=== PATIENT | female | born 1965 | race Caucasian/White ===

== ENCOUNTER 2016-09-14 23:57 | Inpatient (IN) | payer BC ==
[~2016-09-14] VITALS: Ht 154.9 cm; Wt 58.7 kg
[~2016-09-14 23:57] MED LIST: ASPI81TA3 PO; CLOP75TA27 PO; GEMF600T60 PO; GLIM4TAB PO; GLIP-95 PO; LANT3I SC; LISI10TA2 PO; OLME40TA14 PO; SITA1TAB7 PO
[2016-09-15 02:55] VITALS: BP 158/72; RESP 18
[2016-09-15] MEDS ORDERED: ACETAMINOPHEN 325 MG TAB PO PRN (04:30)
[2016-09-15] MEDS ORDERED: VANCOMYCIN 1 GM in NS 250 ML IVPB SCH ×2 (05:00→18:00)
[2016-09-15 05:27] VITALS: BP 137/82
[2016-09-15] MEDS ORDERED: GLUCOSE GEL 15 GRAM TUBE PO PRN ×2 (05:30)
[2016-09-15] MEDS ORDERED: DEXTROSE 50% 50 ML SYRINGE IV PRN ×2 (05:30)
[2016-09-15] MEDS ORDERED: GLUCAGON 1 MG INJ IM PRN (05:30)
[2016-09-15] MEDS: morphine 4 MG/ML VIAL IV PRN ×2 (05:39→20:42)
[2016-09-15 07:36] VITALS: BP 146/67; RESP 18
[2016-09-15 07:37] LABS: BASOPHILS % 0.2 % (0.0-2.0); EOSINOPHILS # 0.2 10^3/ul (0.0-0.5); EOSINOPHILS % 2.1 % (0.0-7.0); HEMATOCRIT 32.2 % (37.0-47.0); HEMOGLOBIN 10.9 g/dl (12.0-16.0); LYMPHOCYTES # 1.3 10^3/ul (0.8-2.9); LYMPHOCYTES % 15.9 % (15.0-51.0); MEAN CORPUSCULAR HEMOGLOBIN 30.4 pg (29.0-33.0); MEAN CORPUSCULAR VOLUME 89.3 fl (82.0-101.0); MEAN PLATELET VOLUME 8.8 fl (7.4-10.4); MONOCYTE # 0.7 10^3/ul (0.3-0.9); MONOCYTES % 9.2 % (0.0-11.0); NEUTROPHIL # 5.7 10^3/ul (1.6-7.5); NEUTROPHILS % 72.6 % (39.0-77.0); PLATELET COUNT 278 10^3/UL (140-440); RED CELL DISTRIBUTION WIDTH 14.9 % (11.5-14.5); UNCORRECTED WBC 7.9 10^3/ul (4.8-10.8); WHITE BLOOD COUNT 7.9 10^3/ul (4.8-10.8)
[2016-09-15 07:59] LABS: CONDITION 1; LH ANALYZER COMMENTS 1
[2016-09-15] MEDS ORDERED: metFORMIN 500 MG TAB PO SCH (08:00)
[2016-09-15] MEDS ORDERED: GLIMEPIRIDE 4 MG TAB PO SCH (08:00)
[2016-09-15 08:08] LABS: MAGNESIUM 1.8 mg/dl (1.7-2.5); PHOSPHORUS 3.9 mg/dl (2.5-4.9)
[2016-09-15] MEDS: ACCUCHECK XX SCH ×4 (08:15→21:00)
[2016-09-15] MEDS: CEFEPIME 1GM/50 ML (PMX) 50 ML IVPB SCH ×2 (08:15→22:03)
[2016-09-15] MEDS: CLOPIDOGREL 75 MG TAB PO SCH (08:16)
[2016-09-15] MEDS: ASPIRIN 81 MG TAB PO SCH (08:16)
[2016-09-15] MEDS: GEMFIBROZIL 600 MG TAB PO SCH ×2 (08:16→21:31)
[2016-09-15] MEDS: LINAGLIPTIN 5 MG TABLET PO SCH (08:16)
[2016-09-15 08:19] LABS: ALBUMIN 3.6 g/dl (3.3-4.9)
[2016-09-15] MEDS: LISINOPRIL 10 MG TAB PO SCH (08:19)
[2016-09-15 08:20] LABS: POTASSIUM 4.5 mmol/L (3.5-5.1)
[2016-09-15 08:22] LABS: ALBUMIN/GLOBULIN RATIO 1.02; BILIRUBIN,INDIRECT 0.3 mg/dl (0-1.1); BILIRUBIN,TOTAL 0.3 mg/dl (0.2-1.3); CREATININE 0.5 mg/dl (0.44-1.00); TOTAL PROTEIN 7.1 g/dl (6.1-8.1)
[2016-09-15] MEDS ORDERED: NON-FORMULARY/PATIENT OWN MED (Olmesartan Medoxomil (Benicar) 40 MG) PO SCH (09:00)
[2016-09-15] MEDS ORDERED: NON-FORMULARY/PATIENT OWN MED (Sitagliptin Phos-Metformin Hcl (Janumet) 1 TAB) PO SCH (09:00)
[2016-09-15] MEDS ORDERED: LOSARTAN 50 MG TAB PO SCH (09:00)
[2016-09-15] MEDS ORDERED: VANCOMYCIN IV PER PHARMACY XX SCH (09:00)
[2016-09-15] MEDS: INSULIN ASPART [NOVOLOG] 3 ML PEN SC SCH ×4 (09:46→21:59)
--- NOTE | 2016-09-15 10:25 | HP ---
DATE OF ADMISSION: 09/15/2016 CHIEF COMPLAINT: Right fourth toe pain and ulcer. 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 The patient recently had the total leg amputation at the [facility] in July. She stated that she had noticed some redness on the dorsum of her right foot as well as so me ulcer between the 4th and the 5th toe, which is also very tender, especially with movement of he art rate toes. She denied any chest pain, shortness of breath, nausea, vomiting, but reported occas ional subjective fever. Again, the patient has been transferred here to [facility] because of insurance re asons. The is at the bedside. REVIEW OF SYSTEMS: A 12-point review performed and negative except as mentioned in HPI. PAST MEDICAL HISTORY: As per HPI. PAST SURGICAL HISTORY: As per HPI. SOCIAL HISTORY: Denied a history of tobacco, alcohol or illicit drug use. ALLERGIES: NO KNOWN DRUG ALLERGIES. HOME MEDICATIONS: See medications. PHYSICAL EXAMINATION: GENERAL: The patient is lying in bed in no acute distress. She speaks very limited Beninese, but an swering questions appropriately through a comp field case manager. is at the bedside. The marquita ent has at the bedside who also provided some information. HEENT: She is but no obvious head deformity. Pupils are reactive to light. Extraocular muscles in tact. CARDIOVASCULAR: Slightly tachycardic with regular rate and rhythm. LUNGS: Clear anteriorly. ABDOMEN: Soft, nontender. No grimaces noted on palpation. There are positive bowel sounds. EXTREMITIES: Her left leg just completely amputated at the hip, which is covered with a draining tu be in site. There is an ulcer between the right 4th and 5th toe which was also very tender during t he examination. The ulcer did not have any drainage. There is also a small area of erythema on the dorsum of her right foot. LABORATORY: Currently pending here. IMPRESSION: 1. Right foot diabetic ulcer. 2. Recent left total leg amputation. 3. History of diabetes. 4. History of hypertension. 5. History of peripheral vascular disease. PLAN: The patient will be placed on broad spectrum antibiotics including coverage for pseudomonas, especially given that she is diabetic. We will send a blood culture as well as a wound culture. We will place an ID consult. We will also place a wound care consult. The daytime team needs to plac e a podiatry consult as well. We will provide pain medications as needed. For her diabetes, she wi ll be on insulin while in house. She will be continued with her antihypertensives with adjustment a s needed. Further workup and management will be per clinical course. Dictated By: RHETT WEST/TRACE Conf#: [id number] DID#: [id number]
--- NOTE | 2016-09-15 11:51 | PN ---
Date/Time of Note Date/Time of Note DATE: 09/15/16 TIME: 11:46 Assessment/Plan VTE Prophylaxis VTE Prophylaxis Intervention: contraindicated (May need surgery.) Lines/Catheters IV Catheter Type (from Nrs): Saline Lock Urinary Cath still in place: No Assessment/Plan Chief Complaint/Hosp Course Subjective: 09/15-pain improved. No fever toxicity. Objective: vss PE No pallor adenopathy or carotid bruits Reg, no m/r/g CTAB Bs+ nt nd, no M/R/G LLE: AKA status w drain. RLE: Erythema third to fifth toes. Poor pulses. Diabetic neuropathy. No warmth. A/P 1. Rt lwr extremity SSTI vs lymphangitis vs ischemia. Stable consult podiatry / ID. 2. Left AKA status; continue drain care 3. Chronic diabetes over 20 years 4. Diabetic neuropathy 5. Chr PAD; ho lt angioplasty. Rt SFA dz? Cont asa/ Plavix. Dr Finley consult? 6. Anemia 7. Deconditioning 8. Metabolic syndrome 9. Constipation hemorrhoids Problems: Exam/Review of Systems Vital Signs Vitals Vital Signs Date Time Temp Pulse Resp B/P Pulse Ox O2 Delivery O2 Flow Rate FiO2 09/15/16 07:36 98.8 80 18 146/67 96 Intake and Output 09/14/16 09/14/16 09/15/16 15:00 23:00 07:00 Intake Total 100 ml Balance 100 ml Results Result Diagram: 09/15/16 0652 09/15/16 0652 Results 24 hrs Laboratory Tests Test 09/15/16 06:52 09/15/16 07:53 Alanine Aminotransferase (ALT/SGPT) 25 Albumin 3.6 Albumin/Globulin Ratio 1.02 Alkaline Phosphatase 127 H Anion Gap 14 Aspartate Amino Transf (AST/SGOT) 21 Basophils # 0.0 Basophils % 0.2 Blood Morphology Comment Blood Urea Nitrogen 14 Calcium Level 9.0 Carbon Dioxide Level 28 Chloride Level 104 Creatinine 0.50 Direct Bilirubin 0.00 Eosinophils # 0.2 Eosinophils % 2.1 Globulin 3.50 H Glucose Level 181 Hematocrit 32.2 L Hemoglobin 10.9 L Indirect Bilirubin 0.3 Lymphocytes # 1.3 Lymphocytes % 15.9 Magnesium Level 1.8 Mean Corpuscular Hemoglobin 30.4 Mean Corpuscular Hemoglobin Concent 34.0 Mean Corpuscular Volume 89.3 Mean Platelet Volume 8.8 Monocytes # 0.7 Monocytes % 9.2 Neutrophils # 5.7 Neutrophils % 72.6 Nucleated Red Blood Cells # 0.0 Nucleated Red Blood Cells % 0.0 Phosphorus Level 3.9 Platelet Count 278 # Potassium Level 4.5 Red Blood Count 3.60 L Red Cell Distribution Width 14.9 H Sodium Level 141 Total Bilirubin 0.3 Total Protein 7.1 White Blood Count 7.9 # Bedside Glucose 170 Medications Medications Current Medications Acetaminophen (Tylenol Tab) 650 mg Q6H PRN PO PAIN AND OR ELEVATED TEMP; Start 09/15/16 at 04:30 Morphine Sulfate (morphine) 3 mg Q4H PRN IV PAIN LEVEL 7-10 Last administered on 09/15/16 05:39; Admin Dose 3 MG; Start 09/15/16 at 04:30 Ondansetron HCl 4 mg 4 mg Q6H PRN IV NAUSEA AND/OR VOMITING; Start 09/15/16 at 04:30 Cefepime HCl (Maxipime 1gm/50 ml (Pmx)) 50 ml @ 100 mls/hr Q12 IVPB Last administered on 09/15/16 08:15; Admin Dose 100 MLS/HR; Start 09/15/16 at 09:00 Aspirin (Aspirin) 81 mg DAILY PO Last administered on 09/15/16 08:16; Admin Dose 81 MG; Start 09/15/16 at 09:00 Clopidogrel Bisulfate (plaVIX) 75 mg DAILY PO Last administered on 09/15/16 08 :16; Admin Dose 75 MG; Start 09/15/16 at 09:00 Gemfibrozil (Lopid) 600 mg BID PO Last administered on 09/15/16 08:16; Admin Dose 600 MG; Start 09/15/16 at 09:00 Insulin Glargine (Lantus) 20 unit HS SC ; Start 09/15/16 at 21:00 Lisinopril (Zestril) 10 mg DAILY PO Last administered on 09/15/16 08:19; Admin Dose 10 MG; Start 09/15/16 at 09:00 Diagnostic Test (Pha) (Accucheck) 1 ea 02 XX ; Start 09/16/16 at 02:00 Miscellaneous Information 1 ea NOTE XX ; Start 09/15/16 at 05:30 Glucose (Glutose) 15 gm Q15M PRN PO DECREASED GLUCOSE; Start 09/15/16 at 05:30 Glucose (Glutose) 22.5 gm Q15M PRN PO DECREASED GLUCOSE; Start 09/15/16 at 05: 30 Dextrose (D50w Syringe) 25 ml Q15M PRN IV DECREASED GLUCOSE; Start 09/15/16 at 05:30 Dextrose (D50w Syringe) 50 ml Q15M PRN IV DECREASED GLUCOSE; Start 09/15/16 at 05:30 Glucagon (Glucagen) 1 mg Q15M PRN IM DECREASED GLUCOSE; Start 09/15/16 at 05:30 Glucose (Glutose) 15 gm Q15M PRN BUCCAL DECREASED GLUCOSE; Start 09/15/16 at 05 :30 Linagliptin (Tradjenta) 5 mg DAILY PO Last administered on 09/15/16t 08:16; Admin Dose 5 MG; Start 09/15/16 at 09:00 GASTON CELAYA MD Sep 15, 2016 11:51
[2016-09-15] MEDS ORDERED: HYDROCORTISONE 25 MG SUPP PR PRN (12:00)
--- NOTE | 2016-09-15 13:52 | RADRPT ---
PROCEDURE: XR Chest. CLINICAL INDICATION: Diabetic foot ulcer. Screening chest x-ray. TECHNIQUE: Single frontal view of the chest was obtained COMPARISON: Chest x-ray 02/12/2015; chest x-ray 02/12/2015. FINDINGS: The soft tissues are normal. The bony elements are normal. The heart, left side aorta, cardiomedias tinal silhouette, pulmonary vasculature and hilar structures are normal. The lungs are clear. The co stophrenic angles are normal. There is a nodular density projecting at the level of the anterior rig ht first rib which is stable and likely represents costicartilage. A lordotic view can be performed if desired for confirmation. IMPRESSION: 1. Stable chest x-ray with no evidence of active cardiopulmonary disease. RPTAT:AAJJ Physician Fred Date Time Electronically viewed and signed by Roel Cole Physician on 09/15/2016 13:52 OBDULIA/
--- NOTE | 2016-09-15 13:54 | QN ---
Documentation Comment Right diabetic foot infection. ID consult requested. Dr. Elias will see pt shortly. Thank you. APURVA VILLAREAL NP Sep 15, 2016 13:54
--- NOTE | 2016-09-15 14:43 | RADRPT ---
Vent Rate: 79 bpm RR Interval: 0 msec AK Interval: 158 msec QRS Duration: 74 msec QT Interval: 374 msec QTC Interval: 428 msec P-R-T [place]: 63 - -54 - 41 degrees Normal sinus rhythm Left anterior fascicular block Abnormal ECG Electronically Signed By: Flaco Kohler [id number]
[2016-09-15 19:34] VITALS: BP 142/79; RESP 16
[2016-09-15] MEDS ORDERED: INSULIN GLARGINE [LANtus] 3 ML PEN SC SCH (21:00)
[2016-09-15] MEDS: LACTOBACILLUS CHEW TAB PO SCH (21:31)
[2016-09-15] MEDS: DOCUSATE SODIUM 100 MG CAP PO SCH (21:31)
--- NOTE | 2016-09-15 23:04 | CONS ---
Date/Time of Note Date/Time of Note DATE: 09/15/16 TIME: 22:59 Assessment/Plan Assessment/Plan Problems: (1) Open wound of right foot (2) Cellulitis of right foot (3) Diabetes, polyneuropathy (4) History of above knee amputation (5) Peripheral vascular disease Additional Assessment/Plan Patient is at risk for limb loss. She is already status post above-knee amputation of the left lower extremity secondary to an infection. Patient must continue on IV antibiotics at this time. Peripheral vascular disease must be evaluated fully by vascular surgery. She may require incision and drainage with debridement of necrotic tissue of the right foot in the fourth webspace. Nonweightbearing on the right foot is ordered. Patient will be followed in- house. Thank you very much for involving me in the care of this patient. Consultation Date/Type/Reason Admit Date/Time Sep 15, 2016 at 02:30 Date of Consultation: Sep 15, 2016 Type of Consultation: Foot and ankle surgery Reason for Consultation Right foot infection and open wound. Hx of Present Illness Thank you very much for involving me in the care of this patient. As you very well know this is a 50-year-old female patient with multiple medical problems including recent below-knee amputation above the knee amputation 6 months ago secondary to infection and gangrene, peripheral vascular disease, hypertension, diabetes mellitus with peripheral neuropathy who has developed a new infection on her right foot with an open wound. I was consulted for evaluation and treatment. Patient is Colombian-speaking and her son was present and was translating for her in Colombian. As per history of present illness. Past Medical History As per history of present illness. Past Surgical History As per history of present illness. Social History As per history of present illness. Smoking Status: Never smoker Exam/Review of Systems Vital Signs Vitals Vital Signs Date Time Temp Pulse Resp B/P Pulse Ox O2 Delivery O2 Flow Rate FiO2 09/15/16 19:34 98.5 86 16 142/79 98 Intake and Output 09/14/16 09/14/16 09/15/16 15:00 23:00 07:00 Intake Total 100 ml Balance 100 ml Exam Patient is in no acute distress laying supine in bed. She is status post above- the-knee amputation of the left lower extremity well-healed with no complication. Right foot shows open wound in the fourth webspace with streaking noted from the webspace going proximally across the anterior medial ankle joint. There is edema present with erythema and malodor. No actual pus or bleeding noted. Dorsalis pedis pulses not palpable and capillary filling time is significantly delayed. Sensation is decreased to sharp dull vibratory and temperature stimuli. White count 7.9. Results Result Diagram: 09/15/16 0652 09/15/16 0652 Results 24 hrs Laboratory Tests Test 09/15/16 06:52 09/15/16 07:53 09/15/16 11:52 09/15/16 14:35 Alanine Aminotransferase (ALT/SGPT) 25 Albumin 3.6 Albumin/Globulin Ratio 1.02 Alkaline Phosphatase 127 H Anion Gap 14 Aspartate Amino Transf (AST/SGOT) 21 Basophils # 0.0 Basophils % 0.2 Blood Morphology Comment Blood Urea Nitrogen 14 Calcium Level 9.0 Carbon Dioxide Level 28 Chloride Level 104 Creatinine 0.50 Direct Bilirubin 0.00 Eosinophils # 0.2 Eosinophils % 2.1 Globulin 3.50 H Glucose Level 181 Hematocrit 32.2 L Hemoglobin 10.9 L Indirect Bilirubin 0.3 Lymphocytes # 1.3 Lymphocytes % 15.9 Magnesium Level 1.8 Mean Corpuscular Hemoglobin 30.4 Mean Corpuscular Hemoglobin Concent 34.0 Mean Corpuscular Volume 89.3 Mean Platelet Volume 8.8 Monocytes # 0.7 Monocytes % 9.2 Neutrophils # 5.7 Neutrophils % 72.6 Nucleated Red Blood Cells # 0.0 Nucleated Red Blood Cells % 0.0 Phosphorus Level 3.9 Platelet Count 278 # Potassium Level 4.5 Red Blood Count 3.60 L Red Cell Distribution Width 14.9 H Sodium Level 141 Total Bilirubin 0.3 Total Protein 7.1 White Blood Count 7.9 # Bedside Glucose 170 159 Urine Test NEGATIVE Test 09/15/16 17:25 09/15/16 21:39 Bedside Glucose 198 181 Medications Medications Current Medications Acetaminophen (Tylenol Tab) 650 mg Q6H PRN PO PAIN AND OR ELEVATED TEMP Last administered on 09/15/16 19:55; Admin Dose 650 MG; Start 09/15/16 at 04:30 Morphine Sulfate (morphine) 3 mg Q4H PRN IV PAIN LEVEL 7-10 Last administered on 09/15/16 20:42; Admin Dose 3 MG; Start 09/15/16 at 04:30 Ondansetron HCl 4 mg 4 mg Q6H PRN IV NAUSEA AND/OR VOMITING; Start 09/15/16 at 04:30 Cefepime HCl (Maxipime 1gm/50 ml (Pmx)) 50 ml @ 100 mls/hr Q12 IVPB Last administered on 09/15/16 22:03; Admin Dose 100 MLS/HR; Start 09/15/16 at 09:00 Aspirin (Aspirin) 81 mg DAILY PO Last administered on 09/15/16 08:16; Admin Dose 81 MG; Start 09/15/16 at 09:00 Clopidogrel Bisulfate (plaVIX) 75 mg DAILY PO Last administered on 09/15/16 08 :16; Admin Dose 75 MG; Start 09/15/16 at 09:00 Gemfibrozil (Lopid) 600 mg BID PO Last administered on 09/15/16 21:31; Admin Dose 600 MG; Start 09/15/16 at 09:00 Insulin Glargine (Lantus) 20 unit HS SC Last administered on 09/15/16 22:00; Admin Dose 20 UNIT; Start 09/15/16 at 21:00 Lisinopril (Zestril) 10 mg DAILY PO Last administered on 09/15/16 08:19; Admin Dose 10 MG; Start 09/15/16 at 09:00 Diagnostic Test (Pha) (Accucheck) 1 ea 02 XX ; Start 09/16/16 at 02:00 Miscellaneous Information 1 ea NOTE XX ; Start 09/15/16 at 05:30 Glucose (Glutose) 15 gm Q15M PRN PO DECREASED GLUCOSE; Start 09/15/16 at 05:30 Glucose (Glutose) 22.5 gm Q15M PRN PO DECREASED GLUCOSE; Start 09/15/16 at 05: 30 Dextrose (D50w Syringe) 25 ml Q15M PRN IV DECREASED GLUCOSE; Start 09/15/16 at 05:30 Dextrose (D50w Syringe) 50 ml Q15M PRN IV DECREASED GLUCOSE; Start 09/15/16 at 05:30 Glucagon (Glucagen) 1 mg Q15M PRN IM DECREASED GLUCOSE; Start 09/15/16 at 05:30 Glucose (Glutose) 15 gm Q15M PRN BUCCAL DECREASED GLUCOSE; Start 09/15/16 at 05 :30 Linagliptin (Tradjenta) 5 mg DAILY PO Last administered on 09/15/16 08:16; Admin Dose 5 MG; Start 09/15/16 at 09:00 Docusate Sodium (Colace) 200 mg HS PO Last administered on 09/15/16 21:31; Admin Dose 200 MG; Start 09/15/16 at 21:00 Hydrocortisone (Anusol-Hc Supp) 25 mg BID PRN [place] HEMORROID PAIN/ITCHING; Start 09/15/16 at 12:00 Acetaminophen/ Hydrocodone Bitart ([place] (10/325)) 1 tab Q4H PRN PO PAIN; Start 09/15/16 at 12:00 Lactobacillus Acidoph/ Bulgaricus 1 tab 1 tab BID PO Last administered on 21:31; Admin Dose 1 TAB; Start 09/15/16 at 21:00 Vancomycin HCl (Vancocin) 250 ml @ 125 mls/hr Q12H IVPB Last administered on 17:30; Admin Dose 125 MLS/HR; Start 09/15/16 at 18:00 Miscellaneous Information (*Rx Drug Level Order Reminder*) VANCO TROUGH @ 0, 500 ON... ONCE ONCE XX ; Start 09/16/16 at 05:00; Stop 09/16/16 at 05:01 MARIANA LING DPM Sep 15, 2016 23:04
[2016-09-16] MEDS: HYDROCODONE/APAP (10/325) TAB PO PRN (00:10)
[2016-09-16] MEDS: ACCUCHECK XX SCH ×5 (02:00→21:00)
[2016-09-16] MEDS ORDERED: ACCUCHECK XX SCH (02:00)
[2016-09-16] MEDS: GLUCOSE GEL 15 GRAM TUBE BUCCAL PRN ×2 (02:36→02:54)
[2016-09-16 05:32] LABS: BASOPHILS % 0.3 % (0.0-2.0); EOSINOPHILS # 0.2 10^3/ul (0.0-0.5); EOSINOPHILS % 2.9 % (0.0-7.0); HEMATOCRIT 32.7 % (37.0-47.0); HEMOGLOBIN 11.1 g/dl (12.0-16.0); LYMPHOCYTES # 1.1 10^3/ul (0.8-2.9); LYMPHOCYTES % 13.3 % (15.0-51.0); MEAN CORPUSCULAR HEMOGLOBIN 30.6 pg (29.0-33.0); MEAN CORPUSCULAR VOLUME 89.9 fl (82.0-101.0); MEAN PLATELET VOLUME 8.6 fl (7.4-10.4); MONOCYTE # 0.7 10^3/ul (0.3-0.9); MONOCYTES % 8.8 % (0.0-11.0); NEUTROPHIL # 6.4 10^3/ul (1.6-7.5); NEUTROPHILS % 74.7 % (39.0-77.0); PLATELET COUNT 309 10^3/UL (140-440); RED BLOOD COUNT 3.64 10^6/ul (4.20-5.40); RED CELL DISTRIBUTION WIDTH 14.3 % (11.5-14.5); UNCORRECTED WBC 8.5 10^3/ul (4.8-10.8); WHITE BLOOD COUNT 8.5 10^3/ul (4.8-10.8)
[2016-09-16 05:38] LABS: INR 1.11; PROTIME 14.3 Sec (12.2-14.2); PT RATIO 1.1
[2016-09-16 05:40] LABS: CONDITION 1
[2016-09-16 05:48] LABS: ALBUMIN 3.7 g/dl (3.3-4.9)
[2016-09-16 05:50] LABS: BILIRUBIN,INDIRECT 0.3 mg/dl (0-1.1); BILIRUBIN,TOTAL 0.3 mg/dl (0.2-1.3); CREATININE 0.55 mg/dl (0.44-1.00)
[2016-09-16 05:51] LABS: ALBUMIN/GLOBULIN RATIO 0.97; PHOSPHORUS 5.3 mg/dl (2.5-4.9); TOTAL PROTEIN 7.5 g/dl (6.1-8.1)
[2016-09-16 05:52] LABS: CALCIUM 9.5 mg/dl (8.4-10.2); MAGNESIUM 1.7 mg/dl (1.7-2.5)
[2016-09-16 06:21] LABS: THYROID STIMULATING HORMONE 3.29 MIU/L (0.465-4.680)
[2016-09-16 06:59] LABS: CHOL/HDL RATIO 3.1 RATIO
[2016-09-16 07:32] VITALS: BP 104/54; RESP 18
[2016-09-16] MEDS: INSULIN ASPART [NOVOLOG] 3 ML PEN SC SCH ×4 (08:00→21:00)
[2016-09-16] MEDS: ASPIRIN 81 MG TAB PO SCH (09:05)
[2016-09-16] MEDS: GEMFIBROZIL 600 MG TAB PO SCH ×2 (09:05→21:42)
[2016-09-16] MEDS: CLOPIDOGREL 75 MG TAB PO SCH (09:05)
[2016-09-16] MEDS: LINAGLIPTIN 5 MG TABLET PO SCH (09:05)
[2016-09-16] MEDS: LACTOBACILLUS CHEW TAB PO SCH ×2 (09:05→21:42)
[2016-09-16] MEDS: CEFEPIME 1GM/50 ML (PMX) 50 ML IVPB SCH (09:05)
[2016-09-16] MEDS: LISINOPRIL 10 MG TAB PO SCH (09:06)
[2016-09-16] MEDS: VANCOMYCIN 750 MG in SOD CHLORIDE 0.9% 150 ML IVPB SCH ×2 (11:15→21:52)
--- NOTE | 2016-09-16 12:27 | CONS ---
Date/Time of Note Date/Time of Note DATE: 09/16/16 TIME: 12:27 Assessment/Plan Assessment/Plan Additional Assessment/Plan asked to consult. patient seen and examined. full note to follow shortly. Consultation Date/Type/Reason Admit Date/Time Sep 15, 2016 at 02:30 Initial Consult Date 09/15/16 Type of Consultation: Foot and ankle surgery Exam/Review of Systems Vital Signs Vitals Vital Signs Date Time Temp Pulse Resp B/P Pulse Ox O2 Delivery O2 Flow Rate FiO2 09/16/16 07:32 97.8 68 18 104/54 98 Intake and Output 09/15/16 09/15/16 09/16/16 15:00 23:00 07:00 Intake Total 100 ml 1420 ml 100 ml Balance 100 ml 1420 ml 100 ml Results Result Diagram: 09/16/16 0445 09/16/16 0450 Results 24 hrs Laboratory Tests Test 09/15/16 14:35 09/15/16 17:25 09/15/16 21:39 09/16/16 02:30 Urine Test NEGATIVE Bedside Glucose 198 181 55 L Test 09/16/16 02:47 09/16/16 03:18 09/16/16 03:41 09/16/16 04:45 Bedside Glucose 53 L 87 88 Basophils # 0.0 Basophils % 0.3 Eosinophils # 0.2 Eosinophils % 2.9 Hematocrit 32.7 L Hemoglobin 11.1 L INR International Normalized Ratio 1.11 Lymphocytes # 1.1 Lymphocytes % 13.3 L Mean Corpuscular Hemoglobin 30.6 Mean Corpuscular Hemoglobin Concent 34.0 Mean Corpuscular Volume 89.9 Mean Platelet Volume 8.6 Monocytes # 0.7 Monocytes % 8.8 Neutrophils # 6.4 Neutrophils % 74.7 Nucleated Red Blood Cells # 0.0 Nucleated Red Blood Cells % 0.0 Platelet Count 309 Prothrombin Time 14.3 H Prothrombin Time Ratio 1.1 Red Blood Count 3.64 L Red Cell Distribution Width 14.3 Vancomycin Level Trough 19.9 White Blood Count 8.5 Test 09/16/16 04:50 09/16/16 06:00 09/16/16 07:38 09/16/16 11:59 Alanine Aminotransferase (ALT/SGPT) 19 Albumin 3.7 Albumin/Globulin Ratio 0.97 Alkaline Phosphatase 118 Anion Gap 14 Aspartate Amino Transf (AST/SGOT) 25 Blood Urea Nitrogen 19 Calcium Level 9.5 Carbon Dioxide Level 30 Chloride Level 98 Creatinine 0.55 Direct Bilirubin 0.00 Globulin 3.80 H Glucose Level 81 # Hemoglobin A1c 7.0 H Indirect Bilirubin 0.3 Magnesium Level 1.7 Phosphorus Level 5.3 H Potassium Level 4.0 Sodium Level 138 Thyroid Stimulating Hormone (TSH) 3.290 Total Bilirubin 0.3 Total Protein 7.5 Cholesterol Level 187 Cholesterol/HDL Ratio 3.1 HDL Cholesterol 60 LDL Cholesterol, Calculated 114 Triglycerides Level 64 Bedside Glucose 83 84 Medications Medications Current Medications Acetaminophen (Tylenol Tab) 650 mg Q6H PRN PO PAIN AND OR ELEVATED TEMP Last administered on 09/15/16 19:55; Admin Dose 650 MG; Start 09/15/16 at 04:30 Morphine Sulfate (morphine) 3 mg Q4H PRN IV PAIN LEVEL 7-10 Last administered on 09/15/16 20:42; Admin Dose 3 MG; Start 09/15/16 at 04:30 Ondansetron HCl 4 mg 4 mg Q6H PRN IV NAUSEA AND/OR VOMITING; Start 09/15/16 at 04:30 Cefepime HCl (Maxipime 1gm/50 ml (Pmx)) 50 ml @ 100 mls/hr Q12 IVPB Last administered on 09/16/16 09:05; Admin Dose 100 MLS/HR; Start 09/15/16 at 09:00 Aspirin (Aspirin) 81 mg DAILY PO Last administered on 09/16/16 09:05; Admin Dose 81 MG; Start 09/15/16 at 09:00 Clopidogrel Bisulfate (plaVIX) 75 mg DAILY PO Last administered on 09/16/16 09 :05; Admin Dose 75 MG; Start 09/15/16 at 09:00 Gemfibrozil (Lopid) 600 mg BID PO Last administered on 09/16/16 09:05; Admin Dose 600 MG; Start 09/15/16 at 09:00 Insulin Glargine (Lantus) 20 unit HS SC Last administered on 09/15/16 22:00; Admin Dose 20 UNIT; Start 09/15/16 at 21:00 Lisinopril (Zestril) 10 mg DAILY PO Last administered on 09/16/16 09:06; Admin Dose 10 MG; Start 09/15/16 at 09:00 Diagnostic Test (Pha) (Accucheck) 1 ea 02 XX ; Start 09/16/16 at 02:00 Miscellaneous Information 1 ea NOTE XX ; Start 09/15/16 at 05:30 Glucose (Glutose) 15 gm Q15M PRN PO DECREASED GLUCOSE; Start 09/15/16 at 05:30 Glucose (Glutose) 22.5 gm Q15M PRN PO DECREASED GLUCOSE; Start 09/15/16 at 05: 30 Dextrose (D50w Syringe) 25 ml Q15M PRN IV DECREASED GLUCOSE; Start 09/15/16 at 05:30 Dextrose (D50w Syringe) 50 ml Q15M PRN IV DECREASED GLUCOSE; Start 09/15/16 at 05:30 Glucagon (Glucagen) 1 mg Q15M PRN IM DECREASED GLUCOSE; Start 09/15/16 at 05:30 Glucose (Glutose) 15 gm Q15M PRN BUCCAL DECREASED GLUCOSE Last administered on 09/16/16 02:36; Admin Dose 15 GM; Start 09/15/16 at 05:30 Linagliptin (Tradjenta) 5 mg DAILY PO Last administered on 09/16/16 09:05; Admin Dose 5 MG; Start 09/15/16 at 09:00 Docusate Sodium (Colace) 200 mg HS PO Last administered on 09/15/16 21:31; Admin Dose 200 MG; Start 09/15/16 at 21:00 Hydrocortisone (Anusol-Hc Supp) 25 mg BID PRN [place] HEMORROID PAIN/ITCHING; Start 09/15/16 at 12:00 Acetaminophen/ Hydrocodone Bitart ([place] (10/325)) 1 tab Q4H PRN PO PAIN Last administered on 09/16/16 00:10; Admin Dose 1 TAB; Start 09/15/16 at 12:00 Lactobacillus Acidoph/ Bulgaricus 1 tab 1 tab BID PO Last administered on 09:05; Admin Dose 1 TAB; Start 09/15/16 at 21:00 Vancomycin HCl/ Sodium Chloride (Vancocin/NS) 150 ml @ 75 mls/hr Q12H IVPB Last administered on 09/16/16 11:15; Admin Dose 75 MLS/HR; Start 09/16/16 at 10 :00 MARIA DOLORES CHACON MD Sep 16, 2016 12:27
--- NOTE | 2016-09-16 15:16 | PN ---
Date/Time of Note Date/Time of Note DATE: 09/16/16 TIME: 15:13 Assessment/Plan VTE Prophylaxis VTE Prophylaxis Intervention: contraindicated (May need debridement; bleeding risk. Hold Lovenox) Lines/Catheters IV Catheter Type (from Nrs): [facility] Urinary Cath still in place: No Assessment/Plan Chief Complaint/Hosp Course Subjective: 09/15-pain improved. No fever toxicity. 09/16 very anxious. Mild pain. No fever. Objective: vss PE No pallor Reg, no m/r/g ctab Bs+ nt nd, no M/R/G LLE: hip disarticulation status w drain. RLE: Erythema third to fifth toes. Poor pulses. Diabetic neuropathy. No warmth. A/P 1. Rt lwr extremity SSTI vs lymphangitis vs ischemia. Stable, cont atb's; appreciate vascular/podiatry/ ID. 2. Lt hip disarticulation status; cont drain care 3. Chr diabetes over 20 years 4. Diabetic neuropathy 5. Chr PAD; ho lt angioplasty. Rt SFA dz? Cont asa/ Plavix. 6. Anemia 7. Deconditioning 8. Metabolic syndrome 9. Constipation hemorrhoids 10. Anxiety/adjustment disorder Problems: Exam/Review of Systems Vital Signs Vitals Vital Signs Date Time Temp Pulse Resp B/P Pulse Ox O2 Delivery O2 Flow Rate FiO2 09/16/16 07:32 97.8 68 18 104/54 98 Intake and Output 09/15/16 09/15/16 09/16/16 15:00 23:00 07:00 Intake Total 100 ml 1420 ml 100 ml Balance 100 ml 1420 ml 100 ml Results Result Diagram: 09/16/16 0445 09/16/16 0450 Results 24 hrs Laboratory Tests Test 09/15/16 17:25 09/15/16 21:39 09/16/16 02:30 09/16/16 02:47 Bedside Glucose 198 181 55 L 53 L Test 09/16/16 03:18 09/16/16 03:41 09/16/16 04:45 09/16/16 04:50 Bedside Glucose 87 88 Basophils # 0.0 Basophils % 0.3 Eosinophils # 0.2 Eosinophils % 2.9 Hematocrit 32.7 L Hemoglobin 11.1 L INR International Normalized Ratio 1.11 Lymphocytes # 1.1 Lymphocytes % 13.3 L Mean Corpuscular Hemoglobin 30.6 Mean Corpuscular Hemoglobin Concent 34.0 Mean Corpuscular Volume 89.9 Mean Platelet Volume 8.6 Monocytes # 0.7 Monocytes % 8.8 Neutrophils # 6.4 Neutrophils % 74.7 Nucleated Red Blood Cells # 0.0 Nucleated Red Blood Cells % 0.0 Platelet Count 309 Prothrombin Time 14.3 H Prothrombin Time Ratio 1.1 Red Blood Count 3.64 L Red Cell Distribution Width 14.3 Vancomycin Level Trough 19.9 White Blood Count 8.5 Alanine Aminotransferase (ALT/SGPT) 19 Albumin 3.7 Albumin/Globulin Ratio 0.97 Alkaline Phosphatase 118 Anion Gap 14 Aspartate Amino Transf (AST/SGOT) 25 Blood Urea Nitrogen 19 Calcium Level 9.5 Carbon Dioxide Level 30 Chloride Level 98 Creatinine 0.55 Direct Bilirubin 0.00 Globulin 3.80 H Glucose Level 81 # Hemoglobin A1c 7.0 H Indirect Bilirubin 0.3 Magnesium Level 1.7 Phosphorus Level 5.3 H Potassium Level 4.0 Sodium Level 138 Thyroid Stimulating Hormone (TSH) 3.290 Total Bilirubin 0.3 Total Protein 7.5 Test 09/16/16 06:00 09/16/16 07:38 09/16/16 11:59 Cholesterol Level 187 Cholesterol/HDL Ratio 3.1 HDL Cholesterol 60 LDL Cholesterol, Calculated 114 Triglycerides Level 64 Bedside Glucose 83 84 Medications Medications Current Medications Acetaminophen (Tylenol Tab) 650 mg Q6H PRN PO PAIN AND OR ELEVATED TEMP Last administered on 09/15/16 19:55; Admin Dose 650 MG; Start 09/15/16 at 04:30 Morphine Sulfate (morphine) 3 mg Q4H PRN IV PAIN LEVEL 7-10 Last administered on 09/15/16 20:42; Admin Dose 3 MG; Start 09/15/16 at 04:30 Ondansetron HCl 4 mg 4 mg Q6H PRN IV NAUSEA AND/OR VOMITING; Start 09/15/16 at 04:30 Cefepime HCl (Maxipime 1gm/50 ml (Pmx)) 50 ml @ 100 mls/hr Q12 IVPB Last administered on 09/16/16 09:05; Admin Dose 100 MLS/HR; Start 09/15/16 at 09:00 Aspirin (Aspirin) 81 mg DAILY PO Last administered on 09/16/16 09:05; Admin Dose 81 MG; Start 09/15/16 at 09:00 Clopidogrel Bisulfate (plaVIX) 75 mg DAILY PO Last administered on 09/16/16 09 :05; Admin Dose 75 MG; Start 09/15/16 at 09:00 Gemfibrozil (Lopid) 600 mg BID PO Last administered on 09/16/16 09:05; Admin Dose 600 MG; Start 09/15/16 at 09:00 Insulin Glargine (Lantus) 20 unit HS SC Last administered on 09/15/16 22:00; Admin Dose 20 UNIT; Start 09/15/16 at 21:00 Lisinopril (Zestril) 10 mg DAILY PO Last administered on 09/16/16 09:06; Admin Dose 10 MG; Start 09/15/16 at 09:00 Diagnostic Test (Pha) (Accucheck) 1 ea 02 XX ; Start 09/16/16 at 02:00 Miscellaneous Information 1 ea NOTE XX ; Start 09/15/16 at 05:30 Glucose (Glutose) 15 gm Q15M PRN PO DECREASED GLUCOSE; Start 09/15/16 at 05:30 Glucose (Glutose) 22.5 gm Q15M PRN PO DECREASED GLUCOSE; Start 09/15/16 at 05: 30 Dextrose (D50w Syringe) 25 ml Q15M PRN IV DECREASED GLUCOSE; Start 09/15/16 at 05:30 Dextrose (D50w Syringe) 50 ml Q15M PRN IV DECREASED GLUCOSE; Start 09/15/16 at 05:30 Glucagon (Glucagen) 1 mg Q15M PRN IM DECREASED GLUCOSE; Start 09/15/16 at 05:30 Glucose (Glutose) 15 gm Q15M PRN BUCCAL DECREASED GLUCOSE Last administered on 09/16/16 02:36; Admin Dose 15 GM; Start 09/15/16 at 05:30 Linagliptin (Tradjenta) 5 mg DAILY PO Last administered on 09/16/16 09:05; Admin Dose 5 MG; Start 09/15/16 at 09:00 Docusate Sodium (Colace) 200 mg HS PO Last administered on 09/15/16 21:31; Admin Dose 200 MG; Start 09/15/16 at 21:00 Hydrocortisone (Anusol-Hc Supp) 25 mg BID PRN [place] HEMORROID PAIN/ITCHING; Start 09/15/16 at 12:00 Acetaminophen/ Hydrocodone Bitart ([place] (10)) 1 tab Q4H PRN PO PAIN Last administered on 09/16/16 00:10; Admin Dose 1 TAB; Start 09/15/16 at 12:00 Lactobacillus Acidoph/ Bulgaricus 1 tab 1 tab BID PO Last administered on 09:05; Admin Dose 1 TAB; Start 09/15/16 at 21:00 Vancomycin HCl/ Sodium Chloride (Vancocin/NS) 150 ml @ 75 mls/hr Q12H IVPB Last administered on 09/16/16 11:15; Admin Dose 75 MLS/HR; Start 09/16/16 at 10 :00 Enoxaparin Sodium (Lovenox) 40 mg DAILY SC ; Start 09/16/16 at 15:00 Famotidine (Pepcid) 20 mg DAILY PO ; Start 09/16/16 at 15:00 GASTON CELAYA MD Sep 16, 2016 15:15
[2016-09-16] MEDS: FAMOTIDINE 20 MG TAB PO SCH (15:28)
[2016-09-16] MEDS: ENOXAPARIN 40 MG/0.4 ML SYG SC SCH (15:30)
[2016-09-16] MEDS: morphine 4 MG/ML VIAL IV PRN ×2 (15:34→21:43)
--- NOTE | 2016-09-16 16:19 | CONS ---
Date/Time of Note Date/Time of Note DATE: 09/16/16 TIME: 16:02 Assessment/Plan Assessment/Plan Chief Complaint/Hosp Course 1. dm foot ulcer 2. 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 hx of esbl e.coli 4. pvd 5. 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 She has a known hx of esbl e.coli and was treated at [facility] in summer. Constitutional: improved, no complaints Eyes: no complaints ENT: no complaints Respiratory: no complaints Cardiovascular: no complaints Gastrointestinal: no complaints Genitourinary: no complaints Musculoskeletal: no complaints Skin: no complaints Neurologic: no complaints Endocrine: no complaints Lymphatic: no complaints Psychological: nl mood/affect, no complaints Additional Comments right foot pain Past Medical History as per hpi Social History Smoking Status: Never smoker Exam/Review of Systems Vital Signs Vitals Vital Signs Date Time Temp Pulse Resp B/P Pulse Ox O2 Delivery O2 Flow Rate FiO2 09/16/16 07:32 97.8 68 18 104/54 98 Intake and Output 09/15/16 09/15/16 09/16/16 15:00 23:00 07:00 Intake Total 100 ml 1420 ml 100 ml Balance 100 ml 1420 ml 100 ml Exam Constitutional: alert, oriented, well developed Psych: nl mood/affect, no complaints Head: atraumatic, normocephalic Eyes: EOMI, PERRL, nl conjunctiva, nl lids, nl sclera ENMT: nl external ears & nose, nl lips & teeth, nl nasal mucosa & septum Neck: non-tender, supple Respiratory: clear to auscultation, normal air movement Cardiovascular: nl pulses, regular rate and rhythm Gastrointestinal: nl liver, spleen, non-tender, soft Musculoskeletal: nl extremities to inspection, nl gait and stance Extremities: normal pulses Neurological: [employer] II-XII intact, nl mental status, nl speech, nl strength Additional Comments small ulceration on right foot. Results Result Diagram: 09/16/16 0445 09/16/16 0450 Results 24 hrs Laboratory Tests Test 09/15/16 17:25 09/15/16 21:39 09/16/16 02:30 09/16/16 02:47 Bedside Glucose 198 181 55 L 53 L Test 09/16/16 03:18 09/16/16 03:41 09/16/16 04:45 09/16/16 04:50 Bedside Glucose 87 88 Basophils # 0.0 Basophils % 0.3 Eosinophils # 0.2 Eosinophils % 2.9 Hematocrit 32.7 L Hemoglobin 11.1 L INR International Normalized Ratio 1.11 Lymphocytes # 1.1 Lymphocytes % 13.3 L Mean Corpuscular Hemoglobin 30.6 Mean Corpuscular Hemoglobin Concent 34.0 Mean Corpuscular Volume 89.9 Mean Platelet Volume 8.6 Monocytes # 0.7 Monocytes % 8.8 Neutrophils # 6.4 Neutrophils % 74.7 Nucleated Red Blood Cells # 0.0 Nucleated Red Blood Cells % 0.0 Platelet Count 309 Prothrombin Time 14.3 H Prothrombin Time Ratio 1.1 Red Blood Count 3.64 L Red Cell Distribution Width 14.3 Vancomycin Level Trough 19.9 White Blood Count 8.5 Alanine Aminotransferase (ALT/SGPT) 19 Albumin 3.7 Albumin/Globulin Ratio 0.97 Alkaline Phosphatase 118 Anion Gap 14 Aspartate Amino Transf (AST/SGOT) 25 Blood Urea Nitrogen 19 Calcium Level 9.5 Carbon Dioxide Level 30 Chloride Level 98 Creatinine 0.55 Direct Bilirubin 0.00 Globulin 3.80 H Glucose Level 81 # Hemoglobin A1c 7.0 H Indirect Bilirubin 0.3 Magnesium Level 1.7 Phosphorus Level 5.3 H Potassium Level 4.0 Sodium Level 138 Thyroid Stimulating Hormone (TSH) 3.290 Total Bilirubin 0.3 Total Protein 7.5 Test 09/16/16 06:00 09/16/16 07:38 09/16/16 11:59 Cholesterol Level 187 Cholesterol/HDL Ratio 3.1 HDL Cholesterol 60 LDL Cholesterol, Calculated 114 Triglycerides Level 64 Bedside Glucose 83 84 Medications Medications Current Medications Acetaminophen (Tylenol Tab) 650 mg Q6H PRN PO PAIN AND OR ELEVATED TEMP Last administered on 09/15/16 19:55; Admin Dose 650 MG; Start 09/15/16 at 04:30 Morphine Sulfate (morphine) 3 mg Q4H PRN IV PAIN LEVEL 7-10 Last administered on 09/16/16 15:34; Admin Dose 3 MG; Start 09/15/16 at 04:30 Ondansetron HCl 4 mg 4 mg Q6H PRN IV NAUSEA AND/OR VOMITING; Start 09/15/16 at 04:30 Cefepime HCl (Maxipime 1gm/50 ml (Pmx)) 50 ml @ 100 mls/hr Q12 IVPB Last administered on 09/16/16 09:05; Admin Dose 100 MLS/HR; Start 09/15/16 at 09:00 Aspirin (Aspirin) 81 mg DAILY PO Last administered on 09/16/16 09:05; Admin Dose 81 MG; Start 09/15/16 at 09:00 Clopidogrel Bisulfate (plaVIX) 75 mg DAILY PO Last administered on 09/16/16 09 :05; Admin Dose 75 MG; Start 09/15/16 at 09:00 Gemfibrozil (Lopid) 600 mg BID PO Last administered on 09/16/16 09:05; Admin Dose 600 MG; Start 09/15/16 at 09:00 Lisinopril (Zestril) 10 mg DAILY PO Last administered on 09/16/16 09:06; Admin Dose 10 MG; Start 09/15/16 at 09:00 Diagnostic Test (Pha) (Accucheck) 1 ea 02 XX ; Start 09/16/16 at 02:00 Miscellaneous Information 1 ea NOTE XX ; Start 09/15/16 at 05:30 Glucose (Glutose) 15 gm Q15M PRN PO DECREASED GLUCOSE; Start 09/15/16 at 05:30 Glucose (Glutose) 22.5 gm Q15M PRN PO DECREASED GLUCOSE; Start 09/15/16 at 05: 30 Dextrose (D50w Syringe) 25 ml Q15M PRN IV DECREASED GLUCOSE; Start 09/15/16 at 05:30 Dextrose (D50w Syringe) 50 ml Q15M PRN IV DECREASED GLUCOSE; Start 09/15/16 at 05:30 Glucagon (Glucagen) 1 mg Q15M PRN IM DECREASED GLUCOSE; Start 09/15/16 at 05:30 Glucose (Glutose) 15 gm Q15M PRN BUCCAL DECREASED GLUCOSE Last administered on 09/16/16 02:36; Admin Dose 15 GM; Start 09/15/16 at 05:30 Linagliptin (Tradjenta) 5 mg DAILY PO Last administered on 09/16/16 09:05; Admin Dose 5 MG; Start 09/15/16 at 09:00 Docusate Sodium (Colace) 200 mg HS PO Last administered on 09/15/16 21:31; Admin Dose 200 MG; Start 09/15/16 at 21:00 Hydrocortisone (Anusol-Hc Supp) 25 mg BID PRN [place] HEMORROID PAIN/ITCHING; Start 09/15/16 at 12:00 Acetaminophen/ Hydrocodone Bitart ([place] (10/325)) 1 tab Q4H PRN PO PAIN Last administered on 09/16/16 00:10; Admin Dose 1 TAB; Start 09/15/16 at 12:00 Lactobacillus Acidoph/ Bulgaricus 1 tab 1 tab BID PO Last administered on 09:05; Admin Dose 1 TAB; Start 09/15/16 at 21:00 Vancomycin HCl/ Sodium Chloride (Vancocin/NS) 150 ml @ 75 mls/hr Q12H IVPB Last administered on 09/16/16 11:15; Admin Dose 75 MLS/HR; Start 09/16/16 at 10 :00 Enoxaparin Sodium (Lovenox) 40 mg DAILY SC Last administered on 09/16/16 15:30 ; Admin Dose 40 MG; Start 09/16/16 at 15:00 Famotidine (Pepcid) 20 mg DAILY PO Last administered on 09/16/16 15:28; Admin Dose 20 MG; Start 09/16/16 at 15:00 Insulin Glargine (Lantus) 12 unit HS SC ; Start 09/16/16 at 21:00 MARIA DOLORES CHACON MD Sep 16, 2016 16:13
--- NOTE | 2016-09-16 17:16 | CONS ---
DATE OF ADMISSION: 09/15/2016 DATE OF CONSULTATION: 09/16/2016 REFERRING PHYSICIAN: GASTON CELAYA MD. REASON FOR CONSULTATION: Right fourth toe pain. HISTORY OF PRESENT ILLNESS: This is a 50-year-old woman with longstanding diabetes whom I last saw here in 03/2015. 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 Peroneal artery was occluded distally and the anterior t ibial artery was occluded right at the ankle. I did a thrombectomy and then angioplasty of the very distal anterior tibial and had a good result, but the gangrene in the foot just progressed and I kurtz d recommended a below knee amputation. She was having some psychiatric issues and trouble coming to terms with the foot that was just not salvageable but she did not come back to see me, and she was admitted here yesterday. Since then has basically allowed the gangrene to progress. Until about 6 or 7 months ago, she was in septic shock and was sent to [facility]. She is now here with the left hip dis articulation. It looks like they had to take a flap from the abdomen to close it. There are still VACs on the incision. I spoke to her son and he said that she had basically gone into septic shock and this was done again [facility]. She was there for quite some time and is still seeing the doctors jean paul davey. She came in now to basically because she was having pain in the right 4th toe has a little bit o f ecchymosis there. This started a few days ago. Given her history, she was very concerned and cam e to the emergency room. PAST MEDICAL HISTORY: Significant for diabetes, hypertension, peripheral arterial disease, previous gangrene of the left foot. PAST SURGICAL HISTORY: Significant again for this left lower extremity angioplasty and left hip dis articulation with extensive reconstruction. She still has a VAC in place in the abdomen in the left hip area. MEDICATIONS: Consist of: 1. Tylenol. 2. Morphine. 3. Zofran. 4. Maxipime 5. Aspirin. 6. Plavix. 7. Lopid. 8. Lantus. 9. Zestril. 10. Tradjenta. 11. Colace. 12. [place]. 13. Vancomycin. ALLERGIES: HAS NO KNOWN DRUG ALLERGIES. SOCIAL HISTORY: She is a nonsmoker. She does not drink or use any illicit drugs. FAMILY HISTORY: Significant for diabetes. REVIEW OF SYSTEMS: She currently denies any chest pain, shortness of breath, nausea, vomiting, diar laron. She does have constipation. No fevers, no chills, no recent weight gain or weight loss. She is nonambulatory with a left hip disarticulation in the back in place. PHYSICAL EXAMINATION GENERAL: She is a middle-aged woman. She is currently in no distress. NECK: She has 2+ carotid pulses bilaterally. LUNGS: Clear. HEART: Regular rate and rhythm. 2+ radial pulses bilaterally. ABDOMEN: Soft. There is a VAC in place in the midline which looks like a fairly recent incision. EXTREMITIES: She has 2+ right femoral and popliteal pulses, 1+ DP pulse. The right foot is warm a nd pink. There is some sort of a thick ecchymosis and some subcutaneous hemorrhage in the right 4th toe at the base of the toe. There is no open ulceration. There is no drainage. There is no real cyanosis or discoloration of the toe. On the left again, she has the hip disarticulation and there is a VAC there. There are multiple incisions that come together. There is no drainage or any eryth angela. It looks like it is healing well. LABORATORY VALUES. Show a normal creatinine. Hemoglobin A1c is a little elevated at 7. She has no t had any recent arterial studies, not since she was here almost 2 years ago. I am going to schedul e her for a duplex of the right lower extremity but the foot does not appear to be ischemic. I wond er if she did not have some microembolization there. When I did the angiogram on her left leg, it l ooked like she probably had some microembolization there as well. I actually did a suction thrombec jonathan of the very distal anterior tibial artery prior to angioplasty. She probably ought to be antic oagulated long-term. I am going to order some arterial studies. She is on Lovenox currently and so me aspirin and Plavix so for now that should be adequate but it has not broken down and the foot yusuf s not appear to be ischemic. She might even benefit from hyperbaric oxygen therapy if this is a yuliya roembolic event. Dictated By: KAYLEIGH IYER/NTS Conf#: [id number] DID#: [id number] CC: MARIANA LING DPM; MARIA DOLORES CHACON MD; GASTON CELAYA MD;*End*
[2016-09-16] MEDS: IMIPENEM-CILAST 500MG IV (PMX) 100 ML IVPB SCH (18:13)
--- NOTE | 2016-09-16 18:53 | RADRPT ---
PROCEDURE: US Lower extremity arterial. CLINICAL INDICATION: peripheral arterial disease, claudication, leg pain TECHNIQUE: Multiple sonographic images of the right lower extremity arteries were obtained utilizi ng grayscale, color-flow and doppler imaging. The images were reviewed on a PACS workstation. COMPARISON: February 12, 2015 FINDINGS: Diffuse vascular calcific plaque is present throughout the right lower extremity arterial system Velocities and waveforms were obtained as described below. RIGHT LEG: Right common femoral artery: 92 cm/s; biphasic waveforms Right proximal superficial femoral artery: 138 cm/s; monophasic waveforms Right mid superficial femoral artery: 119 cm/s; monophasic waveforms Right distal superficial femoral artery: 130 cm/s; monophasic waveforms Right popliteal artery: 90 cm/s; monophasic waveforms Right posterior tibial artery: 20 cm/s; monophasic waveforms Right dorsalis pedis artery: 59 cm/s; monophasic waveforms IMPRESSION: No hemodynamically significant stenosis or occlusion. Diffusely diminished wave forms involving the right lower extremity suggest diffuse atherosclerotic disease. Physician Anastacia Date Time Electronically viewed and signed by Physician Anastacia on 09/16/2016 18:53 ML/
[2016-09-16 19:58] VITALS: BP 127/60; PULSE 83; RESP 16
[2016-09-16] MEDS: INSULIN GLARGINE [LANtus] 3 ML PEN SC SCH (21:45)
[2016-09-16] MEDS: DOCUSATE SODIUM 100 MG CAP PO SCH (21:52)
[2016-09-17] MEDS: IMIPENEM-CILAST 500MG IV (PMX) 100 ML IVPB SCH ×4 (00:30→17:03)
[2016-09-17] MEDS: ACCUCHECK XX SCH ×5 (02:00→20:50)
[2016-09-17] MEDS: morphine 4 MG/ML VIAL IV PRN ×2 (05:33→18:13)
[2016-09-17 06:51] LABS: BASOPHILS % 0.2 % (0.0-2.0); EOSINOPHILS # 0.1 10^3/ul (0.0-0.5); EOSINOPHILS % 1.5 % (0.0-7.0); HEMOGLOBIN 11.3 g/dl (12.0-16.0); LYMPHOCYTES % 12.9 % (15.0-51.0); MEAN CORPUSCULAR HEMOGLOBIN 30.9 pg (29.0-33.0); MEAN CORPUSCULAR HGB CONC 34.3 g/dl (32.0-37.0); MEAN CORPUSCULAR VOLUME 90.1 fl (82.0-101.0); MEAN PLATELET VOLUME 8.8 fl (7.4-10.4); MONOCYTE # 0.7 10^3/ul (0.3-0.9); MONOCYTES % 9.1 % (0.0-11.0); NEUTROPHILS % 76.3 % (39.0-77.0); PLATELET COUNT 309 10^3/UL (140-440); RED BLOOD COUNT 3.66 10^6/ul (4.20-5.40); RED CELL DISTRIBUTION WIDTH 14.6 % (11.5-14.5); UNCORRECTED WBC 7.9 10^3/ul (4.8-10.8); WHITE BLOOD COUNT 7.9 10^3/ul (4.8-10.8)
[2016-09-17 06:58] LABS: CONDITION 1; LH ANALYZER COMMENTS 1
[2016-09-17 07:11] LABS: CREATININE 0.48 mg/dl (0.44-1.00); PHOSPHORUS 5.2 mg/dl (2.5-4.9)
[2016-09-17 07:12] LABS: MAGNESIUM 1.9 mg/dl (1.7-2.5)
[2016-09-17] MEDS: INSULIN ASPART [NOVOLOG] 3 ML PEN SC SCH ×4 (08:00→20:50)
[2016-09-17 08:06] VITALS: BP 136/64; RESP 18
[2016-09-17] MEDS: LINAGLIPTIN 5 MG TABLET PO SCH (09:28)
[2016-09-17] MEDS: GEMFIBROZIL 600 MG TAB PO SCH ×2 (09:28→20:45)
[2016-09-17] MEDS: CLOPIDOGREL 75 MG TAB PO SCH (09:28)
[2016-09-17] MEDS: FAMOTIDINE 20 MG TAB PO SCH (09:28)
[2016-09-17] MEDS: LISINOPRIL 10 MG TAB PO SCH (09:30)
[2016-09-17] MEDS: LACTOBACILLUS CHEW TAB PO SCH ×2 (09:30→20:45)
[2016-09-17] MEDS: ASPIRIN 81 MG TAB PO SCH (09:31)
[2016-09-17] MEDS: ENOXAPARIN 40 MG/0.4 ML SYG SC SCH (09:33)
[2016-09-17] MEDS: VANCOMYCIN 750 MG in SOD CHLORIDE 0.9% 150 ML IVPB SCH (09:34)
--- NOTE | 2016-09-17 12:55 | RADRPT ---
PROCEDURE: XR right foot. CLINICAL INDICATION: Evaluate for osteomyelitis TECHNIQUE: Three views of the right foot were obtained. COMPARISON: No prior studies are available for comparison. FINDINGS: There is no acute fracture or dislocation. There is mild joint space narrowing within the first met atarsophalangeal joint with osseous spurring. There is slight hammertoe deformity of the lesser met atarsophalangeal joints. The metatarsals are in alignment with the cuneiforms. No bony destructive changes are present. There is a small plantar calcaneal heel spur. There also enthesophytes within the posterior calcaneus at the insertion of the Achilles tendon. Atherosclerotic facet calcificati ons are noted. IMPRESSION: 1. No definite evidence for osteomyelitis although if there is a skin ulcer or high suspicion for o steomyelitis, a follow-up MRI may be obtained for additional evaluation. 2. 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 3. Plantar calcaneal heel spur and Achilles enthesopathy. 4. Atherosclerotic vascular disease. .Camilla Peterson MD, Date Time Electronically viewed and signed by .Camilla Peterson MD, on 09/17/2016 12:59 .T/
--- NOTE | 2016-09-17 14:00 | CONS ---
Date/Time of Note Date/Time of Note DATE: 09/17/16 TIME: 13:50 Assessment/Plan Assessment/Plan Chief Complaint/Hosp Course 1. Right diabetic foot ulcer with right foot SSTI 2. 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 hx of esbl e.coli infection 01/2015 4. PVD s/p catheter placement from R DOOR CUTTER into L DP artery, thrombectomy of L DP artery, revasc of L anterior tibial artery on 02/15/2015 5. IDDM Hgb A1c 7% 6. HTN associated with DM 7. ACD Recommendations: - Continue vanco (09/15/16-) and Imipenem (09/16/16-) - Consider MRI - F/u final right foot wound cx (prelim growing proteus, staph, and enterococcus ) - F/u blood cx 09/16/16 (pending) - F/u procalcitonin 09/16/16 (pending) and ESR (87) - F/u MRSA screen (pending) - Continue probiotic - Tight blood sugar control - Above d/w Dr. Elias Problems: Consultation Date/Type/Reason Admit Date/Time Sep 15, 2016 at 02:30 Initial Consult Date 09/16/16 Type of Consultation: Infectious Disease Referring Provider: GASTON CELAYA MD 24 HR Interval Summary Free Text/Dictation Pt with formed stool earlier, wound VACs intact and no new issues per CHEY Richards. Exam/Review of Systems Vital Signs Vitals Vital Signs Date Time Temp Pulse Resp B/P Pulse Ox O2 Delivery O2 Flow Rate FiO2 09/17/16 08:06 98.2 75 18 136/64 98 09/16/16 19:58 Room Air Intake and Output 09/16/16 09/16/16 09/17/16 15:00 23:00 07:00 Intake Total 250 ml 1140 ml 730 ml Balance 250 ml 1140 ml 730 ml Exam Constitutional: alert, oriented, well developed Head: atraumatic, normocephalic Neck: supple Respiratory: clear to auscultation, normal air movement Cardiovascular: regular rate and rhythm, No edema Gastrointestinal: non-tender, soft Extremities: other (Right 4th toe with bluish discoloration; small open sore in between 4th and 5th digits noted with mild erythema.) Neurological: nl mental status, nl speech Skin: other (Wound Vac to abdomen and Left hip are intact.) Results Right foot wound cx 09/15/16: WOUND CULTURE Preliminary Organism 1 PROTEUS MIRABILIS QUANTITY 1+ Organism 2 STAPHYLOCOCCUS SPECIES QUANTITY 2+ Organism 3 ENTEROCOCCUS SPECIES QUANTITY ISOLATED FROM BROTH ONLY P. MIRAB M.I.C. RX --------- --- AMPICILLIN <=2 S CEFOTAXIME S CIPROFLOXACIN >=4 R GENTAMICIN <=1 S LEVOFLOXACIN >=8 R TOBRAMYCIN <=1 S TRIMETHOPRIM/SULFAMETHOXAZOLE <=20 S Result Diagram: 09/17/1655 09/17/16554 Results 24 hrs Laboratory Tests Test 09/16/16 16:55 09/16/16 18:06 09/16/16 20:04 09/17/16 05:55 Erythrocyte Sedimentation Rate 87 H Bedside Glucose 106 153 Anion Gap 15 Basophils # 0.0 Basophils % 0.2 Blood Morphology Comment Blood Urea Nitrogen 17 Calcium Level 9.0 Carbon Dioxide Level 27 Chloride Level 100 Creatinine 0.48 Eosinophils # 0.1 Eosinophils % 1.5 Glucose Level 71 Hematocrit 33.0 L Hemoglobin 11.3 L Lymphocytes # 1.0 Lymphocytes % 12.9 L Magnesium Level 1.9 Mean Corpuscular Hemoglobin 30.9 Mean Corpuscular Hemoglobin Concent 34.3 Mean Corpuscular Volume 90.1 Mean Platelet Volume 8.8 Monocytes # 0.7 Monocytes % 9.1 Neutrophils # 6.0 Neutrophils % 76.3 Nucleated Red Blood Cells # 0.0 Nucleated Red Blood Cells % 0.0 Phosphorus Level 5.2 H Platelet Count 309 Potassium Level 4.0 Red Blood Count 3.66 L Red Cell Distribution Width 14.6 H Sodium Level 138 White Blood Count 7.9 Test 09/17/16 07:56 09/17/16 11:45 Bedside Glucose 70 99 Medications Medications Current Medications Acetaminophen (Tylenol Tab) 650 mg Q6H PRN PO PAIN AND OR ELEVATED TEMP Last administered on 09/15/16 19:55; Admin Dose 650 MG; Start 09/15/16 at 04:30 Morphine Sulfate (morphine) 3 mg Q4H PRN IV PAIN LEVEL 7-10 Last administered on 09/17/16 05:33; Admin Dose 3 MG; Start 09/15/16 at 04:30 Ondansetron HCl (Zofran Inj) 4 mg Q6H PRN IV NAUSEA AND/OR VOMITING; Start at 04:30 Aspirin (Aspirin) 81 mg DAILY PO Last administered on 09/17/16 09:31; Admin Dose 81 MG; Start 09/15/16 at 09:00 Clopidogrel Bisulfate (plaVIX) 75 mg DAILY PO Last administered on 09/17/16 09 :28; Admin Dose 75 MG; Start 09/15/16 at 09:00 Gemfibrozil (Lopid) 600 mg BID PO Last administered on 09/17/16 09:28; Admin Dose 600 MG; Start 09/15/16 at 09:00 Lisinopril (Zestril) 10 mg DAILY PO Last administered on 09/17/16 09:30; Admin Dose 10 MG; Start 09/15/16 at 09:00 Diagnostic Test (Pha) (Accucheck) 1 ea 02 XX ; Start 09/16/16 at 02:00 Miscellaneous Information 1 ea NOTE XX ; Start 09/15/16 at 05:30 Glucose (Glutose) 15 gm Q15M PRN PO DECREASED GLUCOSE; Start 09/15/16 at 05:30 Glucose (Glutose) 22.5 gm Q15M PRN PO DECREASED GLUCOSE; Start 09/15/16 at 05: 30 Dextrose (D50w Syringe) 25 ml Q15M PRN IV DECREASED GLUCOSE; Start 09/15/16 at 05:30 Dextrose (D50w Syringe) 50 ml Q15M PRN IV DECREASED GLUCOSE; Start 09/15/16 at 05:30 Glucagon (Glucagen) 1 mg Q15M PRN IM DECREASED GLUCOSE; Start 09/15/16 at 05:30 Glucose (Glutose) 15 gm Q15M PRN BUCCAL DECREASED GLUCOSE Last administered on 09/16/16 02:36; Admin Dose 15 GM; Start 09/15/16 at 05:30 Linagliptin (Tradjenta) 5 mg DAILY PO Last administered on 09/17/16 09:28; Admin Dose 5 MG; Start 09/15/16 at 09:00 Docusate Sodium (Colace) 200 mg HS PO Last administered on 09/16/16 21:52; Admin Dose 200 MG; Start 09/15/16 at 21:00 Hydrocortisone (Anusol-Hc Supp) 25 mg BID PRN [place] HEMORROID PAIN/ITCHING; Start 09/15/16 at 12:00 Acetaminophen/ Hydrocodone Bitart ([place] (10)) 1 tab Q4H PRN PO PAIN Last administered on 09/16/16 00:10; Admin Dose 1 TAB; Start 09/15/16 at 12:00 Lactobacillus Acidoph/ Bulgaricus 1 tab 1 tab BID PO Last administered on 09:30; Admin Dose 1 TAB; Start 09/15/16 at 21:00 Vancomycin HCl/ Sodium Chloride (Vancocin/NS) 150 ml @ 75 mls/hr Q12H IVPB Last administered on 09/17/16 09:34; Admin Dose 75 MLS/HR; Start 09/16/16 at 10 :00 Enoxaparin Sodium (Lovenox) 40 mg DAILY SC Last administered on 09/17/16 09:33 ; Admin Dose 40 MG; Start 09/16/16 at 15:00 Famotidine (Pepcid) 20 mg DAILY PO Last administered on 09/17/16 09:28; Admin Dose 20 MG; Start 09/16/16 at 15:00 Insulin Glargine 12 unit 12 unit HS SC Last administered on 09/16/16 21:45; Admin Dose 12 UNIT; Start 09/16/16 at 21:00 Imipenem/ Cilastatin Sodium (Primaxin 500 Mg/ 100 ml (Pmx)) 100 ml @ 100 mls/ hr Q6 IVPB Last administered on 09/17/16 12:34; Admin Dose 100 MLS/HR; Start 09/16/16 at 18:00 Miscellaneous Information (*Rx Drug Level Order Reminder*) 1 ONCE ONCE XX ; Start 09/17/16 at 21:00; Stop 09/17/16 at 21:01 Procedures Procedures Right foot x-ray 09/17/16: 1. No definite evidence for osteomyelitis although if there is a skin ulcer or high suspicion for osteomyelitis, a follow-up MRI may be obtained for additional evaluation. 2. 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 3. Plantar calcaneal heel spur and Achilles enthesopathy. 4. Atherosclerotic vascular disease. RLE arterial study 09/16/16: No hemodynamically significant stenosis or occlusion. Diffusely diminished wave forms involving the right lower extremity suggest diffuse atherosclerotic disease. CXR 09/15/16: Stable chest x-ray with no evidence of active cardiopulmonary disease. APURVA VILLAREAL NP Sep 17, 2016 14:00
[2016-09-17] MEDS: HYDROCODONE/APAP (10/325) TAB PO PRN (17:03)
--- NOTE | 2016-09-17 17:54 | PN ---
Date/Time of Note Date/Time of Note DATE: 09/17/16 TIME: 17:53 Assessment/Plan VTE Prophylaxis VTE Prophylaxis Intervention: LMWH Lines/Catheters IV Catheter Type (from Nrs): Peripheral IV Urinary Cath still in place: No Assessment/Plan Chief Complaint/Hosp Course Subjective: 09/15-pain improved. No fever toxicity. 09/16 very anxious. Mild pain. No fever. 09/17 no events. No fever toxicity. Tolerating antibiotics. Objective: vss PE No pallor Reg, no m/r/g ctab Bs+ nt nd, no M/R/G LLE: hip disarticulation status w drain. RLE: Erythema third to fifth toes. A/P 1. Rt lower ext- SSTI. Stable, cont atb's; appreciate vascular/podiatry/ID eval. 2. Lt hip disarticulation status; cont drain care 3. Chr diabetes over 20 years 4. Diabetic neuropathy 5. Chr PAD; ho lt angioplasty. Rt SFA dz? Cont asa/ Plavix. 6. Anemia 7. Deconditioning 8. Metabolic syndrome 9. Constipation hemorrhoids 10. Anxiety/adjustment disorder Problems: Exam/Review of Systems Vital Signs Vitals Vital Signs Date Time Temp Pulse Resp B/P Pulse Ox O2 Delivery O2 Flow Rate FiO2 09/17/16 08:06 98.2 75 18 136/64 98 09/16/16 19:58 Room Air Intake and Output 09/16/16 09/16/16 09/17/16 15:00 23:00 07:00 Intake Total 250 ml 1140 ml 730 ml Balance 250 ml 1140 ml 730 ml Results Result Diagram: 09/17/16 0555 09/17/16 0555 Results 24 hrs Laboratory Tests Test 09/16/16 18:06 09/16/16 20:04 09/17/16 05:55 09/17/16 07:56 Bedside Glucose 106 153 70 Anion Gap 15 Basophils # 0.0 Basophils % 0.2 Blood Morphology Comment Blood Urea Nitrogen 17 Calcium Level 9.0 Carbon Dioxide Level 27 Chloride Level 100 Creatinine 0.48 Eosinophils # 0.1 Eosinophils % 1.5 Glucose Level 71 Hematocrit 33.0 L Hemoglobin 11.3 L Lymphocytes # 1.0 Lymphocytes % 12.9 L Magnesium Level 1.9 Mean Corpuscular Hemoglobin 30.9 Mean Corpuscular Hemoglobin Concent 34.3 Mean Corpuscular Volume 90.1 Mean Platelet Volume 8.8 Monocytes # 0.7 Monocytes % 9.1 Neutrophils # 6.0 Neutrophils % 76.3 Nucleated Red Blood Cells # 0.0 Nucleated Red Blood Cells % 0.0 Phosphorus Level 5.2 H Platelet Count 309 Potassium Level 4.0 Red Blood Count 3.66 L Red Cell Distribution Width 14.6 H Sodium Level 138 White Blood Count 7.9 Test 09/17/16 11:45 09/17/16 16:46 Bedside Glucose 99 128 Medications Medications Current Medications Acetaminophen (Tylenol Tab) 650 mg Q6H PRN PO PAIN AND OR ELEVATED TEMP Last administered on 09/15/16 19:55; Admin Dose 650 MG; Start 09/15/16 at 04:30 Morphine Sulfate (morphine) 3 mg Q4H PRN IV PAIN LEVEL 7-10 Last administered on 09/17/16 05:33; Admin Dose 3 MG; Start 09/15/16 at 04:30 Ondansetron HCl (Zofran Inj) 4 mg Q6H PRN IV NAUSEA AND/OR VOMITING; Start at 04:30 Aspirin (Aspirin) 81 mg DAILY PO Last administered on 09/17/16 09:31; Admin Dose 81 MG; Start 09/15/16 at 09:00 Clopidogrel Bisulfate (plaVIX) 75 mg DAILY PO Last administered on 09/17/16 09 :28; Admin Dose 75 MG; Start 09/15/16 at 09:00 Gemfibrozil (Lopid) 600 mg BID PO Last administered on 09/17/16 09:28; Admin Dose 600 MG; Start 09/15/16 at 09:00 Lisinopril (Zestril) 10 mg DAILY PO Last administered on 09/17/16 09:30; Admin Dose 10 MG; Start 09/15/16 at 09:00 Diagnostic Test (Pha) (Accucheck) 1 ea 02 XX ; Start 09/16/16 at 02:00 Miscellaneous Information 1 ea NOTE XX ; Start 09/15/16 at 05:30 Glucose (Glutose) 15 gm Q15M PRN PO DECREASED GLUCOSE; Start 09/15/16 at 05:30 Glucose (Glutose) 22.5 gm Q15M PRN PO DECREASED GLUCOSE; Start 09/15/16 at 05: 30 Dextrose (D50w Syringe) 25 ml Q15M PRN IV DECREASED GLUCOSE; Start 09/15/16 at 05:30 Dextrose (D50w Syringe) 50 ml Q15M PRN IV DECREASED GLUCOSE; Start 09/15/16 at 05:30 Glucagon (Glucagen) 1 mg Q15M PRN IM DECREASED GLUCOSE; Start 09/15/16 at 05:30 Glucose (Glutose) 15 gm Q15M PRN BUCCAL DECREASED GLUCOSE Last administered on 09/16/16 02:36; Admin Dose 15 GM; Start 09/15/16 at 05:30 Linagliptin (Tradjenta) 5 mg DAILY PO Last administered on 09/17/16 09:28; Admin Dose 5 MG; Start 09/15/16 at 09:00 Docusate Sodium (Colace) 200 mg HS PO Last administered on 09/16/16 21:52; Admin Dose 200 MG; Start 09/15/16 at 21:00 Hydrocortisone (Anusol-Hc Supp) 25 mg BID PRN [place] HEMORROID PAIN/ITCHING; Start 09/15/16 at 12:00 Acetaminophen/ Hydrocodone Bitart ([place] (10/325)) 1 tab Q4H PRN PO PAIN Last administered on 09/17/16 17:03; Admin Dose 1 TAB; Start 09/15/16 at 12:00 Lactobacillus Acidoph/ Bulgaricus 1 tab 1 tab BID PO Last administered on 09:30; Admin Dose 1 TAB; Start 09/15/16 at 21:00 Vancomycin HCl/ Sodium Chloride (Vancocin/NS) 150 ml @ 75 mls/hr Q12H IVPB Last administered on 09/17/16 09:34; Admin Dose 75 MLS/HR; Start 09/16/16 at 10 :00 Enoxaparin Sodium (Lovenox) 40 mg DAILY SC Last administered on 09/17/16 09:33 ; Admin Dose 40 MG; Start 09/16/16 at 15:00 Famotidine (Pepcid) 20 mg DAILY PO Last administered on 09/17/16 09:28; Admin Dose 20 MG; Start 09/16/16 at 15:00 Insulin Glargine 12 unit 12 unit HS SC Last administered on 09/16/16 21:45; Admin Dose 12 UNIT; Start 09/16/16 at 21:00 Imipenem/ Cilastatin Sodium (Primaxin 500 Mg/ 100 ml (Pmx)) 100 ml @ 100 mls/ hr Q6 IVPB Last administered on 09/17/16t 17:03; Admin Dose 100 MLS/HR; Start 09/16/16 at 18:00 Miscellaneous Information (*Rx Drug Level Order Reminder*) 1 ONCE ONCE XX ; Start 09/17/16 at 21:00; Stop 09/17/16 at 21:01 GASTON CELAYA MD Sep 17, 2016 17:54
[2016-09-17 20:02] VITALS: BP 134/62; RESP 18
[2016-09-17] MEDS: DOCUSATE SODIUM 100 MG CAP PO SCH (20:46)
[2016-09-17] MEDS: INSULIN GLARGINE [LANtus] 3 ML PEN SC SCH (20:47)
[2016-09-17] MEDS: VANCOMYCIN 1 GM in NS 250 ML IVPB SCH (22:56)
--- NOTE | 2016-09-17 23:51 | PN ---
Date/Time of Note Date/Time of Note DATE: 09/17/16 TIME: 23:51 Assessment/Plan Lines/Catheters IV Catheter Type (from Nrs): Peripheral IV Vee in Place (from Nrs): No Assessment/Plan Problems: (1) Open wound of right foot (2) Cellulitis of right foot (3) Peripheral vascular disease (4) Diabetes, polyneuropathy (5) Adjustment disorder with depressed mood Status: Acute Assessment/Plan Continue IV antibiotics. No surgery recommended at this time. Patient is improving with the IV antibiotics. Patient will be followed in-house. Subjective 24 Hr Interval Summary Patient was seen and examined at bedside. She is status post infection of the right foot. Reports less pain today. States that she has been receiving IV antibiotics. Denies fever, chills, nausea or vomiting. Constitutional: no complaints Pain Control: well controlled Exam/Review of Systems Vital Signs Vitals Vital Signs Date Time Temp Pulse Resp B/P Pulse Ox O2 Delivery O2 Flow Rate FiO2 09/21/16 08:00 98.0 78 18 120/56 96 Room Air Intake and Output 09/20/16 09/20/16 09/21/16 15:00 23:00 07:00 Intake Total 730 ml 500 ml Output Total 0 ml Balance 730 ml 500 ml Exam Free Text/Dictation Right foot fourth webspace wound present with discoloration of the right fourth toe. There is decrease in streaking and erythema of the right foot. Nontender to palpation. No malodor present. Pulses noted but weak. No other changes noted on examination today. Labs reviewed. Results Result Diagram: 09/21/16 0435 09/21/16 0435 MARIANA LING DPM Sep 17, 2016 23:51
[2016-09-18] MEDS: morphine 4 MG/ML VIAL IV PRN ×2 (00:55→21:48)
[2016-09-18] MEDS: IMIPENEM-CILAST 500MG IV (PMX) 100 ML IVPB SCH ×4 (01:05→17:31)
[2016-09-18] MEDS: ACCUCHECK XX SCH ×5 (02:04→20:45)
[2016-09-18 07:15] VITALS: BP 104/54; RESP 16
[2016-09-18] MEDS: INSULIN ASPART [NOVOLOG] 3 ML PEN SC SCH ×4 (08:00→20:43)
[2016-09-18] MEDS: CLOPIDOGREL 75 MG TAB PO SCH (08:43)
[2016-09-18] MEDS: LISINOPRIL 10 MG TAB PO SCH (08:43)
[2016-09-18] MEDS: FAMOTIDINE 20 MG TAB PO SCH (08:43)
[2016-09-18] MEDS: ASPIRIN 81 MG TAB PO SCH (08:43)
[2016-09-18] MEDS: LACTOBACILLUS CHEW TAB PO SCH ×2 (08:43→20:45)
[2016-09-18] MEDS: ENOXAPARIN 40 MG/0.4 ML SYG SC SCH (08:44)
[2016-09-18] MEDS: LINAGLIPTIN 5 MG TABLET PO SCH (08:44)
[2016-09-18] MEDS: GEMFIBROZIL 600 MG TAB PO SCH ×2 (08:47→20:45)
[2016-09-18] MEDS: VANCOMYCIN 1 GM in NS 250 ML IVPB SCH ×2 (10:32→21:48)
--- NOTE | 2016-09-18 10:45 | PN ---
Date/Time of Note Date/Time of Note DATE: 09/18/16 TIME: 10:43 Assessment/Plan VTE Prophylaxis VTE Prophylaxis Intervention: LMWH Lines/Catheters IV Catheter Type (from Nrs): Saline Lock Urinary Cath still in place: No Assessment/Plan Chief Complaint/Hosp Course Subjective: 09/15-pain improved. No fever toxicity. 09/16 very anxious. Mild pain. No fever. 09/17 no events. No fever toxicity. Tolerating antibiotics. 217: No events. Updated son, who actually states patient has been more ambulatory and doing stairs at home w PT lately. Stable, less pain erythema. Objective: vss PE No pallor Reg, no m/r/g ctab Bs+ nt nd, no M/R/G LLE: hip disarticulation status w drain. RLE: Less erythema third to fifth toes. A/P 1. Rt lower ext- SSTI. Stable, cont atb's; appreciate vascular/podiatry/ID eval. PICC/IVs vs po's. Disposition snf? 2. Lt hip disarticulation status; cont drain care 3. Chr diabetes over 20 years 4. Diabetic neuropathy 5. Chr PAD; ho lt angioplasty. Rt SFA dz? Cont asa/ Plavix. 6. Anemia 7. Deconditioning 8. Metabolic syndrome 9. Constipation hemorrhoids 10. Anxiety/adjustment disorder Problems: Exam/Review of Systems Vital Signs Vitals Vital Signs Date Time Temp Pulse Resp B/P Pulse Ox O2 Delivery O2 Flow Rate FiO2 09/18/16 07:15 98.6 73 16 104/54 97 09/16/16 19:58 Room Air Intake and Output 09/17/16 09/17/16 09/18/16 15:00 23:00 07:00 Intake Total 250 ml 1340 ml 710 ml Output Total 1250 ml 600 ml Balance 250 ml 90 ml 110 ml Results Result Diagram: 09/17/16 0555 09/17/16 0555 Results 24 hrs Laboratory Tests Test 09/17/16 11:45 09/17/16 16:46 09/17/16 20:45 09/17/16 21:00 Bedside Glucose 99 128 198 Vancomycin Level Trough 11.5 Test 09/18/16 02:05 09/18/16 02:28 09/18/16 02:48 09/18/16 07:55 Bedside Glucose 61 L 95 118 75 Medications Medications Current Medications Acetaminophen (Tylenol Tab) 650 mg Q6H PRN PO PAIN AND OR ELEVATED TEMP Last administered on 09/15/16 19:55; Admin Dose 650 MG; Start 09/15/16 at 04:30 Morphine Sulfate (morphine) 3 mg Q4H PRN IV PAIN LEVEL 7-10 Last administered on 09/18/16 00:55; Admin Dose 3 MG; Start 09/15/16 at 04:30 Ondansetron HCl (Zofran Inj) 4 mg Q6H PRN IV NAUSEA AND/OR VOMITING; Start at 04:30 Aspirin (Aspirin) 81 mg DAILY PO Last administered on 09/18/16 08:43; Admin Dose 81 MG; Start 09/15/16 at 09:00 Clopidogrel Bisulfate (plaVIX) 75 mg DAILY PO Last administered on 09/18/16 08 :43; Admin Dose 75 MG; Start 09/15/16 at 09:00 Gemfibrozil (Lopid) 600 mg BID PO Last administered on 09/18/16 08:47; Admin Dose 600 MG; Start 09/15/16 at 09:00 Lisinopril (Zestril) 10 mg DAILY PO Last administered on 09/18/16 08:43; Admin Dose 10 MG; Start 09/15/16 at 09:00 Diagnostic Test (Pha) (Accucheck) 1 ea 02 XX Last administered on 09/18/16 02: 04; Admin Dose 1 EA; Start 09/16/16 at 02:00 Miscellaneous Information 1 ea NOTE XX ; Start 09/15/16 at 05:30 Glucose (Glutose) 15 gm Q15M PRN PO DECREASED GLUCOSE; Start 09/15/16 at 05:30 Glucose (Glutose) 22.5 gm Q15M PRN PO DECREASED GLUCOSE; Start 09/15/16 at 05: 30 Dextrose (D50w Syringe) 25 ml Q15M PRN IV DECREASED GLUCOSE; Start 09/15/16 at 05:30 Dextrose (D50w Syringe) 50 ml Q15M PRN IV DECREASED GLUCOSE; Start 09/15/16 at 05:30 Glucagon (Glucagen) 1 mg Q15M PRN IM DECREASED GLUCOSE; Start 09/15/16 at 05:30 Glucose (Glutose) 15 gm Q15M PRN BUCCAL DECREASED GLUCOSE Last administered on 09/16/16 02:36; Admin Dose 15 GM; Start 09/15/16 at 05:30 Linagliptin (Tradjenta) 5 mg DAILY PO Last administered on 09/18/16 08:44; Admin Dose 5 MG; Start 09/15/16 at 09:00 Docusate Sodium (Colace) 200 mg HS PO Last administered on 09/17/16 20:46; Admin Dose 200 MG; Start 09/15/16 at 21:00 Hydrocortisone (Anusol-Hc Supp) 25 mg BID PRN [place] HEMORROID PAIN/ITCHING; Start 09/15/16 at 12:00 Acetaminophen/ Hydrocodone Bitart ([place] (10325)) 1 tab Q4H PRN PO PAIN Last administered on 09/17/16 17:03; Admin Dose 1 TAB; Start 09/15/16 at 12:00 Lactobacillus Acidoph/Bulgaricus (Floranex) 1 tab BID PO Last administered on 08:43; Admin Dose 1 TAB; Start 09/15/16 at 21:00 Enoxaparin Sodium (Lovenox) 40 mg DAILY SC Last administered on 09/18/16 08:44 ; Admin Dose 40 MG; Start 09/16/16 at 15:00 Famotidine (Pepcid) 20 mg DAILY PO Last administered on 09/18/16 08:43; Admin Dose 20 MG; Start 09/16/16 at 15:00 Insulin Glargine 12 unit 12 unit HS SC Last administered on 09/17/16 20:47; Admin Dose 12 UNIT; Start 09/16/16 at 21:00 Imipenem/ Cilastatin Sodium 100 ml @ 100 mls/hr Q6 IVPB Last administered on 05:56; Admin Dose 100 MLS/HR; Start 09/16/16 at 18:00 Vancomycin HCl (Vancocin) 250 ml @ 125 mls/hr Q12H IVPB Last administered on 10:32; Admin Dose 125 MLS/HR; Start 09/17/16 at 22:00 GASTON CELAYA MD Sep 18, 2016 10:45
--- NOTE | 2016-09-18 11:18 | PN ---
Date/Time of Note Date/Time of Note DATE: 09/18/16 TIME: 11:16 Assessment/Plan VTE Prophylaxis VTE Prophylaxis Intervention: LMWH Lines/Catheters IV Catheter Type (from Nrs): Saline Lock Urinary Cath still in place: No Assessment/Plan Chief Complaint/Hosp Course Subjective: 09/15-pain improved. No fever toxicity. 09/16 very anxious. Mild pain. No fever. 09/17 no events. No fever toxicity. Tolerating antibiotics. 217: No events. Updated son, who stated that the pt has been more ambulatory lately/ doing stairs at home w PT. Stable, less pain erythema. Objective: vss PE No pallor Reg, no m/r/g ctab Bs+ nt nd, no M/R/G LLE: hip disarticulation status w drain. RLE: Less erythema third to fifth toes. A/P 1. Rt lower ext- SSTI. Stable, cont atb's. PICC/IVs vs po's. Disposition snf? 2. Lt hip disarticulation status; cont drain care 3. Chr diabetes over 20 years 4. Diabetic neuropathy 5. Chr PAD; ho lt angioplasty. Rt SFA dz? Cont asa/ Plavix. 6. Anemia 7. Deconditioning 8. Metabolic syndrome 9. Constipation hemorrhoids 10. Anxiety/adjustment disorder Problems: Exam/Review of Systems Vital Signs Vitals Vital Signs Date Time Temp Pulse Resp B/P Pulse Ox O2 Delivery O2 Flow Rate FiO2 09/18/16 07:15 98.6 73 16 104/54 97 09/16/16 19:58 Room Air Intake and Output 09/17/16 09/17/16 09/18/16 15:00 23:00 07:00 Intake Total 250 ml 1340 ml 710 ml Output Total 1250 ml 600 ml Balance 250 ml 90 ml 110 ml Results Result Diagram: 09/17/16 0555 09/17/16 0555 Results 24 hrs Laboratory Tests Test 09/17/16 11:45 09/17/16 16:46 09/17/16 20:45 09/17/16 21:00 Bedside Glucose 99 128 198 Vancomycin Level Trough 11.5 Test 09/18/16 02:05 09/18/16 02:28 09/18/16 02:48 09/18/16 07:55 Bedside Glucose 61 L 95 118 75 Medications Medications Current Medications Acetaminophen (Tylenol Tab) 650 mg Q6H PRN PO PAIN AND OR ELEVATED TEMP Last administered on 09/15/16 19:55; Admin Dose 650 MG; Start 09/15/16 at 04:30 Morphine Sulfate (morphine) 3 mg Q4H PRN IV PAIN LEVEL 7-10 Last administered on 09/18/16 00:55; Admin Dose 3 MG; Start 09/15/16 at 04:30 Ondansetron HCl (Zofran Inj) 4 mg Q6H PRN IV NAUSEA AND/OR VOMITING; Start at 04:30 Aspirin (Aspirin) 81 mg DAILY PO Last administered on 09/18/16 08:43; Admin Dose 81 MG; Start 09/15/16 at 09:00 Clopidogrel Bisulfate (plaVIX) 75 mg DAILY PO Last administered on 09/18/16 08 :43; Admin Dose 75 MG; Start 09/15/16 at 09:00 Gemfibrozil (Lopid) 600 mg BID PO Last administered on 09/18/16 08:47; Admin Dose 600 MG; Start 09/15/16 at 09:00 Lisinopril (Zestril) 10 mg DAILY PO Last administered on 09/18/16 08:43; Admin Dose 10 MG; Start 09/15/16 at 09:00 Diagnostic Test (Pha) (Accucheck) 1 ea 02 XX Last administered on 09/18/16 02: 04; Admin Dose 1 EA; Start 09/16/16 at 02:00 Miscellaneous Information 1 ea NOTE XX ; Start 09/15/16 at 05:30 Glucose (Glutose) 15 gm Q15M PRN PO DECREASED GLUCOSE; Start 09/15/16 at 05:30 Glucose (Glutose) 22.5 gm Q15M PRN PO DECREASED GLUCOSE; Start 09/15/16 at 05: 30 Dextrose (D50w Syringe) 25 ml Q15M PRN IV DECREASED GLUCOSE; Start 09/15/16 at 05:30 Dextrose (D50w Syringe) 50 ml Q15M PRN IV DECREASED GLUCOSE; Start 09/15/16 at 05:30 Glucagon (Glucagen) 1 mg Q15M PRN IM DECREASED GLUCOSE; Start 09/15/16 at 05:30 Glucose (Glutose) 15 gm Q15M PRN BUCCAL DECREASED GLUCOSE Last administered on 09/16/16 02:36; Admin Dose 15 GM; Start 09/15/16 at 05:30 Linagliptin (Tradjenta) 5 mg DAILY PO Last administered on 09/18/16 08:44; Admin Dose 5 MG; Start 09/15/16 at 09:00 Docusate Sodium (Colace) 200 mg HS PO Last administered on 09/17/16 20:46; Admin Dose 200 MG; Start 09/15/16 at 21:00 Hydrocortisone (Anusol-Hc Supp) 25 mg BID PRN [place] HEMORROID PAIN/ITCHING; Start 09/15/16 at 12:00 Acetaminophen/ Hydrocodone Bitart ([place] (10/325)) 1 tab Q4H PRN PO PAIN Last administered on 09/17/16 17:03; Admin Dose 1 TAB; Start 09/15/16 at 12:00 Lactobacillus Acidoph/Bulgaricus (Floranex) 1 tab BID PO Last administered on 08:43; Admin Dose 1 TAB; Start 09/15/16 at 21:00 Enoxaparin Sodium (Lovenox) 40 mg DAILY SC Last administered on 09/18/16 08:44 ; Admin Dose 40 MG; Start 09/16/16 at 15:00 Famotidine 20 mg 20 mg DAILY PO Last administered on 09/18/16 08:43; Admin Dose 20 MG; Start 09/16/16 at 15:00 Imipenem/ Cilastatin Sodium 100 ml @ 100 mls/hr Q6 IVPB Last administered on 05:56; Admin Dose 100 MLS/HR; Start 09/16/16 at 18:00 Vancomycin HCl (Vancocin) 250 ml @ 125 mls/hr Q12H IVPB Last administered on 10:32; Admin Dose 125 MLS/HR; Start 09/17/16 at 22:00 Insulin Glargine (Lantus) 9 unit HS SC ; Start 09/18/16 at 21:00 GASTON CELAYA MD Sep 18, 2016 11:18
--- NOTE | 2016-09-18 16:59 | CONS ---
Date/Time of Note Date/Time of Note DATE: 09/18/16 TIME: 16:58 Assessment/Plan Assessment/Plan Chief Complaint/Hosp Course 1. Right diabetic foot ulcer with right foot SSTI 2. 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 hx of esbl e.coli infection 01/2015 4. PVD s/p catheter placement from R PROMOTIONAL ADVERTISING ASSISTANT into L DP artery, thrombectomy of L DP artery, revasc of L anterior tibial artery on 02/15/2015 5. IDDM Hgb A1c 7% 6. HTN associated with DM 7. ACD Recommendations: - Continue vanco (09/15/16-) and Imipenem (09/16/16-) - Consider MRI - F/u final right foot wound cx (prelim growing proteus, staph, and enterococcus ) - F/u blood cx 09/16/16 (pending) - F/u procalcitonin 09/16/16 (pending) and ESR (87) - F/u MRSA screen (pending) - Continue probiotic - Consider dc colace - Tight blood sugar control - Above d/w Dr. Elias Problems: Consultation Date/Type/Reason Admit Date/Time Sep 15, 2016 at 02:30 Initial Consult Date 09/16/16 Type of Consultation: Infectious Disease Referring Provider: GASTON CELAYA MD Exam/Review of Systems Vital Signs Vitals Vital Signs Date Time Temp Pulse Resp B/P Pulse Ox O2 Delivery O2 Flow Rate FiO2 09/18/16 07:15 98.6 73 16 104/54 97 09/16/16 19:58 Room Air Intake and Output 09/17/16 09/17/16 09/18/16 15:00 23:00 07:00 Intake Total 250 ml 1340 ml 710 ml Output Total 1250 ml 600 ml Balance 250 ml 90 ml 110 ml Exam Constitutional: alert, oriented, well developed Head: atraumatic, normocephalic Neck: supple Respiratory: clear to auscultation, normal air movement Cardiovascular: regular rate and rhythm, No edema Gastrointestinal: non-tender, soft Extremities: other (Right 4th toe with bluish discoloration; small open sore in between 4th and 5th digits noted with mild erythema.) Neurological: nl mental status, nl speech Skin: other (Wound Vac to abdomen and Left hip are intact.) Results Result Diagram: 09/17/16 0555 09/17/16 0555 Results 24 hrs Laboratory Tests Test 09/17/16 20:45 09/17/16 21:00 09/18/16 02:05 09/18/16 02:28 Bedside Glucose 198 61 L 95 Vancomycin Level Trough 11.5 Test 09/18/16 02:48 09/18/16 07:55 09/18/16 11:42 Bedside Glucose 118 75 160 Medications Medications Current Medications Acetaminophen (Tylenol Tab) 650 mg Q6H PRN PO PAIN AND OR ELEVATED TEMP Last administered on 09/15/16 19:55; Admin Dose 650 MG; Start 09/15/16 at 04:30 Morphine Sulfate (morphine) 3 mg Q4H PRN IV PAIN LEVEL 7-10 Last administered on 09/18/16 00:55; Admin Dose 3 MG; Start 09/15/16 at 04:30 Ondansetron HCl (Zofran Inj) 4 mg Q6H PRN IV NAUSEA AND/OR VOMITING; Start at 04:30 Aspirin (Aspirin) 81 mg DAILY PO Last administered on 09/18/16 08:43; Admin Dose 81 MG; Start 09/15/16 at 09:00 Clopidogrel Bisulfate (plaVIX) 75 mg DAILY PO Last administered on 09/18/16 08 :43; Admin Dose 75 MG; Start 09/15/16 at 09:00 Gemfibrozil (Lopid) 600 mg BID PO Last administered on 09/18/16 08:47; Admin Dose 600 MG; Start 09/15/16 at 09:00 Lisinopril (Zestril) 10 mg DAILY PO Last administered on 09/18/16 08:43; Admin Dose 10 MG; Start 09/15/16 at 09:00 Diagnostic Test (Pha) (Accucheck) 1 ea 02 XX Last administered on 09/18/16 02: 04; Admin Dose 1 EA; Start 09/16/16 at 02:00 Miscellaneous Information 1 ea NOTE XX ; Start 09/15/16 at 05:30 Glucose (Glutose) 15 gm Q15M PRN PO DECREASED GLUCOSE; Start 09/15/16 at 05:30 Glucose (Glutose) 22.5 gm Q15M PRN PO DECREASED GLUCOSE; Start 09/15/16 at 05: 30 Dextrose (D50w Syringe) 25 ml Q15M PRN IV DECREASED GLUCOSE; Start 09/15/16 at 05:30 Dextrose (D50w Syringe) 50 ml Q15M PRN IV DECREASED GLUCOSE; Start 09/15/16 at 05:30 Glucagon (Glucagen) 1 mg Q15M PRN IM DECREASED GLUCOSE; Start 09/15/16 at 05:30 Glucose (Glutose) 15 gm Q15M PRN BUCCAL DECREASED GLUCOSE Last administered on 09/16/16 02:36; Admin Dose 15 GM; Start 09/15/16 at 05:30 Linagliptin (Tradjenta) 5 mg DAILY PO Last administered on 09/18/16 08:44; Admin Dose 5 MG; Start 09/15/16 at 09:00 Docusate Sodium (Colace) 200 mg HS PO Last administered on 09/17/16 20:46; Admin Dose 200 MG; Start 09/15/16 at 21:00 Hydrocortisone (Anusol-Hc Supp) 25 mg BID PRN [place] HEMORROID PAIN/ITCHING; Start 09/15/16 at 12:00 Acetaminophen/ Hydrocodone Bitart ([place] (10/325)) 1 tab Q4H PRN PO PAIN Last administered on 09/17/16 17:03; Admin Dose 1 TAB; Start 09/15/16 at 12:00 Lactobacillus Acidoph/Bulgaricus (Floranex) 1 tab BID PO Last administered on 08:43; Admin Dose 1 TAB; Start 09/15/16 at 21:00 Enoxaparin Sodium (Lovenox) 40 mg DAILY SC Last administered on 09/18/16 08:44 ; Admin Dose 40 MG; Start 09/16/16 at 15:00 Famotidine 20 mg 20 mg DAILY PO Last administered on 09/18/16 08:43; Admin Dose 20 MG; Start 09/16/16 at 15:00 Imipenem/ Cilastatin Sodium 100 ml @ 100 mls/hr Q6 IVPB Last administered on 13:23; Admin Dose 100 MLS/HR; Start 09/16/16 at 18:00 Vancomycin HCl (Vancocin) 250 ml @ 125 mls/hr Q12H IVPB Last administered on t 10:32; Admin Dose 125 MLS/HR; Start 09/17/16 at 22:00 Insulin Glargine (Lantus) 9 unit HS SC ; Start 09/18/16 at 21:00 Miscellaneous Information (*Rx Drug Level Order Reminder*) 1 ONCE ONCE XX ; Start 09/19/16 at 09:00; Stop 09/19/16 at 09:01 APURVA VILLAREAL NP Sep 18, 2016 16:59
--- NOTE | 2016-09-18 17:19 | CONS ---
Date/Time of Note Date/Time of Note DATE: 09/18/16 TIME: 17:12 Assessment/Plan Assessment/Plan Chief Complaint/Hosp Course 1. Right diabetic foot ulcer with right foot SSTI 2. 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 hx of esbl e.coli infection 01/2015 4. PVD s/p catheter placement from R EMERGENCY MEDICINE SPECIALIST into L DP artery, thrombectomy of L DP artery, revasc of L anterior tibial artery on 02/15/2015 5. IDDM Hgb A1c 7% 6. HTN associated with DM 7. ACD Recommendations: - Continue vanco (09/15/16-) and de-escalate Imipenem (09/16/16-) to Ceftriaxone; will likely need 7-14 day treatment for SSTI - Consider MRI to r/o OM - F/u final right foot wound cx (prelim growing proteus, CoNS, and enterococcus) - F/u procalcitonin 09/16/16 (pending) and ESR (87) - F/u MRSA screen (negative) - Continue probiotic - Check stool for C diff - Consider dc colace or hold for loose stool - Tight blood sugar control - Above d/w Dr. Elias Problems: Consultation Date/Type/Reason Admit Date/Time Sep 15, 2016 at 02:30 Initial Consult Date 09/16/16 Type of Consultation: Infectious Disease Referring Provider: GASTON CELAYA MD 24 HR Interval Summary Free Text/Dictation Remains afebrile and clinically unchanged per CHEY Brooke. Pt reports she did not have BM for 4 days prior to admission but has had a BM every day while hospitalized and today had loose stools. Denies SOB, abd pain, n/v, dysuria. Exam/Review of Systems Vital Signs Vitals Vital Signs Date Time Temp Pulse Resp B/P Pulse Ox O2 Delivery O2 Flow Rate FiO2 09/18/16 07:15 98.6 73 16 104/54 97 09/16/16 19:58 Room Air Intake and Output 09/17/16 09/17/16 09/18/16 15:00 23:00 07:00 Intake Total 250 ml 1340 ml 710 ml Output Total 1250 ml 600 ml Balance 250 ml 90 ml 110 ml Exam Constitutional: alert, oriented, well developed Head: atraumatic, normocephalic Neck: supple Respiratory: clear to auscultation, normal air movement Cardiovascular: regular rate and rhythm, No edema Gastrointestinal: non-tender, soft Extremities: other (Right 4th toe with bluish discoloration; small open sore in between 4th and 5th digits noted with mild erythema.) Neurological: nl mental status, nl speech Skin: other (Wound Vac to abdomen and Left hip are intact.) Results MICROBIOLOGY: Right foot wound cx 09/15/16: WOUND CULTURE Preliminary Organism 1 PROTEUS MIRABILIS QUANTITY 1+ Organism 2 COAGULASE NEGATIVE STAPH QUANTITY 2+ Organism 3 ENTEROCOCCUS SPECIES QUANTITY ISOLATED FROM BROTH ONLY P. MIRAB COAG NEG M.I.C. RX M.I.C. RX --------- --- --------- --- AMPICILLIN <=2 S CEFAZOLIN R CEFOTAXIME S CIPROFLOXACIN >=4 R >=8 R CLINDAMYCIN >=8 R DOXYCYCLINE S ERYTHROMYCIN >=8 R GENTAMICIN <=1 S LEVOFLOXACIN >=8 R >=8 R OXACILLIN >=4 R PENICILLIN-G >=0.5 R RIFAMPIN <=0.5 S VANCOMYCIN 1 S TOBRAMYCIN <=1 S TRIMETHOPRIM/SULFAMETHOXAZOLE <=20 S 160 R Result Diagram: 09/17/16 0555 09/17/16 0555 Results 24 hrs Laboratory Tests Test 09/17/16 20:45 09/17/16 21:00 09/18/16 02:05 09/18/16 02:28 Bedside Glucose 198 61 L 95 Vancomycin Level Trough 11.5 Test 09/18/16 02:48 09/18/16 07:55 09/18/16 11:42 Bedside Glucose 118 75 160 Medications Medications Current Medications Acetaminophen (Tylenol Tab) 650 mg Q6H PRN PO PAIN AND OR ELEVATED TEMP Last administered on 09/15/16 19:55; Admin Dose 650 MG; Start 09/15/16 at 04:30 Morphine Sulfate (morphine) 3 mg Q4H PRN IV PAIN LEVEL 7-10 Last administered on 09/18/16 00:55; Admin Dose 3 MG; Start 09/15/16 at 04:30 Ondansetron HCl (Zofran Inj) 4 mg Q6H PRN IV NAUSEA AND/OR VOMITING; Start at 04:30 Aspirin (Aspirin) 81 mg DAILY PO Last administered on 09/18/16 08:43; Admin Dose 81 MG; Start 09/15/16 at 09:00 Clopidogrel Bisulfate (plaVIX) 75 mg DAILY PO Last administered on 09/18/16 08 :43; Admin Dose 75 MG; Start 09/15/16 at 09:00 Gemfibrozil (Lopid) 600 mg BID PO Last administered on 09/18/16 08:47; Admin Dose 600 MG; Start 09/15/16 at 09:00 Lisinopril (Zestril) 10 mg DAILY PO Last administered on 09/18/16 08:43; Admin Dose 10 MG; Start 09/15/16 at 09:00 Diagnostic Test (Pha) (Accucheck) 1 ea 02 XX Last administered on 09/18/16 02: 04; Admin Dose 1 EA; Start 09/16/16 at 02:00 Miscellaneous Information 1 ea NOTE XX ; Start 09/15/16 at 05:30 Glucose (Glutose) 15 gm Q15M PRN PO DECREASED GLUCOSE; Start 09/15/16 at 05:30 Glucose (Glutose) 22.5 gm Q15M PRN PO DECREASED GLUCOSE; Start 09/15/16 at 05: 30 Dextrose (D50w Syringe) 25 ml Q15M PRN IV DECREASED GLUCOSE; Start 09/15/16 at 05:30 Dextrose (D50w Syringe) 50 ml Q15M PRN IV DECREASED GLUCOSE; Start 09/15/16 at 05:30 Glucagon (Glucagen) 1 mg Q15M PRN IM DECREASED GLUCOSE; Start 09/15/16 at 05:30 Glucose (Glutose) 15 gm Q15M PRN BUCCAL DECREASED GLUCOSE Last administered on 09/16/16 02:36; Admin Dose 15 GM; Start 09/15/16 at 05:30 Linagliptin (Tradjenta) 5 mg DAILY PO Last administered on 09/18/16 08:44; Admin Dose 5 MG; Start 09/15/16 at 09:00 Docusate Sodium (Colace) 200 mg HS PO Last administered on 09/17/16 20:46; Admin Dose 200 MG; Start 09/15/16 at 21:00 Hydrocortisone (Anusol-Hc Supp) 25 mg BID PRN [place] HEMORROID PAIN/ITCHING; Start 09/15/16 at 12:00 Acetaminophen/ Hydrocodone Bitart ([place] (10/325)) 1 tab Q4H PRN PO PAIN Last administered on 09/17/16 17:03; Admin Dose 1 TAB; Start 09/15/16 at 12:00 Lactobacillus Acidoph/Bulgaricus (Floranex) 1 tab BID PO Last administered on 08:43; Admin Dose 1 TAB; Start 09/15/16 at 21:00 Enoxaparin Sodium (Lovenox) 40 mg DAILY SC Last administered on 09/18/16 08:44 ; Admin Dose 40 MG; Start 09/16/16 at 15:00 Famotidine 20 mg 20 mg DAILY PO Last administered on 09/18/16 08:43; Admin Dose 20 MG; Start 09/16/16 at 15:00 Imipenem/ Cilastatin Sodium 100 ml @ 100 mls/hr Q6 IVPB Last administered on 13:23; Admin Dose 100 MLS/HR; Start 09/16/16 at 18:00 Vancomycin HCl (Vancocin) 250 ml @ 125 mls/hr Q12H IVPB Last administered on 10:32; Admin Dose 125 MLS/HR; Start 09/17/16 at 22:00 Insulin Glargine (Lantus) 9 unit HS SC ; Start 09/18/16 at 21:00 Miscellaneous Information (*Rx Drug Level Order Reminder*) 1 ONCE ONCE XX ; Start 09/19/16 at 09:00; Stop 09/19/16 at 09:01 Procedures Procedures Right foot x-ray 09/17/16: 1. No definite evidence for osteomyelitis although if there is a skin ulcer or high suspicion for osteomyelitis, a follow-up MRI may be obtained for additional evaluation. 2. 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 3. Plantar calcaneal heel spur and Achilles enthesopathy. 4. Atherosclerotic vascular disease. RLE arterial study 09/16/16: No hemodynamically significant stenosis or occlusion. Diffusely diminished wave forms involving the right lower extremity suggest diffuse atherosclerotic disease. CXR 09/15/16: Stable chest x-ray with no evidence of active cardiopulmonary disease. APURVA VILLAREAL NP Sep 18, 2016 17:19
[2016-09-18 20:00] VITALS: BP 156/72; RESP 19
[2016-09-18] MEDS: CEFTRIAXONE 1 GM/50 ML (PMX) 50 ML IVPB SCH (20:45)
[2016-09-18] MEDS: DOCUSATE SODIUM 100 MG CAP PO SCH (20:45)
[2016-09-18] MEDS ORDERED: INSULIN GLARGINE [LANtus] 3 ML PEN SC SCH (21:00)
[2016-09-18] MEDS: HYDROCODONE/APAP (10/325) TAB PO PRN (23:22)
[2016-09-19] MEDS: ACCUCHECK XX SCH ×5 (02:00→20:50)
[2016-09-19 06:55] LABS: CREATININE 0.46 mg/dl (0.44-1.00)
[2016-09-19 07:15] VITALS: BP 119/65; RESP 16
[2016-09-19] MEDS: INSULIN ASPART [NOVOLOG] 3 ML PEN SC SCH ×4 (08:00→20:49)
[2016-09-19] MEDS: LACTOBACILLUS CHEW TAB PO SCH ×2 (08:15→20:38)
[2016-09-19] MEDS: GLUCOSE GEL 15 GRAM TUBE BUCCAL PRN (08:15)
[2016-09-19] MEDS: CLOPIDOGREL 75 MG TAB PO SCH (08:15)
[2016-09-19] MEDS: LINAGLIPTIN 5 MG TABLET PO SCH (08:15)
[2016-09-19] MEDS: FAMOTIDINE 20 MG TAB PO SCH (08:15)
[2016-09-19] MEDS: LISINOPRIL 10 MG TAB PO SCH (08:16)
[2016-09-19] MEDS: ASPIRIN 81 MG TAB PO SCH (08:22)
[2016-09-19] MEDS: GEMFIBROZIL 600 MG TAB PO SCH ×2 (08:22→20:38)
[2016-09-19] MEDS: ENOXAPARIN 40 MG/0.4 ML SYG SC SCH (08:23)
--- NOTE | 2016-09-19 10:24 | PN ---
Date/Time of Note Date/Time of Note DATE: 09/19/16 TIME: 10:21 Assessment/Plan VTE Prophylaxis VTE Prophylaxis Intervention: LMWH Lines/C[facility]ters [facility] [place] [facility] Urinary Cath still in place: No Assessment/Plan Chief Complaint/Hosp Course Subjective: 09/15-pain improved. No fever toxicity. 09/16 very anxious. Mild pain. No fever. 09/17 no events. No fever toxicity. Tolerating antibiotics. 217: No events. Updated son, who stated that the pt has been more ambulatory lately/ doing stairs at home w PT. Stable, less pain erythema. 09/19: Diarrhea noted. Now positive for C diff. No fever toxicity. Wound looks more deeply discolored. Objective: vss PE No pallor Reg, no m/r/g ctab Bs+ nt nd, no M/R/G LLE: hip disarticulation status w drain. RLE: More deeply noted erythema third to fifth toes. open sore btwn 4th & 5th. A/P 1. Rt lower ext- SSTI. Stable, cont atb's. PICC/IVs vs po's. Disposition snf? 2. Lt hip disarticulation status; cont drain care 3. Chr diabetes over 20 yrs 4. Diabetic neuropathy 5. Chr PAD; ho lt angioplasty. Rt SFA dz? Cont asa/ Plavix. 6. Anemia 7. Deconditioning; snf if nonweightbearing status required for healing of wound. 8. Metabolic syndrome 9. Constipation hemorrhoids 10. Anxiety/adjustment disorder 11. C diff colitis, stable start vanc. Problems: Exam/Review of Systems Vital Signs Vitals Vital Signs Date Time Temp Pulse Resp B/P Pulse Ox O2 Delivery O2 Flow Rate FiO2 09/19/16 07:15 98.2 73 16 119/65 98 09/16/16 19:58 Room Air Intake and Output 09/18/16 09/18/16 09/19/16 15:00 23:00 07:00 Intake Total 350 ml 650 ml 370 ml Balance 350 ml 650 ml 370 ml Results Result Diagram: 09/17/16 0555 09/19/16 0435 Results 24 hrs Laboratory Tests Test 09/18/16 11:42 09/18/16 17:03 09/18/16 20:42 09/19/16 04:35 Bedside Glucose 160 146 156 Blood Urea Nitrogen 17 Creatinine 0.46 Test 09/19/16 08:01 09/19/16 09:15 09/19/16 09:53 Bedside Glucose 66 L 167 Vancomycin Level Trough 16.3 Medications Medications Current Medications Acetaminophen (Tylenol Tab) 650 mg Q6H PRN PO PAIN AND OR ELEVATED TEMP Last administered on 09/15/16 19:55; Admin Dose 650 MG; Start 09/15/16 at 04:30 Morphine Sulfate (morphine) 3 mg Q4H PRN IV PAIN LEVEL 7-10 Last administered on 09/18/16 21:48; Admin Dose 3 MG; Start 09/15/16 at 04:30 Ondansetron HCl (Zofran Inj) 4 mg Q6H PRN IV NAUSEA AND/OR VOMITING; Start at 04:30 Aspirin (Aspirin) 81 mg DAILY PO Last administered on 09/19/16 08:22; Admin Dose 81 MG; Start 09/15/16 at 09:00 Clopidogrel Bisulfate (plaVIX) 75 mg DAILY PO Last administered on 09/19/16 08 :15; Admin Dose 75 MG; Start 09/15/16 at 09:00 Gemfibrozil (Lopid) 600 mg BID PO Last administered on 09/19/16 08:22; Admin Dose 600 MG; Start 09/15/16 at 09:00 Lisinopril (Zestril) 10 mg DAILY PO Last administered on 09/19/16 08:16; Admin Dose 10 MG; Start 09/15/16 at 09:00 Diagnostic Test (Pha) (Accucheck) 1 ea 02 XX Last administered on 09/18/16 02: 04; Admin Dose 1 EA; Start 09/16/16 at 02:00 Miscellaneous Information 1 ea NOTE XX ; Start 09/15/16 at 05:30 Glucose (Glutose) 15 gm Q15M PRN PO DECREASED GLUCOSE; Start 09/15/16 at 05:30 Glucose (Glutose) 22.5 gm Q15M PRN PO DECREASED GLUCOSE; Start 09/15/16 at 05: 30 Dextrose (D50w Syringe) 25 ml Q15M PRN IV DECREASED GLUCOSE; Start 09/15/16 at 05:30 Dextrose (D50w Syringe) 50 ml Q15M PRN IV DECREASED GLUCOSE; Start 09/15/16 at 05:30 Glucagon (Glucagen) 1 mg Q15M PRN IM DECREASED GLUCOSE; Start 09/15/16 at 05:30 Glucose (Glutose) 15 gm Q15M PRN BUCCAL DECREASED GLUCOSE Last administered on 09/19/16 08:15; Admin Dose 15 GM; Start 09/15/16 at 05:30 Linagliptin (Tradjenta) 5 mg DAILY PO Last administered on 09/19/16 08:15; Admin Dose 5 MG; Start 09/15/16 at 09:00 Docusate Sodium (Colace) 200 mg HS PO Last administered on 09/18/16 20:45; Admin Dose 200 MG; Start 09/15/16 at 21:00 Hydrocortisone (Anusol-Hc Supp) 25 mg BID PRN [place] HEMORROID PAIN/ITCHING; Start 09/15/16 at 12:00 Acetaminophen/ Hydrocodone Bitart ([place] (10/325)) 1 tab Q4H PRN PO PAIN Last administered on 09/18/16 23:22; Admin Dose 1 TAB; Start 09/15/16 at 12:00 Lactobacillus Acidoph/Bulgaricus (Floranex) 1 tab BID PO Last administered on 08:15; Admin Dose 1 TAB; Start 09/15/16 at 21:00 Enoxaparin Sodium (Lovenox) 40 mg DAILY SC Last administered on 09/19/16 08:23 ; Admin Dose 40 MG; Start 09/16/16 at 15:00 Famotidine 20 mg 20 mg DAILY PO Last administered on 09/19/16 08:15; Admin Dose 20 MG; Start 09/16/16 at 15:00 Vancomycin HCl (Vancocin) 250 ml @ 125 mls/hr Q12H IVPB Last administered on 21:48; Admin Dose 125 MLS/HR; Start 09/17/16 at 22:00 Insulin Glargine 9 unit 9 unit HS SC Last administered on 09/18/16 20:44; Admin Dose 9 UNIT; Start 09/18/16 at 21:00 Ceftriaxone Sodium (Rocephin) 50 ml @ 100 mls/hr Q24H IVPB Last administered on 09/18/16 20:45; Admin Dose 100 MLS/HR; Start 09/18/16 at 20:00 GASTON CELAYA MD Sep 19, 2016 10:24
[2016-09-19] MEDS: VANCOMYCIN 1 GM in NS 250 ML IVPB SCH ×2 (12:31→21:50)
--- NOTE | 2016-09-19 12:53 | CONS ---
Date/Time of Note Date/Time of Note DATE: 09/19/16 TIME: 12:50 Assessment/Plan Assessment/Plan Chief Complaint/Hosp Course assessment/impression 1. Right diabetic foot ulcer with right foot SSTI 2. 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 hx of ESBL E.coli infection 01/2015 4. PVD s/p catheter placement from R CREEL CLEANER into L DP artery, thrombectomy of L DP artery, revasc of L anterior tibial artery on 02/15/2015 5. IDDM Hgb A1c 7% 6. HTN associated with DM 7. ACD 8. C diff colitis recommendations: - Consider MRI to r/o OM - continue PO metronidazole (09/09/2016-) for C diff colitis (09/19/2016-) - Continue IV vancomycin (09/15/16-), ceftriaxone for diabetic foot infection management d/w Dr. Celaya and Pt Problems: Consultation Date/Type/Reason Admit Date/Time Sep 15, 2016 at 02:30 Initial Consult Date 09/16/16 Type of Consultation: Infectious Disease Referring Provider: GASTON CELAYA MD 24 HR Interval Summary Constitutional: no complaints Detailed Summary Eyes: no complaints ENT: no complaints Respiratory: no complaints Cardiovascular: no complaints Gastrointestinal: constipation, other (upset stomach) Genitourinary: no complaints Musculoskeletal: other (no pain unless pressure is applied) Neurologic: other (has sensation of R foot) Exam/Review of Systems Vital Signs Vitals Vital Signs Date Time Temp Pulse Resp B/P Pulse Ox O2 Delivery O2 Flow Rate FiO2 09/19/16 07:15 98.2 73 16 119/65 98 09/16/16 19:58 Room Air Intake and Output 09/18/16 09/18/16 09/19/16 15:00 23:00 07:00 Intake Total 350 ml 650 ml 370 ml Balance 350 ml 650 ml 370 ml Exam Constitutional: alert, oriented, well developed Psych: nl mood/affect, no complaints Head: normocephalic Eyes: nl conjunctiva, nl lids, nl sclera ENMT: nl external ears & nose, nl nasal mucosa & septum Neck: supple Musculoskeletal: other, No swelling Skin: other (erythema of R 3-4 toes), rash or lesions (between R 4-5 toes) Results Result Diagram: 09/17/16 0555 09/19/16 0435 Results 24 hrs Laboratory Tests Test 09/18/16 17:03 09/18/16 20:42 09/19/16 04:35 09/19/16 08:01 Bedside Glucose 146 156 66 L Blood Urea Nitrogen 17 Creatinine 0.46 Test 09/19/16 09:15 09/19/16 09:53 09/19/16 12:01 Vancomycin Level Trough 16.3 Bedside Glucose 167 135 Medications Medications Current Medications Acetaminophen (Tylenol Tab) 650 mg Q6H PRN PO PAIN AND OR ELEVATED TEMP Last administered on 09/15/16 19:55; Admin Dose 650 MG; Start 09/15/16 at 04:30 Morphine Sulfate (morphine) 3 mg Q4H PRN IV PAIN LEVEL 7-10 Last administered on 09/18/16 21:48; Admin Dose 3 MG; Start 09/15/16 at 04:30 Ondansetron HCl (Zofran Inj) 4 mg Q6H PRN IV NAUSEA AND/OR VOMITING; Start at 04:30 Aspirin (Aspirin) 81 mg DAILY PO Last administered on 09/19/16 08:22; Admin Dose 81 MG; Start 09/15/16 at 09:00 Clopidogrel Bisulfate (plaVIX) 75 mg DAILY PO Last administered on 09/19/16 08 :15; Admin Dose 75 MG; Start 09/15/16 at 09:00 Gemfibrozil (Lopid) 600 mg BID PO Last administered on 09/19/16 08:22; Admin Dose 600 MG; Start 09/15/16 at 09:00 Lisinopril (Zestril) 10 mg DAILY PO Last administered on 09/19/16 08:16; Admin Dose 10 MG; Start 09/15/16 at 09:00 Diagnostic Test (Pha) (Accucheck) 1 ea 02 XX Last administered on 09/18/16 02: 04; Admin Dose 1 EA; Start 09/16/16 at 02:00 Miscellaneous Information 1 ea NOTE XX ; Start 09/15/16 at 05:30 Glucose (Glutose) 15 gm Q15M PRN PO DECREASED GLUCOSE; Start 09/15/16 at 05:30 Glucose (Glutose) 22.5 gm Q15M PRN PO DECREASED GLUCOSE; Start 09/15/16 at 05: 30 Dextrose (D50w Syringe) 25 ml Q15M PRN IV DECREASED GLUCOSE; Start 09/15/16 at 05:30 Dextrose (D50w Syringe) 50 ml Q15M PRN IV DECREASED GLUCOSE; Start 09/15/16 at 05:30 Glucagon (Glucagen) 1 mg Q15M PRN IM DECREASED GLUCOSE; Start 09/15/16 at 05:30 Glucose (Glutose) 15 gm Q15M PRN BUCCAL DECREASED GLUCOSE Last administered on 09/19/16 08:15; Admin Dose 15 GM; Start 09/15/16 at 05:30 Linagliptin (Tradjenta) 5 mg DAILY PO Last administered on 09/19/16 08:15; Admin Dose 5 MG; Start 09/15/16 at 09:00 Hydrocortisone (Anusol-Hc Supp) 25 mg BID PRN [place] HEMORROID PAIN/ITCHING; Start 09/15/16 at 12:00 Acetaminophen/ Hydrocodone Bitart ([place] (10/325)) 1 tab Q4H PRN PO PAIN Last administered on 09/18/16 23:22; Admin Dose 1 TAB; Start 09/15/16 at 12:00 Lactobacillus Acidoph/Bulgaricus (Floranex) 1 tab BID PO Last administered on 08:15; Admin Dose 1 TAB; Start 09/15/16 at 21:00 Enoxaparin Sodium (Lovenox) 40 mg DAILY SC Last administered on 09/19/16 08:23 ; Admin Dose 40 MG; Start 09/16/16 at 15:00 Famotidine 20 mg 20 mg DAILY PO Last administered on 09/19/16 08:15; Admin Dose 20 MG; Start 09/16/16 at 15:00 Vancomycin HCl 250 ml @ 125 mls/hr Q12H IVPB Last administered on 09/19/16 12 :31; Admin Dose 125 MLS/HR; Start 09/17/16 at 22:00 Ceftriaxone Sodium (Rocephin) 50 ml @ 100 mls/hr Q24H IVPB Last administered on 09/18/16 20:45; Admin Dose 100 MLS/HR; Start 09/18/16 at 20:00 Insulin Glargine (Lantus) 5 unit HS SC ; Start 09/19/16 at 21:00 Metronidazole (Flagyl) 500 mg Q8 PO ; Start 09/19/16 at 14:00 LAWRENCE ARIZMENDI M.D. Sep 19, 2016 12:53
[2016-09-19] MEDS: metroNIDAZOLE 500 MG TAB PO SCH ×2 (17:32→21:51)
[2016-09-19] MEDS: CEFTRIAXONE 1 GM/50 ML (PMX) 50 ML IVPB SCH (20:38)
[2016-09-19 20:43] VITALS: BP 167/72; RESP 20
[2016-09-19] MEDS: INSULIN GLARGINE [LANtus] 3 ML PEN SC SCH (20:47)
[2016-09-19] MEDS: HYDROCODONE/APAP (10/325) TAB PO PRN (21:53)
--- NOTE | 2016-09-19 22:00 | CONS ---
Date/Time of Note Date/Time of Note DATE: 09/19/16 TIME: 21:59 Assessment/Plan Assessment/Plan Chief Complaint/Hosp Course assessment/impression 1. Right diabetic foot ulcer with right foot SSTI, wound culture grew VRE, CoNS and proteus 2. 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 hx of ESBL E.coli infection 01/2015 4. PVD s/p catheter placement from R BLIND TEACHER into L DP artery, thrombectomy of L DP artery, revasc of L anterior tibial artery on 02/15/2015 5. IDDM Hgb A1c 7% 6. HTN associated with DM 7. ACD 8. C diff colitis recommendations: - Consider MRI to r/o OM - continue PO metronidazole (09/09/2016-) for C diff colitis (09/19/2016-) - Continue ceftriaxone (09/15/2016-), change IV vancomycin to linezolid (2016-) for diabetic foot infection management d/w Dr. Celaya and Pt Problems: Consultation Date/Type/Reason Admit Date/Time Sep 15, 2016 at 02:30 Initial Consult Date 09/16/16 Type of Consultation: Infectious Disease Referring Provider: GASTON CELAYA MD Exam/Review of Systems Vital Signs Vitals Vital Signs Date Time Temp Pulse Resp B/P Pulse Ox O2 Delivery O2 Flow Rate FiO2 09/19/16 20:43 98.0 84 20 167/72 99 09/16/16 19:58 Room Air Intake and Output 09/18/16 09/18/16 09/19/16 15:00 23:00 07:00 Intake Total 350 ml 650 ml 370 ml Balance 350 ml 650 ml 370 ml Results Result Diagram: 09/17/16 0555 09/19/16 0435 Results 24 hrs Laboratory Tests Test 09/19/16 04:35 09/19/16 08:01 09/19/16 09:15 09/19/16 09:53 Blood Urea Nitrogen 17 Creatinine 0.46 Bedside Glucose 66 L 167 Vancomycin Level Trough 16.3 Test 09/19/16 12:01 09/19/16 17:27 09/19/16 20:40 Bedside Glucose 135 146 198 Medications Medications Current Medications Acetaminophen (Tylenol Tab) 650 mg Q6H PRN PO PAIN AND OR ELEVATED TEMP Last administered on 09/15/16 19:55; Admin Dose 650 MG; Start 09/15/16 at 04:30 Morphine Sulfate (morphine) 3 mg Q4H PRN IV PAIN LEVEL 7-10 Last administered on 09/18/16 21:48; Admin Dose 3 MG; Start 09/15/16 at 04:30 Ondansetron HCl (Zofran Inj) 4 mg Q6H PRN IV NAUSEA AND/OR VOMITING; Start at 04:30 Aspirin (Aspirin) 81 mg DAILY PO Last administered on 09/19/16 08:22; Admin Dose 81 MG; Start 09/15/16 at 09:00 Clopidogrel Bisulfate (plaVIX) 75 mg DAILY PO Last administered on 09/19/16 08 :15; Admin Dose 75 MG; Start 09/15/16 at 09:00 Gemfibrozil (Lopid) 600 mg BID PO Last administered on 09/19/16 20:38; Admin Dose 600 MG; Start 09/15/16 at 09:00 Lisinopril (Zestril) 10 mg DAILY PO Last administered on 09/19/16 08:16; Admin Dose 10 MG; Start 09/15/16 at 09:00 Diagnostic Test (Pha) (Accucheck) 1 ea 02 XX Last administered on 09/18/16 02: 04; Admin Dose 1 EA; Start 09/16/16 at 02:00 Miscellaneous Information 1 ea NOTE XX ; Start 09/15/16 at 05:30 Glucose (Glutose) 15 gm Q15M PRN PO DECREASED GLUCOSE; Start 09/15/16 at 05:30 Glucose (Glutose) 22.5 gm Q15M PRN PO DECREASED GLUCOSE; Start 09/15/16 at 05: 30 Dextrose (D50w Syringe) 25 ml Q15M PRN IV DECREASED GLUCOSE; Start 09/15/16 at 05:30 Dextrose (D50w Syringe) 50 ml Q15M PRN IV DECREASED GLUCOSE; Start 09/15/16 at 05:30 Glucagon (Glucagen) 1 mg Q15M PRN IM DECREASED GLUCOSE; Start 09/15/16 at 05:30 Glucose (Glutose) 15 gm Q15M PRN BUCCAL DECREASED GLUCOSE Last administered on 09/19/16 08:15; Admin Dose 15 GM; Start 09/15/16 at 05:30 Linagliptin (Tradjenta) 5 mg DAILY PO Last administered on 09/19/16 08:15; Admin Dose 5 MG; Start 09/15/16 at 09:00 Hydrocortisone (Anusol-Hc Supp) 25 mg BID PRN [place] HEMORROID PAIN/ITCHING; Start 09/15/16 at 12:00 Acetaminophen/ Hydrocodone Bitart ([place] (10/325)) 1 tab Q4H PRN PO PAIN Last administered on 09/19/16 21:53; Admin Dose 1 TAB; Start 09/15/16 at 12:00 Lactobacillus Acidoph/Bulgaricus (Floranex) 1 tab BID PO Last administered on 20:38; Admin Dose 1 TAB; Start 09/15/16 at 21:00 Enoxaparin Sodium (Lovenox) 40 mg DAILY SC Last administered on 09/19/16 08:23 ; Admin Dose 40 MG; Start 09/16/16 at 15:00 Famotidine 20 mg 20 mg DAILY PO Last administered on 09/19/16 08:15; Admin Dose 20 MG; Start 09/16/16 at 15:00 Vancomycin HCl 250 ml @ 125 mls/hr Q12H IVPB Last administered on 09/19/16 21 :50; Admin Dose 125 MLS/HR; Start 09/17/16 at 22:00 Ceftriaxone Sodium (Rocephin) 50 ml @ 100 mls/hr Q24H IVPB Last administered on 09/19/16 20:38; Admin Dose 100 MLS/HR; Start 09/18/16 at 20:00 Insulin Glargine (Lantus) 5 unit HS SC Last administered on 09/19/16 20:47; Admin Dose 5 UNIT; Start 09/19/16 at 21:00 Metronidazole (Flagyl) 500 mg Q8 PO Last administered on 09/19/16 21:51; Admin Dose 500 MG; Start 09/19/16 at 14:00 LAWRENCE ARIZMENDI M.D. Sep 19, 2016 22:00
[2016-09-19 23:00] VITALS: BP 154/67; PULSE 74
--- NOTE | 2016-09-19 23:51 | PN ---
Date/Time of Note Date/Time of Note DATE: 09/19/16 TIME: 23:51 Assessment/Plan Lines/Catheters IV Catheter Type (from Nrsg): Saline Lock Vee in Place (from Nrsg): No Assessment/Plan Problems: (1) Adjustment disorder with depressed mood Status: Acute (2) Diabetes, polyneuropathy (3) Peripheral vascular disease (4) Cellulitis of right foot (5) Open wound of right foot (6) History of above knee amputation Assessment/Plan Surgical management at this point. Patient has been seen by Dr. Finley, vascular surgery, and is under care for that as well. At risk for worsening infection and limb loss. Subjective 24 Hr Interval Summary Patient was seen at bedside. Reports feeling much better than last visit. Reports she is getting antibiotics and she denies overnight adverse events. Denies fever chills nausea or vomiting. Denies chest pain and shortness of breath. Constitutional: no complaints Pain Control: well controlled Exam/Review of Systems Vital Signs Vitals Vital Signs Date Time Temp Pulse Resp B/P Pulse Ox O2 Delivery O2 Flow Rate FiO2 09/21/16 08:00 98.0 78 18 120/56 96 Room Air Intake and Output 09/20/16 09/20/16 09/21/16 15:00 23:00 07:00 Intake Total 730 ml 500 ml Output Total 0 ml Balance 730 ml 500 ml Exam Free Text/Dictation Palpable pulses noted. No open wound noted on the left foot. No other changes noted on examination. Labs reviewed. There is significant decrease in erythema of the right foot. There is no edema of the right foot noted and nontender to palpation. Results Result Diagram: 09/21/16 0435 09/21/16 0435 MARIANA LING DPM Sep 19, 2016 23:51
[2016-09-20] MEDS: morphine 4 MG/ML VIAL IV PRN ×2 (01:24→20:50)
[2016-09-20] MEDS: ACCUCHECK XX SCH ×5 (02:06→21:00)
[2016-09-20] MEDS: metroNIDAZOLE 500 MG TAB PO SCH ×3 (06:13→22:18)
[2016-09-20 07:37] LABS: BASOPHILS % 0.6 % (0.0-2.0); EOSINOPHILS # 0.4 10^3/ul (0.0-0.5); EOSINOPHILS % 4.9 % (0.0-7.0); HEMOGLOBIN 10.8 g/dl (12.0-16.0); LYMPHOCYTES # 1.7 10^3/ul (0.8-2.9); LYMPHOCYTES % 23.7 % (15.0-51.0); MEAN CORPUSCULAR HEMOGLOBIN 30.4 pg (29.0-33.0); MEAN CORPUSCULAR HGB CONC 33.7 g/dl (32.0-37.0); MEAN CORPUSCULAR VOLUME 90.3 fl (82.0-101.0); MEAN PLATELET VOLUME 8.3 fl (7.4-10.4); MONOCYTE # 0.8 10^3/ul (0.3-0.9); MONOCYTES % 11.3 % (0.0-11.0); NEUTROPHIL # 4.3 10^3/ul (1.6-7.5); NEUTROPHILS % 59.5 % (39.0-77.0); PLATELET COUNT 365 10^3/UL (140-440); RED BLOOD COUNT 3.55 10^6/ul (4.20-5.40); RED CELL DISTRIBUTION WIDTH 14.2 % (11.5-14.5); UNCORRECTED WBC 7.2 10^3/ul (4.8-10.8); WHITE BLOOD COUNT 7.2 10^3/ul (4.8-10.8)
[2016-09-20 07:41] LABS: CONDITION 1
[2016-09-20 07:47] LABS: POTASSIUM 3.6 mmol/L (3.5-5.1)
[2016-09-20 07:49] LABS: CREATININE 0.51 mg/dl (0.44-1.00)
[2016-09-20 07:50] LABS: CALCIUM 8.6 mg/dl (8.4-10.2); MAGNESIUM 1.9 mg/dl (1.7-2.5)
[2016-09-20] MEDS: INSULIN ASPART [NOVOLOG] 3 ML PEN SC SCH ×4 (08:00→21:00)
[2016-09-20] MEDS: ZYVOX 600 MG TAB PO SCH ×2 (08:17→20:58)
[2016-09-20] MEDS: ASPIRIN 81 MG TAB PO SCH (08:18)
[2016-09-20] MEDS: LACTOBACILLUS CHEW TAB PO SCH ×2 (08:18→20:58)
[2016-09-20] MEDS: GEMFIBROZIL 600 MG TAB PO SCH ×2 (08:18→20:58)
[2016-09-20] MEDS: FAMOTIDINE 20 MG TAB PO SCH (08:18)
[2016-09-20] MEDS: ENOXAPARIN 40 MG/0.4 ML SYG SC SCH (08:19)
[2016-09-20] MEDS: CLOPIDOGREL 75 MG TAB PO SCH (08:19)
[2016-09-20] MEDS: LISINOPRIL 10 MG TAB PO SCH (08:20)
[2016-09-20] MEDS: LINAGLIPTIN 5 MG TABLET PO SCH (08:20)
[2016-09-20 08:25] VITALS: BP 128/59; RESP 17
[2016-09-20 11:22] VITALS: BP 128/59
[2016-09-20] MEDS: ONDANSETRON 4 MG INJ IV PRN ×2 (13:01→22:18)
--- NOTE | 2016-09-20 13:58 | PN ---
Date/Time of Note Date/Time of Note DATE: 09/20/16 TIME: 13:56 Assessment/Plan VTE Prophylaxis VTE Prophylaxis Intervention: LMWH Lines/Catheters IV C[facility] Type [facility]from [facility] Saline Lock Urinary Cath still in place: No Assessment/Plan Chief Complaint/Hosp Course Subjective: 09/15-pain improved. No fever toxicity. 09/16 very anxious. Mild pain. No fever. 09/17 no events. No fever toxicity. Tolerating antibiotics. 217: No events. Updated son, who stated that the pt has been more ambulatory lately/ doing stairs at home w PT. Stable, less pain erythema. 09/19: Diarrhea noted. Now positive for C diff. No fever toxicity. Wound looks more deeply discolored. 09/20: Wound appears same, deeply discolored. No fever chills. Less diarrhea. Objective: vss PE No pallor Reg, no m/r/g ctab Bs+ nt nd, no M/R/G LLE: hip disarticulation status w drain. RLE: erythema third to fifth toes. open sore btwn 4th & 5th. A/P 1. Rt lower ext- SSTI. Stable, cont atb's. PICC/IVs vs po's. Disposition home with home health and local wound care. Will check with ID regarding antibiotics. vs snf? -Podiatry recommends local wound care. No need for MRI debridement etc. Ok to start activity with postop boot. 2. Lt hip disarticulation status; cont drain care 3. Chr diabetes over 20 yrs 4. Diabetic neuropathy 5. Chr PAD; ho lt angioplasty. Rt SFA dz? Cont asa/ Plavix. 6. Anemia 7. Deconditioning; snf is an option too. 8. Metabolic syndrome 9. Constipation hemorrhoids 10. Anxiety/adjustment disorder 11. C diff colitis, continue vanc. Problems: Exam/Review of Systems Vital Signs Vitals Vital Signs Date Time Temp Pulse Resp B/P Pulse Ox O2 Delivery O2 Flow Rate FiO2 09/20/16 08:25 97.4 75 17 128/59 100 09/16/16 19:58 Room Air Intake and Output 09/19/16 09/19/16 09/20/16 15:00 23:00 07:00 Intake Total 760 ml 650 ml Output Total 0 ml Balance 760 ml 650 ml Results Result Diagram: 09/20/16 0610 09/20/16 0610 Results 24 hrs Laboratory Tests Test 09/19/16 17:27 09/19/16 20:40 09/20/16 01:58 09/20/16 06:10 Bedside Glucose 146 198 114 Anion Gap 16 Basophils # 0.0 Basophils % 0.6 Blood Urea Nitrogen 15 Calcium Level 8.6 Carbon Dioxide Level 26 Chloride Level 104 Creatinine 0.51 Eosinophils # 0.4 Eosinophils % 4.9 Glucose Level 97 Hematocrit 32.0 L Hemoglobin 10.8 L Lymphocytes # 1.7 Lymphocytes % 23.7 Magnesium Level 1.9 Mean Corpuscular Hemoglobin 30.4 Mean Corpuscular Hemoglobin Concent 33.7 Mean Corpuscular Volume 90.3 Mean Platelet Volume 8.3 Monocytes # 0.8 Monocytes % 11.3 H Neutrophils # 4.3 Neutrophils % 59.5 Nucleated Red Blood Cells # 0.0 Nucleated Red Blood Cells % 0.0 Phosphorus Level 4.0 Platelet Count 365 Potassium Level 3.6 Red Blood Count 3.55 L Red Cell Distribution Width 14.2 Sodium Level 142 White Blood Count 7.2 Test 09/20/16 08:07 09/20/16 11:53 Bedside Glucose 88 122 Medications Medications Current Medications Acetaminophen (Tylenol Tab) 650 mg Q6H PRN PO PAIN AND OR ELEVATED TEMP Last administered on 09/15/16 19:55; Admin Dose 650 MG; Start 09/15/16 at 04:30 Morphine Sulfate (morphine) 3 mg Q4H PRN IV PAIN LEVEL 7-10 Last administered on 09/20/16 01:24; Admin Dose 3 MG; Start 09/15/16 at 04:30 Ondansetron HCl (Zofran Inj) 4 mg Q6H PRN IV NAUSEA AND/OR VOMITING Last administered on 09/20/16 13:01; Admin Dose 4 MG; Start 09/15/16 at 04:30 Aspirin (Aspirin) 81 mg DAILY PO Last administered on 09/20/16 08:18; Admin Dose 81 MG; Start 09/15/16 at 09:00 Clopidogrel Bisulfate (plaVIX) 75 mg DAILY PO Last administered on 09/20/16 08 :19; Admin Dose 75 MG; Start 09/15/16 at 09:00 Gemfibrozil (Lopid) 600 mg BID PO Last administered on 09/20/16 08:18; Admin Dose 600 MG; Start 09/15/16 at 09:00 Lisinopril (Zestril) 10 mg DAILY PO Last administered on 09/20/16 08:20; Admin Dose 10 MG; Start 09/15/16 at 09:00 Diagnostic Test (Pha) (Accucheck) 1 ea 02 XX Last administered on 09/20/16 02: 06; Admin Dose 1 EA; Start 09/16/16 at 02:00 Miscellaneous Information 1 ea NOTE XX ; Start 09/15/16 at 05:30 Glucose (Glutose) 15 gm Q15M PRN PO DECREASED GLUCOSE; Start 09/15/16 at 05:30 Glucose (Glutose) 22.5 gm Q15M PRN PO DECREASED GLUCOSE; Start 09/15/16 at 05: 30 Dextrose (D50w Syringe) 25 ml Q15M PRN IV DECREASED GLUCOSE; Start 09/15/16 at 05:30 Dextrose (D50w Syringe) 50 ml Q15M PRN IV DECREASED GLUCOSE; Start 09/15/16 at 05:30 Glucagon (Glucagen) 1 mg Q15M PRN IM DECREASED GLUCOSE; Start 09/15/16 at 05:30 Glucose (Glutose) 15 gm Q15M PRN BUCCAL DECREASED GLUCOSE Last administered on 09/19/16 08:15; Admin Dose 15 GM; Start 09/15/16 at 05:30 Linagliptin (Tradjenta) 5 mg DAILY PO Last administered on 09/20/16 08:20; Admin Dose 5 MG; Start 09/15/16 at 09:00 Hydrocortisone (Anusol-Hc Supp) 25 mg BID PRN [place] HEMORROID PAIN/ITCHING; Start 09/15/16 at 12:00 Acetaminophen/ Hydrocodone Bitart ([place] (10/325)) 1 tab Q4H PRN PO PAIN Last administered on 09/19/16 21:53; Admin Dose 1 TAB; Start 09/15/16 at 12:00 Lactobacillus Acidoph/Bulgaricus (Floranex) 1 tab BID PO Last administered on 08:18; Admin Dose 1 TAB; Start 09/15/16 at 21:00 Enoxaparin Sodium (Lovenox) 40 mg DAILY SC Last administered on 09/20/16 08:19 ; Admin Dose 40 MG; Start 09/16/16 at 15:00 Famotidine 20 mg 20 mg DAILY PO Last administered on 09/20/16 08:18; Admin Dose 20 MG; Start 09/16/16 at 15:00 Ceftriaxone Sodium (Rocephin) 50 ml @ 100 mls/hr Q24H IVPB Last administered on 09/19/16 20:38; Admin Dose 100 MLS/HR; Start 09/18/16 at 20:00 Insulin Glargine (Lantus) 5 unit HS SC Last administered on 09/19/16 20:47; Admin Dose 5 UNIT; Start 09/19/16 at 21:00 Metronidazole (Flagyl) 500 mg Q8 PO Last administered on 09/20/16 13:01; Admin Dose 500 MG; Start 09/19/16 at 14:00 Linezolid (Zyvox) 600 mg BID PO Last administered on 09/20/16 08:17; Admin Dose 600 MG; Start 09/20/16 at 09:00 GASTON CELAYA MD Sep 20, 2016 13:58
--- NOTE | 2016-09-20 15:59 | CONS ---
GRACEBRENT STRICKLAND 09/20/16 1559: Date/Time of Note Date/Time of Note DATE: 09/20/16 TIME: 15:59 Assessment/Plan Assessment/Plan Additional Assessment/Plan 1. Right diabetic foot ulcer with right foot SSTI, wound culture grew VRE, CoNS and proteus 2. 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 hx of ESBL E.coli infection 01/2015 4. 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 IDDM Hgb A1c 7% 6. HTN associated with DM 7. ACD 8. C diff colitis recommendations: - Consider MRI to r/o OM - continue PO metronidazole (09/09/2016-) for C diff colitis - Continue ceftriaxone (09/15/2016-), change IV vancomycin to linezolid (2016-) for diabetic foot infection d/w Dr Ramirez Consultation Date/Type/Reason Admit Date/Time Sep 15, 2016 at 02:30 Initial Consult Date 09/16/16 Type of Consultation: Infectious Disease Referring Provider: GASTON CELAYA MD 24 HR Interval Summary Free Text/Dictation Alert, NAD. Denies, chills, fever, sweats, n/v/d, abd pain, foot pain .VAC in place Constitutional: improved, no complaints Exam/Review of Systems Vital Signs Vitals Vital Signs Date Time Temp Pulse Resp B/P Pulse Ox O2 Delivery O2 Flow Rate FiO2 09/20/16 08:25 97.4 75 17 128/59 100 09/16/16 19:58 Room Air Intake and Output 09/19/16 09/19/16 09/20/16 15:00 23:00 07:00 Intake Total 760 ml 650 ml Output Total 0 ml Balance 760 ml 650 ml Exam Constitutional: alert, oriented, well developed Psych: no complaints Head: atraumatic, normocephalic Eyes: EOMI, nl conjunctiva ENMT: nl external ears & nose Neck: non-tender, supple Respiratory: clear to auscultation, normal air movement Cardiovascular: nl pulses, regular rate and rhythm Gastrointestinal: bowel sounds, non-tender, soft Extremities: other (LLE AKA) Neurological: nl mental status Results Result Diagram: 09/20/16 0610 09/20/16 0610 Results 24 hrs Laboratory Tests Test 09/19/16 17:27 09/19/16 20:40 09/20/16 01:58 09/20/16 06:10 Bedside Glucose 146 198 114 Anion Gap 16 Basophils # 0.0 Basophils % 0.6 Blood Urea Nitrogen 15 Calcium Level 8.6 Carbon Dioxide Level 26 Chloride Level 104 Creatinine 0.51 Eosinophils # 0.4 Eosinophils % 4.9 Glucose Level 97 Hematocrit 32.0 L Hemoglobin 10.8 L Lymphocytes # 1.7 Lymphocytes % 23.7 Magnesium Level 1.9 Mean Corpuscular Hemoglobin 30.4 Mean Corpuscular Hemoglobin Concent 33.7 Mean Corpuscular Volume 90.3 Mean Platelet Volume 8.3 Monocytes # 0.8 Monocytes % 11.3 H Neutrophils # 4.3 Neutrophils % 59.5 Nucleated Red Blood Cells # 0.0 Nucleated Red Blood Cells % 0.0 Phosphorus Level 4.0 Platelet Count 365 Potassium Level 3.6 Red Blood Count 3.55 L Red Cell Distribution Width 14.2 Sodium Level 142 White Blood Count 7.2 Test 09/20/16 08:07 09/20/16 11:53 Bedside Glucose 88 122 Medications Medications Current Medications Acetaminophen (Tylenol Tab) 650 mg Q6H PRN PO PAIN AND OR ELEVATED TEMP Last administered on 09/15/16 19:55; Admin Dose 650 MG; Start 09/15/16 at 04:30 Morphine Sulfate (morphine) 3 mg Q4H PRN IV PAIN LEVEL 7-10 Last administered on 09/20/16 01:24; Admin Dose 3 MG; Start 09/15/16 at 04:30 Ondansetron HCl (Zofran Inj) 4 mg Q6H PRN IV NAUSEA AND/OR VOMITING Last administered on 09/20/16 13:01; Admin Dose 4 MG; Start 09/15/16 at 04:30 Aspirin (Aspirin) 81 mg DAILY PO Last administered on 09/20/16 08:18; Admin Dose 81 MG; Start 09/15/16 at 09:00 Clopidogrel Bisulfate (plaVIX) 75 mg DAILY PO Last administered on 09/20/16 08 :19; Admin Dose 75 MG; Start 09/15/16 at 09:00 Gemfibrozil (Lopid) 600 mg BID PO Last administered on 09/20/16 08:18; Admin Dose 600 MG; Start 09/15/16 at 09:00 Lisinopril (Zestril) 10 mg DAILY PO Last administered on 09/20/16 08:20; Admin Dose 10 MG; Start 09/15/16 at 09:00 Diagnostic Test (Pha) (Accucheck) 1 ea 02 XX Last administered on 09/20/16 02: 06; Admin Dose 1 EA; Start 09/16/16 at 02:00 Miscellaneous Information 1 ea NOTE XX ; Start 09/15/16 at 05:30 Glucose (Glutose) 15 gm Q15M PRN PO DECREASED GLUCOSE; Start 09/15/16 at 05:30 Glucose (Glutose) 22.5 gm Q15M PRN PO DECREASED GLUCOSE; Start 09/15/16 at 05: 30 Dextrose (D50w Syringe) 25 ml Q15M PRN IV DECREASED GLUCOSE; Start 09/15/16 at 05:30 Dextrose (D50w Syringe) 50 ml Q15M PRN IV DECREASED GLUCOSE; Start 09/15/16 at 05:30 Glucagon (Glucagen) 1 mg Q15M PRN IM DECREASED GLUCOSE; Start 09/15/16 at 05:30 Glucose (Glutose) 15 gm Q15M PRN BUCCAL DECREASED GLUCOSE Last administered on 09/19/16 08:15; Admin Dose 15 GM; Start 09/15/16 at 05:30 Linagliptin (Tradjenta) 5 mg DAILY PO Last administered on 09/20/16 08:20; Admin Dose 5 MG; Start 09/15/16 at 09:00 Hydrocortisone (Anusol-Hc Supp) 25 mg BID PRN [place] HEMORROID PAIN/ITCHING; Start 09/15/16 at 12:00 Acetaminophen/ Hydrocodone Bitart ([place] (10/325)) 1 tab Q4H PRN PO PAIN Last administered on 09/19/16 21:53; Admin Dose 1 TAB; Start 09/15/16 at 12:00 Lactobacillus Acidoph/Bulgaricus (Floranex) 1 tab BID PO Last administered on 08:18; Admin Dose 1 TAB; Start 09/15/16 at 21:00 Enoxaparin Sodium (Lovenox) 40 mg DAILY SC Last administered on 09/20/16 08:19 ; Admin Dose 40 MG; Start 09/16/16 at 15:00 Famotidine 20 mg 20 mg DAILY PO Last administered on 09/20/16 08:18; Admin Dose 20 MG; Start 09/16/16 at 15:00 Ceftriaxone Sodium (Rocephin) 50 ml @ 100 mls/hr Q24H IVPB Last administered on 09/19/16 20:38; Admin Dose 100 MLS/HR; Start 09/18/16 at 20:00 Insulin Glargine (Lantus) 5 unit HS SC Last administered on 09/19/16 20:47; Admin Dose 5 UNIT; Start 09/19/16 at 21:00 Metronidazole (Flagyl) 500 mg Q8 PO Last administered on 09/20/16 13:01; Admin Dose 500 MG; Start 09/19/16 at 14:00 Linezolid (Zyvox) 600 mg BID PO Last administered on 09/20/16 08:17; Admin Dose 600 MG; Start 09/20/16 at 09:00 LAWRENCE RAMIREZ M.D. 09/21/16 0233: Assessment/Plan Assessment/Plan Additional Assessment/Plan James attestation: I discussed the management with STEPHANIE Adams and agree with above. Exam/Review of Systems Results Result Diagram: 09/20/16 0610 09/20/16 0610 BRENT ADAMS Sep 20, 2016 15:59 LAWRENCE RAMIREZ M.D. Sep 21, 2016 02:33
[2016-09-20 16:08] VITALS: BP 125/89; PULSE 75; RESP 17
[2016-09-20 20:13] VITALS: BP 120/75; RESP 16
[2016-09-20] MEDS: CEFTRIAXONE 1 GM/50 ML (PMX) 50 ML IVPB SCH (20:51)
[2016-09-20] MEDS: INSULIN GLARGINE [LANtus] 3 ML PEN SC SCH (21:00)
[2016-09-20] MEDS: HYDROCODONE/APAP (10/325) TAB PO PRN (22:27)
[2016-09-21] MEDS: morphine 4 MG/ML VIAL IV PRN ×2 (00:43→21:58)
[2016-09-21] MEDS: ACCUCHECK XX SCH ×5 (02:00→21:23)
[2016-09-21] MEDS: ONDANSETRON 4 MG INJ IV PRN ×2 (04:43→12:00)
[2016-09-21] MEDS: metroNIDAZOLE 500 MG TAB PO SCH ×3 (05:17→21:58)
[2016-09-21 05:54] LABS: ALBUMIN 3.3 g/dl (3.3-4.9)
[2016-09-21 05:57] LABS: ALBUMIN/GLOBULIN RATIO 1.13; CREATININE 0.56 mg/dl (0.44-1.00); TOTAL PROTEIN 6.2 g/dl (6.1-8.1)
[2016-09-21 05:58] LABS: CALCIUM 8.8 mg/dl (8.4-10.2); MAGNESIUM 1.9 mg/dl (1.7-2.5)
[2016-09-21 06:38] LABS: BASOPHILS % 0.5 % (0.0-2.0); EOSINOPHILS # 0.3 10^3/ul (0.0-0.5); HEMOGLOBIN 10.7 g/dl (12.0-16.0); LYMPHOCYTES # 1.9 10^3/ul (0.8-2.9); LYMPHOCYTES % 26.3 % (15.0-51.0); MEAN CORPUSCULAR HEMOGLOBIN 30.3 pg (29.0-33.0); MEAN CORPUSCULAR HGB CONC 33.6 g/dl (32.0-37.0); MEAN CORPUSCULAR VOLUME 90.3 fl (82.0-101.0); MEAN PLATELET VOLUME 8.3 fl (7.4-10.4); MONOCYTE # 0.8 10^3/ul (0.3-0.9); MONOCYTES % 10.4 % (0.0-11.0); NEUTROPHIL # 4.3 10^3/ul (1.6-7.5); NEUTROPHILS % 58.8 % (39.0-77.0); PLATELET COUNT 405 10^3/UL (140-440); RED BLOOD COUNT 3.54 10^6/ul (4.20-5.40); RED CELL DISTRIBUTION WIDTH 14.2 % (11.5-14.5); UNCORRECTED WBC 7.3 10^3/ul (4.8-10.8); WHITE BLOOD COUNT 7.3 10^3/ul (4.8-10.8)
[2016-09-21 06:43] LABS: CONDITION 1
[2016-09-21 07:18] VITALS: BP 106/58; RESP 16
[2016-09-21] MEDS: INSULIN ASPART [NOVOLOG] 3 ML PEN SC SCH ×4 (07:40→21:18)
[2016-09-21 08:00] VITALS: BP 120/56; PULSE 78; RESP 18
[2016-09-21] MEDS: FAMOTIDINE 20 MG TAB PO SCH (08:46)
[2016-09-21] MEDS: GEMFIBROZIL 600 MG TAB PO SCH ×2 (08:46→20:46)
[2016-09-21] MEDS: ZYVOX 600 MG TAB PO SCH ×2 (08:46→20:46)
[2016-09-21] MEDS: ASPIRIN 81 MG TAB PO SCH (08:46)
[2016-09-21] MEDS: CLOPIDOGREL 75 MG TAB PO SCH (08:46)
[2016-09-21] MEDS: LINAGLIPTIN 5 MG TABLET PO SCH (08:47)
[2016-09-21] MEDS: LISINOPRIL 10 MG TAB PO SCH (08:48)
[2016-09-21] MEDS: LACTOBACILLUS CHEW TAB PO SCH ×2 (08:56→20:46)
[2016-09-21] MEDS: ENOXAPARIN 40 MG/0.4 ML SYG SC SCH (09:00)
--- NOTE | 2016-09-21 11:52 | PN ---
Date/Time of Note Date/Time of Note DATE: 09/21/16 TIME: 11:32 Assessment/Plan VTE Prophylaxis VTE Prophylaxis Intervention: LMWH Lines/Catheters IV C[facility] Type ([facility] Saline Lock Urinary Cath still in place: No Assessment/Plan Assessment/Plan 1. Right diabetic foot ulcer with right foot SSTI, wound culture grew VRE, CoNS and proteus, on zyvox, rocephin 2. DM with neurological and vascular manifestations, on insulins 3. PVD s/p catheter placement from R [employer] into L DP artery, thrombectomy of L DP artery, revasc of L anterior tibial artery on 02/15/2015 4. Peripheral neuropathy 5. Hx amputation of gangrenous L 2nd toe and excisional debridement of partial gangrene of L 3rd toe 02/28/15 6. HTN, controlled 7. C diff colitis, on oral flagyl 8. 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 DVT prophylaxis: lovenox Subjective 24 Hr Interval Summary Free Text/Dictation afebrile, pain is controlled Exam/Review of Systems Vital Signs Vitals Vital Signs Date Time Temp Pulse Resp B/P Pulse Ox O2 Delivery O2 Flow Rate FiO2 09/21/16 07:18 98.4 69 16 106/58 100 09/20/16 16:08 Room Air Intake and Output 09/20/16 09/20/16 09/21/16 15:00 23:00 07:00 Intake Total 730 ml 500 ml Output Total 0 ml Balance 730 ml 500 ml Exam Constitutional: alert, oriented, well developed Psych: nl mood/affect, no complaints Head: atraumatic, normocephalic Eyes: EOMI, PERRL, nl conjunctiva, nl lids ENMT: nl external ears & nose, nl lips & teeth, nl nasal mucosa & septum Neck: non-tender, supple Respiratory: clear to auscultation, normal air movement, No congested cough, No crackles/rales, No diminished breath sounds, No intercostal retraction, No labored breathing, No other, No respirations, No tactile fremitus, No wheezing Cardiovascular: nl pulses, regular rate and rhythm, No S3, No S4, No bruits, No diastolic murmur, No edema, No gallop, No irregular rhythm, No jugular venous distention (JVD), No murmurs/extra sounds, No other, No rub, No systolic murmur Gastrointestinal: nl liver, spleen, non-tender, soft, No ascites, No bowel sounds, No distended, No firm, No hepatomegaly, No mass , No other, No rebound or guarding, No splenomegaly, No surgical scars, No tender Extremities: other (right foot 4th and 5th toe discoloration with swelling. Left lower ectremity amputation with a wound on wound VAC) Neurological: nl mental status, nl speech, nl strength Results Result Diagram: 09/21/165 09/21/165 Results 24 hrs Laboratory Tests Test 09/20/16 11:53 09/20/16 16:59 09/20/16 19:59 09/21/16 04:35 Bedside Glucose 122 157 163 Alanine Aminotransferase (ALT/SGPT) 15 Albumin 3.3 Albumin/Globulin Ratio 1.13 Alkaline Phosphatase 115 Anion Gap 14 Aspartate Amino Transf (AST/SGOT) 14 L Basophils # 0.0 Basophils % 0.5 Blood Urea Nitrogen 15 Calcium Level 8.8 Carbon Dioxide Level 27 Chloride Level 102 Creatinine 0.56 Direct Bilirubin 0.00 Eosinophils # 0.3 Eosinophils % 4.0 Globulin 2.90 Glucose Level 98 Hematocrit 32.0 L Hemoglobin 10.7 L Indirect Bilirubin 0.0 Lymphocytes # 1.9 Lymphocytes % 26.3 Magnesium Level 1.9 Mean Corpuscular Hemoglobin 30.3 Mean Corpuscular Hemoglobin Concent 33.6 Mean Corpuscular Volume 90.3 Mean Platelet Volume 8.3 Monocytes # 0.8 Monocytes % 10.4 Neutrophils # 4.3 Neutrophils % 58.8 Nucleated Red Blood Cells # 0.0 Nucleated Red Blood Cells % 0.0 Phosphorus Level 4.0 Platelet Count 405 Potassium Level 4.0 Red Blood Count 3.54 L Red Cell Distribution Width 14.2 Sodium Level 139 Total Bilirubin 0.0 L Total Protein 6.2 White Blood Count 7.3 Test 09/21/16 07:34 Bedside Glucose 123 Medications Medications Current Medications Acetaminophen (Tylenol Tab) 650 mg Q6H PRN PO PAIN AND OR ELEVATED TEMP Last administered on 09/15/16 19:55; Admin Dose 650 MG; Start 09/15/16 at 04:30 Morphine Sulfate (morphine) 3 mg Q4H PRN IV PAIN LEVEL 7-10 Last administered on 09/21/16 00:43; Admin Dose 3 MG; Start 09/15/16 at 04:30 Ondansetron HCl (Zofran Inj) 4 mg Q6H PRN IV NAUSEA AND/OR VOMITING Last administered on 09/21/16 04:43; Admin Dose 4 MG; Start 09/15/16 at 04:30 Aspirin (Aspirin) 81 mg DAILY PO Last administered on 09/21/16 08:46; Admin Dose 81 MG; Start 09/15/16 at 09:00 Clopidogrel Bisulfate (plaVIX) 75 mg DAILY PO Last administered on 09/21/16 08 :46; Admin Dose 75 MG; Start 09/15/16 at 09:00 Gemfibrozil (Lopid) 600 mg BID PO Last administered on 09/21/16 08:46; Admin Dose 600 MG; Start 09/15/16 at 09:00 Lisinopril (Zestril) 10 mg DAILY PO Last administered on 09/21/16 08:48; Admin Dose 10 MG; Start 09/15/16 at 09:00 Diagnostic Test (Pha) (Accucheck) 1 ea 02 XX Last administered on 09/20/16 02: 06; Admin Dose 1 EA; Start 09/16/16 at 02:00 Miscellaneous Information 1 ea NOTE XX ; Start 09/15/16 at 05:30 Glucose (Glutose) 15 gm Q15M PRN PO DECREASED GLUCOSE; Start 09/15/16 at 05:30 Glucose (Glutose) 22.5 gm Q15M PRN PO DECREASED GLUCOSE; Start 09/15/16 at 05: 30 Dextrose (D50w Syringe) 25 ml Q15M PRN IV DECREASED GLUCOSE; Start 09/15/16 at 05:30 Dextrose (D50w Syringe) 50 ml Q15M PRN IV DECREASED GLUCOSE; Start 09/15/16 at 05:30 Glucagon (Glucagen) 1 mg Q15M PRN IM DECREASED GLUCOSE; Start 09/15/16 at 05:30 Glucose (Glutose) 15 gm Q15M PRN BUCCAL DECREASED GLUCOSE Last administered on 09/19/16 08:15; Admin Dose 15 GM; Start 09/15/16 at 05:30 Linagliptin (Tradjenta) 5 mg DAILY PO Last administered on 09/21/16 08:47; Admin Dose 5 MG; Start 09/15/16 at 09:00 Hydrocortisone (Anusol-Hc Supp) 25 mg BID PRN [place] HEMORROID PAIN/ITCHING; Start 09/15/16 at 12:00 Acetaminophen/ Hydrocodone Bitart ([place] (10/325)) 1 tab Q4H PRN PO PAIN Last administered on 09/20/16 22:27; Admin Dose 1 TAB; Start 09/15/16 at 12:00 Lactobacillus Acidoph/Bulgaricus (Floranex) 1 tab BID PO Last administered on 08:56; Admin Dose 1 TAB; Start 09/15/16 at 21:00 Enoxaparin Sodium (Lovenox) 40 mg DAILY SC Last administered on 09/21/16 09:00 ; Admin Dose 40 MG; Start 09/16/16 at 15:00 Famotidine 20 mg 20 mg DAILY PO Last administered on 09/21/16 08:46; Admin Dose 20 MG; Start 09/16/16 at 15:00 Ceftriaxone Sodium (Rocephin) 50 ml @ 100 mls/hr Q24H IVPB Last administered on 09/20/16 20:51; Admin Dose 100 MLS/HR; Start 09/18/16 at 20:00 Insulin Glargine (Lantus) 5 unit HS SC Last administered on 09/20/16 21:00; Admin Dose 5 UNIT; Start 09/19/16 at 21:00 Metronidazole (Flagyl) 500 mg Q8 PO Last administered on 09/21/16 05:17; Admin Dose 500 MG; Start 09/19/16 at 14:00 Linezolid (Zyvox) 600 mg BID PO Last administered on 09/21/16 08:46; Admin Dose 600 MG; Start 09/20/16 at 09:00 BI VALLEJO MD Sep 21, 2016 11:43
--- NOTE | 2016-09-21 14:33 | CONS ---
APURVA VILLAREAL SIDE LASTER 09/21/16 1433: Date/Time of Note Date/Time of Note DATE: 09/21/16 TIME: 14:21 Assessment/Plan Assessment/Plan Chief Complaint/Hosp Course 1. Right diabetic foot ulcer with right foot SSTI, wound culture grew VRE, CoNS and proteus 2. 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 hx of esbl e.coli infection 01/2015 4. 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 IDDM Hgb A1c 7% 6. HTN associated with DM 7. ACD 8. 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 Ramirez Problems: Consultation Date/Type/Reason Admit Date/Time Sep 15, 2016 at 02:30 Initial Consult Date 09/16/16 Type of Consultation: Infectious Disease Referring Provider: GASTON CELAYA MD 24 HR Interval Summary Free Text/Dictation Pt denies any pain, SOB, dysuria or diarrhea. States has occ nausea depending on food, but no vomiting. States she does not want to go to SNF upon DC as she previously got infection from prior SNF. Exam/Review of Systems Vital Signs Vitals Vital Signs Date Time Temp Pulse Resp B/P Pulse Ox O2 Delivery O2 Flow Rate FiO2 09/21/16 08:00 98.0 78 18 120/56 96 Room Air Intake and Output 09/20/16 09/20/16 09/21/16 15:00 23:00 07:00 Intake Total 730 ml 500 ml Output Total 0 ml Balance 730 ml 500 ml Exam Constitutional: alert, oriented, well developed Head: atraumatic, normocephalic Neck: supple Respiratory: clear to auscultation, normal air movement Cardiovascular: regular rate and rhythm, No edema Gastrointestinal: non-tender, soft Extremities: other (Right 4th toe with bluish discoloration; small open sore in between 4th and 5th digits noted with mild erythema.) Neurological: nl mental status, nl speech Skin: other (Wound Vac to abdomen and Left hip are intact.) Results Result Diagram: 09/21/165 09/21/16 0435 Results 24 hrs Laboratory Tests Test 09/20/16 16:59 09/20/16 19:59 09/21/16 04:35 09/21/16 07:34 Bedside Glucose 157 163 123 Alanine Aminotransferase (ALT/SGPT) 15 Albumin 3.3 Albumin/Globulin Ratio 1.13 Alkaline Phosphatase 115 Anion Gap 14 Aspartate Amino Transf (AST/SGOT) 14 L Basophils # 0.0 Basophils % 0.5 Blood Urea Nitrogen 15 Calcium Level 8.8 Carbon Dioxide Level 27 Chloride Level 102 Creatinine 0.56 Direct Bilirubin 0.00 Eosinophils # 0.3 Eosinophils % 4.0 Globulin 2.90 Glucose Level 98 Hematocrit 32.0 L Hemoglobin 10.7 L Indirect Bilirubin 0.0 Lymphocytes # 1.9 Lymphocytes % 26.3 Magnesium Level 1.9 Mean Corpuscular Hemoglobin 30.3 Mean Corpuscular Hemoglobin Concent 33.6 Mean Corpuscular Volume 90.3 Mean Platelet Volume 8.3 Monocytes # 0.8 Monocytes % 10.4 Neutrophils # 4.3 Neutrophils % 58.8 Nucleated Red Blood Cells # 0.0 Nucleated Red Blood Cells % 0.0 Phosphorus Level 4.0 Platelet Count 405 Potassium Level 4.0 Red Blood Count 3.54 L Red Cell Distribution Width 14.2 Sodium Level 139 Total Bilirubin 0.0 L Total Protein 6.2 White Blood Count 7.3 Test 09/21/16 11:46 Bedside Glucose 134 Medications Medications Current Medications Acetaminophen (Tylenol Tab) 650 mg Q6H PRN PO PAIN AND OR ELEVATED TEMP Last administered on 09/15/16 19:55; Admin Dose 650 MG; Start 09/15/16 at 04:30 Morphine Sulfate (morphine) 3 mg Q4H PRN IV PAIN LEVEL 7-10 Last administered on 09/21/16 00:43; Admin Dose 3 MG; Start 09/15/16 at 04:30 Ondansetron HCl (Zofran Inj) 4 mg Q6H PRN IV NAUSEA AND/OR VOMITING Last administered on 09/21/16 12:00; Admin Dose 4 MG; Start 09/15/16 at 04:30 Aspirin (Aspirin) 81 mg DAILY PO Last administered on 09/21/16 08:46; Admin Dose 81 MG; Start 09/15/16 at 09:00 Clopidogrel Bisulfate (plaVIX) 75 mg DAILY PO Last administered on 09/21/16 08 :46; Admin Dose 75 MG; Start 09/15/16 at 09:00 Gemfibrozil (Lopid) 600 mg BID PO Last administered on 09/21/16 08:46; Admin Dose 600 MG; Start 09/15/16 at 09:00 Lisinopril (Zestril) 10 mg DAILY PO Last administered on 09/21/16 08:48; Admin Dose 10 MG; Start 09/15/16 at 09:00 Diagnostic Test (Pha) (Accucheck) 1 ea 02 XX Last administered on 09/20/16 02: 06; Admin Dose 1 EA; Start 09/16/16 at 02:00 Miscellaneous Information 1 ea NOTE XX ; Start 09/15/16 at 05:30 Glucose (Glutose) 15 gm Q15M PRN PO DECREASED GLUCOSE; Start 09/15/16 at 05:30 Glucose (Glutose) 22.5 gm Q15M PRN PO DECREASED GLUCOSE; Start 09/15/16 at 05: 30 Dextrose (D50w Syringe) 25 ml Q15M PRN IV DECREASED GLUCOSE; Start 09/15/16 at 05:30 Dextrose (D50w Syringe) 50 ml Q15M PRN IV DECREASED GLUCOSE; Start 09/15/16 at 05:30 Glucagon (Glucagen) 1 mg Q15M PRN IM DECREASED GLUCOSE; Start 09/15/16 at 05:30 Glucose (Glutose) 15 gm Q15M PRN BUCCAL DECREASED GLUCOSE Last administered on 09/19/16 08:15; Admin Dose 15 GM; Start 09/15/16 at 05:30 Linagliptin (Tradjenta) 5 mg DAILY PO Last administered on 09/21/16 08:47; Admin Dose 5 MG; Start 09/15/16 at 09:00 Hydrocortisone (Anusol-Hc Supp) 25 mg BID PRN [place] HEMORROID PAIN/ITCHING; Start 09/15/16 at 12:00 Acetaminophen/ Hydrocodone Bitart ([place] (10/325)) 1 tab Q4H PRN PO PAIN Last administered on 09/20/16 22:27; Admin Dose 1 TAB; Start 09/15/16 at 12:00 Lactobacillus Acidoph/Bulgaricus (Floranex) 1 tab BID PO Last administered on 08:56; Admin Dose 1 TAB; Start 09/15/16 at 21:00 Enoxaparin Sodium (Lovenox) 40 mg DAILY SC Last administered on 09/21/16 09:00 ; Admin Dose 40 MG; Start 09/16/16 at 15:00 Famotidine 20 mg 20 mg DAILY PO Last administered on 09/21/16 08:46; Admin Dose 20 MG; Start 09/16/16 at 15:00 Ceftriaxone Sodium (Rocephin) 50 ml @ 100 mls/hr Q24H IVPB Last administered on 09/20/16 20:51; Admin Dose 100 MLS/HR; Start 09/18/16 at 20:00 Insulin Glargine (Lantus) 5 unit HS SC Last administered on 09/20/16 21:00; Admin Dose 5 UNIT; Start 09/19/16 at 21:00 Metronidazole (Flagyl) 500 mg Q8 PO Last administered on 09/21/16 14:10; Admin Dose 500 MG; Start 09/19/16 at 14:00 Linezolid (Zyvox) 600 mg BID PO Last administered on 09/21/16 08:46; Admin Dose 600 MG; Start 09/20/16 at 09:00 LAWRENCE RAMIREZ M.D. 09/28/16 0848: Assessment/Plan Assessment/Plan Additional Assessment/Plan James attestation: I discussed the management with EDNA Villareal and agree with above. Exam/Review of Systems Results Result Diagram: 09/21/1643409/21/16 0435 APURVA VILLAREAL NP Sep 21, 2016 14:33 LAWRENCE RAMIREZ M.D. Sep 28, 2016 08:48
[2016-09-21] MEDS ORDERED: LORAZEPAM 2 MG INJ IV SCH (16:30)
--- NOTE | 2016-09-21 17:29 | PN ---
Date/Time of Note Date/Time of Note DATE: 09/21/16 TIME: 17:25 Assessment/Plan Lines/Catheters IV Catheter Type (from Nrs): Saline Lock Vee in Place (from Nrsg): No Assessment/Plan Problems: (1) Adjustment disorder with depressed mood Status: Acute (2) Diabetes, polyneuropathy (3) Peripheral vascular disease (4) Cellulitis of right foot (5) Open wound of right foot (6) History of above knee amputation Assessment/Plan Patient is apparently ordered to have an MRI of the right foot to rule out osteomyelitis of the right fourth toe. This order was placed in by infectious disease specialist. I will review the MRI as well once available. Patient will be followed in-house. Subjective 24 Hr Interval Summary Patient was seen at bedside. Patient's family is present today. She denies any pain in her right foot. Reports no fever and chills. Denies trauma and reports no overnight adverse events. Constitutional: no complaints Pain Control: well controlled Exam/Review of Systems Vital Signs Vitals Vital Signs Date Time Temp Pulse Resp B/P Pulse Ox O2 Delivery O2 Flow Rate FiO2 09/21/16 08:00 98.0 78 18 120/56 96 Room Air Intake and Output 09/20/16 09/20/16 09/21/16 15:00 23:00 07:00 Intake Total 730 ml 500 ml Output Total 0 ml Balance 730 ml 500 ml Exam Free Text/Dictation Patient is laying supine in bed in no acute distress. There is decrease in erythema of the right foot. Right fourth toe discoloration continues. Right fourth toe is nontender to palpation and examination. Overall there is improvement noted. Labs reviewed. Results Result Diagram: 09/21/16 0435 09/21/16 0435 MARIANA LING DPM Sep 21, 2016 17:29
[2016-09-21 19:19] VITALS: BP 167/80; RESP 18
[2016-09-21 20:00] VITALS: BP 130/58; RESP 18
[2016-09-21] MEDS: CEFTRIAXONE 1 GM/50 ML (PMX) 50 ML IVPB SCH (20:46)
[2016-09-21 21:00] VITALS: BP 176/79
[2016-09-21] MEDS: INSULIN GLARGINE [LANtus] 3 ML PEN SC SCH (21:19)
[2016-09-21] MEDS ORDERED: hydrALAzine 20 MG INJ IV PRN (21:30)
[2016-09-21 22:32] VITALS: BP 109/69
[2016-09-21] MEDS: HYDROCODONE/APAP (10/325) TAB PO PRN (23:47)
[2016-09-22] MEDS: ACCUCHECK XX SCH ×5 (02:24→21:48)
[2016-09-22] MEDS: morphine 4 MG/ML VIAL IV PRN ×2 (02:24→20:22)
[2016-09-22] MEDS: metroNIDAZOLE 500 MG TAB PO SCH ×3 (05:52→21:53)
[2016-09-22 07:33] VITALS: BP 98/55; RESP 18
[2016-09-22] MEDS: INSULIN ASPART [NOVOLOG] 3 ML PEN SC SCH ×4 (08:00→20:23)
[2016-09-22] MEDS: LISINOPRIL 10 MG TAB PO SCH (08:38)
[2016-09-22] MEDS: CLOPIDOGREL 75 MG TAB PO SCH (08:42)
[2016-09-22] MEDS: LACTOBACILLUS CHEW TAB PO SCH ×2 (08:42→20:22)
[2016-09-22] MEDS: ZYVOX 600 MG TAB PO SCH ×2 (08:42→20:22)
[2016-09-22] MEDS: ASPIRIN 81 MG TAB PO SCH (08:42)
[2016-09-22] MEDS: FAMOTIDINE 20 MG TAB PO SCH (08:42)
[2016-09-22] MEDS: GEMFIBROZIL 600 MG TAB PO SCH ×2 (08:42→20:22)
[2016-09-22] MEDS: LINAGLIPTIN 5 MG TABLET PO SCH (08:42)
[2016-09-22] MEDS: ENOXAPARIN 40 MG/0.4 ML SYG SC SCH (08:44)
[2016-09-22 09:30] VITALS: BP 102/56; PULSE 70
[2016-09-22] MEDS: ONDANSETRON 4 MG INJ IV PRN ×2 (11:52→23:49)
--- NOTE | 2016-09-22 13:35 | CONS ---
Date/Time of Note Date/Time of Note DATE: 09/22/16 TIME: 13:35 Assessment/Plan Assessment/Plan Chief Complaint/Hosp Course 1. Right diabetic foot ulcer with right foot SSTI, wound culture grew VRE, CoNS and proteus 2. C diff positive 3. 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 hx of esbl e.coli infection 01/2015 5. 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 IDDM Hgb A1c 7% 7. HTN associated with DM 8. ACD Recommendations: - F/u MRI R foot to r/o OM - Continue IV ceftriaxone (09/18/2016-) and po linezolid (09/20/2016-) for diabetic foot infection to complete a 6 week course for possible OM - continue PO metronidazole (09/19/2016-) for C diff colitis and diabetic foot infection - continue probiotic - tight blood sugar control - management d/w pt (using staff member, [employer], to translate) and pt's RN - Above d/w Dr. Elias Problems: Consultation Date/Type/Reason Admit Date/Time Sep 15, 2016 at 02:30 Initial Consult Date 09/16/16 Type of Consultation: Infectious Disease Referring Provider: GASTON CELAYA MD 24 HR Interval Summary Free Text/Dictation MRI R foot was attempted yesterday with Ativan but unable to complete and will attempt MRI today per CHEY [place]. Has occasional nausea but no vomiting. No pain, SOB, diarrhea, or dysuria. Exam/Review of Systems Vital Signs Vitals Vital Signs Date Time Temp Pulse Resp B/P Pulse Ox O2 Delivery O2 Flow Rate FiO2 09/22/16 09:30 70 102/56 09/22/16 07:33 98.1 18 94 09/21/16 08:00 Room Air Intake and Output 09/21/16 09/21/16 09/22/16 15:00 23:00 07:00 Intake Total 550 ml 350 ml 440 ml Output Total 350 ml 250 ml Balance 200 ml 100 ml 440 ml Exam Constitutional: alert, oriented, well developed Head: atraumatic, normocephalic Neck: supple Respiratory: clear to auscultation, normal air movement Cardiovascular: regular rate and rhythm, No edema Gastrointestinal: non-tender, soft Extremities: other (Right 4th toe with bluish discoloration beyond the base; small open sore in between 4th and 5th digits noted with mild erythema.) Neurological: nl mental status, nl speech Skin: other (Wound Vac to abdomen and Left hip are intact.). No rash Results C diff 09/18/16: C DIFFICILE DNA AMPLIFICATION Final CYTOTOXIGENIC C DIFFICILE POSITIVE (Ref Range Neg) Right foot wound culture 09/15/16: WOUND CULTURE Final Organism 1 PROTEUS MIRABILIS QUANTITY 1+ Organism 2 COAGULASE NEGATIVE STAPH QUANTITY 2+ Organism 3 VANCO RESISTANT ENTEROCOCCUS QUANTITY 1+ . MULTI DRUG RESISTANT ORGANISM P. MIRAB COAG NEG VRE M.I.C. RX M.I.C. RX M.I.C. RX --------- --- --------- --- --------- --- AMPICILLIN <=2 S >=32 R CEFAZOLIN R CEFOTAXIME S CIPROFLOXACIN >=4 R >=8 R CLINDAMYCIN >=8 R DOXYCYCLINE S ERYTHROMYCIN >=8 R GENTAMICIN <=1 S GENTAMICIN 120 R LEVOFLOXACIN >=8 R >=8 R LINEZOLID S OXACILLIN >=4 R PENICILLIN-G >=0.5 R >=64 R QUINUPRISTIN/DALFOPRISTIN 0.5 S RIFAMPIN <=0.5 S STREPTOMYCIN 300 S VANCOMYCIN 1 S >=32 R TOBRAMYCIN <=1 S TRIMETHOPRIM/SULFAMETHOXAZOLE <=20 S 160 R Result Diagram: 09/21/16 0435 09/21/16 0435 Results 24 hrs Laboratory Tests Test 09/21/16 17:05 09/21/16 20:23 09/22/16 02:16 09/22/16 07:44 Bedside Glucose 115 246 H 100 99 Test 09/22/16 11:23 Bedside Glucose 126 Medications Medications Current Medications Acetaminophen (Tylenol Tab) 650 mg Q6H PRN PO PAIN AND OR ELEVATED TEMP Last administered on 09/15/16t 19:55; Admin Dose 650 MG; Start 09/15/16 at 04:30 Morphine Sulfate (morphine) 3 mg Q4H PRN IV PAIN LEVEL 7-10 Last administered on 09/22/16 02:24; Admin Dose 3 MG; Start 09/15/16 at 04:30 Ondansetron HCl (Zofran Inj) 4 mg Q6H PRN IV NAUSEA AND/OR VOMITING Last administered on 09/22/16 11:52; Admin Dose 4 MG; Start 09/15/16 at 04:30 Aspirin (Aspirin) 81 mg DAILY PO Last administered on 09/22/16 08:42; Admin Dose 81 MG; Start 09/15/16 at 09:00 Clopidogrel Bisulfate (plaVIX) 75 mg DAILY PO Last administered on 09/22/16 08 :42; Admin Dose 75 MG; Start 09/15/16 at 09:00 Gemfibrozil (Lopid) 600 mg BID PO Last administered on 09/22/16 08:42; Admin Dose 600 MG; Start 09/15/16 at 09:00 Lisinopril (Zestril) 10 mg DAILY PO Last administered on 09/21/16 08:48; Admin Dose 10 MG; Start 09/15/16 at 09:00 Diagnostic Test (Pha) (Accucheck) 1 ea 02 XX Last administered on 09/22/16 02: 24; Admin Dose 1 EA; Start 09/16/16 at 02:00 Miscellaneous Information 1 ea NOTE XX ; Start 09/15/16 at 05:30 Glucose (Glutose) 15 gm Q15M PRN PO DECREASED GLUCOSE; Start 09/15/16 at 05:30 Glucose (Glutose) 22.5 gm Q15M PRN PO DECREASED GLUCOSE; Start 09/15/16 at 05: 30 Dextrose (D50w Syringe) 25 ml Q15M PRN IV DECREASED GLUCOSE; Start 09/15/16 at 05:30 Dextrose (D50w Syringe) 50 ml Q15M PRN IV DECREASED GLUCOSE; Start 09/15/16 at 05:30 Glucagon (Glucagen) 1 mg Q15M PRN IM DECREASED GLUCOSE; Start 09/15/16 at 05:30 Glucose (Glutose) 15 gm Q15M PRN BUCCAL DECREASED GLUCOSE Last administered on 09/19/16 08:15; Admin Dose 15 GM; Start 09/15/16 at 05:30 Linagliptin (Tradjenta) 5 mg DAILY PO Last administered on 09/22/16 08:42; Admin Dose 5 MG; Start 09/15/16 at 09:00 Hydrocortisone (Anusol-Hc Supp) 25 mg BID PRN [place] HEMORROID PAIN/ITCHING; Start 09/15/16 at 12:00 Acetaminophen/ Hydrocodone Bitart ([place] (10/325)) 1 tab Q4H PRN PO PAIN Last administered on 09/21/16 23:47; Admin Dose 1 TAB; Start 09/15/16 at 12:00 Lactobacillus Acidoph/Bulgaricus (Floranex) 1 tab BID PO Last administered on 08:42; Admin Dose 1 TAB; Start 09/15/16 at 21:00 Enoxaparin Sodium (Lovenox) 40 mg DAILY SC Last administered on 09/22/16 08:44 ; Admin Dose 40 MG; Start 09/16/16 at 15:00 Famotidine 20 mg 20 mg DAILY PO Last administered on 09/22/16 08:42; Admin Dose 20 MG; Start 09/16/16 at 15:00 Ceftriaxone Sodium (Rocephin) 50 ml @ 100 mls/hr Q24H IVPB Last administered on 09/21/16 20:46; Admin Dose 100 MLS/HR; Start 09/18/16 at 20:00 Insulin Glargine (Lantus) 5 unit HS SC Last administered on 09/21/16 21:19; Admin Dose 5 UNIT; Start 09/19/16 at 21:00 Metronidazole (Flagyl) 500 mg Q8 PO Last administered on 09/22/16 05:52; Admin Dose 500 MG; Start 09/19/16 at 14:00 Linezolid (Zyvox) 600 mg BID PO Last administered on 09/22/16 08:42; Admin Dose 600 MG; Start 09/20/16 at 09:00 Lorazepam (Ativan) 2 mg ONCE IV Last administered on 09/21/16 17:42; Admin Dose 2 MG; Start 09/21/16 at 16:30; Stop 09/22/16 at 16:29 Hydralazine HCl (Apresoline) 10 mg Q6H PRN IV SBP > 160 Last administered on 21:12; Admin Dose 10 MG; Start 09/21/16 at 21:30 Procedures Procedures Right foot x-ray 09/17/16: 1. No definite evidence for osteomyelitis although if there is a skin ulcer or high suspicion for osteomyelitis, a follow-up MRI may be obtained for additional evaluation. 2. 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 3. Plantar calcaneal heel spur and Achilles enthesopathy. 4. Atherosclerotic vascular disease. RLE arterial study 09/16/16: No hemodynamically significant stenosis or occlusion. Diffusely diminished wave forms involving the right lower extremity suggest diffuse atherosclerotic disease. CXR 09/15/16: Stable chest x-ray with no evidence of active cardiopulmonary disease. APURVA VILLAREAL NP Sep 22, 2016 13:35
--- NOTE | 2016-09-22 15:51 | PN ---
Date/Time of Note Date/Time of Note DATE: 09/22/16 TIME: 15:43 Assessment/Plan VTE Prophylaxis VTE Prophylaxis Intervention: LMWH Lines/Catheters IV Catheter Type (from [facility]): [facility] Urinary Cath still in place: No Assessment/Plan Assessment/Plan 1. Right diabetic foot ulcer with right foot SSTI, wound culture grew VRE, CoNS and proteus, on zyvox, rocephin. ID request MRI but patient could not finish it yesterday even with ativan due to claustrophobia, will try today 2. DM with neurological and vascular manifestations, on insulins 3. PVD s/p catheter placement from R ONLINE BANKING SPECIALIST into L DP artery, thrombectomy of L DP artery, revasc of L anterior tibial artery on 02/15/2015 4. Peripheral neuropathy 5. Hx amputation of gangrenous L 2nd toe and excisional debridement of partial gangrene of L 3rd toe 02/28/15 6. HTN, controlled 7. C diff colitis, on oral flagyl 8. 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 DVT prophylaxis: lovenox Subjective 24 Hr Interval Summary Free Text/Dictation afebrile Exam/Review of Systems Vital Signs Vitals Vital Signs Date Time Temp Pulse Resp B/P Pulse Ox O2 Delivery O2 Flow Rate FiO2 09/22/16 09:30 70 102/56 09/22/16 07:33 98.1 18 94 09/21/16 08:00 Room Air Intake and Output 09/21/16 09/21/16 09/22/16 15:00 23:00 07:00 Intake Total 550 ml 350 ml 440 ml Output Total 350 ml 250 ml Balance 200 ml 100 ml 440 ml Exam Constitutional: alert, oriented, well developed Psych: nl mood/affect, no complaints Head: atraumatic, normocephalic Eyes: EOMI, PERRL, nl conjunctiva, nl lids ENMT: nl external ears & nose, nl lips & teeth, nl nasal mucosa & septum Neck: non-tender, supple Respiratory: clear to auscultation, normal air movement, No congested cough, No crackles/rales, No diminished breath sounds, No intercostal retraction, No labored breathing, No other, No respirations, No tactile fremitus, No wheezing Cardiovascular: nl pulses, regular rate and rhythm, No S3, No S4, No bruits, No diastolic murmur, No edema, No gallop, No irregular rhythm, No jugular venous distention (JVD), No murmurs/extra sounds, No other, No rub, No systolic murmur Gastrointestinal: nl liver, spleen, non-tender, soft, No ascites, No bowel sounds, No distended, No firm, No hepatomegaly, No mass , No other, No rebound or guarding, No splenomegaly, No surgical scars, No tender Extremities: other (s/p left lower extremity amputation with wound on wound VAC. Right foot infection with discolored 4th toe mainly) Neurological: CANDY DIPPER II-XII intact, nl mental status, nl speech, nl strength Skin: nl turgor, rash or lesions Lymph: nl lymph nodes Results Result Diagram: 09/21/1643409/21/16434 Results 24 hrs Laboratory Tests Test 09/21/16 17:05 09/21/16 20:23 09/22/16 02:16 09/22/16 07:44 Bedside Glucose 115 246 H 100 99 Test 09/22/16 11:23 Bedside Glucose 126 Medications Medications Current Medications Acetaminophen (Tylenol Tab) 650 mg Q6H PRN PO PAIN AND OR ELEVATED TEMP Last administered on 09/15/16 19:55; Admin Dose 650 MG; Start 09/15/16 at 04:30 Morphine Sulfate (morphine) 3 mg Q4H PRN IV PAIN LEVEL 7-10 Last administered on 09/22/16 02:24; Admin Dose 3 MG; Start 09/15/16 at 04:30 Ondansetron HCl (Zofran Inj) 4 mg Q6H PRN IV NAUSEA AND/OR VOMITING Last administered on 09/22/16 11:52; Admin Dose 4 MG; Start 09/15/16 at 04:30 Aspirin (Aspirin) 81 mg DAILY PO Last administered on 09/22/16 08:42; Admin Dose 81 MG; Start 09/15/16 at 09:00 Clopidogrel Bisulfate (plaVIX) 75 mg DAILY PO Last administered on 09/22/16 08 :42; Admin Dose 75 MG; Start 09/15/16 at 09:00 Gemfibrozil (Lopid) 600 mg BID PO Last administered on 09/22/16 08:42; Admin Dose 600 MG; Start 09/15/16 at 09:00 Lisinopril (Zestril) 10 mg DAILY PO Last administered on 09/21/16 08:48; Admin Dose 10 MG; Start 09/15/16 at 09:00 Diagnostic Test (Pha) (Accucheck) 1 ea 02 XX Last administered on 09/22/16 02: 24; Admin Dose 1 EA; Start 09/16/16 at 02:00 Miscellaneous Information 1 ea NOTE XX ; Start 09/15/16 at 05:30 Glucose (Glutose) 15 gm Q15M PRN PO DECREASED GLUCOSE; Start 09/15/16 at 05:30 Glucose (Glutose) 22.5 gm Q15M PRN PO DECREASED GLUCOSE; Start 09/15/16 at 05: 30 Dextrose (D50w Syringe) 25 ml Q15M PRN IV DECREASED GLUCOSE; Start 09/15/16 at 05:30 Dextrose (D50w Syringe) 50 ml Q15M PRN IV DECREASED GLUCOSE; Start 09/15/16 at 05:30 Glucagon (Glucagen) 1 mg Q15M PRN IM DECREASED GLUCOSE; Start 09/15/16 at 05:30 Glucose (Glutose) 15 gm Q15M PRN BUCCAL DECREASED GLUCOSE Last administered on 09/19/16 08:15; Admin Dose 15 GM; Start 09/15/16 at 05:30 Linagliptin (Tradjenta) 5 mg DAILY PO Last administered on 09/22/16 08:42; Admin Dose 5 MG; Start 09/15/16 at 09:00 Hydrocortisone (Anusol-Hc Supp) 25 mg BID PRN [place] HEMORROID PAIN/ITCHING; Start 09/15/16 at 12:00 Acetaminophen/ Hydrocodone Bitart ([place] (10/325)) 1 tab Q4H PRN PO PAIN Last administered on 09/21/16 23:47; Admin Dose 1 TAB; Start 09/15/16 at 12:00 Lactobacillus Acidoph/Bulgaricus (Floranex) 1 tab BID PO Last administered on 08:42; Admin Dose 1 TAB; Start 09/15/16 at 21:00 Enoxaparin Sodium (Lovenox) 40 mg DAILY SC Last administered on 09/22/16 08:44 ; Admin Dose 40 MG; Start 09/16/16 at 15:00 Famotidine 20 mg 20 mg DAILY PO Last administered on 09/22/16 08:42; Admin Dose 20 MG; Start 09/16/16 at 15:00 Ceftriaxone Sodium (Rocephin) 50 ml @ 100 mls/hr Q24H IVPB Last administered on 09/21/16 20:46; Admin Dose 100 MLS/HR; Start 09/18/16 at 20:00 Insulin Glargine (Lantus) 5 unit HS SC Last administered on 09/21/16 21:19; Admin Dose 5 UNIT; Start 09/19/16 at 21:00 Metronidazole (Flagyl) 500 mg Q8 PO Last administered on 09/22/16 13:40; Admin Dose 500 MG; Start 09/19/16 at 14:00 Linezolid (Zyvox) 600 mg BID PO Last administered on 09/22/16 08:42; Admin Dose 600 MG; Start 09/20/16 at 09:00 Lorazepam (Ativan) 2 mg ONCE IV Last administered on 09/21/16 17:42; Admin Dose 2 MG; Start 09/21/16 at 16:30; Stop 09/22/16 at 16:29 Hydralazine HCl (Apresoline) 10 mg Q6H PRN IV SBP > 160 Last administered on 21:12; Admin Dose 10 MG; Start 09/21/16 at 21:30 BI VALLEJO MD Sep 22, 2016 15:51
[2016-09-22 19:44] VITALS: BP 135/72; RESP 18
[2016-09-22] MEDS: CEFTRIAXONE 1 GM/50 ML (PMX) 50 ML IVPB SCH (20:22)
[2016-09-22] MEDS: INSULIN GLARGINE [LANtus] 3 ML PEN SC SCH (20:24)
[2016-09-22] MEDS: HYDROCODONE/APAP (10/325) TAB PO PRN (21:53)
[2016-09-22 23:41] VITALS: BP 158/63; PULSE 66; RESP 18
[2016-09-23] MEDS: morphine 4 MG/ML VIAL IV PRN ×2 (00:48→20:34)
[2016-09-23] MEDS: ACCUCHECK XX SCH ×5 (02:00→21:00)
[2016-09-23] MEDS: metroNIDAZOLE 500 MG TAB PO SCH ×3 (05:57→20:33)
[2016-09-23 07:52] VITALS: BP 111/61; RESP 14
[2016-09-23] MEDS: INSULIN ASPART [NOVOLOG] 3 ML PEN SC SCH ×4 (08:00→20:54)
--- NOTE | 2016-09-23 08:02 | RADRPT ---
PROCEDURE: MR Foot. CLINICAL INDICATION: Right fourth toe gangrene with concern for osteomyelitis. Diabetes and perip heral vascular disease. TECHNIQUE: Noncontrast MRI examination of the right foot from the tarsus to the toes, with axial, s agittal and coronal reformatted images. COMPARISON: Right foot plain film examination dated 09/17/2016. FINDINGS: No abnormal signal seen within the osseous structures of the fourth digit to suggest osteomyelitis. Additionally, the remaining osseous structures of the right forefoot are without MR evidence of ost eomyelitis. There are no fractures or dislocations. There are no stress fractures. The osseous structures are normal. They demonstrate normal bone marrow signal. The sesamoids are normal. They are not diverg ent. No osteoarthritic changes are noted. All articular surfaces are unremarkable. The Lisfranc ligament is normal. The remaining visualized ligamentous structures are unremarkable. All visualized flexor and extensor mechanism tendons are normal. There is no muscular atrophy. There are no abnormal fluid collections. Mild adventitial bursitis is suspected at the plantar aspe ct of the head of the second metatarsal. IMPRESSION: No evident osteomyelitis. RPTAT: [facility] Physician Urmila Date Time Electronically viewed and signed by Physician Urmila on 09/23/2016 00:04 RS/
[2016-09-23] MEDS: ENOXAPARIN 40 MG/0.4 ML SYG SC SCH (08:49)
[2016-09-23] MEDS: LACTOBACILLUS CHEW TAB PO SCH ×2 (08:50→20:33)
[2016-09-23] MEDS: GEMFIBROZIL 600 MG TAB PO SCH ×2 (08:50→20:33)
[2016-09-23] MEDS: ZYVOX 600 MG TAB PO SCH ×2 (08:50→20:33)
[2016-09-23] MEDS: ASPIRIN 81 MG TAB PO SCH (08:50)
[2016-09-23] MEDS: CLOPIDOGREL 75 MG TAB PO SCH (08:50)
[2016-09-23] MEDS: FAMOTIDINE 20 MG TAB PO SCH (08:51)
[2016-09-23] MEDS: LINAGLIPTIN 5 MG TABLET PO SCH (08:51)
[2016-09-23] MEDS: LISINOPRIL 10 MG TAB PO SCH (12:20)
--- NOTE | 2016-09-23 12:27 | CONS ---
Date/Time of Note Date/Time of Note DATE: 09/23/16 TIME: 12:26 Assessment/Plan Assessment/Plan Chief Complaint/Hosp Course 1. Right diabetic foot ulcer with right foot SSTI, wound culture grew VRE, CoNS and proteus 2. C diff positive 3. 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 hx of esbl e.coli infection 01/2015 5. PVD s/p catheter placement from R COAL PASSER into L DP artery, thrombectomy of L DP artery, revasc of L anterior tibial artery on 02/15/2015 6. IDDM Hgb A1c 7% 7. HTN associated with DM 8. ACD Recommendations: - Continue IV ceftriaxone (09/18/2016-) and po linezolid (09/20/2016-) and continue PO metronidazole (09/19/2016-) for C diff colitis and diabetic foot infection-to finish 2 weeks total based on clinical response - continue probiotic - tight blood sugar control - management d/w pt (using staff member, Marla, to translate) and pt's RN Problems: Consultation Date/Type/Reason Admit Date/Time Sep 15, 2016 at 02:30 Initial Consult Date 09/15/16 Type of Consultation: Infectious Disease Referring Provider: GASTON CELAYA MD Exam/Review of Systems Vital Signs Vitals Vital Signs Date Time Temp Pulse Resp B/P Pulse Ox O2 Delivery O2 Flow Rate FiO2 09/23/16 07:52 98.2 76 14 111/61 97 09/22/16 23:41 Room Air Intake and Output 09/22/16 09/22/16 09/23/16 15:00 23:00 07:00 Intake Total 990 ml 440 ml Balance 990 ml 440 ml Exam Constitutional: alert, oriented, well developed Psych: nl mood/affect, no complaints Head: atraumatic, normocephalic Eyes: EOMI, PERRL, nl conjunctiva, nl lids, nl sclera Neck: non-tender, supple Respiratory: clear to auscultation, normal air movement Cardiovascular: nl pulses, regular rate and rhythm Results Result Diagram: 09/21/1643409/21/16434 Results 24 hrs Laboratory Tests Test 09/22/16:02 09/22/16 20:20 09/23/16 08:32 09/23/16 11:40 Bedside Glucose 169 146 133 246 H Medications Medications Current Medications Acetaminophen (Tylenol Tab) 650 mg Q6H PRN PO PAIN AND OR ELEVATED TEMP Last administered on 09/15/16 19:55; Admin Dose 650 MG; Start 09/15/16 at 04:30 Morphine Sulfate (morphine) 3 mg Q4H PRN IV PAIN LEVEL 7-10 Last administered on 09/23/16 00:48; Admin Dose 3 MG; Start 09/15/16 at 04:30 Ondansetron HCl (Zofran Inj) 4 mg Q6H PRN IV NAUSEA AND/OR VOMITING Last administered on 09/22/16 23:49; Admin Dose 4 MG; Start 09/15/16 at 04:30 Aspirin (Aspirin) 81 mg DAILY PO Last administered on 09/23/16 08:50; Admin Dose 81 MG; Start 09/15/16 at 09:00 Clopidogrel Bisulfate (plaVIX) 75 mg DAILY PO Last administered on 09/23/16 08 :50; Admin Dose 75 MG; Start 09/15/16 at 09:00 Gemfibrozil (Lopid) 600 mg BID PO Last administered on 09/23/16 08:50; Admin Dose 600 MG; Start 09/15/16 at 09:00 Lisinopril (Zestril) 10 mg DAILY PO Last administered on 09/23/16 12:20; Admin Dose 10 MG; Start 09/15/16 at 09:00 Diagnostic Test (Pha) (Accucheck) 1 ea 02 XX Last administered on 09/22/16 02: 24; Admin Dose 1 EA; Start 09/16/16 at 02:00 Miscellaneous Information 1 ea NOTE XX ; Start 09/15/16 at 05:30 Glucose (Glutose) 15 gm Q15M PRN PO DECREASED GLUCOSE; Start 09/15/16 at 05:30 Glucose (Glutose) 22.5 gm Q15M PRN PO DECREASED GLUCOSE; Start 09/15/16 at 05: 30 Dextrose (D50w Syringe) 25 ml Q15M PRN IV DECREASED GLUCOSE; Start 09/15/16 at 05:30 Dextrose (D50w Syringe) 50 ml Q15M PRN IV DECREASED GLUCOSE; Start 09/15/16 at 05:30 Glucagon (Glucagen) 1 mg Q15M PRN IM DECREASED GLUCOSE; Start 09/15/16 at 05:30 Glucose (Glutose) 15 gm Q15M PRN BUCCAL DECREASED GLUCOSE Last administered on 09/19/16 08:15; Admin Dose 15 GM; Start 09/15/16 at 05:30 Linagliptin (Tradjenta) 5 mg DAILY PO Last administered on 09/23/16 08:51; Admin Dose 5 MG; Start 09/15/16 at 09:00 Hydrocortisone (Anusol-Hc Supp) 25 mg BID PRN [place] HEMORROID PAIN/ITCHING; Start 09/15/16 at 12:00 Acetaminophen/ Hydrocodone Bitart ([place] (10/325)) 1 tab Q4H PRN PO PAIN Last administered on 09/22/16 21:53; Admin Dose 1 TAB; Start 09/15/16 at 12:00 Lactobacillus Acidoph/Bulgaricus (Floranex) 1 tab BID PO Last administered on 08:50; Admin Dose 1 TAB; Start 09/15/16 at 21:00 Enoxaparin Sodium (Lovenox) 40 mg DAILY SC Last administered on 09/23/16 08:49 ; Admin Dose 40 MG; Start 09/16/16 at 15:00 Famotidine 20 mg 20 mg DAILY PO Last administered on 09/23/16 08:51; Admin Dose 20 MG; Start 09/16/16 at 15:00 Ceftriaxone Sodium (Rocephin) 50 ml @ 100 mls/hr Q24H IVPB Last administered on 09/22/16 20:22; Admin Dose 100 MLS/HR; Start 09/18/16 at 20:00 Insulin Glargine (Lantus) 5 unit HS SC Last administered on 09/22/16 20:24; Admin Dose 5 UNIT; Start 09/19/16 at 21:00 Metronidazole (Flagyl) 500 mg Q8 PO Last administered on 09/23/16 05:57; Admin Dose 500 MG; Start 09/19/16 at 14:00 Linezolid (Zyvox) 600 mg BID PO Last administered on 09/23/16 08:50; Admin Dose 600 MG; Start 09/20/16 at 09:00 Hydralazine HCl (Apresoline) 10 mg Q6H PRN IV SBP > 160 Last administered on t 21:12; Admin Dose 10 MG; Start 09/21/16 at 21:30 MARIA DOLORES CHACON MD Sep 23, 2016 12:27
[2016-09-23] MEDS ORDERED: LINE600T6 PO (14:08)
[2016-09-23] MEDS ORDERED: METR500T14 PO (14:08)
[2016-09-23] MEDS ORDERED: ACID1TAB14 PO (14:08)
[2016-09-23] MEDS ORDERED: CEFT1PIG2 IVPB (14:09)
[2016-09-23] MEDS ORDERED: LANT3I SC (14:09)
--- NOTE | 2016-09-23 14:18 | DS ---
Date/Time of Note Date/Time of Note DATE: 09/23/16 TIME: 14:11 Discharge Summary Admission/Discharge Info Admit Date/Time Sep 15, 2016 at 02:30 Discharge Date/Time Final Diagnosis 1. Right diabetic foot ulcer with right foot SSTI, wound culture grew VRE, CoNS and proteus, no osteomyolitis on MRI, on zyvox, rocephin. 2. DM with neurological and vascular manifestations, on insulins, follow up with PCP 3. PVD s/p catheter placement from R BUSINESS ANALYTICS MANAGER into L DP artery, thrombectomy of L DP artery, revasc of L anterior tibial artery on 02/15/2015 4. Peripheral neuropathy, stable 5. Hx amputation of gangrenous L 2nd toe and excisional debridement of partial gangrene of L 3rd toe 02/28/15 6. HTN, controlled 7. C diff colitis, on oral flagyl 8. 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 The patient recently had the total leg amputation at the [facility] in July of last year. She stated that she had noticed some redness on the dorsum of her right foot as well as some ulcer between the 4th and the 5th toe, which is also very tender , especially with movement of heart rate toes. She denied any chest pain, shortness of breath, nausea, vomiting, but reported occasional subjective fever. Again, the patient has been transferred here to [facility] because of insurance reasons. Physcal exam with discoloration of right 4th and 5th toe with a open wound between the two toes Culture from the wound is positive for VRE, CoNS and proteus. MRI is negative for osteomyelitis. Podiatry consultation recommend antibiotics treatment without debridement. Patient has PICC line and she will be on iv rocephin(started on 09/18/2016), oral zyvox(started on 09/19/2016). Patient has C. Diff colitis, that she is on oral flagyl. Home Meds Active Scripts Ceftriaxone Sod* (Rocephin* 1GM/50ML (PMX)) 1 Gm/50 Ml Iv.soln., 1 GM IVPB Q24H for 9 Days, EA Prov:BI VALLEJO MD 09/23/16 Insulin Glargine* (Lantus*) 100 Unit/Ml Soln, 5 UNIT SC HS for 30 Days Prov:BI VALLEJO MD 09/23/16 Metronidazole (Flagyl) 500 Mg Tab, 500 MG PO Q8 for 10 Days, TAB Prov:BI VALLEJO MD 09/23/16 Linezolid (Linezolid) 600 Mg Tablet, 600 MG PO BID for 10 Days, TAB Prov:BI VALLEJO MD 09/23/16 Lactobacillus Acidoph/Bulgaricus* (Floranex*) 1 Each Tablet, 1 TAB PO BID for 20 Days, TAB Prov:BI VALLEJO MD 09/23/16 Reported Medications Clopidogrel Bisulfate (Clopidogrel) 75 Mg Tablet, 75 MG PO DAILY, TAB 02/13/15 Gemfibrozil* (Gemfibrozil*) 600 Mg Tablet, 600 MG PO BID, TAB 02/13/15 Aspirin* (Aspirin* Chew) 81 Mg Tab.chew, 81 MG PO DAILY, TAB.CHEW 02/13/15 Sitagliptin Phos-Metformin Hcl (Janumet) 50-1,000 Mg Tablet, 1 TAB PO BID, TAB 02/13/15 Lisinopril* (Lisinopril*) 10 Mg Tablet, 10 MG PO DAILY, TAB 02/13/15 Discontinued Reported Medications Olmesartan Medoxomil (Benicar) 40 Mg Tablet, 40 MG PO DAILY, TAB 02/13/15 Glipizide* (Glipizide*) 10 Mg Tablet, 10 MG PO DAILY, TAB 02/13/15 Glimepiride* (Glimepiride*) 4 Mg Tablet, 4 MG PO WITH BREAKFAST, TAB 02/13/15 Discontinued Scripts Insulin Glargine* (Lantus*) 100 Unit/Ml Soln, 20 UNIT SC HS, #10 ML Prov:WALDO JACKSON 03/07/15 Follow-up Plan PCP in one week, administrative support clerk in one week, home health for wound and iv antibiotics Pending Labs Laboratory Tests Test 09/22/16 17:02 09/22/16 20:20 09/23/16 08:32 09/23/16 11:40 Bedside Glucose 169mg/dL (70-220) 146mg/dL (70-220) 133mg/dL (70-220) 246mg/dL (70-220) BI VALLEJO MD Sep 23, 2016 14:18
[2016-09-23 19:39] VITALS: BP 148/70; RESP 18
[2016-09-23] MEDS: CEFTRIAXONE 1 GM/50 ML (PMX) 50 ML IVPB SCH (20:31)
[2016-09-23] MEDS: INSULIN GLARGINE [LANtus] 3 ML PEN SC SCH (20:43)
[2016-09-23] MEDS: HYDROCODONE/APAP (10/325) TAB PO PRN (23:58)
[2016-09-24] MEDS: ACCUCHECK XX SCH ×4 (02:00→17:28)
[2016-09-24] MEDS: metroNIDAZOLE 500 MG TAB PO SCH ×2 (06:07→13:54)
[2016-09-24 07:58] VITALS: BP 102/58; RESP 16
[2016-09-24] MEDS: INSULIN ASPART [NOVOLOG] 3 ML PEN SC SCH ×3 (08:00→17:29)
[2016-09-24] MEDS ORDERED: LIDOCAINE 1% (MDV) 20 ML INJ SC ONE (11:00)
[2016-09-24] MEDS: ASPIRIN 81 MG TAB PO SCH (11:01)
[2016-09-24] MEDS: LINAGLIPTIN 5 MG TABLET PO SCH (11:02)
[2016-09-24] MEDS: LACTOBACILLUS CHEW TAB PO SCH (11:02)
[2016-09-24] MEDS: GEMFIBROZIL 600 MG TAB PO SCH (11:02)
[2016-09-24] MEDS: CLOPIDOGREL 75 MG TAB PO SCH (11:02)
[2016-09-24] MEDS: FAMOTIDINE 20 MG TAB PO SCH (11:02)
[2016-09-24] MEDS: ZYVOX 600 MG TAB PO SCH (11:02)
[2016-09-24] MEDS: LISINOPRIL 10 MG TAB PO SCH (11:03)
[2016-09-24] MEDS: ENOXAPARIN 40 MG/0.4 ML SYG SC SCH (11:04)
--- NOTE | 2016-09-24 12:22 | CONS ---
Date/Time of Note Date/Time of Note DATE: 09/24/16 TIME: 12:15 Assessment/Plan Assessment/Plan Chief Complaint/Hosp Course 1. Right diabetic foot ulcer with right foot SSTI, wound culture grew VRE, CoNS and proteus 2. C diff positive 3. 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 hx of esbl e.coli infection 01/2015 5. PVD s/p catheter placement from R DRAW MACHINE OPERATOR into L DP artery, thrombectomy of L DP artery, revasc of L anterior tibial artery on 02/15/2015 6. IDDM Hgb A1c 7% 7. HTN associated with DM 8. ACD Recommendations: - Continue IV ceftriaxone (09/18/2016-), po linezolid (09/20/2016-), and po metronidazole (09/19/2016-) for C diff colitis and diabetic foot infection to finish 2 weeks total based on clinical response - continue probiotic - tight blood sugar control - management d/w pt and pt's RN who assisted with translating in Irish - DC planning - Above d/w Dr. Elias Problems: Consultation Date/Type/Reason Admit Date/Time Sep 15, 2016 at 02:30 Initial Consult Date 09/16/16 Type of Consultation: Infectious Disease Referring Provider: GASTON CELAYA MD 24 HR Interval Summary Free Text/Dictation Pt tearfully asking if she will need amputation per RN Walter. DC planning in progress and pt awaiting PICC line placement. Denies pain, SOB, n/v/d, dysuria. Exam/Review of Systems Vital Signs Vitals Vital Signs Date Time Temp Pulse Resp B/P Pulse Ox O2 Delivery O2 Flow Rate FiO2 09/24/16 07:58 98.3 73 16 102/58 99 09/22/16 23:41 Room Air Intake and Output 09/23/16 09/23/16 09/24/16 15:00 23:00 07:00 Intake Total 1750 ml 400 ml Balance 1750 ml 400 ml Exam Constitutional: alert, oriented, well developed Head: atraumatic, normocephalic Neck: supple Respiratory: clear to auscultation, normal air movement Cardiovascular: regular rate and rhythm, No edema Gastrointestinal: non-tender, soft Extremities: other (Right 4th toe with purplish blue discoloration beyond the base; small open sore in between 4th and 5th digits with dressing c/d/i.) Neurological: nl mental status, nl speech Skin: other (Wound Vac to abdomen and Left hip are intact.). No rash Results Result Diagram: 09/21/16 0435 09/21/16 0435 Results 24 hrs Laboratory Tests Test 09/23/16 17:22 09/23/16 20:41 09/24/16 08:48 Bedside Glucose 114 171 94 Medications Medications Current Medications Acetaminophen (Tylenol Tab) 650 mg Q6H PRN PO PAIN AND OR ELEVATED TEMP Last administered on 09/15/16 19:55; Admin Dose 650 MG; Start 09/15/16 at 04:30 Morphine Sulfate (morphine) 3 mg Q4H PRN IV PAIN LEVEL 7-10 Last administered on 09/23/16 20:34; Admin Dose 3 MG; Start 09/15/16 at 04:30 Ondansetron HCl (Zofran Inj) 4 mg Q6H PRN IV NAUSEA AND/OR VOMITING Last administered on 09/22/16 23:49; Admin Dose 4 MG; Start 09/15/16 at 04:30 Aspirin (Aspirin) 81 mg DAILY PO Last administered on 09/24/16 11:01; Admin Dose 81 MG; Start 09/15/16 at 09:00 Clopidogrel Bisulfate (plaVIX) 75 mg DAILY PO Last administered on 09/24/16 11 :02; Admin Dose 75 MG; Start 09/15/16 at 09:00 Gemfibrozil (Lopid) 600 mg BID PO Last administered on 09/24/16 11:02; Admin Dose 600 MG; Start 09/15/16 at 09:00 Lisinopril (Zestril) 10 mg DAILY PO Last administered on 09/24/16 11:03; Admin Dose 10 MG; Start 09/15/16 at 09:00 Diagnostic Test (Pha) (Accucheck) 1 ea 02 XX Last administered on 09/22/16 02: 24; Admin Dose 1 EA; Start 09/16/16 at 02:00 Miscellaneous Information 1 ea NOTE XX ; Start 09/15/16 at 05:30 Glucose (Glutose) 15 gm Q15M PRN PO DECREASED GLUCOSE; Start 09/15/16 at 05:30 Glucose (Glutose) 22.5 gm Q15M PRN PO DECREASED GLUCOSE; Start 09/15/16 at 05: 30 Dextrose (D50w Syringe) 25 ml Q15M PRN IV DECREASED GLUCOSE; Start 09/15/16 at 05:30 Dextrose (D50w Syringe) 50 ml Q15M PRN IV DECREASED GLUCOSE; Start 09/15/16 at 05:30 Glucagon (Glucagen) 1 mg Q15M PRN IM DECREASED GLUCOSE; Start 09/15/16 at 05:30 Glucose (Glutose) 15 gm Q15M PRN BUCCAL DECREASED GLUCOSE Last administered on 09/19/16 08:15; Admin Dose 15 GM; Start 09/15/16 at 05:30 Linagliptin (Tradjenta) 5 mg DAILY PO Last administered on 09/24/16 11:02; Admin Dose 5 MG; Start 09/15/16 at 09:00 Hydrocortisone (Anusol-Hc Supp) 25 mg BID PRN [place] HEMORROID PAIN/ITCHING; Start 09/15/16 at 12:00 Acetaminophen/ Hydrocodone Bitart ([place] (10/325)) 1 tab Q4H PRN PO PAIN Last administered on 09/23/16 23:58; Admin Dose 1 TAB; Start 09/15/16 at 12:00 Lactobacillus Acidoph/Bulgaricus (Floranex) 1 tab BID PO Last administered on 11:02; Admin Dose 1 TAB; Start 09/15/16 at 21:00 Enoxaparin Sodium (Lovenox) 40 mg DAILY SC Last administered on 09/24/16 11:04 ; Admin Dose 40 MG; Start 09/16/16 at 15:00 Famotidine 20 mg 20 mg DAILY PO Last administered on 09/24/16 11:02; Admin Dose 20 MG; Start 09/16/16 at 15:00 Ceftriaxone Sodium (Rocephin) 50 ml @ 100 mls/hr Q24H IVPB Last administered on 09/23/16 20:31; Admin Dose 100 MLS/HR; Start 09/18/16 at 20:00 Insulin Glargine (Lantus) 5 unit HS SC Last administered on 09/23/16 20:43; Admin Dose 5 UNIT; Start 09/19/16 at 21:00 Metronidazole (Flagyl) 500 mg Q8 PO Last administered on 09/24/16 06:07; Admin Dose 500 MG; Start 09/19/16 at 14:00 Linezolid (Zyvox) 600 mg BID PO Last administered on 09/24/16 11:02; Admin Dose 600 MG; Start 09/20/16 at 09:00 Hydralazine HCl (Apresoline) 10 mg Q6H PRN IV SBP > 160 Last administered on 21:12; Admin Dose 10 MG; Start 09/21/16 at 21:30 Procedures Procedures Right foot MRI 09/22/16: No evident osteomyelitis. APURVA VILLAREAL NP Sep 24, 2016 12:22
--- NOTE | 2016-09-24 14:09 | PN ---
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 The patient recently had the total leg amputation at the [facility] in July of last year. She stated that she had noticed some redness on the dorsum of her right foot as well as some ulcer between the 4th and the 5th toe, which is also very tender , especially with movement of heart rate toes. She denied any chest pain, shortness of breath, nausea, vomiting, but reported occasional subjective fever. Again, the patient has been transferred here to [facility] because of insurance reasons. Physcal exam with discoloration of right 4th and 5th toe with a open wound between the two toes Culture from the wound is positive for VRE, CoNS and proteus. MRI is negative for osteomyelitis. Podiatry consultation recommend antibiotics treatment without debridement. Patient has PICC line and she will be on iv rocephin(started on 09/18/2016), oral zyvox(started on 09/19/2016). Patient has C. Diff colitis, that she is on oral flagyl. Problems: Assessment/Plan 1. Right diabetic foot ulcer with right foot SSTI, wound culture grew VRE, CoNS and proteus, no osteomyolitis on MRI, on zyvox, rocephin. awaiting for PICC line and arrangement 2. DM with neurological and vascular manifestations, on insulins, follow up with PCP 3. PVD s/p catheter placement from R [employer]NA[employer] into L DP artery, thrombectomy of L DP artery, revasc of L anterior tibial artery on 02/15/2015 4. Peripheral neuropathy, stable 5. Hx amputation of gangrenous L 2nd toe and excisional debridement of partial gangrene of L 3rd toe 02/28/15 6. HTN, controlled 7. C diff colitis, on oral flagyl 8. 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, cont drain care Subjective 24 Hr Interval Summary Free Text/Dictation afebrile Exam/Review of Systems Vital Signs Vitals Vital Signs Date Time Temp Pulse Resp B/P Pulse Ox O2 Delivery O2 Flow Rate FiO2 09/24/16 07:58 98.3 73 16 102/58 99 09/22/16 23:41 Room Air Intake and Output 09/23/16 09/23/16 09/24/16 15:00 23:00 07:00 Intake Total 1750 ml 400 ml Balance 1750 ml 400 ml Exam Constitutional: alert, oriented, well developed Psych: nl mood/affect, no complaints Head: atraumatic, normocephalic Eyes: EOMI, PERRL, nl conjunctiva, nl lids ENMT: nl external ears & nose, nl lips & teeth, nl nasal mucosa & septum Neck: non-tender, supple Respiratory: clear to auscultation, normal air movement, No congested cough, No crackles/rales, No diminished breath sounds, No intercostal retraction, No labored breathing, No other, No respirations, No tactile fremitus, No wheezing Cardiovascular: nl pulses, regular rate and rhythm, No S3, No S4, No bruits, No diastolic murmur, No edema, No gallop, No irregular rhythm, No jugular venous distention (JVD), No murmurs/extra sounds, No other, No rub, No systolic murmur Gastrointestinal: nl liver, spleen, non-tender, soft, No ascites, No bowel sounds, No distended, No firm, No hepatomegaly, No mass , No other, No rebound or guarding, No splenomegaly, No surgical scars, No tender Neurological: SUMATRA OPENER II-XII intact, nl mental status, nl speech, nl strength Results Result Diagram: 09/21/1643409/21/16 043 Results 24 hrs Laboratory Tests Test 09/23/16 17:22 09/23/16 20:41 09/24/16 08:48 09/24/16 12:48 Bedside Glucose 114 171 94 247 H Medications Medications Current Medications Acetaminophen (Tylenol Tab) 650 mg Q6H PRN PO PAIN AND OR ELEVATED TEMP Last administered on 09/15/16t 19:55; Admin Dose 650 MG; Start 09/15/16 at 04:30 Morphine Sulfate (morphine) 3 mg Q4H PRN IV PAIN LEVEL 7-10 Last administered on 09/23/16 20:34; Admin Dose 3 MG; Start 09/15/16 at 04:30 Ondansetron HCl (Zofran Inj) 4 mg Q6H PRN IV NAUSEA AND/OR VOMITING Last administered on 09/22/16 23:49; Admin Dose 4 MG; Start 09/15/16 at 04:30 Aspirin (Aspirin) 81 mg DAILY PO Last administered on 09/24/16 11:01; Admin Dose 81 MG; Start 09/15/16 at 09:00 Clopidogrel Bisulfate (plaVIX) 75 mg DAILY PO Last administered on 09/24/16 11 :02; Admin Dose 75 MG; Start 09/15/16 at 09:00 Gemfibrozil (Lopid) 600 mg BID PO Last administered on 09/24/16 11:02; Admin Dose 600 MG; Start 09/15/16 at 09:00 Lisinopril (Zestril) 10 mg DAILY PO Last administered on 09/24/16 11:03; Admin Dose 10 MG; Start 09/15/16 at 09:00 Diagnostic Test (Pha) (Accucheck) 1 ea 02 XX Last administered on 09/22/16 02: 24; Admin Dose 1 EA; Start 09/16/16 at 02:00 Miscellaneous Information 1 ea NOTE XX ; Start 09/15/16 at 05:30 Glucose (Glutose) 15 gm Q15M PRN PO DECREASED GLUCOSE; Start 09/15/16 at 05:30 Glucose (Glutose) 22.5 gm Q15M PRN PO DECREASED GLUCOSE; Start 09/15/16 at 05: 30 Dextrose (D50w Syringe) 25 ml Q15M PRN IV DECREASED GLUCOSE; Start 09/15/16 at 05:30 Dextrose (D50w Syringe) 50 ml Q15M PRN IV DECREASED GLUCOSE; Start 09/15/16 at 05:30 Glucagon (Glucagen) 1 mg Q15M PRN IM DECREASED GLUCOSE; Start 09/15/16 at 05:30 Glucose (Glutose) 15 gm Q15M PRN BUCCAL DECREASED GLUCOSE Last administered on 09/19/16 08:15; Admin Dose 15 GM; Start 09/15/16 at 05:30 Linagliptin (Tradjenta) 5 mg DAILY PO Last administered on 09/24/16 11:02; Admin Dose 5 MG; Start 09/15/16 at 09:00 Hydrocortisone (Anusol-Hc Supp) 25 mg BID PRN [place] HEMORROID PAIN/ITCHING; Start 09/15/16 at 12:00 Acetaminophen/ Hydrocodone Bitart ([place] (10/325)) 1 tab Q4H PRN PO PAIN Last administered on 09/23/16 23:58; Admin Dose 1 TAB; Start 09/15/16 at 12:00 Lactobacillus Acidoph/Bulgaricus (Floranex) 1 tab BID PO Last administered on 11:02; Admin Dose 1 TAB; Start 09/15/16 at 21:00 Enoxaparin Sodium (Lovenox) 40 mg DAILY SC Last administered on 09/24/16 11:04 ; Admin Dose 40 MG; Start 09/16/16 at 15:00 Famotidine 20 mg 20 mg DAILY PO Last administered on 09/24/16 11:02; Admin Dose 20 MG; Start 09/16/16 at 15:00 Ceftriaxone Sodium (Rocephin) 50 ml @ 100 mls/hr Q24H IVPB Last administered on 09/23/16 20:31; Admin Dose 100 MLS/HR; Start 09/18/16 at 20:00 Insulin Glargine (Lantus) 5 unit HS SC Last administered on 09/23/16 20:43; Admin Dose 5 UNIT; Start 09/19/16 at 21:00 Metronidazole (Flagyl) 500 mg Q8 PO Last administered on 09/24/16 13:54; Admin Dose 500 MG; Start 09/19/16 at 14:00 Linezolid (Zyvox) 600 mg BID PO Last administered on 09/24/16 11:02; Admin Dose 600 MG; Start 09/20/16 at 09:00 Hydralazine HCl (Apresoline) 10 mg Q6H PRN IV SBP > 160 Last administered on 21:12; Admin Dose 10 MG; Start 09/21/16 at 21:30 BI VALLEJO MD Sep 24, 2016 14:09
--- NOTE | 2016-09-24 16:03 | RADRPT ---
PROCEDURE: XR Chest. CLINICAL INDICATION: Check PICC line position. TECHNIQUE: Single frontal view. COMPARISON: 09/15/2016. FINDINGS: There is a left arm PICC line with the tip in the lower superior vena cava. The lungs are clear. The heart size is normal. There is no pleural effusion. There is no pneumothorax. IMPRESSION: 1. Satisfactory position of left arm PICC line. 2. Otherwise normal chest radiograph. RPTAT: QQ .Chidi Mcnulty MD, MD Date Time Electronically viewed and signed by .Chidi Mcnulty MD, MD on 09/24/2016 16:03 .R/
--- NOTE | 2016-09-24 16:17 | RADRPT ---
PROCEDURE: US guidance for PICC line CLINICAL INDICATION: PICC line placement TECHNIQUE: Multiple real-time images were acquired of the patient's arm utilizing a high resolutio n transducer. This was performed by the PICC line nurse for venous access. COMPARISON: None FINDINGS: Ultrasound guidance for PICC line placement. IMPRESSION: Ultrasound guidance for PICC line placement. RPTAT: AA .Ezio Martinez MD, MD Date Time Electronically viewed and signed by .Ezio Martinez MD, on 09/24/2016 16:16 .S/
[2016-09-24] MEDS: CEFTRIAXONE 1 GM/50 ML (PMX) 50 ML IVPB SCH (17:24)
[2016-09-24] MEDS ORDERED: SOD CHLORIDE 0.9% 100 ML ONE (20:45)
== END 2016-09-24 19:29 | disposition home health service (06) | DRG 638 ==
LOC: PP2 09-15 02:30
PROVIDERS: ADMIT Internal Medicine; ATTEND Internal Medicine
PROC: 02HV33Z Insertion of Infusion Device into Superior Vena Cava, Percutaneous Approach (ICD-10-PCS; principal; 2016-09-24)
DX: E11.628 Type 2 diabetes mellitus with other skin complications (principal); L03.115 Cellulitis of right lower limb; L97.519 Non-pressure chronic ulcer of other part of right foot with unspecified severity; E11.51 Type 2 diabetes mellitus with diabetic peripheral angiopathy without gangrene; E11.42 Type 2 diabetes mellitus with diabetic polyneuropathy; E11.621 Type 2 diabetes mellitus with foot ulcer; A04.7 Enterocolitis due to Clostridium difficile; B95.2 Enterococcus as the cause of diseases classified elsewhere; B95.7 Other staphylococcus as the cause of diseases classified elsewhere; B96.4 Proteus (mirabilis) (morganii) as the cause of diseases classified elsewhere; Z89.622 Acquired absence of left hip joint; D64.9 Anemia, unspecified; F41.9 Anxiety disorder, unspecified; I10 Essential (primary) hypertension; F43.21 Adjustment disorder with depressed mood
CPT/HCPCS: 36569; 71010; 73630; 73718; 76937; 80048; 80053; 80061; 80202; 82306; 82565; 82962; 83036; 83735; 84100; 84145; 84443; 84520; 84703; 85025; 85610; 85651; 87040; 87070; 87075; 87081; 93005; 93926; 97162; 97530; J0360; J0692; J0696; J0743; J1650; J1815; J2060; J2270; J2405; J3370

== ENCOUNTER 2016-10-13 09:20 | Inpatient (IN) | payer BC ==
[~2016-10-13] VITALS: Ht 154.9 cm; Wt 50.1 kg
[~2016-10-13 09:20] MED LIST changes: +ACID1TAB14 PO; +CEFT1PIG2 IVPB; -GLIM4TAB PO; -GLIP-95 PO; +LINE600T6 PO; +METR500T14 PO; -OLME40TA14 PO
[2016-10-13 10:00] VITALS: BP 101/55; PULSE 66; RESP 16
[2016-10-13 10:24] VITALS: Ht 154.9 cm; Wt 50.1 kg
[2016-10-13 10:32] LABS: ADD SCAN DIFF NO
[2016-10-13 10:45] LABS: INR 1.14; PROTIME 14.6 Sec (12.2-14.2); PT RATIO 1.1
[2016-10-13 10:46] LABS: PARTIAL THROMBOPLASTIN TIME 30.9 Sec (25.0-35.0)
[2016-10-13 10:50] LABS: CALCIUM 8.7 mg/dl (8.4-10.2); CREATININE 0.41 mg/dl (0.44-1.00)
[2016-10-13 11:00] LABS: BASOPHILS % 0.2 % (0.0-2.0); EOSINOPHILS # 0.3 10^3/ul (0.0-0.5); HEMATOCRIT 27.5 % (37.0-47.0); LYMPHOCYTES # 0.8 10^3/ul (0.8-2.9); MEAN CORPUSCULAR HEMOGLOBIN 29.6 pg (29.0-33.0); MEAN CORPUSCULAR HGB CONC 32.7 g/dl (32.0-37.0); MEAN CORPUSCULAR VOLUME 90.5 fl (82.0-101.0); MEAN PLATELET VOLUME 10.3 fl (7.4-10.4); MONOCYTE # 0.5 10^3/ul (0.3-0.9); MONOCYTES % 10.3 % (0.0-11.0); NEUTROPHIL # 3.2 10^3/ul (1.6-7.5); NEUTROPHILS % 65.9 % (39.0-77.0); PLATELET COUNT 329 10^3/UL (140-415); RED BLOOD COUNT 3.04 10^6/ul (4.20-5.40); RED CELL DISTRIBUTION WIDTH 13.8 % (11.5-14.5); WHITE BLOOD COUNT 4.9 10^3/ul (4.8-10.8)
[2016-10-13] MEDS ORDERED: SIMVASTATIN PO (11:48)
[2016-10-13] MEDS ORDERED: GABA300C16 PO (11:48)
[2016-10-13 13:45] VITALS: BP 114/57; RESP 18
[2016-10-13] MEDS ORDERED: BISACODYL (EC) 5 MG TAB PO PRN (15:30)
[2016-10-13] MEDS ORDERED: DIPHENHYDRAMINE 25 MG CAP PO PRN (15:30)
[2016-10-13] MEDS ORDERED: NACL 0.9% 3 ML SYG IV SCH (15:30)
[2016-10-13] MEDS ORDERED: DOCUSATE SODIUM 100 MG CAP PO PRN (15:30)
[2016-10-13] MEDS ORDERED: ACETAMINOPHEN 650 MG SUPP PR PRN (15:30)
[2016-10-13] MEDS ORDERED: GLUCOSE GEL 15 GRAM TUBE PO PRN ×2 (16:00)
[2016-10-13] MEDS ORDERED: GLUCAGON 1 MG INJ IM PRN (16:00)
[2016-10-13] MEDS ORDERED: GLUCOSE GEL 15 GRAM TUBE BUCCAL PRN (16:00)
[2016-10-13] MEDS ORDERED: DEXTROSE 50% 50 ML SYRINGE IV PRN ×2 (16:00)
--- NOTE | 2016-10-13 16:11 | HP ---
DATE OF ADMISSION: 10/13/2016 CONSULTANTS: 1. JOAQUINA MCKEON MD. 2. MARIANA LING DPM. CHIEF COMPLAINT: Right foot cellulitis and gangrene. 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 She was seen and evaluated today by [facility] as same day surgery, possib le angioplasty and angiography, although it was found that patient has a left foot gangrene. Theref ore, she was transferred to [facility] for further evaluation and treatment. At t his time, patient denies having any chest pain, shortness of breath, nausea, vomiting or diarrhea. No headache, dizziness, lightheadedness. No change in visual acuity, diplopia, photophobia. No abd ominal pain. No dysuria, hematuria, urgency, incontinence. Positive for left foot pain for the pas t several days without any itchiness worsening of the erythema. Patient denies any sick contact, no recent travel history or any other discomfort. PAST MEDICAL AND SURGICAL HISTORY: As above per HPI. MEDICATIONS: 1. Aspirin. 2. Gabapentin. 3. Lantus. 4. Lisinopril. 5. Simvastatin. ALLERGIES: NO KNOWN DRUG ALLERGIES. FAMILY HISTORY: Positive for diabetes mellitus and hypertension. SOCIAL HISTORY: Negative x3 for smoking, alcohol, illicit drugs. She is wheelchair bound. REVIEW OF SYSTEMS: As above per HPI, otherwise 12 review of systems has been found to be negative. PHYSICAL EXAMINATION: VITAL SIGNS: Temperature 98, pulse 61, respiration 18, blood pressure 114/57, oxygen 100% in room a ir. GENERAL APPEARANCE: Patient is lying in bed comfortably without any distress. She is awake, alert, oriented. She is able to answer my questions properly. EYES AND ENT: Conjunctivae and lids are normal. Pupils are normal. Extraocular normal. Hearing g rossly normal. Lips are normal. Oral mucosa mildly dry. NECK: Supple. Trachea is midline. No lymphadenopathy. RESPIRATORY: Effort is normal. Clear to auscultate bilaterally. CARDIOVASCULAR: Normal S1, S2. Regular rhythm and rate. No murmur, no bruits, no edema. Peripher al pulses, radial pulses palpable. Cap refill is normal. CHEST: Normal expansion of thorax during inspiration. GASTROINTESTINAL: Abdomen is soft, nontender, nondistended. Bowel sounds present. No guarding, no rebound. GENITOURINARY: Deferred. MUSCULOSKELETAL: Upper extremity within normal limits. Right lower extremity: There is cellulitis and gangrene of the fourth and fifth toe. The patient is status post left AKA at the hip. NEUROLOGIC: Cranial nerves II through XII are grossly intact. PSYCHIATRIC: Normal judgment and insight. Alert and oriented x3. Mood and affect is normal. LABORATORY WORK: WBC 4.9, hemoglobin 9.0, hematocrit 27.5, platelets 329. Sodium 141, potassium 4. 0, chloride 104, bicarbonate 28, BUN 14, creatinine 0.41, glucose 121, calcium 8.7. PT 14.6, INR 1. 14. ASSESSMENT AND PLAN: 1. Right foot cellulitis and gangrene of the right lower extremity. Vascular surgeon and podiatry has been consulted. Patient has been started on prophylactic IV antibiotics, pain medication and fo llow up with vascular surgeon's recommendation for possible angiography and vein mapping other surgi bryanna intervention. 2. Diabetes mellitus. Patient has been placed on insulin sliding scale, low carbohydrate diet, Khanh tus. 3. Peripheral vascular disease. Continue statin. Follow lipid panel. Continue aspirin. 4. Essential hypertension, well controlled on medical management. 5. Diabetic neuropathy. Continue gabapentin. 6. For deep venous thrombosis prophylaxis, the patient is on aspirin and will follow up vascular [facility] for further recommendation. 7. For gastrointestinal prophylaxis, the patient has been placed on proton pump inhibitor. 8. We will continue to monitor patient closely. Further recommendations, management and treatment as per clinical course. Dictated By: GIUSEPPE BRITO MD PN/NTS Conf#: [id number] DID#: [id number]
[2016-10-13] MEDS: CEFTRIAXONE 1 GM/50 ML (PMX) 50 ML IVPB SCH (16:26)
--- NOTE | 2016-10-13 17:57 | CONS ---
Date/Time of Note Date/Time of Note DATE: 10/13/16 TIME: 17:55 Consultation Date/Type/Reason Admit Date/Time Dear Doctors: Ms. Gomes is a 50-year-old unfortunate female who had presented to us for vascular surgery evaluation. Her history entails uncontrolled diabetes in the past in which she had developed what seems to be a left lower extremity diabetic foot infection that progressed to becoming gas gangrene and requiring a tertiary care evaluation for an above-knee amputation which ended up being a left hip disarticulation. It was a very involved procedure in which she had required a skin grafting from the left lower abdominal quadrant in order to be able to close the wound. At the moment, she still has an area that still an open wound that she has been getting conservative daily wound care. She currently denies any purulent drainage, any redness, any fever, chills, nausea, vomiting, shortness of breath or chest pain. She has developed now right lower extremity fourth and fifth toe gangrene over the past few weeks. It seems that the patient had been evaluated recently for a right lower extremity foot infection that was treated with antibiotics and currently has a dry gangrene in that area. She does complain of rest pain and significant pain of where the gangrene is located and she is very concerned that she may lose her right lower extremity and therefore she has sought a second opinion. She had seen the outside vascular surgeon in which no further vascular interventions have been offered to her. Further, she has had history of previous right lower extremity endovascular intervention that was done in 2008; however, it is unclear what was done at outside hospital. The patient is also very emotional and crying at the bedside as she would like to have everything done by us to be able to preserve her limb and salvage her right lower extremity. The patient and family have declared that they would like to have everything done regardless of what it will take and she would rather instead of having any further amputation of the right lower extremity. Patient had underwent right lower extremity ultrasound evaluation in which she has monophasic flow from her mid superficial femoral artery all the way down to her pedal vessels. Further, she has 80% dependence on her own in which she uses her right lower extremity for transferring from bed to her wheelchair, from bed to the bathroom and being able to get around the house. Although, she has been weak she is quite mobile with her right lower extremity, therefore, she would like to have everything done in order to be able to preserve it. REVIEW OF SYSTEMS: A 12-point review performed and negative except what is mentioned in the HPI. PAST MEDICAL HISTORY: Entails diabetes, peripheral neuropathy, hypertension, hypercholesterolemia, left lower extremity gangrene. PAST SURGICAL HISTORY: Left hip disarticulation, multiple debridements, right lower extremity angiogram and intervention, right lower extremity gangrene, history of C. difficile, previous left lower extremity revascularization and thrombolysis procedures, history of ESBL infection. SOCIAL HISTORY: Denies tobacco, alcohol or illicit drug use. FAMILY HISTORY: Coronary artery disease and diabetes. PHYSICAL EXAMINATION: GENERAL: Alert and oriented x3, no apparent distress. HEENT: Normocephalic, atraumatic. PERRLA, EOMI. Mucosa moist. NECK: Supple. No carotid bruit. PULMONARY: Clear to auscultation bilaterally. No crackles. CARDIOVASCULAR: S1, S2 present. No murmurs. ABDOMEN: Soft, nontender, nondistended. Bowel sounds positive. Midline incision with surgical scar that is well healed. Bowel sounds positive. EXTREMITIES: Left lower extremity: There is area of left hip disarticulation surgical scar with the mid aspect of the wound that has good granulation tissue that is still healing. There is good epithelization and no pus or erythema identified. There is some excoriation from her dressings that seems to be related to tapes that are used. Right lower extremity: Palpable femoral pulse, seems to be a bit faint. Nonpalpable pedal pulse. Motor and sensory intact. Capillary refill 4 seconds. There is dependent rubor of the foot. There is a gangrene of the fourth toe and partial gangrene on the medial aspect of the fifth toe. ASSESSMENT AND PLAN: 1. Bilateral lower extremity atherosclerosis with gangrene: It seems the patient has developed a new right lower extremity gangrene in which it is a very complicated situation as the patient has had a left hip disarticulation and providing her with vascular interventions we may be a little bit limited. Upon our extensive discussion with the patient during our office visit the patient has been very emotional and has asked for anything that can be done to preserve her right lower extremity. Patient is quite dependent per her family and herself to about 80% with her right lower extremity in terms of being able to transfer and her mobility at home. We have provided her offer of conservative therapy for the wound care and eventual amputation if she has an infection that is threatening her life. We have mentioned that if she develops rest pain that it is intolerable for an amputation at that point. We have offered her possible right lower extremity angiogram to further delineate her tibioperoneal disease and evaluate the areas that have been found to be monophasic with ultrasound. I would also like to obtain a lower extremity vein mapping to better delineate the possibility of a conduit. I have spoken with the family that she may require a revascularization and they have agreed to have everything done, no matter the risks entailed. 2. Optimize vascular status (BP meds, diet, nutrition, exercise, sugar control , antiplatelets). 3. We will plan to obtain clearance from her insurance company for urgent angiogram to be able to perform our intervention. 4. Discussed findings, plan and management with the patient and she understands with a certified lubrication supervisor. Thank you for allowing us to partake in the care of your patient. Please call with any questions. Social History Smoking Status: Never smoker Exam/Review of Systems Vital Signs Vitals Vital Signs Date Time Temp Pulse Resp B/P Pulse Ox O2 Delivery O2 Flow Rate FiO2 10/13/16 13:45 98.0 61 18 114/57 100 10/13/16 10:00 Room Air Results Result Diagram: 10/13/16 1020 10/13/16 1020 Results 24 hrs Laboratory Tests Test 10/13/16 10:20 10/13/16 17:34 Activated Partial Thromboplast Time 30.9 Anion Gap 13 Basophils # 0.0 Basophils % 0.2 Bedside Glucose 121 188 Blood Urea Nitrogen 14 Calcium Level 8.7 Carbon Dioxide Level 28 Chloride Level 104 Creatinine 0.41 L Eosinophils # 0.3 Eosinophils % 6.0 Glucose Level 121 Hematocrit 27.5 L Hemoglobin 9.0 L INR International Normalized Ratio 1.14 Lymphocytes # 0.8 Lymphocytes % 17.0 Mean Corpuscular Hemoglobin 29.6 Mean Corpuscular Hemoglobin Concent 32.7 Mean Corpuscular Volume 90.5 Mean Platelet Volume 10.3 # Monocytes # 0.5 Monocytes % 10.3 Neutrophils # 3.2 Neutrophils % 65.9 Nucleated Red Blood Cells # 0.0 Nucleated Red Blood Cells % 0.0 Platelet Count 329 Potassium Level 4.0 Prothrombin Time 14.6 H Prothrombin Time Ratio 1.1 Red Blood Count 3.04 L Red Cell Distribution Width 13.8 Sodium Level 141 White Blood Count 4.9 # Medications Medications Current Medications Aspirin (Aspirin) 81 mg DAILY PO ; Start 10/14/16 at 09:00 Gabapentin (Neurontin) 300 mg TID PO ; Start 10/13/16 at 21:00 Insulin Glargine (Lantus) 5 unit HS SC ; Start 10/13/16 at 21:00 Lisinopril (Zestril) 10 mg DAILY PO ; Start 10/14/16 at 09:00 Atorvastatin Calcium (Lipitor) 10 mg HS PO ; Start 10/13/16 at 21:00 Ondansetron HCl (Zofran Inj) 4 mg Q6H PRN IV NAUSEA AND/OR VOMITING; Start at 15:30 Acetaminophen (Tylenol Tab) 650 mg Q6H PRN PO PAIN LEVEL 1-3 OR FEVER; Start at 15:30 Acetaminophen (Tylenol Supp) 650 mg Q6H PRN ND PAIN LEVEL 1-3 OR FEVER; Start 10/13/16 at 15:30 Oxycodone/ Acetaminophen (Percocet (5/ 325)) 1 tab Q6H PRN PO MODERATE PAIN LEVEL 4-6; Start 10/13/16 at 15:30 Morphine Sulfate (morphine) 1 mg Q4H PRN IV SEVERE PAIN LEVEL 7-10; Start 10/13 at 15:30 Docusate Sodium (Colace) 100 mg Q12H PRN PO CONSTIPATION; Start 10/13/16 at 15: 30 Bisacodyl (Dulcolax) 5 mg DAILY PRN PO CONSTIPATION; Start 10/13/16 at 15:30 Pantoprazole 40 mg 40 mg DAILY@06 PO ; Start 10/14/16 at 06:00 Ceftriaxone Sodium (Rocephin) 50 ml @ 100 mls/hr Q24H IVPB Last administered on 10/13/16t 16:26; Admin Dose 100 MLS/HR; Start 10/13/16 at 15:30 Diphenhydramine HCl (Benadryl) 25 mg Q6H PRN PO ITCHING; Start 10/13/16 at 15: 30 Miscellaneous Information 1 ea NOTE XX ; Start 10/13/16 at 16:00 Glucose (Glutose) 15 gm Q15M PRN PO DECREASED GLUCOSE; Start 10/13/16 at 16:00 Glucose (Glutose) 22.5 gm Q15M PRN PO DECREASED GLUCOSE; Start 10/13/16 at 16: 00 Dextrose (D50w Syringe) 25 ml Q15M PRN IV DECREASED GLUCOSE; Start 10/13/16 at 16:00 Dextrose (D50w Syringe) 50 ml Q15M PRN IV DECREASED GLUCOSE; Start 10/13/16 at 16:00 Glucagon (Glucagen) 1 mg Q15M PRN IM DECREASED GLUCOSE; Start 10/13/16 at 16:00 Glucose (Glutose) 15 gm Q15M PRN BUCCAL DECREASED GLUCOSE; Start 10/13/16 at 16 :00 JOAQUINA MCKEON MD Oct 13, 2016 17:57
[2016-10-13] MEDS: INSULIN ASPART [NOVOLOG] 3 ML PEN SC SCH ×2 (18:15→21:00)
[2016-10-13 19:38] VITALS: BP 172/76; RESP 18
[2016-10-13] MEDS: hydrALAzine 20 MG INJ IV PRN (19:56)
[2016-10-13] MEDS ORDERED: VANCOMYCIN IV PER PHARMACY XX SCH (20:00)
--- NOTE | 2016-10-13 20:31 | CONS ---
DATE OF ADMISSION: 10/13/2016 DATE OF CONSULTATION: 10/13/2016 TYPE OF CONSULTATION: Infectious disease. REASON FOR CONSULTATION: Antibiotic management. HISTORY OF PRESENT ILLNESS: Cat Gomes is a 50-year-old female who comes in with right foot eugenia lulitis and gangrene. Her past problems include: 1. Adult-onset diabetes mellitus. 2. Severe peripheral vascular disease. 3. Hypertension. 4. Dyslipidemia. 5. 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 6. Status post skin graft. The patient has been suffering from right foot cellulitis and abscess and worsening of the celluliti s. She was seen by Dr. Mckeon at same day surgery for possible angioplasty and angiography and w as found that the patient had right foot gangrene. Therefore, she was transferred to [facility] for further evaluation. The patient has left foot pain for several days without any itching o r worsening of the erythema. PAST SURGERY: Left AKA at the hip. PAST MEDICAL HISTORY: As outlined. FAMILY HISTORY: Positive for diabetes and hypertension. ALLERGIES: NONE TO PENICILLIN, SULFA, OR FOODS. MEDICATIONS: Per chart. REVIEW OF SYSTEMS: Noncontributory. PHYSICAL EXAMINATION: GENERAL: The patient is a well-developed, well-nourished female who is awake, responsive, in no acu te distress. VITAL SIGNS: Stable. She is afebrile. SKIN: Without generalized rash. HEENT: Within normal limits. NECK: Supple. LYMPH NODES: None palpable. LUNGS: Clear to P and A. HEART: Without murmur or gallop. ABDOMEN: Soft, nontender without organosplenomegaly or masses. EXTREMITIES: She is status post left AKA at the hip. She has right lower extremity cellulitis and gangrene of the 4th and 5th toes. RECTAL AND GENITAL: Deferred. NEUROLOGIC: No focal neurological abnormalities. ANCILLARY LABORATORY DATA: White count of 4.9, H and H of 9 and 27.5, platelet count 329,000. BUN and creatinine 14/0.41, glucose 121. HOSPITAL COURSE: The patient has right foot cellulitis. She was seen by Dr. Mckeon. The patien t was started on ceftriaxone. Her BUN and creatinine are 14/0.41. She was seen, of course, by Dr. Mckeon who notes that she had multiple debridements, right lower extremity angiogram and interven tion, right lower extremity gangrene, history of Clostridium difficile, previous left lower extremit y revascularization and thrombolysis procedure, history of ESBL infection, bilateral lower extremity atherosclerosis with gangrene, right lower extremity has femoral pulses, nonpalpable pedal pulses, capillary refill 4 seconds, dependent rubor gangrene of the fourth toe and partial gangrene of the m edial aspect of the fifth toe. PLAN: I am going to add vancomycin to her regimen. She is currently only on ceftriaxone. I will d ictate my findings to Dr. Brito and Dr. Mckeon. Dictated By: SAVANNA BRICEÑO MD, JD/NTS Conf#: [id number] DID#: [id number] CC: JOAQUINA MCKEON MD; GIUSEPPE BRITO MD;*End*
[2016-10-13] MEDS: GABAPENTIN 300 MG CAP PO SCH (20:49)
[2016-10-13] MEDS: ATORVASTATIN 10 MG TAB PO SCH (20:49)
[2016-10-13] MEDS: HEPARIN 5,000 UNIT/0.5 ML SYG SC SCH (20:52)
[2016-10-13] MEDS: INSULIN GLARGINE [LANtus] 3 ML PEN SC SCH (20:53)
[2016-10-13] MEDS: morphine 2 MG INJ IV PRN (20:59)
[2016-10-13 22:00] VITALS: BP 116/58; PULSE 70
[2016-10-13] MEDS ORDERED: VANCOMYCIN 1 GM in NS 250 ML IVPB ONE (22:00)
[2016-10-13] MEDS: OXYCODONE/ACETAMINOPHEN (5/325) TAB PO PRN (23:47)
[2016-10-13] MEDS: DEXTROSE 5%-0.45% NACL 1,000 ML IV SCH (23:50)
[2016-10-14 05:26] LABS: ADD SCAN DIFF NO
[2016-10-14] MEDS: morphine 2 MG INJ IV PRN ×2 (05:29→21:24)
[2016-10-14] MEDS: PANTOPRAZOLE (EC) 40 MG TAB PO SCH (05:30)
[2016-10-14 05:49] LABS: BASOPHILS % 0.2 % (0.0-2.0); EOSINOPHILS # 0.4 10^3/ul (0.0-0.5); EOSINOPHILS % 8.5 % (0.0-7.0); HEMATOCRIT 27.7 % (37.0-47.0); HEMOGLOBIN 8.9 g/dl (12.0-16.0); LYMPHOCYTES # 1.7 10^3/ul (0.8-2.9); LYMPHOCYTES % 37.4 % (15.0-51.0); MEAN CORPUSCULAR HEMOGLOBIN 29.6 pg (29.0-33.0); MEAN CORPUSCULAR HGB CONC 32.1 g/dl (32.0-37.0); MEAN PLATELET VOLUME 10.1 fl (7.4-10.4); MONOCYTE # 0.5 10^3/ul (0.3-0.9); MONOCYTES % 11.1 % (0.0-11.0); NEUTROPHILS % 42.4 % (39.0-77.0); PLATELET COUNT 348 10^3/UL (140-415); RED BLOOD COUNT 3.01 10^6/ul (4.20-5.40); RED CELL DISTRIBUTION WIDTH 13.6 % (11.5-14.5); WHITE BLOOD COUNT 4.6 10^3/ul (4.8-10.8)
[2016-10-14 06:02] LABS: POTASSIUM 3.9 mmol/L (3.5-5.1)
[2016-10-14 06:04] LABS: CREATININE 0.41 mg/dl (0.44-1.00)
[2016-10-14 06:05] LABS: CALCIUM 8.8 mg/dl (8.4-10.2)
[2016-10-14 06:06] LABS: CHOL/HDL RATIO 3.7 RATIO; MAGNESIUM 1.9 mg/dl (1.7-2.5)
[2016-10-14 07:43] VITALS: BP 97/52; RESP 16
[2016-10-14] MEDS: INSULIN ASPART [NOVOLOG] 3 ML PEN SC SCH ×4 (08:15→21:26)
[2016-10-14] MEDS: HEPARIN 5,000 UNIT/0.5 ML SYG SC SCH ×2 (09:00→21:26)
[2016-10-14] MEDS: ASPIRIN 81 MG TAB PO SCH (09:00)
[2016-10-14] MEDS: LISINOPRIL 10 MG TAB PO SCH (09:00)
[2016-10-14] MEDS: VANCOMYCIN 750 MG in SOD CHLORIDE 0.9% 150 ML IVPB SCH ×2 (09:32→21:23)
[2016-10-14] MEDS: GABAPENTIN 300 MG CAP PO SCH ×3 (09:34→21:23)
[2016-10-14] MEDS: CEFTRIAXONE 1 GM/50 ML (PMX) 50 ML IVPB SCH (15:05)
--- NOTE | 2016-10-14 15:12 | CONS ---
DATE OF ADMISSION: 10/13/2016 DATE OF CONSULTATION: 10/14/2016 TYPE OF CONSULTATION: Cardiology REASON FOR CONSULTATION: Preoperative evaluation. REQUESTING PHYSICIAN: Zhou Mckeon MD from the vascular surgery service. HISTORY OF PRESENT ILLNESS: Ms. Gomes is a 50-year-old female with a history of peripheral sherri rial disease, diabetes mellitus, hypertension, dyslipidemia, status post left AKA, who presented wit h right foot gangrenous changes. The patient seen by the vascular surgery service, Dr. Mckeon w ith plans for lower extremity angiogram and possible need for surgery. Given these findings, cardio logy consultation requested. At this time, patient denies chest pain, shortness of breath. PAST MEDICAL HISTORY: As above in HPI. MEDICATIONS CURRENTLY IN HOSPITAL: 1. Vancomycin. 2. Aspirin 81 mg daily. 3. Zestril 10 mg daily. 4. Protonix 40 mg daily. 5. Gabapentin 300 mg t.i.d. 6. Lantus 5 units subcutaneous at bedtime. 7. Lipitor 10 mg at bedtime. 8. Heparin 5000 subcutaneous b.i.d. 9. Hydralazine p.r.n. 10. Vancomycin p.r.n. 11. Insulin sliding scale. ALLERGIES: NO KNOWN DRUG ALLERGIES. SOCIAL HISTORY: No tobacco, ETOH or illicit drug use. FAMILY HISTORY: No history of sudden cardiac or early CAD. REVIEW OF SYSTEMS: As above in HPI. CONSTITUTIONAL: No fevers, chills. PULMONARY: No current shortness of breath. CARDIOVASCULAR: No current chest pain. GASTROINTESTINAL: No vomiting. GENITOURINARY: No hematuria. MUSCULOSKELETAL: Right lower extremity gangrenous changes. PSYCHIATRIC: No documented psychiatric history. NEUROLOGIC: No documented history of CVA. ENDOCRINE: Diabetes mellitus. PHYSICAL EXAMINATION: VITAL SIGNS: Temperature of 98.7, blood pressure low currently 97/52, pulse 67, respirations 16, sa turating 98%. GENERAL: The patient is alert, awake, in no acute distress. NECK: JVP approximately 8 to 9 cm water. CHEST: Fair air movement throughout. HEART: Regular rate and rhythm. Normal S1, S2, I/ systolic murmur, nondisplaced PMI. ABDOMEN: Positive bowel sounds, soft. EXTREMITIES: No edema. Difficult to palpate distal pulses at the right lower extremity. Left lowe r extremity is status post AKA. Right lower extremity with gangrenous changes. LABORATORY DATA: Most recently from today, white blood cell count 4.6, hemoglobin 8.9, platelet cou nt 348. Sodium 140, potassium 3.9, creatinine 1.4, BUN 15. LDL 94, HDL 44. INR of 1.1. IMAGING STUDIES: As above in HPI. No imaging studies for my review at this time. ELECTROCARDIOGRAM: Dated 09/15/2016, reveals normal sinus rhythm at a rate of 79 with left axis dev iation and nonspecific ST-T abnormalities. IMPRESSION: 1. Preoperative evaluation prior to possible lower extremity revascularization. 2. Abnormal electrocardiogram with T-wave flattening isolated to the aVL. 3. Hypertension with currently borderline hypotension. 4. History of dyslipidemia. 5. Diabetes mellitus. 6. Peripheral arterial disease with right lower extremity gangrenous changes. 7. Status post left [id number] amputation. 8. Anemia. RECOMMENDATIONS: 1. At this time, would check serial EKGs to assess for any significant ongoing changes, send tropon ins q.6h. x2 to ensure this patient's EKG abnormalities are chronic in nature and not due to any rec ent acute coronary syndrome. We will continue the patient's aspirin at this time prophylaxis cardiovascular events and we will continue the patient's Zestril as tolerated. 2. We will check a 2D echocardiogram to further assess patient's ejection fraction, wall motion and any major valve abnormalities. Given the patient's multiple cardiac risk factors, we will consider stress testing this patient prior to significant vascular surgery. Thank you for allowing me to take part in the care of this patient. I will continue to follow her v rolanda closely with you, with further recommendations to be made as the patient progresses through her inpatient hospital clinical course. Dictated By: KAYLEIGH REYNAGA/TRACE Conf#: [id number] DID#: [id number] CC: ZHOU MCKEON MD;*End*
--- NOTE | 2016-10-14 15:15 | PN ---
DATE: 10/14/2016 SUBJECTIVE: No acute changes. The patient is alert, sitting up in bed, looks comfortable, no fever s. WBC 4.6, no shift, no bands. BUN 15, creatinine 0.41. ANTIMICROBIALS: 1. Vancomycin. 2. Rocephin. PHYSICAL EXAMINATION: GENERAL: This is a well-nourished, well-developed, middle-aged woman who is alert, in no d istress. HEENT: Head atraumatic, normocephalic. Sclerae anicteric. Buccal mucosa dry. NECK: Supple. CHEST: Rise symmetrical. Breath sounds diminished to bases. HEART: S1, S2. ABDOMEN: Soft. Bowel tones present. EXTREMITIES: With right foot gangrenous changes. ASSESSMENT: 1. Right foot cellulitis with gangrene. 2. Peripheral vascular disease. 3. Hypertension. 4. 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 PLAN: The patient remains stable. Pending angiogram. Continue present care, antibiotics. Follow vascular recommendations. Dictated By: KATHERYN RINALDI TRADING ANALYST for SAVANNA ANN/TRACE Conf#: [id number] DID#: [id number]
--- NOTE | 2016-10-14 15:18 | RADRPT ---
PROCEDURE: Right lower extremity venous mapping. CLINICAL INDICATION: Right lower extremity gangrene. TECHNIQUE: The greater saphenous vein was evaluated on the right side with ultrasound in the axial and sagittal planes. Diameter of the veins were determined as indicated below. COMPARISON: No prior studies are available for comparison. FINDINGS: Right greater saphenous vein: At groin: 0.50 cm. Upper thigh: 0.35 cm. Mid thigh: 0.24 cm. Lower thigh: 0.15 cm. At knee: 0.15 cm. Upper calf: 0.17 cm. Mid calf: 0.11 cm. Ankle: 0.11 cm. The right greater saphenous vein demonstrates normal compressibility with no thrombus or occlusion. IMPRESSION: 1. Diameter of right greater saphenous vein as indicated above. 2. No thrombosis visualized. RPTAT: QQ .Chidi Mcnulty MD, Date Time Electronically viewed and signed by .Chidi Mcnulty MD, on 10/14/2016 15:18 .R/
[2016-10-14 15:35] LABS: CHOL/HDL RATIO 3.5 RATIO
--- NOTE | 2016-10-14 17:01 | PN ---
Date/Time of Note Date/Time of Note DATE: 10/14/16 TIME: 16:59 Assessment/Plan VTE Prophylaxis VTE Prophylaxis Intervention: other Lines/Catheters IV Catheter Type (from Nrs): PICC Line Central line still needed: Yes Assessment/Plan Chief Complaint/Hosp Course ASSESSMENT AND PLAN: 1. Right foot cellulitis and gangrene of the right lower extremity. Vascular surgeon and podiatry has been consulted. Continue prophylactic IV antibiotics, pain medication and follow up with vascular surgeon's recommendation for possible angiography and vein mapping vs other surgical intervention. 2. Diabetes mellitus. Continue insulin sliding scale, low carbohydrate diet, Lantus. 3. Peripheral vascular disease. Continue statin and aspirin. 4. Essential hypertension, well controlled on medical management. 5. Diabetic neuropathy. Continue gabapentin. 6. For deep venous thrombosis prophylaxis, the patient is on aspirin and will follow up vascular surgery for further recommendation. 7. For gastrointestinal prophylaxis, the patient has been placed on proton pump inhibitor. We will continue to monitor patient closely. Further recommendations, management and treatment as per clinical course. Problems: Subjective 24 Hr Interval Summary Free Text/Dictation No acute changes Continue to have right foot discomfort No nausea vomiting diarrhea Exam/Review of Systems Vital Signs Vitals Vital Signs Date Time Temp Pulse Resp B/P Pulse Ox O2 Delivery O2 Flow Rate FiO2 10/14/16 07:43 98.7 67 16 97/52 99 10/13/16 10:00 Room Air Intake and Output 10/13/16 10/13/16 10/14/16 15:00 23:00 07:00 Intake Total 630 ml 630 ml Balance 630 ml 630 ml Exam General: The patient is well-developed, Not in acute distress. HEENT: Atraumatic, normocephalic. The pupils are equal and round . Neck: Supple with full range of motion. Chest: Normal expansion of the thorax during inspiration Lungs: Clear to auscultation bilaterally Heart: Normal S1-S2, Regular rhythm and rate. Abdomen: Soft , nontender, nondistended , bowel sounds are present. Extremities: Right foot fourth and fifth toe gangrene, status post left foot AKA , no edema no cyanosis Neurologic: Normal mental status,The patient is awake, alert and oriented . Results Result Diagram: 10/14/16 0455 10/14/16 0455 Results 24 hrs Laboratory Tests Test 10/13/16 17:34 10/13/16 20:50 10/14/16 04:55 10/14/16 08:14 Bedside Glucose 188 140 98 Anion Gap 13 Basophils # 0.0 Basophils % 0.2 Blood Urea Nitrogen 15 Calcium Level 8.8 Carbon Dioxide Level 28 Chloride Level 103 Cholesterol Level 151 Cholesterol/HDL Ratio 3.5 Creatinine 0.41 L Eosinophils # 0.4 Eosinophils % 8.5 H Glucose Level 100 HDL Cholesterol 43 Hematocrit 27.7 L Hemoglobin 8.9 L Hemoglobin A1c 6.9 H LDL Cholesterol, Calculated 83 Lymphocytes # 1.7 Lymphocytes % 37.4 Magnesium Level 1.9 Mean Corpuscular Hemoglobin 29.6 Mean Corpuscular Hemoglobin Concent 32.1 Mean Corpuscular Volume 92.0 Mean Platelet Volume 10.1 Monocytes # 0.5 Monocytes % 11.1 H Neutrophils # 2.0 Neutrophils % 42.4 Nucleated Red Blood Cells # 0.0 Nucleated Red Blood Cells % 0.0 Platelet Count 348 Potassium Level 3.9 Red Blood Count 3.01 L Red Cell Distribution Width 13.6 Sodium Level 140 Triglycerides Level 124 White Blood Count 4.6 L Test 10/14/16 12:02 Bedside Glucose 111 Medications Medications Current Medications Aspirin (Aspirin) 81 mg DAILY PO ; Start 10/14/16 at 09:00 Gabapentin (Neurontin) 300 mg TID PO Last administered on 10/14/16 14:14; Admin Dose 300 MG; Start 10/13/16 at 21:00 Insulin Glargine (Lantus) 5 unit HS SC Last administered on 10/13/16 20:53; Admin Dose 5 UNIT; Start 10/13/16 at 21:00 Lisinopril (Zestril) 10 mg DAILY PO ; Start 10/14/16 at 09:00 Atorvastatin Calcium (Lipitor) 10 mg HS PO Last administered on 10/13/16 20:49 ; Admin Dose 10 MG; Start 10/13/16 at 21:00 Ondansetron HCl (Zofran Inj) 4 mg Q6H PRN IV NAUSEA AND/OR VOMITING; Start at 15:30 Acetaminophen (Tylenol Tab) 650 mg Q6H PRN PO PAIN LEVEL 1-3 OR FEVER; Start at 15:30 Acetaminophen (Tylenol Supp) [address] PAIN LEVEL 1-3 OR FEVER; Start 10/13/16 at 15:30 Oxycodone/ Acetaminophen (Percocet (5/ 325)) 1 tab Q6H PRN PO MODERATE PAIN LEVEL 4-6 Last administered on 10/13/16 23:47; Admin Dose 1 TAB; Start at 15:30 Morphine Sulfate (morphine) 1 mg Q4H PRN IV SEVERE PAIN LEVEL 7-10 Last administered on 10/14/16 05:29; Admin Dose 1 MG; Start 10/13/16 at 15:30 Docusate Sodium (Colace) 100 mg Q12H PRN PO CONSTIPATION; Start 10/13/16 at 15: 30 Bisacodyl (Dulcolax) 5 mg DAILY PRN PO CONSTIPATION; Start 10/13/16 at 15:30 Pantoprazole 40 mg 40 mg DAILY@06 PO ; Start 10/14/16 at 06:00 Ceftriaxone Sodium (Rocephin) 50 ml @ 100 mls/hr Q24H IVPB Last administered on 10/14/16 15:05; Admin Dose 100 MLS/HR; Start 10/13/16 at 15:30 Diphenhydramine HCl (Benadryl) 25 mg Q6H PRN PO ITCHING; Start 10/13/16 at 15: 30 Miscellaneous Information 1 ea NOTE XX ; Start 10/13/16 at 16:00 Glucose (Glutose) 15 gm Q15M PRN PO DECREASED GLUCOSE; Start 10/13/16 at 16:00 Glucose (Glutose) 22.5 gm Q15M PRN PO DECREASED GLUCOSE; Start 10/13/16 at 16: 00 Dextrose (D50w Syringe) 25 ml Q15M PRN IV DECREASED GLUCOSE; Start 10/13/16 at 16:00 Dextrose (D50w Syringe) 50 ml Q15M PRN IV DECREASED GLUCOSE; Start 10/13/16 at 16:00 Glucagon (Glucagen) 1 mg Q15M PRN IM DECREASED GLUCOSE; Start 10/13/16 at 16:00 Glucose 15 gm 15 gm Q15M PRN BUCCAL DECREASED GLUCOSE; Start 10/13/16 at 16:00 Dextrose/Sodium Chloride (D5-1/2ns) 1,000 ml @ 50 mls/hr Q20H IV Last administered on 10/13/16 23:50; Admin Dose 50 MLS/HR; Start 10/14/16 at 00:00 Heparin Sodium (Porcine) (Heparin (5000 Units/0.5 ml)) 5,000 unit BID SC Last administered on 10/13/16 20:52; Admin Dose 5,000 UNIT; Start 10/13/16 at 21:00 Hydralazine HCl 10 mg 10 mg Q6H PRN IV SBP >160 Last administered on 10/13/16 19:56; Admin Dose 10 MG; Start 10/13/16 at 20:00 Vancomycin HCl/ Sodium Chloride (Vancocin/NS) 150 ml @ 75 mls/hr Q12H IVPB Last administered on 10/14/16 09:32; Admin Dose 75 MLS/HR; Start 10/14/16 at 10 :00 Miscellaneous Information (*Rx Drug Level Order Reminder*) VANCOMYCIN TROUGH AT 0900 ONCE ONCE XX ; Start 10/15/16 at 09:00; Stop 10/15/16 at 09:01 GIUSEPPE BRITO MD Oct 14, 2016 17:01
[2016-10-14 19:22] VITALS: BP 127/60; RESP 18
[2016-10-14] MEDS: ATORVASTATIN 10 MG TAB PO SCH (21:23)
[2016-10-14] MEDS: INSULIN GLARGINE [LANtus] 3 ML PEN SC SCH (21:27)
[2016-10-14] MEDS: OXYCODONE/ACETAMINOPHEN (5/325) TAB PO PRN (22:57)
[2016-10-15] MEDS: morphine 2 MG INJ IV PRN ×2 (01:07→06:46)
[2016-10-15 05:43] LABS: ADD SCAN DIFF NO
[2016-10-15 05:51] LABS: BASOPHILS % 0.1 % (0.0-2.0); EOSINOPHILS # 0.5 10^3/ul (0.0-0.5); EOSINOPHILS % 5.9 % (0.0-7.0); HEMATOCRIT 27.9 % (37.0-47.0); HEMOGLOBIN 9.1 g/dl (12.0-16.0); LYMPHOCYTES # 1.2 10^3/ul (0.8-2.9); LYMPHOCYTES % 14.4 % (15.0-51.0); MEAN CORPUSCULAR HEMOGLOBIN 29.9 pg (29.0-33.0); MEAN CORPUSCULAR HGB CONC 32.6 g/dl (32.0-37.0); MEAN CORPUSCULAR VOLUME 91.8 fl (82.0-101.0); MEAN PLATELET VOLUME 10.4 fl (7.4-10.4); MONOCYTE # 0.7 10^3/ul (0.3-0.9); MONOCYTES % 8.4 % (0.0-11.0); NEUTROPHIL # 5.7 10^3/ul (1.6-7.5); PLATELET COUNT 357 10^3/UL (140-415); RED BLOOD COUNT 3.04 10^6/ul (4.20-5.40); RED CELL DISTRIBUTION WIDTH 13.8 % (11.5-14.5); WHITE BLOOD COUNT 8.1 10^3/ul (4.8-10.8)
[2016-10-15] MEDS: PANTOPRAZOLE (EC) 40 MG TAB PO SCH (05:56)
[2016-10-15 06:18] LABS: POTASSIUM 3.5 mmol/L (3.5-5.1)
[2016-10-15 06:21] LABS: CREATININE 0.46 mg/dl (0.44-1.00)
[2016-10-15 06:22] LABS: CALCIUM 8.6 mg/dl (8.4-10.2); MAGNESIUM 1.8 mg/dl (1.7-2.5)
[2016-10-15 07:24] VITALS: BP 85/49; RESP 14
[2016-10-15] MEDS: GABAPENTIN 300 MG CAP PO SCH ×3 (07:40→20:21)
[2016-10-15] MEDS: ASPIRIN 81 MG TAB PO SCH (07:40)
[2016-10-15] MEDS: LISINOPRIL 10 MG TAB PO SCH (07:40)
[2016-10-15] MEDS: INSULIN ASPART [NOVOLOG] 3 ML PEN SC SCH ×4 (07:42→20:31)
[2016-10-15] MEDS: HEPARIN 5,000 UNIT/0.5 ML SYG SC SCH ×2 (07:47→20:29)
[2016-10-15] MEDS: VANCOMYCIN 750 MG in SOD CHLORIDE 0.9% 150 ML IVPB SCH ×2 (10:30→22:54)
[2016-10-15] MEDS ORDERED: REGADENOSON 0.4 MG/5 ML SYG ONE (11:23)
--- NOTE | 2016-10-15 11:32 | CONS ---
Date/Time of Note Date/Time of Note DATE: 10/15/16 TIME: 11:28 Assessment/Plan Assessment/Plan Chief Complaint/Hosp Course IMPRESSION: 1. Preoperative evaluation prior to possible lower extremity revascularization. 2. Abnormal electrocardiogram with T-wave flattening isolated to the aVL.- negative troponin x 3 3. Hypertension with currently borderline hypotension. 4. History of dyslipidemia. 5. Diabetes mellitus. 6. Peripheral arterial disease with right lower extremity gangrenous changes. 7. Status post left [id number] amputation. 8. Anemia. Recc: -Tele -Continue asa -Continue statin -Continue ACEI -Lexiscan stress test today Problems: Consultation Date/Type/Reason Admit Date/Time Oct 13, 2016 at 11:20 Initial Consult Date 10/14/2016 Type of Consultation: Cardiology Reason for Consultation Pre-op Referring Provider: JOAQUINA MCKEON MD Exam/Review of Systems Vital Signs Vitals Vital Signs Date Time Temp Pulse Resp B/P Pulse Ox O2 Delivery O2 Flow Rate FiO2 10/15/16 07:24 98.7 73 14 85/49 96 10/13/16 10:00 Room Air Intake and Output 10/14/16 10/14/16 10/15/16 15:00 23:00 07:00 Intake Total 700 ml 200 ml Output Total 1200 ml 300 ml Balance -500 ml -100 ml Exam Review of Systems: CONSTITUTIONAL: No fevers, chills. PULMONARY: No sob CARDIOVASCULAR: No chest pain/palpitations GASTROINTESTINAL: No nausea/vomiting. GENITOURINARY: No hematuria/dysuria. MUSCULOSKELETAL: No myagias/arthalgias. PSYCHIATRIC: The patient denies depression. NEUROLOGIC: No weakness Constitutional: alert Psych: no complaints ENMT: mucosa pink and moist Neck: jvd, supple Respiratory: diminished breath sounds (at bases/B) Cardiovascular: regular rate and rhythm Gastrointestinal: non-tender, soft Musculoskeletal: muscle tone (normal) Extremities: edema (None) Neurological: other (No focal deficits) Results Result Diagram: 10/15/16 0505 10/15/16 0505 Results 24 hrs Laboratory Tests Test 10/14/16 12:02 10/14/16 17:07 10/14/16 18:30 10/14/16 20:35 Bedside Glucose 111 97 223 H Troponin I 0.019 Test 10/15/16 00:30 10/15/16 02:14 10/15/16 05:05 10/15/16 07:41 Troponin I < 0.012 0.015 Bedside Glucose 121 103 Anion Gap 14 Basophils # 0.0 Basophils % 0.1 Blood Urea Nitrogen 13 Calcium Level 8.6 Carbon Dioxide Level 28 Chloride Level 102 Creatinine 0.46 Eosinophils # 0.5 Eosinophils % 5.9 Glucose Level 89 Hematocrit 27.9 L Hemoglobin 9.1 L Lymphocytes # 1.2 Lymphocytes % 14.4 L Magnesium Level 1.8 Mean Corpuscular Hemoglobin 29.9 Mean Corpuscular Hemoglobin Concent 32.6 Mean Corpuscular Volume 91.8 Mean Platelet Volume 10.4 Monocytes # 0.7 Monocytes % 8.4 Neutrophils # 5.7 Neutrophils % 71.0 Nucleated Red Blood Cells # 0.0 Nucleated Red Blood Cells % 0.0 Platelet Count 357 Potassium Level 3.5 Red Blood Count 3.04 L Red Cell Distribution Width 13.8 Sodium Level 140 White Blood Count 8.1 # Test 10/15/16 08:50 Vancomycin Level Trough 11.4 Medications Medications Current Medications Aspirin (Aspirin) 81 mg DAILY PO Last administered on 10/15/16 07:40; Admin Dose 81 MG; Start 10/14/16 at 09:00 Gabapentin (Neurontin) 300 mg TID PO Last administered on 10/15/16 07:40; Admin Dose 300 MG; Start 10/13/16 at 21:00 Insulin Glargine (Lantus) 5 unit HS SC Last administered on 10/14/16 21:27; Admin Dose 5 UNIT; Start 10/13/16 at 21:00 Lisinopril (Zestril) 10 mg DAILY PO ; Start 10/14/16 at 09:00 Atorvastatin Calcium (Lipitor) 10 mg HS PO Last administered on 10/14/16 21:23 ; Admin Dose 10 MG; Start 10/13/16 at 21:00 Ondansetron HCl (Zofran Inj) 4 mg Q6H PRN IV NAUSEA AND/OR VOMITING; Start at 15:30 Acetaminophen (Tylenol Tab) 650 mg Q6H PRN PO PAIN LEVEL 1-3 OR FEVER; Start at 15:30 Acetaminophen (Tylenol Supp) 650 mg Q6H PRN [place] PAIN LEVEL 1-3 OR FEVER; Start 10/13/16 at 15:30 Oxycodone/ Acetaminophen (Percocet (5/ 325)) 1 tab Q6H PRN PO MODERATE PAIN LEVEL 4-6 Last administered on 10/14/16 22:57; Admin Dose 1 TAB; Start at 15:30 Morphine Sulfate (morphine) 1 mg Q4H PRN IV SEVERE PAIN LEVEL 7-10 Last administered on 10/15/16 06:46; Admin Dose 1 MG; Start 10/13/16 at 15:30 Docusate Sodium (Colace) 100 mg Q12H PRN PO CONSTIPATION; Start 10/13/16 at 15: 30 Bisacodyl (Dulcolax) 5 mg DAILY PRN PO CONSTIPATION; Start 10/13/16 at 15:30 Pantoprazole 40 mg 40 mg DAILY@06 PO ; Start 10/14/16 at 06:00 Ceftriaxone Sodium (Rocephin) 50 ml @ 100 mls/hr Q24H IVPB Last administered on 10/14/16 15:05; Admin Dose 100 MLS/HR; Start 10/13/16 at 15:30 Diphenhydramine HCl (Benadryl) 25 mg Q6H PRN PO ITCHING; Start 10/13/16 at 15: 30 Miscellaneous Information 1 ea NOTE XX ; Start 10/13/16 at 16:00 Glucose (Glutose) 15 gm Q15M PRN PO DECREASED GLUCOSE; Start 10/13/16 at 16:00 Glucose (Glutose) 22.5 gm Q15M PRN PO DECREASED GLUCOSE; Start 10/13/16 at 16: 00 Dextrose (D50w Syringe) 25 ml Q15M PRN IV DECREASED GLUCOSE; Start 10/13/16 at 16:00 Dextrose (D50w Syringe) 50 ml Q15M PRN IV DECREASED GLUCOSE; Start 10/13/16 at 16:00 Glucagon (Glucagen) 1 mg Q15M PRN IM DECREASED GLUCOSE; Start 10/13/16 at 16:00 Glucose 15 gm 15 gm Q15M PRN BUCCAL DECREASED GLUCOSE; Start 10/13/16 at 16:00 Dextrose/Sodium Chloride (D5-1/2ns) 1,000 ml @ 50 mls/hr Q20H IV Last administered on 10/13/16 23:50; Admin Dose 50 MLS/HR; Start 10/14/16 at 00:00 Heparin Sodium (Porcine) (Heparin (5000 Units/0.5 ml)) 5,000 unit BID SC Last administered on 10/15/16 07:47; Admin Dose 5,000 UNIT; Start 10/13/16 at 21:00 Hydralazine HCl 10 mg 10 mg Q6H PRN IV SBP >160 Last administered on 10/13/16 19:56; Admin Dose 10 MG; Start 10/13/16 at 20:00 Vancomycin HCl/ Sodium Chloride (Vancocin/NS) 150 ml @ 75 mls/hr Q12H IVPB Last administered on 10/15/16 10:30; Admin Dose 75 MLS/HR; Start 10/14/16 at 10 :00 KAYLEIGH NORIEGA Oct 15, 2016 11:32
--- NOTE | 2016-10-15 13:25 | RADRPT ---
PROCEDURE: Nuclear medicine myocardial perfusion scan CLINICAL INDICATION: Chest pain TECHNIQUE: 28.4 mCi of technetium 99m Cardiolite was administered for the stress study. 9.5 mCi o f technetium 99m Cardiolite was administered for the resting study. The patient was stressed with 0. 4 mg of Lexiscan. Images were reviewed in the short axis, vertical long axis, and horizontal long a xis views. Wall motion was assessed and ejection fraction was calculated as well. Images were revie wed on a high-resolution PACS workstation. COMPARISON: None available FINDINGS: Left ventricular size is within normal limits. There is moderate soft tissue and bowel attenuation artifact. The stress tomographic images demonstrate a normal pattern of perfusion. The resting chris ographic images demonstrate a similar pattern. There is no evidence for reversible ischemia. Wall motion is normal. The ejection fraction is calculated at 74%. IMPRESSION: 1. Good quality negative myocardial perfusion scan. 2. There is no evidence for reversible ischemia. 3. Normal wall motion with normal ejection fraction of 74%. RPTAT: HMJB .Jose Hill MD, MD Date Time Electronically viewed and signed by .Jose Hill MD, MD on 10/15/2016 13:24 .B/
--- NOTE | 2016-10-15 14:49 | CARRPT ---
DATE OF PROCEDURE: 10/15/2016 PROCEDURE: Lexiscan Cardiolite stress test, electrocardiogram portion REASON FOR STRESS TESTING: Chest pain, assess for ischemia. BASELINE VITAL SIGNS AND ELECTROCARDIOGRAM: Pulse 69, blood pressure 132/61. Electrocardiogram was normal sinus rhythm, rate of 69 with left axis deviation, left anterior fascicular block, low volta ge in the limb leads and T-wave flattening in inferior leads. PROCEDURE: The patient underwent standard Lexiscan infusion protocol over 10 seconds followed by ra diolabeled tracer. The patient's test was stopped due to completion of protocol. Maximal achieved blood pressure during the test 104/55. Maximal heart rate during the test 87. ELECTROCARDIOGRAM FINDINGS: The patient did not develop any new Lexiscan-induced ST or T-wave jiang es from baseline abnormalities. The patient had rare PVCs during stress testing. SYMPTOMS: The patient had mild shortness breath during stress testing that resolved in recovery. N o chest pain. IMPRESSION: 1. No Lexiscan-induced ST or T-wave changes from baseline abnormalities that are diagnostic for car diac ischemia. 2. Complaints of shortness breath during stress testing resolved in recovery. 3. Rare premature ventricular contractions during stress testing. 4. Report of nuclear images to follow in separate dictation. Dictated By: KAYLEIGH REYNAGA/TRACE Conf#: [id number] DID#: [id number] CC: JOAQUINA MCKEON MD;*EndCC*
--- NOTE | 2016-10-15 15:29 | CONS ---
Date/Time of Note Date/Time of Note DATE: 10/15/16 TIME: 15:28 Assessment/Plan Assessment/Plan Chief Complaint/Hosp Course SUBJECTIVE: No acute changes. The patient is alert, sitting up in bed, looks comfortable, no fevers. ANTIMICROBIALS: 1. Vancomycin. 2. Rocephin. PHYSICAL EXAMINATION: GENERAL: This is a well-nourished, well-developed, middle-aged woman who is alert, in no distress. HEENT: Head atraumatic, normocephalic. Sclerae anicteric. Buccal mucosa dry. NECK: Supple. CHEST: Rise symmetrical. Breath sounds diminished to bases. HEART: S1, S2. ABDOMEN: Soft. Bowel tones present. EXTREMITIES: With right foot gangrenous changes. ASSESSMENT: 1. Right foot cellulitis with gangrene. 2. Peripheral vascular disease. 3. Hypertension. 4. 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 PLAN: The patient remains stable. Continue present care, antibiotics. Follow vascular recommendations. Cardiac clearance DW staff Problems: Consultation Date/Type/Reason Admit Date/Time Oct 14, 2016 at 16:41 Initial Consult Date Type of Consultation: ID Referring Provider: JOAQUINA MCKEON MD Exam/Review of Systems Vital Signs Vitals Vital Signs Date Time Temp Pulse Resp B/P Pulse Ox O2 Delivery O2 Flow Rate FiO2 10/15/16 07:24 98.7 73 14 85/49 96 10/13/16 10:00 Room Air Intake and Output 10/14/16 10/14/16 10/15/16 15:00 23:00 07:00 Intake Total 700 ml 200 ml Output Total 1200 ml 300 ml Balance -500 ml -100 ml Results Result Diagram: 10/15/16 0505 10/15/16 0505 Results 24 hrs Laboratory Tests Test 10/14/16 17:07 10/14/16 18:30 10/14/16 20:35 10/15/16 00:30 Bedside Glucose 97 223 H Troponin I 0.019 < 0.012 Test 10/15/16 02:14 10/15/16 05:05 10/15/16 07:41 10/15/16 08:50 Bedside Glucose 121 103 Anion Gap 14 Basophils # 0.0 Basophils % 0.1 Blood Urea Nitrogen 13 Calcium Level 8.6 Carbon Dioxide Level 28 Chloride Level 102 Creatinine 0.46 Eosinophils # 0.5 Eosinophils % 5.9 Glucose Level 89 Hematocrit 27.9 L Hemoglobin 9.1 L Lymphocytes # 1.2 Lymphocytes % 14.4 L Magnesium Level 1.8 Mean Corpuscular Hemoglobin 29.9 Mean Corpuscular Hemoglobin Concent 32.6 Mean Corpuscular Volume 91.8 Mean Platelet Volume 10.4 Monocytes # 0.7 Monocytes % 8.4 Neutrophils # 5.7 Neutrophils % 71.0 Nucleated Red Blood Cells # 0.0 Nucleated Red Blood Cells % 0.0 Platelet Count 357 Potassium Level 3.5 Red Blood Count 3.04 L Red Cell Distribution Width 13.8 Sodium Level 140 Troponin I 0.015 White Blood Count 8.1 # Vancomycin Level Trough 11.4 Medications Medications Current Medications Aspirin (Aspirin) 81 mg DAILY PO Last administered on 10/15/16 07:40; Admin Dose 81 MG; Start 10/14/16 at 09:00 Gabapentin (Neurontin) 300 mg TID PO Last administered on 10/15/16 13:20; Admin Dose 300 MG; Start 10/13/16 at 21:00 Insulin Glargine (Lantus) 5 unit HS SC Last administered on 10/14/16 21:27; Admin Dose 5 UNIT; Start 10/13/16 at 21:00 Lisinopril (Zestril) 10 mg DAILY PO ; Start 10/14/16 at 09:00 Atorvastatin Calcium (Lipitor) 10 mg HS PO Last administered on 10/14/16 21:23 ; Admin Dose 10 MG; Start 10/13/16 at 21:00 Ondansetron HCl (Zofran Inj) 4 mg Q6H PRN IV NAUSEA AND/OR VOMITING; Start at 15:30 Acetaminophen (Tylenol Tab) 650 mg Q6H PRN PO PAIN LEVEL 1-3 OR FEVER; Start at 15:30 Acetaminophen (Tylenol Supp) 650 mg Q6H PRN IN PAIN LEVEL 1-3 OR FEVER; Start 10/13/16 at 15:30 Oxycodone/ Acetaminophen (Percocet (5/ 325)) 1 tab Q6H PRN PO MODERATE PAIN LEVEL 4-6 Last administered on 10/14/16 22:57; Admin Dose 1 TAB; Start at 15:30 Morphine Sulfate (morphine) 1 mg Q4H PRN IV SEVERE PAIN LEVEL 7-10 Last administered on 10/15/16 06:46; Admin Dose 1 MG; Start 10/13/16 at 15:30 Docusate Sodium (Colace) 100 mg Q12H PRN PO CONSTIPATION; Start 10/13/16 at 15: 30 Bisacodyl (Dulcolax) 5 mg DAILY PRN PO CONSTIPATION; Start 10/13/16 at 15:30 Pantoprazole 40 mg 40 mg DAILY@06 PO ; Start 10/14/16 at 06:00 Ceftriaxone Sodium (Rocephin) 50 ml @ 100 mls/hr Q24H IVPB Last administered on 10/14/16 15:05; Admin Dose 100 MLS/HR; Start 10/13/16 at 15:30 Diphenhydramine HCl (Benadryl) 25 mg Q6H PRN PO ITCHING; Start 10/13/16 at 15: 30 Miscellaneous Information 1 ea NOTE XX ; Start 10/13/16 at 16:00 Glucose (Glutose) 15 gm Q15M PRN PO DECREASED GLUCOSE; Start 10/13/16 at 16:00 Glucose (Glutose) 22.5 gm Q15M PRN PO DECREASED GLUCOSE; Start 10/13/16 at 16: 00 Dextrose (D50w Syringe) 25 ml Q15M PRN IV DECREASED GLUCOSE; Start 10/13/16 at 16:00 Dextrose (D50w Syringe) 50 ml Q15M PRN IV DECREASED GLUCOSE; Start 10/13/16 at 16:00 Glucagon (Glucagen) 1 mg Q15M PRN IM DECREASED GLUCOSE; Start 10/13/16 at 16:00 Glucose 15 gm 15 gm Q15M PRN BUCCAL DECREASED GLUCOSE; Start 10/13/16 at 16:00 Dextrose/Sodium Chloride (D5-1/2ns) 1,000 ml @ 50 mls/hr Q20H IV Last administered on 10/13/16 23:50; Admin Dose 50 MLS/HR; Start 10/14/16 at 00:00 Heparin Sodium (Porcine) (Heparin (5000 Units/0.5 ml)) 5,000 unit BID SC Last administered on 10/15/16 07:47; Admin Dose 5,000 UNIT; Start 10/13/16 at 21:00 Hydralazine HCl 10 mg 10 mg Q6H PRN IV SBP >160 Last administered on 10/13/16 19:56; Admin Dose 10 MG; Start 10/13/16 at 20:00 Vancomycin HCl/ Sodium Chloride (Vancocin/NS) 150 ml @ 75 mls/hr Q12H IVPB Last administered on 10/15/16 10:30; Admin Dose 75 MLS/HR; Start 10/14/16 at 10 :00 KATHERYN RINALDI NP Oct 15, 2016 15:29
[2016-10-15] MEDS: CEFTRIAXONE 1 GM/50 ML (PMX) 50 ML IVPB SCH (15:30)
[2016-10-15] MEDS: DEXTROSE 5%-0.45% NACL 1,000 ML IV SCH (16:00)
--- NOTE | 2016-10-15 16:01 | PN ---
Date/Time of Note Date/Time of Note DATE: 10/15/16 TIME: 16:00 Assessment/Plan VTE Prophylaxis VTE Prophylaxis Intervention: other Lines/Catheters IV Catheter Type (from Nrs): Saline Lock Assessment/Plan Chief Complaint/Hosp Course ASSESSMENT AND PLAN: 1. Right foot cellulitis and gangrene of the right lower extremity. Vascular surgeon and podiatry has been consulted. Continue prophylactic IV antibiotics, pain medication and follow up with vascular surgeon's recommendation for possible angiography and vein mapping vs other surgical intervention. 2. Diabetes mellitus. Continue insulin sliding scale, low carbohydrate diet, Lantus. 3. Peripheral vascular disease. Continue statin and aspirin. 4. Essential hypertension, well controlled on medical management. 5. Diabetic neuropathy. Continue gabapentin. 6. For deep venous thrombosis prophylaxis, the patient is on aspirin and will follow up vascular surgery for further recommendation. 7. For gastrointestinal prophylaxis, the patient has been placed on proton pump inhibitor. We will continue to monitor patient closely. Further recommendations, management and treatment as per clinical course. Problems: Subjective 24 Hr Interval Summary Free Text/Dictation No acute changes Status post Cardiolite SPECT study today No nausea vomiting diarrhea Minimal p.o. intake Exam/Review of Systems Vital Signs Vitals Vital Signs Date Time Temp Pulse Resp B/P Pulse Ox O2 Delivery O2 Flow Rate FiO2 10/15/16 07:24 98.7 73 14 85/49 96 10/13/16 10:00 Room Air Intake and Output 10/14/16 10/14/16 10/15/16 15:00 23:00 07:00 Intake Total 700 ml 200 ml Output Total 1200 ml 300 ml Balance -500 ml -100 ml Exam General: The patient is well-developed, Not in acute distress. HEENT: Atraumatic, normocephalic. The pupils are equal and round . Neck: Supple with full range of motion. Chest: Normal expansion of the thorax during inspiration Lungs: Clear to auscultation bilaterally Heart: Normal S1-S2, Regular rhythm and rate. Abdomen: Soft , nontender, nondistended , bowel sounds are present. Extremities: Status post left AKA, right foot fourth and fifth toe gangrene, no edema no cyanosis Neurologic: Normal mental status,The patient is awake, alert and oriented . Results Result Diagram: 10/15/16 0505 10/15/16 0505 Results 24 hrs Laboratory Tests Test 10/14/16 17:07 10/14/16 18:30 10/14/16 20:35 10/15/16 00:30 Bedside Glucose 97 223 H Troponin I 0.019 < 0.012 Test 10/15/16 02:14 10/15/16 05:05 10/15/16 07:41 10/15/16 08:50 Bedside Glucose 121 103 Anion Gap 14 Basophils # 0.0 Basophils % 0.1 Blood Urea Nitrogen 13 Calcium Level 8.6 Carbon Dioxide Level 28 Chloride Level 102 Creatinine 0.46 Eosinophils # 0.5 Eosinophils % 5.9 Glucose Level 89 Hematocrit 27.9 L Hemoglobin 9.1 L Lymphocytes # 1.2 Lymphocytes % 14.4 L Magnesium Level 1.8 Mean Corpuscular Hemoglobin 29.9 Mean Corpuscular Hemoglobin Concent 32.6 Mean Corpuscular Volume 91.8 Mean Platelet Volume 10.4 Monocytes # 0.7 Monocytes % 8.4 Neutrophils # 5.7 Neutrophils % 71.0 Nucleated Red Blood Cells # 0.0 Nucleated Red Blood Cells % 0.0 Platelet Count 357 Potassium Level 3.5 Red Blood Count 3.04 L Red Cell Distribution Width 13.8 Sodium Level 140 Troponin I 0.015 White Blood Count 8.1 # Vancomycin Level Trough 11.4 Medications Medications Current Medications Aspirin (Aspirin) 81 mg DAILY PO Last administered on 10/15/16 07:40; Admin Dose 81 MG; Start 10/14/16 at 09:00 Gabapentin (Neurontin) 300 mg TID PO Last administered on 10/15/16 13:20; Admin Dose 300 MG; Start 10/13/16 at 21:00 Insulin Glargine (Lantus) 5 unit HS SC Last administered on 10/14/16 21:27; Admin Dose 5 UNIT; Start 10/13/16 at 21:00 Lisinopril (Zestril) 10 mg DAILY PO ; Start 10/14/16 at 09:00 Atorvastatin Calcium (Lipitor) 10 mg HS PO Last administered on 10/14/16 21:23 ; Admin Dose 10 MG; Start 10/13/16 at 21:00 Ondansetron HCl (Zofran Inj) 4 mg Q6H PRN IV NAUSEA AND/OR VOMITING; Start at 15:30 Acetaminophen (Tylenol Tab) 650 mg Q6H PRN PO PAIN LEVEL 1-3 OR FEVER; Start at 15:30 Acetaminophen (Tylenol Supp) 650 mg Q6H PRN OR PAIN LEVEL 1-3 OR FEVER; Start 10/13/16 at 15:30 Oxycodone/ Acetaminophen (Percocet (5/ 325)) 1 tab Q6H PRN PO MODERATE PAIN LEVEL 4-6 Last administered on 10/14/16 22:57; Admin Dose 1 TAB; Start at 15:30 Morphine Sulfate (morphine) 1 mg Q4H PRN IV SEVERE PAIN LEVEL 7-10 Last administered on 10/15/16 06:46; Admin Dose 1 MG; Start 10/13/16 at 15:30 Docusate Sodium (Colace) 100 mg Q12H PRN PO CONSTIPATION; Start 10/13/16 at 15: 30 Bisacodyl (Dulcolax) 5 mg DAILY PRN PO CONSTIPATION; Start 10/13/16 at 15:30 Pantoprazole 40 mg 40 mg DAILY@06 PO ; Start 10/14/16 at 06:00 Ceftriaxone Sodium (Rocephin) 50 ml @ 100 mls/hr Q24H IVPB Last administered on 10/15/16 15:30; Admin Dose 100 MLS/HR; Start 10/13/16 at 15:30 Diphenhydramine HCl (Benadryl) 25 mg Q6H PRN PO ITCHING; Start 10/13/16 at 15: 30 Miscellaneous Information 1 ea NOTE XX ; Start 10/13/16 at 16:00 Glucose (Glutose) 15 gm Q15M PRN PO DECREASED GLUCOSE; Start 10/13/16 at 16:00 Glucose (Glutose) 22.5 gm Q15M PRN PO DECREASED GLUCOSE; Start 10/13/16 at 16: 00 Dextrose (D50w Syringe) 25 ml Q15M PRN IV DECREASED GLUCOSE; Start 10/13/16 at 16:00 Dextrose (D50w Syringe) 50 ml Q15M PRN IV DECREASED GLUCOSE; Start 10/13/16 at 16:00 Glucagon (Glucagen) 1 mg Q15M PRN IM DECREASED GLUCOSE; Start 10/13/16 at 16:00 Glucose 15 gm 15 gm Q15M PRN BUCCAL DECREASED GLUCOSE; Start 10/13/16 at 16:00 Dextrose/Sodium Chloride (D5-1/2ns) 1,000 ml @ 50 mls/hr Q20H IV Last administered on 10/13/16 23:50; Admin Dose 50 MLS/HR; Start 10/14/16 at 00:00 Heparin Sodium (Porcine) (Heparin (5000 Units/0.5 ml)) 5,000 unit BID SC Last administered on 10/15/16 07:47; Admin Dose 5,000 UNIT; Start 10/13/16 at 21:00 Hydralazine HCl 10 mg 10 mg Q6H PRN IV SBP >160 Last administered on 10/13/16 19:56; Admin Dose 10 MG; Start 10/13/16 at 20:00 Vancomycin HCl/ Sodium Chloride (Vancocin/NS) 150 ml @ 75 mls/hr Q12H IVPB Last administered on 10/15/16 10:30; Admin Dose 75 MLS/HR; Start 10/14/16 at 10 :00 GIUSEPPE BRITO MD Oct 15, 2016 16:01
--- NOTE | 2016-10-15 19:19 | PN ---
Date/Time of Note Date/Time of Note DATE: 10/15/16 TIME: 19:13 Assessment/Plan Lines/Catheters IV Catheter Type (from [facility]): PICC Line Assessment/Plan Chief Complaint/Hosp Course -Bilateral lower extremity atherosclerosis with gangrene: It seems the patient has developed a right lower extremity gangrene in which it is a very complicated situation as the patient has had a left hip disarticulation and providing her with vascular interventions is limited. Upon our extensive discussion with the patient she has been very emotional and has asked for everything that can be done to preserve her right lower extremity. Patient is quite dependent per her family and herself to about 80% with her right lower extremity in terms of being able to transfer and her mobility at home. We have provided her offer of conservative therapy for the wound care and eventual amputation if she has an infection that is threatening her life. We have mentioned that if she develops rest pain that it is intolerable and then an amputation at that point. We have also offered her possible right lower extremity angiogram to further delineate her tibioperoneal disease and evaluate the areas that have been found to be monophasic with ultrasound. I have spoken with the family that she may require a revascularization and they have agreed to have everything done, no matter the risks entailed. -Optimize vascular status (BP meds, diet, nutrition, exercise, sugar control, antiplatelets). -Awaiting availability of cardiac catheterization technician for an angiogram. will attempt tomorrow. ( yesterday urgent cardiac case ) -Continue antibiotics per ID -Appreciate cardiology feedback -Discussed findings, plan and management with the patient and she understands with a certified transfer controller. -Thank you for allowing us to partake in the care of your patient. Please call with any questions. Problems: Subjective 24 Hr Interval Summary no new vascular events overnight Exam/Review of Systems Vital Signs Vitals Vital Signs Date Time Temp Pulse Resp B/P Pulse Ox O2 Delivery O2 Flow Rate FiO2 10/15/16 07:24 98.7 73 14 85/49 96 10/13/16 10:00 Room Air Intake and Output 10/14/16 10/14/16 10/15/16 15:00 23:00 07:00 Intake Total 700 ml 200 ml Output Total 1200 ml 300 ml Balance -500 ml -100 ml Exam Free Text/Dictation GENERAL: Alert and oriented x3, PULMONARY: Clear to auscultation bilaterally. CARDIOVASCULAR: S1, S2 present. ABDOMEN: Soft, nontender, nondistended. Bowel sounds positive. Midline incision with surgical scar that is well healed. Bowel sounds positive. EXTREMITIES: Left lower extremity: left hip disarticulation surgical scar with the mid aspect of the wound that has good granulation tissue that is still healing. good epithelization and no pus or erythema identified. Some Skin excoriation. Right lower extremity: Palpable femoral pulse, seems to be a bit faint. Nonpalpable pedal pulse. Motor and sensory intact. Capillary refill 4 seconds. Dependent rubor of the foot. Gangrene of the fourth toe and partial gangrene on the medial aspect of the fifth toe. Results Result Diagram: 10/15/16 0505 10/15/16 0505 JOAQUINA MCKEON MD Oct 15, 2016 19:19
[2016-10-15 19:58] VITALS: BP 100/51; RESP 18
[2016-10-15] MEDS: ATORVASTATIN 10 MG TAB PO SCH (20:21)
[2016-10-15] MEDS: INSULIN GLARGINE [LANtus] 3 ML PEN SC SCH (20:28)
--- NOTE | 2016-10-15 20:31 | RADRPT ---
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 Physician: KAYLEIGH PATEL Quality: Adequate Procedures: Transthoracic echocardiogram with complete 2D, M-Mode, and doppler examination. Indications: Pre-op. 2D/M Mode Doppler Measurement Value Normal Ranges Measurement Value Normal Ranges LVIDd 2D 2.9 3.5 - 5.6 cm AV Peak Marquez 1.8 m/sec LVIDs 2D 0.9 2.1 - 4.1 cm AV Peak PG 13.0 mmHg FS 2D 70.3 % LVOT Peak Marquez 1.4 m/sec LVPWd 2D 1.0 0.6 - 1.1 cm LVOT Peak PG 8.0 mmHg IVSd 2D 1.0 0.6 - 1.1 cm MV E Peak Marquez 0.6 m/sec IVS/LVPW 2D 1.1 MV A Peak Marquez 0.8 m/sec AoR Diam 2D 2.1 2.0 - 3.7 cm MV E/A 0.8 LA/Ao 2D 1 0 - 1 MV Decel Time 169 msec EDV 2D 25.4 cm3 MV E/A 0.8 ESV 2D 0.7 cm3 LA Dimen 2D 3.1 2.3 - 4.0 cm Findings Left Ventricle: Hyperdynamic left ventricular systolic function. Normal left ventricular cavity size. Mild concentric left ventricular hypertrophy. Ejection fraction is visually estimated at >65 %. Tissue Doppler/Mitral Doppler indices are consistent with impaired relaxation (Stage I diastolic dysfunction). Right Ventricle: Normal right ventricular size. Normal right ventricular systolic function. Left Atrium: The left atrium is normal in size. Right Atrium: The right atrium is normal in size. Mitral Valve: Normal appearance and function of the mitral valve with trace physiologic regurgitation. Aortic Valve: No significant aortic stenosis or insufficiency. Aortic cusps appear mildly calcified. Tricuspid Valve: Normal appearance and function of the tricuspid valve with trace physiologic regurgitation. Normal right ventricular systolic pressure. Pulmonic Valve: Normal pulmonic valve appearance. Pericardium: Trivial pericardial effusion. Aorta: Normal aortic root. IVC: Normal size and normal respiratory collapse consistent with normal right atrial pressure. Conclusions 1.Hyperdynamic left ventricular systolic function. Normal left ventricular cavity size. Mild concentric left ventricular hypertrophy. Ejection fraction is visually estimated at >65 %. Tissue Doppler/Mitral Doppler indices are consistent with impaired relaxation (Stage I diastolic dysfunction). 2.Normal appearance and function of the mitral valve with trace physiologic regurgitation. 3.Normal appearance and function of the tricuspid valve with trace physiologic regurgitation. Normal right ventricular systolic pressure. 4.Trivial pericardial effusion. Electronically Signed By: Kayleigh Patel 15-Oct-2016 20:31:03 -0700 Patient Name: SERGIO PILLAI Study Date: 15-Oct-[id number]
[2016-10-15] MEDS: OXYCODONE/ACETAMINOPHEN (5/325) TAB PO PRN (22:54)
[2016-10-16] MEDS: OXYCODONE/ACETAMINOPHEN (5/325) TAB PO PRN ×2 (03:54→21:43)
[2016-10-16] MEDS: PANTOPRAZOLE (EC) 40 MG TAB PO SCH (05:52)
[2016-10-16] MEDS: DEXTROSE 5%-0.45% NACL 1,000 ML IV SCH (07:25)
[2016-10-16 07:30] VITALS: BP 95/54; RESP 18
--- NOTE | 2016-10-16 08:12 | PN ---
Date/Time of Note Date/Time of Note DATE: 10/16/16 TIME: 08:09 Assessment/Plan VTE Prophylaxis VTE Prophylaxis Intervention: other Lines/Catheters IV Catheter Type (from Nrs): PICC Line Central line still needed: Yes Assessment/Plan Chief Complaint/Hosp Course ASSESSMENT AND PLAN: 1. Right foot cellulitis and gangrene of the right lower extremity. Vascular surgeon and podiatry has been consulted. Continue prophylactic IV antibiotics, pain medication and follow up with vascular surgeon's recommendation for possible angiogram today. Status post vein mapping:, No thrombosis visualized. 2. Diabetes mellitus. Continue insulin sliding scale, low carbohydrate diet, Lantus. 3. Peripheral vascular disease. Continue statin and aspirin. 4. Essential hypertension, well controlled on medical management. 5. Diabetic neuropathy. Continue gabapentin. 6. For deep venous thrombosis prophylaxis, the patient is on aspirin and will follow up vascular surgery for further recommendation. 7. For gastrointestinal prophylaxis, the patient has been placed on proton pump inhibitor. We will continue to monitor patient closely. Further recommendations, management and treatment as per clinical course. Problems: Subjective 24 Hr Interval Summary Free Text/Dictation Patient denies any chest pain or shortness of breath Denies of any abdominal pain No nausea vomiting diarrhea N.p.o. secondary to upcoming angiogram Exam/Review of Systems Vital Signs Vitals Vital Signs Date Time Temp Pulse Resp B/P Pulse Ox O2 Delivery O2 Flow Rate FiO2 10/16/16 07:30 97.9 62 18 95/54 95 10/13/16 10:00 Room Air Intake and Output 10/15/16 10/15/16 10/16/16 15:00 23:00 07:00 Intake Total 500 ml 350 ml Output Total 800 ml 600 ml Balance -300 ml -250 ml Exam General: The patient is well-developed, Not in acute distress. HEENT: Atraumatic, normocephalic. The pupils are equal and round . Neck: Supple with full range of motion. Chest: Normal expansion of the thorax during inspiration Lungs: Clear to auscultation bilaterally Heart: Normal S1-S2, Regular rhythm and rate. Abdomen: Soft , nontender, nondistended , bowel sounds are present. Extremities: Right foot fourth and fifth toe gangrene toe, status post left lower extremity AKA, no edema no cyanosis Neurologic: Normal mental status,The patient is awake, alert and oriented . Results Result Diagram: 10/15/16 0505 10/15/16 0505 Results 24 hrs Laboratory Tests Test 10/15/16 08:50 10/15/16 17:04 10/15/16 20:20 10/16/16 07:38 Vancomycin Level Trough 11.4 Bedside Glucose 117 123 112 Medications Medications Current Medications Aspirin (Aspirin) 81 mg DAILY PO Last administered on 10/15/16 07:40; Admin Dose 81 MG; Start 10/14/16 at 09:00 Gabapentin (Neurontin) 300 mg TID PO Last administered on 10/15/16 20:21; Admin Dose 300 MG; Start 10/13/16 at 21:00 Insulin Glargine (Lantus) 5 unit HS SC Last administered on 10/15/16 20:28; Admin Dose 5 UNIT; Start 10/13/16 at 21:00 Lisinopril (Zestril) 10 mg DAILY PO ; Start 10/14/16 at 09:00 Atorvastatin Calcium (Lipitor) 10 mg HS PO Last administered on 10/15/16 20:21 ; Admin Dose 10 MG; Start 10/13/16 at 21:00 Ondansetron HCl (Zofran Inj) 4 mg Q6H PRN IV NAUSEA AND/OR VOMITING; Start at 15:30 Acetaminophen (Tylenol Tab) 650 mg Q6H PRN PO PAIN LEVEL 1-3 OR FEVER; Start at 15:30 Acetaminophen (Tylenol Supp) 650 mg Q6H PRN [place] PAIN LEVEL 1-3 OR FEVER; Start 10/13/16 at 15:30 Oxycodone/ Acetaminophen (Percocet (5/ 325)) 1 tab Q6H PRN PO MODERATE PAIN LEVEL 4-6 Last administered on 10/16/16 03:54; Admin Dose 1 TAB; Start at 15:30 Morphine Sulfate (morphine) 1 mg Q4H PRN IV SEVERE PAIN LEVEL 7-10 Last administered on 10/15/16 06:46; Admin Dose 1 MG; Start 10/13/16 at 15:30 Docusate Sodium (Colace) 100 mg Q12H PRN PO CONSTIPATION; Start 10/13/16 at 15: 30 Bisacodyl (Dulcolax) 5 mg DAILY PRN PO CONSTIPATION; Start 10/13/16 at 15:30 Pantoprazole 40 mg 40 mg DAILY@06 PO Last administered on 10/16/16 05:52; Admin Dose 40 MG; Start 10/14/16 at 06:00 Ceftriaxone Sodium (Rocephin) 50 ml @ 100 mls/hr Q24H IVPB Last administered on 10/15/16 15:30; Admin Dose 100 MLS/HR; Start 10/13/16 at 15:30 Diphenhydramine HCl (Benadryl) 25 mg Q6H PRN PO ITCHING; Start 10/13/16 at 15: 30 Miscellaneous Information 1 ea NOTE XX ; Start 10/13/16 at 16:00 Glucose (Glutose) 15 gm Q15M PRN PO DECREASED GLUCOSE; Start 10/13/16 at 16:00 Glucose (Glutose) 22.5 gm Q15M PRN PO DECREASED GLUCOSE; Start 10/13/16 at 16: 00 Dextrose (D50w Syringe) 25 ml Q15M PRN IV DECREASED GLUCOSE; Start 10/13/16 at 16:00 Dextrose (D50w Syringe) 50 ml Q15M PRN IV DECREASED GLUCOSE; Start 10/13/16 at 16:00 Glucagon (Glucagen) 1 mg Q15M PRN IM DECREASED GLUCOSE; Start 10/13/16 at 16:00 Glucose 15 gm 15 gm Q15M PRN BUCCAL DECREASED GLUCOSE; Start 10/13/16 at 16:00 Dextrose/Sodium Chloride (D5-1/2ns) 1,000 ml @ 50 mls/hr Q20H IV Last administered on 10/16/16 07:25; Admin Dose 50 MLS/HR; Start 10/14/16 at 00:00 Heparin Sodium (Porcine) (Heparin (5000 Units/0.5 ml)) 5,000 unit BID SC Last administered on 10/15/16 20:29; Admin Dose 5,000 UNIT; Start 10/13/16 at 21:00 Hydralazine HCl 10 mg 10 mg Q6H PRN IV SBP >160 Last administered on 10/13/16 19:56; Admin Dose 10 MG; Start 10/13/16 at 20:00 Vancomycin HCl/ Sodium Chloride (Vancocin/NS) 150 ml @ 75 mls/hr Q12H IVPB Last administered on 3/16/17at 22:54; Admin Dose 75 MLS/HR; Start 10/14/16 at 10 :00 GIUSEPPE BRITO MD Oct 16, 2016 08:12
[2016-10-16] MEDS: INSULIN ASPART [NOVOLOG] 3 ML PEN SC SCH ×4 (08:15→20:59)
[2016-10-16] MEDS: LISINOPRIL 10 MG TAB PO SCH (08:22)
[2016-10-16] MEDS: GABAPENTIN 300 MG CAP PO SCH ×3 (08:25→21:43)
[2016-10-16] MEDS: ASPIRIN 81 MG TAB PO SCH (08:25)
[2016-10-16] MEDS: HEPARIN 5,000 UNIT/0.5 ML SYG SC SCH ×2 (08:32→21:54)
[2016-10-16] MEDS: VANCOMYCIN 750 MG in SOD CHLORIDE 0.9% 150 ML IVPB SCH ×2 (09:56→21:44)
--- NOTE | 2016-10-16 15:17 | CONS ---
Date/Time of Note Date/Time of Note DATE: 10/16/16 TIME: 15:15 Assessment/Plan Assessment/Plan Chief Complaint/Hosp Course SUBJECTIVE: No acute changes. The patient is alert, sitting up in bed, looks comfortable, no fevers. ANTIMICROBIALS: 1. Vancomycin. 2. Rocephin. PHYSICAL EXAMINATION: GENERAL: This is a well-nourished, well-developed, middle-aged woman who is alert, in no distress. HEENT: Head atraumatic, normocephalic. Sclerae anicteric. Buccal mucosa dry. NECK: Supple. CHEST: Rise symmetrical. Breath sounds diminished to bases. HEART: S1, S2. ABDOMEN: Soft. Bowel tones present. EXTREMITIES: With right foot gangrenous changes. ASSESSMENT: 1. Right foot cellulitis with gangrene. 2. Peripheral vascular disease. 3. Hypertension. 4. 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 PLAN: The patient remains stable. Continue present care, antibiotics. Follow vascular recommendations. DW staff Problems: Consultation Date/Type/Reason Admit Date/Time Oct 14, 2016 at 16:41 Type of Consultation: ID Referring Provider: JOAQUINA MCKEON MD Exam/Review of Systems Vital Signs Vitals Vital Signs Date Time Temp Pulse Resp B/P Pulse Ox O2 Delivery O2 Flow Rate FiO2 10/16/16 07:30 97.9 62 18 95/54 95 10/13/16 10:00 Room Air Intake and Output 10/15/16 10/15/16 10/16/16 15:00 23:00 07:00 Intake Total 500 ml 350 ml Output Total 800 ml 600 ml Balance -300 ml -250 ml Results Result Diagram: 10/15/16 0505 10/15/16 0505 Results 24 hrs Laboratory Tests Test 10/15/16 17:04 10/15/16 20:20 10/16/16 07:38 10/16/16 11:31 Bedside Glucose 117 123 112 89 Medications Medications Current Medications Aspirin (Aspirin) 81 mg DAILY PO Last administered on 10/16/16 08:25; Admin Dose 81 MG; Start 10/14/16 at 09:00 Gabapentin (Neurontin) 300 mg TID PO Last administered on 10/16/16 08:25; Admin Dose 300 MG; Start 10/13/16 at 21:00 Insulin Glargine (Lantus) 5 unit HS SC Last administered on 10/15/16 20:28; Admin Dose 5 UNIT; Start 10/13/16 at 21:00 Lisinopril (Zestril) 10 mg DAILY PO ; Start 10/14/16 at 09:00 Atorvastatin Calcium (Lipitor) 10 mg HS PO Last administered on 10/15/16 20:21 ; Admin Dose 10 MG; Start 10/13/16 at 21:00 Ondansetron HCl (Zofran Inj) 4 mg Q6H PRN IV NAUSEA AND/OR VOMITING; Start at 15:30 Acetaminophen (Tylenol Tab) 650 mg Q6H PRN PO PAIN LEVEL 1-3 OR FEVER; Start at 15:30 Acetaminophen (Tylenol Supp) 650 mg Q6H PRN [place] PAIN LEVEL 1-3 OR FEVER; Start 10/13/16 at 15:30 Oxycodone/ Acetaminophen (Percocet (5/ 325)) 1 tab Q6H PRN PO MODERATE PAIN LEVEL 4-6 Last administered on 10/16/16 03:54; Admin Dose 1 TAB; Start at 15:30 Morphine Sulfate (morphine) 1 mg Q4H PRN IV SEVERE PAIN LEVEL 7-10 Last administered on 10/15/16 06:46; Admin Dose 1 MG; Start 10/13/16 at 15:30 Docusate Sodium (Colace) 100 mg Q12H PRN PO CONSTIPATION; Start 10/13/16 at 15: 30 Bisacodyl (Dulcolax) 5 mg DAILY PRN PO CONSTIPATION; Start 10/13/16 at 15:30 Pantoprazole 40 mg 40 mg DAILY@06 PO Last administered on 10/16/16 05:52; Admin Dose 40 MG; Start 10/14/16 at 06:00 Ceftriaxone Sodium (Rocephin) 50 ml @ 100 mls/hr Q24H IVPB Last administered on 10/15/16 15:30; Admin Dose 100 MLS/HR; Start 10/13/16 at 15:30 Diphenhydramine HCl (Benadryl) 25 mg Q6H PRN PO ITCHING; Start 10/13/16 at 15: 30 Miscellaneous Information 1 ea NOTE XX ; Start 10/13/16 at 16:00 Glucose (Glutose) 15 gm Q15M PRN PO DECREASED GLUCOSE; Start 10/13/16 at 16:00 Glucose (Glutose) 22.5 gm Q15M PRN PO DECREASED GLUCOSE; Start 10/13/16 at 16: 00 Dextrose (D50w Syringe) 25 ml Q15M PRN IV DECREASED GLUCOSE; Start 10/13/16 at 16:00 Dextrose (D50w Syringe) 50 ml Q15M PRN IV DECREASED GLUCOSE; Start 10/13/16 at 16:00 Glucagon (Glucagen) 1 mg Q15M PRN IM DECREASED GLUCOSE; Start 10/13/16 at 16:00 Glucose 15 gm 15 gm Q15M PRN BUCCAL DECREASED GLUCOSE; Start 10/13/16 at 16:00 Dextrose/Sodium Chloride (D5-1/2ns) 1,000 ml @ 50 mls/hr Q20H IV Last administered on 10/16/16 07:25; Admin Dose 50 MLS/HR; Start 10/14/16 at 00:00 Heparin Sodium (Porcine) (Heparin (5000 Units/0.5 ml)) 5,000 unit BID SC Last administered on 10/16/16 08:32; Admin Dose 5,000 UNIT; Start 10/13/16 at 21:00 Hydralazine HCl 10 mg 10 mg Q6H PRN IV SBP >160 Last administered on 10/13/16 19:56; Admin Dose 10 MG; Start 10/13/16 at 20:00 Vancomycin HCl/ Sodium Chloride (Vancocin/NS) 150 ml @ 75 mls/hr Q12H IVPB Last administered on 10/16/16 09:56; Admin Dose 75 MLS/HR; Start 10/14/16 at 10 :00 KATHERYN RINALDI NP Oct 16, 2016 15:16
--- NOTE | 2016-10-16 15:52 | PN ---
Date/Time of Note Date/Time of Note DATE: 10/16/16 TIME: 15:50 Assessment/Plan Lines/Catheters IV C[facility]ter Type (from [facility]): PICC Line Assessment/Plan Chief Complaint/Hosp Course -Bilateral lower extremity atherosclerosis with gangrene: It seems the patient has developed a right lower extremity gangrene in which it is a very complicated situation as the patient has had a left hip disarticulation and providing her with vascular interventions is limited. Upon our extensive discussion with the patient she has been very emotional and has asked for everything that can be done to preserve her right lower extremity. Patient is quite dependent per her family and herself to about 80% with her right lower extremity in terms of being able to transfer and her mobility at home. We have provided her offer of conservative therapy for the wound care and eventual amputation if she has an infection that is threatening her life. We have mentioned that if she develops rest pain that it is intolerable and then an amputation at that point. We have also offered her possible right lower extremity angiogram to further delineate her tibioperoneal disease and evaluate the areas that have been found to be monophasic with ultrasound. I have spoken with the family that she may require a revascularization and they have agreed to have everything done, no matter the risks entailed. -Optimize vascular status (BP meds, diet, nutrition, exercise, sugar control, antiplatelets). -Awaiting availability of lab clerk for an angiogram. Will order CTA in the interim -Continue antibiotics per ID -Appreciate cardiology feedback -Discussed findings, plan and management with the patient and she understands with a certified programming specialist. -Thank you for allowing us to partake in the care of your patient. Please call with any questions. Problems: Subjective 24 Hr Interval Summary No new vascular events overnight Exam/Review of Systems Vital Signs Vitals Vital Signs Date Time Temp Pulse Resp B/P Pulse Ox O2 Delivery O2 Flow Rate FiO2 10/16/16 07:30 97.9 62 18 95/54 95 10/13/16 10:00 Room Air Intake and Output 10/15/16 10/15/16 10/16/16 15:00 23:00 07:00 Intake Total 500 ml 350 ml Output Total 800 ml 600 ml Balance -300 ml -250 ml Exam Free Text/Dictation GENERAL: Alert and oriented x3, PULMONARY: Clear to auscultation bilaterally. CARDIOVASCULAR: S1, S2 present. ABDOMEN: Soft, nontender, nondistended. Bowel sounds positive. Midline incision with surgical scar that is well healed. Bowel sounds positive. EXTREMITIES: Left lower extremity: left hip disarticulation surgical scar, mid aspect of the wound with granulation tissue, good epithelization Some Skin excoriation. Right lower extremity: Palpable femoral pulse, seems to be a bit faint. Nonpalpable pedal pulse. Motor and sensory intact. Capillary refill 4 seconds. Dependent rubor of the foot. Gangrene of the fourth toe and partial gangrene on the medial aspect of the fifth toe. Results Result Diagram: 10/15/16 0505 10/15/16 0505 JOAQUINA MCKEON MD Oct 16, 2016 15:52
[2016-10-16] MEDS: CEFTRIAXONE 1 GM/50 ML (PMX) 50 ML IVPB SCH (15:55)
--- NOTE | 2016-10-16 16:30 | CONS ---
Date/Time of Note Date/Time of Note DATE: 10/16/16 TIME: 16:26 Assessment/Plan Assessment/Plan Chief Complaint/Hosp Course IMPRESSION: 1. Preoperative evaluation prior to possible lower extremity revascularization. - No ischemia by lexiscan and NL EF by echo with no sig valve abnl. Thus ok to proceed with surgery at relatively low to moderate risk on current medications without further noninvasive evaluation. 2. Abnormal electrocardiogram with T-wave flattening isolated to the aVL.- negative troponin x 3 3. Hypertension with currently borderline hypotension today. 4. History of dyslipidemia. 5. Diabetes mellitus. 6. Peripheral arterial disease with right lower extremity gangrenous changes. 7. Status post left [id number] amputation. 8. Anemia. Recc: -Tele -Continue asa -Continue statin -Continue ACEI but will derease dose and follow BP closely -Pnding vascular procedure Problems: Consultation Date/Type/Reason Admit Date/Time Oct 14, 2016 at 16:41 Initial Consult Date 10/14/2016 Type of Consultation: Cardiology Reason for Consultation Pre-op Referring Provider: JOAQUINA MCKEON MD Exam/Review of Systems Vital Signs Vitals Vital Signs Date Time Temp Pulse Resp B/P Pulse Ox O2 Delivery O2 Flow Rate FiO2 10/16/16 07:30 97.9 62 18 95/54 95 10/13/16 10:00 Room Air Intake and Output 10/15/16 10/15/16 10/16/16 15:00 23:00 07:00 Intake Total 500 ml 350 ml Output Total 800 ml 600 ml Balance -300 ml -250 ml Exam Review of Systems: CONSTITUTIONAL: No fevers, chills. PULMONARY: No sob CARDIOVASCULAR: No chest pain/palpitations GASTROINTESTINAL: No nausea/vomiting. GENITOURINARY: No hematuria/dysuria. MUSCULOSKELETAL: pain in foot PSYCHIATRIC: The patient denies depression. NEUROLOGIC: No weakness Constitutional: alert, oriented Psych: no complaints Head: normocephalic ENMT: mucosa pink and moist Neck: jvd (9 cm water), supple Respiratory: clear to auscultation Cardiovascular: regular rate and rhythm Gastrointestinal: non-tender, soft Musculoskeletal: other Results Result Diagram: 10/15/16 0505 10/15/16 0505 Results 24 hrs Laboratory Tests Test 10/15/16 17:04 10/15/16 20:20 10/16/16 07:38 10/16/16 11:31 Bedside Glucose 117 123 112 89 Test 10/16/16 15:56 Bedside Glucose 83 Medications Medications Current Medications Aspirin (Aspirin) 81 mg DAILY PO Last administered on 10/16/16 08:25; Admin Dose 81 MG; Start 10/14/16 at 09:00 Gabapentin (Neurontin) 300 mg TID PO Last administered on 10/16/16 08:25; Admin Dose 300 MG; Start 10/13/16 at 21:00 Insulin Glargine (Lantus) 5 unit HS SC Last administered on 10/15/16 20:28; Admin Dose 5 UNIT; Start 10/13/16 at 21:00 Lisinopril (Zestril) 10 mg DAILY PO ; Start 10/14/16 at 09:00 Atorvastatin Calcium (Lipitor) 10 mg HS PO Last administered on 10/15/16 20:21 ; Admin Dose 10 MG; Start 10/13/16 at 21:00 Ondansetron HCl (Zofran Inj) 4 mg Q6H PRN IV NAUSEA AND/OR VOMITING; Start at 15:30 Acetaminophen (Tylenol Tab) 650 mg Q6H PRN PO PAIN LEVEL 1-3 OR FEVER; Start at 15:30 Acetaminophen (Tylenol Supp) 650 mg Q6H PRN [place] PAIN LEVEL 1-3 OR FEVER; Start 10/13/16 at 15:30 Oxycodone/ Acetaminophen (Percocet (5/ 325)) 1 tab Q6H PRN PO MODERATE PAIN LEVEL 4-6 Last administered on 10/16/16 03:54; Admin Dose 1 TAB; Start at 15:30 Morphine Sulfate (morphine) 1 mg Q4H PRN IV SEVERE PAIN LEVEL 7-10 Last administered on 10/15/16 06:46; Admin Dose 1 MG; Start 10/13/16 at 15:30 Docusate Sodium (Colace) 100 mg Q12H PRN PO CONSTIPATION; Start 10/13/16 at 15: 30 Bisacodyl (Dulcolax) 5 mg DAILY PRN PO CONSTIPATION; Start 10/13/16 at 15:30 Pantoprazole 40 mg 40 mg DAILY@06 PO Last administered on 10/16/16 05:52; Admin Dose 40 MG; Start 10/14/16 at 06:00 Ceftriaxone Sodium (Rocephin) 50 ml @ 100 mls/hr Q24H IVPB Last administered on 10/16/16 15:55; Admin Dose 100 MLS/HR; Start 10/13/16 at 15:30 Diphenhydramine HCl (Benadryl) 25 mg Q6H PRN PO ITCHING; Start 10/13/16 at 15: 30 Miscellaneous Information 1 ea NOTE XX ; Start 10/13/16 at 16:00 Glucose (Glutose) 15 gm Q15M PRN PO DECREASED GLUCOSE; Start 10/13/16 at 16:00 Glucose (Glutose) 22.5 gm Q15M PRN PO DECREASED GLUCOSE; Start 10/13/16 at 16: 00 Dextrose (D50w Syringe) 25 ml Q15M PRN IV DECREASED GLUCOSE; Start 10/13/16 at 16:00 Dextrose (D50w Syringe) 50 ml Q15M PRN IV DECREASED GLUCOSE; Start 10/13/16 at 16:00 Glucagon (Glucagen) 1 mg Q15M PRN IM DECREASED GLUCOSE; Start 10/13/16 at 16:00 Glucose 15 gm 15 gm Q15M PRN BUCCAL DECREASED GLUCOSE; Start 10/13/16 at 16:00 Dextrose/Sodium Chloride (D5-1/2ns) 1,000 ml @ 50 mls/hr Q20H IV Last administered on 10/16/16 07:25; Admin Dose 50 MLS/HR; Start 10/14/16 at 00:00 Heparin Sodium (Porcine) (Heparin (5000 Units/0.5 ml)) 5,000 unit BID SC Last administered on 10/16/16 08:32; Admin Dose 5,000 UNIT; Start 10/13/16 at 21:00 Hydralazine HCl 10 mg 10 mg Q6H PRN IV SBP >160 Last administered on 10/13/16 19:56; Admin Dose 10 MG; Start 10/13/16 at 20:00 Vancomycin HCl/ Sodium Chloride (Vancocin/NS) 150 ml @ 75 mls/hr Q12H IVPB Last administered on 10/16/16 09:56; Admin Dose 75 MLS/HR; Start 10/14/16 at 10 :00 KAYLEIGH NORIEGA 17, 2017 16:29
[2016-10-16 20:02] VITALS: BP 162/73; RESP 20
[2016-10-16] MEDS ORDERED: SOD CHLORIDE 0.9% 100 ML ONE (20:43)
[2016-10-16] MEDS ORDERED: IOHEXOL 100 ML ONE (20:43)
[2016-10-16] MEDS ORDERED: IOHEXOL 350MG/ML 50 ML BTL ONE (20:43)
[2016-10-16] MEDS: ATORVASTATIN 10 MG TAB PO SCH (21:43)
[2016-10-16] MEDS: INSULIN GLARGINE [LANtus] 3 ML PEN SC SCH (21:49)
[2016-10-16 23:45] VITALS: BP 112/58; PULSE 64
[2016-10-17] MEDS: morphine 2 MG INJ IV PRN (02:14)
[2016-10-17] MEDS: OXYCODONE/ACETAMINOPHEN (5/325) TAB PO PRN ×2 (04:49→21:09)
[2016-10-17 05:52] LABS: ADD SCAN DIFF NO
[2016-10-17 05:56] LABS: BASOPHILS % 0.2 % (0.0-2.0); EOSINOPHILS # 0.4 10^3/ul (0.0-0.5); EOSINOPHILS % 4.7 % (0.0-7.0); HEMATOCRIT 28.5 % (37.0-47.0); HEMOGLOBIN 9.2 g/dl (12.0-16.0); LYMPHOCYTES # 1.6 10^3/ul (0.8-2.9); LYMPHOCYTES % 18.3 % (15.0-51.0); MEAN CORPUSCULAR HEMOGLOBIN 29.5 pg (29.0-33.0); MEAN CORPUSCULAR HGB CONC 32.3 g/dl (32.0-37.0); MEAN CORPUSCULAR VOLUME 91.3 fl (82.0-101.0); MEAN PLATELET VOLUME 10.7 fl (7.4-10.4); MONOCYTE # 0.9 10^3/ul (0.3-0.9); MONOCYTES % 10.6 % (0.0-11.0); NEUTROPHIL # 5.8 10^3/ul (1.6-7.5); NEUTROPHILS % 65.9 % (39.0-77.0); PLATELET COUNT 384 10^3/UL (140-415); RED BLOOD COUNT 3.12 10^6/ul (4.20-5.40); RED CELL DISTRIBUTION WIDTH 14.2 % (11.5-14.5); WHITE BLOOD COUNT 8.8 10^3/ul (4.8-10.8)
[2016-10-17 06:11] LABS: POTASSIUM 3.7 mmol/L (3.5-5.1)
[2016-10-17 06:13] LABS: CREATININE 0.54 mg/dl (0.44-1.00)
[2016-10-17 06:14] LABS: CALCIUM 8.6 mg/dl (8.4-10.2); MAGNESIUM 1.8 mg/dl (1.7-2.5)
[2016-10-17] MEDS: PANTOPRAZOLE (EC) 40 MG TAB PO SCH (06:46)
[2016-10-17 07:36] VITALS: BP 98/48; RESP 16
[2016-10-17] MEDS: DEXTROSE 5%-0.45% NACL 1,000 ML IV SCH ×2 (08:00→12:12)
[2016-10-17] MEDS: INSULIN ASPART [NOVOLOG] 3 ML PEN SC SCH ×4 (08:15→21:20)
[2016-10-17] MEDS: ASPIRIN 81 MG TAB PO SCH (08:44)
[2016-10-17] MEDS: LISINOPRIL 5 MG TAB PO SCH (08:44)
[2016-10-17] MEDS: GABAPENTIN 300 MG CAP PO SCH ×3 (08:44→21:09)
[2016-10-17 08:58] VITALS: PULSE 60
[2016-10-17] MEDS: VANCOMYCIN 750 MG in SOD CHLORIDE 0.9% 150 ML IVPB SCH ×2 (09:48→22:20)
[2016-10-17] MEDS: HEPARIN 5,000 UNIT/0.5 ML SYG SC SCH ×2 (10:06→21:20)
--- NOTE | 2016-10-17 12:19 | PN ---
DATE: 10/17/2016 INTERNAL MEDICINE FOLLOWUP SUBJECTIVE: Chart reviewed. Events noted. Vascular surgical followup and cardiology followup note d and appreciated. PHYSICAL EXAMINATION: VITAL SIGNS: Blood pressure 98/48, pulse 58, respirations 16, temperature 98.3. Currently saturati ng 100%. HEENT: Pupils are equal and reactive to light. Anicteric sclerae. NECK: Supple. No JVD noted, no cervical adenopathy noted, no carotid bruits heard. LUNGS: Fair breath sounds bilaterally. CARDIOVASCULAR: S1, S2 normal. ABDOMEN: Soft, nontender. No organomegaly or masses noted. EXTREMITIES: Right foot 4th and 5th gangrenous toes. Status post left lower extremity AKA. No sujata ma or cyanosis noted. NEUROLOGICAL: Awake. LABORATORY: WBC 8.8, hemoglobin 9.2, hematocrit 28.5, platelets 384. Sodium 140, potassium 3.7, ch loride 103, CO2 29, BUN 9, creatinine 0.54, glucose 96. IMPRESSION: 1. Right foot cellulitis and gangrene of the toes. 2. Severe peripheral vascular disease. 3. Diabetes mellitus. 4. Hypertension. 5. Diabetic neuropathy. 6. Anemia. RECOMMENDATIONS: 1. Vascular evaluation noted. 2. Cardiology followup noted. 3. Continue current antibiotics. 4. Await angiogram. 5. Above discussed with the staff. Dictated By: MOHINI LEE MD, MA/TRACE Conf#: [id number] DID#: [id number]
--- NOTE | 2016-10-17 14:12 | CONS ---
Date/Time of Note Date/Time of Note DATE: 10/17/16 TIME: 14:10 Assessment/Plan Assessment/Plan Additional Assessment/Plan 1. Preoperative evaluation prior to possible lower extremity revascularization. - No ischemia by lexiscan and NL EF by echo with no sig valve abnl. Thus ok to proceed with surgery at relatively low to moderate risk on current medications without further noninvasive evaluation. 2. Abnormal electrocardiogram with T-wave flattening isolated to the aVL.- negative troponin x 3 - no cp now 3. Hypertension with currently borderline hypotension today- BP stable 4. History of dyslipidemia. 5. Diabetes mellitus. 6. Peripheral arterial disease with right lower extremity gangrenous changes- awaiting surgical dispo 7. Status post left [id number] amputation. 8. Anemia. Consultation Date/Type/Reason Admit Date/Time Oct 14, 2016 at 16:41 Initial Consult Date Type of Consultation: Cardiology Referring Provider: JOAQUINA MCKEON MD 24 HR Interval Summary Free Text/Dictation No acute change - awaiting surgical dispo ROS: No fever, no chills, no nausea, no vomiting, no diarrhea/constipation No recent weight changes No chest pain, no PND, no orthopnea No dizziness, blurred vision No thirst, no heat or cold intolerance Exam/Review of Systems Vital Signs Vitals Vital Signs Date Time Temp Pulse Resp B/P Pulse Ox O2 Delivery O2 Flow Rate FiO2 10/17/16 08:58 60 10/17/16 07:36 98.3 16 98/48 98 10/13/16 10:00 Room Air Intake and Output 10/16/16 10/16/16 10/17/16 15:00 23:00 07:00 Intake Total 240 ml 700 ml 360 ml Output Total 500 ml 1000 ml Balance 240 ml 200 ml -640 ml Exam General: WN/WD/NAD, AOx 2-3 HEENT: Unicetric/atraumatic/EOMI (ollow commands) NECK: JVD elevated, no thyromegaly Lymph: no lymphadenopathy HEART: regular with no S3, II/ systolic murmur at apex LUNGS: Coarse sounds ABD: soft, NT, ND, +BS : Intact Neuro: non focal SKIN: chronic changes EXT: trace edema, gangrene Results Result Diagram: 10/17/1644910/17/16 0450 Results 24 hrs Laboratory Tests Test 10/16/16 15:56 10/16/16 20:00 10/16/16 20:56 10/17/16 04:50 Bedside Glucose 83 92 Urine Test NEGATIVE Anion Gap 12 Basophils # 0.0 Basophils % 0.2 Blood Urea Nitrogen 9 Calcium Level 8.6 Carbon Dioxide Level 29 Chloride Level 103 Creatinine 0.54 Eosinophils # 0.4 Eosinophils % 4.7 Glucose Level 96 Hematocrit 28.5 L Hemoglobin 9.2 L Lymphocytes # 1.6 Lymphocytes % 18.3 Magnesium Level 1.8 Mean Corpuscular Hemoglobin 29.5 Mean Corpuscular Hemoglobin Concent 32.3 Mean Corpuscular Volume 91.3 Mean Platelet Volume 10.7 H Monocytes # 0.9 Monocytes % 10.6 Neutrophils # 5.8 Neutrophils % 65.9 Nucleated Red Blood Cells # 0.0 Nucleated Red Blood Cells % 0.0 Platelet Count 384 Potassium Level 3.7 Red Blood Count 3.12 L Red Cell Distribution Width 14.2 Sodium Level 140 White Blood Count 8.8 Test 10/17/16 08:08 10/17/16 12:09 Bedside Glucose 103 170 Medications Medications Current Medications Aspirin (Aspirin) 81 mg DAILY PO Last administered on 10/17/16 08:44; Admin Dose 81 MG; Start 10/14/16 at 09:00 Gabapentin (Neurontin) 300 mg TID PO Last administered on 10/17/16 12:12; Admin Dose 300 MG; Start 10/13/16 at 21:00 Insulin Glargine (Lantus) 5 unit HS SC Last administered on 10/16/16 21:49; Admin Dose 5 UNIT; Start 10/13/16 at 21:00 Atorvastatin Calcium (Lipitor) 10 mg HS PO Last administered on 10/16/16 21:43 ; Admin Dose 10 MG; Start 10/13/16 at 21:00 Ondansetron HCl (Zofran Inj) 4 mg Q6H PRN IV NAUSEA AND/OR VOMITING; Start at 15:30 Acetaminophen (Tylenol Tab) 650 mg Q6H PRN PO PAIN LEVEL 1-3 OR FEVER; Start at 15:30 Acetaminophen (Tylenol Supp) 650 mg Q6H PRN [place] PAIN LEVEL 1-3 OR FEVER; Start 10/13/16 at 15:30 Oxycodone/ Acetaminophen (Percocet (5/ 325)) 1 tab Q6H PRN PO MODERATE PAIN LEVEL 4-6 Last administered on 10/17/16 04:49; Admin Dose 1 TAB; Start at 15:30 Morphine Sulfate (morphine) 1 mg Q4H PRN IV SEVERE PAIN LEVEL 7-10 Last administered on 10/17/16 02:14; Admin Dose 1 MG; Start 10/13/16 at 15:30 Docusate Sodium (Colace) 100 mg Q12H PRN PO CONSTIPATION; Start 10/13/16 at 15: 30 Bisacodyl (Dulcolax) 5 mg DAILY PRN PO CONSTIPATION; Start 10/13/16 at 15:30 Pantoprazole 40 mg 40 mg DAILY@06 PO Last administered on 10/17/16 06:46; Admin Dose 40 MG; Start 10/14/16 at 06:00 Ceftriaxone Sodium (Rocephin) 50 ml @ 100 mls/hr Q24H IVPB Last administered on 10/16/16 15:55; Admin Dose 100 MLS/HR; Start 10/13/16 at 15:30 Diphenhydramine HCl (Benadryl) 25 mg Q6H PRN PO ITCHING; Start 10/13/16 at 15: 30 Miscellaneous Information 1 ea NOTE XX ; Start 10/13/16 at 16:00 Glucose (Glutose) 15 gm Q15M PRN PO DECREASED GLUCOSE; Start 10/13/16 at 16:00 Glucose (Glutose) 22.5 gm Q15M PRN PO DECREASED GLUCOSE; Start 10/13/16 at 16: 00 Dextrose (D50w Syringe) 25 ml Q15M PRN IV DECREASED GLUCOSE; Start 10/13/16 at 16:00 Dextrose (D50w Syringe) 50 ml Q15M PRN IV DECREASED GLUCOSE; Start 10/13/16 at 16:00 Glucagon (Glucagen) 1 mg Q15M PRN IM DECREASED GLUCOSE; Start 10/13/16 at 16:00 Glucose 15 gm 15 gm Q15M PRN BUCCAL DECREASED GLUCOSE; Start 10/13/16 at 16:00 Dextrose/Sodium Chloride (D5-1/2ns) 1,000 ml @ 50 mls/hr Q20H IV Last administered on 10/17/16 12:12; Admin Dose 50 MLS/HR; Start 10/14/16 at 00:00 Heparin Sodium (Porcine) (Heparin (5000 Units/0.5 ml)) 5,000 unit BID SC Last administered on 10/17/16 10:06; Admin Dose 5,000 UNIT; Start 10/13/16 at 21:00 Hydralazine HCl 10 mg 10 mg Q6H PRN IV SBP >160 Last administered on 10/13/16 19:56; Admin Dose 10 MG; Start 10/13/16 at 20:00 Vancomycin HCl/ Sodium Chloride (Vancocin/NS) 150 ml @ 75 mls/hr Q12H IVPB Last administered on 10/17/16 09:48; Admin Dose 75 MLS/HR; Start 10/14/16 at 10 :00 Lisinopril (Zestril) 5 mg DAILY PO ; Start 10/17/16 at 09:00 Miscellaneous Information (*Rx Drug Level Order Reminder*) VANCOMYCIN TROUGH AT 2100 ONCE ONCE XX ; Start 10/17/16 at 21:00; Stop 10/17/16 at 21:01 APRYL IVY MD Oct 17, 2016 14:11
[2016-10-17] MEDS: CEFTRIAXONE 1 GM/50 ML (PMX) 50 ML IVPB SCH (15:30)
--- NOTE | 2016-10-17 16:17 | CONS ---
Date/Time of Note Date/Time of Note DATE: 10/17/16 TIME: 16:16 Assessment/Plan Assessment/Plan Chief Complaint/Hosp Course SUBJECTIVE: No acute changes. The patient is alert, looks comfortable, no fevers. ANTIMICROBIALS: 1. Vancomycin. 2. Rocephin. PHYSICAL EXAMINATION: GENERAL: This is a well-nourished, well-developed, middle-aged woman who is alert, in no distress. HEENT: Head atraumatic, normocephalic. Sclerae anicteric. Buccal mucosa dry. NECK: Supple. CHEST: Rise symmetrical. Breath sounds diminished to bases. HEART: S1, S2. ABDOMEN: Soft. Bowel tones present. EXTREMITIES: With right foot gangrenous changes. ASSESSMENT: 1. Right foot cellulitis with gangrene. 2. Peripheral vascular disease. 3. Hypertension. 4. 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 PLAN: The patient remains stable. Continue present care, antibiotics. Pending vascular intervention DW staff DW son at bedside Problems: Consultation Date/Type/Reason Admit Date/Time Oct 14, 2016 at 16:41 Type of Consultation: id Referring Provider: JOAQUINA MCKEON MD Exam/Review of Systems Vital Signs Vitals Vital Signs Date Time Temp Pulse Resp B/P Pulse Ox O2 Delivery O2 Flow Rate FiO2 10/17/16 08:58 60 10/17/16 07:36 98.3 16 98/48 98 10/13/16 10:00 Room Air Intake and Output 10/16/16 10/16/16 10/17/16 15:00 23:00 07:00 Intake Total 240 ml 700 ml 360 ml Output Total 500 ml 1000 ml Balance 240 ml 200 ml -640 ml Results Result Diagram: 10/17/16 0450 10/17/16 0450 Results 24 hrs Laboratory Tests Test 10/16/16 20:00 10/16/16 20:56 10/17/16 04:50 10/17/16 08:08 Urine Test NEGATIVE Bedside Glucose 92 103 Anion Gap 12 Basophils # 0.0 Basophils % 0.2 Blood Urea Nitrogen 9 Calcium Level 8.6 Carbon Dioxide Level 29 Chloride Level 103 Creatinine 0.54 Eosinophils # 0.4 Eosinophils % 4.7 Glucose Level 96 Hematocrit 28.5 L Hemoglobin 9.2 L Lymphocytes # 1.6 Lymphocytes % 18.3 Magnesium Level 1.8 Mean Corpuscular Hemoglobin 29.5 Mean Corpuscular Hemoglobin Concent 32.3 Mean Corpuscular Volume 91.3 Mean Platelet Volume 10.7 H Monocytes # 0.9 Monocytes % 10.6 Neutrophils # 5.8 Neutrophils % 65.9 Nucleated Red Blood Cells # 0.0 Nucleated Red Blood Cells % 0.0 Platelet Count 384 Potassium Level 3.7 Red Blood Count 3.12 L Red Cell Distribution Width 14.2 Sodium Level 140 White Blood Count 8.8 Test 10/17/16 12:09 Bedside Glucose 170 Medications Medications Current Medications Aspirin (Aspirin) 81 mg DAILY PO Last administered on 10/17/16 08:44; Admin Dose 81 MG; Start 10/14/16 at 09:00 Gabapentin (Neurontin) 300 mg TID PO Last administered on 10/17/16 12:12; Admin Dose 300 MG; Start 10/13/16 at 21:00 Insulin Glargine (Lantus) 5 unit HS SC Last administered on 10/16/16 21:49; Admin Dose 5 UNIT; Start 10/13/16 at 21:00 Atorvastatin Calcium (Lipitor) 10 mg HS PO Last administered on 10/16/16 21:43 ; Admin Dose 10 MG; Start 10/13/16 at 21:00 Ondansetron HCl (Zofran Inj) 4 mg Q6H PRN IV NAUSEA AND/OR VOMITING; Start at 15:30 Acetaminophen (Tylenol Tab) 650 mg Q6H PRN PO PAIN LEVEL 1-3 OR FEVER; Start at 15:30 Acetaminophen (Tylenol Supp) 650 mg Q6H PRN [place] PAIN LEVEL 1-3 OR FEVER; Start 10/13/16 at 15:30 Oxycodone/ Acetaminophen (Percocet (5/ 325)) 1 tab Q6H PRN PO MODERATE PAIN LEVEL 4-6 Last administered on 10/17/16 04:49; Admin Dose 1 TAB; Start at 15:30 Morphine Sulfate (morphine) 1 mg Q4H PRN IV SEVERE PAIN LEVEL 7-10 Last administered on 10/17/16 02:14; Admin Dose 1 MG; Start 10/13/16 at 15:30 Docusate Sodium (Colace) 100 mg Q12H PRN PO CONSTIPATION; Start 10/13/16 at 15: 30 Bisacodyl (Dulcolax) 5 mg DAILY PRN PO CONSTIPATION; Start 10/13/16 at 15:30 Pantoprazole 40 mg 40 mg DAILY@06 PO Last administered on 10/17/16 06:46; Admin Dose 40 MG; Start 10/14/16 at 06:00 Ceftriaxone Sodium (Rocephin) 50 ml @ 100 mls/hr Q24H IVPB Last administered on 10/17/16 15:30; Admin Dose 100 MLS/HR; Start 10/13/16 at 15:30 Diphenhydramine HCl (Benadryl) 25 mg Q6H PRN PO ITCHING; Start 10/13/16 at 15: 30 Miscellaneous Information 1 ea NOTE XX ; Start 10/13/16 at 16:00 Glucose (Glutose) 15 gm Q15M PRN PO DECREASED GLUCOSE; Start 10/13/16 at 16:00 Glucose (Glutose) 22.5 gm Q15M PRN PO DECREASED GLUCOSE; Start 10/13/16 at 16: 00 Dextrose (D50w Syringe) 25 ml Q15M PRN IV DECREASED GLUCOSE; Start 10/13/16 at 16:00 Dextrose (D50w Syringe) 50 ml Q15M PRN IV DECREASED GLUCOSE; Start 10/13/16 at 16:00 Glucagon (Glucagen) 1 mg Q15M PRN IM DECREASED GLUCOSE; Start 10/13/16 at 16:00 Glucose 15 gm 15 gm Q15M PRN BUCCAL DECREASED GLUCOSE; Start 10/13/16 at 16:00 Dextrose/Sodium Chloride (D5-1/2ns) 1,000 ml @ 50 mls/hr Q20H IV Last administered on 10/17/16 12:12; Admin Dose 50 MLS/HR; Start 10/14/16 at 00:00 Heparin Sodium (Porcine) (Heparin (5000 Units/0.5 ml)) 5,000 unit BID SC Last administered on 10/17/16 10:06; Admin Dose 5,000 UNIT; Start 10/13/16 at 21:00 Hydralazine HCl 10 mg 10 mg Q6H PRN IV SBP >160 Last administered on 10/13/16 19:56; Admin Dose 10 MG; Start 10/13/16 at 20:00 Vancomycin HCl/ Sodium Chloride (Vancocin/NS) 150 ml @ 75 mls/hr Q12H IVPB Last administered on 10/17/16t 09:48; Admin Dose 75 MLS/HR; Start 10/14/16 at 10 :00 Lisinopril (Zestril) 5 mg DAILY PO ; Start 10/17/16 at 09:00 Miscellaneous Information (*Rx Drug Level Order Reminder*) VANCOMYCIN TROUGH AT 2100 ONCE ONCE XX ; Start 10/17/16 at 21:00; Stop 10/17/16 at 21:01 KATHERYN RINALDI NP Oct 17, 2016 16:17
[2016-10-17 20:37] VITALS: BP 102/58; RESP 20
[2016-10-17] MEDS: ATORVASTATIN 10 MG TAB PO SCH (21:09)
[2016-10-17] MEDS: INSULIN GLARGINE [LANtus] 3 ML PEN SC SCH (21:20)
[2016-10-17] MEDS ORDERED: LOPERAMIDE 2 MG CAP PO ONE (22:00)
[2016-10-18] MEDS: morphine 2 MG INJ IV PRN (00:28)
[2016-10-18] MEDS: DEXTROSE 5%-0.45% NACL 1,000 ML IV SCH ×2 (04:00→13:46)
[2016-10-18] MEDS: VANCOMYCIN 1 GM in NS 250 ML IVPB SCH ×2 (05:50→17:59)
[2016-10-18] MEDS: PANTOPRAZOLE (EC) 40 MG TAB PO SCH (06:07)
[2016-10-18] MEDS: OXYCODONE/ACETAMINOPHEN (5/325) TAB PO PRN ×2 (06:13→21:27)
[2016-10-18 08:10] VITALS: BP 105/51; RESP 18
[2016-10-18] MEDS: INSULIN ASPART [NOVOLOG] 3 ML PEN SC SCH ×4 (08:15→21:24)
[2016-10-18] MEDS: LISINOPRIL 5 MG TAB PO SCH (08:16)
[2016-10-18] MEDS: ASPIRIN 81 MG TAB PO SCH (08:16)
[2016-10-18] MEDS: GABAPENTIN 300 MG CAP PO SCH ×3 (08:16→21:19)
[2016-10-18] MEDS: HEPARIN 5,000 UNIT/0.5 ML SYG SC SCH ×2 (08:23→21:24)
[2016-10-18] MEDS: metroNIDAZOLE 500 MG TAB PO SCH ×3 (09:57→21:20)
--- NOTE | 2016-10-18 10:17 | RADRPT ---
PROCEDURE: CT angiogram of the abdomen and pelvis with IV contrast. CLINICAL INDICATION: Gangrene. TECHNIQUE: Thin section axial, coronal and sagittal images were performed through the abdomen and pelvis without contrast and then following the injection of 100 cc of Isovue 370. Radiation Dose: CTDI: 14.3 a and DLP: 941.4 One or more of the following dose reduction techniques were used: - Automated exposure control. - Adjustment of the mA and/or kV according to patient size. Use of iterative reconstruction technique. COMPARISON: Right foot 09/17/2016. FINDINGS: Soft tissues: There is anasarca around the circumference of the pelvis and lower extremities. There is a midline anterior abdominal wall scar from a incision. There is thickening of the skin surface over the anterior abdominal wall which could be the result of a cellulitis or post an echogenic maria ge. Clinical correlation is needed. No subcutaneous abscess is identified. There is a 0.9 cm nodu le over the left lower abdomen at the level of the umbilicus. There is extensive skin thickening in the area of the left hip with postsurgical contour changes not ed in the scan. There are metal clips related to prior surgery with removal of the left femoral hea d and left femur. There is amputation of the left lower extremity. Lungs and pleural spaces: The lungs are free of infiltrate. No pleural effusion is identified. The pulmonary vasculature is normal. Heart: Normal. No pericardial effusion is present. The liver, common bile duct and gallbladder: There is fatty infiltration of the liver. No hepatic m ass or intrahepatic biliary ductal dilatation is identified. The gallbladder and gallbladder wall a re normal. Gastrointestinal: The stomach is normal. There is a small amount of free intraperitoneal fluid cons istent with ascites. No mechanical bowel obstruction is identified. The small bowel loops are miguel l. There is fecal material in the cecum and ascending colon. There are small diverticula in the de scending colon. There is narrowing of the distal sigmoid colon which likely represents incomplete d istension. There is an incisional hernia containing omental fat and a portion of the sigmoid colon in the mid p macarena. There are phlegmonous changes in the area of the hernia with a subcutaneous metal clip identi fied in the same area. No definite abscess is noted. Pancreas: Normal. The extrahepatic common bile duct is normal. Kidneys, bladder and adrenal glands : The adrenal glands and kidneys are normal. The wall of the ur inary bladder is thickened. This could be the result of a cystitis or incomplete distension. Spleen: Normal. Lymph nodes: There are 2 small retroperitoneal lymph nodes ventral to the inferior vena cava measuri ng 6 and 5 mm in size respectively at the level of the celiac artery. No enlarged retroperitoneal, periportal, mesenteric or pelvic sidewall lymph nodes are identified. Reproductive system and pelvis : The uterus is retroflexed and normal in size. A 7.7 millimeter bryanna cifications noted on the left fundus of the uterus and may be the result of a subserosal calcified l eiomyoma or adjacent phlebolith. No abnormal adnexal mass is identified. Bony elements: The left lower extremity was amputated with removal of the femur from the acetabulum. There is extensive postsurgical change with scarring and tissue deformity in the area of the left hip. There are degenerative changes in the thoracic and lumbar spine. There is vacuum disk phenomenon an d disk space narrowing with ventral spondylosis at L4-5. There is a 6 mm AP dorsal disk bulge at L4 -5. No acute bony fracture or bone metastasis is identified. There is no radiographic evidence of osteomyelitis involving the right lower extremity. There is a small ulcer at the distal end of the left great toe adjacent to the distal right phalanx. Vasculature: The lower thoracic and abdominal aorta are patent with no evidence of an aneurysm. The re are vascular calcifications in the mid and distal abdominal aorta. The celiac artery and its bra nches are patent. The superior mesenteric artery and its branches are patent. The inferior mesente te artery is patent. There are vascular calcifications in the right left common iliac arteries with soft thrombus. There is no evidence of a stenosis. The right and left internal and external iliac arteries are patent. There is thrombosed in the distal left common femoral artery with occlusion of the the distal left c ommon femoral artery. There is a stenosis and eventual occlusion of the left profundus femoris sherri ry. The right profunda femoris artery is patent. There is extensive atherosclerotic vascular calcification in the right superficial femoral artery wi th scattered segmental stenoses along the length of the vessel. There is a 62% stenosis in the prox imal right superficial femoral artery. There is a high-grade long segmental stenosis of the mid right superficial femoral artery. There is thrombus in the distal right superficial femoral artery without evidence of total occlusio n. There is a high-grade stenosis in the mid right popliteal artery. There is thrombus in the right po pliteal artery. The distal portion right popliteal artery is patent with runoff noted into the ante rior tibial, posterior tibial and right peroneal arteries. There is soft tissue swelling of the rig ht lower extremity. The dorsalis pedis artery shows areas of segmental narrowing but remains patent. There are segmenta l occlusions in the distal portion of the right posterior tibial artery. There is a high-grade stenosis at the level of the ankle of the distal right peroneal artery. IMPRESSION: 1. Status post amputation of the left lower extremity with thrombus and occlusion of the distal lef t common femoral artery and profunda femoris artery. Post surgical soft tissue changes in the area of the left hip. No evidence of an abscess. 2. Extensive atherosclerotic vascular calcifications involving the right superficial femoral artery with high-grade proximal right superficial femoral artery stenosis measuring 62%. 3. Scattered segmental stenoses along the entire length of the right superficial femoral artery. 4. Thrombosis facet extensive thrombus without total occlusion involving the distal right superfici al femoral artery. Before high-grade stenosis mid right popliteal artery with thrombus in the distal right popliteal artery. 5. Runoff into the trifurcation vessels is maintained but segmental occlusions are present the dist al portion of the right posterior tibial artery and there is a high-grade stenosis at the level of t he ankle of the distal right peroneal artery. 6. Ulceration adjacent to the distal right first phalanx. 7. Postsurgical changes in the left hip with amputation of the left lower extremity. 8. See body of report for other findings involving the intra-abdominal organs. RPTAT:AAJJ Vascular stenosis reference: NASCET = 100 X (D-N)/ D N = GREATEST NARROWING D = NORMAL DISTAL DIAMETER MILD = LESS THAN 50% NARROWING MODERATE = 50-60% STENOSIS SEVERE = 70-89% STENOSIS OCCLUDED = 100% STENOSIS Physician Fred Date Time Electronically viewed and signed by Physician Fred on 10/18/2016 10:16 OBDULIA/
--- NOTE | 2016-10-18 14:30 | CONS ---
Date/Time of Note Date/Time of Note DATE: 10/18/16 TIME: 14:28 Assessment/Plan Assessment/Plan Chief Complaint/Hosp Course SUBJECTIVE: Alert, looks comfortable, no fevers. ANTIMICROBIALS: 1. Vancomycin. 2. Rocephin. 3. Flagyl PHYSICAL EXAMINATION: GENERAL: This is a well-nourished, well-developed, middle-aged woman who is alert, in no distress. HEENT: Head atraumatic, normocephalic. Sclerae anicteric. Buccal mucosa dry. NECK: Supple. CHEST: Rise symmetrical. Breath sounds diminished to bases. HEART: S1, S2. ABDOMEN: Soft. Bowel tones present. EXTREMITIES: With right foot gangrenous changes. ASSESSMENT: 1. Right foot cellulitis with gangrene. 2. Peripheral vascular disease. 3. Hypertension. 4. 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 5. C dif PLAN: Clinically unchanged. Continue present care, antibiotics, f/u vascular rec-s DW staff Problems: Consultation Date/Type/Reason Admit Date/Time Oct 14, 2016 at 16:41 Type of Consultation: id Referring Provider: JOAQUINA MCKEON MD Exam/Review of Systems Vital Signs Vitals Vital Signs Date Time Temp Pulse Resp B/P Pulse Ox O2 Delivery O2 Flow Rate FiO2 10/18/16 08:10 97.9 66 18 105/51 97 Intake and Output 10/17/16 10/17/16 10/18/16 15:00 23:00 07:00 Intake Total 1150 ml 1020 ml 990 ml Output Total 1650 ml Balance 1150 ml -630 ml 990 ml Results Result Diagram: 10/17/16 0450 10/17/16 0450 Results 24 hrs Laboratory Tests Test 10/17/16 17:29 10/17/16 20:45 10/17/16 21:08 10/18/16 03:17 Bedside Glucose 114 243 H 164 Vancomycin Level Trough 10.8 Test 10/18/16 08:15 10/18/16 12:18 Bedside Glucose 109 182 Medications Medications Current Medications Aspirin (Aspirin) 81 mg DAILY PO Last administered on 10/18/16 08:16; Admin Dose 81 MG; Start 10/14/16 at 09:00 Gabapentin (Neurontin) 300 mg TID PO Last administered on 10/18/16 13:46; Admin Dose 300 MG; Start 10/13/16 at 21:00 Insulin Glargine (Lantus) 5 unit HS SC Last administered on 10/17/16 21:20; Admin Dose 5 UNIT; Start 10/13/16 at 21:00 Atorvastatin Calcium (Lipitor) 10 mg HS PO Last administered on 10/17/16 21:09 ; Admin Dose 10 MG; Start 10/13/16 at 21:00 Ondansetron HCl (Zofran Inj) 4 mg Q6H PRN IV NAUSEA AND/OR VOMITING; Start at 15:30 Acetaminophen (Tylenol Tab) 650 mg Q6H PRN PO PAIN LEVEL 1-3 OR FEVER; Start at 15:30 Acetaminophen (Tylenol Supp) 650 mg Q6H PRN [place] PAIN LEVEL 1-3 OR FEVER; Start 10/13/16 at 15:30 Oxycodone/ Acetaminophen (Percocet (5/ 325)) 1 tab Q6H PRN PO MODERATE PAIN LEVEL 4-6 Last administered on 10/18/16 06:13; Admin Dose 1 TAB; Start at 15:30 Morphine Sulfate (morphine) 1 mg Q4H PRN IV SEVERE PAIN LEVEL 7-10 Last administered on 10/18/16 00:28; Admin Dose 1 MG; Start 10/13/16 at 15:30 Docusate Sodium (Colace) 100 mg Q12H PRN PO CONSTIPATION; Start 10/13/16 at 15: 30 Bisacodyl (Dulcolax) 5 mg DAILY PRN PO CONSTIPATION; Start 10/13/16 at 15:30 Pantoprazole 40 mg 40 mg DAILY@06 PO Last administered on 10/18/16 06:07; Admin Dose 40 MG; Start 10/14/16 at 06:00 Ceftriaxone Sodium (Rocephin) 50 ml @ 100 mls/hr Q24H IVPB Last administered on 10/17/16 15:30; Admin Dose 100 MLS/HR; Start 10/13/16 at 15:30 Diphenhydramine HCl (Benadryl) 25 mg Q6H PRN PO ITCHING; Start 10/13/16 at 15: 30 Miscellaneous Information 1 ea NOTE XX ; Start 10/13/16 at 16:00 Glucose (Glutose) 15 gm Q15M PRN PO DECREASED GLUCOSE; Start 10/13/16 at 16:00 Glucose (Glutose) 22.5 gm Q15M PRN PO DECREASED GLUCOSE; Start 10/13/16 at 16: 00 Dextrose (D50w Syringe) 25 ml Q15M PRN IV DECREASED GLUCOSE; Start 10/13/16 at 16:00 Dextrose (D50w Syringe) 50 ml Q15M PRN IV DECREASED GLUCOSE; Start 10/13/16 at 16:00 Glucagon (Glucagen) 1 mg Q15M PRN IM DECREASED GLUCOSE; Start 10/13/16 at 16:00 Glucose 15 gm 15 gm Q15M PRN BUCCAL DECREASED GLUCOSE; Start 10/13/16 at 16:00 Dextrose/Sodium Chloride (D5-1/2ns) 1,000 ml @ 50 mls/hr Q20H IV Last administered on 10/18/16 13:46; Admin Dose 50 MLS/HR; Start 10/14/16 at 00:00 Heparin Sodium (Porcine) (Heparin (5000 Units/0.5 ml)) 5,000 unit BID SC Last administered on 10/18/16 08:23; Admin Dose 5,000 UNIT; Start 10/13/16 at 21:00 Hydralazine HCl (Apresoline) 10 mg Q6H PRN IV SBP >160 Last administered on 19:56; Admin Dose 10 MG; Start 10/13/16 at 20:00 Lisinopril 5 mg 5 mg DAILY PO ; Start 10/17/16 at 09:00 Vancomycin HCl (Vancocin) 250 ml @ 125 mls/hr Q12H IVPB Last administered on 05:50; Admin Dose 125 MLS/HR; Start 10/18/16 at 06:00 Metronidazole (Flagyl) 500 mg Q8 PO Last administered on 10/18/16 13:46; Admin Dose 500 MG; Start 10/18/16 at 09:30 KATHERYN RINALDI NP Oct 18, 2016 14:29
--- NOTE | 2016-10-18 15:15 | PN ---
DATE: 10/18/2016 SUBJECTIVE: Chart reviewed. Cardiology evaluation noted and appreciated. Lexiscan was negative fo r ischemia. Currently, patient is saturating 98% and does not appear in acute distress. PHYSICAL EXAMINATION: VITAL SIGNS: Blood pressure 105/51, pulse 66, respirations 18, temperature 97.9. HEENT: Pupils are equal and reactive to light. Anicteric sclerae. NECK: Supple, no JVD noted, no cervical adenopathy, no carotid bruits heard. LUNGS: Fair breath sounds bilaterally. CARDIOVASCULAR: S1, S2 normal. ABDOMEN: Soft, nontender. No organomegaly or masses noted. EXTREMITIES: Right foot fourth and fifth toe gangrenous changes status post left lower extremity AK A. No edema or cyanosis noted. NEUROLOGICAL: Awake. IMAGING: Aortogram findings noted. IMPRESSION: 1. Right foot cellulitis and gangrene of the toes. 2. Severe peripheral vascular disease. 3. Diabetes mellitus. 4. Hypertension. 5. Diabetic neuropathy. 6. Anemia. RECOMMENDATIONS: 1. Cardiology recommendations appreciated. 2. Continue current antibiotics per ID recommendation. 3. We will proceed with vascular surgery. 4. Discussed with the staff. Dictated By: MOHINI LEE MD, MA/TRACE Conf#: [id number] DID#: [id number]
[2016-10-18] MEDS: CEFTRIAXONE 1 GM/50 ML (PMX) 50 ML IVPB SCH (15:16)
--- NOTE | 2016-10-18 17:58 | CONS ---
Date/Time of Note Date/Time of Note DATE: 10/18/16 TIME: 17:56 Assessment/Plan Assessment/Plan Additional Assessment/Plan 1. Preoperative evaluation prior to possible lower extremity revascularization. - No ischemia by lexiscan and NL EF by echo with no sig valve abnl. Thus ok to proceed with surgery at relatively low to moderate risk on current medications without further noninvasive evaluation. VASCULAR TO FOLLOW. Pain at night in RLE noted, better duringthe day per pt. 2. Abnormal electrocardiogram with T-wave flattening isolated to the aVL.- negative troponin x 3 - no cp now 3. Hypertension with currently borderline hypotension today- BP stable - no change 4. History of dyslipidemia. 5. Diabetes mellitus- con't to keep euglycemic. 6. Peripheral arterial disease with right lower extremity gangrenous changes- awaiting surgical dispo 7. Status post left [id number] amputation. 8. Anemia. Consultation Date/Type/Reason Admit Date/Time Oct 14, 2016 at 16:41 Type of Consultation: id Referring Provider: JOAQUINA MCKEON MD 24 HR Interval Summary Free Text/Dictation No acute change - pt reported LE pain at night, better now. Off tele - no CP noted. ROS: No fever, no chills, no nausea, no vomiting, no diarrhea/constipation No recent weight changes No chest pain, no PND, no orthopnea No dizziness, blurred vision No thirst, no heat or cold intolerance Exam/Review of Systems Vital Signs Vitals Vital Signs Date Time Temp Pulse Resp B/P Pulse Ox O2 Delivery O2 Flow Rate FiO2 10/18/16 08:10 97.9 66 18 105/51 97 Intake and Output 10/17/16 10/17/16 10/18/16 15:00 23:00 07:00 Intake Total 1150 ml 1020 ml 990 ml Output Total 1650 ml Balance 1150 ml -630 ml 990 ml Exam General: WN/WD/NAD, AOx 3 HEENT: Unicetric/atraumatic/EOMI (follows commands) NECK: JVD elevated, no thyromegaly Lymph: no lymphadenopathy HEART: regular with no S3, II/ systolic murmur at apex LUNGS: Coarse sounds ABD: soft, NT, ND, +BS : Intact Neuro: non focal SKIN: chronic changes EXT: gangrene/bandages Results Result Diagram: 10/17/16 0450 10/17/16 0450 Results 24 hrs Laboratory Tests Test 10/17/16 20:45 10/17/16 21:08 10/18/16 03:17 10/18/16 08:15 Vancomycin Level Trough 10.8 Bedside Glucose 243 H 164 109 Test 10/18/16 12:18 10/18/16 16:45 Bedside Glucose 182 132 Medications Medications Current Medications Aspirin (Aspirin) 81 mg DAILY PO Last administered on 10/18/16 08:16; Admin Dose 81 MG; Start 10/14/16 at 09:00 Gabapentin (Neurontin) 300 mg TID PO Last administered on 10/18/16 13:46; Admin Dose 300 MG; Start 10/13/16 at 21:00 Insulin Glargine (Lantus) 5 unit HS SC Last administered on 10/17/16 21:20; Admin Dose 5 UNIT; Start 10/13/16 at 21:00 Atorvastatin Calcium (Lipitor) 10 mg HS PO Last administered on 10/17/16 21:09 ; Admin Dose 10 MG; Start 10/13/16 at 21:00 Ondansetron HCl (Zofran Inj) 4 mg Q6H PRN IV NAUSEA AND/OR VOMITING; Start at 15:30 Acetaminophen (Tylenol Tab) 650 mg Q6H PRN PO PAIN LEVEL 1-3 OR FEVER; Start at 15:30 Acetaminophen (Tylenol Supp) 650 mg Q6H PRN [place] PAIN LEVEL 1-3 OR FEVER; Start 10/13/16 at 15:30 Oxycodone/ Acetaminophen (Percocet (5/ 325)) 1 tab Q6H PRN PO MODERATE PAIN LEVEL 4-6 Last administered on 10/18/16 06:13; Admin Dose 1 TAB; Start at 15:30 Morphine Sulfate (morphine) 1 mg Q4H PRN IV SEVERE PAIN LEVEL 7-10 Last administered on 10/18/16 00:28; Admin Dose 1 MG; Start 10/13/16 at 15:30 Docusate Sodium (Colace) 100 mg Q12H PRN PO CONSTIPATION; Start 10/13/16 at 15: 30 Bisacodyl (Dulcolax) 5 mg DAILY PRN PO CONSTIPATION; Start 10/13/16 at 15:30 Pantoprazole 40 mg 40 mg DAILY@06 PO Last administered on 10/18/16 06:07; Admin Dose 40 MG; Start 10/14/16 at 06:00 Ceftriaxone Sodium (Rocephin) 50 ml @ 100 mls/hr Q24H IVPB Last administered on 10/18/16 15:16; Admin Dose 100 MLS/HR; Start 10/13/16 at 15:30 Diphenhydramine HCl (Benadryl) 25 mg Q6H PRN PO ITCHING; Start 10/13/16 at 15: 30 Miscellaneous Information 1 ea NOTE XX ; Start 10/13/16 at 16:00 Glucose (Glutose) 15 gm Q15M PRN PO DECREASED GLUCOSE; Start 10/13/16 at 16:00 Glucose (Glutose) 22.5 gm Q15M PRN PO DECREASED GLUCOSE; Start 10/13/16 at 16: 00 Dextrose (D50w Syringe) 25 ml Q15M PRN IV DECREASED GLUCOSE; Start 10/13/16 at 16:00 Dextrose (D50w Syringe) 50 ml Q15M PRN IV DECREASED GLUCOSE; Start 10/13/16 at 16:00 Glucagon (Glucagen) 1 mg Q15M PRN IM DECREASED GLUCOSE; Start 10/13/16 at 16:00 Glucose 15 gm 15 gm Q15M PRN BUCCAL DECREASED GLUCOSE; Start 10/13/16 at 16:00 Dextrose/Sodium Chloride (D5-1/2ns) 1,000 ml @ 50 mls/hr Q20H IV Last administered on 10/18/16 13:46; Admin Dose 50 MLS/HR; Start 10/14/16 at 00:00 Heparin Sodium (Porcine) (Heparin (5000 Units/0.5 ml)) 5,000 unit BID SC Last administered on 10/18/16 08:23; Admin Dose 5,000 UNIT; Start 10/13/16 at 21:00 Hydralazine HCl (Apresoline) 10 mg Q6H PRN IV SBP >160 Last administered on 19:56; Admin Dose 10 MG; Start 10/13/16 at 20:00 Lisinopril 5 mg 5 mg DAILY PO ; Start 10/17/16 at 09:00 Vancomycin HCl (Vancocin) 250 ml @ 125 mls/hr Q12H IVPB Last administered on 05:50; Admin Dose 125 MLS/HR; Start 10/18/16 at 06:00 Metronidazole (Flagyl) 500 mg Q8 PO Last administered on 10/18/16 13:46; Admin Dose 500 MG; Start 10/18/16 at 09:30 APRYL IVY MD Oct 18, 2016 17:58
[2016-10-18 19:55] VITALS: BP 160/67; RESP 18
[2016-10-18] MEDS: ATORVASTATIN 10 MG TAB PO SCH (21:19)
[2016-10-18] MEDS: INSULIN GLARGINE [LANtus] 3 ML PEN SC SCH (21:24)
[2016-10-19] MEDS: PANTOPRAZOLE (EC) 40 MG TAB PO SCH (05:54)
[2016-10-19] MEDS: metroNIDAZOLE 500 MG TAB PO SCH ×3 (05:54→21:23)
[2016-10-19] MEDS: VANCOMYCIN 1 GM in NS 250 ML IVPB SCH ×2 (05:54→17:52)
[2016-10-19 06:30] LABS: CREATININE 0.45 mg/dl (0.44-1.00)
[2016-10-19] MEDS: INSULIN ASPART [NOVOLOG] 3 ML PEN SC SCH ×4 (08:15→21:00)
[2016-10-19 08:27] VITALS: BP 153/69; RESP 16
[2016-10-19] MEDS: ASPIRIN 81 MG TAB PO SCH (09:27)
[2016-10-19] MEDS: ONDANSETRON 4 MG INJ IV PRN (09:27)
[2016-10-19] MEDS: LISINOPRIL 5 MG TAB PO SCH (09:28)
[2016-10-19] MEDS: GABAPENTIN 300 MG CAP PO SCH ×3 (09:29→21:23)
--- NOTE | 2016-10-19 09:35 | PN ---
Date/Time of Note Date/Time of Note DATE: 10/19/16 TIME: 09:32 Assessment/Plan VTE Prophylaxis VTE Prophylaxis Intervention: heparin Lines/Catheters IV C[facility]ter Type (from [facility] PICC Line Central line still needed: Yes (IV abx for Gangrene ) Assessment/Plan Assessment/Plan ASSESSMENT: 1. Right foot cellulitis with gangrene. 2. Peripheral vascular disease. 3. Hypertension. 4. 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 5. Diabetic neuropathy 6. anemia of chronic Disease Plan: Continue current care Bp stable awaiting plan from vascular surgery IV abx, ID following heparin for DVT prophylaxis Subjective 24 Hr Interval Summary Free Text/Dictation s/p CT angiogram, Awaiting plan from vascular surgery < BP stable Exam/Review of Systems Vital Signs Vitals Vital Signs Date Time Temp Pulse Resp B/P Pulse Ox O2 Delivery O2 Flow Rate FiO2 10/19/16 08:27 98.3 72 16 153/69 98 Intake and Output 10/18/16 10/18/16 10/19/16 15:00 23:00 07:00 Intake Total 450 ml 1270 ml 1410 ml Output Total 700 ml 3100 ml Balance 450 ml 570 ml -1690 ml Exam HEENT: Pupils are equal and reactive to light. Anicteric sclerae. NECK: Supple, no JVD noted, no cervical adenopathy, no carotid bruits heard. LUNGS: Fair breath sounds bilaterally. CARDIOVASCULAR: S1, S2 normal. ABDOMEN: Soft, nontender. No organomegaly or masses noted. EXTREMITIES: Right foot fourth and fifth toe gangrenous changes status post left lower extremity AKA. No edema or cyanosis noted. NEUROLOGICAL: Awake. Results Result Diagram: 10/17/16 0450 10/19/16 0552 Results 24 hrs Laboratory Tests Test 10/18/16 12:18 10/18/16 16:45 10/18/16 21:17 10/19/16 02:16 Bedside Glucose 182 132 201 153 Test 10/19/16 05:52 Blood Urea Nitrogen 8 Creatinine 0.45 Medications Medications Current Medications Aspirin (Aspirin) 81 mg DAILY PO Last administered on 10/18/16 08:16; Admin Dose 81 MG; Start 10/14/16 at 09:00 Gabapentin (Neurontin) 300 mg TID PO Last administered on 10/18/16 21:19; Admin Dose 300 MG; Start 10/13/16 at 21:00 Insulin Glargine (Lantus) 5 unit HS SC Last administered on 10/18/16 21:24; Admin Dose 5 UNIT; Start 10/13/16 at 21:00 Atorvastatin Calcium (Lipitor) 10 mg HS PO Last administered on 10/18/16 21:19 ; Admin Dose 10 MG; Start 10/13/16 at 21:00 Ondansetron HCl (Zofran Inj) 4 mg Q6H PRN IV NAUSEA AND/OR VOMITING; Start at 15:30 Acetaminophen (Tylenol Tab) 650 mg Q6H PRN PO PAIN LEVEL 1-3 OR FEVER; Start at 15:30 Acetaminophen (Tylenol Supp) 650 mg Q6H PRN [place] PAIN LEVEL 1-3 OR FEVER; Start 10/13/16 at 15:30 Oxycodone/ Acetaminophen (Percocet (5/ 325)) 1 tab Q6H PRN PO MODERATE PAIN LEVEL 4-6 Last administered on 10/18/16 21:27; Admin Dose 1 TAB; Start at 15:30 Morphine Sulfate (morphine) 1 mg Q4H PRN IV SEVERE PAIN LEVEL 7-10 Last administered on 10/18/16 00:28; Admin Dose 1 MG; Start 10/13/16 at 15:30 Docusate Sodium (Colace) 100 mg Q12H PRN PO CONSTIPATION; Start 10/13/16 at 15: 30 Bisacodyl (Dulcolax) 5 mg DAILY PRN PO CONSTIPATION; Start 10/13/16 at 15:30 Pantoprazole 40 mg 40 mg DAILY@06 PO Last administered on 10/19/16 05:54; Admin Dose 40 MG; Start 10/14/16 at 06:00 Ceftriaxone Sodium (Rocephin) 50 ml @ 100 mls/hr Q24H IVPB Last administered on 10/18/16 15:16; Admin Dose 100 MLS/HR; Start 10/13/16 at 15:30 Diphenhydramine HCl (Benadryl) 25 mg Q6H PRN PO ITCHING; Start 10/13/16 at 15: 30 Miscellaneous Information 1 ea NOTE XX ; Start 10/13/16 at 16:00 Glucose (Glutose) 15 gm Q15M PRN PO DECREASED GLUCOSE; Start 10/13/16 at 16:00 Glucose (Glutose) 22.5 gm Q15M PRN PO DECREASED GLUCOSE; Start 10/13/16 at 16: 00 Dextrose (D50w Syringe) 25 ml Q15M PRN IV DECREASED GLUCOSE; Start 10/13/16 at 16:00 Dextrose (D50w Syringe) 50 ml Q15M PRN IV DECREASED GLUCOSE; Start 10/13/16 at 16:00 Glucagon (Glucagen) 1 mg Q15M PRN IM DECREASED GLUCOSE; Start 10/13/16 at 16:00 Glucose 15 gm 15 gm Q15M PRN BUCCAL DECREASED GLUCOSE; Start 10/13/16 at 16:00 Dextrose/Sodium Chloride (D5-1/2ns) 1,000 ml @ 50 mls/hr Q20H IV Last administered on 10/18/16 13:46; Admin Dose 50 MLS/HR; Start 10/14/16 at 00:00 Heparin Sodium (Porcine) (Heparin (5000 Units/0.5 ml)) 5,000 unit BID SC Last administered on 10/18/16 21:24; Admin Dose 5,000 UNIT; Start 10/13/16 at 21:00 Hydralazine HCl (Apresoline) 10 mg Q6H PRN IV SBP >160 Last administered on 19:56; Admin Dose 10 MG; Start 10/13/16 at 20:00 Lisinopril 5 mg 5 mg DAILY PO ; Start 10/17/16 at 09:00 Vancomycin HCl (Vancocin) 250 ml @ 125 mls/hr Q12H IVPB Last administered on 05:54; Admin Dose 125 MLS/HR; Start 10/18/16 at 06:00 Metronidazole (Flagyl) 500 mg Q8 PO Last administered on 10/19/16 05:54; Admin Dose 500 MG; Start 10/18/16 at 09:30 ALYSSA VENCES MD Oct 19, 2016 09:35
[2016-10-19] MEDS: HEPARIN 5,000 UNIT/0.5 ML SYG SC SCH ×2 (09:36→21:49)
--- NOTE | 2016-10-19 10:41 | CONS ---
Date/Time of Note Date/Time of Note DATE: 10/19/16 TIME: 10:39 Assessment/Plan Assessment/Plan Chief Complaint/Hosp Course IMPRESSION: 1. Preoperative evaluation prior to possible lower extremity revascularization. - No ischemia by lexiscan and NL EF by echo with no sig valve abnl. Thus ok to proceed with surgery at relatively low to moderate risk on current medications without further noninvasive evaluation. 2. Abnormal electrocardiogram with T-wave flattening isolated to the aVL.- negative troponin x 3 3. Hypertension with currently borderline hypotension today. 4. History of dyslipidemia. 5. Diabetes mellitus. 6. Peripheral arterial disease with right lower extremity gangrenous changes. 7. Status post left [id number] amputation. 8. Anemia. Recc: -Tele -Continue asa -Continue statin -Continue ACEI and follow BP closely -Pnding vascular procedure Problems: Consultation Date/Type/Reason Admit Date/Time Oct 14, 2016 at 16:41 Initial Consult Date 10/14/2016 Type of Consultation: Cardiology Reason for Consultation Pre-op Referring Provider: JOAQUINA MCKEON MD Exam/Review of Systems Vital Signs Vitals Vital Signs Date Time Temp Pulse Resp B/P Pulse Ox O2 Delivery O2 Flow Rate FiO2 10/19/16 08:27 98.3 72 16 153/69 98 Intake and Output 10/18/16 10/18/16 10/19/16 15:00 23:00 07:00 Intake Total 450 ml 1270 ml 1410 ml Output Total 700 ml 3100 ml Balance 450 ml 570 ml -1690 ml Exam Review of Systems: CONSTITUTIONAL: No fevers, chills. PULMONARY: No sob CARDIOVASCULAR: No chest pain/palpitations GASTROINTESTINAL: No nausea/vomiting. GENITOURINARY: No hematuria/dysuria. MUSCULOSKELETAL: Mild pain in foot PSYCHIATRIC: The patient denies depression. NEUROLOGIC: No weakness Constitutional: alert Psych: no complaints Head: normocephalic ENMT: mucosa pink and moist Neck: jvd, supple Respiratory: diminished breath sounds (at bases/B) Cardiovascular: regular rate and rhythm Gastrointestinal: non-tender, soft Musculoskeletal: muscle tone (normal) Extremities: edema (none) Neurological: other (No focal deficits) Results Result Diagram: 10/17/16 0450 10/19/16 0552 Results 24 hrs Laboratory Tests Test 10/18/16 12:18 10/18/16 16:45 10/18/16 21:17 10/19/16 02:16 Bedside Glucose 182 132 201 153 Test 10/19/16 05:52 10/19/16 09:24 Blood Urea Nitrogen 8 Creatinine 0.45 Bedside Glucose 136 Medications Medications Current Medications Aspirin (Aspirin) 81 mg DAILY PO Last administered on 10/19/16 09:27; Admin Dose 81 MG; Start 10/14/16 at 09:00 Gabapentin (Neurontin) 300 mg TID PO Last administered on 10/19/16 09:29; Admin Dose 300 MG; Start 10/13/16 at 21:00 Insulin Glargine (Lantus) 5 unit HS SC Last administered on 10/18/16 21:24; Admin Dose 5 UNIT; Start 10/13/16 at 21:00 Atorvastatin Calcium (Lipitor) 10 mg HS PO Last administered on 10/18/16 21:19 ; Admin Dose 10 MG; Start 10/13/16 at 21:00 Ondansetron HCl (Zofran Inj) 4 mg Q6H PRN IV NAUSEA AND/OR VOMITING Last administered on 10/19/16 09:27; Admin Dose 4 MG; Start 10/13/16 at 15:30 Acetaminophen (Tylenol Tab) 650 mg Q6H PRN PO PAIN LEVEL 1-3 OR FEVER; Start at 15:30 Acetaminophen (Tylenol Supp) 650 mg Q6H PRN [place] PAIN LEVEL 1-3 OR FEVER; Start 10/13/16 at 15:30 Oxycodone/ Acetaminophen (Percocet (5/ 325)) 1 tab Q6H PRN PO MODERATE PAIN LEVEL 4-6 Last administered on 10/18/16 21:27; Admin Dose 1 TAB; Start at 15:30 Morphine Sulfate (morphine) 1 mg Q4H PRN IV SEVERE PAIN LEVEL 7-10 Last administered on 10/18/16 00:28; Admin Dose 1 MG; Start 10/13/16 at 15:30 Docusate Sodium (Colace) 100 mg Q12H PRN PO CONSTIPATION; Start 10/13/16 at 15: 30 Bisacodyl (Dulcolax) 5 mg DAILY PRN PO CONSTIPATION; Start 10/13/16 at 15:30 Pantoprazole 40 mg 40 mg DAILY@06 PO Last administered on 10/19/16 05:54; Admin Dose 40 MG; Start 10/14/16 at 06:00 Ceftriaxone Sodium (Rocephin) 50 ml @ 100 mls/hr Q24H IVPB Last administered on 10/18/16 15:16; Admin Dose 100 MLS/HR; Start 10/13/16 at 15:30 Diphenhydramine HCl (Benadryl) 25 mg Q6H PRN PO ITCHING; Start 10/13/16 at 15: 30 Miscellaneous Information 1 ea NOTE XX ; Start 10/13/16 at 16:00 Glucose (Glutose) 15 gm Q15M PRN PO DECREASED GLUCOSE; Start 10/13/16 at 16:00 Glucose (Glutose) 22.5 gm Q15M PRN PO DECREASED GLUCOSE; Start 10/13/16 at 16: 00 Dextrose (D50w Syringe) 25 ml Q15M PRN IV DECREASED GLUCOSE; Start 10/13/16 at 16:00 Dextrose (D50w Syringe) 50 ml Q15M PRN IV DECREASED GLUCOSE; Start 10/13/16 at 16:00 Glucagon (Glucagen) 1 mg Q15M PRN IM DECREASED GLUCOSE; Start 10/13/16 at 16:00 Glucose 15 gm 15 gm Q15M PRN BUCCAL DECREASED GLUCOSE; Start 10/13/16 at 16:00 Dextrose/Sodium Chloride (D5-1/2ns) 1,000 ml @ 50 mls/hr Q20H IV Last administered on 10/18/16 13:46; Admin Dose 50 MLS/HR; Start 10/14/16 at 00:00 Heparin Sodium (Porcine) (Heparin (5000 Units/0.5 ml)) 5,000 unit BID SC Last administered on 10/19/16 09:36; Admin Dose 5,000 UNIT; Start 10/13/16 at 21:00 Hydralazine HCl (Apresoline) 10 mg Q6H PRN IV SBP >160 Last administered on 19:56; Admin Dose 10 MG; Start 10/13/16 at 20:00 Lisinopril 5 mg 5 mg DAILY PO Last administered on 10/19/16 09:28; Admin Dose 5 MG; Start 10/17/16 at 09:00 Vancomycin HCl (Vancocin) 250 ml @ 125 mls/hr Q12H IVPB Last administered on 05:54; Admin Dose 125 MLS/HR; Start 10/18/16 at 06:00 Metronidazole (Flagyl) 500 mg Q8 PO Last administered on 10/19/16 05:54; Admin Dose 500 MG; Start 10/18/16 at 09:30 KAYLEIGH NORIEGA Oct 19, 2016 10:41
[2016-10-19] MEDS ORDERED: IODIXANOL LOCM 50 ML BTL ONE (13:20)
[2016-10-19] MEDS ORDERED: LIDOCAINE 1% (MDV) 20 ML INJ ONE (13:20)
[2016-10-19] MEDS ORDERED: SOD CHLORIDE 0.9% 500 ML ONE (13:21)
[2016-10-19] MEDS ORDERED: MIDAZOLAM 1 MG/ML 2 ML INJ ONE (13:25)
--- NOTE | 2016-10-19 13:38 | CONS ---
Date/Time of Note Date/Time of Note DATE: 10/19/16 TIME: 13:37 Assessment/Plan Assessment/Plan Chief Complaint/Hosp Course SUBJECTIVE: Alert, looks comfortable, no fevers. ANTIMICROBIALS: 1. Vancomycin. 2. Rocephin. 3. Flagyl PHYSICAL EXAMINATION: GENERAL: This is a well-nourished, well-developed, middle-aged woman who is alert, in no distress. HEENT: Head atraumatic, normocephalic. Sclerae anicteric. Buccal mucosa dry. NECK: Supple. CHEST: Rise symmetrical. Breath sounds diminished to bases. HEART: S1, S2. ABDOMEN: Soft. Bowel tones present. EXTREMITIES: With right foot gangrenous changes. ASSESSMENT: 1. Right foot cellulitis with gangrene. 2. Peripheral vascular disease. 3. Hypertension. 4. 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 Continue present care, antibiotics,card/vascular rec-s DW staff Problems: Consultation Date/Type/Reason Admit Date/Time Oct 14, 2016 at 16:41 Type of Consultation: id Referring Provider: JOAQUINA MCKEON MD Exam/Review of Systems Vital Signs Vitals Vital Signs Date Time Temp Pulse Resp B/P Pulse Ox O2 Delivery O2 Flow Rate FiO2 10/19/16 08:27 98.3 72 16 153/69 98 Intake and Output 10/18/16 10/18/16 10/19/16 15:00 23:00 07:00 Intake Total 450 ml 1270 ml 1410 ml Output Total 700 ml 3100 ml Balance 450 ml 570 ml -1690 ml Results Result Diagram: 10/17/16 0450 10/19/16 0552 Results 24 hrs Laboratory Tests Test 10/18/16 16:45 10/18/16 21:17 10/19/16 02:16 10/19/16 05:52 Bedside Glucose 132 201 153 Blood Urea Nitrogen 8 Creatinine 0.45 Test 10/19/16 09:24 10/19/16 11:57 Bedside Glucose 136 131 Medications Medications Current Medications Aspirin (Aspirin) 81 mg DAILY PO Last administered on 10/19/16 09:27; Admin Dose 81 MG; Start 10/14/16 at 09:00 Gabapentin (Neurontin) 300 mg TID PO Last administered on 10/19/16 11:57; Admin Dose 300 MG; Start 10/13/16 at 21:00 Insulin Glargine (Lantus) 5 unit HS SC Last administered on 10/18/16 21:24; Admin Dose 5 UNIT; Start 10/13/16 at 21:00 Atorvastatin Calcium (Lipitor) 10 mg HS PO Last administered on 10/18/16 21:19 ; Admin Dose 10 MG; Start 10/13/16 at 21:00 Ondansetron HCl (Zofran Inj) 4 mg Q6H PRN IV NAUSEA AND/OR VOMITING Last administered on 10/19/16 09:27; Admin Dose 4 MG; Start 10/13/16 at 15:30 Acetaminophen (Tylenol Tab) 650 mg Q6H PRN PO PAIN LEVEL 1-3 OR FEVER; Start at 15:30 Acetaminophen (Tylenol Supp) 650 mg Q6H PRN [place] PAIN LEVEL 1-3 OR FEVER; Start 10/13/16 at 15:30 Oxycodone/ Acetaminophen (Percocet (5/ 325)) 1 tab Q6H PRN PO MODERATE PAIN LEVEL 4-6 Last administered on 10/18/16 21:27; Admin Dose 1 TAB; Start at 15:30 Morphine Sulfate (morphine) 1 mg Q4H PRN IV SEVERE PAIN LEVEL 7-10 Last administered on 10/18/16 00:28; Admin Dose 1 MG; Start 10/13/16 at 15:30 Docusate Sodium (Colace) 100 mg Q12H PRN PO CONSTIPATION; Start 10/13/16 at 15: 30 Bisacodyl (Dulcolax) 5 mg DAILY PRN PO CONSTIPATION; Start 10/13/16 at 15:30 Pantoprazole 40 mg 40 mg DAILY@06 PO Last administered on 10/19/16 05:54; Admin Dose 40 MG; Start 10/14/16 at 06:00 Ceftriaxone Sodium (Rocephin) 50 ml @ 100 mls/hr Q24H IVPB Last administered on 10/18/16 15:16; Admin Dose 100 MLS/HR; Start 10/13/16 at 15:30 Diphenhydramine HCl (Benadryl) 25 mg Q6H PRN PO ITCHING; Start 10/13/16 at 15: 30 Miscellaneous Information 1 ea NOTE XX ; Start 10/13/16 at 16:00 Glucose (Glutose) 15 gm Q15M PRN PO DECREASED GLUCOSE; Start 10/13/16 at 16:00 Glucose (Glutose) 22.5 gm Q15M PRN PO DECREASED GLUCOSE; Start 10/13/16 at 16: 00 Dextrose (D50w Syringe) 25 ml Q15M PRN IV DECREASED GLUCOSE; Start 10/13/16 at 16:00 Dextrose (D50w Syringe) 50 ml Q15M PRN IV DECREASED GLUCOSE; Start 10/13/16 at 16:00 Glucagon (Glucagen) 1 mg Q15M PRN IM DECREASED GLUCOSE; Start 10/13/16 at 16:00 Glucose 15 gm 15 gm Q15M PRN BUCCAL DECREASED GLUCOSE; Start 10/13/16 at 16:00 Dextrose/Sodium Chloride (D5-1/2ns) 1,000 ml @ 50 mls/hr Q20H IV Last administered on 10/18/16 13:46; Admin Dose 50 MLS/HR; Start 10/14/16 at 00:00 Heparin Sodium (Porcine) (Heparin (5000 Units/0.5 ml)) 5,000 unit BID SC Last administered on 10/19/16 09:36; Admin Dose 5,000 UNIT; Start 10/13/16 at 21:00 Hydralazine HCl (Apresoline) 10 mg Q6H PRN IV SBP >160 Last administered on 19:56; Admin Dose 10 MG; Start 10/13/16 at 20:00 Lisinopril 5 mg 5 mg DAILY PO Last administered on 10/19/16 09:28; Admin Dose 5 MG; Start 10/17/16 at 09:00 Vancomycin HCl (Vancocin) 250 ml @ 125 mls/hr Q12H IVPB Last administered on 05:54; Admin Dose 125 MLS/HR; Start 10/18/16 at 06:00 Metronidazole (Flagyl) 500 mg Q8 PO Last administered on 10/19/16 05:54; Admin Dose 500 MG; Start 10/18/16 at 09:30 KATHERYN RINALDI NP Oct 19, 2016 13:38
[2016-10-19 14:08] VITALS: BP 133/62; RESP 18
[2016-10-19] MEDS: CEFTRIAXONE 1 GM/50 ML (PMX) 50 ML IVPB SCH (14:19)
[2016-10-19 14:20] VITALS: BP 117/59; PULSE 69; RESP 20
[2016-10-19 20:03] VITALS: BP 165/74; RESP 18
[2016-10-19] MEDS: ATORVASTATIN 10 MG TAB PO SCH (21:23)
[2016-10-19] MEDS: OXYCODONE/ACETAMINOPHEN (5/325) TAB PO PRN (21:28)
[2016-10-19] MEDS: DEXTROSE 5%-0.45% NACL 1,000 ML IV SCH ×2 (21:33)
[2016-10-19] MEDS: INSULIN GLARGINE [LANtus] 3 ML PEN SC SCH (21:48)
--- NOTE | 2016-10-19 23:12 | OPR ---
DATE OF OPERATION: 10/19/2016 SURGEON: Zhou Giraldo MD FLUOROSCOPY SNYDER: Carlos Perez DPM PREOPERATIVE DIAGNOSIS: Right lower extremity gangrene. POSTOPERATIVE DIAGNOSIS: Right lower extremity gangrene. ANESTHESIA: Local with sedation. ESTIMATED BLOOD LOSS: Minimal. COMPLICATIONS: None. HEPARIN: None. CONTRAST: As recorded. ACCESS: Right common femoral artery 4-German sheath. CLOSURE: Manual compression. SEDATION: Under physician supervision, moderate sedation was administered intravenously under frank nuous monitoring by the interventional team and attending physician. Pulse oximeter, heart rate, an d BPs were continuously monitored by interventional surgeon. The physicians spent time was 30 minut es of face [id number] sedation time with the patient. INDICATIONS: This is a 50-year-old female who presented with a history of left lower extremity gas gangrene in which she underwent an eventual left hip disarticulation in which she still has a stump wound that is being managed with local wound care. The patient now presents with right lower extrem ity diabetic foot infection and gangrene of her fourth and fifth toes with tissue loss and diminishe d pedal pulses. Upon CT angiography, it was identified the patient having severe tibial disease; ho wever, it cannot be determined if she has adequate flow. Therefore, an angiogram was suggested. Th e patient had been informed of the alternatives, risks, and benefits of the angiogram, balloon angio plasty, stenting, and atherectomy. The risks included but not limited to bleeding, thrombosis, embo lization, myocardial infarction, , device malfunction, infection, nephrotoxicity. The patient has agreed to proceed. This is the first diagnostic angiogram in this clinical setting after we had obtained CTA in which adequate visualization of the tibia was not identified. PROCEDURE: 1. Ultrasound-guided access of the right common femoral artery. 2. Aortoiliac angiogram. 3. Right lower extremity angiogram. FINDINGS: 1. Bilateral renal arteries are patent. 2. Infrarenal aorta is patent. 3. Bilateral common iliac artery, internal iliac arteries are patent. 4. Left external iliac artery is partially patent, as it occludes near the inguinal ligament second rebecca to the patient having a hip disarticulation. 5. Right external iliac is patent. 6. The right common femoral artery is patent. 7. Right profunda femoral artery is patent proximally; however, distally, after the second perforat ing branch, has moderate to severe disease. 8. The right superficial femoral artery has moderate to severe disease in its proximal aspect. 9. Right above-knee popliteal artery with mild to moderate disease. 10. Right at-knee popliteal artery is patent. 11. Right below-knee popliteal artery is patent with small in caliber. 12. Right tibioperoneal trunk is patent with severe disease. 13. Peroneal artery is occluded. 14. Posterior tibial artery seems to be occluded. There are some collaterals that follow the same course. 15. Right anterior tibial artery his patent, however, small in caliber. 16. Right distal anterior tibial artery with moderate to severe disease right at the ankle joint. 17. Right dorsalis pedis artery is patent. 18. Right dorsalis pedis artery continues into a tarsal artery that is moderately diseased. 19. The right digital arteries are visualized that come off of the tarsal artery and dorsalis pedis with moderate to severe disease. 20. Some reconstitution of the distal peroneal artery that has what seems to be a posterior communi cating branch that connects with some collaterals. 21. Right common plantar artery not visualized. 22. Right medial and lateral plantar arteries not visualized. DESCRIPTION OF PROCEDURE: The patient was brought to the angio suite and positioned in supine posit ion on the fluoroscopic table. Sedation was administered without complications. The right groin wa s shaved, prepped, and draped in the usual standard sterile fashion. Timeout and appropriate site w as marked and confirmed. Local anesthesia was infiltrated in the region of the right common femoral artery. The artery was cannulated with a micro access needle under ultrasound guidance and a guide wire was advanced into the iliac artery under fluoroscopic guidance. The needle was then removed an d a micro catheter was placed. A [employer] wire was then passed into the infrarenal aorta under fluor oscopic guidance followed by a short 4-German sheath over the wire. The sheath was then appropriate ly flushed with heparinized saline solution. Omniflush catheter was then passed into the suprarenal aorta and aortogram and imaging of the iliac arteries was performed. Findings are noted above. At this point, the Omniflush catheter was then removed from the sheath and right lower extremity angio gram was performed through the sheath. At this point, it was determined not to intervene and sheath was removed and pressure was held and patient was taken to postanesthesia care unit in stable condi tion. All instrument, sponge counts, and needles were correct x2. PLAN: Essentially, the patient does have some moderate to severe disease in the proximal superficia l femoral artery and has severe tibial and pedal disease. We will discuss with the patient, as the patient does have adequate flow to the foot without any flow limiting stenosis regions. The patient is limited with adequate conduit, as she only has groin to the thigh, that the vein in the appropri ate size and will determine if she would require intervention prior to her surgical debridement. Dictated By: ZHOU EPPERSON/TRACE Conf#: [id number] DID#: [id number] CC: GIUSEPPE BRITO MD;*EndCC*
--- NOTE | 2016-10-19 23:24 | CONS ---
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 (3) Diabetes mellitus with polyneuropathy (4) Open wound of right foot (5) Peripheral vascular disease Consultation Date/Type/Reason Admit Date/Time Oct 14, 2016 at 16:41 Psychological: no complaints Social History Smoking Status: Never smoker Exam/Review of Systems Vital Signs Vitals Vital Signs Date Time Temp Pulse Resp B/P Pulse Ox O2 Delivery O2 Flow Rate FiO2 10/19/16 20:03 98.2 71 18 165/74 97 10/19/16 14:20 Room Air Intake and Output 10/18/16 10/18/16 10/19/16 15:00 23:00 07:00 Intake Total 450 ml 1270 ml 1410 ml Output Total 700 ml 3100 ml Balance 450 ml 570 ml -1690 ml Results Result Diagram: 10/17/16 0450 10/19/16 0552 Results 24 hrs Laboratory Tests Test 10/19/16 02:16 10/19/16 05:52 10/19/16 09:24 10/19/16 11:57 Bedside Glucose 153 136 131 Blood Urea Nitrogen 8 Creatinine 0.45 Test 10/19/16 17:45 10/19/16 21:32 Bedside Glucose 178 110 Medications Medications Current Medications Aspirin (Aspirin) 81 mg DAILY PO Last administered on 10/19/16 09:27; Admin Dose 81 MG; Start 10/14/16 at 09:00 Gabapentin (Neurontin) 300 mg TID PO Last administered on 10/19/16 21:23; Admin Dose 300 MG; Start 10/13/16 at 21:00 Insulin Glargine (Lantus) 5 unit HS SC Last administered on 10/19/16 21:48; Admin Dose 5 UNIT; Start 10/13/16 at 21:00 Atorvastatin Calcium (Lipitor) 10 mg HS PO Last administered on 10/19/16 21:23 ; Admin Dose 10 MG; Start 10/13/16 at 21:00 Ondansetron HCl (Zofran Inj) 4 mg Q6H PRN IV NAUSEA AND/OR VOMITING Last administered on 10/19/16 09:27; Admin Dose 4 MG; Start 10/13/16 at 15:30 Acetaminophen (Tylenol Tab) 650 mg Q6H PRN PO PAIN LEVEL 1-3 OR FEVER; Start at 15:30 Acetaminophen (Tylenol Supp) 650 mg Q6H PRN [place] PAIN LEVEL 1-3 OR FEVER; Start 10/13/16 at 15:30 Oxycodone/ Acetaminophen (Percocet (5/ 325)) 1 tab Q6H PRN PO MODERATE PAIN LEVEL 4-6 Last administered on 10/19/16 21:28; Admin Dose 1 TAB; Start at 15:30 Morphine Sulfate (morphine) 1 mg Q4H PRN IV SEVERE PAIN LEVEL 7-10 Last administered on 10/18/16 00:28; Admin Dose 1 MG; Start 10/13/16 at 15:30 Docusate Sodium (Colace) 100 mg Q12H PRN PO CONSTIPATION; Start 10/13/16 at 15: 30 Bisacodyl (Dulcolax) 5 mg DAILY PRN PO CONSTIPATION; Start 10/13/16 at 15:30 Pantoprazole 40 mg 40 mg DAILY@06 PO Last administered on 10/19/16 05:54; Admin Dose 40 MG; Start 10/14/16 at 06:00 Ceftriaxone Sodium (Rocephin) 50 ml @ 100 mls/hr Q24H IVPB Last administered on 10/19/16 14:19; Admin Dose 100 MLS/HR; Start 10/13/16 at 15:30 Diphenhydramine HCl (Benadryl) 25 mg Q6H PRN PO ITCHING; Start 10/13/16 at 15: 30 Miscellaneous Information 1 ea NOTE XX ; Start 10/13/16 at 16:00 Glucose (Glutose) 15 gm Q15M PRN PO DECREASED GLUCOSE; Start 10/13/16 at 16:00 Glucose (Glutose) 22.5 gm Q15M PRN PO DECREASED GLUCOSE; Start 10/13/16 at 16: 00 Dextrose (D50w Syringe) 25 ml Q15M PRN IV DECREASED GLUCOSE; Start 10/13/16 at 16:00 Dextrose (D50w Syringe) 50 ml Q15M PRN IV DECREASED GLUCOSE; Start 10/13/16 at 16:00 Glucagon (Glucagen) 1 mg Q15M PRN IM DECREASED GLUCOSE; Start 10/13/16 at 16:00 Glucose 15 gm 15 gm Q15M PRN BUCCAL DECREASED GLUCOSE; Start 10/13/16 at 16:00 Dextrose/Sodium Chloride (D5-1/2ns) 1,000 ml @ 50 mls/hr Q20H IV Last administered on 10/19/16 21:33; Admin Dose 50 MLS/HR; Start 10/14/16 at 00:00 Heparin Sodium (Porcine) (Heparin (5000 Units/0.5 ml)) 5,000 unit BID SC Last administered on 10/19/16 21:49; Admin Dose 5,000 UNIT; Start 10/13/16 at 21:00 Hydralazine HCl (Apresoline) 10 mg Q6H PRN IV SBP >160 Last administered on 19:56; Admin Dose 10 MG; Start 10/13/16 at 20:00 Lisinopril 5 mg 5 mg DAILY PO Last administered on 10/19/16 09:28; Admin Dose 5 MG; Start 10/17/16 at 09:00 Vancomycin HCl (Vancocin) 250 ml @ 125 mls/hr Q12H IVPB Last administered on 17:52; Admin Dose 125 MLS/HR; Start 10/18/16 at 06:00 Metronidazole (Flagyl) 500 mg Q8 PO Last administered on 10/19/16 21:23; Admin Dose 500 MG; Start 10/18/16 at 09:30 MARIANA LING DPM Oct 19, 2016 23:24
[2016-10-20] MEDS: ACETAMINOPHEN 325 MG TAB PO PRN (00:01)
[2016-10-20 00:06] VITALS: BP 145/70; PULSE 65; RESP 22
[2016-10-20 05:50] LABS: INR 1.22; PROTIME 15.5 Sec (12.2-14.2); PT RATIO 1.2
[2016-10-20 05:51] LABS: PARTIAL THROMBOPLASTIN TIME 34.8 Sec (25.0-35.0)
[2016-10-20] MEDS: PANTOPRAZOLE (EC) 40 MG TAB PO SCH (06:06)
[2016-10-20] MEDS: VANCOMYCIN 1 GM in NS 250 ML IVPB SCH ×2 (06:06→18:24)
[2016-10-20] MEDS: metroNIDAZOLE 500 MG TAB PO SCH ×3 (06:06→21:31)
[2016-10-20 06:10] LABS: ALBUMIN 3.2 g/dl (3.3-4.9)
[2016-10-20 06:13] LABS: CREATININE 0.44 mg/dl (0.44-1.00)
[2016-10-20 06:14] LABS: CALCIUM 8.3 mg/dl (8.4-10.2); TOTAL PROTEIN 6.4 g/dl (6.1-8.1)
[2016-10-20 06:55] LABS: POTASSIUM 2.9 mmol/L (3.5-5.1)
[2016-10-20] MEDS ORDERED: POTASSIUM CHLORIDE (SR) 20 MEQ TAB PO STA (07:02)
[2016-10-20 07:28] VITALS: BP 81/33; RESP 18
[2016-10-20 07:40] VITALS: BP 147/73; PULSE 72; PULSE 76
[2016-10-20] MEDS: ONDANSETRON 4 MG INJ IV PRN (07:47)
[2016-10-20] MEDS: INSULIN ASPART [NOVOLOG] 3 ML PEN SC SCH ×4 (08:15→21:00)
[2016-10-20] MEDS ORDERED: POTASSIUM CHLORIDE (SR) 20 MEQ TAB PO ONE (09:30)
[2016-10-20] MEDS: ASPIRIN 81 MG TAB PO SCH (09:39)
[2016-10-20] MEDS: GABAPENTIN 300 MG CAP PO SCH ×3 (09:39→21:31)
[2016-10-20] MEDS: LISINOPRIL 5 MG TAB PO SCH (09:40)
[2016-10-20] MEDS: HEPARIN 5,000 UNIT/0.5 ML SYG SC SCH ×2 (09:43→22:35)
[2016-10-20 09:47] VITALS: BP 149/78; PULSE 88
--- NOTE | 2016-10-20 10:55 | CONS ---
Date/Time of Note Date/Time of Note DATE: 10/20/16 TIME: 10:54 Assessment/Plan Assessment/Plan Additional Assessment/Plan 1. Preoperative evaluation prior to possible lower extremity revascularization. - No ischemia by lexiscan and NL EF by echo with no sig valve abnl. Thus ok to proceed with surgery at relatively low to moderate risk on current medications without further noninvasive evaluation. VASCULAR TO FOLLOW. Pain Rx in progress. 2. Abnormal electrocardiogram with T-wave flattening isolated to the aVL.- negative troponin x 3 - no cp now 3. Hypertension with currently borderline hypotension today- BP stable - no change 4. History of dyslipidemia. 5. Diabetes mellitus- con't to keep euglycemic- stable now. 6. Peripheral arterial disease with right lower extremity gangrenous changes- awaiting surgical dispo 7. Status post left [id number] amputation. 8. Anemia. Consultation Date/Type/Reason Admit Date/Time Oct 14, 2016 at 16:41 Type of Consultation: id Referring Provider: JOAQUINA MCKEON MD 24 HR Interval Summary Free Text/Dictation No acute change - vascular follows - con't med rx. ROS: No fever, no chills, no nausea, no vomiting, no diarrhea/constipation No recent weight changes No chest pain, no PND, no orthopnea No dizziness, blurred vision No thirst, no heat or cold intolerance Exam/Review of Systems Vital Signs Vitals Vital Signs Date Time Temp Pulse Resp B/P Pulse Ox O2 Delivery O2 Flow Rate FiO2 10/20/16 09:47 88 149/78 10/20/16 07:28 98.0 18 98 10/20/16 00:06 Room Air Intake and Output 10/19/16 10/19/16 10/20/16 15:00 23:00 07:00 Intake Total 300 ml 2090 ml 700 ml Output Total 1600 ml 2000 ml Balance 300 ml 490 ml -1300 ml Exam General: WN/WD/NAD, AOx 3 HEENT: Unicetric/atraumatic/EOMI (follow commands) NECK: JVD elevated, no thyromegaly Lymph: no lymphadenopathy HEART: regular with no S3, II/ systolic murmur at apex LUNGS: Coarse sounds ABD: soft, NT, ND, +BS : Intact Neuro: non focal SKIN: chronic changes EXT: PVd/gangrene Results Result Diagram: 10/17/16 0450 10/20/16 0528 Results 24 hrs Laboratory Tests Test 10/19/16 11:57 10/19/16 17:45 10/19/16 21:32 10/20/16 05:21 Bedside Glucose 131 178 110 Activated Partial Thromboplast Time 34.8 INR International Normalized Ratio 1.22 Prothrombin Time 15.5 H Prothrombin Time Ratio 1.2 Test 10/20/16 05:28 10/20/16 08:19 Alanine Aminotransferase (ALT/SGPT) 25 Albumin 3.2 L Albumin/Globulin Ratio 1.00 Alkaline Phosphatase 77 Anion Gap 14 Aspartate Amino Transf (AST/SGOT) 18 Blood Urea Nitrogen 7 Calcium Level 8.3 L Carbon Dioxide Level 29 Chloride Level 104 Creatinine 0.44 Direct Bilirubin 0.00 Globulin 3.20 Glucose Level 105 Indirect Bilirubin 0.0 Potassium Level 2.9 *L Sodium Level 144 Total Bilirubin 0.0 L Total Protein 6.4 Bedside Glucose 122 Medications Medications Current Medications Aspirin (Aspirin) 81 mg DAILY PO Last administered on 10/20/16 09:39; Admin Dose 81 MG; Start 10/14/16 at 09:00 Gabapentin (Neurontin) 300 mg TID PO Last administered on 10/20/16 09:39; Admin Dose 300 MG; Start 10/13/16 at 21:00 Insulin Glargine (Lantus) 5 unit HS SC Last administered on 10/19/16 21:48; Admin Dose 5 UNIT; Start 10/13/16 at 21:00 Atorvastatin Calcium (Lipitor) 10 mg HS PO Last administered on 10/19/16 21:23 ; Admin Dose 10 MG; Start 10/13/16 at 21:00 Ondansetron HCl (Zofran Inj) 4 mg Q6H PRN IV NAUSEA AND/OR VOMITING Last administered on 10/20/16 07:47; Admin Dose 4 MG; Start 10/13/16 at 15:30 Acetaminophen (Tylenol Tab) 650 mg Q6H PRN PO PAIN LEVEL 1-3 OR FEVER Last administered on 10/20/16 00:01; Admin Dose 650 MG; Start 10/13/16 at 15:30 Acetaminophen (Tylenol Supp) 650 mg Q6H PRN [place] PAIN LEVEL 1-3 OR FEVER; Start 10/13/16 at 15:30 Oxycodone/ Acetaminophen (Percocet (5/ 325)) 1 tab Q6H PRN PO MODERATE PAIN LEVEL 4-6 Last administered on 10/19/16 21:28; Admin Dose 1 TAB; Start at 15:30 Morphine Sulfate (morphine) 1 mg Q4H PRN IV SEVERE PAIN LEVEL 7-10 Last administered on 10/18/16 00:28; Admin Dose 1 MG; Start 10/13/16 at 15:30 Docusate Sodium (Colace) 100 mg Q12H PRN PO CONSTIPATION; Start 10/13/16 at 15: 30 Bisacodyl (Dulcolax) 5 mg DAILY PRN PO CONSTIPATION; Start 10/13/16 at 15:30 Pantoprazole 40 mg 40 mg DAILY@06 PO Last administered on 10/20/16 06:06; Admin Dose 40 MG; Start 10/14/16 at 06:00 Ceftriaxone Sodium (Rocephin) 50 ml @ 100 mls/hr Q24H IVPB Last administered on 10/19/16 14:19; Admin Dose 100 MLS/HR; Start 10/13/16 at 15:30 Diphenhydramine HCl (Benadryl) 25 mg Q6H PRN PO ITCHING; Start 10/13/16 at 15: 30 Miscellaneous Information 1 ea NOTE XX ; Start 10/13/16 at 16:00 Glucose (Glutose) 15 gm Q15M PRN PO DECREASED GLUCOSE; Start 10/13/16 at 16:00 Glucose (Glutose) 22.5 gm Q15M PRN PO DECREASED GLUCOSE; Start 10/13/16 at 16: 00 Dextrose (D50w Syringe) 25 ml Q15M PRN IV DECREASED GLUCOSE; Start 10/13/16 at 16:00 Dextrose (D50w Syringe) 50 ml Q15M PRN IV DECREASED GLUCOSE; Start 10/13/16 at 16:00 Glucagon (Glucagen) 1 mg Q15M PRN IM DECREASED GLUCOSE; Start 10/13/16 at 16:00 Glucose 15 gm 15 gm Q15M PRN BUCCAL DECREASED GLUCOSE; Start 10/13/16 at 16:00 Dextrose/Sodium Chloride (D5-1/2ns) 1,000 ml @ 50 mls/hr Q20H IV Last administered on 10/19/16 21:33; Admin Dose 50 MLS/HR; Start 10/14/16 at 00:00 Heparin Sodium (Porcine) (Heparin (5000 Units/0.5 ml)) 5,000 unit BID SC Last administered on 10/20/16 09:43; Admin Dose 5,000 UNIT; Start 10/13/16 at 21:00 Hydralazine HCl (Apresoline) 10 mg Q6H PRN IV SBP >160 Last administered on 19:56; Admin Dose 10 MG; Start 10/13/16 at 20:00 Lisinopril 5 mg 5 mg DAILY PO Last administered on 10/20/16 09:40; Admin Dose 5 MG; Start 10/17/16 at 09:00 Vancomycin HCl (Vancocin) 250 ml @ 125 mls/hr Q12H IVPB Last administered on 06:06; Admin Dose 125 MLS/HR; Start 10/18/16 at 06:00 Metronidazole (Flagyl) 500 mg Q8 PO Last administered on 10/20/16 06:06; Admin Dose 500 MG; Start 10/18/16 at 09:30 Miscellaneous Information (*Rx Drug Level Order Reminder*) VANCO TROUGH @ 1, 700 ON... ONCE ONCE XX ; Start 10/20/16 at 17:00; Stop 10/20/16 at 17:01 APRYL IVY MD Oct 20, 2016 10:55
--- NOTE | 2016-10-20 14:08 | PN ---
DATE: 10/20/2016 INFECTIOUS DISEASE PROGRESS NOTE SUBJECTIVE: The patient is alert, sitting comfortably in a chair. Denies pain , no fevers, no diarrhea. LABORATORY DATA: No CBC this morning. ANTIMICROBIALS: She is on: 1. IV vancomycin. 2. Oral Flagyl. 3. Rocephin. PHYSICAL EXAMINATION: GENERAL: Well-developed, middle-aged woman who is alert, in no distress. HEENT: Head atraumatic, normocephalic. Sclerae anicteric. Buccal mucosa pink. NECK: Supple. CHEST: Rise symmetrical. Breath sounds clear. HEART: S1, S2. ABDOMEN: Soft, bowel sounds present. EXTREMITIES: With right foot dressing intact. ASSESSMENT: 1. Right foot gangrene. 2. Severe peripheral vascular disease. 3. 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 4. Hypertension. 5. C dif PLAN: The patient remains stable, status post angiogram. Podiatry is on case. Vascular follows. We will continue her on current antimicrobials. Dictated By: KATHERYN RINALDI CATERPILLAR OPERATOR for [employer] Conf#: [id number] DID#: [id number] MTDD
[2016-10-20] MEDS: CEFTRIAXONE 1 GM/50 ML (PMX) 50 ML IVPB SCH (15:11)
[2016-10-20] MEDS: DEXTROSE 5%-0.45% NACL 1,000 ML IV SCH (16:00)
--- NOTE | 2016-10-20 16:46 | PN ---
Date/Time of Note Date/Time of Note DATE: 10/20/16 TIME: 16:44 Assessment/Plan VTE Prophylaxis VTE Prophylaxis Intervention: heparin Lines/Catheters IV Catheter Type (from Nrs): PICC Line Central line still needed: Yes (IV abx ) Assessment/Plan Assessment/Plan ASSESSMENT: 1. Right foot cellulitis with gangrene.s/p LE angiogram showed moderate obstructive PAD 2. Peripheral vascular disease. 3. Hypertension. 4. 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 5. Diabetic neuropathy 6. anemia of chronic Disease Plan: Continue current care Bp stable awaiting plan from vascular surgery after Angiogram, Podiatry and ID is also following IV abx, ID following heparin for DVT prophylaxis Subjective 24 Hr Interval Summary Free Text/Dictation s/p angiogram showed moderate diease, podiatry consulted, BP stable Exam/Review of Systems Vital Signs Vitals Vital Signs Date Time Temp Pulse Resp B/P Pulse Ox O2 Delivery O2 Flow Rate FiO2 10/20/16 09:47 88 149/78 10/20/16 07:28 98.0 18 98 10/20/16 00:06 Room Air Intake and Output 10/19/16 10/19/16 10/20/16 15:00 23:00 07:00 Intake Total 300 ml 2090 ml 700 ml Output Total 1600 ml 2000 ml Balance 300 ml 490 ml -1300 ml Exam HEENT: Pupils are equal and reactive to light. Anicteric sclerae. NECK: Supple, no JVD noted, no cervical adenopathy, no carotid bruits heard. LUNGS: Fair breath sounds bilaterally. CARDIOVASCULAR: S1, S2 normal. ABDOMEN: Soft, nontender. No organomegaly or masses noted. EXTREMITIES: Right foot fourth and fifth toe gangrenous changes status post left lower extremity AKA. No edema or cyanosis noted. NEUROLOGICAL: Awake. Results Result Diagram: 10/17/16 0450 10/20/16 1205 Results 24 hrs Laboratory Tests Test 10/19/16 17:45 10/19/16 21:32 10/20/16 05:21 10/20/16 05:28 Bedside Glucose 178 110 Activated Partial Thromboplast Time 34.8 INR International Normalized Ratio 1.22 Prothrombin Time 15.5 H Prothrombin Time Ratio 1.2 Alanine Aminotransferase (ALT/SGPT) 25 Albumin 3.2 L Albumin/Globulin Ratio 1.00 Alkaline Phosphatase 77 Anion Gap 14 Aspartate Amino Transf (AST/SGOT) 18 Blood Urea Nitrogen 7 Calcium Level 8.3 L Carbon Dioxide Level 29 Chloride Level 104 Creatinine 0.44 Direct Bilirubin 0.00 Globulin 3.20 Glucose Level 105 Indirect Bilirubin 0.0 Potassium Level 2.9 *L Sodium Level 144 Total Bilirubin 0.0 L Total Protein 6.4 Test 10/20/16 08:19 10/20/16 12:05 10/20/16 12:11 Bedside Glucose 122 223 H Potassium Level 4.3 Medications Medications Current Medications Aspirin (Aspirin) 81 mg DAILY PO Last administered on 10/20/16 09:39; Admin Dose 81 MG; Start 10/14/16 at 09:00 Gabapentin (Neurontin) 300 mg TID PO Last administered on 10/20/16 12:24; Admin Dose 300 MG; Start 10/13/16 at 21:00 Insulin Glargine (Lantus) 5 unit HS SC Last administered on 10/19/16 21:48; Admin Dose 5 UNIT; Start 10/13/16 at 21:00 Atorvastatin Calcium (Lipitor) 10 mg HS PO Last administered on 10/19/16 21:23 ; Admin Dose 10 MG; Start 10/13/16 at 21:00 Ondansetron HCl (Zofran Inj) 4 mg Q6H PRN IV NAUSEA AND/OR VOMITING Last administered on 10/20/16 07:47; Admin Dose 4 MG; Start 10/13/16 at 15:30 Acetaminophen (Tylenol Tab) 650 mg Q6H PRN PO PAIN LEVEL 1-3 OR FEVER Last administered on 10/20/16 00:01; Admin Dose 650 MG; Start 10/13/16 at 15:30 Acetaminophen (Tylenol Supp) 650 mg Q6H PRN [place] PAIN LEVEL 1-3 OR FEVER; Start 10/13/16 at 15:30 Oxycodone/ Acetaminophen (Percocet (5/ 325)) 1 tab Q6H PRN PO MODERATE PAIN LEVEL 4-6 Last administered on 10/19/16 21:28; Admin Dose 1 TAB; Start at 15:30 Morphine Sulfate (morphine) 1 mg Q4H PRN IV SEVERE PAIN LEVEL 7-10 Last administered on 10/18/16 00:28; Admin Dose 1 MG; Start 10/13/16 at 15:30 Docusate Sodium (Colace) 100 mg Q12H PRN PO CONSTIPATION; Start 10/13/16 at 15: 30 Bisacodyl (Dulcolax) 5 mg DAILY PRN PO CONSTIPATION; Start 10/13/16 at 15:30 Pantoprazole 40 mg 40 mg DAILY@06 PO Last administered on 10/20/16 06:06; Admin Dose 40 MG; Start 10/14/16 at 06:00 Ceftriaxone Sodium (Rocephin) 50 ml @ 100 mls/hr Q24H IVPB Last administered on 10/20/16 15:11; Admin Dose 100 MLS/HR; Start 10/13/16 at 15:30 Diphenhydramine HCl (Benadryl) 25 mg Q6H PRN PO ITCHING; Start 10/13/16 at 15: 30 Miscellaneous Information 1 ea NOTE XX ; Start 10/13/16 at 16:00 Glucose (Glutose) 15 gm Q15M PRN PO DECREASED GLUCOSE; Start 10/13/16 at 16:00 Glucose (Glutose) 22.5 gm Q15M PRN PO DECREASED GLUCOSE; Start 10/13/16 at 16: 00 Dextrose (D50w Syringe) 25 ml Q15M PRN IV DECREASED GLUCOSE; Start 10/13/16 at 16:00 Dextrose (D50w Syringe) 50 ml Q15M PRN IV DECREASED GLUCOSE; Start 10/13/16 at 16:00 Glucagon (Glucagen) 1 mg Q15M PRN IM DECREASED GLUCOSE; Start 10/13/16 at 16:00 Glucose 15 gm 15 gm Q15M PRN BUCCAL DECREASED GLUCOSE; Start 10/13/16 at 16:00 Dextrose/Sodium Chloride (D5-1/2ns) 1,000 ml @ 50 mls/hr Q20H IV Last administered on 10/19/16 21:33; Admin Dose 50 MLS/HR; Start 10/14/16 at 00:00 Heparin Sodium (Porcine) (Heparin (5000 Units/0.5 ml)) 5,000 unit BID SC Last administered on 10/20/16 09:43; Admin Dose 5,000 UNIT; Start 10/13/16 at 21:00 Hydralazine HCl (Apresoline) 10 mg Q6H PRN IV SBP >160 Last administered on 19:56; Admin Dose 10 MG; Start 10/13/16 at 20:00 Lisinopril 5 mg 5 mg DAILY PO Last administered on 10/20/16 09:40; Admin Dose 5 MG; Start 10/17/16 at 09:00 Vancomycin HCl (Vancocin) 250 ml @ 125 mls/hr Q12H IVPB Last administered on 06:06; Admin Dose 125 MLS/HR; Start 10/18/16 at 06:00 Metronidazole (Flagyl) 500 mg Q8 PO Last administered on 10/20/16 15:11; Admin Dose 500 MG; Start 10/18/16 at 09:30 Miscellaneous Information (*Rx Drug Level Order Reminder*) VANCO TROUGH @ 1, 700 ON... ONCE ONCE XX ; Start 10/20/16 at 17:00; Stop 10/20/16 at 17:01 ALYSSA VENCES MD Oct 20, 2016 16:46
--- NOTE | 2016-10-20 18:00 | RADRPT ---
Vent Rate: 70 bpm RR Interval: 0 msec TN Interval: 150 msec QRS Duration: 72 msec QT Interval: 420 msec QTC Interval: 453 msec P-R-T [place]: 68 - -31 - 66 degrees Normal sinus rhythm Left axis deviation Abnormal ECG Electronically Signed By: Shai Plascencia [id number]
--- NOTE | 2016-10-20 19:10 | PN ---
Date/Time of Note Date/Time of Note DATE: 10/20/16 TIME: 19:04 Assessment/Plan Lines/Catheters IV Catheter Type (from [facility]): PICC Line Assessment/Plan Chief Complaint/Hosp Course -Bilateral lower extremity atherosclerosis with gangrene: S/P RLE angiogram that demonstrated infrainguinal disease. The patient does have in line flow to the foot and her gangrene has become dry and not progressed. in light of her CDiff active infection will await for that to resolve and recommend debridement for now. Will follow wound very closely and evlaute her perfusion intraop. If concern for wound healing is present then would recommend Endovascular intervention in an Antegrade fashion. - he patient has developed a right lower extremity gangrene in which it is a very complicated situation as the patient has had a left hip disarticulation and providing her with vascular interventions is limited. Upon our extensive discussion with the patient she has been very emotional and has asked for everything that can be done to preserve her right lower extremity. Patient is quite dependent per her family and herself to about 80% with her right lower extremity in terms of being able to transfer and her mobility at home. We have provided her offer of conservative therapy for the wound care and eventual amputation if she has an infection that is threatening her life. We have mentioned that if she develops rest pain that it is intolerable and then an amputation at that point. We have also offered her possible right lower extremity angiogram to further delineate her tibioperoneal disease and evaluate the areas that have been found to be monophasic with ultrasound. I have spoken with the family that she may require a revascularization and they have agreed to have everything done, no matter the risks entailed. -Optimize vascular status (BP meds, diet, nutrition, exercise, sugar control, antiplatelets). -Continue antibiotics per ID -Appreciate cardiology feedback -Discussed findings, plan and management with the patient and she understands with a certified archivist political history. -Thank you for allowing us to partake in the care of your patient. Please call with any questions. Problems: Subjective 24 Hr Interval Summary no new vascular events overnight, pt is positive Cdiff Exam/Review of Systems Vital Signs Vitals Vital Signs Date Time Temp Pulse Resp B/P Pulse Ox O2 Delivery O2 Flow Rate FiO2 10/20/16 09:47 88 149/78 10/20/16 07:28 98.0 18 98 10/20/16 00:06 Room Air Intake and Output 10/19/16 10/19/16 10/20/16 15:00 23:00 07:00 Intake Total 300 ml 2090 ml 700 ml Output Total 1600 ml 2000 ml Balance 300 ml 490 ml -1300 ml Exam Free Text/Dictation GENERAL: Alert and oriented x3, PULMONARY: Clear to auscultation bilaterally. CARDIOVASCULAR: S1, S2 present. ABDOMEN: Soft, nontender, nondistended. Bowel sounds positive. Midline incision with surgical scar that is well healed. Bowel sounds positive. EXTREMITIES: Left lower extremity: left hip disarticulation surgical scar, mid aspect of the wound with granulation tissue, good epithelization Some Skin excoriation. Right lower extremity: Palpable femoral pulse, seems to be a bit faint. Nonpalpable pedal pulse. Motor and sensory intact. Capillary refill 4 seconds. Dependent rubor of the foot. Gangrene of the fourth toe and partial gangrene on the medial aspect of the fifth toe - dry now and has not progressed Results Result Diagram: 10/17/16 0450 10/20/16 1205 JOAQUINA MCKEON MD Oct 20, 2016 19:09
[2016-10-20 19:24] VITALS: BP 152/67; RESP 18
[2016-10-20] MEDS: ATORVASTATIN 10 MG TAB PO SCH (21:31)
[2016-10-20] MEDS: OXYCODONE/ACETAMINOPHEN (5/325) TAB PO PRN ×2 (21:31→22:36)
[2016-10-20] MEDS: INSULIN GLARGINE [LANtus] 3 ML PEN SC SCH (21:40)
[2016-10-21] MEDS: DEXTROSE 5%-0.45% NACL 1,000 ML IV SCH ×2 (01:28→12:00)
[2016-10-21] MEDS: morphine 2 MG INJ IV PRN ×2 (01:33→22:37)
[2016-10-21] MEDS: metroNIDAZOLE 500 MG TAB PO SCH ×3 (05:33→23:52)
[2016-10-21] MEDS: PANTOPRAZOLE (EC) 40 MG TAB PO SCH (05:33)
[2016-10-21] MEDS: VANCOMYCIN 1 GM in NS 250 ML IVPB SCH ×2 (05:33→18:38)
[2016-10-21 05:55] LABS: ADD SCAN DIFF NO
[2016-10-21 06:07] LABS: BASOPHILS % 0.4 % (0.0-2.0); EOSINOPHILS # 0.3 10^3/ul (0.0-0.5); EOSINOPHILS % 4.8 % (0.0-7.0); HEMATOCRIT 29.7 % (37.0-47.0); HEMOGLOBIN 9.5 g/dl (12.0-16.0); LYMPHOCYTES # 1.9 10^3/ul (0.8-2.9); LYMPHOCYTES % 33.3 % (15.0-51.0); MEAN CORPUSCULAR HEMOGLOBIN 29.6 pg (29.0-33.0); MEAN CORPUSCULAR VOLUME 92.5 fl (82.0-101.0); MEAN PLATELET VOLUME 10.1 fl (7.4-10.4); MONOCYTE # 0.6 10^3/ul (0.3-0.9); MONOCYTES % 9.8 % (0.0-11.0); NEUTROPHIL # 2.9 10^3/ul (1.6-7.5); PLATELET COUNT 380 10^3/UL (140-415); RED BLOOD COUNT 3.21 10^6/ul (4.20-5.40); RED CELL DISTRIBUTION WIDTH 14.6 % (11.5-14.5); WHITE BLOOD COUNT 5.6 10^3/ul (4.8-10.8)
[2016-10-21 06:21] LABS: INR 1.28; PROTIME 16.1 Sec (12.2-14.2); PT RATIO 1.3
[2016-10-21 06:27] LABS: PARTIAL THROMBOPLASTIN TIME 36.5 Sec (25.0-35.0)
[2016-10-21 06:31] LABS: POTASSIUM 3.8 mmol/L (3.5-5.1)
[2016-10-21 06:33] LABS: CREATININE 0.45 mg/dl (0.44-1.00)
[2016-10-21 06:34] LABS: CALCIUM 8.8 mg/dl (8.4-10.2)
[2016-10-21 08:13] VITALS: BP 140/67; RESP 14
[2016-10-21] MEDS: INSULIN ASPART [NOVOLOG] 3 ML PEN SC SCH ×4 (08:15→20:59)
[2016-10-21] MEDS: ASPIRIN 81 MG TAB PO SCH (09:18)
[2016-10-21] MEDS: LISINOPRIL 5 MG TAB PO SCH (09:18)
[2016-10-21] MEDS: GABAPENTIN 300 MG CAP PO SCH ×3 (09:18→20:43)
[2016-10-21] MEDS: HEPARIN 5,000 UNIT/0.5 ML SYG SC SCH ×2 (09:51→21:00)
--- NOTE | 2016-10-21 09:56 | CONS ---
Date/Time of Note Date/Time of Note DATE: 10/21/16 TIME: 09:51 Assessment/Plan Assessment/Plan Chief Complaint/Hosp Course IMPRESSION: 1. Preoperative evaluation prior to possible lower extremity revascularization. - No ischemia by lexiscan and NL EF by echo with no sig valve abnl. Thus ok to proceed with surgery at relatively low to moderate risk on current medications without further noninvasive evaluation. Now post-op s/p LE angio 2. Abnormal electrocardiogram with T-wave flattening isolated to the aVL.- negative troponin x 3 3. Hypertension with currently borderline hypotension today. 4. History of dyslipidemia. 5. Diabetes mellitus. 6. Peripheral arterial disease with right lower extremity gangrenous changes. 7. Status post left [id number] amputation. 8. Anemia. Recc: -Tele -Continue asa -Continue statin -Continue ACEI and follow BP closely -local wound care Problems: Consultation Date/Type/Reason Admit Date/Time Oct 14, 2016 at 16:41 Initial Consult Date 10/14/2016 Type of Consultation: cardiology Reason for Consultation abnl ecg Referring Provider: JOAQUINA MCKEON MD Exam/Review of Systems Vital Signs Vitals Vital Signs Date Time Temp Pulse Resp B/P Pulse Ox O2 Delivery O2 Flow Rate FiO2 10/21/16 08:13 98.0 67 14 140/67 96 10/20/16 00:06 Room Air Intake and Output 10/20/16 10/20/16 10/21/16 15:00 23:00 07:00 Intake Total 2520 ml 1250 ml Output Total 1300 ml 2600 ml Balance 1220 ml -1350 ml Exam Review of Systems: CONSTITUTIONAL: No fevers, chills. PULMONARY: No sob CARDIOVASCULAR: No chest pain/palpitations GASTROINTESTINAL: No nausea/vomiting. GENITOURINARY: No hematuria/dysuria. MUSCULOSKELETAL: Pain in leg PSYCHIATRIC: The patient denies depression. NEUROLOGIC: No weakness Constitutional: alert Psych: no complaints Head: normocephalic ENMT: mucosa pink and moist Neck: jvd (9 cm water), supple Respiratory: diminished breath sounds (at bases/B) Cardiovascular: regular rate and rhythm Gastrointestinal: non-tender, soft Musculoskeletal: muscle tone (normal) Extremities: other (Gangrene) Results Result Diagram: 10/21/16 0524 10/21/16 0534 Results 24 hrs Laboratory Tests Test 10/20/16 12:05 10/20/16 12:11 10/20/16 17:15 10/20/16 17:27 Potassium Level 4.3 Bedside Glucose 223 H 113 Vancomycin Level Trough 14.9 Test 10/20/16 21:34 10/21/16 05:24 10/21/16 05:34 10/21/16 08:13 Bedside Glucose 134 124 Activated Partial Thromboplast Time 36.5 H Basophils # 0.0 Basophils % 0.4 Eosinophils # 0.3 Eosinophils % 4.8 Hematocrit 29.7 L Hemoglobin 9.5 L INR International Normalized Ratio 1.28 Lymphocytes # 1.9 Lymphocytes % 33.3 Mean Corpuscular Hemoglobin 29.6 Mean Corpuscular Hemoglobin Concent 32.0 Mean Corpuscular Volume 92.5 Mean Platelet Volume 10.1 Monocytes # 0.6 Monocytes % 9.8 Neutrophils # 2.9 Neutrophils % 51.0 Nucleated Red Blood Cells # 0.0 Nucleated Red Blood Cells % 0.0 Platelet Count 380 Prothrombin Time 16.1 H Prothrombin Time Ratio 1.3 Red Blood Count 3.21 L Red Cell Distribution Width 14.6 H White Blood Count 5.6 # Anion Gap 13 Blood Urea Nitrogen 8 Calcium Level 8.8 Carbon Dioxide Level 29 Chloride Level 106 Creatinine 0.45 Glucose Level 106 Potassium Level 3.8 Sodium Level 144 Medications Medications Current Medications Aspirin (Aspirin) 81 mg DAILY PO Last administered on 10/21/16 09:18; Admin Dose 81 MG; Start 10/14/16 at 09:00 Gabapentin (Neurontin) 300 mg TID PO Last administered on 10/21/16 09:18; Admin Dose 300 MG; Start 10/13/16 at 21:00 Insulin Glargine (Lantus) 5 unit HS SC Last administered on 10/20/16 21:40; Admin Dose 5 UNIT; Start 10/13/16 at 21:00 Atorvastatin Calcium (Lipitor) 10 mg HS PO Last administered on 10/20/16 21:31 ; Admin Dose 10 MG; Start 10/13/16 at 21:00 Ondansetron HCl (Zofran Inj) 4 mg Q6H PRN IV NAUSEA AND/OR VOMITING Last administered on 10/20/16 07:47; Admin Dose 4 MG; Start 10/13/16 at 15:30 Acetaminophen (Tylenol Tab) 650 mg Q6H PRN PO PAIN LEVEL 1-3 OR FEVER Last administered on 10/20/16 00:01; Admin Dose 650 MG; Start 10/13/16 at 15:30 Acetaminophen (Tylenol Supp) 650 mg Q6H PRN [place] PAIN LEVEL 1-3 OR FEVER; Start 10/13/16 at 15:30 Oxycodone/ Acetaminophen (Percocet (5/ 325)) 1 tab Q6H PRN PO MODERATE PAIN LEVEL 4-6 Last administered on 10/20/16 21:31; Admin Dose 1 TAB; Start at 15:30 Morphine Sulfate (morphine) 1 mg Q4H PRN IV SEVERE PAIN LEVEL 7-10 Last administered on 10/21/16 01:33; Admin Dose 1 MG; Start 10/13/16 at 15:30 Docusate Sodium (Colace) 100 mg Q12H PRN PO CONSTIPATION; Start 10/13/16 at 15: 30 Bisacodyl (Dulcolax) 5 mg DAILY PRN PO CONSTIPATION; Start 10/13/16 at 15:30 Pantoprazole 40 mg 40 mg DAILY@06 PO Last administered on 10/21/16 05:33; Admin Dose 40 MG; Start 10/14/16 at 06:00 Ceftriaxone Sodium (Rocephin) 50 ml @ 100 mls/hr Q24H IVPB Last administered on 10/20/16 15:11; Admin Dose 100 MLS/HR; Start 10/13/16 at 15:30 Diphenhydramine HCl (Benadryl) 25 mg Q6H PRN PO ITCHING; Start 10/13/16 at 15: 30 Miscellaneous Information 1 ea NOTE XX ; Start 10/13/16 at 16:00 Glucose (Glutose) 15 gm Q15M PRN PO DECREASED GLUCOSE; Start 10/13/16 at 16:00 Glucose (Glutose) 22.5 gm Q15M PRN PO DECREASED GLUCOSE; Start 10/13/16 at 16: 00 Dextrose (D50w Syringe) 25 ml Q15M PRN IV DECREASED GLUCOSE; Start 10/13/16 at 16:00 Dextrose (D50w Syringe) 50 ml Q15M PRN IV DECREASED GLUCOSE; Start 10/13/16 at 16:00 Glucagon (Glucagen) 1 mg Q15M PRN IM DECREASED GLUCOSE; Start 10/13/16 at 16:00 Glucose 15 gm 15 gm Q15M PRN BUCCAL DECREASED GLUCOSE; Start 10/13/16 at 16:00 Dextrose/Sodium Chloride (D5-1/2ns) 1,000 ml @ 50 mls/hr Q20H IV Last administered on 10/21/16 01:28; Admin Dose 50 MLS/HR; Start 10/14/16 at 00:00 Heparin Sodium (Porcine) (Heparin (5000 Units/0.5 ml)) 5,000 unit BID SC Last administered on 10/21/16 09:51; Admin Dose 5,000 UNIT; Start 10/13/16 at 21:00 Hydralazine HCl (Apresoline) 10 mg Q6H PRN IV SBP >160 Last administered on 19:56; Admin Dose 10 MG; Start 10/13/16 at 20:00 Lisinopril 5 mg 5 mg DAILY PO Last administered on 10/21/16 09:18; Admin Dose 5 MG; Start 10/17/16 at 09:00 Vancomycin HCl (Vancocin) 250 ml @ 125 mls/hr Q12H IVPB Last administered on 05:33; Admin Dose 125 MLS/HR; Start 10/18/16 at 06:00 Metronidazole (Flagyl) 500 mg Q8 PO Last administered on 10/21/16 05:33; Admin Dose 500 MG; Start 10/18/16 at 09:30 KAYLEIGH NORIEGA 22, 2017 09:56
--- NOTE | 2016-10-21 11:35 | PN ---
Date/Time of Note Date/Time of Note DATE: 10/21/16 TIME: 11:33 Assessment/Plan VTE Prophylaxis VTE Prophylaxis Intervention: heparin Lines/Catheters IV Catheter Type (from Nrsg): PICC Line Central line still needed: Yes (IV abx ) Assessment/Plan Assessment/Plan 1. Right foot cellulitis with gangrene.s/p LE angiogram showed moderate obstructive PAD - 2. Peripheral vascular disease. 3. Hypertension. 4. 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 5. Diabetic neuropathy 6. anemia of chronic Disease Plan: Continue current care Bp stable S/P RLE angiogram that demonstrated infrainguinal disease.- as per vascular surgery and podiatry plan IV abx, ID following heparin for DVT prophylaxis Subjective 24 Hr Interval Summary Free Text/Dictation s/p vascular surgery discussion with Familiy, possible plan for revascularisation Exam/Review of Systems Vital Signs Vitals Vital Signs Date Time Temp Pulse Resp B/P Pulse Ox O2 Delivery O2 Flow Rate FiO2 10/21/16 08:13 98.0 67 14 140/67 96 10/20/16 00:06 Room Air Intake and Output 10/20/16 10/20/16 10/21/16 14:59 22:59 06:59 Intake Total 2520 ml 1250 ml Output Total 1300 ml 2600 ml Balance 1220 ml -1350 ml Exam HEENT: Pupils are equal and reactive to light. Anicteric sclerae. NECK: Supple, no JVD noted, no cervical adenopathy, no carotid bruits heard. LUNGS: Fair breath sounds bilaterally. CARDIOVASCULAR: S1, S2 normal. ABDOMEN: Soft, nontender. No organomegaly or masses noted. EXTREMITIES: Right foot fourth and fifth toe gangrenous changes status post left lower extremity AKA. No edema or cyanosis noted. NEUROLOGICAL: Awake. Results Result Diagram: 10/21/16 0524 10/21/16 0534 Results 24 hrs Laboratory Tests Test 10/20/16 12:05 10/20/16 12:11 10/20/16 17:15 10/20/16 17:27 Potassium Level 4.3 Bedside Glucose 223 H 113 Vancomycin Level Trough 14.9 Test 10/20/16 21:34 10/21/16 05:24 10/21/16 05:34 10/21/16 08:13 Bedside Glucose 134 124 White Blood Count 5.6 # Red Blood Count 3.21 L Hemoglobin 9.5 L Hematocrit 29.7 L Mean Corpuscular Volume 92.5 Mean Corpuscular Hemoglobin 29.6 Mean Corpuscular Hemoglobin Concent 32.0 Red Cell Distribution Width 14.6 H Platelet Count 380 Mean Platelet Volume 10.1 Neutrophils % 51.0 Lymphocytes % 33.3 Monocytes % 9.8 Eosinophils % 4.8 Basophils % 0.4 Nucleated Red Blood Cells % 0.0 Neutrophils # 2.9 Lymphocytes # 1.9 Monocytes # 0.6 Eosinophils # 0.3 Basophils # 0.0 Nucleated Red Blood Cells # 0.0 Prothrombin Time 16.1 H Prothrombin Time Ratio 1.3 INR International Normalized Ratio 1.28 Activated Partial Thromboplast Time 36.5 H Sodium Level 144 Potassium Level 3.8 Chloride Level 106 Carbon Dioxide Level 29 Anion Gap 13 Blood Urea Nitrogen 8 Creatinine 0.45 Glucose Level 106 Calcium Level 8.8 Medications Medications Current Medications Aspirin (Aspirin) 81 mg DAILY PO Last administered on 10/21/16 09:18; Admin Dose 81 MG; Start 10/14/16 at 09:00 Gabapentin (Neurontin) 300 mg TID PO Last administered on 10/21/16 09:18; Admin Dose 300 MG; Start 10/13/16 at 21:00 Insulin Glargine (Lantus) 5 unit HS SC Last administered on 10/20/16 21:40; Admin Dose 5 UNIT; Start 10/13/16 at 21:00 Atorvastatin Calcium (Lipitor) 10 mg HS PO Last administered on 10/20/16 21:31 ; Admin Dose 10 MG; Start 10/13/16 at 21:00 Ondansetron HCl (Zofran Inj) 4 mg Q6H PRN IV NAUSEA AND/OR VOMITING Last administered on 10/20/16 07:47; Admin Dose 4 MG; Start 10/13/16 at 15:30 Acetaminophen (Tylenol Tab) 650 mg Q6H PRN PO PAIN LEVEL 1-3 OR FEVER Last administered on 10/20/16 00:01; Admin Dose 650 MG; Start 10/13/16 at 15:30 Acetaminophen (Tylenol Supp) 650 mg Q6H PRN [place] PAIN LEVEL 1-3 OR FEVER; Start 10/13/16 at 15:30 Oxycodone/ Acetaminophen (Percocet (5/ 325)) 1 tab Q6H PRN PO MODERATE PAIN LEVEL 4-6 Last administered on 10/20/16 21:31; Admin Dose 1 TAB; Start at 15:30 Morphine Sulfate (morphine) 1 mg Q4H PRN IV SEVERE PAIN LEVEL 7-10 Last administered on 10/21/16 01:33; Admin Dose 1 MG; Start 10/13/16 at 15:30 Docusate Sodium (Colace) 100 mg Q12H PRN PO CONSTIPATION; Start 10/13/16 at 15: 30 Bisacodyl (Dulcolax) 5 mg DAILY PRN PO CONSTIPATION; Start 10/13/16 at 15:30 Pantoprazole 40 mg 40 mg DAILY@06 PO Last administered on 10/21/16 05:33; Admin Dose 40 MG; Start 10/14/16 at 06:00 Ceftriaxone Sodium (Rocephin) 50 ml @ 100 mls/hr Q24H IVPB Last administered on 10/20/16 15:11; Admin Dose 100 MLS/HR; Start 10/13/16 at 15:30 Diphenhydramine HCl (Benadryl) 25 mg Q6H PRN PO ITCHING; Start 10/13/16 at 15: 30 Miscellaneous Information 1 ea NOTE XX ; Start 10/13/16 at 16:00 Glucose (Glutose) 15 gm Q15M PRN PO DECREASED GLUCOSE; Start 10/13/16 at 16:00 Glucose (Glutose) 22.5 gm Q15M PRN PO DECREASED GLUCOSE; Start 10/13/16 at 16: 00 Dextrose (D50w Syringe) 25 ml Q15M PRN IV DECREASED GLUCOSE; Start 10/13/16 at 16:00 Dextrose (D50w Syringe) 50 ml Q15M PRN IV DECREASED GLUCOSE; Start 10/13/16 at 16:00 Glucagon (Glucagen) 1 mg Q15M PRN IM DECREASED GLUCOSE; Start 10/13/16 at 16:00 Glucose 15 gm 15 gm Q15M PRN BUCCAL DECREASED GLUCOSE; Start 10/13/16 at 16:00 Dextrose/Sodium Chloride (D5-1/2ns) 1,000 ml @ 50 mls/hr Q20H IV Last administered on 10/21/16 01:28; Admin Dose 50 MLS/HR; Start 10/14/16 at 00:00 Heparin Sodium (Porcine) (Heparin (5000 Units/0.5 ml)) 5,000 unit BID SC Last administered on 10/21/16 09:51; Admin Dose 5,000 UNIT; Start 10/13/16 at 21:00 Hydralazine HCl (Apresoline) 10 mg Q6H PRN IV SBP >160 Last administered on 19:56; Admin Dose 10 MG; Start 10/13/16 at 20:00 Lisinopril 5 mg 5 mg DAILY PO Last administered on 10/21/16 09:18; Admin Dose 5 MG; Start 10/17/16 at 09:00 Vancomycin HCl (Vancocin) 250 ml @ 125 mls/hr Q12H IVPB Last administered on 05:33; Admin Dose 125 MLS/HR; Start 10/18/16 at 06:00 Metronidazole (Flagyl) 500 mg Q8 PO Last administered on 10/21/16 05:33; Admin Dose 500 MG; Start 10/18/16 at 09:30 ALYSSA VENCES MD Oct 21, 2016 11:35
--- NOTE | 2016-10-21 12:02 | PN ---
Date/Time of Note Date/Time of Note DATE: 10/21/16 TIME: 11:59 Assessment/Plan Lines/Catheters IV [facility] Type ([facility] P[facility] Line Assessment/Plan Chief Complaint/Hosp Course -Bilateral lower extremity atherosclerosis with gangrene: S/P RLE angiogram that demonstrated infrainguinal disease. The patient does have in line flow to the foot and her gangrene has become dry and not progressed. in light of her CDiff active infection will await for that to resolve and recommend debridement per podiatry recommendations. Will follow wound very closely and evaluate her perfusion intraop if needed. If concern for wound healing is present then would recommend Endovascular intervention in an Antegrade fashion. -The patient has developed a right lower extremity gangrene in which it is a very complicated situation as the patient has had a left hip disarticulation and providing her with vascular interventions is limited. Upon our extensive discussion with the patient she has been very emotional and has asked for everything that can be done to preserve her right lower extremity. Patient is quite dependent per her family and herself to about 80% with her right lower extremity in terms of being able to transfer and her mobility at home. We have provided her offer of conservative therapy for the wound care and eventual amputation if she has an infection that is threatening her life. We have mentioned that if she develops rest pain that it is intolerable and then an amputation at that point. We have also offered her possible right lower extremity angiogram to further delineate her tibioperoneal disease and evaluate the areas that have been found to be monophasic with ultrasound. I have spoken with the family that she may require a revascularization and they have agreed to have everything done, no matter the risks entailed. -Optimize vascular status (BP meds, diet, nutrition, exercise, sugar control, antiplatelets). -Continue antibiotics per ID -Appreciate cardiology feedback -Discussed findings, plan and management with the patient and she understands with a certified branch manager. -Thank you for allowing us to partake in the care of your patient. Please call with any questions. Problems: Subjective 24 Hr Interval Summary No new vascular events overnight Exam/Review of Systems Vital Signs Vitals Vital Signs Date Time Temp Pulse Resp B/P Pulse Ox O2 Delivery O2 Flow Rate FiO2 10/21/16 08:13 98.0 67 14 140/67 96 10/20/16 00:06 Room Air Intake and Output 10/20/16 10/20/16 10/21/16 15:00 23:00 07:00 Intake Total 2520 ml 1250 ml Output Total 1300 ml 2600 ml Balance 1220 ml -1350 ml Exam Free Text/Dictation GENERAL: Alert and oriented x3, PULMONARY: Clear to auscultation bilaterally. CARDIOVASCULAR: S1, S2 present. ABDOMEN: Soft, nontender, nondistended. Bowel sounds positive. Midline incision with surgical scar that is well healed. Bowel sounds positive. EXTREMITIES: Left lower extremity: left hip disarticulation surgical scar, mid aspect of the wound with granulation tissue, good epithelization Some Skin excoriation. Right lower extremity: Palpable femoral pulse, seems to be a bit faint. Nonpalpable pedal pulse. Motor and sensory intact. Capillary refill 4 seconds. Dependent rubor of the foot. Gangrene of the fourth toe and gangrene of the fifth toe - dry now with some demarcation Results Result Diagram: 10/21/16 0524 10/21/16 0534 JOAQUINA MCKEON MD Oct 21, 2016 12:02
--- NOTE | 2016-10-21 12:44 | CONS ---
Date/Time of Note Date/Time of Note DATE: 10/21/16 TIME: 12:43 Assessment/Plan Assessment/Plan Chief Complaint/Hosp Course SUBJECTIVE: Alert, looks comfortable, no fevers. ANTIMICROBIALS: 1. Vancomycin. 2. Rocephin. 3. Flagyl PHYSICAL EXAMINATION: GENERAL: This is a well-nourished, well-developed, middle-aged woman who is alert, in no distress. HEENT: Head atraumatic, normocephalic. Sclerae anicteric. Buccal mucosa dry. NECK: Supple. CHEST: Rise symmetrical. Breath sounds diminished to bases. HEART: S1, S2. ABDOMEN: Soft. Bowel tones present. EXTREMITIES: With right foot gangrenous changes. ASSESSMENT: 1. Right foot cellulitis with gangrene. 2. Peripheral vascular disease. 3. Hypertension. 4. 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 Continue present care, antibiotics, card/vascular rec-s==> pending debridement [facility] staff Problems: Consultation Date/Type/Reason Admit Date/Time Oct 14, 2016 at 16:41 Type of Consultation: id Referring Provider: JOAQUINA MCKEON MD Exam/Review of Systems Vital Signs Vitals Vital Signs Date Time Temp Pulse Resp B/P Pulse Ox O2 Delivery O2 Flow Rate FiO2 10/21/16 08:13 98.0 67 14 140/67 96 10/20/16 00:06 Room Air Intake and Output 10/20/16 10/20/16 10/21/16 15:00 23:00 07:00 Intake Total 2520 ml 1250 ml Output Total 1300 ml 2600 ml Balance 1220 ml -1350 ml Results Result Diagram: 10/21/16 0524 10/21/16 0534 Results 24 hrs Laboratory Tests Test 10/20/16 17:15 10/20/16 17:27 10/20/16 21:34 10/21/16 05:24 Vancomycin Level Trough 14.9 Bedside Glucose 113 134 White Blood Count 5.6 # Red Blood Count 3.21 L Hemoglobin 9.5 L Hematocrit 29.7 L Mean Corpuscular Volume 92.5 Mean Corpuscular Hemoglobin 29.6 Mean Corpuscular Hemoglobin Concent 32.0 Red Cell Distribution Width 14.6 H Platelet Count 380 Mean Platelet Volume 10.1 Neutrophils % 51.0 Lymphocytes % 33.3 Monocytes % 9.8 Eosinophils % 4.8 Basophils % 0.4 Nucleated Red Blood Cells % 0.0 Neutrophils # 2.9 Lymphocytes # 1.9 Monocytes # 0.6 Eosinophils # 0.3 Basophils # 0.0 Nucleated Red Blood Cells # 0.0 Prothrombin Time 16.1 H Prothrombin Time Ratio 1.3 INR International Normalized Ratio 1.28 Activated Partial Thromboplast Time 36.5 H Test 10/21/16 05:34 10/21/16 08:13 10/21/16 11:59 Sodium Level 144 Potassium Level 3.8 Chloride Level 106 Carbon Dioxide Level 29 Anion Gap 13 Blood Urea Nitrogen 8 Creatinine 0.45 Glucose Level 106 Calcium Level 8.8 Bedside Glucose 124 261 H Medications Medications Current Medications Aspirin (Aspirin) 81 mg DAILY PO Last administered on 10/21/16 09:18; Admin Dose 81 MG; Start 10/14/16 at 09:00 Gabapentin (Neurontin) 300 mg TID PO Last administered on 10/21/16 12:32; Admin Dose 300 MG; Start 10/13/16 at 21:00 Insulin Glargine (Lantus) 5 unit HS SC Last administered on 10/20/16 21:40; Admin Dose 5 UNIT; Start 10/13/16 at 21:00 Atorvastatin Calcium (Lipitor) 10 mg HS PO Last administered on 10/20/16 21:31 ; Admin Dose 10 MG; Start 10/13/16 at 21:00 Ondansetron HCl (Zofran Inj) 4 mg Q6H PRN IV NAUSEA AND/OR VOMITING Last administered on 10/20/16 07:47; Admin Dose 4 MG; Start 10/13/16 at 15:30 Acetaminophen (Tylenol Tab) 650 mg Q6H PRN PO PAIN LEVEL 1-3 OR FEVER Last administered on 10/20/16 00:01; Admin Dose 650 MG; Start 10/13/16 at 15:30 Acetaminophen (Tylenol Supp) 650 mg Q6H PRN [place] PAIN LEVEL 1-3 OR FEVER; Start 10/13/16 at 15:30 Oxycodone/ Acetaminophen (Percocet (5/ 325)) 1 tab Q6H PRN PO MODERATE PAIN LEVEL 4-6 Last administered on 10/20/16 21:31; Admin Dose 1 TAB; Start at 15:30 Morphine Sulfate (morphine) 1 mg Q4H PRN IV SEVERE PAIN LEVEL 7-10 Last administered on 10/21/16 01:33; Admin Dose 1 MG; Start 10/13/16 at 15:30 Docusate Sodium (Colace) 100 mg Q12H PRN PO CONSTIPATION; Start 10/13/16 at 15: 30 Bisacodyl (Dulcolax) 5 mg DAILY PRN PO CONSTIPATION; Start 10/13/16 at 15:30 Pantoprazole 40 mg 40 mg DAILY@06 PO Last administered on 10/21/16 05:33; Admin Dose 40 MG; Start 10/14/16 at 06:00 Ceftriaxone Sodium (Rocephin) 50 ml @ 100 mls/hr Q24H IVPB Last administered on 10/20/16 15:11; Admin Dose 100 MLS/HR; Start 10/13/16 at 15:30 Diphenhydramine HCl (Benadryl) 25 mg Q6H PRN PO ITCHING; Start 10/13/16 at 15: 30 Miscellaneous Information 1 ea NOTE XX ; Start 10/13/16 at 16:00 Glucose (Glutose) 15 gm Q15M PRN PO DECREASED GLUCOSE; Start 10/13/16 at 16:00 Glucose (Glutose) 22.5 gm Q15M PRN PO DECREASED GLUCOSE; Start 10/13/16 at 16: 00 Dextrose (D50w Syringe) 25 ml Q15M PRN IV DECREASED GLUCOSE; Start 10/13/16 at 16:00 Dextrose (D50w Syringe) 50 ml Q15M PRN IV DECREASED GLUCOSE; Start 10/13/16 at 16:00 Glucagon (Glucagen) 1 mg Q15M PRN IM DECREASED GLUCOSE; Start 10/13/16 at 16:00 Glucose 15 gm 15 gm Q15M PRN BUCCAL DECREASED GLUCOSE; Start 10/13/16 at 16:00 Dextrose/Sodium Chloride (D5-1/2ns) 1,000 ml @ 50 mls/hr Q20H IV Last administered on 10/21/16 01:28; Admin Dose 50 MLS/HR; Start 10/14/16 at 00:00 Heparin Sodium (Porcine) (Heparin (5000 Units/0.5 ml)) 5,000 unit BID SC Last administered on 10/21/16 09:51; Admin Dose 5,000 UNIT; Start 10/13/16 at 21:00 Hydralazine HCl (Apresoline) 10 mg Q6H PRN IV SBP >160 Last administered on 19:56; Admin Dose 10 MG; Start 10/13/16 at 20:00 Lisinopril 5 mg 5 mg DAILY PO Last administered on 10/21/16 09:18; Admin Dose 5 MG; Start 10/17/16 at 09:00 Vancomycin HCl (Vancocin) 250 ml @ 125 mls/hr Q12H IVPB Last administered on 05:33; Admin Dose 125 MLS/HR; Start 10/18/16 at 06:00 Metronidazole (Flagyl) 500 mg Q8 PO Last administered on 10/21/16 05:33; Admin Dose 500 MG; Start 10/18/16 at 09:30 KATHERYN RINALDI NP Oct 21, 2016 12:44
[2016-10-21] MEDS: CEFTRIAXONE 1 GM/50 ML (PMX) 50 ML IVPB SCH (16:31)
[2016-10-21 19:26] VITALS: BP 185/80; RESP 20
[2016-10-21] MEDS: hydrALAzine 20 MG INJ IV PRN (19:57)
[2016-10-21 20:20] VITALS: BP 152/74; PULSE 94
[2016-10-21] MEDS: ATORVASTATIN 10 MG TAB PO SCH (20:43)
[2016-10-21] MEDS: OXYCODONE/ACETAMINOPHEN (5/325) TAB PO PRN (20:44)
[2016-10-21] MEDS: INSULIN GLARGINE [LANtus] 3 ML PEN SC SCH (20:58)
[2016-10-21 21:00] VITALS: BP 120/57; PULSE 86
[2016-10-22] MEDS: OXYCODONE/ACETAMINOPHEN (5/325) TAB PO PRN ×2 (01:43→21:49)
[2016-10-22] MEDS: DEXTROSE 5%-0.45% NACL 1,000 ML IV SCH ×2 (01:44→08:00)
[2016-10-22] MEDS: metroNIDAZOLE 500 MG TAB PO SCH ×3 (05:40→21:50)
[2016-10-22] MEDS: VANCOMYCIN 1 GM in NS 250 ML IVPB SCH ×2 (05:41→18:09)
[2016-10-22] MEDS: PANTOPRAZOLE (EC) 40 MG TAB PO SCH (05:41)
[2016-10-22] MEDS ORDERED: ALTEPLASE (CATHFLO) 2 MG INJ CATHETER ONE (06:30)
[2016-10-22] MEDS: INSULIN ASPART [NOVOLOG] 3 ML PEN SC SCH ×4 (07:58→21:54)
[2016-10-22 08:08] VITALS: BP 132/60; RESP 16
[2016-10-22] MEDS: ONDANSETRON 4 MG INJ IV PRN (08:24)
[2016-10-22] MEDS: ASPIRIN 81 MG TAB PO SCH (08:25)
[2016-10-22] MEDS: GABAPENTIN 300 MG CAP PO SCH ×3 (08:25→21:49)
[2016-10-22] MEDS: LISINOPRIL 5 MG TAB PO SCH (08:26)
[2016-10-22] MEDS: HEPARIN 5,000 UNIT/0.5 ML SYG SC SCH ×2 (08:35→21:42)
[2016-10-22] MEDS: ACETAMINOPHEN 325 MG TAB PO PRN (09:48)
--- NOTE | 2016-10-22 11:58 | CONS ---
Date/Time of Note Date/Time of Note DATE: 10/22/16 TIME: 11:54 Assessment/Plan Assessment/Plan Chief Complaint/Hosp Course IMPRESSION: 1. Preoperative evaluation prior to possible lower extremity revascularization. - No ischemia by lexiscan and NL EF by echo with no sig valve abnl. Thus ok to proceed with surgery at relatively low to moderate risk on current medications without further noninvasive evaluation. Now post-op s/p LE angio 2. Abnormal electrocardiogram with T-wave flattening isolated to the aVL.- negative troponin x 3 3. Hypertension with currently borderline hypotension today. 4. History of dyslipidemia. 5. Diabetes mellitus. 6. Peripheral arterial disease with right lower extremity gangrenous changes. 7. Status post left [id number] amputation. 8. Anemia. Recc: -Tele -Continue asa -Continue statin -Continue ACEI and follow BP closely -local wound care Problems: Consultation Date/Type/Reason Admit Date/Time Oct 14, 2016 at 16:41 Initial Consult Date 10/14/2016 Type of Consultation: Cardiology Reason for Consultation Chest pain Referring Provider: JOAQUINA MCKEON MD Exam/Review of Systems Vital Signs Vitals Vital Signs Date Time Temp Pulse Resp B/P Pulse Ox O2 Delivery O2 Flow Rate FiO2 10/22/16 08:08 97.7 74 16 132/60 97 10/20/16 00:06 Room Air Intake and Output 10/21/16 10/21/16 10/22/16 15:00 23:00 07:00 Intake Total 250 ml 1540 ml 1215 ml Output Total 2000 ml 600 ml Balance 250 ml -460 ml 615 ml Exam Review of Systems: CONSTITUTIONAL: No fevers, chills. PULMONARY: No sob CARDIOVASCULAR: No chest pain/palpitations GASTROINTESTINAL: No nausea/vomiting. GENITOURINARY: No hematuria/dysuria. MUSCULOSKELETAL: Pain in foot PSYCHIATRIC: The patient denies depression. NEUROLOGIC: No weakness Constitutional: alert, oriented Psych: no complaints Head: normocephalic ENMT: mucosa pink and moist Neck: jvd (9 cm water), supple Respiratory: diminished breath sounds (at bases/B) Cardiovascular: regular rate and rhythm Gastrointestinal: non-tender, soft Musculoskeletal: muscle tone (normal) Extremities: edema Neurological: other (No focal deficits) Results Result Diagram: 10/21/16 0524 10/21/16 0534 Results 24 hrs Laboratory Tests Test 10/21/16 11:59 10/21/16 17:55 10/21/16 20:45 10/22/16 01:46 Bedside Glucose 261 H 133 186 162 Test 10/22/16 07:53 Bedside Glucose 121 Medications Medications Current Medications Aspirin (Aspirin) 81 mg DAILY PO Last administered on 10/22/16 08:25; Admin Dose 81 MG; Start 10/14/16 at 09:00 Gabapentin (Neurontin) 300 mg TID PO Last administered on 10/22/16 08:25; Admin Dose 300 MG; Start 10/13/16 at 21:00 Insulin Glargine (Lantus) 5 unit HS SC Last administered on 10/21/16 20:58; Admin Dose 5 UNIT; Start 10/13/16 at 21:00 Atorvastatin Calcium (Lipitor) 10 mg HS PO Last administered on 10/21/16 20:43 ; Admin Dose 10 MG; Start 10/13/16 at 21:00 Ondansetron HCl (Zofran Inj) 4 mg Q6H PRN IV NAUSEA AND/OR VOMITING Last administered on 10/22/16 08:24; Admin Dose 4 MG; Start 10/13/16 at 15:30 Acetaminophen (Tylenol Tab) 650 mg Q6H PRN PO PAIN LEVEL 1-3 OR FEVER Last administered on 10/22/16 09:48; Admin Dose 650 MG; Start 10/13/16 at 15:30 Acetaminophen (Tylenol Supp) 650 mg Q6H PRN [place] PAIN LEVEL 1-3 OR FEVER; Start 10/13/16 at 15:30 Docusate Sodium (Colace) 100 mg Q12H PRN PO CONSTIPATION; Start 10/13/16 at 15: 30 Bisacodyl (Dulcolax) 5 mg DAILY PRN PO CONSTIPATION; Start 10/13/16 at 15:30 Pantoprazole 40 mg 40 mg DAILY@06 PO Last administered on 10/22/16 05:41; Admin Dose 40 MG; Start 10/14/16 at 06:00 Ceftriaxone Sodium (Rocephin) 50 ml @ 100 mls/hr Q24H IVPB Last administered on 10/21/16 16:31; Admin Dose 100 MLS/HR; Start 10/13/16 at 15:30 Diphenhydramine HCl (Benadryl) 25 mg Q6H PRN PO ITCHING; Start 10/13/16 at 15: 30 Miscellaneous Information 1 ea NOTE XX ; Start 10/13/16 at 16:00 Glucose (Glutose) 15 gm Q15M PRN PO DECREASED GLUCOSE; Start 10/13/16 at 16:00 Glucose (Glutose) 22.5 gm Q15M PRN PO DECREASED GLUCOSE; Start 10/13/16 at 16: 00 Dextrose (D50w Syringe) 25 ml Q15M PRN IV DECREASED GLUCOSE; Start 10/13/16 at 16:00 Dextrose (D50w Syringe) 50 ml Q15M PRN IV DECREASED GLUCOSE; Start 10/13/16 at 16:00 Glucagon (Glucagen) 1 mg Q15M PRN IM DECREASED GLUCOSE; Start 10/13/16 at 16:00 Glucose 15 gm 15 gm Q15M PRN BUCCAL DECREASED GLUCOSE; Start 10/13/16 at 16:00 Dextrose/Sodium Chloride (D5-1/2ns) 1,000 ml @ 50 mls/hr Q20H IV Last administered on 10/22/16 01:44; Admin Dose 50 MLS/HR; Start 10/14/16 at 00:00 Heparin Sodium (Porcine) (Heparin (5000 Units/0.5 ml)) 5,000 unit BID SC Last administered on 10/22/16 08:35; Admin Dose 5,000 UNIT; Start 10/13/16 at 21:00 Hydralazine HCl (Apresoline) 10 mg Q6H PRN IV SBP >160 Last administered on 19:57; Admin Dose 10 MG; Start 10/13/16 at 20:00 Lisinopril 5 mg 5 mg DAILY PO Last administered on 10/22/16 08:26; Admin Dose 5 MG; Start 10/17/16 at 09:00 Vancomycin HCl (Vancocin) 250 ml @ 125 mls/hr Q12H IVPB Last administered on 05:41; Admin Dose 125 MLS/HR; Start 10/18/16 at 06:00 Metronidazole (Flagyl) 500 mg Q8 PO Last administered on 10/22/16 05:40; Admin Dose 500 MG; Start 10/18/16 at 09:30 Oxycodone/ Acetaminophen (Percocet (5/ 325)) 2 tab Q4H PRN PO MODERATE PAIN LEVEL 4-6 Last administered on 10/22/16t 01:43; Admin Dose 2 TAB; Start at 01:00 KAYLEIGH NORIEGA Oct 22, 2016 11:58
--- NOTE | 2016-10-22 13:14 | CONS ---
Date/Time of Note Date/Time of Note DATE: 10/22/16 TIME: 13:12 Assessment/Plan Assessment/Plan Chief Complaint/Hosp Course SUBJECTIVE: Alert, looks comfortable, no fevers. ANTIMICROBIALS: 1. Vancomycin. 2. Rocephin. 3. Flagyl PHYSICAL EXAMINATION: GENERAL: This is a well-nourished, well-developed, middle-aged woman who is alert, in no distress. HEENT: Head atraumatic, normocephalic. Sclerae anicteric. Buccal mucosa dry. NECK: Supple. CHEST: Rise symmetrical. Breath sounds diminished to bases. HEART: S1, S2. ABDOMEN: Soft. Bowel tones present. EXTREMITIES: With right foot gangrenous changes. ASSESSMENT: 1. Right foot cellulitis with gangrene. 2. Peripheral vascular disease. 3. Hypertension. 4. 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 Continue present care, poss debridement==> will dw dr Ana GALE staff Problems: Consultation Date/Type/Reason Admit Date/Time Oct 14, 2016 at 16:41 Type of Consultation: id Referring Provider: JOAQUINA MCKEON MD Exam/Review of Systems Vital Signs Vitals Vital Signs Date Time Temp Pulse Resp B/P Pulse Ox O2 Delivery O2 Flow Rate FiO2 10/22/16 08:08 97.7 74 16 132/60 97 10/20/16 00:06 Room Air Intake and Output 10/21/16 10/21/16 10/22/16 15:00 23:00 07:00 Intake Total 250 ml 1540 ml 1215 ml Output Total 2000 ml 600 ml Balance 250 ml -460 ml 615 ml Results Result Diagram: 10/21/16 0524 10/21/16 0534 Results 24 hrs Laboratory Tests Test 10/21/16 17:55 10/21/16 20:45 10/22/16 01:46 10/22/16 07:53 Bedside Glucose 133 186 162 121 Test 10/22/16 12:07 Bedside Glucose 151 Medications Medications Current Medications Aspirin (Aspirin) 81 mg DAILY PO Last administered on 10/22/16 08:25; Admin Dose 81 MG; Start 10/14/16 at 09:00 Gabapentin (Neurontin) 300 mg TID PO Last administered on 10/22/16 12:36; Admin Dose 300 MG; Start 10/13/16 at 21:00 Insulin Glargine (Lantus) 5 unit HS SC Last administered on 10/21/16 20:58; Admin Dose 5 UNIT; Start 10/13/16 at 21:00 Atorvastatin Calcium (Lipitor) 10 mg HS PO Last administered on 10/21/16 20:43 ; Admin Dose 10 MG; Start 10/13/16 at 21:00 Ondansetron HCl (Zofran Inj) 4 mg Q6H PRN IV NAUSEA AND/OR VOMITING Last administered on 10/22/16 08:24; Admin Dose 4 MG; Start 10/13/16 at 15:30 Acetaminophen (Tylenol Tab) 650 mg Q6H PRN PO PAIN LEVEL 1-3 OR FEVER Last administered on 10/22/16 09:48; Admin Dose 650 MG; Start 10/13/16 at 15:30 Acetaminophen (Tylenol Supp) 650 mg Q6H PRN IN PAIN LEVEL 1-3 OR FEVER; Start 10/13/16 at 15:30 Docusate Sodium (Colace) 100 mg Q12H PRN PO CONSTIPATION; Start 10/13/16 at 15: 30 Bisacodyl (Dulcolax) 5 mg DAILY PRN PO CONSTIPATION; Start 10/13/16 at 15:30 Pantoprazole 40 mg 40 mg DAILY@06 PO Last administered on 10/22/16 05:41; Admin Dose 40 MG; Start 10/14/16 at 06:00 Ceftriaxone Sodium (Rocephin) 50 ml @ 100 mls/hr Q24H IVPB Last administered on 10/21/16 16:31; Admin Dose 100 MLS/HR; Start 10/13/16 at 15:30 Diphenhydramine HCl (Benadryl) 25 mg Q6H PRN PO ITCHING; Start 10/13/16 at 15: 30 Miscellaneous Information 1 ea NOTE XX ; Start 10/13/16 at 16:00 Glucose (Glutose) 15 gm Q15M PRN PO DECREASED GLUCOSE; Start 10/13/16 at 16:00 Glucose (Glutose) 22.5 gm Q15M PRN PO DECREASED GLUCOSE; Start 10/13/16 at 16: 00 Dextrose (D50w Syringe) 25 ml Q15M PRN IV DECREASED GLUCOSE; Start 10/13/16 at 16:00 Dextrose (D50w Syringe) 50 ml Q15M PRN IV DECREASED GLUCOSE; Start 10/13/16 at 16:00 Glucagon (Glucagen) 1 mg Q15M PRN IM DECREASED GLUCOSE; Start 10/13/16 at 16:00 Glucose (Glutose) 15 gm Q15M PRN BUCCAL DECREASED GLUCOSE; Start 10/13/16 at 16 :00 Heparin Sodium (Porcine) (Heparin (5000 Units/0.5 ml)) 5,000 unit BID SC Last administered on 10/22/16 08:35; Admin Dose 5,000 UNIT; Start 10/13/16 at 21:00 Hydralazine HCl (Apresoline) 10 mg Q6H PRN IV SBP >160 Last administered on 19:57; Admin Dose 10 MG; Start 10/13/16 at 20:00 Lisinopril 5 mg 5 mg DAILY PO Last administered on 10/22/16 08:26; Admin Dose 5 MG; Start 10/17/16 at 09:00 Vancomycin HCl (Vancocin) 250 ml @ 125 mls/hr Q12H IVPB Last administered on 05:41; Admin Dose 125 MLS/HR; Start 10/18/16 at 06:00 Metronidazole (Flagyl) 500 mg Q8 PO Last administered on 10/22/16 05:40; Admin Dose 500 MG; Start 10/18/16 at 09:30 Oxycodone/ Acetaminophen (Percocet (5/ 325)) 2 tab Q4H PRN PO MODERATE PAIN LEVEL 4-6 Last administered on 10/22/16 01:43; Admin Dose 2 TAB; Start at 01:00 Miscellaneous Information (*Rx Drug Level Order Reminder*) VANCOMYCIN TROUGH AT 1700 ONCE ONCE XX ; Start 10/22/16 at 17:00; Stop 10/22/16 at 17:01 KATHERYN RINALDI NP Oct 22, 2016 13:14
[2016-10-22] MEDS: CEFTRIAXONE 1 GM/50 ML (PMX) 50 ML IVPB SCH (15:45)
--- NOTE | 2016-10-22 17:50 | PN ---
Date/Time of Note Date/Time of Note DATE: 10/22/16 TIME: 17:42 Assessment/Plan Lines/Catheters IV [facility]ter Type (from [facility]): PICC Line Assessment/Plan Chief Complaint/Hosp Course -Bilateral lower extremity atherosclerosis with gangrene: S/P RLE angiogram that demonstrated infrainguinal disease. The patient does have in line flow to the foot and her gangrene has become dry and not progressed. in light of her CDiff active infection will await for that to resolve and recommend debridement per podiatry recommendations. Otherwise Will follow wound very closely and schedule for Endovascular intervention in an Antegrade fashion when infection seems to have been resolved and cleared by ID -The patient has developed a right lower extremity gangrene in which it is a very complicated situation as the patient has had a left hip disarticulation and providing her with vascular interventions is limited. Upon our extensive discussion with the patient she has been very emotional and has asked for everything that can be done to preserve her right lower extremity. Patient is quite dependent per her family and herself to about 80% with her right lower extremity in terms of being able to transfer and her mobility at home. We have provided her offer of conservative therapy for the wound care and eventual amputation if she has an infection that is threatening her life. We have mentioned that if she develops rest pain that it is intolerable and then an amputation at that point. I have spoken with the family that she may require a revascularization and they have agreed to have everything done, no matter the risks entailed. -Optimize vascular status (BP meds, diet, nutrition, exercise, sugar control, antiplatelets). 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 -Thank you for allowing us to partake in the care of your patient. Please call with any questions. Problems: Subjective 24 Hr Interval Summary no new vascular events overnight Exam/Review of Systems Vital Signs Vitals Vital Signs Date Time Temp Pulse Resp B/P Pulse Ox O2 Delivery O2 Flow Rate FiO2 10/22/16 08:08 97.7 74 16 132/60 97 10/20/16 00:06 Room Air Intake and Output 10/21/16 10/21/16 10/22/16 15:00 23:00 07:00 Intake Total 250 ml 1540 ml 1215 ml Output Total 2000 ml 600 ml Balance 250 ml -460 ml 615 ml Exam Free Text/Dictation GENERAL: Alert and oriented x3, PULMONARY: Clear to auscultation bilaterally. CARDIOVASCULAR: S1, S2 present. ABDOMEN: Soft, nontender, nondistended. Bowel sounds positive. Midline incision with surgical scar that is well healed. Bowel sounds positive. EXTREMITIES: Left lower extremity: left hip disarticulation surgical scar, mid aspect of the wound with granulation tissue, good epithelization Some Skin excoriation. Right lower extremity: Palpable femoral pulse, seems to be a bit faint. Nonpalpable pedal pulse. Motor and sensory intact. Capillary refill 4 seconds. Dependent rubor of the foot. Gangrene of the fourth toe and gangrene of the fifth toe - dry with some demarcation Results Result Diagram: 10/21/16 0524 10/21/16 0534 JOAQUINA MCKEON MD Oct 22, 2016 17:50
--- NOTE | 2016-10-22 18:36 | PN ---
Date/Time of Note Date/Time of Note DATE: 10/22/16 TIME: 18:35 Assessment/Plan VTE Prophylaxis VTE Prophylaxis Intervention: heparin Lines/Catheters IV Catheter Type (from Nrsg): PICC Line Central line still needed: Yes (IV abx ) Assessment/Plan Assessment/Plan 1. Right foot cellulitis with gangrene.s/p LE angiogram showed moderate obstructive PAD - 2. Peripheral vascular disease. 3. Hypertension. 4. 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 5. Diabetic neuropathy 6. anemia of chronic Disease Plan: Continue current care Bp stable S/P RLE angiogram that demonstrated infrainguinal disease.- as per vascular surgery and podiatry plan IV abx, ID following heparin for DVT prophylaxis Subjective 24 Hr Interval Summary Free Text/Dictation c/o pain in foot, BP stable, awaiting podiatry to plan Exam/Review of Systems Vital Signs Vitals Vital Signs Date Time Temp Pulse Resp B/P Pulse Ox O2 Delivery O2 Flow Rate FiO2 10/22/16 08:08 97.7 74 16 132/60 97 10/20/16 00:06 Room Air Intake and Output 10/21/16 10/21/16 10/22/16 15:00 23:00 07:00 Intake Total 250 ml 1540 ml 1215 ml Output Total 2000 ml 600 ml Balance 250 ml -460 ml 615 ml Exam HEENT: Pupils are equal and reactive to light. Anicteric sclerae. NECK: Supple, no JVD noted, no cervical adenopathy, no carotid bruits heard. LUNGS: Fair breath sounds bilaterally. CARDIOVASCULAR: S1, S2 normal. ABDOMEN: Soft, nontender. No organomegaly or masses noted. EXTREMITIES: Right foot fourth and fifth toe gangrenous changes status post left lower extremity AKA. No edema or cyanosis noted. NEUROLOGICAL: Awake. Results Result Diagram: 10/21/16 0524 10/21/16 0534 Results 24 hrs Laboratory Tests Test 10/21/16 20:45 10/22/16 01:46 10/22/16 07:53 10/22/16 12:07 Bedside Glucose 186 162 121 151 Test 10/22/16 16:55 10/22/16 17:02 Vancomycin Level Trough 13.7 Bedside Glucose 156 Medications Medications Current Medications Aspirin (Aspirin) 81 mg DAILY PO Last administered on 10/22/16t 08:25; Admin Dose 81 MG; Start 10/14/16 at 09:00 Gabapentin (Neurontin) 300 mg TID PO Last administered on 10/22/16 12:36; Admin Dose 300 MG; Start 10/13/16 at 21:00 Insulin Glargine (Lantus) 5 unit HS SC Last administered on 10/21/16 20:58; Admin Dose 5 UNIT; Start 10/13/16 at 21:00 Atorvastatin Calcium (Lipitor) 10 mg HS PO Last administered on 10/21/16 20:43 ; Admin Dose 10 MG; Start 10/13/16 at 21:00 Ondansetron HCl (Zofran Inj) 4 mg Q6H PRN IV NAUSEA AND/OR VOMITING Last administered on 10/22/16 08:24; Admin Dose 4 MG; Start 10/13/16 at 15:30 Acetaminophen (Tylenol Tab) 650 mg Q6H PRN PO PAIN LEVEL 1-3 OR FEVER Last administered on 10/22/16 09:48; Admin Dose 650 MG; Start 10/13/16 at 15:30 Acetaminophen (Tylenol Supp) 650 mg Q6H PRN [place] PAIN LEVEL 1-3 OR FEVER; Start 10/13/16 at 15:30 Docusate Sodium (Colace) 100 mg Q12H PRN PO CONSTIPATION; Start 10/13/16 at 15: 30 Bisacodyl (Dulcolax) 5 mg DAILY PRN PO CONSTIPATION; Start 10/13/16 at 15:30 Pantoprazole 40 mg 40 mg DAILY@06 PO Last administered on 10/22/16 05:41; Admin Dose 40 MG; Start 10/14/16 at 06:00 Ceftriaxone Sodium (Rocephin) 50 ml @ 100 mls/hr Q24H IVPB Last administered on 10/22/16 15:45; Admin Dose 100 MLS/HR; Start 10/13/16 at 15:30 Diphenhydramine HCl (Benadryl) 25 mg Q6H PRN PO ITCHING; Start 10/13/16 at 15: 30 Miscellaneous Information 1 ea NOTE XX ; Start 10/13/16 at 16:00 Glucose (Glutose) 15 gm Q15M PRN PO DECREASED GLUCOSE; Start 10/13/16 at 16:00 Glucose (Glutose) 22.5 gm Q15M PRN PO DECREASED GLUCOSE; Start 10/13/16 at 16: 00 Dextrose (D50w Syringe) 25 ml Q15M PRN IV DECREASED GLUCOSE; Start 10/13/16 at 16:00 Dextrose (D50w Syringe) 50 ml Q15M PRN IV DECREASED GLUCOSE; Start 10/13/16 at 16:00 Glucagon (Glucagen) 1 mg Q15M PRN IM DECREASED GLUCOSE; Start 10/13/16 at 16:00 Glucose (Glutose) 15 gm Q15M PRN BUCCAL DECREASED GLUCOSE; Start 10/13/16 at 16 :00 Heparin Sodium (Porcine) (Heparin (5000 Units/0.5 ml)) 5,000 unit BID SC Last administered on 10/22/16 08:35; Admin Dose 5,000 UNIT; Start 10/13/16 at 21:00 Hydralazine HCl (Apresoline) 10 mg Q6H PRN IV SBP >160 Last administered on 19:57; Admin Dose 10 MG; Start 10/13/16 at 20:00 Lisinopril 5 mg 5 mg DAILY PO Last administered on 10/22/16 08:26; Admin Dose 5 MG; Start 10/17/16 at 09:00 Vancomycin HCl (Vancocin) 250 ml @ 125 mls/hr Q12H IVPB Last administered on 18:09; Admin Dose 125 MLS/HR; Start 10/18/16 at 06:00 Metronidazole (Flagyl) 500 mg Q8 PO Last administered on 10/22/16 14:23; Admin Dose 500 MG; Start 10/18/16 at 09:30 Oxycodone/ Acetaminophen (Percocet (5/ 325)) 2 tab Q4H PRN PO MODERATE PAIN LEVEL 4-6 Last administered on 10/22/16 01:43; Admin Dose 2 TAB; Start at 01:00 ALYSSA VENCES MD Oct 22, 2016 18:36
[2016-10-22 19:35] VITALS: BP 137/65; RESP 20
[2016-10-22] MEDS: ATORVASTATIN 10 MG TAB PO SCH (21:49)
[2016-10-22] MEDS: INSULIN GLARGINE [LANtus] 3 ML PEN SC SCH (21:57)
[2016-10-23] MEDS: PANTOPRAZOLE (EC) 40 MG TAB PO SCH (05:14)
[2016-10-23] MEDS: VANCOMYCIN 1 GM in NS 250 ML IVPB SCH ×2 (05:14→18:14)
[2016-10-23] MEDS: metroNIDAZOLE 500 MG TAB PO SCH ×3 (05:14→22:28)
[2016-10-23 05:33] LABS: ADD SCAN DIFF NO
[2016-10-23] MEDS: ONDANSETRON 4 MG INJ IV PRN (05:39)
[2016-10-23 05:53] LABS: BASOPHILS % 0.2 % (0.0-2.0); EOSINOPHILS # 0.3 10^3/ul (0.0-0.5); EOSINOPHILS % 5.2 % (0.0-7.0); HEMATOCRIT 29.8 % (37.0-47.0); HEMOGLOBIN 9.4 g/dl (12.0-16.0); LYMPHOCYTES # 1.8 10^3/ul (0.8-2.9); LYMPHOCYTES % 30.6 % (15.0-51.0); MEAN CORPUSCULAR HEMOGLOBIN 29.5 pg (29.0-33.0); MEAN CORPUSCULAR HGB CONC 31.5 g/dl (32.0-37.0); MEAN CORPUSCULAR VOLUME 93.4 fl (82.0-101.0); MEAN PLATELET VOLUME 10.5 fl (7.4-10.4); MONOCYTE # 0.6 10^3/ul (0.3-0.9); MONOCYTES % 10.2 % (0.0-11.0); NEUTROPHIL # 3.1 10^3/ul (1.6-7.5); NEUTROPHILS % 52.8 % (39.0-77.0); PLATELET COUNT 341 10^3/UL (140-415); RED BLOOD COUNT 3.19 10^6/ul (4.20-5.40); RED CELL DISTRIBUTION WIDTH 14.8 % (11.5-14.5); WHITE BLOOD COUNT 5.8 10^3/ul (4.8-10.8)
[2016-10-23 05:58] LABS: ALBUMIN 3.2 g/dl (3.3-4.9)
[2016-10-23 05:59] LABS: INR 1.18; POTASSIUM 3.7 mmol/L (3.5-5.1); PROTIME 15.1 Sec (12.2-14.2); PT RATIO 1.2
[2016-10-23 06:00] LABS: PARTIAL THROMBOPLASTIN TIME 48.4 Sec (25.0-35.0)
[2016-10-23 06:01] LABS: ALBUMIN/GLOBULIN RATIO 1.06; CALCIUM 8.7 mg/dl (8.4-10.2); CREATININE 0.49 mg/dl (0.44-1.00); TOTAL PROTEIN 6.2 g/dl (6.1-8.1)
[2016-10-23 07:44] VITALS: BP 120/58; RESP 18
[2016-10-23] MEDS: INSULIN ASPART [NOVOLOG] 3 ML PEN SC SCH ×4 (08:15→22:36)
[2016-10-23] MEDS: GABAPENTIN 300 MG CAP PO SCH ×3 (08:41→22:28)
[2016-10-23] MEDS: ASPIRIN 81 MG TAB PO SCH (08:41)
[2016-10-23] MEDS: LISINOPRIL 5 MG TAB PO SCH (08:41)
[2016-10-23] MEDS: HEPARIN 5,000 UNIT/0.5 ML SYG SC SCH ×2 (08:56→22:31)
--- NOTE | 2016-10-23 11:32 | CONS ---
Date/Time of Note Date/Time of Note DATE: 10/23/16 TIME: 11:29 Assessment/Plan Assessment/Plan Chief Complaint/Hosp Course IMPRESSION: 1. Preoperative evaluation prior to possible lower extremity revascularization. - No ischemia by lexiscan and NL EF by echo with no sig valve abnl. Thus ok to proceed with surgery at relatively low to moderate risk on current medications without further noninvasive evaluation. Now post-op s/p LE angio 2. Abnormal electrocardiogram with T-wave flattening isolated to the aVL.- negative troponin x 3 3. Hypertension with currently borderline hypotension today. 4. History of dyslipidemia. 5. Diabetes mellitus. 6. Peripheral arterial disease with right lower extremity gangrenous changes. 7. Status post left [id number] amputation. 8. Anemia. 9. C dif positive Recc: -Tele -Continue asa -Continue statin -Continue ACEI and follow BP closely -local wound care -Continue flagyl -Ongoing vascular/podiatry eval and treatment Problems: Consultation Date/Type/Reason Admit Date/Time Oct 14, 2016 at 16:41 Initial Consult Date 10/14/2016 Type of Consultation: Cardiology Reason for Consultation abnl ecg/HTN Referring Provider: JOAQUINA MCKEON MD Exam/Review of Systems Vital Signs Vitals Vital Signs Date Time Temp Pulse Resp B/P Pulse Ox O2 Delivery O2 Flow Rate FiO2 10/23/16 07:44 98.0 70 18 120/58 97 10/22/16 20:00 Room Air Intake and Output 10/22/16 10/22/16 10/23/16 15:00 23:00 07:00 Intake Total 450 ml 1320 ml 360 ml Output Total 1000 ml 600 ml Balance 450 ml 320 ml -240 ml Exam Review of Systems: CONSTITUTIONAL: No fevers, chills. PULMONARY: No sob CARDIOVASCULAR: No chest pain/palpitations GASTROINTESTINAL: No nausea/vomiting. GENITOURINARY: No hematuria/dysuria. MUSCULOSKELETAL: pain in foot PSYCHIATRIC: The patient denies depression. NEUROLOGIC: No weakness Constitutional: alert, oriented Psych: no complaints Head: normocephalic ENMT: mucosa pink and moist Neck: jvd (8 cm water), supple Respiratory: diminished breath sounds (at bases/B) Cardiovascular: regular rate and rhythm Gastrointestinal: non-tender, soft Musculoskeletal: other (s/p LLE AKA) Extremities: other (RLE covered by dressing with gangrenous changes) Neurological: other (No focal deficits) Results Result Diagram: 10/23/16 0509 10/23/16 0509 Results 24 hrs Laboratory Tests Test 10/22/16 12:07 10/22/16 16:55 10/22/16 17:02 10/22/16 21:48 Bedside Glucose 151 156 220 Vancomycin Level Trough 13.7 Test 10/23/16 05:09 10/23/16 05:20 10/23/16 07:54 White Blood Count 5.8 Red Blood Count 3.19 L Hemoglobin 9.4 L Hematocrit 29.8 L Mean Corpuscular Volume 93.4 Mean Corpuscular Hemoglobin 29.5 Mean Corpuscular Hemoglobin Concent 31.5 L Red Cell Distribution Width 14.8 H Platelet Count 341 Mean Platelet Volume 10.5 H Neutrophils % 52.8 Lymphocytes % 30.6 Monocytes % 10.2 Eosinophils % 5.2 Basophils % 0.2 Nucleated Red Blood Cells % 0.0 Neutrophils # 3.1 Lymphocytes # 1.8 Monocytes # 0.6 Eosinophils # 0.3 Basophils # 0.0 Nucleated Red Blood Cells # 0.0 Prothrombin Time 15.1 H Prothrombin Time Ratio 1.2 INR International Normalized Ratio 1.18 Activated Partial Thromboplast Time 48.4 H Sodium Level 142 Potassium Level 3.7 Chloride Level 104 Carbon Dioxide Level 28 Anion Gap 14 Blood Urea Nitrogen 12 Creatinine 0.49 Glucose Level 126 Calcium Level 8.7 Total Bilirubin 0.0 L Direct Bilirubin 0.00 Indirect Bilirubin 0.0 Aspartate Amino Transf (AST/SGOT) 17 Alanine Aminotransferase (ALT/SGPT) 22 Alkaline Phosphatase 85 Total Protein 6.2 Albumin 3.2 L Globulin 3.00 Albumin/Globulin Ratio 1.06 Bedside Glucose 121 137 Medications Medications Current Medications Aspirin (Aspirin) 81 mg DAILY PO Last administered on 10/23/16 08:41; Admin Dose 81 MG; Start 10/14/16 at 09:00 Gabapentin (Neurontin) 300 mg TID PO Last administered on 10/23/16 08:41; Admin Dose 300 MG; Start 10/13/16 at 21:00 Insulin Glargine (Lantus) 5 unit HS SC Last administered on 10/22/16 21:57; Admin Dose 5 UNIT; Start 10/13/16 at 21:00 Atorvastatin Calcium (Lipitor) 10 mg HS PO Last administered on 10/22/16 21:49 ; Admin Dose 10 MG; Start 10/13/16 at 21:00 Ondansetron HCl (Zofran Inj) 4 mg Q6H PRN IV NAUSEA AND/OR VOMITING Last administered on 10/23/16 05:39; Admin Dose 4 MG; Start 10/13/16 at 15:30 Acetaminophen (Tylenol Tab) 650 mg Q6H PRN PO PAIN LEVEL 1-3 OR FEVER Last administered on 10/22/16 09:48; Admin Dose 650 MG; Start 10/13/16 at 15:30 Acetaminophen (Tylenol Supp) 650 mg Q6H PRN DC PAIN LEVEL 1-3 OR FEVER; Start 10/13/16 at 15:30 Docusate Sodium (Colace) 100 mg Q12H PRN PO CONSTIPATION; Start 10/13/16 at 15: 30 Bisacodyl (Dulcolax) 5 mg DAILY PRN PO CONSTIPATION; Start 10/13/16 at 15:30 Pantoprazole 40 mg 40 mg DAILY@06 PO Last administered on 10/23/16 05:14; Admin Dose 40 MG; Start 10/14/16 at 06:00 Ceftriaxone Sodium (Rocephin) 50 ml @ 100 mls/hr Q24H IVPB Last administered on 10/22/16 15:45; Admin Dose 100 MLS/HR; Start 10/13/16 at 15:30 Diphenhydramine HCl (Benadryl) 25 mg Q6H PRN PO ITCHING; Start 10/13/16 at 15: 30 Miscellaneous Information 1 ea NOTE XX ; Start 10/13/16 at 16:00 Glucose (Glutose) 15 gm Q15M PRN PO DECREASED GLUCOSE; Start 10/13/16 at 16:00 Glucose (Glutose) 22.5 gm Q15M PRN PO DECREASED GLUCOSE; Start 10/13/16 at 16: 00 Dextrose (D50w Syringe) 25 ml Q15M PRN IV DECREASED GLUCOSE; Start 10/13/16 at 16:00 Dextrose (D50w Syringe) 50 ml Q15M PRN IV DECREASED GLUCOSE; Start 10/13/16 at 16:00 Glucagon (Glucagen) 1 mg Q15M PRN IM DECREASED GLUCOSE; Start 10/13/16 at 16:00 Glucose (Glutose) 15 gm Q15M PRN BUCCAL DECREASED GLUCOSE; Start 10/13/16 at 16 :00 Heparin Sodium (Porcine) (Heparin (5000 Units/0.5 ml)) 5,000 unit BID SC Last administered on 10/23/16 08:56; Admin Dose 5,000 UNIT; Start 10/13/16 at 21:00 Hydralazine HCl (Apresoline) 10 mg Q6H PRN IV SBP >160 Last administered on 19:57; Admin Dose 10 MG; Start 10/13/16 at 20:00 Lisinopril 5 mg 5 mg DAILY PO Last administered on 10/23/16 08:41; Admin Dose 5 MG; Start 10/17/16 at 09:00 Vancomycin HCl (Vancocin) 250 ml @ 125 mls/hr Q12H IVPB Last administered on 05:14; Admin Dose 125 MLS/HR; Start 10/18/16 at 06:00 Metronidazole (Flagyl) 500 mg Q8 PO Last administered on 10/23/16 05:14; Admin Dose 500 MG; Start 10/18/16 at 09:30 Oxycodone/ Acetaminophen (Percocet (5/ 325)) 2 tab Q4H PRN PO MODERATE PAIN LEVEL 4-6 Last administered on 10/22/16 21:49; Admin Dose 2 TAB; Start at 01:00 KAYLEIGH NORIEGA Oct 23, 2016 11:32
--- NOTE | 2016-10-23 11:35 | CONS ---
Date/Time of Note Date/Time of Note DATE: 10/23/16 TIME: 11:33 Assessment/Plan Assessment/Plan Chief Complaint/Hosp Course SUBJECTIVE: Alert, looks comfortable, no fevers. ANTIMICROBIALS: 1. Vancomycin. 2. Rocephin. 3. Flagyl PHYSICAL EXAMINATION: GENERAL: This is a well-nourished, well-developed, middle-aged woman who is alert, in no distress. HEENT: Head atraumatic, normocephalic. Sclerae anicteric. Buccal mucosa dry. NECK: Supple. CHEST: Rise symmetrical. Breath sounds diminished to bases. HEART: S1, S2. ABDOMEN: Soft. Bowel tones present. EXTREMITIES: With right foot gangrenous changes. ASSESSMENT: 1. Right foot cellulitis with gangrene. 2. Peripheral vascular disease. 3. Hypertension. 4. 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 5. C dif colitis PLAN: Stable, no diarrhea, will change abx to oral Doxycycline, continue Flagyl , pending vascular intervention next week DW Dr Mckeon [facility] staff Problems: Consultation Date/Type/Reason Admit Date/Time Oct 14, 2016 at 16:41 Type of Consultation: id Referring Provider: JOAQUINA MCKEON MD Exam/Review of Systems Vital Signs Vitals Vital Signs Date Time Temp Pulse Resp B/P Pulse Ox O2 Delivery O2 Flow Rate FiO2 10/23/16 07:44 98.0 70 18 120/58 97 10/22/16 20:00 Room Air Intake and Output 10/22/16 10/22/16 10/23/16 15:00 23:00 07:00 Intake Total 450 ml 1320 ml 360 ml Output Total 1000 ml 600 ml Balance 450 ml 320 ml -240 ml Results Result Diagram: 10/23/16 0509 10/23/16 0509 Results 24 hrs Laboratory Tests Test 10/22/16 12:07 10/22/16 16:55 10/22/16 17:02 10/22/16 21:48 Bedside Glucose 151 156 220 Vancomycin Level Trough 13.7 Test 10/23/16 05:09 10/23/16 05:20 10/23/16 07:54 White Blood Count 5.8 Red Blood Count 3.19 L Hemoglobin 9.4 L Hematocrit 29.8 L Mean Corpuscular Volume 93.4 Mean Corpuscular Hemoglobin 29.5 Mean Corpuscular Hemoglobin Concent 31.5 L Red Cell Distribution Width 14.8 H Platelet Count 341 Mean Platelet Volume 10.5 H Neutrophils % 52.8 Lymphocytes % 30.6 Monocytes % 10.2 Eosinophils % 5.2 Basophils % 0.2 Nucleated Red Blood Cells % 0.0 Neutrophils # 3.1 Lymphocytes # 1.8 Monocytes # 0.6 Eosinophils # 0.3 Basophils # 0.0 Nucleated Red Blood Cells # 0.0 Prothrombin Time 15.1 H Prothrombin Time Ratio 1.2 INR International Normalized Ratio 1.18 Activated Partial Thromboplast Time 48.4 H Sodium Level 142 Potassium Level 3.7 Chloride Level 104 Carbon Dioxide Level 28 Anion Gap 14 Blood Urea Nitrogen 12 Creatinine 0.49 Glucose Level 126 Calcium Level 8.7 Total Bilirubin 0.0 L Direct Bilirubin 0.00 Indirect Bilirubin 0.0 Aspartate Amino Transf (AST/SGOT) 17 Alanine Aminotransferase (ALT/SGPT) 22 Alkaline Phosphatase 85 Total Protein 6.2 Albumin 3.2 L Globulin 3.00 Albumin/Globulin Ratio 1.06 Bedside Glucose 121 137 Medications Medications Current Medications Aspirin (Aspirin) 81 mg DAILY PO Last administered on 10/23/16 08:41; Admin Dose 81 MG; Start 10/14/16 at 09:00 Gabapentin (Neurontin) 300 mg TID PO Last administered on 10/23/16 08:41; Admin Dose 300 MG; Start 10/13/16 at 21:00 Insulin Glargine (Lantus) 5 unit HS SC Last administered on 10/22/16 21:57; Admin Dose 5 UNIT; Start 10/13/16 at 21:00 Atorvastatin Calcium (Lipitor) 10 mg HS PO Last administered on 10/22/16 21:49 ; Admin Dose 10 MG; Start 10/13/16 at 21:00 Ondansetron HCl (Zofran Inj) 4 mg Q6H PRN IV NAUSEA AND/OR VOMITING Last administered on 10/23/16 05:39; Admin Dose 4 MG; Start 10/13/16 at 15:30 Acetaminophen (Tylenol Tab) 650 mg Q6H PRN PO PAIN LEVEL 1-3 OR FEVER Last administered on 10/22/16 09:48; Admin Dose 650 MG; Start 10/13/16 at 15:30 Acetaminophen (Tylenol Supp) 650 mg Q6H PRN CO PAIN LEVEL 1-3 OR FEVER; Start 10/13/16 at 15:30 Docusate Sodium (Colace) 100 mg Q12H PRN PO CONSTIPATION; Start 10/13/16 at 15: 30 Bisacodyl (Dulcolax) 5 mg DAILY PRN PO CONSTIPATION; Start 10/13/16 at 15:30 Pantoprazole 40 mg 40 mg DAILY@06 PO Last administered on 10/23/16 05:14; Admin Dose 40 MG; Start 10/14/16 at 06:00 Ceftriaxone Sodium (Rocephin) 50 ml @ 100 mls/hr Q24H IVPB Last administered on 10/22/16 15:45; Admin Dose 100 MLS/HR; Start 10/13/16 at 15:30 Diphenhydramine HCl (Benadryl) 25 mg Q6H PRN PO ITCHING; Start 10/13/16 at 15: 30 Miscellaneous Information 1 ea NOTE XX ; Start 10/13/16 at 16:00 Glucose (Glutose) 15 gm Q15M PRN PO DECREASED GLUCOSE; Start 10/13/16 at 16:00 Glucose (Glutose) 22.5 gm Q15M PRN PO DECREASED GLUCOSE; Start 10/13/16 at 16: 00 Dextrose (D50w Syringe) 25 ml Q15M PRN IV DECREASED GLUCOSE; Start 10/13/16 at 16:00 Dextrose (D50w Syringe) 50 ml Q15M PRN IV DECREASED GLUCOSE; Start 10/13/16 at 16:00 Glucagon (Glucagen) 1 mg Q15M PRN IM DECREASED GLUCOSE; Start 10/13/16 at 16:00 Glucose (Glutose) 15 gm Q15M PRN BUCCAL DECREASED GLUCOSE; Start 10/13/16 at 16 :00 Heparin Sodium (Porcine) (Heparin (5000 Units/0.5 ml)) 5,000 unit BID SC Last administered on 10/23/16 08:56; Admin Dose 5,000 UNIT; Start 10/13/16 at 21:00 Hydralazine HCl (Apresoline) 10 mg Q6H PRN IV SBP >160 Last administered on 19:57; Admin Dose 10 MG; Start 10/13/16 at 20:00 Lisinopril 5 mg 5 mg DAILY PO Last administered on 10/23/16 08:41; Admin Dose 5 MG; Start 10/17/16 at 09:00 Vancomycin HCl (Vancocin) 250 ml @ 125 mls/hr Q12H IVPB Last administered on 05:14; Admin Dose 125 MLS/HR; Start 10/18/16 at 06:00 Metronidazole (Flagyl) 500 mg Q8 PO Last administered on 10/23/16 05:14; Admin Dose 500 MG; Start 10/18/16 at 09:30 Oxycodone/ Acetaminophen (Percocet (5/ 325)) 2 tab Q4H PRN PO MODERATE PAIN LEVEL 4-6 Last administered on 10/22/16 21:49; Admin Dose 2 TAB; Start at 01:00 KATHERYN RINALDI NP Oct 23, 2016 11:35
--- NOTE | 2016-10-23 12:10 | PN ---
Date/Time of Note Date/Time of Note DATE: 10/23/16 TIME: 11:53 Assessment/Plan VTE Prophylaxis VTE Prophylaxis Intervention: heparin Lines/Catheters IV Catheter Type (from Nrsg): PICC Line Central line still needed: Yes (iv ABX ) Assessment/Plan Assessment/Plan 1. Right foot cellulitis with gangrene.s/p LE angiogram showed moderate obstructive PAD - 2. Peripheral vascular disease. 3. Hypertension. 4. 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 5. Diabetic neuropathy 6. anemia of chronic Disease Plan: Continue current care Bp stable S/P RLE angiogram that demonstrated infrainguinal disease.- as per vascular surgery and podiatry plan IV abx, ID following heparin for DVT prophylaxis Subjective 24 Hr Interval Summary Free Text/Dictation podiatry waiting for demarcation Exam/Review of Systems Vital Signs Vitals Vital Signs Date Time Temp Pulse Resp B/P Pulse Ox O2 Delivery O2 Flow Rate FiO2 10/23/16 07:44 98.0 70 18 120/58 97 10/22/16 20:00 Room Air Intake and Output 10/22/16 10/22/16 10/23/16 15:00 23:00 07:00 Intake Total 450 ml 1320 ml 360 ml Output Total 1000 ml 600 ml Balance 450 ml 320 ml -240 ml Exam HEENT: Pupils are equal and reactive to light. Anicteric sclerae. NECK: Supple, no JVD noted, no cervical adenopathy, no carotid bruits heard. LUNGS: Fair breath sounds bilaterally. CARDIOVASCULAR: S1, S2 normal. ABDOMEN: Soft, nontender. No organomegaly or masses noted. EXTREMITIES: Right foot fourth and fifth toe gangrenous changes status post left lower extremity AKA. No edema or cyanosis noted. NEUROLOGICAL: Awake. Results Result Diagram: 10/23/16 0509 10/23/16 0509 Results 24 hrs Laboratory Tests Test 10/22/16 12:07 10/22/16 16:55 10/22/16 17:02 10/22/16 21:48 Bedside Glucose 151 156 220 Vancomycin Level Trough 13.7 Test 10/23/16 05:09 10/23/16 05:20 10/23/16 07:54 White Blood Count 5.8 Red Blood Count 3.19 L Hemoglobin 9.4 L Hematocrit 29.8 L Mean Corpuscular Volume 93.4 Mean Corpuscular Hemoglobin 29.5 Mean Corpuscular Hemoglobin Concent 31.5 L Red Cell Distribution Width 14.8 H Platelet Count 341 Mean Platelet Volume 10.5 H Neutrophils % 52.8 Lymphocytes % 30.6 Monocytes % 10.2 Eosinophils % 5.2 Basophils % 0.2 Nucleated Red Blood Cells % 0.0 Neutrophils # 3.1 Lymphocytes # 1.8 Monocytes # 0.6 Eosinophils # 0.3 Basophils # 0.0 Nucleated Red Blood Cells # 0.0 Prothrombin Time 15.1 H Prothrombin Time Ratio 1.2 INR International Normalized Ratio 1.18 Activated Partial Thromboplast Time 48.4 H Sodium Level 142 Potassium Level 3.7 Chloride Level 104 Carbon Dioxide Level 28 Anion Gap 14 Blood Urea Nitrogen 12 Creatinine 0.49 Glucose Level 126 Calcium Level 8.7 Total Bilirubin 0.0 L Direct Bilirubin 0.00 Indirect Bilirubin 0.0 Aspartate Amino Transf (AST/SGOT) 17 Alanine Aminotransferase (ALT/SGPT) 22 Alkaline Phosphatase 85 Total Protein 6.2 Albumin 3.2 L Globulin 3.00 Albumin/Globulin Ratio 1.06 Bedside Glucose 121 137 Medications Medications Current Medications Aspirin (Aspirin) 81 mg DAILY PO Last administered on 10/23/16 08:41; Admin Dose 81 MG; Start 10/14/16 at 09:00 Gabapentin (Neurontin) 300 mg TID PO Last administered on 10/23/16 08:41; Admin Dose 300 MG; Start 10/13/16 at 21:00 Insulin Glargine (Lantus) 5 unit HS SC Last administered on 10/22/16 21:57; Admin Dose 5 UNIT; Start 10/13/16 at 21:00 Atorvastatin Calcium (Lipitor) 10 mg HS PO Last administered on 10/22/16 21:49 ; Admin Dose 10 MG; Start 10/13/16 at 21:00 Ondansetron HCl (Zofran Inj) 4 mg Q6H PRN IV NAUSEA AND/OR VOMITING Last administered on 10/23/16 05:39; Admin Dose 4 MG; Start 10/13/16 at 15:30 Acetaminophen (Tylenol Tab) 650 mg Q6H PRN PO PAIN LEVEL 1-3 OR FEVER Last administered on 10/22/16 09:48; Admin Dose 650 MG; Start 10/13/16 at 15:30 Acetaminophen (Tylenol Supp) 650 mg Q6H PRN OR PAIN LEVEL 1-3 OR FEVER; Start 10/13/16 at 15:30 Docusate Sodium (Colace) 100 mg Q12H PRN PO CONSTIPATION; Start 10/13/16 at 15: 30 Bisacodyl (Dulcolax) 5 mg DAILY PRN PO CONSTIPATION; Start 10/13/16 at 15:30 Pantoprazole 40 mg 40 mg DAILY@06 PO Last administered on 10/23/16 05:14; Admin Dose 40 MG; Start 10/14/16 at 06:00 Ceftriaxone Sodium (Rocephin) 50 ml @ 100 mls/hr Q24H IVPB Last administered on 10/22/16 15:45; Admin Dose 100 MLS/HR; Start 10/13/16 at 15:30 Diphenhydramine HCl (Benadryl) 25 mg Q6H PRN PO ITCHING; Start 10/13/16 at 15: 30 Miscellaneous Information 1 ea NOTE XX ; Start 10/13/16 at 16:00 Glucose (Glutose) 15 gm Q15M PRN PO DECREASED GLUCOSE; Start 10/13/16 at 16:00 Glucose (Glutose) 22.5 gm Q15M PRN PO DECREASED GLUCOSE; Start 10/13/16 at 16: 00 Dextrose (D50w Syringe) 25 ml Q15M PRN IV DECREASED GLUCOSE; Start 10/13/16 at 16:00 Dextrose (D50w Syringe) 50 ml Q15M PRN IV DECREASED GLUCOSE; Start 10/13/16 at 16:00 Glucagon (Glucagen) 1 mg Q15M PRN IM DECREASED GLUCOSE; Start 10/13/16 at 16:00 Glucose (Glutose) 15 gm Q15M PRN BUCCAL DECREASED GLUCOSE; Start 10/13/16 at 16 :00 Heparin Sodium (Porcine) (Heparin (5000 Units/0.5 ml)) 5,000 unit BID SC Last administered on 10/23/16 08:56; Admin Dose 5,000 UNIT; Start 10/13/16 at 21:00 Hydralazine HCl (Apresoline) 10 mg Q6H PRN IV SBP >160 Last administered on 19:57; Admin Dose 10 MG; Start 10/13/16 at 20:00 Lisinopril 5 mg 5 mg DAILY PO Last administered on 10/23/16 08:41; Admin Dose 5 MG; Start 10/17/16 at 09:00 Vancomycin HCl (Vancocin) 250 ml @ 125 mls/hr Q12H IVPB Last administered on 05:14; Admin Dose 125 MLS/HR; Start 10/18/16 at 06:00 Metronidazole (Flagyl) 500 mg Q8 PO Last administered on 10/23/16 05:14; Admin Dose 500 MG; Start 10/18/16 at 09:30 Oxycodone/ Acetaminophen (Percocet (5/ 325)) 2 tab Q4H PRN PO MODERATE PAIN LEVEL 4-6 Last administered on 10/22/16 21:49; Admin Dose 2 TAB; Start at 01:00 ALYSSA VENCES MD Oct 23, 2016 12:10
[2016-10-23] MEDS: CEFTRIAXONE 1 GM/50 ML (PMX) 50 ML IVPB SCH (14:36)
[2016-10-23 19:24] VITALS: BP 139/65; RESP 20
[2016-10-23] MEDS: OXYCODONE/ACETAMINOPHEN (5/325) TAB PO PRN (22:28)
[2016-10-23] MEDS: ATORVASTATIN 10 MG TAB PO SCH (22:29)
[2016-10-23] MEDS: INSULIN GLARGINE [LANtus] 3 ML PEN SC SCH (22:35)
[2016-10-24] MEDS: PANTOPRAZOLE (EC) 40 MG TAB PO SCH (06:11)
[2016-10-24] MEDS: metroNIDAZOLE 500 MG TAB PO SCH ×3 (06:11→21:05)
[2016-10-24 07:41] VITALS: BP 133/64; RESP 18
[2016-10-24] MEDS: INSULIN ASPART [NOVOLOG] 3 ML PEN SC SCH ×4 (08:15→20:54)
[2016-10-24] MEDS: ASPIRIN 81 MG TAB PO SCH (08:26)
[2016-10-24] MEDS: GABAPENTIN 300 MG CAP PO SCH ×3 (08:26→20:32)
[2016-10-24] MEDS: DOXYCYCLINE 100 MG TAB PO SCH ×2 (08:26→20:32)
[2016-10-24] MEDS: LISINOPRIL 5 MG TAB PO SCH (08:27)
[2016-10-24] MEDS: HEPARIN 5,000 UNIT/0.5 ML SYG SC SCH ×2 (08:39→20:43)
--- NOTE | 2016-10-24 12:35 | PN ---
Date/Time of Note Date/Time of Note DATE: 10/24/16 TIME: 12:33 Assessment/Plan Lines/Catheters IV [facility] Type (from [facility]): P[facility] Line Assessment/Plan Chief Complaint/Hosp Course Bilateral lower extremity atherosclerosis with gangrene: S/P RLE angiogram that demonstrated infrainguinal disease. The patient does have in line flow to the foot and her gangrene has become dry and not progressed. in light of her CDiff active infection will await for that to resolve and recommend debridement per podiatry recommendations. Will follow wound very closely and evaluate her perfusion intraop if needed. If concern for wound healing is present then would recommend Endovascular intervention in an Antegrade fashion. -The patient has developed a right lower extremity gangrene in which it is a very complicated situation as the patient has had a left hip disarticulation and providing her with vascular interventions is limited. Upon our extensive discussion with the patient she has been very emotional and has asked for everything that can be done to preserve her right lower extremity. Patient is quite dependent per her family and herself to about 80% with her right lower extremity in terms of being able to transfer and her mobility at home. We have provided her offer of conservative therapy for the wound care and eventual amputation if she has an infection that is threatening her life. We have mentioned that if she develops rest pain that it is intolerable and then an amputation at that point. We have also offered her possible right lower extremity angiogram to further delineate her tibioperoneal disease and evaluate the areas that have been found to be monophasic with ultrasound. I have spoken with the family that she may require a revascularization and they have agreed to have everything done, no matter the risks entailed. -Optimize vascular status (BP meds, diet, nutrition, exercise, sugar control, antiplatelets). -Continue antibiotics per ID -Appreciate cardiology feedback -Thank you for allowing us to partake in the care of your patient. Please call with any questions. Problems: Subjective 24 Hr Interval Summary Constitutional: improved Pain Control: mild Exam/Review of Systems Vital Signs Vitals Vital Signs Date Time Temp Pulse Resp B/P Pulse Ox O2 Delivery O2 Flow Rate FiO2 10/24/16 07:41 98.7 68 18 133/64 96 10/23/16 20:00 Room Air Intake and Output 10/23/16 10/23/16 10/24/16 15:00 23:00 07:00 Intake Total 250 ml 2280 ml 360 ml Output Total 1600 ml 1000 ml Balance 250 ml 680 ml -640 ml Exam ENMT: mucosa pink and moist, nl external ears & nose, nl lips & teeth, nl nasal mucosa & septum Neck: non-tender, supple Respiratory: clear to auscultation, normal air movement Cardiovascular: nl pulses, regular rate and rhythm Additional Comments EXTREMITIES: Left lower extremity: left hip disarticulation surgical scar, mid aspect of the wound with granulation tissue, good epithelization Some Skin excoriation. Right lower extremity: Palpable femoral pulse, seems to be a bit faint. Nonpalpable pedal pulse. Motor and sensory intact. Capillary refill 4 seconds. Dependent rubor of the foot. Gangrene of the fourth toe and gangrene of the fifth toe - dry with some demarcation Results Result Diagram: 10/23/16 0509 10/23/16 0509 VIVIAN SAENZ MD Oct 24, 2016 12:35
--- NOTE | 2016-10-24 12:50 | PN ---
Date/Time of Note Date/Time of Note DATE: 10/24/16 TIME: 12:48 Assessment/Plan VTE Prophylaxis VTE Prophylaxis Intervention: heparin Lines/Catheters IV Catheter Type (from Nrs): PICC Line Central line still needed: Yes (Iv abx for gangrene) Assessment/Plan Assessment/Plan 1. Right foot cellulitis with gangrene.s/p LE angiogram showed moderate obstructive PAD - 2. Peripheral vascular disease. 3. Hypertension. 4. 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 5. Diabetic neuropathy 6. anemia of chronic Disease Plan: Continue current care Bp stable S/P RLE angiogram that demonstrated infrainguinal disease.- as per vascular surgery and podiatry plan - possible vascular intervention next week IV abx, ID following heparin for DVT prophylaxis Subjective 24 Hr Interval Summary Free Text/Dictation doing better, now Vascular surgery planning for LE angiogramnext week Exam/Review of Systems Vital Signs Vitals Vital Signs Date Time Temp Pulse Resp B/P Pulse Ox O2 Delivery O2 Flow Rate FiO2 10/24/16 07:41 98.7 68 18 133/64 96 10/23/16 20:00 Room Air Intake and Output 10/23/16 10/23/16 10/24/16 15:00 23:00 07:00 Intake Total 250 ml 2280 ml 360 ml Output Total 1600 ml 1000 ml Balance 250 ml 680 ml -640 ml Exam HEENT: Pupils are equal and reactive to light. Anicteric sclerae. NECK: Supple, no JVD noted, no cervical adenopathy, no carotid bruits heard. LUNGS: Fair breath sounds bilaterally. CARDIOVASCULAR: S1, S2 normal. ABDOMEN: Soft, nontender. No organomegaly or masses noted. EXTREMITIES: Right foot fourth and fifth toe gangrenous changes status post left lower extremity AKA. No edema or cyanosis noted. NEUROLOGICAL: Awake. Results Result Diagram: 10/23/16 0509 10/23/16 0509 Results 24 hrs Laboratory Tests Test 10/23/16 17:03 10/23/16 22:27 10/24/16 02:16 10/24/16 07:50 Bedside Glucose 125 205 131 97 Test 10/24/16 11:53 Bedside Glucose 136 Medications Medications Current Medications Aspirin (Aspirin) 81 mg DAILY PO Last administered on 10/24/16t 08:26; Admin Dose 81 MG; Start 10/14/16 at 09:00 Gabapentin (Neurontin) 300 mg TID PO Last administered on 10/24/16 08:26; Admin Dose 300 MG; Start 10/13/16 at 21:00 Insulin Glargine (Lantus) 5 unit HS SC Last administered on 10/23/16 22:35; Admin Dose 5 UNIT; Start 10/13/16 at 21:00 Atorvastatin Calcium (Lipitor) 10 mg HS PO Last administered on 10/23/16 22:29 ; Admin Dose 10 MG; Start 10/13/16 at 21:00 Ondansetron HCl (Zofran Inj) 4 mg Q6H PRN IV NAUSEA AND/OR VOMITING Last administered on 10/23/16 05:39; Admin Dose 4 MG; Start 10/13/16 at 15:30 Acetaminophen (Tylenol Tab) 650 mg Q6H PRN PO PAIN LEVEL 1-3 OR FEVER Last administered on 10/22/16 09:48; Admin Dose 650 MG; Start 10/13/16 at 15:30 Acetaminophen (Tylenol Supp) [address] PAIN LEVEL 1-3 OR FEVER; Start 10/13/16 at 15:30 Docusate Sodium (Colace) 100 mg Q12H PRN PO CONSTIPATION; Start 10/13/16 at 15: 30 Bisacodyl (Dulcolax) 5 mg DAILY PRN PO CONSTIPATION; Start 10/13/16 at 15:30 Pantoprazole (Protonix Tab) 40 mg DAILY@06 PO Last administered on 10/24/16 06 :11; Admin Dose 40 MG; Start 10/14/16 at 06:00 Diphenhydramine HCl (Benadryl) 25 mg Q6H PRN PO ITCHING; Start 10/13/16 at 15: 30 Miscellaneous Information 1 ea NOTE XX ; Start 10/13/16 at 16:00 Glucose (Glutose) 15 gm Q15M PRN PO DECREASED GLUCOSE; Start 10/13/16 at 16:00 Glucose (Glutose) 22.5 gm Q15M PRN PO DECREASED GLUCOSE; Start 10/13/16 at 16: 00 Dextrose (D50w Syringe) 25 ml Q15M PRN IV DECREASED GLUCOSE; Start 10/13/16 at 16:00 Dextrose (D50w Syringe) 50 ml Q15M PRN IV DECREASED GLUCOSE; Start 10/13/16 at 16:00 Glucagon (Glucagen) 1 mg Q15M PRN IM DECREASED GLUCOSE; Start 10/13/16 at 16:00 Glucose (Glutose) 15 gm Q15M PRN BUCCAL DECREASED GLUCOSE; Start 10/13/16 at 16 :00 Heparin Sodium (Porcine) (Heparin (5000 Units/0.5 ml)) 5,000 unit BID SC Last administered on 10/24/16 08:39; Admin Dose 5,000 UNIT; Start 10/13/16 at 21:00 Hydralazine HCl (Apresoline) 10 mg Q6H PRN IV SBP >160 Last administered on 19:57; Admin Dose 10 MG; Start 10/13/16 at 20:00 Lisinopril (Zestril) 5 mg DAILY PO Last administered on 10/24/16 08:27; Admin Dose 5 MG; Start 10/17/16 at 09:00 Metronidazole (Flagyl) 500 mg Q8 PO Last administered on 10/24/16 06:11; Admin Dose 500 MG; Start 10/18/16 at 09:30 Oxycodone/ Acetaminophen (Percocet (5/ 325)) 2 tab Q4H PRN PO MODERATE PAIN LEVEL 4-6 Last administered on 10/23/16 22:28; Admin Dose 2 TAB; Start at 01:00 Doxycycline Hyclate (Vibramycin) 100 mg BID PO Last administered on 10/24/16 08:26; Admin Dose 100 MG; Start 10/24/16 at 09:00 ALYSSA VENCES MD Oct 24, 2016 12:50
--- NOTE | 2016-10-24 14:30 | PN ---
DATE: 10/24/2016 On questioning, the patient offers no complaints. No chest pain, no shortness of breath and is feeli ng fine. VITAL SIGNS: Stable. Blood pressure is 103/64, heart rate of 68, respiratory rate of 18, she is a febrile. HEAD: Normocephaly. She has no xanthelasma or facial droop. NECK: JVP not traced. CHEST: Bilaterally symmetrical and nontender. HEART: PMI localized in the fourth intercostal space 1 cm ____ to midclavicular line. S1, S2 are r egular. LUNGS: Clear to percussion and auscultation. ABDOMEN: Soft, nontender belly without any organomegaly. Bowel sounds present. No ____ palpable . No abdominal bruits are heard. EXTREMITIES: Reveals good femoral and pedal pulses. No femoral bruits. No pedal edema. No clubbi ng, no cyanosis. LABORATORIES: There was no CBC today ____. Blood sugar today is 136. There are no other laborator ies today. IMPRESSION: 1. Abnormal EKG with T-wave flattening in aVL. 2. Hypertension, which is under control at this stage. 3. History of dyslipidemia. 4. Peripheral arterial disease. PLAN: From a cardiac standpoint, same treatment. Dictated By: VALE DICKINSON MD, RA/TRACE Conf#: [id number] DID#: [id number]
--- NOTE | 2016-10-24 16:47 | CONS ---
Date/Time of Note Date/Time of Note DATE: 10/24/16 TIME: 16:46 Assessment/Plan Assessment/Plan Chief Complaint/Hosp Course ID PROGRESS NOTE CURRENT ABX=> Doxy #2 + Flagyl s/p Vanco IV + Ceftriaxone 24H INTERVAL SUMMARY * No new issues, no c/o, doing OK, VSS, no fevers * S/P RLE angiogram that demonstrated infrainguinal disease= vascular intervention on hold for (+)C.Diff PHYSICAL EXAMINATION: GENERAL:VSS, NAD HEENT: Unremarkable NECK: Supple, trachea midline. CHEST: Rise symmetrical, without dyspnea on observation HEART: Pulse RRR ABDOMEN: soft EXTREMITIES: LLEXT-total disarticulation, RLEXT cellulitis ID ASSESSMENT 50 yo F admit with: 1. Right foot cellulitis with gangrene. 2. Peripheral vascular disease=> S/P RLE angiogram that demonstrated infrainguinal disease. 3. Hypertension. 4. 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 5. C dif colitis (-) MRSA Nares SEP 2016 INVASIVES: PIV ABX ALLERGY: KNDA CURRENT ABX: CURRENT ABX=> Doxy #2 + Flagyl s/p Vanco IV + Ceftriaxone ID RECOMMENDATIONS 1. Continue current ABX => ABX downgraded due to C.Diff * Observe over the weekend on ABX -> Reassess by ID team next week 2. Pending vascular intervention - next week if C.Diff controlled . Problems: Consultation Date/Type/Reason Admit Date/Time Oct 14, 2016 at 16:41 Initial Consult Date Type of Consultation: id Referring Provider: JOAQUINA MCEKON MD Exam/Review of Systems Vital Signs Vitals Vital Signs Date Time Temp Pulse Resp B/P Pulse Ox O2 Delivery O2 Flow Rate FiO2 10/24/16 07:41 98.7 68 18 133/64 96 10/23/16 20:00 Room Air Intake and Output 10/23/16 10/23/16 10/24/16 15:00 23:00 07:00 Intake Total 250 ml 2280 ml 360 ml Output Total 1600 ml 1000 ml Balance 250 ml 680 ml -640 ml Results Result Diagram: 10/23/16 0509 10/23/16 0509 Results 24 hrs Laboratory Tests Test 10/23/16 17:03 10/23/16 22:27 10/24/16 02:16 10/24/16 07:50 Bedside Glucose 125 205 131 97 Test 10/24/16 11:53 Bedside Glucose 136 Medications Medications Current Medications Aspirin (Aspirin) 81 mg DAILY PO Last administered on 10/24/16 08:26; Admin Dose 81 MG; Start 10/14/16 at 09:00 Gabapentin (Neurontin) 300 mg TID PO Last administered on 10/24/16 13:09; Admin Dose 300 MG; Start 10/13/16 at 21:00 Insulin Glargine (Lantus) 5 unit HS SC Last administered on 10/23/16 22:35; Admin Dose 5 UNIT; Start 10/13/16 at 21:00 Atorvastatin Calcium (Lipitor) 10 mg HS PO Last administered on 10/23/16 22:29 ; Admin Dose 10 MG; Start 10/13/16 at 21:00 Ondansetron HCl (Zofran Inj) 4 mg Q6H PRN IV NAUSEA AND/OR VOMITING Last administered on 10/23/16 05:39; Admin Dose 4 MG; Start 10/13/16 at 15:30 Acetaminophen (Tylenol Tab) 650 mg Q6H PRN PO PAIN LEVEL 1-3 OR FEVER Last administered on 10/22/16 09:48; Admin Dose 650 MG; Start 10/13/16 at 15:30 Acetaminophen (Tylenol Supp) 650 mg Q6H PRN [place] PAIN LEVEL 1-3 OR FEVER; Start 10/13/16 at 15:30 Docusate Sodium (Colace) 100 mg Q12H PRN PO CONSTIPATION; Start 10/13/16 at 15: 30 Bisacodyl (Dulcolax) 5 mg DAILY PRN PO CONSTIPATION; Start 10/13/16 at 15:30 Pantoprazole (Protonix Tab) 40 mg DAILY@06 PO Last administered on 10/24/16 06 :11; Admin Dose 40 MG; Start 10/14/16 at 06:00 Diphenhydramine HCl (Benadryl) 25 mg Q6H PRN PO ITCHING; Start 10/13/16 at 15: 30 Miscellaneous Information 1 ea NOTE XX ; Start 10/13/16 at 16:00 Glucose (Glutose) 15 gm Q15M PRN PO DECREASED GLUCOSE; Start 10/13/16 at 16:00 Glucose (Glutose) 22.5 gm Q15M PRN PO DECREASED GLUCOSE; Start 10/13/16 at 16: 00 Dextrose (D50w Syringe) 25 ml Q15M PRN IV DECREASED GLUCOSE; Start 10/13/16 at 16:00 Dextrose (D50w Syringe) 50 ml Q15M PRN IV DECREASED GLUCOSE; Start 10/13/16 at 16:00 Glucagon (Glucagen) 1 mg Q15M PRN IM DECREASED GLUCOSE; Start 10/13/16 at 16:00 Glucose (Glutose) 15 gm Q15M PRN BUCCAL DECREASED GLUCOSE; Start 10/13/16 at 16 :00 Heparin Sodium (Porcine) (Heparin (5000 Units/0.5 ml)) 5,000 unit BID SC Last administered on 10/24/16 08:39; Admin Dose 5,000 UNIT; Start 10/13/16 at 21:00 Hydralazine HCl (Apresoline) 10 mg Q6H PRN IV SBP >160 Last administered on 19:57; Admin Dose 10 MG; Start 10/13/16 at 20:00 Lisinopril (Zestril) 5 mg DAILY PO Last administered on 10/24/16 08:27; Admin Dose 5 MG; Start 10/17/16 at 09:00 Metronidazole (Flagyl) 500 mg Q8 PO Last administered on 10/24/16 13:09; Admin Dose 500 MG; Start 10/18/16 at 09:30 Oxycodone/ Acetaminophen (Percocet (5/ 325)) 2 tab Q4H PRN PO MODERATE PAIN LEVEL 4-6 Last administered on 10/23/16 22:28; Admin Dose 2 TAB; Start at 01:00 Doxycycline Hyclate (Vibramycin) 100 mg BID PO Last administered on 10/24/16 08:26; Admin Dose 100 MG; Start 10/24/16 at 09:00 MICHELLE SOLORZANO NP Oct 24, 2016 16:47
[2016-10-24 19:00] VITALS: BP 137/65; RESP 18
[2016-10-24] MEDS: ATORVASTATIN 10 MG TAB PO SCH (20:32)
[2016-10-24] MEDS: OXYCODONE/ACETAMINOPHEN (5/325) TAB PO PRN (20:59)
[2016-10-24] MEDS: INSULIN GLARGINE [LANtus] 3 ML PEN SC SCH (21:11)
[2016-10-25] MEDS: PANTOPRAZOLE (EC) 40 MG TAB PO SCH (05:59)
[2016-10-25] MEDS: metroNIDAZOLE 500 MG TAB PO SCH ×3 (05:59→21:35)
[2016-10-25 07:34] VITALS: BP 143/66; RESP 16
[2016-10-25] MEDS: ASPIRIN 81 MG TAB PO SCH (08:17)
[2016-10-25] MEDS: GABAPENTIN 300 MG CAP PO SCH ×3 (08:17→20:11)
[2016-10-25] MEDS: LISINOPRIL 5 MG TAB PO SCH (08:18)
[2016-10-25] MEDS: DOXYCYCLINE 100 MG TAB PO SCH ×2 (08:18→20:11)
[2016-10-25] MEDS: HEPARIN 5,000 UNIT/0.5 ML SYG SC SCH ×2 (08:29→20:16)
[2016-10-25] MEDS: INSULIN ASPART [NOVOLOG] 3 ML PEN SC SCH ×4 (08:30→20:12)
--- NOTE | 2016-10-25 14:07 | PN ---
DATE: 10/25/2016 FOLLOWUP CARDIOLOGY NOTE SUBJECTIVE: On questioning, patient denies any complaints of chest pain. No shortness of breath or palpitations. OBJECTIVE VITAL SIGNS: Blood pressure 143/66. She is afebrile. Heart rate was 63. NECK: JVP not raised. Carotid pulses with normal upstrokes. CHEST: Bilaterally symmetrical. HEART: S1, S2 are regular with a I/ systolic murmur. LUNGS: Clear to percussion and auscultation. ABDOMEN: Soft, nontender belly without any organomegaly. Bowel sounds are present. EXTREMITIES: Reveals good femoral pulses and dressing on the right foot. LABORATORY AND DIAGNOSTIC DATA: There are no imaging studies today or any labs today, except for th e sugar is elevated to 196. IMPRESSION: 1. Abnormal electrocardiogram. 2. Peripheral vascular disease. 3. History of dyslipidemia. 4. Hypertension, which is fairly well controlled at this stage. RECOMMENDATIONS: Continue same treatment at this stage from a cardiac standpoint. Dictated By: VALE DICKINSON MD, RA/TRACE Conf#: [id number] DID#: [id number]
--- NOTE | 2016-10-25 16:21 | PN ---
Date/Time of Note Date/Time of Note DATE: 10/25/16 TIME: 16:19 Assessment/Plan VTE Prophylaxis VTE Prophylaxis Intervention: heparin Lines/Catheters IV Catheter Type (from Nrs): PICC Line Central line still needed: Yes (IV abx for long time ) Assessment/Plan Assessment/Plan 1. Right foot cellulitis with gangrene.s/p LE angiogram showed moderate obstructive PAD - 2. Peripheral vascular disease. 3. Hypertension. 4. 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 5. Diabetic neuropathy 6. anemia of chronic Disease Plan: Continue current care Bp stable S/P RLE angiogram that demonstrated infrainguinal disease.- as per vascular surgery and podiatry plan - possible vascular intervention next week IV abx, ID following heparin for DVT prophylaxis Subjective 24 Hr Interval Summary Free Text/Dictation no acute events, Podiatry not plannign any intervention, Vascular surgery planning intervention next week Exam/Review of Systems Vital Signs Vitals Vital Signs Date Time Temp Pulse Resp B/P Pulse Ox O2 Delivery O2 Flow Rate FiO2 10/25/16 07:34 98.1 63 16 143/66 97 10/23/16 20:00 Room Air Intake and Output 10/24/16 10/24/16 10/25/16 15:00 23:00 07:00 Intake Total 960 ml 480 ml Output Total 1000 ml Balance -40 ml 480 ml Exam HEENT: Pupils are equal and reactive to light. Anicteric sclerae. NECK: Supple, no JVD noted, no cervical adenopathy, no carotid bruits heard. LUNGS: Fair breath sounds bilaterally. CARDIOVASCULAR: S1, S2 normal. ABDOMEN: Soft, nontender. No organomegaly or masses noted. EXTREMITIES: Right foot fourth and fifth toe gangrenous changes status post left lower extremity AKA. No edema or cyanosis noted. NEUROLOGICAL: Awake. Results Result Diagram: 10/23/16 0509 10/23/16 0509 Results 24 hrs Laboratory Tests Test 10/24/16 17:12 10/24/16 20:49 10/25/16 01:29 10/25/16 07:55 Bedside Glucose 150 264 H 196 169 Test 10/25/16 11:56 Bedside Glucose 351 H Medications Medications Current Medications Aspirin (Aspirin) 81 mg DAILY PO Last administered on 10/25/16t 08:17; Admin Dose 81 MG; Start 10/14/16 at 09:00 Gabapentin (Neurontin) 300 mg TID PO Last administered on 10/25/16 13:17; Admin Dose 300 MG; Start 10/13/16 at 21:00 Insulin Glargine (Lantus) 5 unit HS SC Last administered on 10/24/16 21:11; Admin Dose 5 UNIT; Start 10/13/16 at 21:00 Atorvastatin Calcium (Lipitor) 10 mg HS PO Last administered on 10/24/16 20:32 ; Admin Dose 10 MG; Start 10/13/16 at 21:00 Ondansetron HCl (Zofran Inj) 4 mg Q6H PRN IV NAUSEA AND/OR VOMITING Last administered on 10/23/16 05:39; Admin Dose 4 MG; Start 10/13/16 at 15:30 Acetaminophen (Tylenol Tab) 650 mg Q6H PRN PO PAIN LEVEL 1-3 OR FEVER Last administered on 10/22/16 09:48; Admin Dose 650 MG; Start 10/13/16 at 15:30 Acetaminophen (Tylenol Supp) 650 mg Q6H PRN [place] PAIN LEVEL 1-3 OR FEVER; Start 10/13/16 at 15:30 Docusate Sodium (Colace) 100 mg Q12H PRN PO CONSTIPATION; Start 10/13/16 at 15: 30 Bisacodyl (Dulcolax) 5 mg DAILY PRN PO CONSTIPATION; Start 10/13/16 at 15:30 Pantoprazole (Protonix Tab) 40 mg DAILY@06 PO Last administered on 10/25/16 05 :59; Admin Dose 40 MG; Start 10/14/16 at 06:00 Diphenhydramine HCl (Benadryl) 25 mg Q6H PRN PO ITCHING; Start 10/13/16 at 15: 30 Miscellaneous Information 1 ea NOTE XX ; Start 10/13/16 at 16:00 Glucose (Glutose) 15 gm Q15M PRN PO DECREASED GLUCOSE; Start 10/13/16 at 16:00 Glucose (Glutose) 22.5 gm Q15M PRN PO DECREASED GLUCOSE; Start 10/13/16 at 16: 00 Dextrose (D50w Syringe) 25 ml Q15M PRN IV DECREASED GLUCOSE; Start 10/13/16 at 16:00 Dextrose (D50w Syringe) 50 ml Q15M PRN IV DECREASED GLUCOSE; Start 10/13/16 at 16:00 Glucagon (Glucagen) 1 mg Q15M PRN IM DECREASED GLUCOSE; Start 10/13/16 at 16:00 Glucose (Glutose) 15 gm Q15M PRN BUCCAL DECREASED GLUCOSE; Start 10/13/16 at 16 :00 Heparin Sodium (Porcine) (Heparin (5000 Units/0.5 ml)) 5,000 unit BID SC Last administered on 10/25/16 08:29; Admin Dose 5,000 UNIT; Start 10/13/16 at 21:00 Hydralazine HCl (Apresoline) 10 mg Q6H PRN IV SBP >160 Last administered on 19:57; Admin Dose 10 MG; Start 10/13/16 at 20:00 Lisinopril (Zestril) 5 mg DAILY PO Last administered on 10/25/16 08:18; Admin Dose 5 MG; Start 10/17/16 at 09:00 Metronidazole (Flagyl) 500 mg Q8 PO Last administered on 10/25/16 13:16; Admin Dose 500 MG; Start 10/18/16 at 09:30 Oxycodone/ Acetaminophen (Percocet (5/ 325)) 2 tab Q4H PRN PO MODERATE PAIN LEVEL 4-6 Last administered on 10/24/16 20:59; Admin Dose 2 TAB; Start at 01:00 Doxycycline Hyclate (Vibramycin) 100 mg BID PO Last administered on 10/25/16 08:18; Admin Dose 100 MG; Start 10/24/16 at 09:00 ALYSSA VENCES MD Oct 25, 2016 16:21
--- NOTE | 2016-10-25 18:11 | PN ---
Date/Time of Note Date/Time of Note DATE: 10/25/16 TIME: 18:08 Assessment/Plan Lines/Catheters IV C[facility]ter Type (from [facility]): PICC Line Assessment/Plan Chief Complaint/Hosp Course -Bilateral lower extremity atherosclerosis with gangrene: S/P RLE angiogram that demonstrated infrainguinal disease. The patient does have in line flow to the foot and her gangrene has become dry and not progressed. in light of her CDiff active infection will await for that to resolve and recommend debridement per podiatry recommendations. Otherwise Will follow wound very closely and schedule for Endovascular intervention in an Antegrade fashion when infection seems to have been resolved and cleared by ID -The patient has developed a right lower extremity gangrene in which it is a very complicated situation as the patient has had a left hip disarticulation and providing her with vascular interventions is limited. Upon our extensive discussion with the patient she has been very emotional and has asked for everything that can be done to preserve her right lower extremity. Patient is quite dependent per her family and herself to about 80% with her right lower extremity in terms of being able to transfer and her mobility at home. We have provided her offer of conservative therapy for the wound care and eventual amputation if she has an infection that is threatening her life. We have mentioned that if she develops rest pain that it is intolerable and then an amputation at that point. I have spoken with the family that she may require a revascularization and they have requested to have everything done, no matter the risks entailed. -Optimize vascular status (BP meds, diet, nutrition, exercise, sugar control, antiplatelets). 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 -Thank you for allowing us to partake in the care of your patient. Please call with any questions. Problems: Subjective 24 Hr Interval Summary no new vascular events overnight Exam/Review of Systems Vital Signs Vitals Vital Signs Date Time Temp Pulse Resp B/P Pulse Ox O2 Delivery O2 Flow Rate FiO2 10/25/16 07:34 98.1 63 16 143/66 97 10/23/16 20:00 Room Air Intake and Output 10/24/16 10/24/16 10/25/16 15:00 23:00 07:00 Intake Total 960 ml 480 ml Output Total 1000 ml Balance -40 ml 480 ml Exam Free Text/Dictation GENERAL: Alert and oriented x3, PULMONARY: Clear to auscultation bilaterally. CARDIOVASCULAR: S1, S2 present. ABDOMEN: Soft, nontender, nondistended. Bowel sounds positive. Midline incision with surgical scar that is well healed. Bowel sounds positive. EXTREMITIES: Left lower extremity: left hip disarticulation surgical scar, mid aspect of the wound with granulation tissue, good epithelization Some Skin excoriation. Right lower extremity: Palpable femoral pulse, seems to be a bit faint. Nonpalpable pedal pulse. Motor and sensory intact. Capillary refill 4 seconds. Dependent rubor of the foot. Gangrene of the fourth, fifth toe - dry with some demarcation, partial thrid Results Result Diagram: 10/23/16 0509 10/23/16 0509 JOAQUINA MCKEON MD Oct 25, 2016 18:11
[2016-10-25 19:41] VITALS: BP 124/57; RESP 20
--- NOTE | 2016-10-25 19:57 | CONS ---
Date/Time of Note Date/Time of Note DATE: 10/25/16 TIME: 19:54 Assessment/Plan Assessment/Plan Chief Complaint/Hosp Course ID PROGRESS NOTE CURRENT ABX=> Doxy #3 + Flagyl s/p Vanco IV + Ceftriaxone 24H INTERVAL SUMMARY * Clinically stable -- waiting for C.Diff diarrhea to resolved prior to vascular interventions. * 2BMs recorded today * No new issues, no c/o, doing OK, VSS, no fevers * S/P RLE angiogram that demonstrated infrainguinal disease * Per notes: Gangrene is dry and not progressing PHYSICAL EXAMINATION: GENERAL:VSS, NAD HEENT: Unremarkable NECK: Supple, trachea midline. CHEST: Rise symmetrical, without dyspnea on observation HEART: Pulse RRR ABDOMEN: soft EXTREMITIES: LLEXT-total disarticulation, RLEXT cellulitis ID ASSESSMENT 50 yo F admit with: 1. Right foot cellulitis with gangrene. 2. Peripheral vascular disease=> S/P RLE angiogram that demonstrated infrainguinal disease. 3. Hypertension. 4. 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 5. C dif colitis (-) MRSA Nares SEP 2016 INVASIVES: PIV ABX ALLERGY: KNDA CURRENT ABX: CURRENT ABX=> Doxy #2 + Flagyl s/p Vanco IV + Ceftriaxone ID RECOMMENDATIONS 1. Continue current ABX => ABX downgraded due to C.Diff * Observe over the weekend on ABX -> Reassess by ID team next week ? if diarrhea persists perhaps double cover w/Vanco PO? 2. Pending vascular intervention - next week if C.Diff controlled . Problems: Consultation Date/Type/Reason Admit Date/Time Oct 14, 2016 at 16:41 Type of Consultation: id Referring Provider: JOAQUINA MCKEON MD Exam/Review of Systems Vital Signs Vitals Vital Signs Date Time Temp Pulse Resp B/P Pulse Ox O2 Delivery O2 Flow Rate FiO2 10/25/16 19:41 98.4 71 20 124/57 98 10/23/16 20:00 Room Air Intake and Output 10/24/16 10/24/16 10/25/16 15:00 23:00 07:00 Intake Total 960 ml 480 ml Output Total 1000 ml Balance -40 ml 480 ml Results Result Diagram: 10/23/16 0509 10/23/16 0509 Results 24 hrs Laboratory Tests Test 10/24/16 20:49 10/25/16 01:29 10/25/16 07:55 10/25/16 11:56 Bedside Glucose 264 H 196 169 351 H Test 10/25/16 17:38 Bedside Glucose 183 Medications Medications Current Medications Aspirin (Aspirin) 81 mg DAILY PO Last administered on 10/25/16 08:17; Admin Dose 81 MG; Start 10/14/16 at 09:00 Gabapentin (Neurontin) 300 mg TID PO Last administered on 10/25/16 13:17; Admin Dose 300 MG; Start 10/13/16 at 21:00 Insulin Glargine (Lantus) 5 unit HS SC Last administered on 10/24/16 21:11; Admin Dose 5 UNIT; Start 10/13/16 at 21:00 Atorvastatin Calcium (Lipitor) 10 mg HS PO Last administered on 10/24/16 20:32 ; Admin Dose 10 MG; Start 10/13/16 at 21:00 Ondansetron HCl (Zofran Inj) 4 mg Q6H PRN IV NAUSEA AND/OR VOMITING Last administered on 10/23/16 05:39; Admin Dose 4 MG; Start 10/13/16 at 15:30 Acetaminophen (Tylenol Tab) 650 mg Q6H PRN PO PAIN LEVEL 1-3 OR FEVER Last administered on 10/22/16 09:48; Admin Dose 650 MG; Start 10/13/16 at 15:30 Acetaminophen (Tylenol Supp) 650 mg Q6H PRN [place] PAIN LEVEL 1-3 OR FEVER; Start 10/13/16 at 15:30 Docusate Sodium (Colace) 100 mg Q12H PRN PO CONSTIPATION; Start 10/13/16 at 15: 30 Bisacodyl (Dulcolax) 5 mg DAILY PRN PO CONSTIPATION; Start 10/13/16 at 15:30 Pantoprazole (Protonix Tab) 40 mg DAILY@06 PO Last administered on 10/25/16 05 :59; Admin Dose 40 MG; Start 10/14/16 at 06:00 Diphenhydramine HCl (Benadryl) 25 mg Q6H PRN PO ITCHING; Start 10/13/16 at 15: 30 Miscellaneous Information 1 ea NOTE XX ; Start 10/13/16 at 16:00 Glucose (Glutose) 15 gm Q15M PRN PO DECREASED GLUCOSE; Start 10/13/16 at 16:00 Glucose (Glutose) 22.5 gm Q15M PRN PO DECREASED GLUCOSE; Start 10/13/16 at 16: 00 Dextrose (D50w Syringe) 25 ml Q15M PRN IV DECREASED GLUCOSE; Start 10/13/16 at 16:00 Dextrose (D50w Syringe) 50 ml Q15M PRN IV DECREASED GLUCOSE; Start 10/13/16 at 16:00 Glucagon (Glucagen) 1 mg Q15M PRN IM DECREASED GLUCOSE; Start 10/13/16 at 16:00 Glucose (Glutose) 15 gm Q15M PRN BUCCAL DECREASED GLUCOSE; Start 10/13/16 at 16 :00 Heparin Sodium (Porcine) (Heparin (5000 Units/0.5 ml)) 5,000 unit BID SC Last administered on 10/25/16 08:29; Admin Dose 5,000 UNIT; Start 10/13/16 at 21:00 Hydralazine HCl (Apresoline) 10 mg Q6H PRN IV SBP >160 Last administered on 19:57; Admin Dose 10 MG; Start 10/13/16 at 20:00 Lisinopril (Zestril) 5 mg DAILY PO Last administered on 10/25/16 08:18; Admin Dose 5 MG; Start 10/17/16 at 09:00 Metronidazole (Flagyl) 500 mg Q8 PO Last administered on 10/25/16 13:16; Admin Dose 500 MG; Start 10/18/16 at 09:30 Oxycodone/ Acetaminophen (Percocet (5/ 325)) 2 tab Q4H PRN PO MODERATE PAIN LEVEL 4-6 Last administered on 10/24/16 20:59; Admin Dose 2 TAB; Start at 01:00 Doxycycline Hyclate (Vibramycin) 100 mg BID PO Last administered on 10/25/16 08:18; Admin Dose 100 MG; Start 10/24/16 at 09:00 MICHELLE SOLORZANO NP Oct 25, 2016 19:56
[2016-10-25] MEDS: ATORVASTATIN 10 MG TAB PO SCH (20:11)
[2016-10-25] MEDS: INSULIN GLARGINE [LANtus] 3 ML PEN SC SCH (20:17)
[2016-10-25] MEDS: OXYCODONE/ACETAMINOPHEN (5/325) TAB PO PRN (20:20)
[2016-10-26] MEDS: metroNIDAZOLE 500 MG TAB PO SCH ×3 (05:33→21:15)
[2016-10-26] MEDS: PANTOPRAZOLE (EC) 40 MG TAB PO SCH (05:33)
[2016-10-26 05:38] LABS: ADD SCAN DIFF NO
[2016-10-26 05:49] LABS: BASOPHILS % 0.3 % (0.0-2.0); EOSINOPHILS # 0.3 10^3/ul (0.0-0.5); EOSINOPHILS % 4.5 % (0.0-7.0); HEMATOCRIT 30.9 % (37.0-47.0); LYMPHOCYTES # 1.8 10^3/ul (0.8-2.9); LYMPHOCYTES % 29.6 % (15.0-51.0); MEAN CORPUSCULAR HEMOGLOBIN 30.1 pg (29.0-33.0); MEAN CORPUSCULAR HGB CONC 32.4 g/dl (32.0-37.0); MEAN CORPUSCULAR VOLUME 93.1 fl (82.0-101.0); MONOCYTE # 0.6 10^3/ul (0.3-0.9); MONOCYTES % 9.6 % (0.0-11.0); NEUTROPHIL # 3.3 10^3/ul (1.6-7.5); PLATELET COUNT 344 10^3/UL (140-415); RED BLOOD COUNT 3.32 10^6/ul (4.20-5.40); RED CELL DISTRIBUTION WIDTH 15.1 % (11.5-14.5)
[2016-10-26 06:14] LABS: INR 1.16; PROTIME 14.8 Sec (12.2-14.2); PT RATIO 1.2
[2016-10-26 06:15] LABS: PARTIAL THROMBOPLASTIN TIME 36.2 Sec (25.0-35.0)
[2016-10-26 06:21] LABS: ALBUMIN 3.4 g/dl (3.3-4.9)
[2016-10-26 06:22] LABS: POTASSIUM 3.9 mmol/L (3.5-5.1)
[2016-10-26 06:24] LABS: CREATININE 0.44 mg/dl (0.44-1.00)
[2016-10-26 06:25] LABS: ALBUMIN/GLOBULIN RATIO 1.06; CALCIUM 8.7 mg/dl (8.4-10.2); TOTAL PROTEIN 6.6 g/dl (6.1-8.1)
[2016-10-26 07:38] VITALS: BP 138/62; RESP 18
[2016-10-26] MEDS: INSULIN ASPART [NOVOLOG] 3 ML PEN SC SCH ×4 (08:05→20:29)
[2016-10-26] MEDS: LISINOPRIL 5 MG TAB PO SCH (08:40)
[2016-10-26] MEDS: GABAPENTIN 300 MG CAP PO SCH ×3 (08:40→21:15)
[2016-10-26] MEDS: DOXYCYCLINE 100 MG TAB PO SCH ×2 (08:40→21:15)
[2016-10-26] MEDS: ASPIRIN 81 MG TAB PO SCH (08:40)
[2016-10-26] MEDS: HEPARIN 5,000 UNIT/0.5 ML SYG SC SCH ×2 (08:43→22:42)
--- NOTE | 2016-10-26 09:28 | PN ---
Date/Time of Note Date/Time of Note DATE: 10/26/16 TIME: 09:19 Assessment/Plan VTE Prophylaxis VTE Prophylaxis Intervention: heparin Lines/Catheters IV Catheter Type (from Nrs): PICC Line Central line still needed: Yes Assessment/Plan Chief Complaint/Hosp Course Assessment/Plan: 50 F with: 1. Right foot cellulitis with gangrene - s/p RLE angiogram showed moderate obstructive PAD (infrainguinal disease) - per vascular surgery and podiatry plan - possible vascular intervention after infx (cdiff) resolved - optimize vascular status (BP meds, diet, nutrition, exercise, sugar control, antiplatelets) - continue abx per ID, f/u rec's. 2. Peripheral vascular disease - see # 1 3. Hypertension - bp stable - continue MILAGRO (-) 4. 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 Diabetic neuropathy - has Hx of DM-2 as well - FS stable presently - continue ISS and Lantus 6. anemia of chronic Disease - H/H stable - monitor for now 7. C Diff - positive - continue Flagyl for now. f/u ID rec's 8. GI ppx - PPI 9. heparin for DVT prophylaxis Problems: Subjective 24 Hr Interval Summary Free Text/Dictation Pt crying this AM (worried about her LE), but denies diarrhea. Exam/Review of Systems Vital Signs Vitals Vital Signs Date Time Temp Pulse Resp B/P Pulse Ox O2 Delivery O2 Flow Rate FiO2 10/26/16 07:38 98.3 71 18 138/62 98 10/23/16 20:00 Room Air Intake and Output 10/25/16 10/25/16 10/26/16 15:00 23:00 07:00 Intake Total 1020 ml 240 ml Output Total 1000 ml Balance 20 ml 240 ml Exam HEENT: Pupils are equal and reactive to light. Anicteric sclerae. NECK: Supple, no JVD noted, no cervical adenopathy, no carotid bruits heard. LUNGS: Fair breath sounds bilaterally. CARDIOVASCULAR: S1, S2 normal. ABDOMEN: Soft, nontender. No organomegaly or masses noted. EXTREMITIES: Right foot fourth and fifth toe gangrenous changes status post left lower extremity AKA. No edema or cyanosis noted. NEUROLOGICAL: Awake. Results Result Diagram: 10/26/16 0500 10/26/16 0500 Results 24 hrs Laboratory Tests Test 10/25/16 11:56 10/25/16 17:38 10/26/16 05:00 10/26/16 07:59 Bedside Glucose 351 H 183 135 White Blood Count 6.0 Red Blood Count 3.32 L Hemoglobin 10.0 L Hematocrit 30.9 L Mean Corpuscular Volume 93.1 Mean Corpuscular Hemoglobin 30.1 Mean Corpuscular Hemoglobin Concent 32.4 Red Cell Distribution Width 15.1 H Platelet Count 344 Mean Platelet Volume 10.0 Neutrophils % 55.0 Lymphocytes % 29.6 Monocytes % 9.6 Eosinophils % 4.5 Basophils % 0.3 Nucleated Red Blood Cells % 0.0 Neutrophils # 3.3 Lymphocytes # 1.8 Monocytes # 0.6 Eosinophils # 0.3 Basophils # 0.0 Nucleated Red Blood Cells # 0.0 Prothrombin Time 14.8 H Prothrombin Time Ratio 1.2 INR International Normalized Ratio 1.16 Activated Partial Thromboplast Time 36.2 H Sodium Level 137 Potassium Level 3.9 Chloride Level 102 Carbon Dioxide Level 29 Anion Gap 10 Blood Urea Nitrogen 13 Creatinine 0.44 Glucose Level 158 Calcium Level 8.7 Total Bilirubin 0.0 L Direct Bilirubin 0.00 Indirect Bilirubin 0.0 Aspartate Amino Transf (AST/SGOT) 20 Alanine Aminotransferase (ALT/SGPT) 23 Alkaline Phosphatase 80 Total Protein 6.6 Albumin 3.4 Globulin 3.20 Albumin/Globulin Ratio 1.06 Medications Medications Current Medications Aspirin (Aspirin) 81 mg DAILY PO Last administered on 10/26/16 08:40; Admin Dose 81 MG; Start 10/14/16 at 09:00 Gabapentin (Neurontin) 300 mg TID PO Last administered on 10/26/16 08:40; Admin Dose 300 MG; Start 10/13/16 at 21:00 Insulin Glargine (Lantus) 5 unit HS SC Last administered on 10/25/16 20:17; Admin Dose 5 UNIT; Start 10/13/16 at 21:00 Atorvastatin Calcium (Lipitor) 10 mg HS PO Last administered on 10/25/16 20:11 ; Admin Dose 10 MG; Start 10/13/16 at 21:00 Ondansetron HCl (Zofran Inj) 4 mg Q6H PRN IV NAUSEA AND/OR VOMITING Last administered on 10/23/16 05:39; Admin Dose 4 MG; Start 10/13/16 at 15:30 Acetaminophen (Tylenol Tab) 650 mg Q6H PRN PO PAIN LEVEL 1-3 OR FEVER Last administered on 10/22/16 09:48; Admin Dose 650 MG; Start 10/13/16 at 15:30 Acetaminophen (Tylenol Supp) 650 mg Q6H PRN [place] PAIN LEVEL 1-3 OR FEVER; Start 10/13/16 at 15:30 Docusate Sodium (Colace) 100 mg Q12H PRN PO CONSTIPATION; Start 10/13/16 at 15: 30 Bisacodyl (Dulcolax) 5 mg DAILY PRN PO CONSTIPATION; Start 10/13/16 at 15:30 Pantoprazole (Protonix Tab) 40 mg DAILY@06 PO Last administered on 10/26/16 05 :33; Admin Dose 40 MG; Start 10/14/16 at 06:00 Diphenhydramine HCl (Benadryl) 25 mg Q6H PRN PO ITCHING; Start 10/13/16 at 15: 30 Miscellaneous Information 1 ea NOTE XX ; Start 10/13/16 at 16:00 Glucose (Glutose) 15 gm Q15M PRN PO DECREASED GLUCOSE; Start 10/13/16 at 16:00 Glucose (Glutose) 22.5 gm Q15M PRN PO DECREASED GLUCOSE; Start 10/13/16 at 16: 00 Dextrose (D50w Syringe) 25 ml Q15M PRN IV DECREASED GLUCOSE; Start 10/13/16 at 16:00 Dextrose (D50w Syringe) 50 ml Q15M PRN IV DECREASED GLUCOSE; Start 10/13/16 at 16:00 Glucagon (Glucagen) 1 mg Q15M PRN IM DECREASED GLUCOSE; Start 10/13/16 at 16:00 Glucose (Glutose) 15 gm Q15M PRN BUCCAL DECREASED GLUCOSE; Start 10/13/16 at 16 :00 Heparin Sodium (Porcine) (Heparin (5000 Units/0.5 ml)) 5,000 unit BID SC Last administered on 10/26/16 08:43; Admin Dose 5,000 UNIT; Start 10/13/16 at 21:00 Hydralazine HCl (Apresoline) 10 mg Q6H PRN IV SBP >160 Last administered on 19:57; Admin Dose 10 MG; Start 10/13/16 at 20:00 Lisinopril (Zestril) 5 mg DAILY PO Last administered on 10/26/16 08:40; Admin Dose 5 MG; Start 10/17/16 at 09:00 Metronidazole (Flagyl) 500 mg Q8 PO Last administered on 10/26/16 05:33; Admin Dose 500 MG; Start 10/18/16 at 09:30 Oxycodone/ Acetaminophen (Percocet (5/ 325)) 2 tab Q4H PRN PO MODERATE PAIN LEVEL 4-6 Last administered on 10/25/16 20:20; Admin Dose 2 TAB; Start at 01:00 Doxycycline Hyclate (Vibramycin) 100 mg BID PO Last administered on 10/26/16 08:40; Admin Dose 100 MG; Start 10/24/16 at 09:00 KELLEY BEVERLY Oct 26, 2016 09:27
--- NOTE | 2016-10-26 11:28 | CONS ---
Date/Time of Note Date/Time of Note DATE: 10/26/16 TIME: 11:26 Assessment/Plan Assessment/Plan Chief Complaint/Hosp Course IMPRESSION: 1. Preoperative evaluation prior to possible lower extremity revascularization. - No ischemia by lexiscan and NL EF by echo with no sig valve abnl. Thus ok to proceed with surgery at relatively low to moderate risk on current medications without further noninvasive evaluation. Now post-op s/p LE angio 2. Abnormal electrocardiogram with T-wave flattening isolated to the aVL.- negative troponin x 3 3. Hypertension with currently borderline hypotension today. 4. History of dyslipidemia. 5. Diabetes mellitus. 6. Peripheral arterial disease with right lower extremity gangrenous changes. 7. Status post left [id number] amputation. 8. Anemia. 9. C dif positive Recc: -Tele -Continue asa -Continue statin -Continue ACEI and follow BP closely -local wound care -Continue flagyl/abx's -pnding further vascular/podiatric procedures when c. diff infection improved -Ongoing vascular/podiatry eval and treatment Problems: Consultation Date/Type/Reason Admit Date/Time Oct 14, 2016 at 16:41 Initial Consult Date 10/14/2016 Type of Consultation: Cardiology Reason for Consultation pre-op Referring Provider: JOAQUINA MCKEON MD Exam/Review of Systems Vital Signs Vitals Vital Signs Date Time Temp Pulse Resp B/P Pulse Ox O2 Delivery O2 Flow Rate FiO2 10/26/16 07:38 98.3 71 18 138/62 98 10/23/16 20:00 Room Air Intake and Output 10/25/16 10/25/16 10/26/16 15:00 23:00 07:00 Intake Total 1020 ml 240 ml Output Total 1000 ml Balance 20 ml 240 ml Exam Review of Systems: CONSTITUTIONAL: No fevers, chills. PULMONARY: No sob CARDIOVASCULAR: No chest pain/palpitations GASTROINTESTINAL: loose stools GENITOURINARY: No hematuria/dysuria. MUSCULOSKELETAL: Leg pain. PSYCHIATRIC: The patient denies depression. NEUROLOGIC: No weakness Constitutional: alert, oriented Psych: no complaints Head: normocephalic ENMT: mucosa pink and moist Neck: jvd (9 cm water), supple Respiratory: diminished breath sounds (at bases/B) Cardiovascular: regular rate and rhythm Gastrointestinal: non-tender, soft Musculoskeletal: muscle tone (normal) Extremities: other (covered by dressing with gangrenous changes of foot) Results Result Diagram: 10/26/16 0500 10/26/16 0500 Results 24 hrs Laboratory Tests Test 10/25/16 11:56 10/25/16 17:38 10/25/16 20:10 10/26/16 05:00 Bedside Glucose 351 H 183 169 White Blood Count 6.0 Red Blood Count 3.32 L Hemoglobin 10.0 L Hematocrit 30.9 L Mean Corpuscular Volume 93.1 Mean Corpuscular Hemoglobin 30.1 Mean Corpuscular Hemoglobin Concent 32.4 Red Cell Distribution Width 15.1 H Platelet Count 344 Mean Platelet Volume 10.0 Neutrophils % 55.0 Lymphocytes % 29.6 Monocytes % 9.6 Eosinophils % 4.5 Basophils % 0.3 Nucleated Red Blood Cells % 0.0 Neutrophils # 3.3 Lymphocytes # 1.8 Monocytes # 0.6 Eosinophils # 0.3 Basophils # 0.0 Nucleated Red Blood Cells # 0.0 Prothrombin Time 14.8 H Prothrombin Time Ratio 1.2 INR International Normalized Ratio 1.16 Activated Partial Thromboplast Time 36.2 H Sodium Level 137 Potassium Level 3.9 Chloride Level 102 Carbon Dioxide Level 29 Anion Gap 10 Blood Urea Nitrogen 13 Creatinine 0.44 Glucose Level 158 Calcium Level 8.7 Total Bilirubin 0.0 L Direct Bilirubin 0.00 Indirect Bilirubin 0.0 Aspartate Amino Transf (AST/SGOT) 20 Alanine Aminotransferase (ALT/SGPT) 23 Alkaline Phosphatase 80 Total Protein 6.6 Albumin 3.4 Globulin 3.20 Albumin/Globulin Ratio 1.06 Test 10/26/16 07:59 Bedside Glucose 135 Medications Medications Current Medications Aspirin (Aspirin) 81 mg DAILY PO Last administered on 10/26/16 08:40; Admin Dose 81 MG; Start 10/14/16 at 09:00 Gabapentin (Neurontin) 300 mg TID PO Last administered on 10/26/16 08:40; Admin Dose 300 MG; Start 10/13/16 at 21:00 Insulin Glargine (Lantus) 5 unit HS SC Last administered on 10/25/16 20:17; Admin Dose 5 UNIT; Start 10/13/16 at 21:00 Atorvastatin Calcium (Lipitor) 10 mg HS PO Last administered on 10/25/16 20:11 ; Admin Dose 10 MG; Start 10/13/16 at 21:00 Ondansetron HCl (Zofran Inj) 4 mg Q6H PRN IV NAUSEA AND/OR VOMITING Last administered on 10/23/16 05:39; Admin Dose 4 MG; Start 10/13/16 at 15:30 Acetaminophen (Tylenol Tab) 650 mg Q6H PRN PO PAIN LEVEL 1-3 OR FEVER Last administered on 10/22/16 09:48; Admin Dose 650 MG; Start 10/13/16 at 15:30 Acetaminophen (Tylenol Supp) 650 mg Q6H PRN [place] PAIN LEVEL 1-3 OR FEVER; Start 10/13/16 at 15:30 Docusate Sodium (Colace) 100 mg Q12H PRN PO CONSTIPATION; Start 10/13/16 at 15: 30 Bisacodyl (Dulcolax) 5 mg DAILY PRN PO CONSTIPATION; Start 10/13/16 at 15:30 Pantoprazole (Protonix Tab) 40 mg DAILY@06 PO Last administered on 10/26/16 05 :33; Admin Dose 40 MG; Start 10/14/16 at 06:00 Diphenhydramine HCl (Benadryl) 25 mg Q6H PRN PO ITCHING; Start 10/13/16 at 15: 30 Miscellaneous Information 1 ea NOTE XX ; Start 10/13/16 at 16:00 Glucose (Glutose) 15 gm Q15M PRN PO DECREASED GLUCOSE; Start 10/13/16 at 16:00 Glucose (Glutose) 22.5 gm Q15M PRN PO DECREASED GLUCOSE; Start 10/13/16 at 16: 00 Dextrose (D50w Syringe) 25 ml Q15M PRN IV DECREASED GLUCOSE; Start 10/13/16 at 16:00 Dextrose (D50w Syringe) 50 ml Q15M PRN IV DECREASED GLUCOSE; Start 10/13/16 at 16:00 Glucagon (Glucagen) 1 mg Q15M PRN IM DECREASED GLUCOSE; Start 10/13/16 at 16:00 Glucose (Glutose) 15 gm Q15M PRN BUCCAL DECREASED GLUCOSE; Start 10/13/16 at 16 :00 Heparin Sodium (Porcine) (Heparin (5000 Units/0.5 ml)) 5,000 unit BID SC Last administered on 10/26/16 08:43; Admin Dose 5,000 UNIT; Start 10/13/16 at 21:00 Hydralazine HCl (Apresoline) 10 mg Q6H PRN IV SBP >160 Last administered on 19:57; Admin Dose 10 MG; Start 10/13/16 at 20:00 Lisinopril (Zestril) 5 mg DAILY PO Last administered on 10/26/16 08:40; Admin Dose 5 MG; Start 10/17/16 at 09:00 Metronidazole (Flagyl) 500 mg Q8 PO Last administered on 10/26/16 05:33; Admin Dose 500 MG; Start 10/18/16 at 09:30 Oxycodone/ Acetaminophen (Percocet (5/ 325)) 2 tab Q4H PRN PO MODERATE PAIN LEVEL 4-6 Last administered on 10/25/16 20:20; Admin Dose 2 TAB; Start at 01:00 Doxycycline Hyclate (Vibramycin) 100 mg BID PO Last administered on 10/26/16 08:40; Admin Dose 100 MG; Start 10/24/16 at 09:00 KAYLEIGH NORIEGA Oct 26, 2016 11:28
[2016-10-26] MEDS: OXYCODONE/ACETAMINOPHEN (5/325) TAB PO PRN ×2 (11:49→21:15)
--- NOTE | 2016-10-26 12:01 | CONS ---
Date/Time of Note Date/Time of Note DATE: 10/26/16 TIME: 12:00 Assessment/Plan Assessment/Plan Chief Complaint/Hosp Course SUBJECTIVE: Alert, looks comfortable, no fevers. ANTIMICROBIALS: Doxycycline, Flagyl PHYSICAL EXAMINATION: GENERAL: This is a well-nourished, well-developed, middle-aged woman who is alert, in no distress. HEENT: Head atraumatic, normocephalic. Sclerae anicteric. Buccal mucosa dry. NECK: Supple. CHEST: Rise symmetrical. Breath sounds diminished to bases. HEART: S1, S2. ABDOMEN: Soft. Bowel tones present. EXTREMITIES: With right foot gangrenous changes. ASSESSMENT: 1. Right foot gangrene. 2. Peripheral vascular disease. 3. Hypertension. 4. 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 5. C dif colitis PLAN: Stable, no diarrhea, continue abx, pending vascular intervention DW pt/RN Problems: Consultation Date/Type/Reason Admit Date/Time Oct 14, 2016 at 16:41 Type of Consultation: id Referring Provider: JOAQUINA MCKEON MD Exam/Review of Systems Vital Signs Vitals Vital Signs Date Time Temp Pulse Resp B/P Pulse Ox O2 Delivery O2 Flow Rate FiO2 10/26/16 07:38 98.3 71 18 138/62 98 10/23/16 20:00 Room Air Intake and Output 10/25/16 10/25/16 10/26/16 15:00 23:00 07:00 Intake Total 1020 ml 240 ml Output Total 1000 ml Balance 20 ml 240 ml Results Result Diagram: 10/26/16 0500 10/26/16 0500 Results 24 hrs Laboratory Tests Test 10/25/16 17:38 10/25/16 20:10 10/26/16 05:00 10/26/16 07:59 Bedside Glucose 183 169 135 White Blood Count 6.0 Red Blood Count 3.32 L Hemoglobin 10.0 L Hematocrit 30.9 L Mean Corpuscular Volume 93.1 Mean Corpuscular Hemoglobin 30.1 Mean Corpuscular Hemoglobin Concent 32.4 Red Cell Distribution Width 15.1 H Platelet Count 344 Mean Platelet Volume 10.0 Neutrophils % 55.0 Lymphocytes % 29.6 Monocytes % 9.6 Eosinophils % 4.5 Basophils % 0.3 Nucleated Red Blood Cells % 0.0 Neutrophils # 3.3 Lymphocytes # 1.8 Monocytes # 0.6 Eosinophils # 0.3 Basophils # 0.0 Nucleated Red Blood Cells # 0.0 Prothrombin Time 14.8 H Prothrombin Time Ratio 1.2 INR International Normalized Ratio 1.16 Activated Partial Thromboplast Time 36.2 H Sodium Level 137 Potassium Level 3.9 Chloride Level 102 Carbon Dioxide Level 29 Anion Gap 10 Blood Urea Nitrogen 13 Creatinine 0.44 Glucose Level 158 Calcium Level 8.7 Total Bilirubin 0.0 L Direct Bilirubin 0.00 Indirect Bilirubin 0.0 Aspartate Amino Transf (AST/SGOT) 20 Alanine Aminotransferase (ALT/SGPT) 23 Alkaline Phosphatase 80 Total Protein 6.6 Albumin 3.4 Globulin 3.20 Albumin/Globulin Ratio 1.06 Medications Medications Current Medications Aspirin (Aspirin) 81 mg DAILY PO Last administered on 10/26/16 08:40; Admin Dose 81 MG; Start 10/14/16 at 09:00 Gabapentin (Neurontin) 300 mg TID PO Last administered on 10/26/16 08:40; Admin Dose 300 MG; Start 10/13/16 at 21:00 Insulin Glargine (Lantus) 5 unit HS SC Last administered on 10/25/16 20:17; Admin Dose 5 UNIT; Start 10/13/16 at 21:00 Atorvastatin Calcium (Lipitor) 10 mg HS PO Last administered on 10/25/16 20:11 ; Admin Dose 10 MG; Start 10/13/16 at 21:00 Ondansetron HCl (Zofran Inj) 4 mg Q6H PRN IV NAUSEA AND/OR VOMITING Last administered on 10/23/16 05:39; Admin Dose 4 MG; Start 10/13/16 at 15:30 Acetaminophen (Tylenol Tab) 650 mg Q6H PRN PO PAIN LEVEL 1-3 OR FEVER Last administered on 10/22/16 09:48; Admin Dose 650 MG; Start 10/13/16 at 15:30 Acetaminophen (Tylenol Supp) 650 mg Q6H PRN [place] PAIN LEVEL 1-3 OR FEVER; Start 10/13/16 at 15:30 Docusate Sodium (Colace) 100 mg Q12H PRN PO CONSTIPATION; Start 10/13/16 at 15: 30 Bisacodyl (Dulcolax) 5 mg DAILY PRN PO CONSTIPATION; Start 10/13/16 at 15:30 Pantoprazole (Protonix Tab) 40 mg DAILY@06 PO Last administered on 10/26/16 05 :33; Admin Dose 40 MG; Start 10/14/16 at 06:00 Diphenhydramine HCl (Benadryl) 25 mg Q6H PRN PO ITCHING; Start 10/13/16 at 15: 30 Miscellaneous Information 1 ea NOTE XX ; Start 10/13/16 at 16:00 Glucose (Glutose) 15 gm Q15M PRN PO DECREASED GLUCOSE; Start 10/13/16 at 16:00 Glucose (Glutose) 22.5 gm Q15M PRN PO DECREASED GLUCOSE; Start 10/13/16 at 16: 00 Dextrose (D50w Syringe) 25 ml Q15M PRN IV DECREASED GLUCOSE; Start 10/13/16 at 16:00 Dextrose (D50w Syringe) 50 ml Q15M PRN IV DECREASED GLUCOSE; Start 10/13/16 at 16:00 Glucagon (Glucagen) 1 mg Q15M PRN IM DECREASED GLUCOSE; Start 10/13/16 at 16:00 Glucose (Glutose) 15 gm Q15M PRN BUCCAL DECREASED GLUCOSE; Start 10/13/16 at 16 :00 Heparin Sodium (Porcine) (Heparin (5000 Units/0.5 ml)) 5,000 unit BID SC Last administered on 10/26/16 08:43; Admin Dose 5,000 UNIT; Start 10/13/16 at 21:00 Hydralazine HCl (Apresoline) 10 mg Q6H PRN IV SBP >160 Last administered on 19:57; Admin Dose 10 MG; Start 10/13/16 at 20:00 Lisinopril (Zestril) 5 mg DAILY PO Last administered on 10/26/16 08:40; Admin Dose 5 MG; Start 10/17/16 at 09:00 Metronidazole (Flagyl) 500 mg Q8 PO Last administered on 10/26/16 05:33; Admin Dose 500 MG; Start 10/18/16 at 09:30 Oxycodone/ Acetaminophen (Percocet (5/ 325)) 2 tab Q4H PRN PO MODERATE PAIN LEVEL 4-6 Last administered on 10/26/16 11:49; Admin Dose 2 TAB; Start at 01:00 Doxycycline Hyclate (Vibramycin) 100 mg BID PO Last administered on 10/26/16t 08:40; Admin Dose 100 MG; Start 10/24/16 at 09:00 AKTHERYN RINALDI NP Oct 26, 2016 12:01
[2016-10-26] MEDS: ONDANSETRON 4 MG INJ IV PRN (13:57)
[2016-10-26 20:00] VITALS: BP 105/53; RESP 20
[2016-10-26] MEDS: ATORVASTATIN 10 MG TAB PO SCH (21:15)
[2016-10-26] MEDS: INSULIN GLARGINE [LANtus] 3 ML PEN SC SCH (21:22)
[2016-10-26] MEDS ORDERED: DEXTROSE 5%-0.45% NACL 1,000 ML IV SCH (22:30)
[2016-10-27] VITALS (7 sets, daily range): BP systolic 105–170; BP diastolic 60–86; PULSE 80; RESP 9–24
[2016-10-27] MEDS ORDERED: DEXTROSE 5%-0.45% NACL 1,000 ML IV SCH
[2016-10-27] MEDS: metroNIDAZOLE 500 MG TAB PO SCH ×3 (05:13→21:48)
[2016-10-27] MEDS: PANTOPRAZOLE (EC) 40 MG TAB PO SCH (05:13)
[2016-10-27 05:34] LABS: ADD SCAN DIFF NO
[2016-10-27 05:46] LABS: BASOPHILS % 0.5 % (0.0-2.0); EOSINOPHILS # 0.3 10^3/ul (0.0-0.5); EOSINOPHILS % 5.2 % (0.0-7.0); HEMATOCRIT 31.2 % (37.0-47.0); HEMOGLOBIN 9.9 g/dl (12.0-16.0); LYMPHOCYTES # 1.9 10^3/ul (0.8-2.9); LYMPHOCYTES % 31.5 % (15.0-51.0); MEAN CORPUSCULAR HEMOGLOBIN 29.8 pg (29.0-33.0); MEAN CORPUSCULAR HGB CONC 31.7 g/dl (32.0-37.0); MEAN PLATELET VOLUME 10.3 fl (7.4-10.4); MONOCYTE # 0.5 10^3/ul (0.3-0.9); MONOCYTES % 8.7 % (0.0-11.0); NEUTROPHIL # 3.2 10^3/ul (1.6-7.5); NEUTROPHILS % 53.4 % (39.0-77.0); PLATELET COUNT 321 10^3/UL (140-415); RED BLOOD COUNT 3.32 10^6/ul (4.20-5.40); RED CELL DISTRIBUTION WIDTH 15.3 % (11.5-14.5)
[2016-10-27 06:10] LABS: POTASSIUM 3.7 mmol/L (3.5-5.1)
[2016-10-27 06:12] LABS: CREATININE 0.48 mg/dl (0.44-1.00)
[2016-10-27 06:13] LABS: CALCIUM 8.8 mg/dl (8.4-10.2)
[2016-10-27] MEDS: GABAPENTIN 300 MG CAP PO SCH ×3 (08:37→21:48)
[2016-10-27] MEDS: DOXYCYCLINE 100 MG TAB PO SCH (08:37)
[2016-10-27] MEDS: INSULIN ASPART [NOVOLOG] 3 ML PEN SC SCH ×5 (08:37→21:00)
[2016-10-27] MEDS: ASPIRIN 81 MG TAB PO SCH (08:37)
[2016-10-27] MEDS: LISINOPRIL 5 MG TAB PO SCH (08:38)
--- NOTE | 2016-10-27 09:03 | CONS ---
Date/Time of Note Date/Time of Note DATE: 10/27/16 TIME: 09:01 Assessment/Plan Assessment/Plan Additional Assessment/Plan 1. Preoperative evaluation prior to possible lower extremity revascularization. - No ischemia by lexiscan and NL EF by echo with no sig valve abnl. Thus ok to proceed with surgery at relatively low to moderate risk on current medications without further noninvasive evaluation. Now post-op s/p LE angio - con't pain Rx strategy 2. Abnormal electrocardiogram with T-wave flattening isolated to the aVL.- negative troponin x 3 - no intervention planned 3. Hypertension with currently borderline hypotension today. 4. History of dyslipidemia. 5. Diabetes mellitus- on meds, con't to keep euglycemic. 6. Peripheral arterial disease with right lower extremity gangrenous changes- pain Rx, vascular follows 7. Status post left [id number] amputation. 8. Anemia. 9. C dif positive Consultation Date/Type/Reason Admit Date/Time Oct 14, 2016 at 16:41 Type of Consultation: id Referring Provider: JOAQUINA MCKEON MD 24 HR Interval Summary Free Text/Dictation No acute change - off tele - con't to keep euvolemic - pain RX as needed ROS: No fever, no chills, no nausea, no vomiting, no diarrhea/constipation No recent weight changes No chest pain, no PND, no orthopnea No dizziness, blurred vision No thirst, no heat or cold intolerance Exam/Review of Systems Vital Signs Vitals Vital Signs Date Time Temp Pulse Resp B/P Pulse Ox O2 Delivery O2 Flow Rate FiO2 10/27/16 07:44 99.3 73 20 138/73 99 10/23/16 20:00 Room Air Intake and Output 10/26/16 10/26/16 10/27/16 14:59 22:59 06:59 Intake Total 1020 ml 600 ml Output Total 900 ml 1800 ml Balance 120 ml -1200 ml Exam General: WN/WD/NAD, AOx 2-3 HEENT: Unicetric/atraumatic/EOMI ( follow commands) NECK: JVD elevated, no thyromegaly Lymph: no lymphadenopathy HEART: regular with no S3, II/ systolic murmur at apex LUNGS: Coarse sounds ABD: soft, NT, ND, +BS : Intact Neuro: non focal SKIN: chronic changes EXT: severe PVD Results Result Diagram: 10/27/16 0507 10/27/16 0507 Results 24 hrs Laboratory Tests Test 10/26/16 12:29 10/26/16 17:25 10/26/16 19:57 10/27/16 05:07 Bedside Glucose 221 H 117 169 White Blood Count 6.0 Red Blood Count 3.32 L Hemoglobin 9.9 L Hematocrit 31.2 L Mean Corpuscular Volume 94.0 Mean Corpuscular Hemoglobin 29.8 Mean Corpuscular Hemoglobin Concent 31.7 L Red Cell Distribution Width 15.3 H Platelet Count 321 Mean Platelet Volume 10.3 Neutrophils % 53.4 Lymphocytes % 31.5 Monocytes % 8.7 Eosinophils % 5.2 Basophils % 0.5 Nucleated Red Blood Cells % 0.0 Neutrophils # 3.2 Lymphocytes # 1.9 Monocytes # 0.5 Eosinophils # 0.3 Basophils # 0.0 Nucleated Red Blood Cells # 0.0 Sodium Level 134 L Potassium Level 3.7 Chloride Level 101 Carbon Dioxide Level 27 Anion Gap 10 Blood Urea Nitrogen 14 Creatinine 0.48 Glucose Level 141 Calcium Level 8.8 Test 10/27/16 07:48 Bedside Glucose 147 Medications Medications Current Medications Aspirin (Aspirin) 81 mg DAILY PO Last administered on 10/26/16 08:40; Admin Dose 81 MG; Start 10/14/16 at 09:00 Gabapentin (Neurontin) 300 mg TID PO Last administered on 10/26/16 21:15; Admin Dose 300 MG; Start 10/13/16 at 21:00 Insulin Glargine (Lantus) 5 unit HS SC Last administered on 10/26/16 21:22; Admin Dose 5 UNIT; Start 10/13/16 at 21:00 Atorvastatin Calcium (Lipitor) 10 mg HS PO Last administered on 10/26/16 21:15 ; Admin Dose 10 MG; Start 10/13/16 at 21:00 Ondansetron HCl (Zofran Inj) 4 mg Q6H PRN IV NAUSEA AND/OR VOMITING Last administered on 10/26/16 13:57; Admin Dose 4 MG; Start 10/13/16 at 15:30 Acetaminophen (Tylenol Tab) 650 mg Q6H PRN PO PAIN LEVEL 1-3 OR FEVER Last administered on 10/22/16 09:48; Admin Dose 650 MG; Start 10/13/16 at 15:30 Acetaminophen (Tylenol Supp) 650 mg Q6H PRN [place] PAIN LEVEL 1-3 OR FEVER; Start 10/13/16 at 15:30 Docusate Sodium (Colace) 100 mg Q12H PRN PO CONSTIPATION; Start 10/13/16 at 15: 30 Bisacodyl (Dulcolax) 5 mg DAILY PRN PO CONSTIPATION; Start 10/13/16 at 15:30 Pantoprazole (Protonix Tab) 40 mg DAILY@06 PO Last administered on 10/26/16 05 :33; Admin Dose 40 MG; Start 10/14/16 at 06:00 Diphenhydramine HCl (Benadryl) 25 mg Q6H PRN PO ITCHING; Start 10/13/16 at 15: 30 Miscellaneous Information 1 ea NOTE XX ; Start 10/13/16 at 16:00 Glucose (Glutose) 15 gm Q15M PRN PO DECREASED GLUCOSE; Start 10/13/16 at 16:00 Glucose (Glutose) 22.5 gm Q15M PRN PO DECREASED GLUCOSE; Start 10/13/16 at 16: 00 Dextrose (D50w Syringe) 25 ml Q15M PRN IV DECREASED GLUCOSE; Start 10/13/16 at 16:00 Dextrose (D50w Syringe) 50 ml Q15M PRN IV DECREASED GLUCOSE; Start 10/13/16 at 16:00 Glucagon (Glucagen) 1 mg Q15M PRN IM DECREASED GLUCOSE; Start 10/13/16 at 16:00 Glucose (Glutose) 15 gm Q15M PRN BUCCAL DECREASED GLUCOSE; Start 10/13/16 at 16 :00 Heparin Sodium (Porcine) (Heparin (5000 Units/0.5 ml)) 5,000 unit BID SC Last administered on 10/26/16 22:42; Admin Dose 5,000 UNIT; Start 10/13/16 at 21:00 Hydralazine HCl (Apresoline) 10 mg Q6H PRN IV SBP >160 Last administered on 19:57; Admin Dose 10 MG; Start 10/13/16 at 20:00 Lisinopril (Zestril) 5 mg DAILY PO Last administered on 10/26/16 08:40; Admin Dose 5 MG; Start 10/17/16 at 09:00 Metronidazole (Flagyl) 500 mg Q8 PO Last administered on 10/26/16 21:15; Admin Dose 500 MG; Start 10/18/16 at 09:30 Oxycodone/ Acetaminophen (Percocet (5/ 325)) 2 tab Q4H PRN PO MODERATE PAIN LEVEL 4-6 Last administered on 10/26/16 21:15; Admin Dose 2 TAB; Start at 01:00 Doxycycline Hyclate 100 mg 100 mg BID PO Last administered on 10/26/16 21:15; Admin Dose 100 MG; Start 10/24/16 at 09:00 Dextrose/Sodium Chloride (D5-1/2ns) 1,000 ml @ 50 mls/hr Q20H IV Last administered on 10/27/16 00:09; Admin Dose 50 MLS/HR; Start 10/27/16 at 00:00 APRYL IVY MD Oct 27, 2016 09:03
--- NOTE | 2016-10-27 09:35 | PN ---
Date/Time of Note Date/Time of Note DATE: 10/27/16 TIME: 09:33 Assessment/Plan VTE Prophylaxis VTE Prophylaxis Intervention: heparin Lines/Catheters IV Catheter Type (from Nrs): PICC Line Central line still needed: Yes Urinary Cath still in place: No Assessment/Plan Chief Complaint/Hosp Course Assessment/Plan: 50 F with: 1. Right foot cellulitis with gangrene - s/p RLE angiogram showed moderate obstructive PAD (infrainguinal disease) - per vascular surgery and podiatry plan - for vascular intervention today - f/u post-op rec's - optimize vascular status (BP meds, diet, nutrition, exercise, sugar control, antiplatelets) - continue abx per ID, f/u rec's. 2. Peripheral vascular disease - see # 1 3. Hypertension - bp stable - continue MILAGRO (-) 4. 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 Diabetic neuropathy - has Hx of DM-2 as well - FS stable presently - continue ISS and Lantus 6. anemia of chronic Disease - H/H stable - monitor for now 7. C Diff - positive - continue Flagyl for now. f/u ID rec's 8. GI ppx - PPI 9. heparin for DVT prophylaxis Problems: Subjective 24 Hr Interval Summary Free Text/Dictation No acute events overnight, awaiting vascular procedure for later today. Exam/Review of Systems Vital Signs Vitals Vital Signs Date Time Temp Pulse Resp B/P Pulse Ox O2 Delivery O2 Flow Rate FiO2 10/27/16 07:44 99.3 73 20 138/73 99 10/23/16 20:00 Room Air Intake and Output 10/26/16 10/26/16 10/27/16 15:00 23:00 07:00 Intake Total 1020 ml 600 ml Output Total 900 ml 1800 ml Balance 120 ml -1200 ml Exam HEENT: Pupils are equal and reactive to light. Anicteric sclerae. NECK: Supple, no JVD noted, no cervical adenopathy, no carotid bruits heard. LUNGS: Fair breath sounds bilaterally. CARDIOVASCULAR: S1, S2 normal. ABDOMEN: Soft, nontender. No organomegaly or masses noted. EXTREMITIES: Right foot fourth and fifth toe gangrenous changes status post left lower extremity AKA. No edema or cyanosis noted. NEUROLOGICAL: Awake. Results Result Diagram: 10/27/16 4396 10/27/16 0507 Results 24 hrs Laboratory Tests Test 10/26/16 12:29 10/26/16 17:25 10/26/16 19:57 10/27/16 05:07 Bedside Glucose 221 H 117 169 White Blood Count 6.0 Red Blood Count 3.32 L Hemoglobin 9.9 L Hematocrit 31.2 L Mean Corpuscular Volume 94.0 Mean Corpuscular Hemoglobin 29.8 Mean Corpuscular Hemoglobin Concent 31.7 L Red Cell Distribution Width 15.3 H Platelet Count 321 Mean Platelet Volume 10.3 Neutrophils % 53.4 Lymphocytes % 31.5 Monocytes % 8.7 Eosinophils % 5.2 Basophils % 0.5 Nucleated Red Blood Cells % 0.0 Neutrophils # 3.2 Lymphocytes # 1.9 Monocytes # 0.5 Eosinophils # 0.3 Basophils # 0.0 Nucleated Red Blood Cells # 0.0 Sodium Level 134 L Potassium Level 3.7 Chloride Level 101 Carbon Dioxide Level 27 Anion Gap 10 Blood Urea Nitrogen 14 Creatinine 0.48 Glucose Level 141 Calcium Level 8.8 Test 10/27/16 07:48 Bedside Glucose 147 Medications Medications Current Medications Aspirin (Aspirin) 81 mg DAILY PO Last administered on 10/26/16 08:40; Admin Dose 81 MG; Start 10/14/16 at 09:00 Gabapentin (Neurontin) 300 mg TID PO Last administered on 10/26/16 21:15; Admin Dose 300 MG; Start 10/13/16 at 21:00 Insulin Glargine (Lantus) 5 unit HS SC Last administered on 10/26/16 21:22; Admin Dose 5 UNIT; Start 10/13/16 at 21:00 Atorvastatin Calcium (Lipitor) 10 mg HS PO Last administered on 10/26/16 21:15 ; Admin Dose 10 MG; Start 10/13/16 at 21:00 Ondansetron HCl (Zofran Inj) 4 mg Q6H PRN IV NAUSEA AND/OR VOMITING Last administered on 10/26/16 13:57; Admin Dose 4 MG; Start 10/13/16 at 15:30 Acetaminophen (Tylenol Tab) 650 mg Q6H PRN PO PAIN LEVEL 1-3 OR FEVER Last administered on 10/22/16 09:48; Admin Dose 650 MG; Start 10/13/16 at 15:30 Acetaminophen (Tylenol Supp) 650 mg Q6H PRN [place] PAIN LEVEL 1-3 OR FEVER; Start 10/13/16 at 15:30 Docusate Sodium (Colace) 100 mg Q12H PRN PO CONSTIPATION; Start 10/13/16 at 15: 30 Bisacodyl (Dulcolax) 5 mg DAILY PRN PO CONSTIPATION; Start 10/13/16 at 15:30 Pantoprazole (Protonix Tab) 40 mg DAILY@06 PO Last administered on 10/26/16 05 :33; Admin Dose 40 MG; Start 10/14/16 at 06:00 Diphenhydramine HCl (Benadryl) 25 mg Q6H PRN PO ITCHING; Start 10/13/16 at 15: 30 Miscellaneous Information 1 ea NOTE XX ; Start 10/13/16 at 16:00 Glucose (Glutose) 15 gm Q15M PRN PO DECREASED GLUCOSE; Start 10/13/16 at 16:00 Glucose (Glutose) 22.5 gm Q15M PRN PO DECREASED GLUCOSE; Start 10/13/16 at 16: 00 Dextrose (D50w Syringe) 25 ml Q15M PRN IV DECREASED GLUCOSE; Start 10/13/16 at 16:00 Dextrose (D50w Syringe) 50 ml Q15M PRN IV DECREASED GLUCOSE; Start 10/13/16 at 16:00 Glucagon (Glucagen) 1 mg Q15M PRN IM DECREASED GLUCOSE; Start 10/13/16 at 16:00 Glucose (Glutose) 15 gm Q15M PRN BUCCAL DECREASED GLUCOSE; Start 10/13/16 at 16 :00 Heparin Sodium (Porcine) (Heparin (5000 Units/0.5 ml)) 5,000 unit BID SC Last administered on 10/26/16 22:42; Admin Dose 5,000 UNIT; Start 10/13/16 at 21:00 Hydralazine HCl (Apresoline) 10 mg Q6H PRN IV SBP >160 Last administered on 19:57; Admin Dose 10 MG; Start 10/13/16 at 20:00 Lisinopril (Zestril) 5 mg DAILY PO Last administered on 10/26/16 08:40; Admin Dose 5 MG; Start 10/17/16 at 09:00 Metronidazole (Flagyl) 500 mg Q8 PO Last administered on 10/26/16 21:15; Admin Dose 500 MG; Start 10/18/16 at 09:30 Oxycodone/ Acetaminophen (Percocet (5/ 325)) 2 tab Q4H PRN PO MODERATE PAIN LEVEL 4-6 Last administered on 10/26/16 21:15; Admin Dose 2 TAB; Start at 01:00 Doxycycline Hyclate 100 mg 100 mg BID PO Last administered on 10/26/16 21:15; Admin Dose 100 MG; Start 10/24/16 at 09:00 Dextrose/Sodium Chloride (D5-1/2ns) 1,000 ml @ 50 mls/hr Q20H IV Last administered on 10/27/16 00:09; Admin Dose 50 MLS/HR; Start 10/27/16 at 00:00 KELLEY BEVERLY 28, 2017 09:35
[2016-10-27] MEDS: HEPARIN 5,000 UNIT/0.5 ML SYG SC SCH ×2 (11:23→21:54)
[2016-10-27] MEDS ORDERED: SOD CHLORIDE 0.45% 500 ML ONE (12:11)
[2016-10-27] MEDS ORDERED: FENTAnyl 50 MCG/ML VIAL ONE (12:12)
[2016-10-27] MEDS ORDERED: MIDAZOLAM 1 MG/ML 2 ML INJ ONE (12:12)
[2016-10-27] MEDS ORDERED: HEPARIN 1000 UNITS/ML 10 ML INJ ONE (12:13)
[2016-10-27] MEDS ORDERED: NITROGLYCERIN (IC) 100 MCG/ML INJ ONE (12:29)
--- NOTE | 2016-10-27 13:00 | CONS ---
Date/Time of Note Date/Time of Note DATE: 10/27/16 TIME: 12:59 Assessment/Plan Assessment/Plan Chief Complaint/Hosp Course SUBJECTIVE: Alert, looks comfortable, no fevers. ANTIMICROBIALS: Doxycycline, Flagyl PHYSICAL EXAMINATION: GENERAL: This is a well-nourished, well-developed, middle-aged woman who is alert, in no distress. HEENT: Head atraumatic, normocephalic. Sclerae anicteric. Buccal mucosa dry. NECK: Supple. CHEST: Rise symmetrical. Breath sounds diminished to bases. HEART: S1, S2. ABDOMEN: Soft. Bowel tones present. EXTREMITIES: With right foot gangrenous changes. ASSESSMENT: 1. Right foot gangrene. 2. Peripheral vascular disease. 3. Hypertension. 4. 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 5. C dif colitis PLAN: Remains stable, dc Doxycycline, continue Flagyl, pending vascular intervention DW Dr Mckeon Problems: Consultation Date/Type/Reason Admit Date/Time Oct 14, 2016 at 16:41 Type of Consultation: id Referring Provider: JOAQUINA MCKEON MD Exam/Review of Systems Vital Signs Vitals Vital Signs Date Time Temp Pulse Resp B/P Pulse Ox O2 Delivery O2 Flow Rate FiO2 10/27/16 07:44 99.3 73 20 138/73 99 10/23/16 20:00 Room Air Intake and Output 10/26/16 10/26/16 10/27/16 15:00 23:00 07:00 Intake Total 1020 ml 600 ml Output Total 900 ml 1800 ml Balance 120 ml -1200 ml Results Result Diagram: 10/27/16 0507 10/27/16 0507 Results 24 hrs Laboratory Tests Test 10/26/16 17:25 10/26/16 19:57 10/27/16 05:07 10/27/16 07:48 Bedside Glucose 117 169 147 White Blood Count 6.0 Red Blood Count 3.32 L Hemoglobin 9.9 L Hematocrit 31.2 L Mean Corpuscular Volume 94.0 Mean Corpuscular Hemoglobin 29.8 Mean Corpuscular Hemoglobin Concent 31.7 L Red Cell Distribution Width 15.3 H Platelet Count 321 Mean Platelet Volume 10.3 Neutrophils % 53.4 Lymphocytes % 31.5 Monocytes % 8.7 Eosinophils % 5.2 Basophils % 0.5 Nucleated Red Blood Cells % 0.0 Neutrophils # 3.2 Lymphocytes # 1.9 Monocytes # 0.5 Eosinophils # 0.3 Basophils # 0.0 Nucleated Red Blood Cells # 0.0 Sodium Level 134 L Potassium Level 3.7 Chloride Level 101 Carbon Dioxide Level 27 Anion Gap 10 Blood Urea Nitrogen 14 Creatinine 0.48 Glucose Level 141 Calcium Level 8.8 Medications Medications Current Medications Aspirin (Aspirin) 81 mg DAILY PO Last administered on 10/26/16 08:40; Admin Dose 81 MG; Start 10/14/16 at 09:00 Gabapentin (Neurontin) 300 mg TID PO Last administered on 10/26/16 21:15; Admin Dose 300 MG; Start 10/13/16 at 21:00 Insulin Glargine (Lantus) 5 unit HS SC Last administered on 10/26/16 21:22; Admin Dose 5 UNIT; Start 10/13/16 at 21:00 Atorvastatin Calcium (Lipitor) 10 mg HS PO Last administered on 10/26/16 21:15 ; Admin Dose 10 MG; Start 10/13/16 at 21:00 Ondansetron HCl (Zofran Inj) 4 mg Q6H PRN IV NAUSEA AND/OR VOMITING Last administered on 10/26/16 13:57; Admin Dose 4 MG; Start 10/13/16 at 15:30 Acetaminophen (Tylenol Tab) 650 mg Q6H PRN PO PAIN LEVEL 1-3 OR FEVER Last administered on 10/22/16 09:48; Admin Dose 650 MG; Start 10/13/16 at 15:30 Acetaminophen (Tylenol Supp) 650 mg Q6H PRN [place] PAIN LEVEL 1-3 OR FEVER; Start 10/13/16 at 15:30 Docusate Sodium (Colace) 100 mg Q12H PRN PO CONSTIPATION; Start 10/13/16 at 15: 30 Bisacodyl (Dulcolax) 5 mg DAILY PRN PO CONSTIPATION; Start 10/13/16 at 15:30 Pantoprazole (Protonix Tab) 40 mg DAILY@06 PO Last administered on 10/26/16 05 :33; Admin Dose 40 MG; Start 10/14/16 at 06:00 Diphenhydramine HCl (Benadryl) 25 mg Q6H PRN PO ITCHING; Start 10/13/16 at 15: 30 Miscellaneous Information 1 ea NOTE XX ; Start 10/13/16 at 16:00 Glucose (Glutose) 15 gm Q15M PRN PO DECREASED GLUCOSE; Start 10/13/16 at 16:00 Glucose (Glutose) 22.5 gm Q15M PRN PO DECREASED GLUCOSE; Start 10/13/16 at 16: 00 Dextrose (D50w Syringe) 25 ml Q15M PRN IV DECREASED GLUCOSE; Start 10/13/16 at 16:00 Dextrose (D50w Syringe) 50 ml Q15M PRN IV DECREASED GLUCOSE; Start 10/13/16 at 16:00 Glucagon (Glucagen) 1 mg Q15M PRN IM DECREASED GLUCOSE; Start 10/13/16 at 16:00 Glucose (Glutose) 15 gm Q15M PRN BUCCAL DECREASED GLUCOSE; Start 10/13/16 at 16 :00 Heparin Sodium (Porcine) (Heparin (5000 Units/0.5 ml)) 5,000 unit BID SC Last administered on 10/27/16 11:23; Admin Dose 5,000 UNIT; Start 10/13/16 at 21:00 Hydralazine HCl (Apresoline) 10 mg Q6H PRN IV SBP >160 Last administered on 19:57; Admin Dose 10 MG; Start 10/13/16 at 20:00 Lisinopril (Zestril) 5 mg DAILY PO Last administered on 10/26/16 08:40; Admin Dose 5 MG; Start 10/17/16 at 09:00 Metronidazole (Flagyl) 500 mg Q8 PO Last administered on 10/26/16 21:15; Admin Dose 500 MG; Start 10/18/16 at 09:30 Oxycodone/ Acetaminophen (Percocet (5/ 325)) 2 tab Q4H PRN PO MODERATE PAIN LEVEL 4-6 Last administered on 10/26/16 21:15; Admin Dose 2 TAB; Start at 01:00 Doxycycline Hyclate 100 mg 100 mg BID PO Last administered on 10/26/16 21:15; Admin Dose 100 MG; Start 10/24/16 at 09:00 Dextrose/Sodium Chloride (D5-1/2ns) 1,000 ml @ 50 mls/hr Q20H IV Last administered on 10/27/16 00:09; Admin Dose 50 MLS/HR; Start 10/27/16 at 00:00 KATHERYN RINALDI NP Oct 27, 2016 13:00
[2016-10-27] MEDS ORDERED: VERAPAMIL 5 MG INJ ONE (13:03)
[2016-10-27] MEDS ORDERED: SOD CHLORIDE 0.9% 1,000 ML IV SCH (14:05)
[2016-10-27] MEDS ORDERED: ONDANSETRON 4 MG INJ IV PRN (14:30)
[2016-10-27] MEDS: CLOPIDOGREL 75 MG TAB PO SCH (14:51)
[2016-10-27] MEDS: OXYCODONE/ACETAMINOPHEN (5/325) TAB PO PRN ×2 (15:04→18:55)
--- NOTE | 2016-10-27 15:21 | OPR ---
DATE OF OPERATION: 10/27/2016 SURGEON: Zhou Giraldo MD FLUOROSCOPY SNYDER: Carlos Perez DPM PREOPERATIVE DIAGNOSIS: Right lower extremity gangrene. POSTOPERATIVE DIAGNOSIS: Right lower extremity gangrene. ANESTHESIA: Local with sedation. ESTIMATED BLOOD LOSS: Minimal. COMPLICATIONS: None. HEPARIN: 4000 units of heparin. CONTRAST: As recorded. ACCESS: Antegrade right common femoral artery, 6-[place] sheath. CLOSURE: Angio-Seal closure device and manual compression. SEDATION: Under physician supervision moderate sedation was administered intravenously under contin uous monitoring by the interventional team and attending physician. Pulse oximeter, heart rate, BPs were continuously monitored by interventional surgeon. PHYSICIAN SPENT TIME: 1 hour and 15 minutes of face to face sedation time with the patient. INDICATIONS: This is a 50-year-old female who presented with a history of left lower extremity gang nelly in which she underwent an eventual left hip disarticulation in which she still has a stump woun d, is being managed with local wound care. The patient now presents with right lower extremity diab etic foot infection and gangrene of her fourth, fifth, and partial of her third toe. The patient al so has had tissue loss and diminished pedal pulses. Upon angiography it was identified that the pa tieanjali is having moderate to severe SFA disease throughout her right lower extremity and also has dis owen anterior tibial proximal dorsalis pedis artery stenosis. Therefore, endovascular intervention w as discussed with the family as the patient wants to have everything done in order to preserve her l imb and provide adequate limb salvage. The patient was, therefore, informed of the risk, alternativ es, risks, and benefits of angiogram, balloon angioplasty, stenting, and atherectomy. The risks inc luding, but not limited to, bleeding, thrombosis, embolization, myocardial infarction, , device malfunction, infection, nephrotoxicity. The patient has agreed to proceed. PROCEDURE: 1. Ultrasound-guided access of an antegrade right common femoral artery. 2. Right lower extremity angiogram. 3. Right femoral and popliteal artery balloon angioplasty with a 5 mm x 220 cm balloon. 4. Right anterior tibial artery balloon angioplasty with 2.5 mm x 40 cm balloon. 5. Right dorsalis pedis artery angioplasty with 2.5 x 40 cm balloon. POSTOPERATIVE FINDINGS: No flow limiting stenosis identified from the common femoral artery all the way down to the patient's dorsalis pedis artery. DESCRIPTION OF PROCEDURE: The patient was brought into the angio suite and positioned in supine pos ition on the fluoroscopic table. Sedation was administered without complications. The right groin was shaved, prepped and draped in the usual standard sterile fashion. Time out on the appropriate s ite was marked and confirmed. Local anesthesia was infiltrated in the region of the right common fe moral artery. The artery was then cannulated with a micro access needle under ultrasound guidance i n an antegrade fashion. The guidewire was then advanced into the proximal superficial femoral arter y under fluoroscopic guidance. The needle was then removed and the micro catheter was placed. A Be ntson wire was then passed into the above-knee popliteal artery under fluoroscopic guidance followed by a short 6-[place] sheath over the wire. The sheath was then appropriately flushed with hepariniz ed saline solution. At this point, using a Glidewire and a guiding catheter, we were able to cannul ate the dorsalis pedis artery in a second order fashion. At this point, the guidewire was exchanged with a Spartacore 0.014 wire. Once this was accomplished, we went ahead and used a 2.5 mm x 40 cm balloon and performed angioplasty of the distal anterior tibial artery and proximal dorsalis pedis a rtery. Upon the completion of that, we performed femoral and above-knee popliteal artery balloon an gioplasty with a 5 mm x 220 cm balloon. Post-intervention angiogram identified adequate flow throug h the areas that were angioplastied; however, there was still some residual stenosis in the above-kn ee popliteal artery. We went ahead and performed angioplasty of that segment as well. Upon complet ion, adequate flow and perfusion to the lower leg was identified. No flow limiting stenosis was david ntified. There was some vasospasm that was identified in the distal aspect of the anterior tibial a rtery in which we gave the patient nitro and verapamil concoction. Following that, we performed ang ioplasty of that segment with a 2.5 mm x 40 cm balloon to evaluate for any waste in the balloon. No waste was identified and seemed to be mainly vasospasm. At this point, a repeat angiogram was perf ormed and identified the patient has adequate infrapopliteal flow into the dorsalis pedis artery and into the tarsal artery. Post intervention, the patient's lower extremity capillary refill of 2 sec onds and adequate venous filling. At this point, we went ahead and removed all catheters, sheaths a nd wires. Angioseal closure device was deployed in the right groin. Adequate manual compression wa s held. All instruments, sponges, needles were correct x2. The patient was taken to the postanesth esia care unit in stable condition. We will plan to start the patient on aspirin and Plavix for 90 days. Dictated By: ZHOU EPPERSON/TRACE Conf#: [id number] DID#: [id number]
[2016-10-27] MEDS: ATORVASTATIN 10 MG TAB PO SCH (21:48)
[2016-10-27] MEDS: INSULIN GLARGINE [LANtus] 3 ML PEN SC SCH (21:53)
--- NOTE | 2016-10-27 23:43 | PN ---
Date/Time of Note Date/Time of Note DATE: 10/27/16 TIME: 23:43 Assessment/Plan Lines/Catheters IV Catheter Type (from [facility]): PICC Line Vee in Place (from [facility]): No Exam/Review of Systems Vital Signs Vitals Vital Signs Date Time Temp Pulse Resp B/P Pulse Ox O2 Delivery O2 Flow Rate FiO2 10/27/16 20:00 98.9 68 20 105/60 96 10/23/16 20:00 Room Air Intake and Output 10/26/16 10/26/16 10/27/16 15:00 23:00 07:00 Intake Total 1020 ml 600 ml Output Total 900 ml 1800 ml Balance 120 ml -1200 ml Results Result Diagram: 10/27/16 0507 10/27/16 0507 MARIANA LING DPM Oct 27, 2016 23:43
[2016-10-28] MEDS: OXYCODONE/ACETAMINOPHEN (5/325) TAB PO PRN (02:59)
[2016-10-28 06:05] LABS: ADD SCAN DIFF NO
[2016-10-28] MEDS: PANTOPRAZOLE (EC) 40 MG TAB PO SCH (06:08)
[2016-10-28] MEDS: metroNIDAZOLE 500 MG TAB PO SCH ×2 (06:08→15:43)
[2016-10-28 06:14] LABS: BASOPHILS % 0.3 % (0.0-2.0); EOSINOPHILS # 0.2 10^3/ul (0.0-0.5); EOSINOPHILS % 3.2 % (0.0-7.0); HEMATOCRIT 30.6 % (37.0-47.0); HEMOGLOBIN 9.8 g/dl (12.0-16.0); LYMPHOCYTES # 1.5 10^3/ul (0.8-2.9); LYMPHOCYTES % 25.2 % (15.0-51.0); MEAN CORPUSCULAR HEMOGLOBIN 30.3 pg (29.0-33.0); MEAN CORPUSCULAR VOLUME 94.7 fl (82.0-101.0); MEAN PLATELET VOLUME 9.9 fl (7.4-10.4); MONOCYTE # 0.5 10^3/ul (0.3-0.9); MONOCYTES % 8.1 % (0.0-11.0); NEUTROPHIL # 3.7 10^3/ul (1.6-7.5); NEUTROPHILS % 62.7 % (39.0-77.0); PLATELET COUNT 323 10^3/UL (140-415); RED BLOOD COUNT 3.23 10^6/ul (4.20-5.40); RED CELL DISTRIBUTION WIDTH 15.4 % (11.5-14.5); WHITE BLOOD COUNT 5.9 10^3/ul (4.8-10.8)
[2016-10-28 06:30] LABS: POTASSIUM 3.7 mmol/L (3.5-5.1)
[2016-10-28 06:33] LABS: CREATININE 0.44 mg/dl (0.44-1.00)
[2016-10-28 06:34] LABS: CALCIUM 8.6 mg/dl (8.4-10.2)
[2016-10-28] MEDS: INSULIN ASPART [NOVOLOG] 3 ML PEN SC SCH ×3 (08:15→18:00)
[2016-10-28 08:16] VITALS: BP 105/58; RESP 16
[2016-10-28] MEDS: LISINOPRIL 5 MG TAB PO SCH (09:00)
[2016-10-28] MEDS: ASPIRIN 81 MG TAB PO SCH (09:18)
[2016-10-28] MEDS: GABAPENTIN 300 MG CAP PO SCH ×2 (09:18→12:35)
[2016-10-28] MEDS: CLOPIDOGREL 75 MG TAB PO SCH (09:18)
[2016-10-28] MEDS: HEPARIN 5,000 UNIT/0.5 ML SYG SC SCH (09:27)
--- NOTE | 2016-10-28 09:43 | PN ---
Date/Time of Note Date/Time of Note DATE: 10/28/16 TIME: 09:37 Assessment/Plan VTE Prophylaxis VTE Prophylaxis Intervention: heparin Lines/Catheters IV Catheter Type (from [facility]): PICC Line Central line still needed: Yes Urinary Cath still in place: No Assessment/Plan Chief Complaint/Hosp Course Assessment/Plan: 50 F with: 1. Right foot cellulitis with gangrene - s/p RLE angiogram earlier this admission showed moderate obstructive PAD (infrainguinal disease). Again, s/p angioplasty yesterday of RLE as well. - f/u vascular surgery and podiatry plan, f/u post-op rec's - optimize vascular status (BP meds, diet, nutrition, exercise, sugar control, antiplatelets) - continue abx Flagyl per ID, f/u rec's. 2. Peripheral vascular disease - see # 1 3. Hypertension - bp stable - continue MILAGRO (-) 4. 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 Diabetic neuropathy - has Hx of DM-2 as well - FS stable presently - continue ISS and Lantus 6. anemia of chronic Disease - H/H stable - monitor for now 7. C Diff - positive - continue Flagyl for now. f/u ID rec's 8. GI ppx - PPI 9. heparin for DVT prophylaxis Problems: Subjective 24 Hr Interval Summary Free Text/Dictation Pt had RLE angiogram with angioplasty yesterday, no acute events overnight. Exam/Review of Systems Vital Signs Vitals Vital Signs Date Time Temp Pulse Resp B/P Pulse Ox O2 Delivery O2 Flow Rate FiO2 10/28/16 08:16 97.9 67 16 105/58 98 Intake and Output 10/27/16 10/27/16 10/28/16 15:00 23:00 07:00 Intake Total 352 ml 430 ml 240 ml Output Total 900 ml 800 ml Balance 352 ml -470 ml -560 ml Exam HEENT: Pupils are equal and reactive to light. Anicteric sclerae. NECK: Supple, no JVD noted, no cervical adenopathy, no carotid bruits heard. LUNGS: Fair breath sounds bilaterally. CARDIOVASCULAR: S1, S2 normal. ABDOMEN: Soft, nontender. No organomegaly or masses noted. EXTREMITIES: Right foot fourth and fifth toe gangrenous changes status post left lower extremity AKA. No edema or cyanosis noted. NEUROLOGICAL: Awake. Results Result Diagram: 10/28/16 0600 10/28/16 0600 Results 24 hrs Laboratory Tests Test 10/27/16 14:43 10/27/16 21:46 10/28/16 06:00 10/28/16 08:07 Bedside Glucose 161 180 126 White Blood Count 5.9 Red Blood Count 3.23 L Hemoglobin 9.8 L Hematocrit 30.6 L Mean Corpuscular Volume 94.7 Mean Corpuscular Hemoglobin 30.3 Mean Corpuscular Hemoglobin Concent 32.0 Red Cell Distribution Width 15.4 H Platelet Count 323 Mean Platelet Volume 9.9 Neutrophils % 62.7 Lymphocytes % 25.2 Monocytes % 8.1 Eosinophils % 3.2 Basophils % 0.3 Nucleated Red Blood Cells % 0.0 Neutrophils # 3.7 Lymphocytes # 1.5 Monocytes # 0.5 Eosinophils # 0.2 Basophils # 0.0 Nucleated Red Blood Cells # 0.0 Sodium Level 136 Potassium Level 3.7 Chloride Level 102 Carbon Dioxide Level 27 Anion Gap 11 Blood Urea Nitrogen 13 Creatinine 0.44 Glucose Level 154 Calcium Level 8.6 Medications Medications Current Medications Aspirin (Aspirin) 81 mg DAILY PO Last administered on 10/28/16 09:18; Admin Dose 81 MG; Start 10/14/16 at 09:00 Gabapentin (Neurontin) 300 mg TID PO Last administered on 10/28/16 09:18; Admin Dose 300 MG; Start 10/13/16 at 21:00 Insulin Glargine (Lantus) 5 unit HS SC Last administered on 10/27/16 21:53; Admin Dose 5 UNIT; Start 10/13/16 at 21:00 Atorvastatin Calcium (Lipitor) 10 mg HS PO Last administered on 10/27/16 21:48 ; Admin Dose 10 MG; Start 10/13/16 at 21:00 Ondansetron HCl (Zofran Inj) 4 mg Q6H PRN IV NAUSEA AND/OR VOMITING Last administered on 10/26/16 13:57; Admin Dose 4 MG; Start 10/13/16 at 15:30 Acetaminophen (Tylenol Tab) 650 mg Q6H PRN PO PAIN LEVEL 1-3 OR FEVER Last administered on 10/22/16 09:48; Admin Dose 650 MG; Start 10/13/16 at 15:30 Acetaminophen (Tylenol Supp) 650 mg Q6H PRN [place] PAIN LEVEL 1-3 OR FEVER; Start 10/13/16 at 15:30 Docusate Sodium (Colace) 100 mg Q12H PRN PO CONSTIPATION; Start 10/13/16 at 15: 30 Bisacodyl (Dulcolax) 5 mg DAILY PRN PO CONSTIPATION; Start 10/13/16 at 15:30 Pantoprazole (Protonix Tab) 40 mg DAILY@06 PO Last administered on 10/28/16 06 :08; Admin Dose 40 MG; Start 10/14/16 at 06:00 Diphenhydramine HCl (Benadryl) 25 mg Q6H PRN PO ITCHING; Start 10/13/16 at 15: 30 Miscellaneous Information 1 ea NOTE XX ; Start 10/13/16 at 16:00 Glucose (Glutose) 15 gm Q15M PRN PO DECREASED GLUCOSE; Start 10/13/16 at 16:00 Glucose (Glutose) 22.5 gm Q15M PRN PO DECREASED GLUCOSE; Start 10/13/16 at 16: 00 Dextrose (D50w Syringe) 25 ml Q15M PRN IV DECREASED GLUCOSE; Start 10/13/16 at 16:00 Dextrose (D50w Syringe) 50 ml Q15M PRN IV DECREASED GLUCOSE; Start 10/13/16 at 16:00 Glucagon (Glucagen) 1 mg Q15M PRN IM DECREASED GLUCOSE; Start 10/13/16 at 16:00 Glucose (Glutose) 15 gm Q15M PRN BUCCAL DECREASED GLUCOSE; Start 10/13/16 at 16 :00 Heparin Sodium (Porcine) (Heparin (5000 Units/0.5 ml)) 5,000 unit BID SC Last administered on 10/28/16 09:27; Admin Dose 5,000 UNIT; Start 10/13/16 at 21:00 Hydralazine HCl (Apresoline) 10 mg Q6H PRN IV SBP >160 Last administered on 19:57; Admin Dose 10 MG; Start 10/13/16 at 20:00 Lisinopril (Zestril) 5 mg DAILY PO Last administered on 10/26/16 08:40; Admin Dose 5 MG; Start 10/17/16 at 09:00 Metronidazole (Flagyl) 500 mg Q8 PO Last administered on 10/28/16 06:08; Admin Dose 500 MG; Start 10/18/16 at 09:30 Oxycodone/ Acetaminophen (Percocet (5/ 325)) 2 tab Q4H PRN PO MODERATE PAIN LEVEL 4-6 Last administered on 10/28/16 02:59; Admin Dose 2 TAB; Start at 01:00 Ondansetron HCl (Zofran Inj) 4 mg Q4H PRN IV NAUSEA AND/OR VOMITING; Start at 14:30 Clopidogrel Bisulfate (plaVIX) 75 mg DAILY PO Last administered on 10/28/16 09 :18; Admin Dose 75 MG; Start 10/27/16 at 14:30 KELLEY BEVERLY Oct 28, 2016 09:43
--- NOTE | 2016-10-28 11:14 | PDOCDIS ---
Discharge Instructions CONDITION Patient Condition: Stable HOME CARE INSTRUCTIONS: Special Diet: CARB CONTROL ACTIVITY: Activity Restrictions: Slowly Increase Activity FOLLOW UP/APPOINTMENTS Appointments Please take your medications, see your doctor in the clinic in 1 week. KELLEY BEVERLY Oct 28, 2016 11:14
[2016-10-28] MEDS ORDERED: METR500T14 PO (11:15)
[2016-10-28] MEDS ORDERED: ATOR10TA65 PO (11:15)
[2016-10-28] MEDS ORDERED: CLOP75TA28 PO (11:17)
--- NOTE | 2016-10-28 11:56 | DS ---
DATE OF ADMISSION: 10/14/2016 DATE OF DISCHARGE: 10/28/2016 A 50-year-old female originally admitted on 10/13/2016 being discharged home pending clearance from vascular surgery team on 10/28/2016. HOSPITAL COURSE: The patient initially came in with right foot cellulitis and gangrene. She was admitted and seen by multiple specialists during this hospital stay including infectious disease team, cardiology team, vascular surgery team. The patient was placed on antibiotics initially. She had a right lower extremity angiogram, early on in this admission, that showed moderate obstructive peripheral artery disease and infrainguinal disease. She was also found with C. diff colitis and placed on antibiotics for that. Afterwards, the patient's labs were checked, her vital signs were checked as well. Her labs were stable. Her white blood cell count was normal. Again, her C. diff test was positive. Her C difficile symptoms improved. Patient was emotionally labile during the hospital stay because she was concerned about possible amputation, as she has a prior history of left lower extremity amputation in the past secondary to peripheral vascular disease. In any event, she ended up undergoing a procedure by vascular surgery team. She had at this time another right lower extremity angiogram and this time she had a right femoral popliteal artery balloon angioplasty performed, as well as a right anterior tibial artery balloon angioplasty and a right dorsalis pedis artery angioplasty performed. The patient tolerated the procedure well. She had increased circulation to right lower extremity. She was back at her baseline status. Her vital signs were stable on the day of discharge. She was started on Plavix and aspirin as well. Her blood pressure was controlled with blood pressure medicines as well. If she gets cleared by vascular surgery team today, she will be discharged home today in improved condition. DISCHARGE MEDICATIONS: She will be sent with: 1. Atorvastatin 10 mg at bedtime. 2. Plavix 75 mg daily x 90 days 3. Flagyl 500 mg p.o. q.8h. for 2 more days. 4. She will continue aspirin 81 mg daily. 5. Gabapentin 300 mg t.i.d. 6. Lantus 5 units subcu at bedtime. 7. Lisinopril 10 mg daily. She will need to follow up with primary care doctor team and vascular surgery team in the clinic in the next 1 to 2 weeks. FINAL DIAGNOSIS: 1. Right foot cellulitis and gangrene, status post treatment with antibiotics. 2. Peripheral vascular disease status post right lower extremity angiogram with angioplasty performed on right lower extremity. 3. Hypertension, stable. 4. History of left [id number] amputation with a hip disarticulation in the past. 5. Diabetic neuropathy. 6. History of type 2 diabetes. 7. C. difficile positive, now on antibiotic treatment, improving. 8. History of anemia of chronic disease. 9. History of high cholesterol. Time spent with discharging the patient 45 minutes. Dictated By: KELLEY DIGGS Conf#: [id number] DID#: [id number] MTDOsman
--- NOTE | 2016-10-28 12:53 | CONS ---
Date/Time of Note Date/Time of Note DATE: 10/28/16 TIME: 12:52 Assessment/Plan Assessment/Plan Chief Complaint/Hosp Course SUBJECTIVE: Alert, looks comfortable, no fevers. ANTIMICROBIALS: Flagyl PHYSICAL EXAMINATION: GENERAL: This is a well-nourished, well-developed, middle-aged woman who is alert, in no distress. HEENT: Head atraumatic, normocephalic. Sclerae anicteric. Buccal mucosa dry. NECK: Supple. CHEST: Rise symmetrical. Breath sounds diminished to bases. HEART: S1, S2. ABDOMEN: Soft. Bowel tones present. EXTREMITIES: With right foot gangrenous changes. ASSESSMENT: 1. Right foot gangrene. 2. Peripheral vascular disease==> s/p angioplasty. 3. Hypertension. 4. 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 5. C dif colitis PLAN: Remains stable, complete 2 weeks of Flagyl, dc planning SHAHLA GALE pt Problems: Consultation Date/Type/Reason Admit Date/Time Oct 14, 2016 at 16:41 Type of Consultation: id Referring Provider: JOAQUINA MCKEON MD Exam/Review of Systems Vital Signs Vitals Vital Signs Date Time Temp Pulse Resp B/P Pulse Ox O2 Delivery O2 Flow Rate FiO2 10/28/16 08:16 97.9 67 16 105/58 98 Intake and Output 10/27/16 10/27/16 10/28/16 15:00 23:00 07:00 Intake Total 352 ml 430 ml 240 ml Output Total 900 ml 800 ml Balance 352 ml -470 ml -560 ml Results Result Diagram: 10/28/16 0600 10/28/16 0600 Results 24 hrs Laboratory Tests Test 10/27/16 14:43 10/27/16 21:46 10/28/16 06:00 10/28/16 08:07 Bedside Glucose 161 180 126 White Blood Count 5.9 Red Blood Count 3.23 L Hemoglobin 9.8 L Hematocrit 30.6 L Mean Corpuscular Volume 94.7 Mean Corpuscular Hemoglobin 30.3 Mean Corpuscular Hemoglobin Concent 32.0 Red Cell Distribution Width 15.4 H Platelet Count 323 Mean Platelet Volume 9.9 Neutrophils % 62.7 Lymphocytes % 25.2 Monocytes % 8.1 Eosinophils % 3.2 Basophils % 0.3 Nucleated Red Blood Cells % 0.0 Neutrophils # 3.7 Lymphocytes # 1.5 Monocytes # 0.5 Eosinophils # 0.2 Basophils # 0.0 Nucleated Red Blood Cells # 0.0 Sodium Level 136 Potassium Level 3.7 Chloride Level 102 Carbon Dioxide Level 27 Anion Gap 11 Blood Urea Nitrogen 13 Creatinine 0.44 Glucose Level 154 Calcium Level 8.6 Test 10/28/16 11:51 Bedside Glucose 217 Medications Medications Current Medications Aspirin (Aspirin) 81 mg DAILY PO Last administered on 10/28/16 09:18; Admin Dose 81 MG; Start 10/14/16 at 09:00 Gabapentin (Neurontin) 300 mg TID PO Last administered on 10/28/16 12:35; Admin Dose 300 MG; Start 10/13/16 at 21:00 Insulin Glargine (Lantus) 5 unit HS SC Last administered on 10/27/16 21:53; Admin Dose 5 UNIT; Start 10/13/16 at 21:00 Atorvastatin Calcium (Lipitor) 10 mg HS PO Last administered on 10/27/16 21:48 ; Admin Dose 10 MG; Start 10/13/16 at 21:00 Ondansetron HCl (Zofran Inj) 4 mg Q6H PRN IV NAUSEA AND/OR VOMITING Last administered on 10/26/16 13:57; Admin Dose 4 MG; Start 10/13/16 at 15:30 Acetaminophen (Tylenol Tab) 650 mg Q6H PRN PO PAIN LEVEL 1-3 OR FEVER Last administered on 10/22/16 09:48; Admin Dose 650 MG; Start 10/13/16 at 15:30 Acetaminophen (Tylenol Supp) 650 mg Q6H PRN [place] PAIN LEVEL 1-3 OR FEVER; Start 10/13/16 at 15:30 Docusate Sodium (Colace) 100 mg Q12H PRN PO CONSTIPATION; Start 10/13/16 at 15: 30 Bisacodyl (Dulcolax) 5 mg DAILY PRN PO CONSTIPATION; Start 10/13/16 at 15:30 Pantoprazole (Protonix Tab) 40 mg DAILY@06 PO Last administered on 10/28/16 06 :08; Admin Dose 40 MG; Start 10/14/16 at 06:00 Diphenhydramine HCl (Benadryl) 25 mg Q6H PRN PO ITCHING; Start 10/13/16 at 15: 30 Miscellaneous Information 1 ea NOTE XX ; Start 10/13/16 at 16:00 Glucose (Glutose) 15 gm Q15M PRN PO DECREASED GLUCOSE; Start 10/13/16 at 16:00 Glucose (Glutose) 22.5 gm Q15M PRN PO DECREASED GLUCOSE; Start 10/13/16 at 16: 00 Dextrose (D50w Syringe) 25 ml Q15M PRN IV DECREASED GLUCOSE; Start 10/13/16 at 16:00 Dextrose (D50w Syringe) 50 ml Q15M PRN IV DECREASED GLUCOSE; Start 10/13/16 at 16:00 Glucagon (Glucagen) 1 mg Q15M PRN IM DECREASED GLUCOSE; Start 10/13/16 at 16:00 Glucose (Glutose) 15 gm Q15M PRN BUCCAL DECREASED GLUCOSE; Start 10/13/16 at 16 :00 Heparin Sodium (Porcine) (Heparin (5000 Units/0.5 ml)) 5,000 unit BID SC Last administered on 10/28/16 09:27; Admin Dose 5,000 UNIT; Start 10/13/16 at 21:00 Hydralazine HCl (Apresoline) 10 mg Q6H PRN IV SBP >160 Last administered on 19:57; Admin Dose 10 MG; Start 10/13/16 at 20:00 Lisinopril (Zestril) 5 mg DAILY PO Last administered on 10/26/16 08:40; Admin Dose 5 MG; Start 10/17/16 at 09:00 Metronidazole (Flagyl) 500 mg Q8 PO Last administered on 10/28/16 06:08; Admin Dose 500 MG; Start 10/18/16 at 09:30 Oxycodone/ Acetaminophen (Percocet (5/ 325)) 2 tab Q4H PRN PO MODERATE PAIN LEVEL 4-6 Last administered on 10/28/16 02:59; Admin Dose 2 TAB; Start at 01:00 Ondansetron HCl (Zofran Inj) 4 mg Q4H PRN IV NAUSEA AND/OR VOMITING; Start at 14:30 Clopidogrel Bisulfate (plaVIX) 75 mg DAILY PO Last administered on 10/28/16 09 :18; Admin Dose 75 MG; Start 10/27/16 at 14:30 KATHERYN RINALDI NP Oct 28, 2016 12:53
--- NOTE | 2016-10-28 13:18 | CONS ---
Date/Time of Note Date/Time of Note DATE: 10/28/16 TIME: 13:15 Assessment/Plan Assessment/Plan Chief Complaint/Hosp Course IMPRESSION: 1. Preoperative evaluation prior to possible lower extremity revascularization. - No ischemia by lexiscan and NL EF by echo with no sig valve abnl. Thus ok to proceed with surgery at relatively low to moderate risk on current medications without further noninvasive evaluation. Now post-op s/p LE angio 2. Abnormal electrocardiogram with T-wave flattening isolated to the aVL.- negative troponin x 3 3. Hypertension with currently borderline hypotension today. 4. History of dyslipidemia. 5. Diabetes mellitus. 6. Peripheral arterial disease with right lower extremity gangrenous changes s/ p RLE APRICOT WASHER by vascular surgery 7. Status post left [id number] amputation. 8. Anemia. 9. C dif positive Recc: -Tele -Continue asa/plavix -Continue statin -Continue ACEI and follow very labile BP closely -local wound care/pain control -Continue flagyl/abx's Problems: Consultation Date/Type/Reason Admit Date/Time Oct 14, 2016 at 16:41 Initial Consult Date 10/14/2016 Type of Consultation: Cardiology Reason for Consultation Pre-op/HTN Referring Provider: JOAQUINA MCKEON MD Exam/Review of Systems Vital Signs Vitals Vital Signs Date Time Temp Pulse Resp B/P Pulse Ox O2 Delivery O2 Flow Rate FiO2 10/28/16 08:16 97.9 67 16 105/58 98 Intake and Output 10/27/16 10/27/16 10/28/16 15:00 23:00 07:00 Intake Total 352 ml 430 ml 240 ml Output Total 900 ml 800 ml Balance 352 ml -470 ml -560 ml Exam Review of Systems: CONSTITUTIONAL: No fevers, chills. PULMONARY: No sob CARDIOVASCULAR: No chest pain/palpitations GASTROINTESTINAL: No nausea/vomiting. GENITOURINARY: No hematuria/dysuria. MUSCULOSKELETAL: Mild pain in foot PSYCHIATRIC: The patient denies depression. NEUROLOGIC: No weakness Constitutional: alert Psych: no complaints Head: normocephalic ENMT: mucosa pink and moist Neck: jvd (9 cm water), supple Respiratory: clear to auscultation Cardiovascular: regular rate and rhythm Gastrointestinal: non-tender, soft Musculoskeletal: other (garenous chanes of R toe) Extremities: other (LLE s/p amputation) Results Result Diagram: 10/28/16 0600 10/28/16 0600 Results 24 hrs Laboratory Tests Test 10/27/16 14:43 10/27/16 21:46 10/28/16 06:00 10/28/16 08:07 Bedside Glucose 161 180 126 White Blood Count 5.9 Red Blood Count 3.23 L Hemoglobin 9.8 L Hematocrit 30.6 L Mean Corpuscular Volume 94.7 Mean Corpuscular Hemoglobin 30.3 Mean Corpuscular Hemoglobin Concent 32.0 Red Cell Distribution Width 15.4 H Platelet Count 323 Mean Platelet Volume 9.9 Neutrophils % 62.7 Lymphocytes % 25.2 Monocytes % 8.1 Eosinophils % 3.2 Basophils % 0.3 Nucleated Red Blood Cells % 0.0 Neutrophils # 3.7 Lymphocytes # 1.5 Monocytes # 0.5 Eosinophils # 0.2 Basophils # 0.0 Nucleated Red Blood Cells # 0.0 Sodium Level 136 Potassium Level 3.7 Chloride Level 102 Carbon Dioxide Level 27 Anion Gap 11 Blood Urea Nitrogen 13 Creatinine 0.44 Glucose Level 154 Calcium Level 8.6 Test 10/28/16 11:51 Bedside Glucose 217 Medications Medications Current Medications Aspirin (Aspirin) 81 mg DAILY PO Last administered on 10/28/16 09:18; Admin Dose 81 MG; Start 10/14/16 at 09:00 Gabapentin (Neurontin) 300 mg TID PO Last administered on 10/28/16 12:35; Admin Dose 300 MG; Start 10/13/16 at 21:00 Insulin Glargine (Lantus) 5 unit HS SC Last administered on 10/27/16 21:53; Admin Dose 5 UNIT; Start 10/13/16 at 21:00 Atorvastatin Calcium (Lipitor) 10 mg HS PO Last administered on 10/27/16 21:48 ; Admin Dose 10 MG; Start 10/13/16 at 21:00 Ondansetron HCl (Zofran Inj) 4 mg Q6H PRN IV NAUSEA AND/OR VOMITING Last administered on 10/26/16 13:57; Admin Dose 4 MG; Start 10/13/16 at 15:30 Acetaminophen (Tylenol Tab) 650 mg Q6H PRN PO PAIN LEVEL 1-3 OR FEVER Last administered on 10/22/16 09:48; Admin Dose 650 MG; Start 10/13/16 at 15:30 Acetaminophen (Tylenol Supp) 650 mg Q6H PRN [place] PAIN LEVEL 1-3 OR FEVER; Start 10/13/16 at 15:30 Docusate Sodium (Colace) 100 mg Q12H PRN PO CONSTIPATION; Start 10/13/16 at 15: 30 Bisacodyl (Dulcolax) 5 mg DAILY PRN PO CONSTIPATION; Start 10/13/16 at 15:30 Pantoprazole (Protonix Tab) 40 mg DAILY@06 PO Last administered on 10/28/16 06 :08; Admin Dose 40 MG; Start 10/14/16 at 06:00 Diphenhydramine HCl (Benadryl) 25 mg Q6H PRN PO ITCHING; Start 10/13/16 at 15: 30 Miscellaneous Information 1 ea NOTE XX ; Start 10/13/16 at 16:00 Glucose (Glutose) 15 gm Q15M PRN PO DECREASED GLUCOSE; Start 10/13/16 at 16:00 Glucose (Glutose) 22.5 gm Q15M PRN PO DECREASED GLUCOSE; Start 10/13/16 at 16: 00 Dextrose (D50w Syringe) 25 ml Q15M PRN IV DECREASED GLUCOSE; Start 10/13/16 at 16:00 Dextrose (D50w Syringe) 50 ml Q15M PRN IV DECREASED GLUCOSE; Start 10/13/16 at 16:00 Glucagon (Glucagen) 1 mg Q15M PRN IM DECREASED GLUCOSE; Start 10/13/16 at 16:00 Glucose (Glutose) 15 gm Q15M PRN BUCCAL DECREASED GLUCOSE; Start 10/13/16 at 16 :00 Heparin Sodium (Porcine) (Heparin (5000 Units/0.5 ml)) 5,000 unit BID SC Last administered on 10/28/16 09:27; Admin Dose 5,000 UNIT; Start 10/13/16 at 21:00 Hydralazine HCl (Apresoline) 10 mg Q6H PRN IV SBP >160 Last administered on 19:57; Admin Dose 10 MG; Start 10/13/16 at 20:00 Lisinopril (Zestril) 5 mg DAILY PO Last administered on 10/26/16 08:40; Admin Dose 5 MG; Start 10/17/16 at 09:00 Metronidazole (Flagyl) 500 mg Q8 PO Last administered on 10/28/16 06:08; Admin Dose 500 MG; Start 10/18/16 at 09:30 Oxycodone/ Acetaminophen (Percocet (5/ 325)) 2 tab Q4H PRN PO MODERATE PAIN LEVEL 4-6 Last administered on 10/28/16 02:59; Admin Dose 2 TAB; Start at 01:00 Ondansetron HCl (Zofran Inj) 4 mg Q4H PRN IV NAUSEA AND/OR VOMITING; Start at 14:30 Clopidogrel Bisulfate (plaVIX) 75 mg DAILY PO Last administered on 10/28/16 09 :18; Admin Dose 75 MG; Start 10/27/16 at 14:30 KAYLEIGH NORIEGA Oct 28, 2016 13:18
== END 2016-10-28 18:45 | disposition home or self-care (01) | DRG 253 ==
LOC: SDS 09:20 → MS2 11:20 → SDS 11:20 → MS2 13:43 → OBSVTOIN 10-14 16:41 → MS2 10-20 14:05
PROVIDERS: ADMIT Family Medicine; ATTEND Family Medicine
PROC: B41F1ZZ Fluoroscopy of Right Lower Extremity Arteries using Low Osmolar Contrast (ICD-10-PCS; 2016-10-19)
PROC: B4101ZZ Fluoroscopy of Abdominal Aorta using Low Osmolar Contrast (ICD-10-PCS; 2016-10-19)
PROC: 047P3ZZ Dilation of Right Anterior Tibial Artery, Percutaneous Approach (ICD-10-PCS; 2016-10-27)
PROC: 047K3ZZ Dilation of Right Femoral Artery, Percutaneous Approach (ICD-10-PCS; principal; 2016-10-27 12:00)
PROC: 047M3ZZ Dilation of Right Popliteal Artery, Percutaneous Approach (ICD-10-PCS; 2016-10-27 12:00)
DX: E11.52 Type 2 diabetes mellitus with diabetic peripheral angiopathy with gangrene (principal); A04.7 Enterocolitis due to Clostridium difficile; I70.261 Atherosclerosis of native arteries of extremities with gangrene, right leg; E11.42 Type 2 diabetes mellitus with diabetic polyneuropathy; L03.115 Cellulitis of right lower limb; D63.8 Anemia in other chronic diseases classified elsewhere; E78.00 Pure hypercholesterolemia, unspecified; E78.5 Hyperlipidemia, unspecified; I10 Essential (primary) hypertension; R94.31 Abnormal electrocardiogram [ECG] [EKG]; Z79.4 Long term (current) use of insulin; Z79.82 Long term (current) use of aspirin; Z83.3 Family history of diabetes mellitus; Z82.49 Family history of ischemic heart disease and other diseases of the circulatory system; Z99.3 Dependence on wheelchair; Z89.622 Acquired absence of left hip joint
CPT/HCPCS: 75630; 75635; 78452; 80048; 80053; 80061; 80202; 82565; 82962; 83036; 83735; 84132; 84484; 84520; 84703; 85025; 85610; 85730; 87075; 93005; 93017; 93306; 93970; A9500; A9505; C1725; C1760; C1769; C1887; C1894; G0378; J0360; J0696; J1644; J1815; J2250; J2270; J2405; J2785; J2997; J3010; J3370; J7030; J7040; J7042; Q9967

== ENCOUNTER 2016-11-11 13:37 | Day surgery (SDC) | payer BC ==
[~2016-11-11] VITALS: Ht 154.9 cm; Wt 55.0 kg
[2016-11-11] VITALS (16 sets, daily range): BP systolic 102–163; BP diastolic 59–77; PULSE 89–104; RESP 10–16; Ht 154.9 cm; Wt 55.0 kg
[~2016-11-11 13:37] MED LIST changes: +ACETAMINOPHEN 1000 MG/100 ML IVPB ONE; -ACID1TAB14 PO; +ATOR10TA65 PO; -CEFT1PIG2 IVPB; -CLOP75TA27 PO; +CLOP75TA28 PO; +GABA300C16 PO; -GEMF600T60 PO; -LINE600T6 PO; +SEVOFLURANE 15 MIN ONE; -SITA1TAB7 PO
[2016-11-11] MEDS ORDERED: CEFAZOLIN 2 GM/50 ML (PMX) 50 ML IVPB ONE (14:00)
[2016-11-11] MEDS ORDERED: LANT3I SC (14:13)
[2016-11-11] MEDS ORDERED: ZOC10 PO (14:18)
[2016-11-11] MEDS ORDERED: INSU100I17 SQ (14:19)
[2016-11-11] MEDS ORDERED: ATOR10TA65 PO (14:22)
[2016-11-11] MEDS ORDERED: morphine 2 MG INJ IV ONE (14:30)
[2016-11-11 15:17] LABS: ADD SCAN DIFF NO
[2016-11-11 15:19] LABS: BASOPHILS % 0.3 % (0.0-2.0); EOSINOPHILS # 0.3 10^3/ul (0.0-0.5); EOSINOPHILS % 3.3 % (0.0-7.0); HEMATOCRIT 33.6 % (37.0-47.0); HEMOGLOBIN 11.1 g/dl (12.0-16.0); LYMPHOCYTES # 1.4 10^3/ul (0.8-2.9); LYMPHOCYTES % 13.5 % (15.0-51.0); MEAN CORPUSCULAR HEMOGLOBIN 30.8 pg (29.0-33.0); MEAN CORPUSCULAR VOLUME 93.3 fl (82.0-101.0); MEAN PLATELET VOLUME 9.8 fl (7.4-10.4); MONOCYTE # 0.6 10^3/ul (0.3-0.9); MONOCYTES % 6.2 % (0.0-11.0); NEUTROPHIL # 7.7 10^3/ul (1.6-7.5); NEUTROPHILS % 76.3 % (39.0-77.0); PLATELET COUNT 430 10^3/UL (140-415); RED CELL DISTRIBUTION WIDTH 14.4 % (11.5-14.5); WHITE BLOOD COUNT 10.1 10^3/ul (4.8-10.8)
[2016-11-11 15:29] LABS: INR 1.03; PROTIME 13.5 Sec (12.2-14.2); PT RATIO 1.1
[2016-11-11 15:41] LABS: CALCIUM 9.2 mg/dl (8.4-10.2); CREATININE 0.37 mg/dl (0.44-1.00); POTASSIUM 4.4 mmol/L (3.5-5.1)
[2016-11-11] MEDS ORDERED: BUPIVACAINE 0.5% (SDV) 30 ML INJ ONE (15:42)
[2016-11-11] MEDS ORDERED: POLYMYXIN/BACITRACIN 1L IRRIG ONE (15:42)
[2016-11-11] MEDS ORDERED: LIDOCAINE 2% (MDV) 20 ML INJ ONE (15:42)
[2016-11-11] MEDS ORDERED: PROPOFOL 20 ML ONE (15:46)
[2016-11-11] MEDS ORDERED: LIDOCAINE 2% (SDV) 5 ML INJ ONE (15:46)
[2016-11-11] MEDS ORDERED: MIDAZOLAM 1 MG/ML 2 ML INJ ONE (15:47)
[2016-11-11] MEDS ORDERED: FENTAnyl 50 MCG/ML VIAL ONE (15:47)
[2016-11-11 16:07] LABS: PARTIAL THROMBOPLASTIN TIME 40.3 Sec (25.0-35.0)
--- NOTE | 2016-11-11 16:21 | HPN ---
Date/Time of Note Date/Time of Note DATE: 11/11/16 TIME: 16:20 Interval H&P Admission Note Pt. seen H&P reviewed: No system changes MARIANA LING DPM Nov 11, 2016 16:21
[2016-11-11] MEDS ORDERED: CEFAZOLIN 1 GM INJ ONE (16:43)
[2016-11-11] MEDS ORDERED: ACETAMINOPHEN 1000MG/100ML IV 100 ML ONE (16:43)
[2016-11-11] MEDS ORDERED: METOCLOPRAMIDE 10 MG INJ ONE (16:53)
[2016-11-11] MEDS ORDERED: ONDANSETRON 4 MG INJ ONE (16:53)
[2016-11-11] MEDS ORDERED: EPHEDrine SULFATE 50 MG/5 ML SYG ONE (17:01)
--- NOTE | 2016-11-11 17:26 | OPR ---
Date/Time of Note Date/Time of Note DATE: 11/11/16 TIME: 17:26 Operative Report Procedure Date: Nov 11, 2016 Preoperative Diagnosis Right fourth toe gangrene Right fifth toe gangrene Peripheral vascular disease Status post left hip disarticulation and left leg amputation Diabetes mellitus Peripheral neuropathy Postoperative Diagnosis Right fourth toe gangrene Right fifth toe gangrene Peripheral vascular disease Status post left hip disarticulation and left leg amputation Diabetes mellitus Peripheral neuropathy Operation Performed Amputation of right fourth gangrenous toe Amputation of right fifth gangrenous toe Metatarsal head resection right fourth Metatarsal head resection right fifth Application of wound VAC right foot Surgeon: MARIANA LING DPM Anesthesia: general, MAC Estimated Blood Loss: minimal Specimens Right fourth and fifth gangrenous toes along with metatarsal head 4 and 5 right foot. Complications: None Pt Condition Post Procedure: stable Disposition: PACU Indications This is a pleasant 50-year-old female patient who has been suffering with gangrene of right fourth and fifth toes along with the lateral aspect of the third toe for the past few months. Patient was evaluated and was found to have severe peripheral vascular disease. Patient's foot is well demarcated at this point and is amenable to surgical management. Risks and complications of this type of surgery was discussed with patient in great detail. Risks and complications discussed included, but are not limited to, postoperative infection, postoperative pain, hardware failure, failure of surgery to correct the problem, need for additional surgical procedures, deep venous thrombosis, limb loss and loss of life. Patient understands the discussion and agrees to the procedure. An informed consent was signed, obtained and placed in the chart. No guarantees or warrantees was given or implied as to the outcome of the procedure either in verbal or written form. Procedure Description Procedure in detail: The patient was seen in the preoperative area. Proposed surgery was discussed in great detail. Opportunity was given to patient to ask questions and the questions were answered. The patient was brought into the operating room and was placed on the operating table in the supine position. IV sedation was administered to the patient by the anesthesiologist. All bony prominences were padded probably. A timeout was called by the circulating nurse. The correct site of surgery was identified. All instrumentation was checked. All necessary preoperative medications have been administered. The right foot was scrubbed, prepped and draped in the usual aseptic manner. Procedure #1: Attention was directed to the right foot: Gangrene of right fifth, fourth and lateral part of the right third toe was noted. A sharp #15 blade was used to excise the right fourth and fifth toes and they were disarticulated at the metatarsophalangeal joint. There was no bleeding noted during the amputation. The head of the fourth and fifth metatarsals were cut using a power saw. More proximal sharp debridement was done to bleeding tissue. The lateral aspect of the third toe was also sharply debrided to bleeding tissue. The wound was flushed with copious amounts of sterile normal saline. I applied ACEL powder and a wound VAC to the wound. The patient tolerated the procedure and anesthesia well. She was transferred to the recovery room with vital signs stable and vascular status intact to the right foot. Patient will be discharged home after postoperative monitoring. Postoperative orders have been written. Patient will be followed up in 1 week. MARIANA LING DPM Nov 11, 2016 17:26
[2016-11-11] MEDS ORDERED: FENTAnyl 50 MCG/ML VIAL IV PRN (17:30)
[2016-11-11] MEDS ORDERED: ONDANSETRON 4 MG INJ IV PRN (17:30)
[2016-11-11] MEDS ORDERED: MEPERIDINE 25 MG INJ IV PRN (17:30)
[2016-11-11] MEDS ORDERED: KETOROLAC 30 MG INJ IV ONE (17:30)
[2016-11-11] MEDS ORDERED: DIPHENHYDRAMINE 50 MG INJ IV PRN (17:30)
[2016-11-11] MEDS ORDERED: PROCHLORPERAZINE 10 MG INJ IV PRN (17:30)
--- NOTE | 2016-11-12 14:06 | RADRPT ---
PROCEDURE: XR Right Foot. CLINICAL INDICATION: Right foot pain. Postop. TECHNIQUE: Three views. Frontal, lateral, and oblique. COMPARISON: 09/17/2016. FINDINGS: There has been interval amputation through the mid shafts of the fourth and fifth metatarsals. Ther e is an overlying wound vac. Vascular calcifications are present consistent with atherosclerosis. The articular surfaces are intact. There are calcaneal spurs. There is no lytic or blastic lesion. There is no radiopaque foreign body. IMPRESSION: 1. Amputation through the mid shafts of the fourth and fifth metatarsals. 2. Atherosclerosis. 3. Calcaneal spurs. 4. No other new abnormality. RPTAT: QQ .Chidi Mcnulty MD, MD Date Time Electronically viewed and signed by .Chidi Mcnulty MD, on 11/12/2016 14:05 .R/
== END 2016-11-11 19:02 | disposition home or self-care (01) ==
LOC: SDS 13:37
PROVIDERS: ATTEND Podiatrist Foot & Ankle Surgery
DX: I73.9 Peripheral vascular disease, unspecified (principal); E11.42 Type 2 diabetes mellitus with diabetic polyneuropathy; E78.5 Hyperlipidemia, unspecified
CPT/HCPCS: 28810; 73630; 80048; 82962; 85025; 85610; 85730; 88304; 88311; J0131; J0690; J2250; J2270; J2405; J2765; J3010; Q4118; Z7512; Z7610

== ENCOUNTER 2016-11-19 11:16 | Inpatient (IN) | payer BC ==
[~2016-11-19] VITALS: Ht 154.9 cm; Wt 55.0 kg
[~2016-11-19 11:16] MED LIST changes: -ACETAMINOPHEN 1000 MG/100 ML IVPB ONE; +INSU100I17 SQ; -METR500T14 PO; -SEVOFLURANE 15 MIN ONE; +ZOC10 PO
[2016-11-19 12:54] VITALS: BP 111/71; PULSE 76; RESP 18
--- NOTE | 2016-11-19 13:55 | HP ---
DATE OF ADMISSION: 11/19/2016 VASCULAR SURGERY CONSULTATION Dear Doctors: Ms. Gomes is a 50-year-old female known to our vascular surgery service group who presented to [facility] with right lower extremity gangrene in which she had presented with her right 4th and 5th toe infe ction and a partial 3rd toe gangrene. 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 At the moment, the patient has a stump wound th ere that we have been managing for her with local wound care that is essentially almost healed with our collagen based dressings. The patient was recently hospitalized at [facility] for her right lower extremity gangrene presentation. At that time, patient underwent an angiogram with intervention of her fem-po p angioplasty and her anterior tibial and dorsalis pedis artery angioplasty in order to have no flow -limiting stenosis in order to increase her perfusion to her lower leg. Subsequently, the patient u nderwent amputation of her fourth and fifth toe and ACell graft placement in order to build new gran ulation tissue and provide adequate limb salvage for her. The patient has been adamant on multiple occasions that she would like to have everything done in order to prevent any further amputations or loss of limb. The patient at the moment denies shortness of breath, chest pain, nausea, vomiting, fever, chills. She does have right lower extremity discomfort, especially over the areas of the amp utation, which is tender. Her amputation site on the lateral aspect seems to be fine. There is erlin e fibrinous tissue; however, her third toe essentially has become all gangrene now, whereas before i t was partial, and it seems that way all the way up to the third metatarsal. She has no pus or puru lence identified. Again, she mentions that she has been independent and she would like to have ever ything done for this. PAST MEDICAL HISTORY: Entails hypertension, coronary artery disease, bilateral lower extremity athe rosclerosis, diabetes, hypercholesterolemia. PAST SURGICAL HISTORY: Right lower extremity endovascular interventions, left lower extremity hip d isarticulation, angiogram, right foot surgery. SOCIAL HISTORY: Denies current alcohol, tobacco or illicit drug use. Patient is independent and am bulatory with her 1 leg. FAMILY HISTORY: Positive for coronary artery disease and diabetes. REVIEW OF SYSTEMS: A 12-point review performed and negative except what is mentioned in the HPI. PHYSICAL EXAMINATION: GENERAL: Alert and oriented x3. No apparent distress. HEENT: Normocephalic, atraumatic. PERRLA, EOMI. Mucosa moist. NECK: Supple. No carotid bruit. PULMONARY: Clear to auscultation bilaterally. No crackles. CARDIOVASCULAR: S1, S2 present. No murmurs. ABDOMEN: Soft, nontender, nondistended. Bowel sounds positive. EXTREMITIES: Right lower extremity: Palpable femoral pulse, nonpalpable pedal pulse. Motor, sensory intact. Ca pillary refill 3 seconds. There is an amputation site of the fourth and fifth toe which has some fi brinous necrotic tissue and third toe gangrene that is dry. No pus or purulence identified and no a reas of erythema identified. Left lower extremity: The patient has a hip disarticulation incision stump that essentially almost all healed. There is good capillary refill in that segment. ASSESSMENT AND PLAN: 1. Bilateral lower extremity atherosclerosis with gangrene: It seems the patient has developed a w orsening right third toe gangrene and will require to have this debrided and amputated. We will jeanne n to admit the patient to the hospital for IV antibiotics and for debridement and right third toe am putation. We will also plan to schedule her for an ACell graft placement with appropriate wound VAC . The patient's previous wound VAC was not functioning well and has seemed to develop a lot of mace ration on the plantar aspect of the amputation sites. 2. Optimize vascular status (BP meds, diet, nutrition, exercise, sugar control, antiplatelets). 3. The patient will need to be started on antibiotics. Will discuss the findings with our infectio us disease doctors. 4. We scheduled the patient for debridement of the amputation stump area and possible third toe amp utation. 5. At the moment, we will plan to apply with a dry dressing. Discussed findings, plan and management with the patient, she understands with a certified translato r. Thank you for allowing us to partake in the care of your patient. Please call with any questions. Dictated By: JOAQUINA EPEPRSON/TRACE Conf#: [id number] [facility]#: [id number]
[2016-11-19] MEDS: morphine 2 MG INJ IV ONE ×2 (16:27→16:28)
[2016-11-19 16:56] LABS: ADD SCAN DIFF NO
[2016-11-19 17:06] LABS: POTASSIUM 3.8 mmol/L (3.5-5.1)
[2016-11-19 17:08] LABS: CREATININE 0.42 mg/dl (0.44-1.00); INR 1.14; PROTIME 14.6 Sec (12.2-14.2); PT RATIO 1.1
[2016-11-19 17:09] LABS: CALCIUM 9.2 mg/dl (8.4-10.2); PARTIAL THROMBOPLASTIN TIME 39.7 Sec (25.0-35.0)
[2016-11-19 17:11] LABS: BASOPHILS % 0.1 % (0.0-2.0); EOSINOPHILS # 0.2 10^3/ul (0.0-0.5); EOSINOPHILS % 2.4 % (0.0-7.0); HEMATOCRIT 30.7 % (37.0-47.0); HEMOGLOBIN 10.4 g/dl (12.0-16.0); LYMPHOCYTES # 1.2 10^3/ul (0.8-2.9); LYMPHOCYTES % 15.3 % (15.0-51.0); MEAN CORPUSCULAR HEMOGLOBIN 31.2 pg (29.0-33.0); MEAN CORPUSCULAR HGB CONC 33.9 g/dl (32.0-37.0); MEAN CORPUSCULAR VOLUME 92.2 fl (82.0-101.0); MEAN PLATELET VOLUME 9.7 fl (7.4-10.4); MONOCYTE # 0.5 10^3/ul (0.3-0.9); MONOCYTES % 6.6 % (0.0-11.0); PLATELET COUNT 362 10^3/UL (140-415); RED BLOOD COUNT 3.33 10^6/ul (4.20-5.40); RED CELL DISTRIBUTION WIDTH 13.7 % (11.5-14.5); WHITE BLOOD COUNT 7.9 10^3/ul (4.8-10.8)
[2016-11-19] MEDS ORDERED: VANCOMYCIN IV PER PHARMACY XX SCH (17:30)
--- NOTE | 2016-11-19 17:53 | CONS ---
DATE OF ADMISSION: 11/19/2016 DATE OF CONSULTATION: 11/19/2016 INFECTIOUS DISEASE CONSULTATION REASON FOR CONSULTATION: Antibiotic management. HISTORY OF PRESENT ILLNESS: Cat Gomes is a 51-year-old female with numerous problems, who comes in with vascular problems. Her problems include: 1. Hypertension. 2. Coronary artery disease. 3. Bilateral lower extremity atherosclerosis. 4. Diabetes. 5. Hypercholesterolemia. 6. Right lower extremity endovascular interventions. 7. Left lower extremity hip disarticulation, angiogram, right first toe. Acutely, the patient presents with right lower extremity gangrene which she had presented with her r ight 4th and 5th toe infection, partial right toe with gangrene. She has a history of left lower ex tremity gangrene. She developed significant infection gas gangrene, had led to left hip disarticula tion then at a tertiary care facility. She has a stump wound that has been managed with local wound care and is almost healed with collagen based dressings. She was recently hospitalized at [facility] for right lower extremity gangrene. She underwent an angiogram with intervention of the femoral popliteal angioplasty and her anterior tibial and dorsalis pedis artery angioplasty in orde r to have no flow limiting stenosis and to increase the perfusion in her lower leg. She underwent a mputation of the 4th and 5th toe and ACell graft placement in order to building of granulation tissu e and provide adequate limb salvage for her. She would have everything done in order to prevent any further amputation or loss of limb. She denies shortness of breath. She does have right lower ext remity discomfort, especially over the area of amputation, which is tender. There is some fibrinous tissue; however, her 3rd toe essentially has become all gangrene now, whereas before it was partial , and it seems that this is all the way up to the 3rd metatarsal. PAST MEDICAL HISTORY: Operations as outlined. SOCIAL HISTORY: She does not smoke, drink or abuse drugs. ALLERGIES: NONE TO PENICILLIN, SULFA OR FOODS. MEDICATIONS: Per chart. REVIEW OF SYSTEMS: As per HPI. PHYSICAL EXAMINATION: GENERAL: The patient is a well-developed, well-nourished female who is alert, responsive, in no acu te distress. VITAL SIGNS: Stable. She is afebrile. SKIN: Without generalized rash. HEENT: Within normal limits. NECK: Supple. LYMPH NODES: None palpable. CHEST: Decreased breath sounds at the bases. HEART: Without murmur or gallop. ABDOMEN: Soft, nontender, without organosplenomegaly or masses. EXTREMITIES: Left lower extremity, she has hip disarticulation with a stump that is almost healed. She has right lower extremity, nonpalpable pedal pulse, amputation of the 4th and 5th toe which has some fibrinous necrotic tissue, 3rd toe gangrene is dry. LABORATORY DATA: On admission, her white count was 7.9, H and H 10.4 and 30.7 and platelet count of 362,000. BUN and creatinine 16/0.42. IMPRESSION AND PLAN: She is currently on no antibiotic therapy. She has gangrenous changes of the right 3rd toe. She needs debridement of the 3rd toe amputation. I am going to start him on vancomy andre and cefepime. I do not know if blood cultures were done, but will make sure they are. I will d ictate my findings to Dr. Giraldo. Dictated By: SAVANNA BRICEÑO MD, JD/TRACE Conf#: [id number] DID#: [id number]
[2016-11-19] MEDS: INSULIN ASPART [NOVOLOG] 3 ML PEN SC SCH ×2 (18:01→20:57)
[2016-11-19] MEDS: CEFEPIME 1GM/50 ML (PMX) 50 ML IVPB SCH (18:33)
[2016-11-19] MEDS: OXYCODONE/ACETAMINOPHEN (5/325) TAB PO PRN (19:00)
[2016-11-19] MEDS: VANCOMYCIN 1 GM in NS 250 ML IVPB SCH (19:18)
[2016-11-19 20:00] VITALS: BP 176/77; PULSE 68
[2016-11-19 20:32] VITALS: BP 179/77; RESP 19
[2016-11-19] MEDS: SOD CHLORIDE 0.45% 1,000 ML IV SCH (20:50)
[2016-11-19] MEDS: GABAPENTIN 300 MG CAP PO SCH (20:50)
[2016-11-19] MEDS: ATORVASTATIN 10 MG TAB PO SCH (20:51)
[2016-11-19] MEDS ORDERED: LISINOPRIL 10 MG TAB PO ONE (21:30)
[2016-11-19] MEDS ORDERED: morphine 4 MG/ML VIAL IV PRN (21:30)
[2016-11-19 23:00] VITALS: BP 145/71; PULSE 74
[2016-11-20] VITALS (17 sets, daily range): BP systolic 99–153; BP diastolic 55–70; PULSE 51–78; RESP 12–20
[2016-11-20] MEDS: ACCU-CHEK XX SCH (02:00)
[2016-11-20] MEDS: HYDROmorphONE 1 MG/ML SYG IV PRN ×5 (03:13→22:50)
--- NOTE | 2016-11-20 06:01 | RADRPT ---
PROCEDURE: XR Chest. CLINICAL INDICATION: Preop TECHNIQUE: A single AP view of the chest was obtained. COMPARISON: Chest x-ray dated 09/24/2016 FINDINGS: There is mild elevation of the right diaphragm. No focal airspace opacification, pleural effusion o r pneumothorax is seen. The cardiomediastinal silhouette is within normal limits for size. Calcific ations are seen within the aortic arch. The osseous structures are unremarkable. IMPRESSION: 1. No radiographic evidence of acute cardiopulmonary disease. 2. Aortic atherosclerosis. RPTAT: HH .Breonna Julien MD, Date Time Electronically viewed and signed by .Breonna Julien MD, MD on 11/20/2016 06:01 .G/
[2016-11-20] MEDS: VANCOMYCIN 1 GM in NS 250 ML IVPB SCH ×2 (06:02→18:00)
[2016-11-20] MEDS: INSULIN ASPART [NOVOLOG] 3 ML PEN SC SCH ×4 (08:00→21:00)
[2016-11-20] MEDS ORDERED: GLUCOSE GEL 15 GRAM TUBE BUCCAL PRN (08:00)
[2016-11-20] MEDS ORDERED: GLUCOSE GEL 15 GRAM TUBE PO PRN ×2 (08:00)
[2016-11-20] MEDS ORDERED: DEXTROSE 50% 50 ML SYRINGE IV PRN ×2 (08:00)
[2016-11-20] MEDS ORDERED: GLUCAGON 1 MG INJ IM PRN (08:00)
[2016-11-20] MEDS: LISINOPRIL 10 MG TAB PO SCH (08:25)
[2016-11-20] MEDS: GABAPENTIN 300 MG CAP PO SCH ×3 (08:25→22:52)
--- NOTE | 2016-11-20 09:33 | RADRPT ---
Vent Rate: 77 bpm RR Interval: 0 msec SD Interval: 160 msec QRS Duration: 72 msec QT Interval: 386 msec QTC Interval: 436 msec P-R-T [place]: 66 - -56 - 52 degrees Normal sinus rhythm Low voltage QRS Left anterior fascicular block Cannot rule out Anterior infarct , age undetermined Abnormal ECG Electronically Signed By: Lucas Lobato [id number]
[2016-11-20] MEDS: CEFEPIME 1GM/50 ML (PMX) 50 ML IVPB SCH ×2 (09:52→22:53)
[2016-11-20] MEDS: SOD CHLORIDE 0.45% 1,000 ML IV SCH (15:30)
[2016-11-20] MEDS ORDERED: hydrALAzine 20 MG INJ IV PRN (16:30)
--- NOTE | 2016-11-20 17:04 | HP ---
DATE OF ADMISSION: 11/19/2016 The patient was admitted by Dr. Healy on 11/19/2016 and this patient was taken over by the hospitalist group on 11/20/2016. (However, there was no history and physical done by the primary physician on 11/19/2016. Hence, the H and P is being done on 11/20/2016.) CONSULTANTS: 1. Dr. Ziggy Shields, Infectious Disease. 2. Dr. Zhou Giraldo, vascular surgery. HISTORY OF THE PRESENT ILLNESS: This is a 51-year-old female with past medical history of peripheral artery disease, essential hypertension, type 2 diabetes mellitus and hyperlipidemia who was brought to the hospital electively for worsening right lower extremity infection including the right fourth and fifth toe infection and partial 3rd toe gangrene. The patient has prior history of gangrenous wound to the left lower extremity and consequently she had a left above knee amputation [facility]. The patient also has a history of femoral popliteal angioplasty and anterior tibial and dorsalis pedis artery angioplasty of the right lower extremity to prevent flow limiting stenosis in the past. At the time of evaluation, the patient was complaining of minimal right foot pain. The patient denied any fevers, chills. She denied any dyspnea, diaphoresis, no nausea or vomiting or diarrhea, hematochezia or dysuria. The patient denied any chest pain. PAST MEDICAL HISTORY: Essential hypertension, peripheral artery disease, type 2 diabetes, and hyperlipidemia. PAST SURGICAL HISTORY: Left hip disarticulation, right lower extremity endovascular interventions. HOME MEDICATIONS: 1. Plavix 75 mg p.o. daily. 2. Atorvastatin 10 mg p.o. at bedtime. 3. Lisinopril 10 mg p.o. daily. 4. Aspirin 81 mg p.o. daily. 5. Gabapentin 300 mg p.o. t.i.d. 6. Lantus insulin subcutaneous 5 units subcutaneously at bedtime. 7. Apidra 2 units subcutaneously before meals. ALLERGIES: NO KNOWN DRUG ALLERGIES. SOCIAL HISTORY: The patient lives at home. No history of tobacco, alcohol or illicit drug use. FAMILY HISTORY: Positive for diabetes and essential hypertension. REVIEW OF SYSTEMS: A 12-point review of systems were made and review of systems was negative other than what is mentioned in history of present illness. PHYSICAL EXAMINATION: VITAL SIGNS: Temperature 97.7, pulse rate 78, respiratory rate 18, blood pressure 150/68, oxygen saturation 95% on room air. GENERAL: This is a well-built, well-nourished female lying in bed in no apparent distress. HEENT: Head normocephalic and atraumatic. Eyes: Anicteric sclerae. Conjunctivae clear. ENT: Nasal septum and oral mucosa is moist. NECK: Supple. No JVD noticed. RESPIRATORY: Bilaterally clear to auscultation. No adventitious breath sounds heard. No use of accessory muscles of respiration. CARDIAC: Regular rate and rhythm. S1, S2 heard. ABDOMEN: Soft, nontender and nondistended. Bowel sounds positive in all 4 quadrants. GENITOURINARY: Deferred. EXTREMITIES: Left above knee amputation. Right lower extremity dressing in place. Pedal pulses on the right side are not palpable. NEUROLOGIC: The patient is awake, alert and oriented. Cranial nerves are grossly intact. LABORATORY AND DIAGNOSTIC DATA: WBC 7.9, hemoglobin 10.4, hematocrit 30.7, platelet count 362. Sodium 137, potassium 3.8, chloride 99, carbon dioxide 25, anion gap 15, BUN 16, creatinine 0.42, glucose 233, calcium 9.2. IMPRESSION: This is a 51-year-old female with multiple comorbidities and with evidence of infection of the right 4th and 5th toe and right third toe gangrene, who was electively brought to the hospital for surgical intervention of the right lower extremity. She will be admitted here for further treatment and evaluation. ASSESSMENT AND PLAN: 1. Right lower extremity gangrenous wound with infection of 4th and 5th toe. The patient is planned for incision and drainage of the 4th and 5th toe with possible amputation of the right third toe by vascular surgery. Continue antibiotics as per infectious diseases. Await vascular surgery intervention. 2. Type 2 diabetes mellitus. Hemoglobin A1c 6.5. The patient will be maintained on sliding scale insulin along with Lantus insulin. The patient will also be started on premeal insulin. 3. Essential hypertension. The patient will be maintained on antihypertensives including p.r.n. antihypertensives for any systolic blood pressure readings greater than 160 mmHg. 4. Peripheral vascular disease. The patient will be maintained on antiplatelet therapy. However, this is on hold because of impending surgical intervention. 5. Diabetic neuropathy. The patient will be continued on gabapentin. 6. Normocytic normochromic anemia. The patient's H and H will be monitored closely. An iron panel will be obtained on this patient. Plan. The patient is already admitted to inpatient medical/surgical floor. The patient will be maintained on a carbohydrate controlled diet. The patient will remain a FULL CODE. Activities will be bed rest. The rest of the patient's management will be based on the clinical course, the results of diagnostic studies and input from consultants. Based on the patient's clinical presentation, she most probably requires more than 2 midnights' stay for further management and evaluation of her clinical presentation. The case and management of this patient was fully discussed with Dr. Kaur. LEON KAUR MD, AM/TRACE Conf#: [id number] DID#: [id number] MTDD
[2016-11-20] MEDS ORDERED: FENTAnyl 50 MCG/ML VIAL ONE (17:17)
[2016-11-20] MEDS ORDERED: CEFAZOLIN 1 GM INJ ONE (17:17)
[2016-11-20] MEDS ORDERED: PROPOFOL 20 ML ONE (17:17)
[2016-11-20] MEDS ORDERED: ROPIVACAINE 0.5 % 30 ML VIAL ONE (17:54)
[2016-11-20] MEDS ORDERED: METOCLOPRAMIDE 10 MG INJ ONE (18:25)
[2016-11-20] MEDS ORDERED: DEXAMETHASONE 4 MG/ML 1 ML INJ ONE (18:25)
[2016-11-20] MEDS ORDERED: ONDANSETRON 4 MG INJ ONE (18:25)
[2016-11-20] MEDS ORDERED: PHENYLephrine (100 MCG/ML) 5ML SYG ONE (18:49)
[2016-11-20] MEDS ORDERED: HYDROmorphONE (0.2 MG/ML) 10ML SYG IV PRN ×2 (19:00)
[2016-11-20] MEDS ORDERED: ONDANSETRON 4 MG INJ IV PRN (19:00)
[2016-11-20] MEDS ORDERED: morphine (1 MG/ML) 10ML SYRINGE IV PRN ×2 (19:00)
[2016-11-20] MEDS ORDERED: LABETALOL HCL 20MG INJ IV PRN (19:00)
[2016-11-20] MEDS ORDERED: EPHEDrine SULFATE 50 MG/5 ML SYG IV PRN (19:00)
[2016-11-20] MEDS ORDERED: DIPHENHYDRAMINE 50 MG INJ IV PRN (19:00)
--- NOTE | 2016-11-20 20:16 | OPR ---
DATE OF OPERATION: 11/20/2016 PREOPERATIVE DIAGNOSIS: Right lower extremity third toe gangrene and amputation site gangrene of th e 4th and 5th toes. POSTOPERATIVE DIAGNOSIS: Right lower extremity third toe gangrene and amputation site and gangrene of the 4th and 5th toes. SURGEON: Zhou Giraldo MD ANESTHESIA: Regional block. ESTIMATED BLOOD LOSS: Minimal. COMPLICATIONS: None. HEPARIN: None. INDICATION: This is a 51-year-old female who has had a history of left lower extremity gas gangrene , in which she ended up having a left hip disarticulation. The patient now presents with right lowe r extremity gangrene of the fourth and fifth toes in which she underwent amputation and debridement with our podiatry colleagues. The patient did have endovascular intervention of her right lower ext remity with a balloon angioplasty of her fem-pop segment and anterior tibial and dorsalis pedis, for improvement of her perfusion to the lower extremity. The patient has severe pedal disease and now presents with worsening of her fourth and fifth toe amputation site and worsening of her third toe g angrene. Patient had been informed of the alternatives, risk and benefits. The risks included but were not limited to bleeding, thrombosis, embolization, myocardial infarction, , device malfunc tion, infection, stroke, nephrotoxicity, and the patient has agreed to proceed. OPERATION PERFORMED: 1. Excisional sharp debridement of the right foot wound involving skin, subcutaneous tissue, muscle , tendon, ligament, and bone. The wound measured 5 x 4 x 2 cm. 2. Ray amputation of the right third toe. 3. Amputation of the 4th and 5th metatarsal. 4. Application of xenograft 1.5 g MicroMatrix powder. 5. Application of xenograft 7 x 10 cm 2-layer wound sheath. FINDINGS: Necrotic tissue in the previous fourth and fifth toe amputation site, involving the subcutaneous tis berta, tendon, and bone marrow. Further gangrene of the third toe, involving the metatarsal bone as w ell. DESCRIPTION OF PROCEDURE: The patient was brought into the operating room, placed in supine positio n. The normal bony prominences were padded. Anesthesia team had placed appropriate lines and right lower extremity block was performed. A timeout and appropriate site was marked and confirmed. Perioperative antibiotics were administere d prior to skin incision. Using sharp scissors and a knife, we went ahead and debrided the skin, subcutaneous tissue, and liga ments and tendons that looked necrotic and previous amputation site of the 4th and 5th toes. Once t his was accomplished, we identified the patient still has necrotic metatarsal segments of the fourth and fifth toe which was further debrided to the proximal aspect of the metatarsal of the 4th and 5t h toe. Upon completion of that, the third toe was amputated at the metatarsal. At that point, we w ere able to identify rebleeding within the third, fourth, and fifth toe metatarsal segments. We went ahead and irrigated the wound. There was good bleeding at the base of the stump. At this p oint, we went ahead and applied our xenograft MicroMatrix powder 1.5 grams was applied. This was co smooth with a xenograft 7 x 10 cm 2-layer wound sheath. Upon completion of that, an Adaptic was appl ied and wound VAC was placed. Pressures were set at 150 mmHg continuous high intensity pressu re. The patient tolerated procedure well and was taken to the postanesthesia care unit in stable co ndition. All instruments, sponges, needle counts, and catheters were all correct x2. Dictated By: ZHOU EPPERSON/TRACE Conf#: [id number] DID#: [id number]
[2016-11-20] MEDS ORDERED: POLYMYXIN/BACITRACIN 1L IRRIG ONE (22:10)
[2016-11-20] MEDS: ATORVASTATIN 10 MG TAB PO SCH ×2 (22:49→22:52)
[2016-11-20] MEDS: INSULIN GLARGINE [LANtus] 3 ML PEN SC SCH (22:55)
[2016-11-21] MEDS: ACCU-CHEK XX SCH (02:00)
[2016-11-21 06:13] LABS: ADD SCAN DIFF NO
[2016-11-21 06:28] LABS: HEMATOCRIT 32.9 % (37.0-47.0); HEMOGLOBIN 10.4 g/dl (12.0-16.0); LYMPHOCYTES # 0.9 10^3/ul (0.8-2.9); LYMPHOCYTES % 9.7 % (15.0-51.0); MEAN CORPUSCULAR HEMOGLOBIN 29.6 pg (29.0-33.0); MEAN CORPUSCULAR HGB CONC 31.6 g/dl (32.0-37.0); MEAN CORPUSCULAR VOLUME 93.7 fl (82.0-101.0); MEAN PLATELET VOLUME 10.1 fl (7.4-10.4); MONOCYTE # 0.3 10^3/ul (0.3-0.9); MONOCYTES % 2.6 % (0.0-11.0); NEUTROPHIL # 8.4 10^3/ul (1.6-7.5); NEUTROPHILS % 87.3 % (39.0-77.0); PLATELET COUNT 361 10^3/UL (140-415); RED BLOOD COUNT 3.51 10^6/ul (4.20-5.40); RED CELL DISTRIBUTION WIDTH 13.5 % (11.5-14.5); WHITE BLOOD COUNT 9.6 10^3/ul (4.8-10.8)
[2016-11-21 06:41] LABS: ALBUMIN 3.5 g/dl (3.3-4.9)
[2016-11-21 06:42] LABS: POTASSIUM 3.9 mmol/L (3.5-5.1)
[2016-11-21 06:44] LABS: ALBUMIN/GLOBULIN RATIO 0.87; BILIRUBIN,INDIRECT 0.1 mg/dl (0-1.1); BILIRUBIN,TOTAL 0.1 mg/dl (0.2-1.3); CREATININE 0.45 mg/dl (0.44-1.00); TOTAL PROTEIN 7.5 g/dl (6.1-8.1)
[2016-11-21 06:45] LABS: CALCIUM 8.9 mg/dl (8.4-10.2); CHOL/HDL RATIO 4.4 RATIO; MAGNESIUM 1.9 mg/dl (1.7-2.5); PHOSPHORUS 4.3 mg/dl (2.5-4.9)
[2016-11-21] MEDS: VANCOMYCIN 1 GM in NS 250 ML IVPB SCH ×2 (06:59→17:41)
[2016-11-21 07:14] LABS: THYROID STIMULATING HORMONE 0.297 MIU/L (0.465-4.680)
[2016-11-21 07:33] LABS: IRON 30 ug/dl (35-150)
[2016-11-21 07:42] LABS: TOTAL IRON BINDING CAPACITY 194 ug/dl (241-421)
[2016-11-21 07:45] VITALS: BP 110/65; RESP 16
[2016-11-21] MEDS: HYDROmorphONE 1 MG/ML SYG IV PRN ×2 (07:50→20:47)
[2016-11-21] MEDS: INSULIN ASPART [NOVOLOG] 3 ML PEN SC SCH ×7 (08:23→20:37)
[2016-11-21] MEDS: GABAPENTIN 300 MG CAP PO SCH ×3 (08:25→21:13)
[2016-11-21] MEDS: LISINOPRIL 10 MG TAB PO SCH (08:26)
--- NOTE | 2016-11-21 10:58 | PN ---
Date/Time of Note Date/Time of Note DATE: 11/21/16 TIME: 10:50 Assessment/Plan Lines/Catheters IV Catheter Type (from [facility]): Peripheral IV Assessment/Plan Chief Complaint/Hosp Course -Bilateral lower extremity atherosclerosis with gangrene: It seems the patient has developed a worsening right third toe gangrene and previous amputation site. Patient does have severe pedal disease and perfusion past the forefoot is limited. She is S/P angiogram and intervention in order to increase her infrapopliteal perfusion. Unfortunately, we may be limited with our limb salvage for the patient and she may require further debridements and major amputation. -S/P Right 3rd toe ray amputation, 4&5th toe metatarsal amputation and debridement of stump, application of Acell graft and wound VAC. -Continue with IV antibiotics -Optimize vascular status (BP meds, diet, nutrition, exercise, sugar control, antiplatelets). -Discussed findings, plan and management with the patient, she understands with a certified supervisor reclamation in regards to our limitations of vascular interventions and limb salvage and possibility of further debridements/major amputations -Thank you for allowing us to partake in the care of your patient. Please call with any questions. Problems: Subjective 24 Hr Interval Summary no new vascular events overnight Exam/Review of Systems Vital Signs Vitals Vital Signs Date Time Temp Pulse Resp B/P Pulse Ox O2 Delivery O2 Flow Rate FiO2 11/21/16 07:45 97.4 71 16 110/65 99 11/20/16 15:40 Room Air Intake and Output 11/20/16 11/20/16 11/21/16 15:00 23:00 07:00 Intake Total 300 ml 900 ml 592 ml Output Total 5 ml Balance 300 ml 895 ml 592 ml Exam Free Text/Dictation GENERAL: Alert and oriented x3. PULMONARY: Clear to auscultation bilaterally. CARDIOVASCULAR: S1, S2 present. ABDOMEN: Soft, nontender, nondistended. Bowel sounds positive. EXTREMITIES: Right lower extremity: Palpable femoral pulse, nonpalpable pedal pulse. Motor , sensory intact. Capillary refill 3 seconds. Amputation site with wound vac intact and functional Results Result Diagram: 11/21/16 0448 11/21/16 0448 JOAQUINA MCKEON MD Nov 21, 2016 10:58
[2016-11-21] MEDS: CHOLECALCIFEROL 2,000 UNIT CAP PO SCH (11:53)
[2016-11-21] MEDS: CEFEPIME 1GM/50 ML (PMX) 50 ML IVPB SCH ×2 (11:53→21:13)
--- NOTE | 2016-11-21 12:02 | PN ---
Date/Time of Note Date/Time of Note DATE: 11/21/16 TIME: 11:55 Assessment/Plan VTE Prophylaxis VTE Prophylaxis Intervention: contraindicated Lines/Catheters IV [facility] (from [facility] Peripheral IV Assessment/Plan Chief Complaint/Hosp Course 1. Right lower extremity gangrenous wound with infection of 4th and 5th toe. The patient is S/P incision and drainage of the 4th and 5th toe with amputation of the right third toe by vascular surgery on 11/20/2016. Continue antibiotics as per infectious diseases. 2. Type 2 diabetes mellitus. Hemoglobin A1c 6.5. The patient will be maintained on sliding scale insulin along with Lantus insulin and premeal insulin. 3. Essential hypertension. The patient will be maintained on antihypertensives including p.r.n. antihypertensives for any systolic blood pressure readings greater than 160 mmHg. 4. Peripheral vascular disease. The patient will be maintained on antiplatelet therapy. However, this is on hold because of recent surgical intervention. 5. Diabetic neuropathy. The patient will be continued on gabapentin. 6. Normocytic normochromic anemia. The patient's H and H will be monitored closely. Iron panel showing iron deficiency. Will start the patient on iron supplements. 7. Vitamin D deficiency. Will start the patient on vitamin D supplements. 8. Fluids, electrolytes, and nutrition. Carbohydrate controlled diet. 9. DVT prophylaxis. Chemical DVT prophylaxis to be resumed once cleared by surgery. 10. Gastrointestinal prophylaxis. Histamine 2 receptor blockers. 11. Plan. Continue antibiotics as per infectious diseases. Start iron supplements and vitamin D supplements. Case discussed with Dr. Lee. Problems: Subjective 24 Hr Interval Summary Free Text/Dictation Right lower extremity pain well controlled. Exam/Review of Systems Vital Signs Vitals Vital Signs Date Time Temp Pulse Resp B/P Pulse Ox O2 Delivery O2 Flow Rate FiO2 11/21/16 07:45 97.4 71 16 110/65 99 11/20/16 15:40 Room Air Intake and Output 11/20/16 11/20/16 11/21/16 15:00 23:00 07:00 Intake Total 300 ml 900 ml 592 ml Output Total 5 ml Balance 300 ml 895 ml 592 ml Exam GENERAL: This is a well-built, well-nourished female lying in bed in no apparent distress. HEENT: Head normocephalic and atraumatic. Eyes: Anicteric sclerae. Conjunctivae clear. ENT: Nasal septum and oral mucosa is moist. NECK: Supple. No JVD noticed. RESPIRATORY: Bilaterally clear to auscultation. No adventitious breath sounds heard. No use of accessory muscles of respiration. CARDIAC: Regular rate and rhythm. GASTROINTESTINAL: S1, S2 heard. ABDOMEN: Soft, nontender and nondistended. Bowel sounds positive in all 4 quadrants. GENITOURINARY: Deferred. EXTREMITIES: Left below knee amputation. Right lower extremity dressing in place that is connected to a wound vac. Pedal pulses on the right side are not palpable. NEUROLOGIC: The patient is awake, alert and oriented. Cranial nerves are grossly intact. Results Result Diagram: 11/21/16 0448 11/21/16 0448 Results 24 hrs Laboratory Tests Test 11/20/16 12:12 11/20/16 15:25 11/20/16 16:10 11/20/16 22:47 Bedside Glucose 110 98 168 Serum HCG, Qualitative NEGATIVE Test 11/21/16 04:48 11/21/16 05:13 11/21/16 08:13 11/21/16 11:49 White Blood Count 9.6 # Red Blood Count 3.51 L Hemoglobin 10.4 L Hematocrit 32.9 L Mean Corpuscular Volume 93.7 Mean Corpuscular Hemoglobin 29.6 Mean Corpuscular Hemoglobin Concent 31.6 L Red Cell Distribution Width 13.5 Platelet Count 361 Mean Platelet Volume 10.1 Neutrophils % 87.3 H Lymphocytes % 9.7 L Monocytes % 2.6 Eosinophils % 0.0 Basophils % 0.0 Nucleated Red Blood Cells % 0.0 Neutrophils # 8.4 H Lymphocytes # 0.9 Monocytes # 0.3 Eosinophils # 0.0 Basophils # 0.0 Nucleated Red Blood Cells # 0.0 Sodium Level 139 Potassium Level 3.9 Chloride Level 102 Carbon Dioxide Level 26 Anion Gap 15 Blood Urea Nitrogen 17 Creatinine 0.45 Glucose Level 257 H Hemoglobin A1c 6.5 H Calcium Level 8.9 Phosphorus Level 4.3 Magnesium Level 1.9 Ferritin 376.0 H Total Bilirubin 0.1 L Direct Bilirubin 0.00 Indirect Bilirubin 0.1 Aspartate Amino Transf (AST/SGOT) 23 Alanine Aminotransferase (ALT/SGPT) 25 Alkaline Phosphatase 137 H Total Protein 7.5 Albumin 3.5 Globulin 4.00 H Albumin/Globulin Ratio 0.87 Triglycerides Level 97 Cholesterol Level 175 LDL Cholesterol, Calculated 117 HDL Cholesterol 39 Cholesterol/HDL Ratio 4.4 Thyroid Stimulating Hormone (TSH) 0.297 L Iron Level 30 L Total Iron Binding Capacity 194 L Percent Iron Saturation 15 L Vitamin D 1,25-Dihydroxy < 12.8 L Free Thyroxine 1.41 Vancomycin Level Trough 5.4 L Bedside Glucose 168 168 Medications Medications Current Medications Diagnostic Test (Pha) 1 ea 1 ea 02 XX ; Start 11/20/16 at 02:00 Cefepime HCl 50 ml @ 100 mls/hr Q12 IVPB Last administered on 11/20/16 22:53 ; Admin Dose 100 MLS/HR; Start 11/19/16 at 18:30 Vancomycin HCl (Vancocin) 250 ml @ 125 mls/hr Q12H IVPB Last administered on 06:59; Admin Dose 125 MLS/HR; Start 11/19/16 at 18:00 Oxycodone/ Acetaminophen (Percocet (5/ 325)) 1 tab Q4H PRN PO PAIN Last administered on 11/19/16 19:00; Admin Dose 1 TAB; Start 11/19/16 at 18:30 Atorvastatin Calcium (Lipitor) 10 mg QHS PO Last administered on 11/20/16 22: 52; Admin Dose 10 MG; Start 11/19/16 at 21:00 Gabapentin (Neurontin) 300 mg TID PO Last administered on 11/21/16 08:25; Admin Dose 300 MG; Start 11/19/16 at 21:00 Lisinopril (Zestril) 10 mg DAILY PO Last administered on 11/21/16 08:26; Admin Dose 10 MG; Start 11/20/16 at 09:00 Oxycodone/ Acetaminophen (Percocet (5/ 325)) 2 tab Q4H PRN PO PAIN LEVEL 6-10; Start 11/19/16 at 21:30 Hydromorphone HCl (Dilaudid) 0.5 mg Q4H PRN IV PAIN LEVEL 6-10 Last administered on 11/20/16 06:02; Admin Dose 0.5 MG; Start 11/20/16 at 03:00 Hydromorphone HCl (Dilaudid) 1 mg Q4H PRN IV SEVERE PAIN LEVEL 7-10 Last administered on 11/21/16 07:50; Admin Dose 1 MG; Start 11/20/16 at 03:00 Miscellaneous Information 1 ea NOTE XX ; Start 11/20/16 at 08:00 Glucose (Glutose) 15 gm Q15M PRN PO DECREASED GLUCOSE; Start 11/20/16 at 08:00 Glucose (Glutose) 22.5 gm Q15M PRN PO DECREASED GLUCOSE; Start 11/20/16 at 08: 00 Dextrose (D50w Syringe) 25 ml Q15M PRN IV DECREASED GLUCOSE; Start 11/20/16 at 08:00 Dextrose (D50w Syringe) 50 ml Q15M PRN IV DECREASED GLUCOSE; Start 11/20/16 at 08:00 Glucagon (Glucagen) 1 mg Q15M PRN IM DECREASED GLUCOSE; Start 11/20/16 at 08:00 Glucose (Glutose) 15 gm Q15M PRN BUCCAL DECREASED GLUCOSE; Start 11/20/16 at 08 :00 Hydralazine HCl (Apresoline) 10 mg Q6H PRN IV SBP>160; Start 11/20/16 at 16:30 Insulin Glargine (Lantus) 6 unit DAILY@20 SC Last administered on 11/20/16t 22: 55; Admin Dose 6 UNIT; Start 11/20/16 at 20:00 Cholecalciferol 2000 unit 2,000 unit DAILY PO ; Start 11/21/16 at 11:30 Ferric Sodium Gluconate Complex/ Sodium Chloride (Ferrlecit/NS) 110 ml @ 110 mls/hr Q24H IVPB ; Start 11/21/16 at 13:00; Stop 11/25/16 at 13:59 LEON ESTES NP Nov 21, 2016 12:02
[2016-11-21] MEDS: SOD FERRIC GLUC COMPLX 125 MG in SOD CHLORIDE 0.9% 100 ML IVPB SCH (13:33)
--- NOTE | 2016-11-21 19:45 | CONS ---
Date/Time of Note Date/Time of Note DATE: 11/21/16 TIME: 19:31 Assessment/Plan Assessment/Plan Chief Complaint/Hosp Course ID PROGRESS NOTE CURRENT ABX => #2 Vanco IV + Cefepime 24H INTERVAL SUMMARY * POD #1=>S/P incision and drainage of the 4th and 5th toe with amputation of the right third toe by vascular surgery on 11/20/2016. 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 Right lower extremity gangrene => LIMB SALVAGE PLAN * POD #1=>S/P incision and drainage of the 4th and 5th toe with amputation of the right third toe by vascular surgery on 11/20/2016. 2. PAD -> Bilateral lower extremity atherosclerosis. * s/p RLEXT angiogram/femoral popliteal angioplasty and her anterior tibial and dorsalis pedis artery angioplasty. 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 Diabetes w/complication of severe CV disease and polyneuropathies 5. Hypercholesterolemia. (-)MRSA Nares INVASIVES: PIV, ABX ALLERGY: NKDA CURRENT ABX: DAY #2 Vanco IV + Cefepime ID RECOMMENDATIONS 1. Continue current ABX 2. Observe over the weekend on ABX -> Reassess by ID team next week 3. Check nares for MRSA . Problems: Consultation Date/Type/Reason Admit Date/Time Nov 19, 2016 at 11:38 Initial Consult Date Exam/Review of Systems Vital Signs Vitals Vital Signs Date Time Temp Pulse Resp B/P Pulse Ox O2 Delivery O2 Flow Rate FiO2 11/21/16 07:45 97.4 71 16 110/65 99 11/20/16 15:40 Room Air Intake and Output 11/20/16 11/20/16 11/21/16 15:00 23:00 07:00 Intake Total 300 ml 900 ml 592 ml Output Total 5 ml Balance 300 ml 895 ml 592 ml Results Result Diagram: 11/21/16 0448 11/21/16 0448 Results 24 hrs Laboratory Tests Test 11/20/16 22:47 11/21/16 04:48 11/21/16 05:13 11/21/16 08:13 Bedside Glucose 168 168 White Blood Count 9.6 # Red Blood Count 3.51 L Hemoglobin 10.4 L Hematocrit 32.9 L Mean Corpuscular Volume 93.7 Mean Corpuscular Hemoglobin 29.6 Mean Corpuscular Hemoglobin Concent 31.6 L Red Cell Distribution Width 13.5 Platelet Count 361 Mean Platelet Volume 10.1 Neutrophils % 87.3 H Lymphocytes % 9.7 L Monocytes % 2.6 Eosinophils % 0.0 Basophils % 0.0 Nucleated Red Blood Cells % 0.0 Neutrophils # 8.4 H Lymphocytes # 0.9 Monocytes # 0.3 Eosinophils # 0.0 Basophils # 0.0 Nucleated Red Blood Cells # 0.0 Sodium Level 139 Potassium Level 3.9 Chloride Level 102 Carbon Dioxide Level 26 Anion Gap 15 Blood Urea Nitrogen 17 Creatinine 0.45 Glucose Level 257 H Hemoglobin A1c 6.5 H Calcium Level 8.9 Phosphorus Level 4.3 Magnesium Level 1.9 Ferritin 376.0 H Total Bilirubin 0.1 L Direct Bilirubin 0.00 Indirect Bilirubin 0.1 Aspartate Amino Transf (AST/SGOT) 23 Alanine Aminotransferase (ALT/SGPT) 25 Alkaline Phosphatase 137 H Total Protein 7.5 Albumin 3.5 Globulin 4.00 H Albumin/Globulin Ratio 0.87 Triglycerides Level 97 Cholesterol Level 175 LDL Cholesterol, Calculated 117 HDL Cholesterol 39 Cholesterol/HDL Ratio 4.4 Thyroid Stimulating Hormone (TSH) 0.297 L Iron Level 30 L Total Iron Binding Capacity 194 L Percent Iron Saturation 15 L Vitamin D 1,25-Dihydroxy < 12.8 L Free Thyroxine 1.41 Vancomycin Level Trough 5.4 L Test 11/21/16 11:49 11/21/16 17:38 Bedside Glucose 168 150 Medications Medications Current Medications Diagnostic Test (Pha) 1 ea ea 02 XX ; Start 11/20/16 at 02:00 Cefepime HCl 50 ml @ 100 mls/hr Q12 IVPB Last administered on 11/21/16t 11:53 ; Admin Dose 100 MLS/HR; Start 11/19/16 at 18:30 Vancomycin HCl (Vancocin) 250 ml @ 125 mls/hr Q12H IVPB Last administered on 17:41; Admin Dose 125 MLS/HR; Start 11/19/16 at 18:00 Oxycodone/ Acetaminophen (Percocet (5/ 325)) 1 tab Q4H PRN PO PAIN Last administered on 11/19/16 19:00; Admin Dose 1 TAB; Start 11/19/16 at 18:30 Atorvastatin Calcium (Lipitor) 10 mg QHS PO Last administered on 11/20/16 22: 52; Admin Dose 10 MG; Start 11/19/16 at 21:00 Gabapentin (Neurontin) 300 mg TID PO Last administered on 11/21/16 13:33; Admin Dose 300 MG; Start 11/19/16 at 21:00 Lisinopril (Zestril) 10 mg DAILY PO Last administered on 11/21/16 08:26; Admin Dose 10 MG; Start 11/20/16 at 09:00 Oxycodone/ Acetaminophen (Percocet (5/ 325)) 2 tab Q4H PRN PO PAIN LEVEL 6-10; Start 11/19/16 at 21:30 Hydromorphone HCl (Dilaudid) 0.5 mg Q4H PRN IV PAIN LEVEL 6-10 Last administered on 11/20/16 06:02; Admin Dose 0.5 MG; Start 11/20/16 at 03:00 Hydromorphone HCl (Dilaudid) 1 mg Q4H PRN IV SEVERE PAIN LEVEL 7-10 Last administered on 11/21/16 07:50; Admin Dose 1 MG; Start 11/20/16 at 03:00 Miscellaneous Information 1 ea NOTE XX ; Start 11/20/16 at 08:00 Glucose (Glutose) 15 gm Q15M PRN PO DECREASED GLUCOSE; Start 11/20/16 at 08:00 Glucose (Glutose) 22.5 gm Q15M PRN PO DECREASED GLUCOSE; Start 11/20/16 at 08: 00 Dextrose (D50w Syringe) 25 ml Q15M PRN IV DECREASED GLUCOSE; Start 11/20/16 at 08:00 Dextrose (D50w Syringe) 50 ml Q15M PRN IV DECREASED GLUCOSE; Start 11/20/16 at 08:00 Glucagon (Glucagen) 1 mg Q15M PRN IM DECREASED GLUCOSE; Start 11/20/16 at 08:00 Glucose (Glutose) 15 gm Q15M PRN BUCCAL DECREASED GLUCOSE; Start 11/20/16 at 08 :00 Hydralazine HCl (Apresoline) 10 mg Q6H PRN IV SBP>160; Start 11/20/16 at 16:30 Insulin Glargine (Lantus) 6 unit DAILY@20 SC Last administered on 11/20/16 22: 55; Admin Dose 6 UNIT; Start 11/20/16 at 20:00 Cholecalciferol 2000 unit 2,000 unit DAILY PO Last administered on 11/21/16 11 :53; Admin Dose 2,000 UNIT; Start 11/21/16 at 11:30 Ferric Sodium Gluconate Complex/ Sodium Chloride (Ferrlecit/NS) 110 ml @ 110 mls/hr Q24H IVPB Last administered on 11/21/16 13:33; Admin Dose 110 MLS/HR; Start 11/21/16 at 13:00; Stop 11/25/16 at 13:59 Famotidine (Pepcid) 20 mg BID PO ; Start 11/21/16 at 21:00 Miscellaneous Information (*Rx Drug Level Order Reminder*) VANCOMYCIN TROUGH AT 1700 ONCE ONCE XX ; Start 11/22/16 at 17:00; Stop 11/22/16 at 17:01 MICHELLE SOLORZANO NP Nov 21, 2016 19:41
[2016-11-21 20:00] VITALS: BP 113/55; RESP 19
[2016-11-21] MEDS: INSULIN GLARGINE [LANtus] 3 ML PEN SC SCH (20:42)
[2016-11-21] MEDS: FAMOTIDINE 20 MG TAB PO SCH (21:13)
[2016-11-21] MEDS: OXYCODONE/ACETAMINOPHEN (5/325) TAB PO PRN (21:34)
[2016-11-21] MEDS ORDERED: HYDROmorphONE 1 MG/ML SYG IV STA (23:34)
[2016-11-22] MEDS ORDERED: GABAPENTIN 300 MG CAP PO ONE
[2016-11-22] MEDS: ACCU-CHEK XX SCH (01:41)
[2016-11-22] MEDS: HYDROmorphONE 1 MG/ML SYG IV PRN ×5 (04:24→21:35)
[2016-11-22] MEDS: VANCOMYCIN 1 GM in NS 250 ML IVPB SCH ×2 (05:24→18:48)
[2016-11-22] MEDS: OXYCODONE/ACETAMINOPHEN (5/325) TAB PO PRN ×2 (05:29→20:17)
[2016-11-22 05:58] LABS: ADD SCAN DIFF NO
[2016-11-22 06:12] LABS: CALCIUM 8.7 mg/dl (8.4-10.2); CREATININE 0.38 mg/dl (0.44-1.00); POTASSIUM 3.9 mmol/L (3.5-5.1)
[2016-11-22 07:13] LABS: MAGNESIUM 1.8 mg/dl (1.7-2.5); PHOSPHORUS 3.9 mg/dl (2.5-4.9)
[2016-11-22] MEDS: INSULIN ASPART [NOVOLOG] 3 ML PEN SC SCH ×7 (08:00→20:11)
[2016-11-22] MEDS: GABAPENTIN 300 MG CAP PO SCH ×3 (08:11→20:11)
[2016-11-22] MEDS: CHOLECALCIFEROL 2,000 UNIT CAP PO SCH (08:11)
[2016-11-22] MEDS: FAMOTIDINE 20 MG TAB PO SCH ×2 (08:12→20:11)
[2016-11-22] MEDS: CEFEPIME 1GM/50 ML (PMX) 50 ML IVPB SCH ×3 (08:22→21:35)
[2016-11-22] MEDS: LISINOPRIL 10 MG TAB PO SCH (08:29)
[2016-11-22 08:41] VITALS: BP 99/50; RESP 18
[2016-11-22 09:40] LABS: BASOPHILS % 0.3 % (0.0-2.0); EOSINOPHILS # 0.2 10^3/ul (0.0-0.5); EOSINOPHILS % 2.3 % (0.0-7.0); HEMATOCRIT 30.6 % (37.0-47.0); HEMOGLOBIN 9.8 g/dl (12.0-16.0); LYMPHOCYTES # 2.1 10^3/ul (0.8-2.9); MEAN CORPUSCULAR HEMOGLOBIN 30.3 pg (29.0-33.0); MEAN CORPUSCULAR VOLUME 94.7 fl (82.0-101.0); MEAN PLATELET VOLUME 10.5 fl (7.4-10.4); MONOCYTE # 0.6 10^3/ul (0.3-0.9); MONOCYTES % 8.4 % (0.0-11.0); NEUTROPHIL # 4.3 10^3/ul (1.6-7.5); NEUTROPHILS % 59.6 % (39.0-77.0); PLATELET COUNT 342 10^3/UL (140-415); RED BLOOD COUNT 3.23 10^6/ul (4.20-5.40); RED CELL DISTRIBUTION WIDTH 13.6 % (11.5-14.5); WHITE BLOOD COUNT 7.2 10^3/ul (4.8-10.8)
--- NOTE | 2016-11-22 10:54 | PN ---
Date/Time of Note Date/Time of Note DATE: 11/22/16 TIME: 10:53 Assessment/Plan VTE Prophylaxis VTE Prophylaxis Intervention: contraindicated Lines/Catheters IV [facility] Type (from [facility]): [facility] Assessment/Plan Chief Complaint/Hosp Course 1. Right lower extremity gangrenous wound with infection of 4th and 5th toe. The patient is S/P incision and drainage of the 4th and 5th toe with amputation of the right third toe by vascular surgery on 11/20/2016. Continue antibiotics as per infectious diseases. 2. Type 2 diabetes mellitus. Hemoglobin A1c 6.5. The patient will be maintained on sliding scale insulin along with Lantus insulin and premeal insulin. 3. Essential hypertension. The patient will be maintained on antihypertensives including p.r.n. antihypertensives for any systolic blood pressure readings greater than 160 mmHg. 4. Peripheral vascular disease. The patient will be maintained on antiplatelet therapy. However, this is on hold because of recent surgical intervention. 5. Diabetic neuropathy. The patient will be continued on gabapentin. 6. Normocytic normochromic anemia. The patient's H and H will be monitored closely. Iron panel showing iron deficiency. Continue iron supplements. 7. Vitamin D deficiency. Continue vitamin D supplements. 8. Fluids, electrolytes, and nutrition. Carbohydrate controlled diet. 9. DVT prophylaxis. Chemical DVT prophylaxis to be resumed once cleared by surgery. 10. Gastrointestinal prophylaxis. Histamine 2 receptor blockers. 11. Plan. Continue antibiotics as per infectious diseases. Case discussed with Dr. Lee. Problems: Subjective 24 Hr Interval Summary Free Text/Dictation Denies any pain. Blood sugars well controlled. Exam/Review of Systems Vital Signs Vitals Vital Signs Date Time Temp Pulse Resp B/P Pulse Ox O2 Delivery O2 Flow Rate FiO2 11/22/16 08:41 98.4 57 18 99/50 97 11/20/16 20:00 Room Air 11/20/16 19:10 2.0 Intake and Output 11/21/16 11/21/16 11/22/16 15:00 23:00 07:00 Intake Total 410 ml 970 ml 250 ml Balance 410 ml 970 ml 250 ml Exam GENERAL: This is a well-built, well-nourished female lying in bed in no apparent distress. HEENT: Head normocephalic and atraumatic. Eyes: Anicteric sclerae. Conjunctivae clear. ENT: Nasal septum and oral mucosa is moist. NECK: Supple. No JVD noticed. RESPIRATORY: Bilaterally clear to auscultation. No adventitious breath sounds heard. No use of accessory muscles of respiration. CARDIAC: Regular rate and rhythm. GASTROINTESTINAL: S1, S2 heard. ABDOMEN: Soft, nontender and nondistended. Bowel sounds positive in all 4 quadrants. GENITOURINARY: Deferred. EXTREMITIES: Left below knee amputation. Right lower extremity dressing in place that is connected to a wound vac. Pedal pulses on the right side are not palpable. NEUROLOGIC: The patient is awake, alert and oriented. Cranial nerves are grossly intact. Results Result Diagram: 11/22/16 0459 11/22/16 0459 Results 24 hrs Laboratory Tests Test 11/21/16 11:49 11/21/16 17:38 11/21/16 20:37 11/22/16 04:59 Bedside Glucose 168 150 178 White Blood Count 7.2 # Red Blood Count 3.23 L Hemoglobin 9.8 L Hematocrit 30.6 L Mean Corpuscular Volume 94.7 Mean Corpuscular Hemoglobin 30.3 Mean Corpuscular Hemoglobin Concent 32.0 Red Cell Distribution Width 13.6 Platelet Count 342 Mean Platelet Volume 10.5 H Neutrophils % 59.6 Lymphocytes % 29.0 Monocytes % 8.4 Eosinophils % 2.3 Basophils % 0.3 Nucleated Red Blood Cells % 0.0 Neutrophils # 4.3 Lymphocytes # 2.1 Monocytes # 0.6 Eosinophils # 0.2 Basophils # 0.0 Nucleated Red Blood Cells # 0.0 Sodium Level 137 Potassium Level 3.9 Chloride Level 106 Carbon Dioxide Level 28 Anion Gap 7 #L Blood Urea Nitrogen 12 Creatinine 0.38 L Glucose Level 88 # Calcium Level 8.7 Phosphorus Level 3.9 Magnesium Level 1.8 Test 11/22/16 08:07 Bedside Glucose 77 Medications Medications Current Medications Diagnostic Test (Pha) 1 ea 1 ea 02 XX ; Start 11/20/16 at 02:00 Cefepime HCl 50 ml @ 100 mls/hr Q12 IVPB Last administered on 11/22/16 08:22 ; Admin Dose 100 MLS/HR; Start 11/19/16 at 18:30 Vancomycin HCl (Vancocin) 250 ml @ 125 mls/hr Q12H IVPB Last administered on 05:24; Admin Dose 125 MLS/HR; Start 11/19/16 at 18:00 Oxycodone/ Acetaminophen (Percocet (5/ 325)) 1 tab Q4H PRN PO PAIN Last administered on 11/19/16 19:00; Admin Dose 1 TAB; Start 11/19/16 at 18:30 Atorvastatin Calcium (Lipitor) 10 mg QHS PO Last administered on 11/20/16 22: 52; Admin Dose 10 MG; Start 11/19/16 at 21:00 Gabapentin (Neurontin) 300 mg TID PO Last administered on 11/22/16 08:11; Admin Dose 300 MG; Start 11/19/16 at 21:00 Lisinopril (Zestril) 10 mg DAILY PO Last administered on 11/21/16 08:26; Admin Dose 10 MG; Start 11/20/16 at 09:00 Oxycodone/ Acetaminophen (Percocet (5/ 325)) 2 tab Q4H PRN PO PAIN LEVEL 6-10 Last administered on 11/22/16 05:29; Admin Dose 2 TAB; Start 11/19/16 at 21:30 Hydromorphone HCl (Dilaudid) 0.5 mg Q4H PRN IV PAIN LEVEL 6-10 Last administered on 11/20/16 06:02; Admin Dose 0.5 MG; Start 11/20/16 at 03:00 Hydromorphone HCl (Dilaudid) 1 mg Q4H PRN IV SEVERE PAIN LEVEL 7-10 Last administered on 11/22/16 08:28; Admin Dose 1 MG; Start 11/20/16 at 03:00 Miscellaneous Information 1 ea NOTE XX ; Start 11/20/16 at 08:00 Glucose (Glutose) 15 gm Q15M PRN PO DECREASED GLUCOSE; Start 11/20/16 at 08:00 Glucose (Glutose) 22.5 gm Q15M PRN PO DECREASED GLUCOSE; Start 11/20/16 at 08: 00 Dextrose (D50w Syringe) 25 ml Q15M PRN IV DECREASED GLUCOSE; Start 11/20/16 at 08:00 Dextrose (D50w Syringe) 50 ml Q15M PRN IV DECREASED GLUCOSE; Start 11/20/16 at 08:00 Glucagon (Glucagen) 1 mg Q15M PRN IM DECREASED GLUCOSE; Start 11/20/16 at 08:00 Glucose (Glutose) 15 gm Q15M PRN BUCCAL DECREASED GLUCOSE; Start 11/20/16 at 08 :00 Hydralazine HCl (Apresoline) 10 mg Q6H PRN IV SBP>160; Start 11/20/16 at 16:30 Insulin Glargine (Lantus) 6 unit DAILY@20 SC Last administered on 11/21/16 20: 42; Admin Dose 6 UNIT; Start 11/20/16 at 20:00 Cholecalciferol 2000 unit 2,000 unit DAILY PO Last administered on 11/22/16 08 :11; Admin Dose 2,000 UNIT; Start 11/21/16 at 11:30 Ferric Sodium Gluconate Complex/ Sodium Chloride (Ferrlecit/NS) 110 ml @ 110 mls/hr Q24H IVPB Last administered on 11/21/16 13:33; Admin Dose 110 MLS/HR; Start 11/21/16 at 13:00; Stop 11/25/16 at 13:59 Famotidine (Pepcid) 20 mg BID PO Last administered on 11/22/16 08:12; Admin Dose 20 MG; Start 11/21/16 at 21:00 Miscellaneous Information (*Rx Drug Level Order Reminder*) VANCOMYCIN TROUGH AT 1700 ONCE ONCE XX ; Start 11/22/16 at 17:00; Stop 11/22/16 at 17:01 LEON ESTES NP Nov 22, 2016 10:54
[2016-11-22] MEDS: SOD FERRIC GLUC COMPLX 125 MG in SOD CHLORIDE 0.9% 100 ML IVPB SCH (12:17)
[2016-11-22] MEDS: CLOPIDOGREL 75 MG TAB PO SCH (12:26)
[2016-11-22] MEDS ORDERED: ASPIRIN 81 MG TAB PO ONE (12:30)
--- NOTE | 2016-11-22 14:35 | CONS ---
Date/Time of Note Date/Time of Note DATE: 11/22/16 TIME: 14:32 Assessment/Plan Assessment/Plan Chief Complaint/Hosp Course ID PROGRESS NOTE CURRENT ABX => #3 Vanco IV + Cefepime 24H INTERVAL SUMMARY * POD #2=>S/P incision and drainage of the 4th and 5th toe with amputation of the right third toe by vascular surgery on 11/20/2016. 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 Right lower extremity gangrene => LIMB SALVAGE PLAN * POD #2=>S/P incision and drainage of the 4th and 5th toe with amputation of the right third toe by vascular surgery on 11/20/2016. 2. PAD -> Bilateral lower extremity atherosclerosis. * s/p RLEXT angiogram/femoral popliteal angioplasty and her anterior tibial and dorsalis pedis artery angioplasty. 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 Diabetes w/complication of severe CV disease and polyneuropathies 5. Hypercholesterolemia. (-)MRSA Nares INVASIVES: PIV, ABX ALLERGY: NKDA CURRENT ABX: DAY #3 Vanco IV + Cefepime ID RECOMMENDATIONS 1. Continue current ABX 2. Observe over the weekend on ABX -> Reassess by ID team next week 3. Check nares for MRSA . Problems: Consultation Date/Type/Reason Admit Date/Time Nov 19, 2016 at 11:38 Exam/Review of Systems Vital Signs Vitals Vital Signs Date Time Temp Pulse Resp B/P Pulse Ox O2 Delivery O2 Flow Rate FiO2 11/22/16 08:41 98.4 57 18 99/50 97 11/20/16 20:00 Room Air 11/20/16 19:10 2.0 Intake and Output 11/21/16 11/21/16 11/22/16 15:00 23:00 07:00 Intake Total 410 ml 970 ml 250 ml Balance 410 ml 970 ml 250 ml Results Result Diagram: 11/22/16 0459 11/22/16 0459 Results 24 hrs Laboratory Tests Test 11/21/16 17:38 11/21/16 20:37 11/22/16 04:59 11/22/16 08:07 Bedside Glucose 150 178 77 White Blood Count 7.2 # Red Blood Count 3.23 L Hemoglobin 9.8 L Hematocrit 30.6 L Mean Corpuscular Volume 94.7 Mean Corpuscular Hemoglobin 30.3 Mean Corpuscular Hemoglobin Concent 32.0 Red Cell Distribution Width 13.6 Platelet Count 342 Mean Platelet Volume 10.5 H Neutrophils % 59.6 Lymphocytes % 29.0 Monocytes % 8.4 Eosinophils % 2.3 Basophils % 0.3 Nucleated Red Blood Cells % 0.0 Neutrophils # 4.3 Lymphocytes # 2.1 Monocytes # 0.6 Eosinophils # 0.2 Basophils # 0.0 Nucleated Red Blood Cells # 0.0 Sodium Level 137 Potassium Level 3.9 Chloride Level 106 Carbon Dioxide Level 28 Anion Gap 7 #L Blood Urea Nitrogen 12 Creatinine 0.38 L Glucose Level 88 # Calcium Level 8.7 Phosphorus Level 3.9 Magnesium Level 1.8 Test 11/22/16 12:04 Bedside Glucose 101 Medications Medications Current Medications Diagnostic Test (Pha) 1 ea 1 ea 02 XX ; Start 11/20/16 at 02:00 Cefepime HCl 50 ml @ 100 mls/hr Q12 IVPB Last administered on 11/22/16 08:22 ; Admin Dose 100 MLS/HR; Start 11/19/16 at 18:30 Vancomycin HCl (Vancocin) 250 ml @ 125 mls/hr Q12H IVPB Last administered on 05:24; Admin Dose 125 MLS/HR; Start 11/19/16 at 18:00 Oxycodone/ Acetaminophen (Percocet (5/ 325)) 1 tab Q4H PRN PO PAIN Last administered on 11/19/16 19:00; Admin Dose 1 TAB; Start 11/19/16 at 18:30 Atorvastatin Calcium (Lipitor) 10 mg QHS PO Last administered on 11/20/16 22: 52; Admin Dose 10 MG; Start 11/19/16 at 21:00 Gabapentin (Neurontin) 300 mg TID PO Last administered on 11/22/16 12:17; Admin Dose 300 MG; Start 11/19/16 at 21:00 Lisinopril (Zestril) 10 mg DAILY PO Last administered on 11/21/16 08:26; Admin Dose 10 MG; Start 11/20/16 at 09:00 Oxycodone/ Acetaminophen (Percocet (5/ 325)) 2 tab Q4H PRN PO PAIN LEVEL 6-10 Last administered on 11/22/16 05:29; Admin Dose 2 TAB; Start 11/19/16 at 21:30 Hydromorphone HCl (Dilaudid) 0.5 mg Q4H PRN IV PAIN LEVEL 6-10 Last administered on 11/20/16 06:02; Admin Dose 0.5 MG; Start 11/20/16 at 03:00 Hydromorphone HCl (Dilaudid) 1 mg Q4H PRN IV SEVERE PAIN LEVEL 7-10 Last administered on 11/22/16 13:06; Admin Dose 1 MG; Start 11/20/16 at 03:00 Miscellaneous Information 1 ea NOTE XX ; Start 11/20/16 at 08:00 Glucose (Glutose) 15 gm Q15M PRN PO DECREASED GLUCOSE; Start 11/20/16 at 08:00 Glucose (Glutose) 22.5 gm Q15M PRN PO DECREASED GLUCOSE; Start 11/20/16 at 08: 00 Dextrose (D50w Syringe) 25 ml Q15M PRN IV DECREASED GLUCOSE; Start 11/20/16 at 08:00 Dextrose (D50w Syringe) 50 ml Q15M PRN IV DECREASED GLUCOSE; Start 11/20/16 at 08:00 Glucagon (Glucagen) 1 mg Q15M PRN IM DECREASED GLUCOSE; Start 11/20/16 at 08:00 Glucose (Glutose) 15 gm Q15M PRN BUCCAL DECREASED GLUCOSE; Start 11/20/16 at 08 :00 Hydralazine HCl (Apresoline) 10 mg Q6H PRN IV SBP>160; Start 11/20/16 at 16:30 Insulin Glargine (Lantus) 6 unit DAILY@20 SC Last administered on 11/21/16 20: 42; Admin Dose 6 UNIT; Start 11/20/16 at 20:00 Cholecalciferol 2000 unit 2,000 unit DAILY PO Last administered on 11/22/16 08 :11; Admin Dose 2,000 UNIT; Start 11/21/16 at 11:30 Ferric Sodium Gluconate Complex/ Sodium Chloride (Ferrlecit/NS) 110 ml @ 110 mls/hr Q24H IVPB Last administered on 11/22/16 12:17; Admin Dose 110 MLS/HR; Start 11/21/16 at 13:00; Stop 11/25/16 at 13:59 Famotidine (Pepcid) 20 mg BID PO Last administered on 11/22/16 08:12; Admin Dose 20 MG; Start 11/21/16 at 21:00 Miscellaneous Information (*Rx Drug Level Order Reminder*) VANCOMYCIN TROUGH AT 1700 ONCE ONCE XX ; Start 11/22/16 at 17:00; Stop 11/22/16 at 17:01 Clopidogrel Bisulfate (plaVIX) 75 mg DAILY PO Last administered on 11/22/16 12 :26; Admin Dose 75 MG; Start 11/22/16 at 12:30 MICHELLE SOLORZANO NP Nov 22, 2016 14:35
[2016-11-22] MEDS: INSULIN GLARGINE [LANtus] 3 ML PEN SC SCH (20:10)
[2016-11-22] MEDS: ATORVASTATIN 10 MG TAB PO SCH (20:11)
[2016-11-22 21:02] VITALS: BP 149/70; RESP 21
[2016-11-23] MEDS: HYDROmorphONE 1 MG/ML SYG IV PRN ×6 (00:41→23:38)
[2016-11-23] MEDS: ACCU-CHEK XX SCH (02:00)
[2016-11-23] MEDS: OXYCODONE/ACETAMINOPHEN (5/325) TAB PO PRN ×4 (04:04→21:55)
[2016-11-23] MEDS: VANCOMYCIN 1 GM in NS 250 ML IVPB SCH ×2 (05:24→17:29)
[2016-11-23] MEDS: INSULIN ASPART [NOVOLOG] 3 ML PEN SC SCH ×7 (08:00→20:47)
[2016-11-23 08:12] VITALS: BP 123/62; RESP 16
[2016-11-23] MEDS: CLOPIDOGREL 75 MG TAB PO SCH (08:16)
[2016-11-23] MEDS: CHOLECALCIFEROL 2,000 UNIT CAP PO SCH (08:16)
[2016-11-23] MEDS: GABAPENTIN 300 MG CAP PO SCH ×3 (08:16→20:47)
[2016-11-23] MEDS: LISINOPRIL 10 MG TAB PO SCH (08:16)
[2016-11-23] MEDS: FAMOTIDINE 20 MG TAB PO SCH ×2 (08:16→20:47)
[2016-11-23] MEDS: CEFEPIME 1GM/50 ML (PMX) 50 ML IVPB SCH ×2 (08:18→20:52)
[2016-11-23] MEDS: SOD FERRIC GLUC COMPLX 125 MG in SOD CHLORIDE 0.9% 100 ML IVPB SCH (12:16)
--- NOTE | 2016-11-23 14:20 | PN ---
Date/Time of Note Date/Time of Note DATE: 11/23/16 TIME: 14:17 Assessment/Plan Lines/Catheters IV Catheter Type (from [facility]): Saline Lock Assessment/Plan Chief Complaint/Hosp Course -Bilateral lower extremity atherosclerosis with gangrene: It seems the patient has developed a worsening right third toe gangrene and previous amputation site. Patient does have severe pedal disease and perfusion past the forefoot is limited. She is S/P angiogram and intervention in order to increase her infrapopliteal perfusion. Unfortunately, we may be limited with our limb salvage for the patient and she may require further debridements and major amputation. -S/P Right 3rd toe ray amputation, 4&5th toe metatarsal amputation and debridement of stump, application of Acell graft and wound VAC. -Vac will be removed by Dr. Perez on wed and evaluation of the wound. May require further debridements -Continue with IV antibiotics -Optimize vascular status (BP meds, diet, nutrition, exercise, sugar control, antiplatelets). 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 Patient wants everything to be done to salvage her limb -Thank you for allowing us to partake in the care of your patient. Please call with any questions. Problems: Subjective 24 Hr Interval Summary some discomfort of the amputation site Exam/Review of Systems Vital Signs Vitals Vital Signs Date Time Temp Pulse Resp B/P Pulse Ox O2 Delivery O2 Flow Rate FiO2 11/23/16 08:12 98.1 63 16 123/62 99 11/20/16 20:00 Room Air 11/20/16 19:10 2.0 Intake and Output 11/22/16 11/22/16 11/23/16 15:00 23:00 07:00 Intake Total 410 ml 1140 ml 600 ml Output Total 1800 ml Balance 410 ml -660 ml 600 ml Exam Free Text/Dictation GENERAL: Alert and oriented x3. PULMONARY: Clear to auscultation bilaterally. CARDIOVASCULAR: S1, S2 present. ABDOMEN: Soft, nontender, nondistended. Bowel sounds positive. EXTREMITIES: Right lower extremity: Palpable femoral pulse, nonpalpable pedal pulse. Motor , sensory intact. Capillary refill 3 seconds. Amputation site with wound vac intact and functional, incisional tenderness Results Result Diagram: 4/23/17 0459 11/22/16 0459 JOAQUINA MCKEON MD Nov 23, 2016 14:20
--- NOTE | 2016-11-23 14:24 | PN ---
Date/Time of Note Date/Time of Note DATE: 11/23/16 TIME: 14:14 Assessment/Plan VTE Prophylaxis VTE Prophylaxis Intervention: other Lines/Catheters IV Catheter Type (from Nrsg): Saline Lock Assessment/Plan Assessment/Plan 1. Right lower extremity gangrenous wound with infection of 4th and 5th toe. The patient is S/P incision and drainage of the 4th and 5th toe with amputation of the right third toe by vascular surgery on 11/20/2016. on vanco/cefepime and wound vac 2. Type 2 diabetes mellitus. Hemoglobin A1c 6.5. The patient will be maintained on sliding scale insulin along with Lantus insulin and premeal insulin. 3. Essential hypertension. controlled 4. Peripheral vascular disease. 5. Diabetic neuropathy. The patient will be continued on gabapentin. 6. Normocytic normochromic anemia. The patient's H and H will be monitored closely. Iron panel showing iron deficiency. Continue iron supplements. 7. Vitamin D deficiency. Continue vitamin D supplements. 8. DVT prophylaxis. Chemical DVT prophylaxis to be resumed once cleared by surgery. Exam/Review of Systems Vital Signs Vitals Vital Signs Date Time Temp Pulse Resp B/P Pulse Ox O2 Delivery O2 Flow Rate FiO2 11/23/16 08:12 98.1 63 16 123/62 99 11/20/16 20:00 Room Air 11/20/16 19:10 2.0 Intake and Output 11/22/16 11/22/16 11/23/16 15:00 23:00 07:00 Intake Total 410 ml 1140 ml 600 ml Output Total 1800 ml Balance 410 ml -660 ml 600 ml Exam Constitutional: alert, oriented, well developed Psych: nl mood/affect, no complaints Head: atraumatic, normocephalic Eyes: EOMI, nl conjunctiva, nl lids ENMT: nl external ears & nose, nl lips & teeth, nl nasal mucosa & septum Neck: non-tender, supple Respiratory: clear to auscultation, normal air movement, No congested cough, No crackles/rales, No diminished breath sounds, No intercostal retraction, No labored breathing, No other, No respirations, No tactile fremitus, No wheezing Cardiovascular: nl pulses, regular rate and rhythm, No S3, No S4, No bruits, No diastolic murmur, No edema, No gallop, No irregular rhythm, No jugular venous distention (JVD), No murmurs/extra sounds, No other, No rub, No systolic murmur Gastrointestinal: nl liver, spleen, non-tender, soft, No ascites, No bowel sounds, No distended, No firm, No hepatomegaly, No mass , No other, No rebound or guarding, No splenomegaly, No surgical scars, No tender Extremities: other (s/p surgery on right foot with toe amputation) Neurological: MANAGER ORDER II-XII intact, nl mental status, nl speech, nl strength Results Result Diagram: 11/22/169 11/22/16 0459 Results 24 hrs Laboratory Tests Test 11/22/16 17:04 11/22/16 17:32 11/22/16 20:08 11/23/16 08:03 Vancomycin Level Trough 13.3 Bedside Glucose 142 154 112 Test 11/23/16 12:12 Bedside Glucose 164 Medications Medications Current Medications Diagnostic Test (Pha) 1 ea 1 ea 02 XX ; Start 11/20/16 at 02:00 Cefepime HCl 50 ml @ 100 mls/hr Q12 IVPB Last administered on 11/23/16 08:18 ; Admin Dose 100 MLS/HR; Start 11/19/16 at 18:30 Vancomycin HCl (Vancocin) 250 ml @ 125 mls/hr Q12H IVPB Last administered on 05:24; Admin Dose 125 MLS/HR; Start 11/19/16 at 18:00 Oxycodone/ Acetaminophen (Percocet (5/ 325)) 1 tab Q4H PRN PO PAIN Last administered on 11/22/16 20:17; Admin Dose 1 TAB; Start 11/19/16 at 18:30 Atorvastatin Calcium (Lipitor) 10 mg QHS PO Last administered on 11/22/16 20: 11; Admin Dose 10 MG; Start 11/19/16 at 21:00 Gabapentin (Neurontin) 300 mg TID PO Last administered on 11/23/16 12:32; Admin Dose 300 MG; Start 11/19/16 at 21:00 Lisinopril (Zestril) 10 mg DAILY PO Last administered on 11/23/16 08:16; Admin Dose 10 MG; Start 11/20/16 at 09:00 Oxycodone/ Acetaminophen (Percocet (5/ 325)) 2 tab Q4H PRN PO PAIN LEVEL 6-10 Last administered on 11/23/16 13:15; Admin Dose 2 TAB; Start 11/19/16 at 21:30 Hydromorphone HCl (Dilaudid) 0.5 mg Q4H PRN IV PAIN LEVEL 6-10 Last administered on 11/23/16 00:41; Admin Dose 0.5 MG; Start 11/20/16 at 03:00 Hydromorphone HCl (Dilaudid) 1 mg Q4H PRN IV SEVERE PAIN LEVEL 7-10 Last administered on 11/23/16 10:21; Admin Dose 1 MG; Start 11/20/16 at 03:00 Miscellaneous Information 1 ea NOTE XX ; Start 11/20/16 at 08:00 Glucose (Glutose) 15 gm Q15M PRN PO DECREASED GLUCOSE; Start 11/20/16 at 08:00 Glucose (Glutose) 22.5 gm Q15M PRN PO DECREASED GLUCOSE; Start 11/20/16 at 08: 00 Dextrose (D50w Syringe) 25 ml Q15M PRN IV DECREASED GLUCOSE; Start 11/20/16 at 08:00 Dextrose (D50w Syringe) 50 ml Q15M PRN IV DECREASED GLUCOSE; Start 11/20/16 at 08:00 Glucagon (Glucagen) 1 mg Q15M PRN IM DECREASED GLUCOSE; Start 11/20/16 at 08:00 Glucose (Glutose) 15 gm Q15M PRN BUCCAL DECREASED GLUCOSE; Start 11/20/16 at 08 :00 Hydralazine HCl (Apresoline) 10 mg Q6H PRN IV SBP>160; Start 11/20/16 at 16:30 Insulin Glargine (Lantus) 6 unit DAILY@20 SC Last administered on 11/22/16 20: 10; Admin Dose 6 UNIT; Start 11/20/16 at 20:00 Cholecalciferol 2000 unit 2,000 unit DAILY PO Last administered on 11/23/16 08 :16; Admin Dose 2,000 UNIT; Start 11/21/16 at 11:30 Ferric Sodium Gluconate Complex/ Sodium Chloride (Ferrlecit/NS) 110 ml @ 110 mls/hr Q24H IVPB Last administered on 11/23/16 12:16; Admin Dose 110 MLS/HR; Start 11/21/16 at 13:00; Stop 11/25/16 at 13:59 Famotidine (Pepcid) 20 mg BID PO Last administered on 11/23/16 08:16; Admin Dose 20 MG; Start 11/21/16 at 21:00 Clopidogrel Bisulfate (plaVIX) 75 mg DAILY PO Last administered on 11/23/16 08 :16; Admin Dose 75 MG; Start 11/22/16 at 12:30 BI VALLEJO MD Nov 23, 2016 14:23
[2016-11-23 19:47] VITALS: BP 129/59; RESP 14
--- NOTE | 2016-11-23 19:53 | CONS ---
Date/Time of Note Date/Time of Note DATE: 11/23/16 TIME: 19:49 Assessment/Plan Assessment/Plan Chief Complaint/Hosp Course ID PROGRESS NOTE CURRENT ABX => #4 Vanco IV + Cefepime 24H INTERVAL SUMMARY => POD #3=>S/P incision and drainage of the 4th and 5th toe with amputation of the right third toe by vascular surgery on 11/20/2016. 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 Right lower extremity gangrene => LIMB SALVAGE PLAN * POD #2=>S/P incision and drainage of the 4th and 5th toe with amputation of the right third toe by vascular surgery on 11/20/2016. 2. PAD -> Bilateral lower extremity atherosclerosis. * s/p RLEXT angiogram/femoral popliteal angioplasty and her anterior tibial and dorsalis pedis artery angioplasty. 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 Diabetes w/complication of severe CV disease and polyneuropathies 5. Hypercholesterolemia. (-)MRSA Nares INVASIVES: PIV, ABX ALLERGY: NKDA CURRENT ABX: DAY #3 Vanco IV + Cefepime + FLagyl ID RECOMMENDATIONS 1. Continue current ABX 2. Flagyl IV -> increase anaerobic coverage in setting of gangrene . . Problems: Consultation Date/Type/Reason Admit Date/Time Nov 19, 2016 at 11:38 Exam/Review of Systems Vital Signs Vitals Vital Signs Date Time Temp Pulse Resp B/P Pulse Ox O2 Delivery O2 Flow Rate FiO2 11/23/16 08:12 98.1 63 16 123/62 99 11/20/16 20:00 Room Air 11/20/16 19:10 2.0 Intake and Output 11/22/16 11/22/16 11/23/16 15:00 23:00 07:00 Intake Total 410 ml 1140 ml 600 ml Output Total 1800 ml Balance 410 ml -660 ml 600 ml Results Result Diagram: 11/22/16 0459 11/22/16 0459 Results 24 hrs Laboratory Tests Test 11/22/16 20:08 11/23/16 08:03 11/23/16 12:12 11/23/16 17:38 Bedside Glucose 154 112 164 98 Medications Medications Current Medications Diagnostic Test (Pha) 1 ea 1 ea 02 XX ; Start 11/20/16 at 02:00 Cefepime HCl 50 ml @ 100 mls/hr Q12 IVPB Last administered on 11/23/16 08:18 ; Admin Dose 100 MLS/HR; Start 11/19/16 at 18:30 Vancomycin HCl (Vancocin) 250 ml @ 125 mls/hr Q12H IVPB Last administered on 17:29; Admin Dose 125 MLS/HR; Start 11/19/16 at 18:00 Oxycodone/ Acetaminophen (Percocet (5/ 325)) 1 tab Q4H PRN PO PAIN Last administered on 11/22/16 20:17; Admin Dose 1 TAB; Start 11/19/16 at 18:30 Atorvastatin Calcium (Lipitor) 10 mg QHS PO Last administered on 11/22/16 20: 11; Admin Dose 10 MG; Start 11/19/16 at 21:00 Gabapentin (Neurontin) 300 mg TID PO Last administered on 11/23/16 12:32; Admin Dose 300 MG; Start 11/19/16 at 21:00 Lisinopril (Zestril) 10 mg DAILY PO Last administered on 11/23/16 08:16; Admin Dose 10 MG; Start 11/20/16 at 09:00 Oxycodone/ Acetaminophen (Percocet (5/ 325)) 2 tab Q4H PRN PO PAIN LEVEL 6-10 Last administered on 11/23/16 17:28; Admin Dose 2 TAB; Start 11/19/16 at 21:30 Hydromorphone HCl (Dilaudid) 0.5 mg Q4H PRN IV PAIN LEVEL 6-10 Last administered on 11/23/16 00:41; Admin Dose 0.5 MG; Start 11/20/16 at 03:00 Hydromorphone HCl (Dilaudid) 1 mg Q4H PRN IV SEVERE PAIN LEVEL 7-10 Last administered on 11/23/16 19:14; Admin Dose 1 MG; Start 11/20/16 at 03:00 Miscellaneous Information 1 ea NOTE XX ; Start 11/20/16 at 08:00 Glucose (Glutose) 15 gm Q15M PRN PO DECREASED GLUCOSE; Start 11/20/16 at 08:00 Glucose (Glutose) 22.5 gm Q15M PRN PO DECREASED GLUCOSE; Start 11/20/16 at 08: 00 Dextrose (D50w Syringe) 25 ml Q15M PRN IV DECREASED GLUCOSE; Start 11/20/16 at 08:00 Dextrose (D50w Syringe) 50 ml Q15M PRN IV DECREASED GLUCOSE; Start 11/20/16 at 08:00 Glucagon (Glucagen) 1 mg Q15M PRN IM DECREASED GLUCOSE; Start 11/20/16 at 08:00 Glucose (Glutose) 15 gm Q15M PRN BUCCAL DECREASED GLUCOSE; Start 11/20/16 at 08 :00 Hydralazine HCl (Apresoline) 10 mg Q6H PRN IV SBP>160; Start 11/20/16 at 16:30 Insulin Glargine (Lantus) 6 unit DAILY@20 SC Last administered on 11/22/16 20: 10; Admin Dose 6 UNIT; Start 11/20/16 at 20:00 Cholecalciferol 2000 unit 2,000 unit DAILY PO Last administered on 11/23/16 08 :16; Admin Dose 2,000 UNIT; Start 11/21/16 at 11:30 Ferric Sodium Gluconate Complex/ Sodium Chloride (Ferrlecit/NS) 110 ml @ 110 mls/hr Q24H IVPB Last administered on 11/23/16 12:16; Admin Dose 110 MLS/HR; Start 11/21/16 at 13:00; Stop 11/25/16 at 13:59 Famotidine (Pepcid) 20 mg BID PO Last administered on 11/23/16 08:16; Admin Dose 20 MG; Start 11/21/16 at 21:00 Clopidogrel Bisulfate (plaVIX) 75 mg DAILY PO Last administered on 11/23/16 08 :16; Admin Dose 75 MG; Start 11/22/16 at 12:30 MICHELLE SOLORZANO NP Nov 23, 2016 19:53
[2016-11-23] MEDS: INSULIN GLARGINE [LANtus] 3 ML PEN SC SCH (20:46)
[2016-11-23] MEDS: ATORVASTATIN 10 MG TAB PO SCH (20:47)
[2016-11-23] MEDS: metroNIDAZOLE 500 MG/NS (PMX) 250 MG in EVAC CONTAINER 1 BOTTLE IVPB SCH (21:55)
[2016-11-24] MEDS: ACCU-CHEK XX SCH (02:00)
[2016-11-24] MEDS: HYDROmorphONE 1 MG/ML SYG IV PRN ×5 (03:41→21:11)
[2016-11-24] MEDS: metroNIDAZOLE 500 MG/NS (PMX) 250 MG in EVAC CONTAINER 1 BOTTLE IVPB SCH ×3 (05:12→22:28)
[2016-11-24] MEDS: VANCOMYCIN 1 GM in NS 250 ML IVPB SCH ×2 (06:14→17:04)
[2016-11-24] MEDS: OXYCODONE/ACETAMINOPHEN (5/325) TAB PO PRN ×2 (06:17→23:43)
[2016-11-24 07:49] VITALS: BP 134/61; RESP 16
[2016-11-24] MEDS: INSULIN ASPART [NOVOLOG] 3 ML PEN SC SCH ×7 (07:56→21:00)
[2016-11-24] MEDS: CEFEPIME 1GM/50 ML (PMX) 50 ML IVPB SCH ×2 (08:41→21:17)
[2016-11-24] MEDS: GABAPENTIN 300 MG CAP PO SCH ×3 (08:42→21:18)
[2016-11-24] MEDS: FAMOTIDINE 20 MG TAB PO SCH ×2 (08:43→21:18)
[2016-11-24] MEDS: LISINOPRIL 10 MG TAB PO SCH (08:43)
[2016-11-24] MEDS: CHOLECALCIFEROL 2,000 UNIT CAP PO SCH (08:43)
[2016-11-24] MEDS: CLOPIDOGREL 75 MG TAB PO SCH (08:43)
[2016-11-24] MEDS: SOD FERRIC GLUC COMPLX 125 MG in SOD CHLORIDE 0.9% 100 ML IVPB SCH (12:29)
--- NOTE | 2016-11-24 14:12 | CONS ---
Date/Time of Note Date/Time of Note DATE: 11/24/16 TIME: 14:09 Assessment/Plan Assessment/Plan Chief Complaint/Hosp Course ID PROGRESS NOTE CURRENT ABX => #5 Vanco IV + Cefepime + Flagyl 24H INTERVAL SUMMARY => POD #4=>S/P incision and drainage of the 4th and 5th toe with amputation of the right third toe by vascular surgery on 11/20/2016. 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 Right lower extremity gangrene => LIMB SALVAGE PLAN * POD #2=>S/P incision and drainage of the 4th and 5th toe with amputation of the right third toe by vascular surgery on 11/20/2016. 2. PAD -> Bilateral lower extremity atherosclerosis. * s/p RLEXT angiogram/femoral popliteal angioplasty and her anterior tibial and dorsalis pedis artery angioplasty. 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 Diabetes w/complication of severe CV disease and polyneuropathies 5. Hypercholesterolemia. (-)MRSA Nares INVASIVES: PIV, ABX ALLERGY: NKDA CURRENT ABX: DAY # #5 Vanco IV #5+ Cefepime #5 + Flagyl #2 ID RECOMMENDATIONS 1. Continue current ABX + Flagyl IV -> increase anaerobic coverage in setting of gangrene 2. Wound vac onboard 3. PER APC NOTE PLAN: Vac will be removed by Dr. Perez on wed and evaluation of the wound. May require further dbridements. . . Problems: Consultation Date/Type/Reason Admit Date/Time Nov 19, 2016 at 11:38 Exam/Review of Systems Vital Signs Vitals Vital Signs Date Time Temp Pulse Resp B/P Pulse Ox O2 Delivery O2 Flow Rate FiO2 11/24/16 07:49 98.6 67 16 134/61 94 11/20/16 20:00 Room Air 11/20/16 19:10 2.0 Intake and Output 11/23/16 11/23/16 11/24/16 15:00 23:00 07:00 Intake Total 410 ml 1250 ml 330 ml Output Total 650 ml Balance 410 ml 1250 ml -320 ml Results Result Diagram: 11/22/16 0459 11/22/16 0459 Results 24 hrs Laboratory Tests Test 11/23/16 17:38 11/23/16 20:45 11/24/16 07:50 11/24/16 11:30 Bedside Glucose 98 136 98 121 Medications Medications Current Medications Diagnostic Test (Pha) 1 ea 1 ea 02 XX ; Start 11/20/16 at 02:00 Cefepime HCl 50 ml @ 100 mls/hr Q12 IVPB Last administered on 11/24/16 08:41 ; Admin Dose 100 MLS/HR; Start 11/19/16 at 18:30 Vancomycin HCl (Vancocin) 250 ml @ 125 mls/hr Q12H IVPB Last administered on 06:14; Admin Dose 125 MLS/HR; Start 11/19/16 at 18:00 Oxycodone/ Acetaminophen (Percocet (5/ 325)) 1 tab Q4H PRN PO PAIN Last administered on 11/22/16 20:17; Admin Dose 1 TAB; Start 11/19/16 at 18:30 Atorvastatin Calcium (Lipitor) 10 mg QHS PO Last administered on 11/23/16 20: 47; Admin Dose 10 MG; Start 11/19/16 at 21:00 Gabapentin (Neurontin) 300 mg TID PO Last administered on 11/24/16 12:29; Admin Dose 300 MG; Start 11/19/16 at 21:00 Lisinopril (Zestril) 10 mg DAILY PO Last administered on 11/24/16 08:43; Admin Dose 10 MG; Start 11/20/16 at 09:00 Oxycodone/ Acetaminophen (Percocet (5/ 325)) 2 tab Q4H PRN PO PAIN LEVEL 6-10 Last administered on 11/24/16 06:17; Admin Dose 2 TAB; Start 11/19/16 at 21:30 Hydromorphone HCl (Dilaudid) 0.5 mg Q4H PRN IV PAIN LEVEL 6-10 Last administered on 11/23/16 00:41; Admin Dose 0.5 MG; Start 11/20/16 at 03:00 Hydromorphone HCl (Dilaudid) 1 mg Q4H PRN IV SEVERE PAIN LEVEL 7-10 Last administered on 11/24/16 12:51; Admin Dose 1 MG; Start 11/20/16 at 03:00 Miscellaneous Information 1 ea NOTE XX ; Start 11/20/16 at 08:00 Glucose (Glutose) 15 gm Q15M PRN PO DECREASED GLUCOSE; Start 11/20/16 at 08:00 Glucose (Glutose) 22.5 gm Q15M PRN PO DECREASED GLUCOSE; Start 11/20/16 at 08: 00 Dextrose (D50w Syringe) 25 ml Q15M PRN IV DECREASED GLUCOSE; Start 11/20/16 at 08:00 Dextrose (D50w Syringe) 50 ml Q15M PRN IV DECREASED GLUCOSE; Start 11/20/16 at 08:00 Glucagon (Glucagen) 1 mg Q15M PRN IM DECREASED GLUCOSE; Start 11/20/16 at 08:00 Glucose (Glutose) 15 gm Q15M PRN BUCCAL DECREASED GLUCOSE; Start 11/20/16 at 08 :00 Hydralazine HCl (Apresoline) 10 mg Q6H PRN IV SBP>160; Start 11/20/16 at 16:30 Insulin Glargine (Lantus) 6 unit DAILY@20 SC Last administered on 11/23/16 20: 46; Admin Dose 6 UNIT; Start 11/20/16 at 20:00 Cholecalciferol 2000 unit 2,000 unit DAILY PO Last administered on 11/24/16 08 :43; Admin Dose 2,000 UNIT; Start 11/21/16 at 11:30 Ferric Sodium Gluconate Complex/ Sodium Chloride (Ferrlecit/NS) 110 ml @ 110 mls/hr Q24H IVPB Last administered on 11/24/16 12:29; Admin Dose 110 MLS/HR; Start 11/21/16 at 13:00; Stop 11/25/16 at 13:59 Famotidine (Pepcid) 20 mg BID PO Last administered on 11/24/16 08:43; Admin Dose 20 MG; Start 11/21/16 at 21:00 Clopidogrel Bisulfate 75 mg 75 mg DAILY PO Last administered on 11/24/16 08:43 ; Admin Dose 75 MG; Start 11/22/16 at 12:30 Metronidazole/N/A (Flagyl 500 Mg (Pmx)/Evac Container) 50 ml @ 50 mls/hr Q8 IVPB Last administered on 11/24/16 05:12; Admin Dose 50 MLS/HR; Start at 22:00 Miscellaneous Information (*Rx Drug Level Order Reminder*) VANCO TROUGH @ 1, 700 ON... ONCE ONCE XX ; Start 11/25/16 at 17:00; Stop 11/25/16 at 17:01 MICHELLE SOLORZANO NP Nov 24, 2016 14:12
--- NOTE | 2016-11-24 14:59 | PN ---
Date/Time of Note Date/Time of Note DATE: 11/24/16 TIME: 14:58 Assessment/Plan VTE Prophylaxis VTE Prophylaxis Intervention: SCD's Lines/Catheters IV Catheter Type (from [facility] [facility] Urinary Cath still in place: No Assessment/Plan Assessment/Plan 1. Right lower extremity gangrenous wound with infection of 4th and 5th toe. The patient is S/P incision and drainage of the 4th and 5th toe with amputation of the right third toe by vascular surgery on 11/20/2016. on vanco/cefepime and wound vac 2. Type 2 diabetes mellitus. Hemoglobin A1c 6.5. The patient will be maintained on sliding scale insulin along with Lantus insulin and premeal insulin. 3. Essential hypertension. controlled 4. Peripheral vascular disease. 5. Diabetic neuropathy. The patient will be continued on gabapentin. 6. Normocytic normochromic anemia. The patient's H and H will be monitored closely. Iron panel showing iron deficiency. Continue iron supplements. 7. Vitamin D deficiency. Continue vitamin D supplements. 8. DVT prophylaxis. Chemical DVT prophylaxis to be resumed once cleared by surgery. Subjective 24 Hr Interval Summary Free Text/Dictation afebrile Exam/Review of Systems Vital Signs Vitals Vital Signs Date Time Temp Pulse Resp B/P Pulse Ox O2 Delivery O2 Flow Rate FiO2 11/24/16 07:49 98.6 67 16 134/61 94 11/20/16 20:00 Room Air 11/20/16 19:10 2.0 Intake and Output 11/23/16 11/23/16 11/24/16 15:00 23:00 07:00 Intake Total 410 ml 1250 ml 330 ml Output Total 650 ml Balance 410 ml 1250 ml -320 ml Exam Constitutional: alert, oriented, well developed Psych: nl mood/affect, no complaints Head: atraumatic, normocephalic Eyes: EOMI, PERRL, nl conjunctiva, nl lids ENMT: nl external ears & nose, nl lips & teeth, nl nasal mucosa & septum Neck: non-tender, supple Respiratory: clear to auscultation, normal air movement, No congested cough, No crackles/rales, No diminished breath sounds, No intercostal retraction, No labored breathing, No other, No respirations, No tactile fremitus, No wheezing Cardiovascular: nl pulses, regular rate and rhythm, No S3, No S4, No bruits, No diastolic murmur, No edema, No gallop, No irregular rhythm, No jugular venous distention (JVD), No murmurs/extra sounds, No other, No rub, No systolic murmur Gastrointestinal: nl liver, spleen, non-tender, soft, No ascites, No bowel sounds, No distended, No firm, No hepatomegaly, No mass , No other, No rebound or guarding, No splenomegaly, No surgical scars, No tender Musculoskeletal: nl extremities to inspection Extremities: normal pulses, other (right foot wound with wound VAC) Neurological: ASSEMBLY RIVETER II-XII intact, nl mental status, nl speech, nl strength Lymph: nl lymph nodes Results Result Diagram: 11/22/169 11/22/169 Results 24 hrs Laboratory Tests Test 11/23/16 17:38 11/23/16 20:45 11/24/16 07:50 11/24/16 11:30 Bedside Glucose 98 136 98 121 Medications Medications Current Medications Diagnostic Test (Pha) 1 ea ea 02 XX ; Start 11/20/16 at 02:00 Cefepime HCl 50 ml @ 100 mls/hr Q12 IVPB Last administered on 11/24/16 08:41 ; Admin Dose 100 MLS/HR; Start 11/19/16 at 18:30 Vancomycin HCl (Vancocin) 250 ml @ 125 mls/hr Q12H IVPB Last administered on 06:14; Admin Dose 125 MLS/HR; Start 11/19/16 at 18:00 Oxycodone/ Acetaminophen (Percocet (5/ 325)) 1 tab Q4H PRN PO PAIN Last administered on 11/22/16 20:17; Admin Dose 1 TAB; Start 11/19/16 at 18:30 Atorvastatin Calcium (Lipitor) 10 mg QHS PO Last administered on 11/23/16 20: 47; Admin Dose 10 MG; Start 11/19/16 at 21:00 Gabapentin (Neurontin) 300 mg TID PO Last administered on 11/24/16 12:29; Admin Dose 300 MG; Start 11/19/16 at 21:00 Lisinopril (Zestril) 10 mg DAILY PO Last administered on 11/24/16 08:43; Admin Dose 10 MG; Start 11/20/16 at 09:00 Oxycodone/ Acetaminophen (Percocet (5/ 325)) 2 tab Q4H PRN PO PAIN LEVEL 6-10 Last administered on 11/24/16 06:17; Admin Dose 2 TAB; Start 11/19/16 at 21:30 Hydromorphone HCl (Dilaudid) 0.5 mg Q4H PRN IV PAIN LEVEL 6-10 Last administered on 11/23/16 00:41; Admin Dose 0.5 MG; Start 11/20/16 at 03:00 Hydromorphone HCl (Dilaudid) 1 mg Q4H PRN IV SEVERE PAIN LEVEL 7-10 Last administered on 11/24/16 12:51; Admin Dose 1 MG; Start 11/20/16 at 03:00 Miscellaneous Information 1 ea NOTE XX ; Start 11/20/16 at 08:00 Glucose (Glutose) 15 gm Q15M PRN PO DECREASED GLUCOSE; Start 11/20/16 at 08:00 Glucose (Glutose) 22.5 gm Q15M PRN PO DECREASED GLUCOSE; Start 11/20/16 at 08: 00 Dextrose (D50w Syringe) 25 ml Q15M PRN IV DECREASED GLUCOSE; Start 11/20/16 at 08:00 Dextrose (D50w Syringe) 50 ml Q15M PRN IV DECREASED GLUCOSE; Start 11/20/16 at 08:00 Glucagon (Glucagen) 1 mg Q15M PRN IM DECREASED GLUCOSE; Start 11/20/16 at 08:00 Glucose (Glutose) 15 gm Q15M PRN BUCCAL DECREASED GLUCOSE; Start 11/20/16 at 08 :00 Hydralazine HCl (Apresoline) 10 mg Q6H PRN IV SBP>160; Start 11/20/16 at 16:30 Insulin Glargine (Lantus) 6 unit DAILY@20 SC Last administered on 11/23/16 20: 46; Admin Dose 6 UNIT; Start 11/20/16 at 20:00 Cholecalciferol 2000 unit 2,000 unit DAILY PO Last administered on 11/24/16 08 :43; Admin Dose 2,000 UNIT; Start 11/21/16 at 11:30 Ferric Sodium Gluconate Complex/ Sodium Chloride (Ferrlecit/NS) 110 ml @ 110 mls/hr Q24H IVPB Last administered on 11/24/16 12:29; Admin Dose 110 MLS/HR; Start 11/21/16 at 13:00; Stop 11/25/16 at 13:59 Famotidine (Pepcid) 20 mg BID PO Last administered on 11/24/16 08:43; Admin Dose 20 MG; Start 11/21/16 at 21:00 Clopidogrel Bisulfate 75 mg 75 mg DAILY PO Last administered on 11/24/16 08:43 ; Admin Dose 75 MG; Start 11/22/16 at 12:30 Metronidazole/N/A (Flagyl 500 Mg (Pmx)/Evac Container) 50 ml @ 50 mls/hr Q8 IVPB Last administered on 11/24/16 05:12; Admin Dose 50 MLS/HR; Start at 22:00 Miscellaneous Information (*Rx Drug Level Order Reminder*) VANCO TROUGH @ 1, 700 ON... ONCE ONCE XX ; Start 11/25/16 at 17:00; Stop 11/25/16 at 17:01 Ondansetron HCl (Zofran Inj) 4 mg Q4H PRN IV NAUSEA AND/OR VOMITING; Start at 14:30 BI VALLEJO MD Nov 24, 2016 14:59
[2016-11-24 19:47] VITALS: BP 132/60; RESP 18
[2016-11-24] MEDS: ATORVASTATIN 10 MG TAB PO SCH (21:17)
[2016-11-24] MEDS: INSULIN GLARGINE [LANtus] 3 ML PEN SC SCH (21:17)
[2016-11-25] MEDS: HYDROmorphONE 1 MG/ML SYG IV PRN ×5 (01:50→21:41)
[2016-11-25] MEDS: ACCU-CHEK XX SCH ×2 (02:00→21:46)
[2016-11-25] MEDS: metroNIDAZOLE 500 MG/NS (PMX) 250 MG in EVAC CONTAINER 1 BOTTLE IVPB SCH ×3 (05:12→21:41)
[2016-11-25 06:08] LABS: CREATININE 0.44 mg/dl (0.44-1.00)
[2016-11-25] MEDS: VANCOMYCIN 1 GM in NS 250 ML IVPB SCH ×2 (06:17→17:40)
[2016-11-25 07:30] VITALS: BP 114/57; RESP 18
[2016-11-25] MEDS: INSULIN ASPART [NOVOLOG] 3 ML PEN SC SCH ×7 (07:57→20:35)
[2016-11-25] MEDS: CHOLECALCIFEROL 2,000 UNIT CAP PO SCH (08:10)
[2016-11-25] MEDS: CLOPIDOGREL 75 MG TAB PO SCH (08:10)
[2016-11-25] MEDS: GABAPENTIN 300 MG CAP PO SCH ×3 (08:10→20:36)
[2016-11-25] MEDS: LISINOPRIL 10 MG TAB PO SCH (08:15)
[2016-11-25] MEDS: FAMOTIDINE 20 MG TAB PO SCH ×2 (08:15→20:36)
[2016-11-25] MEDS: CEFEPIME 1GM/50 ML (PMX) 50 ML IVPB SCH ×2 (08:47→20:35)
[2016-11-25] MEDS: OXYCODONE/ACETAMINOPHEN (5/325) TAB PO PRN ×3 (08:57→20:36)
[2016-11-25] MEDS: SOD FERRIC GLUC COMPLX 125 MG in SOD CHLORIDE 0.9% 100 ML IVPB SCH (14:24)
[2016-11-25 15:23] LABS: ADD UMIC YES; URINE BILIRUBIN (Dip) NEGATIVE (NEGATIVE); URINE BLOOD (Dip) NEGATIVE (NEGATIVE); URINE COLOR LT. YELLOW (YELLOW); URINE GLUCOSE (Dip) NEGATIVE (NEGATIVE); URINE KETONES (Dip) NEGATIVE (NEGATIVE); URINE LEUKOCYTE ESTERASE (Dip) 1+ (NEGATIVE); URINE NITRITE (Dip) NEGATIVE (NEGATIVE); URINE TOTAL PROTEIN (Dip) NEGATIVE (NEGATIVE); URINE UROBILINOGEN (Dip) 0.2 E.U./dL (0.1-1.0)
[2016-11-25 15:40] LABS: SQUAMOUS EPITHELIAL CELL,UR FEW; URINE RBCS NONE SEEN /HPF (0)
--- NOTE | 2016-11-25 20:07 | CONS ---
Date/Time of Note Date/Time of Note DATE: 11/25/16 TIME: 19:58 Assessment/Plan Assessment/Plan Chief Complaint/Hosp Course ID PROGRESS NOTE CURRENT ABX => #6 Vanco IV + Cefepime + Flagyl 24H INTERVAL SUMMARY => POD #5 =>S/P incision and drainage of the 4th and 5th toe with amputation of the right third toe by vascular surgery on 11/20/2016. * A/A/O -> Desire is for limb salvage, wound vac removed and pending re- evaluation this week by APC team => possible further debride vs wound vac * She has peripheral line patent in right extremity -- tells me she had a PICC that was removed a few weeks ago due to LUEXT edema. We discussed possibility need for future PICC, at this time she is doing well with PIV. 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 Right lower extremity gangrene => LIMB SALVAGE PLAN * POD #2=>S/P incision and drainage of the 4th and 5th toe with amputation of the right third toe by vascular surgery on 11/20/2016. 2. PAD -> Bilateral lower extremity atherosclerosis. * s/p RLEXT angiogram/femoral popliteal angioplasty and her anterior tibial and dorsalis pedis artery angioplasty. 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 Diabetes w/complication of severe CV disease and polyneuropathies 5. Hypercholesterolemia. (-)MRSA Nares INVASIVES: PIV, ABX ALLERGY: NKDA CURRENT ABX: DAY #6 => Vanco IV + Cefepime + Flagyl ID RECOMMENDATIONS 1. Continue current ABX -> She may require new PICC Placement if plan is for DC to , defer to primary provider 2. Vac will removed -> May require further dbridements, await APC follow up . . . Problems: Consultation Date/Type/Reason Admit Date/Time Nov 19, 2016 at 11:38 Exam/Review of Systems Vital Signs Vitals Vital Signs Date Time Temp Pulse Resp B/P Pulse Ox O2 Delivery O2 Flow Rate FiO2 11/25/16 07:30 98.2 58 18 114/57 98 Intake and Output 11/24/16 11/24/16 11/25/16 15:00 23:00 07:00 Intake Total 150 ml 1210 ml 650 ml Output Total 1050 ml Balance 150 ml 1210 ml -400 ml Results Result Diagram: 11/22/16 0459 11/25/16 0445 Results 24 hrs Laboratory Tests Test 11/24/16 21:16 11/25/16 04:45 11/25/16 07:56 11/25/16 12:14 Bedside Glucose 137 94 141 Blood Urea Nitrogen 11 Creatinine 0.44 Test 11/25/16 14:40 11/25/16 16:45 11/25/16 17:25 Urine Color LT. YELLOW Urine Clarity CLEAR Urine pH 6.0 Urine Specific [place] <=1.005 L Urine Ketones NEGATIVE Urine Nitrite NEGATIVE Urine Bilirubin NEGATIVE Urine Urobilinogen 0.2 E.U./dL Urine Leukocyte Esterase 1+ H Urine Microscopic RBC NONE SEEN Urine Microscopic WBC 2-5 Urine Squamous Epithelial Cells FEW Urine Hemoglobin NEGATIVE Urine Osmolality 321 Urine Random Sodium 60 Urine Glucose NEGATIVE Urine Total Protein NEGATIVE Vancomycin Level Trough 12.8 Bedside Glucose 132 Medications Medications Current Medications Diagnostic Test (Pha) 1 ea 1 ea 02 XX ; Start 11/20/16 at 02:00 Cefepime HCl 50 ml @ 100 mls/hr Q12 IVPB Last administered on 11/25/16 08:47 ; Admin Dose 100 MLS/HR; Start 11/19/16 at 18:30 Vancomycin HCl (Vancocin) 250 ml @ 125 mls/hr Q12H IVPB Last administered on 17:40; Admin Dose 125 MLS/HR; Start 11/19/16 at 18:00 Oxycodone/ Acetaminophen (Percocet (5/ 325)) 1 tab Q4H PRN PO PAIN Last administered on 11/22/16 20:17; Admin Dose 1 TAB; Start 11/19/16 at 18:30 Atorvastatin Calcium (Lipitor) 10 mg QHS PO Last administered on 11/24/16 21: 17; Admin Dose 10 MG; Start 11/19/16 at 21:00 Gabapentin (Neurontin) 300 mg TID PO Last administered on 11/25/16 12:59; Admin Dose 300 MG; Start 11/19/16 at 21:00 Lisinopril (Zestril) 10 mg DAILY PO Last administered on 11/24/16 08:43; Admin Dose 10 MG; Start 11/20/16 at 09:00 Oxycodone/ Acetaminophen (Percocet (5/ 325)) 2 tab Q4H PRN PO PAIN LEVEL 6-10 Last administered on 11/25/16 16:20; Admin Dose 2 TAB; Start 11/19/16 at 21:30 Hydromorphone HCl (Dilaudid) 0.5 mg Q4H PRN IV PAIN LEVEL 6-10 Last administered on 11/23/16 00:41; Admin Dose 0.5 MG; Start 11/20/16 at 03:00 Hydromorphone HCl (Dilaudid) 1 mg Q4H PRN IV SEVERE PAIN LEVEL 7-10 Last administered on 11/25/16 17:30; Admin Dose 1 MG; Start 11/20/16 at 03:00 Miscellaneous Information 1 ea NOTE XX ; Start 11/20/16 at 08:00 Glucose (Glutose) 15 gm Q15M PRN PO DECREASED GLUCOSE; Start 11/20/16 at 08:00 Glucose (Glutose) 22.5 gm Q15M PRN PO DECREASED GLUCOSE; Start 11/20/16 at 08: 00 Dextrose (D50w Syringe) 25 ml Q15M PRN IV DECREASED GLUCOSE; Start 11/20/16 at 08:00 Dextrose (D50w Syringe) 50 ml Q15M PRN IV DECREASED GLUCOSE; Start 11/20/16 at 08:00 Glucagon (Glucagen) 1 mg Q15M PRN IM DECREASED GLUCOSE; Start 11/20/16 at 08:00 Glucose (Glutose) 15 gm Q15M PRN BUCCAL DECREASED GLUCOSE; Start 11/20/16 at 08 :00 Hydralazine HCl (Apresoline) 10 mg Q6H PRN IV SBP>160; Start 11/20/16 at 16:30 Insulin Glargine (Lantus) 6 unit DAILY@20 SC Last administered on 11/24/16 21: 17; Admin Dose 6 UNIT; Start 11/20/16 at 20:00 Cholecalciferol (Vitamin D) 2,000 unit DAILY PO Last administered on 11/25/16 08:10; Admin Dose 2,000 UNIT; Start 11/21/16 at 11:30 Famotidine (Pepcid) 20 mg BID PO Last administered on 11/25/16 08:15; Admin Dose 20 MG; Start 11/21/16 at 21:00 Clopidogrel Bisulfate 75 mg 75 mg DAILY PO Last administered on 11/25/16 08:10 ; Admin Dose 75 MG; Start 11/22/16 at 12:30 Metronidazole/N/A (Flagyl 500 Mg (Pmx)/Evac Container) 50 ml @ 50 mls/hr Q8 IVPB Last administered on 11/25/16 13:01; Admin Dose 50 MLS/HR; Start at 22:00 Ondansetron HCl (Zofran Inj) 4 mg Q4H PRN IV NAUSEA AND/OR VOMITING; Start at 14:30 MICHELLE SOLORZANO EXHIBIT ARTIST Nov 25, 2016 20:07
[2016-11-25] MEDS: ATORVASTATIN 10 MG TAB PO SCH (20:36)
[2016-11-25] MEDS: INSULIN GLARGINE [LANtus] 3 ML PEN SC SCH (20:37)
[2016-11-25 21:29] VITALS: BP 118/56; RESP 18
--- NOTE | 2016-11-25 23:02 | CONS ---
Date/Time of Note Date/Time of Note DATE: 11/25/16 TIME: 23:02 Assessment/Plan Assessment/Plan Problems: (1) Open wound of right foot (2) Cellulitis of right foot (3) Peripheral vascular disease (4) Diabetes, polyneuropathy (5) Adjustment disorder with depressed mood Status: Acute (6) History of above knee amputation (7) Essential hypertension Status: Chronic Additional Assessment/Plan This is a 56-year-old female patient with worsening gangrene of the right foot secondary to severe peripheral vascular disease. Patient's prognosis is poor. 1. We will discuss with vascular surgery regarding revascularization of the right lower extremity. If revascularization is not possible, patient will not benefit from any type of foot amputation 2. Monitor right foot and change bandages daily 3. Patient will be monitored in-house Discharge planning: hold d/c Consultation Date/Type/Reason Admit Date/Time Nov 19, 2016 at 11:38 Date of Consultation: Nov 25, 2016 Type of Consultation: Foot and ankle surgery Reason for Consultation Evaluation of the right foot gangrene Hx of Present Illness Thank you very much for involving me in the care of this patient. As you very well know this is a pleasant 50-year-old female patient with multiple medical problems including significant lower extremity arterial disease, status post left hip disarticulation and leg amputation, hypertension, diabetes mellitus, peripheral neuropathy, gangrene of right fourth and fifth toes, gangrene of right foot, who is familiar to my practice. I was consulted for evaluation and care of the gangrenous changes in the right foot. Patient reports significant pain in the right foot. Denies recent fever and chills. Patient has had right lower extremity endovascular interventions in the past along with right foot surgery. Patient denies current alcohol, tobacco or illicit drug use. Psychological: nl mood/affect, no complaints Past Medical History As per history of present illness. Past Surgical History As per history of present illness. Social History As per history of present illness. Smoking Status: Never smoker Exam/Review of Systems Vital Signs Vitals Vital Signs Date Time Temp Pulse Resp B/P Pulse Ox O2 Delivery O2 Flow Rate FiO2 11/25/16 21:29 98.2 64 18 118/56 98 Intake and Output 11/24/16 11/24/16 11/25/16 15:00 23:00 07:00 Intake Total 150 ml 1210 ml 650 ml Output Total 1050 ml Balance 150 ml 1210 ml -400 ml Exam GENERAL APPEARANCE: Patient is in no acute distress laying supine in bed VASCULAR EXAM: Dorsalis pedis and posterior tibial pulse not palpable right lower extremity. Significantly delayed capillary filling time noted on exam. Increased temperature gradient noted on exam. Right foot edema. No varicose veins noted on examination NEUROLOGICAL EXAM: Protective sensation is diminished to sharp, dull, vibratory and temperature stimuli. Normal deep tendon reflexes noted. Negative Tinel sign on examination DERMATOLOGICAL EXAM: Status post amputation right fourth and fifth toes with open gangrenous wound. Tender to palpation. No pus and no bleeding noted MUSCULOSKELETAL EXAM: Right foot is tender to exam IMAGING: Reviewed in chart LABS: Reviewed in chart Results Result Diagram: 11/22/16 0459 11/25/16 0445 Results 24 hrs Laboratory Tests Test 11/25/16 04:45 11/25/16 07:56 11/25/16 12:14 11/25/16 14:40 Blood Urea Nitrogen 11 Creatinine 0.44 Bedside Glucose 94 141 Urine Color LT. YELLOW Urine Clarity CLEAR Urine pH 6.0 Urine Specific [place] <=1.005 L Urine Ketones NEGATIVE Urine Nitrite NEGATIVE Urine Bilirubin NEGATIVE Urine Urobilinogen 0.2 E.U./dL Urine Leukocyte Esterase 1+ H Urine Microscopic RBC NONE SEEN Urine Microscopic WBC 2-5 Urine Squamous Epithelial Cells FEW Urine Hemoglobin NEGATIVE Urine Osmolality 321 Urine Random Sodium 60 Urine Glucose NEGATIVE Urine Total Protein NEGATIVE Test 11/25/16 16:45 11/25/16 17:25 11/25/16 20:34 Vancomycin Level Trough 12.8 Bedside Glucose 132 173 Medications Medications Current Medications Diagnostic Test (Pha) 1 ea ea 02 XX ; Start 11/20/16 at 02:00 Cefepime HCl 50 ml @ 100 mls/hr Q12 IVPB Last administered on 11/25/16 20:35 ; Admin Dose 100 MLS/HR; Start 11/19/16 at 18:30 Vancomycin HCl (Vancocin) 250 ml @ 125 mls/hr Q12H IVPB Last administered on 17:40; Admin Dose 125 MLS/HR; Start 11/19/16 at 18:00 Oxycodone/ Acetaminophen (Percocet (5/ 325)) 1 tab Q4H PRN PO PAIN Last administered on 11/22/16 20:17; Admin Dose 1 TAB; Start 11/19/16 at 18:30 Atorvastatin Calcium (Lipitor) 10 mg QHS PO Last administered on 11/25/16 20: 36; Admin Dose 10 MG; Start 11/19/16 at 21:00 Gabapentin (Neurontin) 300 mg TID PO Last administered on 11/25/16 20:36; Admin Dose 300 MG; Start 11/19/16 at 21:00 Lisinopril (Zestril) 10 mg DAILY PO Last administered on 11/24/16 08:43; Admin Dose 10 MG; Start 11/20/16 at 09:00 Oxycodone/ Acetaminophen (Percocet (5/ 325)) 2 tab Q4H PRN PO PAIN LEVEL 6-10 Last administered on 11/25/16 20:36; Admin Dose 2 TAB; Start 11/19/16 at 21:30 Hydromorphone HCl (Dilaudid) 0.5 mg Q4H PRN IV PAIN LEVEL 6-10 Last administered on 11/23/16 00:41; Admin Dose 0.5 MG; Start 11/20/16 at 03:00 Hydromorphone HCl (Dilaudid) 1 mg Q4H PRN IV SEVERE PAIN LEVEL 7-10 Last administered on 11/25/16 21:41; Admin Dose 1 MG; Start 11/20/16 at 03:00 Miscellaneous Information 1 ea NOTE XX ; Start 11/20/16 at 08:00 Glucose (Glutose) 15 gm Q15M PRN PO DECREASED GLUCOSE; Start 11/20/16 at 08:00 Glucose (Glutose) 22.5 gm Q15M PRN PO DECREASED GLUCOSE; Start 11/20/16 at 08: 00 Dextrose (D50w Syringe) 25 ml Q15M PRN IV DECREASED GLUCOSE; Start 11/20/16 at 08:00 Dextrose (D50w Syringe) 50 ml Q15M PRN IV DECREASED GLUCOSE; Start 11/20/16 at 08:00 Glucagon (Glucagen) 1 mg Q15M PRN IM DECREASED GLUCOSE; Start 11/20/16 at 08:00 Glucose (Glutose) 15 gm Q15M PRN BUCCAL DECREASED GLUCOSE; Start 11/20/16 at 08 :00 Hydralazine HCl (Apresoline) 10 mg Q6H PRN IV SBP>160; Start 11/20/16 at 16:30 Insulin Glargine (Lantus) 6 unit DAILY@20 SC Last administered on 11/25/16 20: 37; Admin Dose 6 UNIT; Start 11/20/16 at 20:00 Cholecalciferol (Vitamin D) 2,000 unit DAILY PO Last administered on 11/25/16 08:10; Admin Dose 2,000 UNIT; Start 11/21/16 at 11:30 Famotidine (Pepcid) 20 mg BID PO Last administered on 11/25/16 20:36; Admin Dose 20 MG; Start 11/21/16 at 21:00 Clopidogrel Bisulfate 75 mg 75 mg DAILY PO Last administered on 11/25/16 08:10 ; Admin Dose 75 MG; Start 11/22/16 at 12:30 Metronidazole/N/A (Flagyl 500 Mg (Pmx)/Evac Container) 50 ml @ 50 mls/hr Q8 IVPB Last administered on 11/25/16 21:41; Admin Dose 50 MLS/HR; Start at 22:00 Ondansetron HCl (Zofran Inj) 4 mg Q4H PRN IV NAUSEA AND/OR VOMITING; Start at 14:30 MARIANA LING DPM Nov 25, 2016 23:02
[2016-11-26] MEDS: OXYCODONE/ACETAMINOPHEN (5/325) TAB PO PRN ×6 (01:12→22:21)
[2016-11-26] MEDS: HYDROmorphONE 1 MG/ML SYG IV PRN ×4 (02:37→16:17)
[2016-11-26] MEDS: metroNIDAZOLE 500 MG/NS (PMX) 250 MG in EVAC CONTAINER 1 BOTTLE IVPB SCH ×3 (05:14→22:21)
[2016-11-26] MEDS: VANCOMYCIN 1 GM in NS 250 ML IVPB SCH ×2 (06:34→17:39)
[2016-11-26] MEDS: INSULIN ASPART [NOVOLOG] 3 ML PEN SC SCH ×7 (08:00→20:42)
[2016-11-26] MEDS: GABAPENTIN 300 MG CAP PO SCH ×4 (08:05→20:42)
[2016-11-26] MEDS: CLOPIDOGREL 75 MG TAB PO SCH ×2 (08:05→09:10)
[2016-11-26] MEDS: FAMOTIDINE 20 MG TAB PO SCH ×4 (08:05→20:42)
[2016-11-26] MEDS: CHOLECALCIFEROL 2,000 UNIT CAP PO SCH ×2 (08:05→09:00)
[2016-11-26] MEDS: LISINOPRIL 10 MG TAB PO SCH ×2 (08:05→09:10)
[2016-11-26] MEDS: ONDANSETRON 4 MG INJ IV PRN ×2 (08:09→19:54)
[2016-11-26 08:20] VITALS: BP 133/60; RESP 16
[2016-11-26] MEDS: CEFEPIME 1GM/50 ML (PMX) 50 ML IVPB SCH ×2 (09:47→20:41)
--- NOTE | 2016-11-26 13:12 | CONS ---
Date/Time of Note Date/Time of Note DATE: 11/26/16 TIME: 13:11 Assessment/Plan Assessment/Plan Additional Assessment/Plan renal function stable No new recommendations at this time Nephrology will sign off , please reconsult as needed Consultation Date/Type/Reason Admit Date/Time Nov 19, 2016 at 11:38 Initial Consult Date Type of Consultation: Renal 24 HR Interval Summary Free Text/Dictation no new complaints Exam/Review of Systems Vital Signs Vitals Vital Signs Date Time Temp Pulse Resp B/P Pulse Ox O2 Delivery O2 Flow Rate FiO2 11/26/16 08:20 98.2 63 16 133/60 98 Intake and Output 11/25/16 11/25/16 11/26/16 15:00 23:00 07:00 Intake Total 350 ml 1360 ml 400 ml Output Total 10 ml Balance 350 ml 1350 ml 400 ml Exam Constitutional: No distress ENMT: mucosa pink and moist Respiratory: No labored breathing Gastrointestinal: non-tender, soft Results Result Diagram: 11/22/16 0459 11/25/16 0445 Results 24 hrs Laboratory Tests Test 11/25/16 14:40 11/25/16 16:45 11/25/16 17:25 11/25/16 20:34 Urine Color LT. YELLOW Urine Clarity CLEAR Urine pH 6.0 Urine Specific [place] <=1.005 L Urine Ketones NEGATIVE Urine Nitrite NEGATIVE Urine Bilirubin NEGATIVE Urine Urobilinogen 0.2 E.U./dL Urine Leukocyte Esterase 1+ H Urine Microscopic RBC NONE SEEN Urine Microscopic WBC 2-5 Urine Squamous Epithelial Cells FEW Urine Hemoglobin NEGATIVE Urine Osmolality 321 Urine Random Sodium 60 Urine Glucose NEGATIVE Urine Total Protein NEGATIVE Vancomycin Level Trough 12.8 Bedside Glucose 132 173 Test 11/26/16 08:03 11/26/16 11:51 Bedside Glucose 92 94 Medications Medications Current Medications Diagnostic Test (Pha) 1 ea 1 ea 02 XX ; Start 11/20/16 at 02:00 Cefepime HCl 50 ml @ 100 mls/hr Q12 IVPB Last administered on 11/26/16 09:47 ; Admin Dose 100 MLS/HR; Start 11/19/16 at 18:30 Vancomycin HCl (Vancocin) 250 ml @ 125 mls/hr Q12H IVPB Last administered on 06:34; Admin Dose 125 MLS/HR; Start 11/19/16 at 18:00 Oxycodone/ Acetaminophen (Percocet (5/ 325)) 1 tab Q4H PRN PO PAIN Last administered on 11/22/16 20:17; Admin Dose 1 TAB; Start 11/19/16 at 18:30 Atorvastatin Calcium (Lipitor) 10 mg QHS PO Last administered on 11/25/16 20: 36; Admin Dose 10 MG; Start 11/19/16 at 21:00 Gabapentin (Neurontin) 300 mg TID PO Last administered on 11/26/16 11:55; Admin Dose 300 MG; Start 11/19/16 at 21:00 Lisinopril (Zestril) 10 mg DAILY PO Last administered on 11/26/16 09:10; Admin Dose 10 MG; Start 11/20/16 at 09:00 Oxycodone/ Acetaminophen (Percocet (5/ 325)) 2 tab Q4H PRN PO PAIN LEVEL 6-10 Last administered on 11/26/16 05:15; Admin Dose 2 TAB; Start 11/19/16 at 21:30 Hydromorphone HCl (Dilaudid) 0.5 mg Q4H PRN IV PAIN LEVEL 6-10 Last administered on 11/23/16 00:41; Admin Dose 0.5 MG; Start 11/20/16 at 03:00 Hydromorphone HCl (Dilaudid) 1 mg Q4H PRN IV SEVERE PAIN LEVEL 7-10 Last administered on 11/26/16 12:00; Admin Dose 1 MG; Start 11/20/16 at 03:00 Miscellaneous Information 1 ea NOTE XX ; Start 11/20/16 at 08:00 Glucose (Glutose) 15 gm Q15M PRN PO DECREASED GLUCOSE; Start 11/20/16 at 08:00 Glucose (Glutose) 22.5 gm Q15M PRN PO DECREASED GLUCOSE; Start 11/20/16 at 08: 00 Dextrose (D50w Syringe) 25 ml Q15M PRN IV DECREASED GLUCOSE; Start 11/20/16 at 08:00 Dextrose (D50w Syringe) 50 ml Q15M PRN IV DECREASED GLUCOSE; Start 11/20/16 at 08:00 Glucagon (Glucagen) 1 mg Q15M PRN IM DECREASED GLUCOSE; Start 11/20/16 at 08:00 Glucose (Glutose) 15 gm Q15M PRN BUCCAL DECREASED GLUCOSE; Start 11/20/16 at 08 :00 Hydralazine HCl (Apresoline) 10 mg Q6H PRN IV SBP>160; Start 11/20/16 at 16:30 Insulin Glargine (Lantus) 6 unit DAILY@20 SC Last administered on 11/25/16 20: 37; Admin Dose 6 UNIT; Start 11/20/16 at 20:00 Cholecalciferol (Vitamin D) 2,000 unit DAILY PO Last administered on 11/25/16 08:10; Admin Dose 2,000 UNIT; Start 11/21/16 at 11:30 Famotidine (Pepcid) 20 mg BID PO Last administered on 11/26/16 11:55; Admin Dose 20 MG; Start 11/21/16 at 21:00 Clopidogrel Bisulfate 75 mg 75 mg DAILY PO Last administered on 11/26/16 09:10 ; Admin Dose 75 MG; Start 11/22/16 at 12:30 Metronidazole/N/A (Flagyl 500 Mg (Pmx)/Evac Container) 50 ml @ 50 mls/hr Q8 IVPB Last administered on 11/26/16 05:14; Admin Dose 50 MLS/HR; Start at 22:00 Ondansetron HCl (Zofran Inj) 4 mg Q4H PRN IV NAUSEA AND/OR VOMITING Last administered on 11/26/16 08:09; Admin Dose 4 MG; Start 11/24/16 at 14:30 RYAN JAQUEZ MD Nov 26, 2016 13:12
[2016-11-26 13:32] LABS: ADD SCAN DIFF NO
[2016-11-26 13:33] LABS: BASOPHILS % 0.2 % (0.0-2.0); EOSINOPHILS # 0.2 10^3/ul (0.0-0.5); HEMATOCRIT 34.3 % (37.0-47.0); HEMOGLOBIN 11.1 g/dl (12.0-16.0); LYMPHOCYTES # 1.2 10^3/ul (0.8-2.9); LYMPHOCYTES % 13.6 % (15.0-51.0); MEAN CORPUSCULAR HEMOGLOBIN 30.9 pg (29.0-33.0); MEAN CORPUSCULAR HGB CONC 32.4 g/dl (32.0-37.0); MEAN CORPUSCULAR VOLUME 95.5 fl (82.0-101.0); MEAN PLATELET VOLUME 9.7 fl (7.4-10.4); MONOCYTE # 0.5 10^3/ul (0.3-0.9); MONOCYTES % 5.4 % (0.0-11.0); NEUTROPHIL # 6.8 10^3/ul (1.6-7.5); NEUTROPHILS % 78.3 % (39.0-77.0); PLATELET COUNT 468 10^3/UL (140-415); RED BLOOD COUNT 3.59 10^6/ul (4.20-5.40); RED CELL DISTRIBUTION WIDTH 13.5 % (11.5-14.5); WHITE BLOOD COUNT 8.7 10^3/ul (4.8-10.8)
[2016-11-26 13:59] LABS: POTASSIUM 3.9 mmol/L (3.5-5.1)
[2016-11-26 14:01] LABS: CREATININE 0.4 mg/dl (0.44-1.00)
[2016-11-26 16:35] VITALS: BP 180/86; PULSE 78; RESP 14
[2016-11-26] MEDS ORDERED: BISACODYL (EC) 5 MG TAB PO ONE (18:00)
[2016-11-26] MEDS: METOCLOPRAMIDE 10 MG INJ IV PRN (18:35)
--- NOTE | 2016-11-26 19:13 | PN ---
Date/Time of Note Date/Time of Note DATE: 11/26/16 TIME: 19:12 Assessment/Plan VTE Prophylaxis VTE Prophylaxis Intervention: contraindicated VTE Contraindication Reason: sx procedure on lower extremity Lines/Catheters IV [facility] [place] Urinary Cath still in place: No Assessment/Plan Chief Complaint/Hosp Course 1. Right lower extremity gangrenous wound with infection of 4th and 5th toe. The patient is S/P incision and drainage of the 4th and 5th toe with amputation of the right third toe by vascular surgery on 11/20/2016. on vanco/cefepime and Flagyl. Seen by podiatry ID and wound care as well as vascular surgery possible procedure tomorrow on the right foot will await further recommendations from podiatry/vascular surgery. Pain medication will be adjusted to patient comfort, currently on Dilaudid IV. 2. Type 2 diabetes mellitus. Hemoglobin A1c 6.5. The patient will be maintained on sliding scale insulin along with Lantus insulin and premeal insulin. Will hold if blood sugars are below 70. As patient has not been tolerating her diet due to vomiting, Zofran is ordered, will continue to follow. 3. Vomitting. Etiology unknown at this time possible medication reaction versus viral illness. Afebrile CBC, BMP, and lactic acid within normal limits, no diarrhea, will start on Zofran and switch to Reglan if it does not work, patient currently denies any abdominal pain. We will continue to follow this, patient does not appear toxic. 4. Essential hypertension. controlled 5. Peripheral vascular disease. 6. Diabetic neuropathy. The patient will be continued on gabapentin. 7. Normocytic normochromic anemia. The patient's H and H will be monitored closely. Iron panel showing iron deficiency. Continue iron supplements. 8. Vitamin D deficiency. Continue vitamin D supplements. 9. DVT prophylaxis. Chemical DVT prophylaxis to be resumed once cleared by surgery. Problems: Subjective 24 Hr Interval Summary Free Text/Dictation Patient states her pain is not well controlled. She also has had 2 episodes of vomiting today denies any abdominal pain or fevers or diarrhea. No blood in the vomitus. Exam/Review of Systems Vital Signs Vitals Vital Signs Date Time Temp Pulse Resp B/P Pulse Ox O2 Delivery O2 Flow Rate FiO2 11/26/16 16:35 98.8 78 14 180/86 100 Room Air Intake and Output 11/25/16 11/25/16 11/26/16 15:00 23:00 07:00 Intake Total 350 ml 1360 ml 400 ml Output Total 10 ml Balance 350 ml 1350 ml 400 ml Exam General: The patient is well-developed, does appear in some mild distress secondary to pain and holding her vomitus bag in hand. The patient is alert oriented -3 . HEENT: Atraumatic, normocephalic. The pupils are equal, round and reactive. Extraocular motor are intact Neck: Supple with full range of motion. No rigidity or meningismus Chest: Nontender Lungs: Clear to auscultation bilaterally no crackles rales or wheezing Heart: Normal S1-S2, Regular rhythm and rate. No murmur Abdomen: Soft , nontender, nondistended , bowel sounds are present. No guarding no rebound tenderness , No masses or organomegaly. No costovertebral temporal angle mass Extremities: Right extremity wound Results Result Diagram: 11/26/16 1230 11/26/16 1250 Results 24 hrs Laboratory Tests Test 11/25/16 20:34 11/26/16 08:03 11/26/16 11:51 11/26/16 12:30 Bedside Glucose 173 92 94 White Blood Count 8.7 # Red Blood Count 3.59 L Hemoglobin 11.1 L Hematocrit 34.3 L Mean Corpuscular Volume 95.5 Mean Corpuscular Hemoglobin 30.9 Mean Corpuscular Hemoglobin Concent 32.4 Red Cell Distribution Width 13.5 Platelet Count 468 #H Mean Platelet Volume 9.7 Neutrophils % 78.3 H Lymphocytes % 13.6 L Monocytes % 5.4 Eosinophils % 2.0 Basophils % 0.2 Nucleated Red Blood Cells % 0.0 Neutrophils # 6.8 Lymphocytes # 1.2 Monocytes # 0.5 Eosinophils # 0.2 Basophils # 0.0 Nucleated Red Blood Cells # 0.0 Lactic Acid Level 0.7 Test 11/26/16 12:50 11/26/16 17:22 Sodium Level 140 Potassium Level 3.9 Chloride Level 101 Carbon Dioxide Level 28 Anion Gap 15 Blood Urea Nitrogen 11 Creatinine 0.40 L Glucose Level 74 Calcium Level 9.0 Bedside Glucose 76 Medications Medications Current Medications Diagnostic Test (Pha) 1 ea 1 ea 02 XX ; Start 11/20/16 at 02:00 Cefepime HCl 50 ml @ 100 mls/hr Q12 IVPB Last administered on 11/26/16 09:47 ; Admin Dose 100 MLS/HR; Start 11/19/16 at 18:30 Vancomycin HCl (Vancocin) 250 ml @ 125 mls/hr Q12H IVPB Last administered on 17:39; Admin Dose 125 MLS/HR; Start 11/19/16 at 18:00 Oxycodone/ Acetaminophen (Percocet (5/ 325)) 1 tab Q4H PRN PO PAIN Last administered on 11/22/16 20:17; Admin Dose 1 TAB; Start 11/19/16 at 18:30 Atorvastatin Calcium (Lipitor) 10 mg QHS PO Last administered on 11/25/16 20: 36; Admin Dose 10 MG; Start 11/19/16 at 21:00 Gabapentin (Neurontin) 300 mg TID PO Last administered on 11/26/16 11:55; Admin Dose 300 MG; Start 11/19/16 at 21:00 Lisinopril (Zestril) 10 mg DAILY PO Last administered on 11/26/16 09:10; Admin Dose 10 MG; Start 11/20/16 at 09:00 Oxycodone/ Acetaminophen (Percocet (5/ 325)) 2 tab Q4H PRN PO PAIN LEVEL 6-10 Last administered on 11/26/16 18:35; Admin Dose 2 TAB; Start 11/19/16 at 21:30 Miscellaneous Information 1 ea NOTE XX ; Start 11/20/16 at 08:00 Glucose (Glutose) 15 gm Q15M PRN PO DECREASED GLUCOSE; Start 11/20/16 at 08:00 Glucose (Glutose) 22.5 gm Q15M PRN PO DECREASED GLUCOSE; Start 11/20/16 at 08: 00 Dextrose (D50w Syringe) 25 ml Q15M PRN IV DECREASED GLUCOSE; Start 11/20/16 at 08:00 Dextrose (D50w Syringe) 50 ml Q15M PRN IV DECREASED GLUCOSE; Start 11/20/16 at 08:00 Glucagon (Glucagen) 1 mg Q15M PRN IM DECREASED GLUCOSE; Start 11/20/16 at 08:00 Glucose (Glutose) 15 gm Q15M PRN BUCCAL DECREASED GLUCOSE; Start 11/20/16 at 08 :00 Hydralazine HCl (Apresoline) 10 mg Q6H PRN IV SBP>160; Start 11/20/16 at 16:30 Insulin Glargine (Lantus) 6 unit DAILY@20 SC Last administered on 11/25/16 20: 37; Admin Dose 6 UNIT; Start 11/20/16 at 20:00 Cholecalciferol (Vitamin D) 2,000 unit DAILY PO Last administered on 11/25/16 08:10; Admin Dose 2,000 UNIT; Start 11/21/16 at 11:30 Famotidine (Pepcid) 20 mg BID PO Last administered on 11/26/16 11:55; Admin Dose 20 MG; Start 11/21/16 at 21:00 Clopidogrel Bisulfate 75 mg 75 mg DAILY PO Last administered on 11/26/16 09:10 ; Admin Dose 75 MG; Start 11/22/16 at 12:30 Metronidazole/N/A (Flagyl 500 Mg (Pmx)/Evac Container) 50 ml @ 50 mls/hr Q8 IVPB Last administered on 11/26/16 13:32; Admin Dose 50 MLS/HR; Start at 22:00 Ondansetron HCl (Zofran Inj) 4 mg Q4H PRN IV NAUSEA AND/OR VOMITING Last administered on 11/26/16 08:09; Admin Dose 4 MG; Start 11/24/16 at 14:30 Metoclopramide HCl (Reglan) 5 mg Q4H PRN IV VOMITTING Last administered on 11/26 18:35; Admin Dose 5 MG; Start 11/26/16 at 18:00 Docusate Sodium (Colace) 100 mg BID PO ; Start 11/26/16 at 21:00 Hydromorphone HCl (Dilaudid) 1.5 mg Q4H PRN IV PAIN; Start 11/26/16 at 18:00 SOHA HUYNH Nov 26, 2016 19:13
--- NOTE | 2016-11-26 19:28 | CONS ---
Date/Time of Note Date/Time of Note DATE: 11/26/16 TIME: 19:25 Assessment/Plan Assessment/Plan Chief Complaint/Hosp Course ID PROGRESS NOTE CURRENT ABX => #7 Vanco IV + Cefepime + Flagyl 24H INTERVAL SUMMARY => POD #6 =>S/P incision and drainage of the 4th and 5th toe with amputation of the right third toe by vascular surgery on 11/20/2016. * Doing fairly well -- A/A/O pain issues, she appears to be coping well, no fevers, WBC normal, No N/V/D -- seen by APC today * A/A/O -> Desire is for limb salvage, wound vac removed and pending re- evaluation this week by APC team => possible further debride vs wound vac * She has peripheral line patent in right extremity -- tells me she had a PICC that was removed a few weeks ago due to LUEXT edema. We discussed possibility need for future PICC, at this time she is doing well with PIV. PHYSICAL EXAMINATION: GENERAL: VSS, NAD, Afebrile -> pleasant 51yo F Belarusian speaking w/limited [place]orese -- we are able to communicate HEENT: Unremarkable NECK: Supple, trach-midline CHEST: Rise symmetrical, without dyspnea on observation HEART: Pulse RRR ABDOMEN: Soft, benign EXTREMITIES: Warm ->(+) wound vac ID ASSESSMENT 51 yo F vasculopath w/PMHx CAD, PAD admit with: 51-year-old female with numerous problems, who comes in with vascular problems admit with: 1. Right lower extremity gangrene => LIMB SALVAGE PLAN * POD # 11/20/16 =>S/P incision and drainage of the 4th and 5th toe with amputation of the right third toe by vascular surgery 2. PAD -> Bilateral lower extremity atherosclerosis. * s/p RLEXT angiogram/femoral popliteal angioplasty and her anterior tibial and dorsalis pedis artery angioplasty. 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 Diabetes w/complication of severe CV disease and polyneuropathies 5. Hypercholesterolemia. (-)MRSA Nares INVASIVES: PIV, ABX ALLERGY: NKDA CURRENT ABX: DAY #7 => Vanco IV + Cefepime + Flagyl ID RECOMMENDATIONS 1. Continue current ABX -> She may require new PICC Placement if plan is for DC to , defer to primary provider 2. Vac will removed -> May require further dbridements, await APC recommendations . . . Problems: Consultation Date/Type/Reason Admit Date/Time Nov 19, 2016 at 11:38 Type of Consultation: ID Exam/Review of Systems Vital Signs Vitals Vital Signs Date Time Temp Pulse Resp B/P Pulse Ox O2 Delivery O2 Flow Rate FiO2 11/26/16 16:35 98.8 78 14 180/86 100 Room Air Intake and Output 11/25/16 11/25/16 11/26/16 15:00 23:00 07:00 Intake Total 350 ml 1360 ml 400 ml Output Total 10 ml Balance 350 ml 1350 ml 400 ml Results Result Diagram: 11/26/16 1230 11/26/16 1250 Results 24 hrs Laboratory Tests Test 11/25/16 20:34 11/26/16 08:03 11/26/16 11:51 11/26/16 12:30 Bedside Glucose 173 92 94 White Blood Count 8.7 # Red Blood Count 3.59 L Hemoglobin 11.1 L Hematocrit 34.3 L Mean Corpuscular Volume 95.5 Mean Corpuscular Hemoglobin 30.9 Mean Corpuscular Hemoglobin Concent 32.4 Red Cell Distribution Width 13.5 Platelet Count 468 #H Mean Platelet Volume 9.7 Neutrophils % 78.3 H Lymphocytes % 13.6 L Monocytes % 5.4 Eosinophils % 2.0 Basophils % 0.2 Nucleated Red Blood Cells % 0.0 Neutrophils # 6.8 Lymphocytes # 1.2 Monocytes # 0.5 Eosinophils # 0.2 Basophils # 0.0 Nucleated Red Blood Cells # 0.0 Lactic Acid Level 0.7 Test 11/26/16 12:50 11/26/16 17:22 Sodium Level 140 Potassium Level 3.9 Chloride Level 101 Carbon Dioxide Level 28 Anion Gap 15 Blood Urea Nitrogen 11 Creatinine 0.40 L Glucose Level 74 Calcium Level 9.0 Bedside Glucose 76 Medications Medications Current Medications Diagnostic Test (Pha) 1 ea ea 02 XX ; Start 11/20/16 at 02:00 Cefepime HCl 50 ml @ 100 mls/hr Q12 IVPB Last administered on 11/26/16t 09:47 ; Admin Dose 100 MLS/HR; Start 11/19/16 at 18:30 Vancomycin HCl (Vancocin) 250 ml @ 125 mls/hr Q12H IVPB Last administered on 17:39; Admin Dose 125 MLS/HR; Start 11/19/16 at 18:00 Oxycodone/ Acetaminophen (Percocet (5/ 325)) 1 tab Q4H PRN PO PAIN Last administered on 11/22/16 20:17; Admin Dose 1 TAB; Start 11/19/16 at 18:30 Atorvastatin Calcium (Lipitor) 10 mg QHS PO Last administered on 11/25/16 20: 36; Admin Dose 10 MG; Start 11/19/16 at 21:00 Gabapentin (Neurontin) 300 mg TID PO Last administered on 11/26/16 11:55; Admin Dose 300 MG; Start 11/19/16 at 21:00 Lisinopril (Zestril) 10 mg DAILY PO Last administered on 11/26/16 09:10; Admin Dose 10 MG; Start 11/20/16 at 09:00 Oxycodone/ Acetaminophen (Percocet (5/ 325)) 2 tab Q4H PRN PO PAIN LEVEL 6-10 Last administered on 11/26/16 18:35; Admin Dose 2 TAB; Start 11/19/16 at 21:30 Miscellaneous Information 1 ea NOTE XX ; Start 11/20/16 at 08:00 Glucose (Glutose) 15 gm Q15M PRN PO DECREASED GLUCOSE; Start 11/20/16 at 08:00 Glucose (Glutose) 22.5 gm Q15M PRN PO DECREASED GLUCOSE; Start 11/20/16 at 08: 00 Dextrose (D50w Syringe) 25 ml Q15M PRN IV DECREASED GLUCOSE; Start 11/20/16 at 08:00 Dextrose (D50w Syringe) 50 ml Q15M PRN IV DECREASED GLUCOSE; Start 11/20/16 at 08:00 Glucagon (Glucagen) 1 mg Q15M PRN IM DECREASED GLUCOSE; Start 11/20/16 at 08:00 Glucose (Glutose) 15 gm Q15M PRN BUCCAL DECREASED GLUCOSE; Start 11/20/16 at 08 :00 Hydralazine HCl (Apresoline) 10 mg Q6H PRN IV SBP>160; Start 11/20/16 at 16:30 Insulin Glargine (Lantus) 6 unit DAILY@20 SC Last administered on 11/25/16 20: 37; Admin Dose 6 UNIT; Start 11/20/16 at 20:00 Cholecalciferol (Vitamin D) 2,000 unit DAILY PO Last administered on 11/25/16 08:10; Admin Dose 2,000 UNIT; Start 11/21/16 at 11:30 Famotidine (Pepcid) 20 mg BID PO Last administered on 11/26/16 11:55; Admin Dose 20 MG; Start 11/21/16 at 21:00 Clopidogrel Bisulfate 75 mg 75 mg DAILY PO Last administered on 11/26/16 09:10 ; Admin Dose 75 MG; Start 11/22/16 at 12:30 Metronidazole/N/A (Flagyl 500 Mg (Pmx)/Evac Container) 50 ml @ 50 mls/hr Q8 IVPB Last administered on 11/26/16 13:32; Admin Dose 50 MLS/HR; Start at 22:00 Ondansetron HCl (Zofran Inj) 4 mg Q4H PRN IV NAUSEA AND/OR VOMITING Last administered on 11/26/16 08:09; Admin Dose 4 MG; Start 11/24/16 at 14:30 Metoclopramide HCl (Reglan) 5 mg Q4H PRN IV VOMITTING Last administered on 11/26 18:35; Admin Dose 5 MG; Start 11/26/16 at 18:00 Docusate Sodium (Colace) 100 mg BID PO ; Start 11/26/16 at 21:00 Hydromorphone HCl (Dilaudid) 1.5 mg Q4H PRN IV PAIN; Start 11/26/16 at 18:00 MICHELLE SOLORZANO NP Nov 26, 2016 19:27
[2016-11-26 19:30] LABS: ADD UMIC YES; URINE BILIRUBIN (Dip) NEGATIVE (NEGATIVE); URINE BLOOD (Dip) NEGATIVE (NEGATIVE); URINE COLOR LT. YELLOW (YELLOW); URINE GLUCOSE (Dip) NEGATIVE (NEGATIVE); URINE KETONES (Dip) TRACE (NEGATIVE); URINE LEUKOCYTE ESTERASE (Dip) TRACE (NEGATIVE); URINE NITRITE (Dip) NEGATIVE (NEGATIVE); URINE TOTAL PROTEIN (Dip) NEGATIVE (NEGATIVE); URINE UROBILINOGEN (Dip) 0.2 E.U./dL (0.1-1.0)
[2016-11-26 19:48] LABS: BACTERIA,URINE RARE; SQUAMOUS EPITHELIAL CELL,UR MODERATE; URINE RBCS NONE SEEN /HPF (0)
[2016-11-26] MEDS: HYDROmorphONE 2 MG/ML SYG IV PRN (19:54)
[2016-11-26] MEDS: INSULIN GLARGINE [LANtus] 3 ML PEN SC SCH (20:41)
[2016-11-26] MEDS: ATORVASTATIN 10 MG TAB PO SCH (20:42)
[2016-11-26] MEDS: DOCUSATE SODIUM 100 MG CAP PO SCH (20:42)
[2016-11-26 20:56] VITALS: BP 139/69; RESP 18
[2016-11-26] MEDS: KETOROLAC 30 MG INJ IV PRN (23:43)
[2016-11-26 23:52] VITALS: BP 165/77; PULSE 74; RESP 20
[2016-11-27] MEDS: ACCU-CHEK XX SCH (02:00)
[2016-11-27] MEDS: HYDROmorphONE 2 MG/ML SYG IV PRN ×2 (03:29→09:02)
[2016-11-27] MEDS: metroNIDAZOLE 500 MG/NS (PMX) 250 MG in EVAC CONTAINER 1 BOTTLE IVPB SCH ×3 (05:43→22:49)
[2016-11-27] MEDS: VANCOMYCIN 1 GM in NS 250 ML IVPB SCH ×2 (06:41→17:42)
[2016-11-27 06:43] LABS: ADD SCAN DIFF NO
[2016-11-27 06:48] LABS: BASOPHILS % 0.1 % (0.0-2.0); EOSINOPHILS # 0.3 10^3/ul (0.0-0.5); EOSINOPHILS % 3.5 % (0.0-7.0); HEMATOCRIT 33.6 % (37.0-47.0); HEMOGLOBIN 10.5 g/dl (12.0-16.0); LYMPHOCYTES # 1.6 10^3/ul (0.8-2.9); LYMPHOCYTES % 19.2 % (15.0-51.0); MEAN CORPUSCULAR HEMOGLOBIN 29.9 pg (29.0-33.0); MEAN CORPUSCULAR HGB CONC 31.3 g/dl (32.0-37.0); MEAN CORPUSCULAR VOLUME 95.7 fl (82.0-101.0); MEAN PLATELET VOLUME 9.9 fl (7.4-10.4); MONOCYTE # 0.8 10^3/ul (0.3-0.9); NEUTROPHIL # 5.5 10^3/ul (1.6-7.5); NEUTROPHILS % 66.8 % (39.0-77.0); PLATELET COUNT 439 10^3/UL (140-415); RED BLOOD COUNT 3.51 10^6/ul (4.20-5.40); RED CELL DISTRIBUTION WIDTH 13.7 % (11.5-14.5); WHITE BLOOD COUNT 8.2 10^3/ul (4.8-10.8)
[2016-11-27] MEDS: ONDANSETRON 4 MG INJ IV PRN (06:49)
[2016-11-27 06:56] LABS: INR 1.18; PROTIME 15.1 Sec (12.2-14.2); PT RATIO 1.2
[2016-11-27 06:57] LABS: PARTIAL THROMBOPLASTIN TIME 46.7 Sec (25.0-35.0); THROMBIN TIME 15.1 SEC (13.8-19.1)
[2016-11-27 07:15] LABS: ALBUMIN 3.7 g/dl (3.3-4.9)
[2016-11-27 07:16] LABS: POTASSIUM 4.1 mmol/L (3.5-5.1)
[2016-11-27 07:18] LABS: ALBUMIN/GLOBULIN RATIO 0.94; BILIRUBIN,INDIRECT 0.1 mg/dl (0-1.1); BILIRUBIN,TOTAL 0.1 mg/dl (0.2-1.3); CALCIUM 9.3 mg/dl (8.4-10.2); CREATININE 0.53 mg/dl (0.44-1.00); TOTAL PROTEIN 7.6 g/dl (6.1-8.1)
[2016-11-27] MEDS: INSULIN ASPART [NOVOLOG] 3 ML PEN SC SCH ×7 (07:35→21:00)
[2016-11-27 08:52] VITALS: BP 130/60; RESP 16
[2016-11-27] MEDS: GABAPENTIN 300 MG CAP PO SCH ×4 (09:01→22:01)
[2016-11-27] MEDS: DOCUSATE SODIUM 100 MG CAP PO SCH ×2 (09:01→22:01)
[2016-11-27] MEDS: CEFEPIME 1GM/50 ML (PMX) 50 ML IVPB SCH ×2 (09:01→22:00)
[2016-11-27] MEDS: CHOLECALCIFEROL 2,000 UNIT CAP PO SCH (09:01)
[2016-11-27] MEDS: CLOPIDOGREL 75 MG TAB PO SCH (09:01)
[2016-11-27] MEDS: FAMOTIDINE 20 MG TAB PO SCH ×2 (09:01→22:01)
[2016-11-27] MEDS: LISINOPRIL 10 MG TAB PO SCH (09:02)
[2016-11-27] MEDS: METOCLOPRAMIDE 10 MG INJ IV PRN ×2 (09:59→16:04)
[2016-11-27] MEDS: OXYCODONE/ACETAMINOPHEN (5/325) TAB PO PRN ×2 (11:57→17:45)
[2016-11-27 15:53] VITALS: BP 129/57; PULSE 71; RESP 12
--- NOTE | 2016-11-27 17:08 | PN ---
Date/Time of Note Date/Time of Note DATE: 11/27/16 TIME: 17:02 Assessment/Plan VTE Prophylaxis VTE Prophylaxis Intervention: contraindicated VTE Contraindication Reason: sx procedure on lower extremity Lines/Catheters IV [facility] Saline Lock Urinary Cath still in place: No Assessment/Plan Chief Complaint/Hosp Course 1. Right lower extremity gangrenous wound with infection of 4th and 5th toe. The patient is S/P incision and drainage of the 4th and 5th toe with amputation of the right third toe by vascular surgery on 11/20/2016. on vanco/cefepime and Flagyl. Seen by APC today, awaiting further recs. Awaiting further recs from podiatry/vascular surgery. 2. Type 2 diabetes mellitus. Hemoglobin A1c 6.5. The patient will be maintained on sliding scale insulin along with Lantus insulin and premeal insulin. Will hold if blood sugars are below 70. 3. Vomitting. Improved, but still having some occasional nausea. Continue to follow and antiemetics. 4. Constipation: On colace, will try miralax today as bisacodyl didn't work yesterday. Narcotic meds likely contributing to this as well. 5. Essential hypertension. controlled 6. Peripheral vascular disease. 7. Diabetic neuropathy. The patient will be continued on gabapentin. 8. Normocytic normochromic anemia. The patient's H and H will be monitored closely. Iron panel showing iron deficiency. Continue iron supplements. 9. Vitamin D deficiency. Continue vitamin D supplements. 10. DVT prophylaxis. Chemical DVT prophylaxis to be resumed once cleared by surgery. Problems: Subjective 24 Hr Interval Summary Free Text/Dictation Patient reports no more vomitting since yesterday, though she did have some nausea today. Has still not had a BM. Exam/Review of Systems Vital Signs Vitals Vital Signs Date Time Temp Pulse Resp B/P Pulse Ox O2 Delivery O2 Flow Rate FiO2 11/27/16 15:53 98.8 71 12 129/57 99 Room Air Intake and Output 11/26/16 11/26/16 11/27/16 15:00 23:00 07:00 Intake Total 350 ml 800 ml 500 ml Balance 350 ml 800 ml 500 ml Exam General: Lying comfortably in bed, in no acute distress. The patient is alert oriented -3 . HEENT: Atraumatic, normocephalic. The pupils are equal, round and reactive. Neck: Supple with full range of motion. No rigidity or meningismus Chest: Nontender Lungs: Clear to auscultation bilaterally no crackles rales or wheezing Heart: Normal S1-S2, Regular rhythm and rate. No murmur Abdomen: Soft , nontender, nondistended , bowel sounds are present. No guarding no rebound tenderness , No masses or organomegaly. No costovertebral temporal angle mass Extremities: Right extremity wound Results Result Diagram: 11/27/16 0540 11/27/16 0540 Results 24 hrs Laboratory Tests Test 11/26/16 17:22 11/26/16 18:30 11/26/16 20:39 11/27/16 05:40 Bedside Glucose 76 143 Urine Color LT. YELLOW Urine Clarity CLEAR Urine pH 6.0 Urine Specific [place] <=1.005 L Urine Ketones TRACE H Urine Nitrite NEGATIVE Urine Bilirubin NEGATIVE Urine Urobilinogen 0.2 E.U./dL Urine Leukocyte Esterase TRACE H Urine Microscopic RBC NONE SEEN Urine Microscopic WBC 2-5 Urine Squamous Epithelial Cells MODERATE Urine Bacteria RARE Urine Hemoglobin NEGATIVE Urine Glucose NEGATIVE Urine Total Protein NEGATIVE White Blood Count 8.2 Red Blood Count 3.51 L Hemoglobin 10.5 L Hematocrit 33.6 L Mean Corpuscular Volume 95.7 Mean Corpuscular Hemoglobin 29.9 Mean Corpuscular Hemoglobin Concent 31.3 L Red Cell Distribution Width 13.7 Platelet Count 450 H Mean Platelet Volume 9.9 Neutrophils % 66.8 Lymphocytes % 19.2 Monocytes % 10.0 Eosinophils % 3.5 Basophils % 0.1 Nucleated Red Blood Cells % 0.0 Neutrophils # 5.5 Lymphocytes # 1.6 Monocytes # 0.8 Eosinophils # 0.3 Basophils # 0.0 Nucleated Red Blood Cells # 0.0 Prothrombin Time 15.1 H Prothrombin Time Ratio 1.2 INR International Normalized Ratio 1.18 Activated Partial Thromboplast Time 46.7 H Thrombin Time 15.1 Sodium Level 139 Potassium Level 4.1 Chloride Level 99 Carbon Dioxide Level 29 Anion Gap 15 Blood Urea Nitrogen 13 Creatinine 0.53 Glucose Level 80 Calcium Level 9.3 Total Bilirubin 0.1 L Direct Bilirubin 0.00 Indirect Bilirubin 0.1 Aspartate Amino Transf (AST/SGOT) 30 Alanine Aminotransferase (ALT/SGPT) 24 Alkaline Phosphatase 130 H Total Protein 7.6 Albumin 3.7 Globulin 3.90 H Albumin/Globulin Ratio 0.94 Test 11/27/16 07:45 11/27/16 11:42 11/27/16 15:16 Bedside Glucose 86 184 152 Medications Medications Current Medications Diagnostic Test (Pha) 1 ea 1 ea 02 XX ; Start 11/20/16 at 02:00 Cefepime HCl 50 ml @ 100 mls/hr Q12 IVPB Last administered on 11/27/16 09:01 ; Admin Dose 100 MLS/HR; Start 11/19/16 at 18:30 Vancomycin HCl (Vancocin) 250 ml @ 125 mls/hr Q12H IVPB Last administered on 06:41; Admin Dose 125 MLS/HR; Start 11/19/16 at 18:00 Oxycodone/ Acetaminophen (Percocet (5/ 325)) 1 tab Q4H PRN PO PAIN Last administered on 11/22/16 20:17; Admin Dose 1 TAB; Start 11/19/16 at 18:30 Atorvastatin Calcium (Lipitor) 10 mg QHS PO Last administered on 11/26/16 20: 42; Admin Dose 10 MG; Start 11/19/16 at 21:00 Gabapentin (Neurontin) 300 mg TID PO Last administered on 11/27/16 13:27; Admin Dose 300 MG; Start 11/19/16 at 21:00 Lisinopril (Zestril) 10 mg DAILY PO Last administered on 11/27/16 09:02; Admin Dose 10 MG; Start 11/20/16 at 09:00 Oxycodone/ Acetaminophen (Percocet (5/ 325)) 2 tab Q4H PRN PO PAIN LEVEL 6-10 Last administered on 11/27/16 11:57; Admin Dose 2 TAB; Start 11/19/16 at 21:30 Miscellaneous Information 1 ea NOTE XX ; Start 11/20/16 at 08:00 Glucose (Glutose) 15 gm Q15M PRN PO DECREASED GLUCOSE; Start 11/20/16 at 08:00 Glucose (Glutose) 22.5 gm Q15M PRN PO DECREASED GLUCOSE; Start 11/20/16 at 08: 00 Dextrose (D50w Syringe) 25 ml Q15M PRN IV DECREASED GLUCOSE; Start 11/20/16 at 08:00 Dextrose (D50w Syringe) 50 ml Q15M PRN IV DECREASED GLUCOSE; Start 11/20/16 at 08:00 Glucagon (Glucagen) 1 mg Q15M PRN IM DECREASED GLUCOSE; Start 11/20/16 at 08:00 Glucose (Glutose) 15 gm Q15M PRN BUCCAL DECREASED GLUCOSE; Start 11/20/16 at 08 :00 Hydralazine HCl (Apresoline) 10 mg Q6H PRN IV SBP>160; Start 11/20/16 at 16:30 Insulin Glargine (Lantus) 6 unit DAILY@20 SC Last administered on 11/26/16 20: 41; Admin Dose 6 UNIT; Start 11/20/16 at 20:00 Cholecalciferol (Vitamin D) 2,000 unit DAILY PO Last administered on 11/27/16 09:01; Admin Dose 2,000 UNIT; Start 11/21/16 at 11:30 Famotidine (Pepcid) 20 mg BID PO Last administered on 11/27/16 09:01; Admin Dose 20 MG; Start 11/21/16 at 21:00 Clopidogrel Bisulfate 75 mg 75 mg DAILY PO Last administered on 11/27/16 09:01 ; Admin Dose 75 MG; Start 11/22/16 at 12:30 Metronidazole/N/A (Flagyl 500 Mg (Pmx)/Evac Container) 50 ml @ 50 mls/hr Q8 IVPB Last administered on 11/27/16 13:29; Admin Dose 50 MLS/HR; Start at 22:00 Ondansetron HCl (Zofran Inj) 4 mg Q4H PRN IV NAUSEA AND/OR VOMITING Last administered on 11/27/16 06:49; Admin Dose 4 MG; Start 11/24/16 at 14:30 Metoclopramide HCl (Reglan) 5 mg Q4H PRN IV VOMITTING Last administered on 11/27 16:04; Admin Dose 5 MG; Start 11/26/16 at 18:00 Docusate Sodium (Colace) 100 mg BID PO Last administered on 11/27/16 09:01; Admin Dose 100 MG; Start 11/26/16 at 21:00 Hydromorphone HCl (Dilaudid) 1.5 mg Q4H PRN IV PAIN Last administered on 4/28/ 17at 09:02; Admin Dose 1.5 MG; Start 11/26/16 at 18:00 Ketorolac Tromethamine (Toradol) 30 mg Q6H PRN IV PAIN Last administered on t 23:43; Admin Dose 30 MG; Start 11/27/16 at 00:00; Stop 11/30/16 at 00:00 SOHA HUYNH Nov 27, 2016 17:08
[2016-11-27] MEDS: POLYETHYLENE GLYCOL 17 GM PACKET PO PRN (17:34)
--- NOTE | 2016-11-27 18:46 | PN ---
Date/Time of Note Date/Time of Note DATE: 11/27/16 TIME: 18:43 Assessment/Plan Lines/Catheters IV Catheter Type (from [facility]): Saline Lock Vee in Place (from [facility]): No Assessment/Plan Chief Complaint/Hosp Course -Bilateral lower extremity atherosclerosis with gangrene: It seems the patient has developed a worsening right second toe gangrene now and previous amputation site. Patient does have severe pedal disease and perfusion past the forefoot is limited. She is S/P angiogram and intervention in order to increase her infrapopliteal perfusion. Unfortunately, we may be limited with our limb salvage for the patient and she may require further debridements and major amputation. -S/P Right 3rd toe ray amputation, 4&5th toe metatarsal amputation and debridement of stump, application of Acell graft and wound VAC. -Continue with IV antibiotics -Optimize vascular status (BP meds, diet, nutrition, exercise, sugar control, antiplatelets). -Discussed findings, plan and management with the patient, she understands with a certified documentation billing clerk in regards to our limitations of vascular interventions and limb salvage and possibility of further debridements/major amputations. Patient wants everything to be done to salvage her limb. I had a family meeting this afternoon and reiterated our options of attempting TMA but likelihood of wound healing is low, She will benefit most with a BKA given that she does not have contracture and would like to have the option of an eventual prosthetic. -Thank you for allowing us to partake in the care of your patient. Please call with any questions. Problems: Subjective 24 Hr Interval Summary no new vascular events overnight Exam/Review of Systems Vital Signs Vitals Vital Signs Date Time Temp Pulse Resp B/P Pulse Ox O2 Delivery O2 Flow Rate FiO2 11/27/16 15:53 98.8 71 12 129/57 99 Room Air Intake and Output 11/26/16 11/26/16 11/27/16 15:00 23:00 07:00 Intake Total 350 ml 800 ml 500 ml Balance 350 ml 800 ml 500 ml Exam Free Text/Dictation GENERAL: Alert and oriented x3. PULMONARY: Clear to auscultation bilaterally. CARDIOVASCULAR: S1, S2 present. ABDOMEN: Soft, nontender, nondistended. Bowel sounds positive. EXTREMITIES: Right lower extremity: Palpable femoral pulse, nonpalpable pedal pulse. Motor , sensory intact. Capillary refill 3 seconds. Amputation site is gangrene and gangrene development of the 2nd toe, dorsal foot with an eschar Results Result Diagram: 11/27/16 0540 11/27/16 0540 JOAQUINA MCKEON MD Nov 27, 2016 18:46
--- NOTE | 2016-11-27 21:07 | CONS ---
Date/Time of Note Date/Time of Note DATE: 11/27/16 TIME: 21:05 Assessment/Plan Assessment/Plan Chief Complaint/Hosp Course ID PROGRESS NOTE CURRENT ABX => #8 Vanco IV + Cefepime + Flagyl 24H INTERVAL SUMMARY => POD #7 =>S/P incision and drainage of the 4th and 5th toe with amputation of the right third toe by vascular surgery on 11/20/2016. * Clinically stable, on appropriate ABX, no fevers, NAD, lethargic, has pain coping well, No N/V/D PHYSICAL EXAMINATION: GENERAL: VSS, NAD, Afebrile -> pleasant 51yo F Chinese speaking w/limited Israeli -- we are able to communicate HEENT: Unremarkable NECK: Supple, trach-midline CHEST: Rise symmetrical, without dyspnea on observation HEART: Pulse RRR ABDOMEN: Soft, benign EXTREMITIES: Warm ->(+) wound vac ID ASSESSMENT 51 yo F vasculopath w/PMHx CAD, PAD admit with: 51-year-old female with numerous problems, who comes in with vascular problems admit with: 1. Right lower extremity gangrene => LIMB SALVAGE PLAN * POD # 11/20/16 =>S/P incision and drainage of the 4th and 5th toe with amputation of the right third toe by vascular surgery 2. PAD -> Bilateral lower extremity atherosclerosis. * s/p RLEXT angiogram/femoral popliteal angioplasty and her anterior tibial and dorsalis pedis artery angioplasty. 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 Diabetes w/complication of severe CV disease and polyneuropathies 5. Hypercholesterolemia. (-)MRSA Nares INVASIVES: PIV, ABX ALLERGY: NKDA CURRENT ABX: DAY #8 => Vanco IV + Cefepime + Flagyl ID RECOMMENDATIONS 1. PLAN REMAINS THE SAMPE =>Continue current ABX -> She may require new PICC Placement if plan is for DC to , defer to primary provider 2. Vac will removed -> May require further dbridements, await APC recommendations . . . Problems: Consultation Date/Type/Reason Admit Date/Time Nov 19, 2016 at 11:38 Type of Consultation: ID Exam/Review of Systems Vital Signs Vitals Vital Signs Date Time Temp Pulse Resp B/P Pulse Ox O2 Delivery O2 Flow Rate FiO2 11/27/16 15:53 98.8 71 12 129/57 99 Room Air Intake and Output 11/26/16 11/26/16 11/27/16 15:00 23:00 07:00 Intake Total 350 ml 800 ml 500 ml Balance 350 ml 800 ml 500 ml Results Result Diagram: 11/27/16 0540 11/27/16 0540 Results 24 hrs Laboratory Tests Test 11/27/16 05:40 11/27/16 07:45 11/27/16 11:42 11/27/16 15:16 White Blood Count 8.2 Red Blood Count 3.51 L Hemoglobin 10.5 L Hematocrit 33.6 L Mean Corpuscular Volume 95.7 Mean Corpuscular Hemoglobin 29.9 Mean Corpuscular Hemoglobin Concent 31.3 L Red Cell Distribution Width 13.7 Platelet Count 450 H Mean Platelet Volume 9.9 Neutrophils % 66.8 Lymphocytes % 19.2 Monocytes % 10.0 Eosinophils % 3.5 Basophils % 0.1 Nucleated Red Blood Cells % 0.0 Neutrophils # 5.5 Lymphocytes # 1.6 Monocytes # 0.8 Eosinophils # 0.3 Basophils # 0.0 Nucleated Red Blood Cells # 0.0 Prothrombin Time 15.1 H Prothrombin Time Ratio 1.2 INR International Normalized Ratio 1.18 Activated Partial Thromboplast Time 46.7 H Thrombin Time 15.1 Sodium Level 139 Potassium Level 4.1 Chloride Level 99 Carbon Dioxide Level 29 Anion Gap 15 Blood Urea Nitrogen 13 Creatinine 0.53 Glucose Level 80 Calcium Level 9.3 Total Bilirubin 0.1 L Direct Bilirubin 0.00 Indirect Bilirubin 0.1 Aspartate Amino Transf (AST/SGOT) 30 Alanine Aminotransferase (ALT/SGPT) 24 Alkaline Phosphatase 130 H Total Protein 7.6 Albumin 3.7 Globulin 3.90 H Albumin/Globulin Ratio 0.94 Bedside Glucose 86 184 152 Test 11/27/16 17:27 Bedside Glucose 134 Medications Medications Current Medications Diagnostic Test (Pha) 1 ea 1 ea 02 XX ; Start 11/20/16 at 02:00 Cefepime HCl 50 ml @ 100 mls/hr Q12 IVPB Last administered on 11/27/16 09:01 ; Admin Dose 100 MLS/HR; Start 11/19/16 at 18:30 Vancomycin HCl (Vancocin) 250 ml @ 125 mls/hr Q12H IVPB Last administered on 17:42; Admin Dose 125 MLS/HR; Start 11/19/16 at 18:00 Oxycodone/ Acetaminophen (Percocet (5/ 325)) 1 tab Q4H PRN PO PAIN Last administered on 11/22/16 20:17; Admin Dose 1 TAB; Start 11/19/16 at 18:30 Atorvastatin Calcium (Lipitor) 10 mg QHS PO Last administered on 11/26/16 20: 42; Admin Dose 10 MG; Start 11/19/16 at 21:00 Gabapentin (Neurontin) 300 mg TID PO Last administered on 11/27/16 13:27; Admin Dose 300 MG; Start 11/19/16 at 21:00 Lisinopril (Zestril) 10 mg DAILY PO Last administered on 11/27/16 09:02; Admin Dose 10 MG; Start 11/20/16 at 09:00 Oxycodone/ Acetaminophen (Percocet (5/ 325)) 2 tab Q4H PRN PO PAIN LEVEL 6-10 Last administered on 11/27/16 17:45; Admin Dose 2 TAB; Start 11/19/16 at 21:30 Miscellaneous Information 1 ea NOTE XX ; Start 11/20/16 at 08:00 Glucose (Glutose) 15 gm Q15M PRN PO DECREASED GLUCOSE; Start 11/20/16 at 08:00 Glucose (Glutose) 22.5 gm Q15M PRN PO DECREASED GLUCOSE; Start 11/20/16 at 08: 00 Dextrose (D50w Syringe) 25 ml Q15M PRN IV DECREASED GLUCOSE; Start 11/20/16 at 08:00 Dextrose (D50w Syringe) 50 ml Q15M PRN IV DECREASED GLUCOSE; Start 11/20/16 at 08:00 Glucagon (Glucagen) 1 mg Q15M PRN IM DECREASED GLUCOSE; Start 11/20/16 at 08:00 Glucose (Glutose) 15 gm Q15M PRN BUCCAL DECREASED GLUCOSE; Start 11/20/16 at 08 :00 Hydralazine HCl (Apresoline) 10 mg Q6H PRN IV SBP>160; Start 11/20/16 at 16:30 Insulin Glargine (Lantus) 6 unit DAILY@20 SC Last administered on 11/26/16 20: 41; Admin Dose 6 UNIT; Start 11/20/16 at 20:00 Cholecalciferol (Vitamin D) 2,000 unit DAILY PO Last administered on 11/27/16 09:01; Admin Dose 2,000 UNIT; Start 11/21/16 at 11:30 Famotidine (Pepcid) 20 mg BID PO Last administered on 11/27/16 09:01; Admin Dose 20 MG; Start 11/21/16 at 21:00 Clopidogrel Bisulfate 75 mg 75 mg DAILY PO Last administered on 11/27/16 09:01 ; Admin Dose 75 MG; Start 11/22/16 at 12:30 Metronidazole/N/A (Flagyl 500 Mg (Pmx)/Evac Container) 50 ml @ 50 mls/hr Q8 IVPB Last administered on 11/27/16 13:29; Admin Dose 50 MLS/HR; Start at 22:00 Ondansetron HCl (Zofran Inj) 4 mg Q4H PRN IV NAUSEA AND/OR VOMITING Last administered on 11/27/16 06:49; Admin Dose 4 MG; Start 11/24/16 at 14:30 Metoclopramide HCl (Reglan) 5 mg Q4H PRN IV VOMITTING Last administered on 11/27 16:04; Admin Dose 5 MG; Start 11/26/16 at 18:00 Docusate Sodium (Colace) 100 mg BID PO Last administered on 11/27/16 09:01; Admin Dose 100 MG; Start 11/26/16 at 21:00 Hydromorphone HCl (Dilaudid) 1.5 mg Q4H PRN IV PAIN Last administered on 09:02; Admin Dose 1.5 MG; Start 11/26/16 at 18:00 Ketorolac Tromethamine (Toradol) 30 mg Q6H PRN IV PAIN Last administered on 23:43; Admin Dose 30 MG; Start 11/27/16 at 00:00; Stop 11/30/16 at 00:00 Polyethylene Glycol (Miralax) 17 gm DAILY PRN PO CONSTIPATION Last administered on 11/27/16 17:34; Admin Dose 17 GM; Start 11/27/16 at 17:00 MICHELLE SOLORZANO NP Nov 27, 2016 21:07
[2016-11-27 21:22] VITALS: BP 151/65; RESP 18
[2016-11-27] MEDS ORDERED: MAGNESIUM HYDROXIDE 30ML CUP PO ONE (22:00)
[2016-11-27] MEDS: ATORVASTATIN 10 MG TAB PO SCH (22:01)
[2016-11-27] MEDS: INSULIN GLARGINE [LANtus] 3 ML PEN SC SCH (22:03)
[2016-11-27] MEDS: KETOROLAC 30 MG INJ IV PRN (22:10)
[2016-11-28] MEDS: ACCU-CHEK XX SCH (02:00)
[2016-11-28] MEDS: OXYCODONE/ACETAMINOPHEN (5/325) TAB PO PRN ×3 (02:18→22:31)
[2016-11-28] MEDS: KETOROLAC 30 MG INJ IV PRN ×2 (05:02→20:16)
[2016-11-28] MEDS: VANCOMYCIN 1 GM in NS 250 ML IVPB SCH ×2 (05:17→17:48)
[2016-11-28] MEDS: metroNIDAZOLE 500 MG/NS (PMX) 250 MG in EVAC CONTAINER 1 BOTTLE IVPB SCH ×3 (07:33→22:31)
[2016-11-28] MEDS: INSULIN ASPART [NOVOLOG] 3 ML PEN SC SCH ×7 (07:35→20:45)
[2016-11-28 08:00] VITALS: BP 130/68; RESP 20
[2016-11-28] MEDS: CHOLECALCIFEROL 2,000 UNIT CAP PO SCH (08:56)
[2016-11-28] MEDS: CLOPIDOGREL 75 MG TAB PO SCH (08:56)
[2016-11-28] MEDS: DOCUSATE SODIUM 100 MG CAP PO SCH ×2 (08:56→20:45)
[2016-11-28] MEDS: FAMOTIDINE 20 MG TAB PO SCH ×2 (08:56→20:45)
[2016-11-28] MEDS: LISINOPRIL 10 MG TAB PO SCH (08:56)
[2016-11-28] MEDS: GABAPENTIN 300 MG CAP PO SCH ×3 (08:56→20:45)
[2016-11-28] MEDS: CEFEPIME 1GM/50 ML (PMX) 50 ML IVPB SCH ×2 (08:56→20:45)
--- NOTE | 2016-11-28 09:16 | PN ---
Date/Time of Note Date/Time of Note DATE: 11/28/16 TIME: 09:14 Assessment/Plan VTE Prophylaxis VTE Prophylaxis Intervention: LMWH Lines/Catheters IV [facility] Type (from [facility] Saline Lock Urinary Cath still in place: No Assessment/Plan Problems: (1) Gangrene of toe Status: Chronic Comment: Due to her vascular situation she is discussed with the vascular surgeon and they have opted to proceed with BKA. (2) Diabetes mellitus with polyneuropathy Status: Chronic Comment: On her current medication regimen her blood sugar is well controlled. Will optimize her other issues which include the lipid disturbance and bring her statin up to the recommended dosage of 40 mg day; and adjust her blood pressure for maximum control. Unfortunately usage of cilostazol in the setting will not be of benefit Qualifiers: Diabetes mellitus type: type 2 Qualified Code: E11.42 - Diabetic polyneuropathy associated with type 2 diabetes mellitus (3) Peripheral vascular disease Status: Chronic Comment: As above. Subjective 24 Hr Interval Summary Free Text/Dictation Patient lying in bed. She indicates that she is decided to proceed with BKA on the right Constitutional: no complaints (No fever chills or sweats) Respiratory: no complaints Cardiovascular: no complaints Gastrointestinal: no complaints Exam/Review of Systems Vital Signs Vitals Vital Signs Date Time Temp Pulse Resp B/P Pulse Ox O2 Delivery O2 Flow Rate FiO2 11/28/16 08:00 97.6 68 20 130/68 98 11/27/16 15:53 Room Air Intake and Output 11/27/16 11/27/16 11/28/16 15:00 23:00 07:00 Intake Total 350 ml 420 ml 400 ml Balance 350 ml 420 ml 400 ml Exam Constitutional: alert, oriented Respiratory: clear to auscultation, normal air movement Cardiovascular: nl pulses, regular rate and rhythm Extremities: other (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 especially of the third digit) Results Result Diagram: 11/27/16 0540 11/27/16 0540 Results 24 hrs Laboratory Tests Test 11/27/16 11:42 11/27/16 15:16 11/27/16 17:27 11/27/16 22:01 Bedside Glucose 184 152 134 109 Test 11/28/16 07:59 Bedside Glucose 75 Medications Medications Current Medications Diagnostic Test (Pha) 1 ea ea XX ; Start 11/20/16 at 02:00 Cefepime HCl 50 ml @ 100 mls/hr Q12 IVPB Last administered on 11/28/16 08:56 ; Admin Dose 100 MLS/HR; Start 11/19/16 at 18:30 Vancomycin HCl (Vancocin) 250 ml @ 125 mls/hr Q12H IVPB Last administered on 05:17; Admin Dose 125 MLS/HR; Start 11/19/16 at 18:00 Oxycodone/ Acetaminophen (Percocet (5/ 325)) 1 tab Q4H PRN PO PAIN Last administered on 11/22/16 20:17; Admin Dose 1 TAB; Start 11/19/16 at 18:30 Atorvastatin Calcium (Lipitor) 10 mg QHS PO Last administered on 11/27/16 22: 01; Admin Dose 10 MG; Start 11/19/16 at 21:00 Gabapentin (Neurontin) 300 mg TID PO Last administered on 11/28/16 08:56; Admin Dose 300 MG; Start 11/19/16 at 21:00 Lisinopril (Zestril) 10 mg DAILY PO Last administered on 11/28/16 08:56; Admin Dose 10 MG; Start 11/20/16 at 09:00 Oxycodone/ Acetaminophen (Percocet (5/ 325)) 2 tab Q4H PRN PO PAIN LEVEL 6-10 Last administered on 11/28/16 02:18; Admin Dose 2 TAB; Start 11/19/16 at 21:30 Miscellaneous Information 1 ea NOTE XX ; Start 11/20/16 at 08:00 Glucose (Glutose) 15 gm Q15M PRN PO DECREASED GLUCOSE; Start 11/20/16 at 08:00 Glucose (Glutose) 22.5 gm Q15M PRN PO DECREASED GLUCOSE; Start 11/20/16 at 08: 00 Dextrose (D50w Syringe) 25 ml Q15M PRN IV DECREASED GLUCOSE; Start 11/20/16 at 08:00 Dextrose (D50w Syringe) 50 ml Q15M PRN IV DECREASED GLUCOSE; Start 11/20/16 at 08:00 Glucagon (Glucagen) 1 mg Q15M PRN IM DECREASED GLUCOSE; Start 11/20/16 at 08:00 Glucose (Glutose) 15 gm Q15M PRN BUCCAL DECREASED GLUCOSE; Start 11/20/16 at 08 :00 Hydralazine HCl (Apresoline) 10 mg Q6H PRN IV SBP>160; Start 11/20/16 at 16:30 Insulin Glargine (Lantus) 6 unit DAILY@20 SC Last administered on 11/27/16 22: 03; Admin Dose 6 UNIT; Start 11/20/16 at 20:00 Cholecalciferol (Vitamin D) 2,000 unit DAILY PO Last administered on 11/28/16 08:56; Admin Dose 2,000 UNIT; Start 11/21/16 at 11:30 Famotidine (Pepcid) 20 mg BID PO Last administered on 11/28/16 08:56; Admin Dose 20 MG; Start 11/21/16 at 21:00 Clopidogrel Bisulfate 75 mg 75 mg DAILY PO Last administered on 11/28/16 08:56 ; Admin Dose 75 MG; Start 11/22/16 at 12:30 Metronidazole/N/A (Flagyl 500 Mg (Pmx)/Evac Container) 50 ml @ 50 mls/hr Q8 IVPB Last administered on 11/28/16 07:33; Admin Dose 50 MLS/HR; Start at 22:00 Ondansetron HCl (Zofran Inj) 4 mg Q4H PRN IV NAUSEA AND/OR VOMITING Last administered on 11/27/16 06:49; Admin Dose 4 MG; Start 11/24/16 at 14:30 Metoclopramide HCl (Reglan) 5 mg Q4H PRN IV VOMITTING Last administered on 11/27 16:04; Admin Dose 5 MG; Start 11/26/16 at 18:00 Docusate Sodium (Colace) 100 mg BID PO Last administered on 11/28/16 08:56; Admin Dose 100 MG; Start 11/26/16 at 21:00 Hydromorphone HCl (Dilaudid) 1.5 mg Q4H PRN IV PAIN Last administered on 09:02; Admin Dose 1.5 MG; Start 11/26/16 at 18:00 Ketorolac Tromethamine (Toradol) 30 mg Q6H PRN IV PAIN Last administered on 05:02; Admin Dose 30 MG; Start 11/27/16 at 00:00; Stop 11/30/16 at 00:00 Polyethylene Glycol (Miralax) 17 gm DAILY PRN PO CONSTIPATION Last administered on 11/27/16t 17:34; Admin Dose 17 GM; Start 11/27/16 at 17:00 ORALIA BLUE MD Nov 28, 2016 09:16
--- NOTE | 2016-11-28 09:33 | PN ---
Date/Time of Note Date/Time of Note DATE: 11/28/16 TIME: 09: Assessment/Plan Lines/Catheters IV Catheter Type (from [facility]): Saline Lock Vee in Place (from [facility]): No Assessment/Plan Chief Complaint/Hosp Course -Bilateral lower extremity atherosclerosis with gangrene: It seems the patient has developed a worsening right second toe gangrene now and previous amputation site. Patient does have severe pedal disease and perfusion past the forefoot is limited. She is S/P angiogram and intervention in order to increase her infrapopliteal perfusion. Unfortunately, we may be limited with our limb salvage for the patient and she may require further debridements and major amputation. -S/P Right 3rd toe ray amputation, 4&5th toe metatarsal amputation and debridement of stump, application of Acell graft and wound VAC. -Continue with IV antibiotics -Optimize vascular status (BP meds, diet, nutrition, exercise, sugar control, antiplatelets). -Discussed findings, plan and management with the patient, she understands with a certified web developer in regards to our limitations of vascular interventions and limb salvage and possibility of further debridements/major amputations. After extensive discussions with the patient she would like to have a major amputation . she would like to improve her quality of life and pursue a surgery that will provide better wound healing and recovery. We have explained to her a BKA-will have a higher percentage of wound healing in comparison to an open TMA with eventual wound closure, especially because of her severe tibial and pedal disease -Thank you for allowing us to partake in the care of your patient. Please call with any questions. Problems: Subjective 24 Hr Interval Summary Constitutional: no complaints Exam/Review of Systems Vital Signs Vitals Vital Signs Date Time Temp Pulse Resp B/P Pulse Ox O2 Delivery O2 Flow Rate FiO2 11/28/16 08:00 97.6 68 20 130/68 98 11/27/16 15:53 Room Air Intake and Output 11/27/16 11/27/16 11/28/16 15:00 23:00 07:00 Intake Total 350 ml 420 ml 400 ml Balance 350 ml 420 ml 400 ml Exam Free Text/Dictation GENERAL: Alert and oriented x3. PULMONARY: Clear to auscultation bilaterally. CARDIOVASCULAR: S1, S2 present. ABDOMEN: Soft, nontender, nondistended. Bowel sounds positive. EXTREMITIES: Right lower extremity: Palpable femoral pulse, nonpalpable pedal pulse. Motor , sensory intact. Capillary refill 3 seconds. Amputation stump with gangrene and 2nd toe gangrene, dorsal foot with an eschar Results Result Diagram: 11/27/16 0540 11/27/16 0540 JOAQUINA MCKEON MD Nov 28, 2016 09:33
[2016-11-28] MEDS: METOCLOPRAMIDE 10 MG INJ IV PRN (13:24)
--- NOTE | 2016-11-28 16:09 | CONS ---
DATE OF ADMISSION: 11/19/2016 DATE OF CONSULTATION: 11/28/2016 TYPE OF CONSULTATION: Cardiology REASON FOR CONSULTATION: Preoperative evaluation. REQUESTING PHYSICIAN: Zhou Mckeon MD from vascular surgery service. HISTORY OF PRESENT ILLNESS: Ms. 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 Since arrival, patient has been followed by vascular surgery services with plans for possible need to do further debridement and/or lower extremity amputation. Given these findings, c ardiology consultation has been requested. At this time, patient denies chest pain, shortness of br eath. Does have pain in her foot. PAST MEDICAL HISTORY: As above in HPI, with patient undergoing a Lexiscan 10/14/2016 at that time r evealing an EF of 74% with no evidence of ischemia. The patient's most recent 2D echo 10/14/2016 re vealing an EF of greater than 65% with trace mitral and tricuspid regurgitation. MEDICATIONS CURRENTLY IN HOSPITAL: 1. Lipitor. 2. Reglan. 3. Dilaudid. 4. Zofran. 5. Plavix 75 mg daily. 6. Pepcid 20 mg p.o. b.i.d. 7. Insulin sliding scale. 8. Lisinopril 10 mg daily. 9. Lantus 6 units daily. 10. Percocet p.r.n. 11. Neurontin 300 mg p.o. t.i.d. 12. Cefepime q.12h. 13. Vancomycin. ALLERGIES: NO KNOWN DRUG ALLERGIES. SOCIAL HISTORY: No tobacco, ETOH or illicit drug use. FAMILY HISTORY: Negative for sudden cardiac or early CAD. REVIEW OF SYSTEMS: As above in HPI. CONSTITUTIONAL: No fevers, chills. PULMONARY: No current shortness of breath. CARDIOVASCULAR: No chest pain, no shortness of breath. GASTROINTESTINAL: No vomiting. GENITOURINARY: No hematuria. MUSCULOSKELETAL: Status post left above-knee amputation, right lower extremity gangrenous changes. HEMATOLOGIC: Anemia. ENDOCRINE: Diabetes mellitus. PHYSICAL EXAMINATION: VITAL SIGNS: Temperature 97.6, blood pressure 130/68, pulse 68, respiratory rate 20, saturating 98% . GENERAL: The patient is alert, awake, complaining of mild pain in her foot. NECK: JVP approximately 8 to 9 cm water. CHEST: Fair air movement throughout. HEART: Regular rate and rhythm. Normal S1, S2, I/ systolic murmur, nondisplaced PMI. ABDOMEN: Positive bowel sounds, soft. EXTREMITIES: No pitting edema. Gangrenous changes of the right lower extremity. Left lower extrem ity status post above-knee amputation. LABORATORY DATA: As above in HPI, with most recently from 11/27/2016, white blood cell count 8.2, h emoglobin 10.5, platelet count 439. Sodium 139, potassium 4.0, creatinine 0.5, glucose 195. INR 1. 1. ECG from 11/19/2016, most recently, at that time revealed normal sinus rhythm at a rate of 77, left axis deviation, left anterior fascicular block, low voltage throughout the leads, poor R-wave progre ssion across the anterior precordial leads. IMPRESSION: 1. Preoperative evaluation prior to lower extremity vascular surgery. 2. Hypertension, labile, but currently under reasonable control. 3. Dyslipidemia. 4. 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 5. Diabetes mellitus. 6. Lower extremity gangrenous changes, right lower extremity. 7. Status post left lower extremity above-knee amputation. 8. Anemia. RECOMMENDATIONS: 1. At this time, would check a repeat EKG to assess for any significant changes since most recent E KG and would send troponins q.6h. x2 to ensure this patient has not had any recent coronary syndrome s in anticipation of upcoming surgery. 2. We will continue the patient's current antihypertensives with lisinopril and continue the patien t's current statin therapy and adjust it according to a fasting lipid panel, which will be checked. 3. If the patient's troponins return negative x2 and the patient's EKG reveals no new changes, at t hat time the patient will be without cardiac contraindication to proceeding to the OR, on current me dications at a relatively low to moderate risk for cardiovascular complications. Postoperatively, w ould check a 12-lead EKG to assess for any significant changes and watch closely for signs and sympt oms of cardiovascular complications including, but not limited to, the onset of chest pain, shortnes s of breath, uncontrolled cardiac arrhythmias, history of congestive heart failure. Thank you for allowing me to take part in the care of this patient. I will continue to follow along very closely with you. Further recommendations will be made as the patient progresses through her inpatient hospital clinical course. Dictated By: KAYLEIGH REYNAGA/TRACE Conf#: [id number] DID#: [id number] CC: ZHOU MCKEON MD;*EndCC*
[2016-11-28] MEDS: POLYETHYLENE GLYCOL 17 GM PACKET PO PRN (16:47)
[2016-11-28 20:21] VITALS: BP 194/89; RESP 19
[2016-11-28 20:23] VITALS: BP 189/89
[2016-11-28] MEDS: ATORVASTATIN 40 MG TAB PO SCH (20:45)
[2016-11-28] MEDS: INSULIN GLARGINE [LANtus] 3 ML PEN SC SCH (20:53)
[2016-11-28 21:30] VITALS: BP 154/82; PULSE 74; RESP 18
--- NOTE | 2016-11-28 22:40 | CONS ---
Date/Time of Note Date/Time of Note DATE: 11/28/16 TIME: 22:37 Assessment/Plan Assessment/Plan Chief Complaint/Hosp Course ID PROGRESS NOTE CURRENT ABX => #9 Vanco IV + Cefepime + Flagyl 24H INTERVAL SUMMARY => POD #8 =>S/P incision and drainage of the 4th and 5th toe with amputation of the right third toe by vascular surgery on 11/20/2016. * Per notes: APC team has recommended BKA => Amputation stump with gangrene and 2nd toe gangrene, dorsal foot with an eschar * Currently sleeping -- VSS, no fevers, NAD PHYSICAL EXAMINATION: GENERAL: VSS, NAD, Afebrile -> pleasant 51yo F Czech speaking w/limited [place]i -- we are able to communicate HEENT: Unremarkable NECK: Supple, trach-midline CHEST: Rise symmetrical, without dyspnea on observation HEART: Pulse RRR ABDOMEN: Soft, benign EXTREMITIES: Warm ->Gangrene, eschar ID ASSESSMENT 51 yo F vasculopath w/PMHx CAD, PAD admit with: 51-year-old female with numerous problems, who comes in with vascular problems admit with: 1. Right lower extremity gangrene => LIMB SALVAGE PLAN * POD # 11/20/16 =>S/P incision and drainage of the 4th and 5th toe with amputation of the right third toe by vascular surgery 2. PAD -> Bilateral lower extremity atherosclerosis. * s/p RLEXT angiogram/femoral popliteal angioplasty and her anterior tibial and dorsalis pedis artery angioplasty. 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 Diabetes w/complication of severe CV disease and polyneuropathies 5. Hypercholesterolemia. (-)MRSA Nares INVASIVES: PIV, ABX ALLERGY: NKDA CURRENT ABX: DAY #9 => Vanco IV + Cefepime + Flagyl ID RECOMMENDATIONS 1. PLAN REMAINS THE SAME =>Continue current ABX -> She may require new PICC Placement if plan is for DC to , defer to primary provider 2. Per notes: APC team has recommended BKA => Amputation stump with gangrene and 2nd toe gangrene, dorsal foot with an eschar . . . . Problems: Consultation Date/Type/Reason Admit Date/Time Nov 19, 2016 at 11:38 Type of Consultation: ID Exam/Review of Systems Vital Signs Vitals Vital Signs Date Time Temp Pulse Resp B/P Pulse Ox O2 Delivery O2 Flow Rate FiO2 11/28/16 20:23 189/89 11/28/16 20:21 98.7 82 19 99 11/27/16 15:53 Room Air Intake and Output 11/27/16 11/27/16 11/28/16 15:00 23:00 07:00 Intake Total 350 ml 420 ml 400 ml Balance 350 ml 420 ml 400 ml Results Result Diagram: 11/27/16 0540 11/27/16 0540 Results 24 hrs Laboratory Tests Test 11/28/16 07:59 11/28/16 11:44 11/28/16 12:11 11/28/16 17:14 Bedside Glucose 75 195 130 Hepatitis B Surface Antigen NEGATIVE Hepatitis C Antibody NEGATIVE Test 11/28/16 19:15 11/28/16 20:41 Troponin I < 0.012 Bedside Glucose 149 Medications Medications Current Medications Diagnostic Test (Pha) 1 ea 1 ea 02 XX ; Start 11/20/16 at 02:00 Cefepime HCl 50 ml @ 100 mls/hr Q12 IVPB Last administered on 11/28/16 20:45 ; Admin Dose 100 MLS/HR; Start 11/19/16 at 18:30 Vancomycin HCl (Vancocin) 250 ml @ 125 mls/hr Q12H IVPB Last administered on 17:48; Admin Dose 125 MLS/HR; Start 11/19/16 at 18:00 Oxycodone/ Acetaminophen (Percocet (5/ 325)) 1 tab Q4H PRN PO PAIN Last administered on 11/22/16 20:17; Admin Dose 1 TAB; Start 11/19/16 at 18:30 Gabapentin (Neurontin) 300 mg TID PO Last administered on 11/28/16 20:45; Admin Dose 300 MG; Start 11/19/16 at 21:00 Lisinopril (Zestril) 10 mg DAILY PO Last administered on 11/28/16 08:56; Admin Dose 10 MG; Start 11/20/16 at 09:00 Oxycodone/ Acetaminophen (Percocet (5/ 325)) 2 tab Q4H PRN PO PAIN LEVEL 6-10 Last administered on 11/28/16 22:31; Admin Dose 2 TAB; Start 11/19/16 at 21:30 Miscellaneous Information 1 ea NOTE XX ; Start 11/20/16 at 08:00 Glucose (Glutose) 15 gm Q15M PRN PO DECREASED GLUCOSE; Start 11/20/16 at 08:00 Glucose (Glutose) 22.5 gm Q15M PRN PO DECREASED GLUCOSE; Start 11/20/16 at 08: 00 Dextrose (D50w Syringe) 25 ml Q15M PRN IV DECREASED GLUCOSE; Start 11/20/16 at 08:00 Dextrose (D50w Syringe) 50 ml Q15M PRN IV DECREASED GLUCOSE; Start 11/20/16 at 08:00 Glucagon (Glucagen) 1 mg Q15M PRN IM DECREASED GLUCOSE; Start 11/20/16 at 08:00 Glucose (Glutose) 15 gm Q15M PRN BUCCAL DECREASED GLUCOSE; Start 11/20/16 at 08 :00 Hydralazine HCl (Apresoline) 10 mg Q6H PRN IV SBP>160 Last administered on 11/28 19:37; Admin Dose 10 MG; Start 11/20/16 at 16:30 Insulin Glargine (Lantus) 6 unit DAILY@20 SC Last administered on 11/28/16 20: 53; Admin Dose 6 UNIT; Start 11/20/16 at 20:00 Cholecalciferol (Vitamin D) 2,000 unit DAILY PO Last administered on 11/28/16 08:56; Admin Dose 2,000 UNIT; Start 11/21/16 at 11:30 Famotidine (Pepcid) 20 mg BID PO Last administered on 11/28/16 20:45; Admin Dose 20 MG; Start 11/21/16 at 21:00 Clopidogrel Bisulfate 75 mg 75 mg DAILY PO Last administered on 11/28/16 08:56 ; Admin Dose 75 MG; Start 11/22/16 at 12:30 Metronidazole/N/A (Flagyl 500 Mg (Pmx)/Evac Container) 50 ml @ 50 mls/hr Q8 IVPB Last administered on 11/28/16 22:31; Admin Dose 50 MLS/HR; Start at 22:00 Ondansetron HCl (Zofran Inj) 4 mg Q4H PRN IV NAUSEA AND/OR VOMITING Last administered on 11/27/16 06:49; Admin Dose 4 MG; Start 11/24/16 at 14:30 Metoclopramide HCl (Reglan) 5 mg Q4H PRN IV VOMITTING Last administered on 11/28 13:24; Admin Dose 5 MG; Start 11/26/16 at 18:00 Docusate Sodium (Colace) 100 mg BID PO Last administered on 11/28/16 20:45; Admin Dose 100 MG; Start 11/26/16 at 21:00 Hydromorphone HCl (Dilaudid) 1.5 mg Q4H PRN IV PAIN Last administered on 09:02; Admin Dose 1.5 MG; Start 11/26/16 at 18:00 Ketorolac Tromethamine (Toradol) 30 mg Q6H PRN IV PAIN Last administered on 20:16; Admin Dose 30 MG; Start 11/27/16 at 00:00; Stop 11/30/16 at 00:00 Polyethylene Glycol (Miralax) 17 gm DAILY PRN PO CONSTIPATION Last administered on 11/28/16 16:47; Admin Dose 17 GM; Start 11/27/16 at 17:00 Atorvastatin Calcium (Lipitor) 40 mg DAILY@21 PO Last administered on 20:45; Admin Dose 40 MG; Start 11/28/16 at 21:00 Miscellaneous Information (*Rx Drug Level Order Reminder*) VANCOMYCIN TROUGH AT 0500 ONCE ONCE XX ; Start 11/29/16 at 05:00; Stop 11/29/16 at 05:01 MICHELLE SOLORZANO NP Nov 28, 2016 22:40
[2016-11-29] MEDS: HYDROmorphONE 2 MG/ML SYG IV PRN ×2 (01:04→18:13)
[2016-11-29] MEDS: ACCU-CHEK XX SCH ×2 (02:00→20:57)
[2016-11-29] MEDS: metroNIDAZOLE 500 MG/NS (PMX) 250 MG in EVAC CONTAINER 1 BOTTLE IVPB SCH ×3 (05:13→22:21)
[2016-11-29] MEDS: ONDANSETRON 4 MG INJ IV PRN ×2 (05:15→20:58)
[2016-11-29 06:12] LABS: CREATININE 0.42 mg/dl (0.44-1.00)
[2016-11-29] MEDS: VANCOMYCIN 1 GM in NS 250 ML IVPB SCH ×2 (06:35→18:05)
[2016-11-29 08:00] VITALS: BP 138/65; RESP 19
[2016-11-29] MEDS: INSULIN ASPART [NOVOLOG] 3 ML PEN SC SCH ×7 (08:00→20:56)
[2016-11-29] MEDS: CHOLECALCIFEROL 2,000 UNIT CAP PO SCH (08:30)
[2016-11-29] MEDS: DOCUSATE SODIUM 100 MG CAP PO SCH ×2 (08:30→20:57)
[2016-11-29] MEDS: GABAPENTIN 300 MG CAP PO SCH ×3 (08:30→20:57)
[2016-11-29] MEDS: CLOPIDOGREL 75 MG TAB PO SCH (08:30)
[2016-11-29] MEDS: LISINOPRIL 10 MG TAB PO SCH (08:30)
[2016-11-29] MEDS: FAMOTIDINE 20 MG TAB PO SCH ×2 (08:30→20:57)
[2016-11-29] MEDS: CEFEPIME 1GM/50 ML (PMX) 50 ML IVPB SCH ×2 (08:31→20:56)
--- NOTE | 2016-11-29 10:38 | PN ---
Date/Time of Note Date/Time of Note DATE: 11/29/16 TIME: 10:32 Assessment/Plan VTE Prophylaxis VTE Prophylaxis Intervention: heparin Lines/Catheters IV [facility]from [facility]): Saline Lock Urinary Cath still in place: No Assessment/Plan Problems: (1) Essential hypertension Status: Chronic Comment: Her blood pressure control is a little bit too variable. She is on low-dose MILAGRO inhibitors will make a mild adjustment for that. (2) Hyperlipidemia Status: Chronic Comment: She remains on statin therapy Qualifiers: Hyperlipidemia type: pure hypercholesterolemia Qualified Code: E78.00 - Pure hypercholesterolemia (3) Adjustment disorder with depressed mood Status: Acute Comment: She is very depressed having previously lost the left leg to necrotizing fasciitis and now looking in a right BKA. I am going to go ahead and place her on an antidepressant in the hope of trying to alleviate her symptoms slightly (4) Diabetes mellitus with polyneuropathy Status: Chronic Comment: She has adequate control of her blood sugars. Please note there is no evidence of nephropathy or retinopathy but she does have peripheral neuropathy. Qualifiers: Diabetes mellitus type: type 2 Qualified Code: E11.42 - Diabetic polyneuropathy associated with type 2 diabetes mellitus (5) Peripheral vascular disease Status: Chronic Comment: As per vascular surgery they are tentatively planning to do performed right BKA in the middle of the week. Cardiology is seeing the patient. She has negative troponins and a normal EKG. I will defer off to their judgment regarding for medical clearance although it is my belief that she is actually stable for surgery (6) Gangrene of toe Status: Chronic Comment: On antibiotic therapy unfortunately vascular is an issue Subjective 24 Hr Interval Summary Free Text/Dictation Patient is conversant but reports she is depressed. She reports her pain control is adequate Constitutional: no complaints (Denies fevers chills or sweats) Respiratory: no complaints Cardiovascular: no complaints (Denies chest pain palpitations PND orthopnea) Gastrointestinal: no complaints Genitourinary: no complaints Exam/Review of Systems Vital Signs Vitals Vital Signs Date Time Temp Pulse Resp B/P Pulse Ox O2 Delivery O2 Flow Rate FiO2 11/29/16 08:00 98.2 70 19 138/65 98 11/28/16 21:30 Room Air Intake and Output 11/28/16 11/28/16 11/29/16 15:00 23:00 07:00 Intake Total 350 ml 690 ml 500 ml Balance 350 ml 690 ml 500 ml Exam Constitutional: alert, oriented Neck: non-tender, supple Respiratory: clear to auscultation, normal air movement Cardiovascular: nl pulses, regular rate and rhythm Gastrointestinal: nl liver, spleen, non-tender, soft Results Result Diagram: 11/27/16 0540 11/29/16 0500 Results 24 hrs Laboratory Tests Test 11/28/16 11:44 11/28/16 12:11 11/28/16 17:14 11/28/16 19:15 Bedside Glucose 195 130 Hepatitis B Surface Antigen NEGATIVE Hepatitis C Antibody NEGATIVE Troponin I < 0.012 Test 11/28/16 20:41 11/29/16 00:45 11/29/16 05:00 11/29/16 07:59 Bedside Glucose 149 83 Troponin I < 0.012 Blood Urea Nitrogen 10 Creatinine 0.42 L Vancomycin Level Trough 12.0 Medications Medications Current Medications Diagnostic Test (Pha) 1 ea 1 ea 02 XX ; Start 11/20/16 at 02:00 Cefepime HCl 50 ml @ 100 mls/hr Q12 IVPB Last administered on 11/29/16 08:31 ; Admin Dose 100 MLS/HR; Start 11/19/16 at 18:30 Vancomycin HCl (Vancocin) 250 ml @ 125 mls/hr Q12H IVPB Last administered on 06:35; Admin Dose 125 MLS/HR; Start 11/19/16 at 18:00 Oxycodone/ Acetaminophen (Percocet (5/ 325)) 1 tab Q4H PRN PO PAIN Last administered on 11/22/16 20:17; Admin Dose 1 TAB; Start 11/19/16 at 18:30 Gabapentin (Neurontin) 300 mg TID PO Last administered on 11/29/16 08:30; Admin Dose 300 MG; Start 11/19/16 at 21:00 Lisinopril (Zestril) 10 mg DAILY PO Last administered on 11/29/16 08:30; Admin Dose 10 MG; Start 11/20/16 at 09:00 Oxycodone/ Acetaminophen (Percocet (5/ 325)) 2 tab Q4H PRN PO PAIN LEVEL 6-10 Last administered on 11/28/16 22:31; Admin Dose 2 TAB; Start 11/19/16 at 21:30 Miscellaneous Information 1 ea NOTE XX ; Start 11/20/16 at 08:00 Glucose (Glutose) 15 gm Q15M PRN PO DECREASED GLUCOSE; Start 11/20/16 at 08:00 Glucose (Glutose) 22.5 gm Q15M PRN PO DECREASED GLUCOSE; Start 11/20/16 at 08: 00 Dextrose (D50w Syringe) 25 ml Q15M PRN IV DECREASED GLUCOSE; Start 11/20/16 at 08:00 Dextrose (D50w Syringe) 50 ml Q15M PRN IV DECREASED GLUCOSE; Start 11/20/16 at 08:00 Glucagon (Glucagen) 1 mg Q15M PRN IM DECREASED GLUCOSE; Start 11/20/16 at 08:00 Glucose (Glutose) 15 gm Q15M PRN BUCCAL DECREASED GLUCOSE; Start 11/20/16 at 08 :00 Hydralazine HCl (Apresoline) 10 mg Q6H PRN IV SBP>160 Last administered on 11/28 19:37; Admin Dose 10 MG; Start 11/20/16 at 16:30 Insulin Glargine (Lantus) 6 unit DAILY@20 SC Last administered on 11/28/16 20: 53; Admin Dose 6 UNIT; Start 11/20/16 at 20:00 Cholecalciferol (Vitamin D) 2,000 unit DAILY PO Last administered on 11/29/16 08:30; Admin Dose 2,000 UNIT; Start 11/21/16 at 11:30 Famotidine (Pepcid) 20 mg BID PO Last administered on 11/29/16 08:30; Admin Dose 20 MG; Start 11/21/16 at 21:00 Clopidogrel Bisulfate 75 mg 75 mg DAILY PO Last administered on 11/29/16 08:30 ; Admin Dose 75 MG; Start 11/22/16 at 12:30 Metronidazole/N/A (Flagyl 500 Mg (Pmx)/Evac Container) 50 ml @ 50 mls/hr Q8 IVPB Last administered on 11/29/16 05:13; Admin Dose 50 MLS/HR; Start at 22:00 Ondansetron HCl (Zofran Inj) 4 mg Q4H PRN IV NAUSEA AND/OR VOMITING Last administered on 11/29/16 05:15; Admin Dose 4 MG; Start 11/24/16 at 14:30 Metoclopramide HCl (Reglan) 5 mg Q4H PRN IV VOMITTING Last administered on 11/28 13:24; Admin Dose 5 MG; Start 11/26/16 at 18:00 Docusate Sodium (Colace) 100 mg BID PO Last administered on 11/29/16 08:30; Admin Dose 100 MG; Start 11/26/16 at 21:00 Hydromorphone HCl (Dilaudid) 1.5 mg Q4H PRN IV PAIN Last administered on 01:04; Admin Dose 1.5 MG; Start 11/26/16 at 18:00 Ketorolac Tromethamine (Toradol) 30 mg Q6H PRN IV PAIN Last administered on 20:16; Admin Dose 30 MG; Start 11/27/16 at 00:00; Stop 11/30/16 at 00:00 Polyethylene Glycol (Miralax) 17 gm DAILY PRN PO CONSTIPATION Last administered on 11/28/16 16:47; Admin Dose 17 GM; Start 11/27/16 at 17:00 Atorvastatin Calcium (Lipitor) 40 mg DAILY@21 PO Last administered on 20:45; Admin Dose 40 MG; Start 11/28/16 at 21:00 ORALIA BLUE MD Nov 29, 2016 10:38
--- NOTE | 2016-11-29 14:30 | CONS ---
Date/Time of Note Date/Time of Note DATE: 11/29/16 TIME: 14:24 Assessment/Plan Assessment/Plan Chief Complaint/Hosp Course IMPRESSION: 1. Preoperative evaluation prior to lower extremity vascular surgery.-negative troponin x 3. EKD 11/28 with no sig changes/single PVC. Relatively recent negative stress test and NL EF/no sig valve abnl by echo 09/2016 2. Hypertension, labile, but currently under reasonable control. 3. Dyslipidemia. 4. 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 5. Diabetes mellitus. 6. Lower extremity gangrenous changes, right lower extremity. 7. Status post left lower extremity above-knee amputation. 8. Anemia. 9.PVC-single on ecg Recc: -OK to proceed with surgery at this time from cardiac standpoint at moderate risk -Continue plavix -Agree with increase in zestril and f/u BP -Local wound care/abx's -pnding vascular surgery -Check k/mg Problems: Consultation Date/Type/Reason Admit Date/Time Nov 19, 2016 at 11:38 Initial Consult Date 11/28/2016 Type of Consultation: Cardiology Reason for Consultation Pre-op Referring Provider: JOAQUINA MCKEON MD Exam/Review of Systems Vital Signs Vitals Vital Signs Date Time Temp Pulse Resp B/P Pulse Ox O2 Delivery O2 Flow Rate FiO2 11/29/16 08:00 98.2 70 19 138/65 98 11/28/16 21:30 Room Air Intake and Output 11/28/16 11/28/16 11/29/16 15:00 23:00 07:00 Intake Total 350 ml 690 ml 500 ml Balance 350 ml 690 ml 500 ml Exam Review of Systems: CONSTITUTIONAL: No fevers, chills. PULMONARY: No sob CARDIOVASCULAR: No chest pain/palpitations GASTROINTESTINAL: No nausea/vomiting. GENITOURINARY: No hematuria/dysuria. MUSCULOSKELETAL: mild pain in foot PSYCHIATRIC: The patient denies depression. NEUROLOGIC: No weakness Constitutional: alert Psych: no complaints Head: normocephalic ENMT: mucosa pink and moist Neck: jvd, supple Respiratory: diminished breath sounds (at bases/B) Cardiovascular: regular rate and rhythm Gastrointestinal: non-tender, soft Musculoskeletal: muscle tone (normal) Extremities: edema (none), other (foot covered by dressing) Neurological: other (No focal deficits) Results Result Diagram: 11/27/16 0540 11/29/16 0500 Results 24 hrs Laboratory Tests Test 11/28/16 17:14 11/28/16 19:15 11/28/16 20:41 11/29/16 00:45 Bedside Glucose 130 149 Troponin I < 0.012 < 0.012 Test 11/29/16 05:00 11/29/16 07:59 11/29/16 11:50 Blood Urea Nitrogen 10 Creatinine 0.42 L Vancomycin Level Trough 12.0 Bedside Glucose 83 170 Medications Medications Current Medications Diagnostic Test (Pha) 1 ea 1 ea 02 XX ; Start 11/20/16 at 02:00 Cefepime HCl 50 ml @ 100 mls/hr Q12 IVPB Last administered on 11/29/16 08:31 ; Admin Dose 100 MLS/HR; Start 11/19/16 at 18:30 Vancomycin HCl (Vancocin) 250 ml @ 125 mls/hr Q12H IVPB Last administered on 06:35; Admin Dose 125 MLS/HR; Start 11/19/16 at 18:00 Oxycodone/ Acetaminophen (Percocet (5/ 325)) 1 tab Q4H PRN PO PAIN Last administered on 11/22/16 20:17; Admin Dose 1 TAB; Start 11/19/16 at 18:30 Gabapentin (Neurontin) 300 mg TID PO Last administered on 11/29/16 12:30; Admin Dose 300 MG; Start 11/19/16 at 21:00 Oxycodone/ Acetaminophen (Percocet (5/ 325)) 2 tab Q4H PRN PO PAIN LEVEL 6-10 Last administered on 11/28/16 22:31; Admin Dose 2 TAB; Start 11/19/16 at 21:30 Miscellaneous Information 1 ea NOTE XX ; Start 11/20/16 at 08:00 Glucose (Glutose) 15 gm Q15M PRN PO DECREASED GLUCOSE; Start 11/20/16 at 08:00 Glucose (Glutose) 22.5 gm Q15M PRN PO DECREASED GLUCOSE; Start 11/20/16 at 08: 00 Dextrose (D50w Syringe) 25 ml Q15M PRN IV DECREASED GLUCOSE; Start 11/20/16 at 08:00 Dextrose (D50w Syringe) 50 ml Q15M PRN IV DECREASED GLUCOSE; Start 11/20/16 at 08:00 Glucagon (Glucagen) 1 mg Q15M PRN IM DECREASED GLUCOSE; Start 11/20/16 at 08:00 Glucose (Glutose) 15 gm Q15M PRN BUCCAL DECREASED GLUCOSE; Start 11/20/16 at 08 :00 Hydralazine HCl (Apresoline) 10 mg Q6H PRN IV SBP>160 Last administered on 11/28 19:37; Admin Dose 10 MG; Start 11/20/16 at 16:30 Insulin Glargine (Lantus) 6 unit DAILY@20 SC Last administered on 11/28/16 20: 53; Admin Dose 6 UNIT; Start 11/20/16 at 20:00 Cholecalciferol (Vitamin D) 2,000 unit DAILY PO Last administered on 11/29/16 08:30; Admin Dose 2,000 UNIT; Start 11/21/16 at 11:30 Famotidine (Pepcid) 20 mg BID PO Last administered on 11/29/16 08:30; Admin Dose 20 MG; Start 11/21/16 at 21:00 Clopidogrel Bisulfate 75 mg 75 mg DAILY PO Last administered on 11/29/16 08:30 ; Admin Dose 75 MG; Start 11/22/16 at 12:30 Metronidazole/N/A (Flagyl 500 Mg (Pmx)/Evac Container) 50 ml @ 50 mls/hr Q8 IVPB Last administered on 11/29/16 05:13; Admin Dose 50 MLS/HR; Start at 22:00 Ondansetron HCl (Zofran Inj) 4 mg Q4H PRN IV NAUSEA AND/OR VOMITING Last administered on 11/29/16 05:15; Admin Dose 4 MG; Start 11/24/16 at 14:30 Metoclopramide HCl (Reglan) 5 mg Q4H PRN IV VOMITTING Last administered on 11/28 13:24; Admin Dose 5 MG; Start 11/26/16 at 18:00 Docusate Sodium (Colace) 100 mg BID PO Last administered on 11/29/16 08:30; Admin Dose 100 MG; Start 11/26/16 at 21:00 Hydromorphone HCl (Dilaudid) 1.5 mg Q4H PRN IV PAIN Last administered on 01:04; Admin Dose 1.5 MG; Start 11/26/16 at 18:00 Ketorolac Tromethamine (Toradol) 30 mg Q6H PRN IV PAIN Last administered on 20:16; Admin Dose 30 MG; Start 11/27/16 at 00:00; Stop 11/30/16 at 00:00 Polyethylene Glycol (Miralax) 17 gm DAILY PRN PO CONSTIPATION Last administered on 11/28/16 16:47; Admin Dose 17 GM; Start 11/27/16 at 17:00 Atorvastatin Calcium (Lipitor) 40 mg DAILY@21 PO Last administered on 20:45; Admin Dose 40 MG; Start 11/28/16 at 21:00 Lisinopril (Zestril) 20 mg DAILY PO ; Start 11/30/16 at 09:00 Mirtazapine (Remeron) 15 mg HS PO ; Start 11/29/16 at 21:00 KAYLEIGH NORIEGA Nov 29, 2016 14:30
--- NOTE | 2016-11-29 16:47 | CONS ---
Date/Time of Note Date/Time of Note DATE: 11/29/16 TIME: 16:43 Assessment/Plan Assessment/Plan Chief Complaint/Hosp Course ID PROGRESS NOTE CURRENT ABX => #10 Vanco IV + Cefepime + Flagyl 24H INTERVAL SUMMARY => POD #11/20/16 =>S/P incision and drainage of the 4th and 5th toe with amputation of the right third toe by vascular surgery on 11/20/2016. * She is resting on pain meds which give her nausea & occasional vomiting -- children are present and given an update on the ABX * Per notes: APC team has recommended BKA => Amputation stump with gangrene and 2nd toe gangrene, dorsal foot with an eschar * VSS, no fevers, NAD PHYSICAL EXAMINATION: GENERAL: VSS, NAD, Afebrile -> pleasant 51yo F [place] speaking w/limited Nepalese -- we are able to communicate HEENT: Unremarkable NECK: Supple, trach-midline CHEST: Rise symmetrical, without dyspnea on observation HEART: Pulse RRR ABDOMEN: Soft, benign EXTREMITIES: Warm ->Gangrene, eschar ID ASSESSMENT 51 yo F vasculopath w/PMHx CAD, PAD admit with: 51-year-old female with numerous problems, who comes in with vascular problems admit with: 1. Right lower extremity gangrene => LIMB SALVAGE PLAN * POD # 11/20/16 =>S/P incision and drainage of the 4th and 5th toe with amputation of the right third toe by vascular surgery 2. PAD -> Bilateral lower extremity atherosclerosis. * s/p RLEXT angiogram/femoral popliteal angioplasty and her anterior tibial and dorsalis pedis artery angioplasty. 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 Diabetes w/complication of severe CV disease and polyneuropathies 5. Hypercholesterolemia. (-)MRSA Nares INVASIVES: PIV, ABX ALLERGY: NKDA CURRENT ABX: DAY #10 Vanco IV + Cefepime + Flagyl ID RECOMMENDATIONS 1. PLAN REMAINS THE SAME =>Continue current ABX -> She may require new PICC Placement if plan is for DC to , defer to primary provider 2. Per notes: APC team has recommended BKA => Amputation stump with gangrene and 2nd toe gangrene, dorsal foot with an eschar . . . . Problems: Consultation Date/Type/Reason Admit Date/Time Nov 19, 2016 at 11:38 Type of Consultation: ID Referring Provider: JOAQIUNA MCKEON MD Exam/Review of Systems Vital Signs Vitals Vital Signs Date Time Temp Pulse Resp B/P Pulse Ox O2 Delivery O2 Flow Rate FiO2 11/29/16 08:00 98.2 70 19 138/65 98 11/28/16 21:30 Room Air Intake and Output 11/28/16 11/28/16 11/29/16 15:00 23:00 07:00 Intake Total 350 ml 690 ml 500 ml Balance 350 ml 690 ml 500 ml Results Result Diagram: 11/27/16 0540 11/29/16 0500 Results 24 hrs Laboratory Tests Test 11/28/16 17:14 11/28/16 19:15 11/28/16 20:41 11/29/16 00:45 Bedside Glucose 130 149 Troponin I < 0.012 < 0.012 Test 11/29/16 05:00 11/29/16 07:59 11/29/16 11:50 Blood Urea Nitrogen 10 Creatinine 0.42 L Vancomycin Level Trough 12.0 Bedside Glucose 83 170 Medications Medications Current Medications Diagnostic Test (Pha) 1 ea 1 ea 02 XX ; Start 11/20/16 at 02:00 Cefepime HCl 50 ml @ 100 mls/hr Q12 IVPB Last administered on 11/29/16 08:31 ; Admin Dose 100 MLS/HR; Start 11/19/16 at 18:30 Vancomycin HCl (Vancocin) 250 ml @ 125 mls/hr Q12H IVPB Last administered on 06:35; Admin Dose 125 MLS/HR; Start 11/19/16 at 18:00 Oxycodone/ Acetaminophen (Percocet (5/ 325)) 1 tab Q4H PRN PO PAIN Last administered on 11/22/16 20:17; Admin Dose 1 TAB; Start 11/19/16 at 18:30 Gabapentin (Neurontin) 300 mg TID PO Last administered on 11/29/16 12:30; Admin Dose 300 MG; Start 11/19/16 at 21:00 Oxycodone/ Acetaminophen (Percocet (5/ 325)) 2 tab Q4H PRN PO PAIN LEVEL 6-10 Last administered on 11/28/16 22:31; Admin Dose 2 TAB; Start 11/19/16 at 21:30 Miscellaneous Information 1 ea NOTE XX ; Start 11/20/16 at 08:00 Glucose (Glutose) 15 gm Q15M PRN PO DECREASED GLUCOSE; Start 11/20/16 at 08:00 Glucose (Glutose) 22.5 gm Q15M PRN PO DECREASED GLUCOSE; Start 11/20/16 at 08: 00 Dextrose (D50w Syringe) 25 ml Q15M PRN IV DECREASED GLUCOSE; Start 11/20/16 at 08:00 Dextrose (D50w Syringe) 50 ml Q15M PRN IV DECREASED GLUCOSE; Start 11/20/16 at 08:00 Glucagon (Glucagen) 1 mg Q15M PRN IM DECREASED GLUCOSE; Start 11/20/16 at 08:00 Glucose (Glutose) 15 gm Q15M PRN BUCCAL DECREASED GLUCOSE; Start 11/20/16 at 08 :00 Hydralazine HCl (Apresoline) 10 mg Q6H PRN IV SBP>160 Last administered on 11/28 19:37; Admin Dose 10 MG; Start 11/20/16 at 16:30 Insulin Glargine (Lantus) 6 unit DAILY@20 SC Last administered on 11/28/16 20: 53; Admin Dose 6 UNIT; Start 11/20/16 at 20:00 Cholecalciferol (Vitamin D) 2,000 unit DAILY PO Last administered on 11/29/16 08:30; Admin Dose 2,000 UNIT; Start 11/21/16 at 11:30 Famotidine (Pepcid) 20 mg BID PO Last administered on 11/29/16 08:30; Admin Dose 20 MG; Start 11/21/16 at 21:00 Clopidogrel Bisulfate 75 mg 75 mg DAILY PO Last administered on 11/29/16 08:30 ; Admin Dose 75 MG; Start 11/22/16 at 12:30 Metronidazole/N/A (Flagyl 500 Mg (Pmx)/Evac Container) 50 ml @ 50 mls/hr Q8 IVPB Last administered on 11/29/16 15:29; Admin Dose 50 MLS/HR; Start at 22:00 Ondansetron HCl (Zofran Inj) 4 mg Q4H PRN IV NAUSEA AND/OR VOMITING Last administered on 11/29/16 05:15; Admin Dose 4 MG; Start 11/24/16 at 14:30 Metoclopramide HCl (Reglan) 5 mg Q4H PRN IV VOMITTING Last administered on 11/28 13:24; Admin Dose 5 MG; Start 11/26/16 at 18:00 Docusate Sodium (Colace) 100 mg BID PO Last administered on 11/29/16 08:30; Admin Dose 100 MG; Start 11/26/16 at 21:00 Hydromorphone HCl (Dilaudid) 1.5 mg Q4H PRN IV PAIN Last administered on 01:04; Admin Dose 1.5 MG; Start 11/26/16 at 18:00 Ketorolac Tromethamine (Toradol) 30 mg Q6H PRN IV PAIN Last administered on 20:16; Admin Dose 30 MG; Start 11/27/16 at 00:00; Stop 11/30/16 at 00:00 Polyethylene Glycol (Miralax) 17 gm DAILY PRN PO CONSTIPATION Last administered on 11/28/16 16:47; Admin Dose 17 GM; Start 11/27/16 at 17:00 Atorvastatin Calcium (Lipitor) 40 mg DAILY@21 PO Last administered on 20:45; Admin Dose 40 MG; Start 11/28/16 at 21:00 Lisinopril (Zestril) 20 mg DAILY PO ; Start 11/30/16 at 09:00 Mirtazapine (Remeron) 15 mg HS PO ; Start 11/29/16 at 21:00 MICHELLE SOLORZANO NP Nov 29, 2016 16:47
[2016-11-29] MEDS: INSULIN GLARGINE [LANtus] 3 ML PEN SC SCH (20:56)
[2016-11-29] MEDS: ATORVASTATIN 40 MG TAB PO SCH (20:57)
[2016-11-29] MEDS: MIRTAZAPINE 15 MG TAB PO SCH (20:57)
[2016-11-29] MEDS: KETOROLAC 30 MG INJ IV PRN (21:07)
[2016-11-29 21:57] VITALS: BP 148/66; RESP 20
[2016-11-30] MEDS: metroNIDAZOLE 500 MG/NS (PMX) 250 MG in EVAC CONTAINER 1 BOTTLE IVPB SCH ×3 (05:20→22:59)
[2016-11-30] MEDS: VANCOMYCIN 1 GM in NS 250 ML IVPB SCH ×2 (06:25→17:29)
[2016-11-30 06:56] LABS: POTASSIUM 3.5 mmol/L (3.5-5.1)
[2016-11-30 06:58] LABS: CREATININE 0.37 mg/dl (0.44-1.00)
[2016-11-30 06:59] LABS: CALCIUM 8.4 mg/dl (8.4-10.2); MAGNESIUM 2.1 mg/dl (1.7-2.5)
[2016-11-30 07:25] VITALS: BP 148/71; RESP 16
--- NOTE | 2016-11-30 07:53 | PN ---
Date/Time of Note Date/Time of Note DATE: 11/30/16 TIME: 07:50 Assessment/Plan Lines/Catheters IV Catheter Type (from [facility]): Saline Lock Vee in Place (from [facility]): No Assessment/Plan Chief Complaint/Hosp Course -Bilateral lower extremity atherosclerosis with gangrene: It seems the patient has developed a worsening right second toe gangrene now and previous amputation site. Patient does have severe pedal disease and perfusion past the forefoot is limited. She is S/P angiogram and intervention in order to increase her infrapopliteal perfusion. Unfortunately, we may be limited with our limb salvage for the patient and she may require major amputation -S/P Right 3rd toe ray amputation, 4&5th toe metatarsal amputation and debridement of stump, application of Acell graft and wound VAC. -Continue with IV antibiotics -Optimize vascular status (BP meds, diet, nutrition, exercise, sugar control, antiplatelets). 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 After extensive discussions with the patient she would like to have a major amputation . she would like to improve her quality of life and pursue a surgery that will provide better wound healing and recovery. We have explained to her a BKA-will have a higher percentage of wound healing in comparison to an open TMA with eventual wound closure, especially because of her severe tibial and pedal disease. Scheduled for 12/02 -Thank you for allowing us to partake in the care of your patient. Please call with any questions. Problems: Subjective 24 Hr Interval Summary no new vascular events overnight Exam/Review of Systems Vital Signs Vitals Vital Signs Date Time Temp Pulse Resp B/P Pulse Ox O2 Delivery O2 Flow Rate FiO2 11/29/16 21:57 98.1 81 20 148/66 97 11/28/16 21:30 Room Air Intake and Output 11/29/16 11/29/16 11/30/16 15:00 23:00 07:00 Intake Total 950 ml 400 ml Balance 950 ml 400 ml Exam Free Text/Dictation GENERAL: Alert and oriented x3. PULMONARY: Clear to auscultation bilaterally. CARDIOVASCULAR: S1, S2 present. ABDOMEN: Soft, nontender, nondistended. Bowel sounds positive. EXTREMITIES: Right lower extremity: Palpable femoral pulse, nonpalpable pedal pulse. Motor , sensory intact. Capillary refill 3 seconds. Amputation stump with gangrene and 2nd toe gangrene, dorsal foot with an eschar, 1st toe pale Results Result Diagram: 11/27/16 0540 11/30/16 0525 JOAQUINA MCKEON MD November 30, 2016 07:53
[2016-11-30] MEDS: INSULIN ASPART [NOVOLOG] 3 ML PEN SC SCH ×7 (08:00→21:07)
[2016-11-30] MEDS: CLOPIDOGREL 75 MG TAB PO SCH (08:34)
[2016-11-30] MEDS: DOCUSATE SODIUM 100 MG CAP PO SCH ×2 (08:34→21:06)
[2016-11-30] MEDS: GABAPENTIN 300 MG CAP PO SCH ×3 (08:34→21:06)
[2016-11-30] MEDS: FAMOTIDINE 20 MG TAB PO SCH ×2 (08:34→21:06)
[2016-11-30] MEDS: CHOLECALCIFEROL 2,000 UNIT CAP PO SCH (08:34)
[2016-11-30] MEDS: LISINOPRIL 20 MG TAB PO SCH (08:34)
[2016-11-30] MEDS: CEFEPIME 1GM/50 ML (PMX) 50 ML IVPB SCH ×2 (09:40→22:01)
--- NOTE | 2016-11-30 14:59 | RADRPT ---
Vent Rate: 72 bpm RR Interval: 0 msec FL Interval: 150 msec QRS Duration: 78 msec QT Interval: 412 msec QTC Interval: 451 msec P-R-T [place]: 71 - -41 - 44 degrees Sinus rhythm with occasional premature ventricular complexes Left axis deviation Cannot rule out Inferior infarct , age undetermined Abnormal ECG Electronically Signed By: Flaco Kohler [id number]
--- NOTE | 2016-11-30 16:08 | PN ---
DATE: 11/30/2016 SUBJECTIVE: The patient is alert, lying comfortably in bed. No fevers. Vital signs stable. BUN 1 3, creatinine 0.37. ANTIMICROBIALS: 1. She is on Flagyl. 2. Cefepime. 3. Vancomycin. PHYSICAL EXAMINATION: GENERAL: Well-developed, middle-aged woman who is awake, in no distress. HEENT: Head atraumatic, normocephalic. Sclerae anicteric. Buccal mucosa pink. NECK: Supple, trachea midline. CHEST: Rise symmetrical. Breath sounds diminished to bases. HEART: S1, S2. ABDOMEN: Soft. Bowel tones present. EXTREMITIES: With right lower extremity dressing intact. ASSESSMENT: 1. Bilateral lower extremity atherosclerosis with gangrene. 2. Status post colitis. 3. Severe peripheral vascular disease and arterial disease. 4. Diabetes. PLAN: The patient remains stable; vascular team on case who recommend below knee amputation. Dictated By: KATHERYN RINALDI SUPERVISOR [employer]ING [employer]PARTMENT for [employer] Conf#: [id number] DID#: [id number]
[2016-11-30] MEDS ORDERED: POTASSIUM CHLORIDE (SR) 20 MEQ TAB PO STA (18:22)
--- NOTE | 2016-11-30 18:22 | CONS ---
Date/Time of Note Date/Time of Note DATE: 11/30/16 TIME: 18:20 Assessment/Plan Assessment/Plan Chief Complaint/Hosp Course IMPRESSION: 1. Preoperative evaluation prior to lower extremity vascular surgery.-negative troponin x 3. EKD 11/28 with no sig changes/single PVC. Relatively recent negative stress test and NL EF/no sig valve abnl by echo 09/2016 2. Hypertension, labile, but currently under reasonable control. 3. Dyslipidemia. 4. 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 5. Diabetes mellitus. 6. Lower extremity gangrenous changes, right lower extremity. 7. Status post left lower extremity above-knee amputation. 8. Anemia. 9.PVC-single on ecg Recc: -OK to proceed with surgery at this time from cardiac standpoint at moderate risk -Continue plavix -Agree with increase in zestril and f/u BP -Local wound care/abx's -pnding vascular surgery -gentle k repletion Problems: Consultation Date/Type/Reason Admit Date/Time Nov 19, 2016 at 11:38 Initial Consult Date 11/28/2016 Type of Consultation: Cardiology Reason for Consultation Pre-op Referring Provider: JOAQUINA MCKEON MD Exam/Review of Systems Vital Signs Vitals Vital Signs Date Time Temp Pulse Resp B/P Pulse Ox O2 Delivery O2 Flow Rate FiO2 11/30/16 07:25 98.5 75 16 148/71 100 11/28/16 21:30 Room Air Intake and Output 11/29/16 11/29/16 11/30/16 15:00 23:00 07:00 Intake Total 950 ml 400 ml Balance 950 ml 400 ml Exam Review of Systems: CONSTITUTIONAL: No fevers, chills. PULMONARY: No sob CARDIOVASCULAR: No chest pain/palpitations GASTROINTESTINAL: No nausea/vomiting. GENITOURINARY: No hematuria/dysuria. MUSCULOSKELETAL: pain in foot/leg PSYCHIATRIC: The patient denies depression. NEUROLOGIC: No weakness Constitutional: alert Psych: no complaints Head: normocephalic ENMT: mucosa pink and moist Neck: jvd (8 cm water), supple Cardiovascular: regular rate and rhythm Gastrointestinal: non-tender, soft Musculoskeletal: muscle tone (normal) Extremities: edema (trace), other (Covered by dressing) Neurological: other (No focal deficits) Results Result Diagram: 11/27/16 0540 11/30/16 0525 Results 24 hrs Laboratory Tests Test 11/29/16 20:54 11/30/16 05:25 11/30/16 07:48 11/30/16 11:59 Bedside Glucose 166 81 187 Sodium Level 137 Potassium Level 3.5 Chloride Level 101 Carbon Dioxide Level 29 Anion Gap 11 Blood Urea Nitrogen 13 Creatinine 0.37 L Glucose Level 86 Calcium Level 8.4 Magnesium Level 2.1 Test 11/30/16 17:12 Bedside Glucose 179 Medications Medications Current Medications Diagnostic Test (Pha) 1 ea 1 ea 02 XX ; Start 11/20/16 at 02:00 Cefepime HCl 50 ml @ 100 mls/hr Q12 IVPB Last administered on 11/30/16 09:40; Admin Dose 100 MLS/HR; Start 11/19/16 at 18:30 Vancomycin HCl (Vancocin) 250 ml @ 125 mls/hr Q12H IVPB Last administered on 17:29; Admin Dose 125 MLS/HR; Start 11/19/16 at 18:00 Oxycodone/ Acetaminophen (Percocet (5/ 325)) 1 tab Q4H PRN PO PAIN Last administered on 11/22/16 20:17; Admin Dose 1 TAB; Start 11/19/16 at 18:30 Gabapentin (Neurontin) 300 mg TID PO Last administered on 11/30/16 12:14; Admin Dose 300 MG; Start 11/19/16 at 21:00 Oxycodone/ Acetaminophen (Percocet (5/ 325)) 2 tab Q4H PRN PO PAIN LEVEL 6-10 Last administered on 11/28/16 22:31; Admin Dose 2 TAB; Start 11/19/16 at 21:30 Miscellaneous Information 1 ea NOTE XX ; Start 11/20/16 at 08:00 Glucose (Glutose) 15 gm Q15M PRN PO DECREASED GLUCOSE; Start 11/20/16 at 08:00 Glucose (Glutose) 22.5 gm Q15M PRN PO DECREASED GLUCOSE; Start 11/20/16 at 08: 00 Dextrose (D50w Syringe) 25 ml Q15M PRN IV DECREASED GLUCOSE; Start 11/20/16 at 08:00 Dextrose (D50w Syringe) 50 ml Q15M PRN IV DECREASED GLUCOSE; Start 11/20/16 at 08:00 Glucagon (Glucagen) 1 mg Q15M PRN IM DECREASED GLUCOSE; Start 11/20/16 at 08:00 Glucose (Glutose) 15 gm Q15M PRN BUCCAL DECREASED GLUCOSE; Start 11/20/16 at 08 :00 Hydralazine HCl (Apresoline) 10 mg Q6H PRN IV SBP>160 Last administered on 11/28 19:37; Admin Dose 10 MG; Start 11/20/16 at 16:30 Insulin Glargine (Lantus) 6 unit DAILY@20 SC Last administered on 11/29/16 20: 56; Admin Dose 6 UNIT; Start 11/20/16 at 20:00 Cholecalciferol (Vitamin D) 2,000 unit DAILY PO Last administered on 11/30/16 08:34; Admin Dose 2,000 UNIT; Start 11/21/16 at 11:30 Famotidine (Pepcid) 20 mg BID PO Last administered on 11/30/16 08:34; Admin Dose 20 MG; Start 11/21/16 at 21:00 Clopidogrel Bisulfate 75 mg 75 mg DAILY PO Last administered on 11/30/16 08:34 ; Admin Dose 75 MG; Start 11/22/16 at 12:30 Metronidazole/N/A (Flagyl 500 Mg (Pmx)/Evac Container) 50 ml @ 50 mls/hr Q8 IVPB Last administered on 11/30/16 13:24; Admin Dose 50 MLS/HR; Start 11/23/16 at 22:00 Ondansetron HCl (Zofran Inj) 4 mg Q4H PRN IV NAUSEA AND/OR VOMITING Last administered on 11/29/16 20:58; Admin Dose 4 MG; Start 11/24/16 at 14:30 Metoclopramide HCl (Reglan) 5 mg Q4H PRN IV VOMITTING Last administered on 11/28 13:24; Admin Dose 5 MG; Start 11/26/16 at 18:00 Docusate Sodium (Colace) 100 mg BID PO Last administered on 11/30/16 08:34; Admin Dose 100 MG; Start 11/26/16 at 21:00 Hydromorphone HCl (Dilaudid) 1.5 mg Q4H PRN IV PAIN Last administered on 18:13; Admin Dose 1.5 MG; Start 11/26/16 at 18:00 Polyethylene Glycol (Miralax) 17 gm DAILY PRN PO CONSTIPATION Last administered on 11/28/16 16:47; Admin Dose 17 GM; Start 11/27/16 at 17:00 Atorvastatin Calcium (Lipitor) 40 mg DAILY@21 PO Last administered on 20:57; Admin Dose 40 MG; Start 11/28/16 at 21:00 Lisinopril (Zestril) 20 mg DAILY PO Last administered on 11/30/16 08:34; Admin Dose 20 MG; Start 11/30/16 at 09:00 Mirtazapine (Remeron) 15 mg HS PO Last administered on 11/29/16 20:57; Admin Dose 15 MG; Start 11/29/16 at 21:00 KAYLEIGH NORIEGA November 30, 2016 18:22
--- NOTE | 2016-11-30 18:58 | PN ---
DATE: 11/30/2016 INTERNAL MEDICINE FOLLOW UP SUBJECTIVE: Chart reviewed. Vascular eval noted. No significant changes. PHYSICAL EXAMINATION: VITAL SIGNS: Blood pressure 148/71, pulse 75, respirations 16, temperature 98.5. She is on room ai r saturating 100%. HEENT: Pupils are equal and reactive to light. NECK: Supple, no JVD noted, no cervical adenopathy noted, no carotid bruits heard. LUNGS: Fair breath sounds bilaterally. CARDIOVASCULAR: S1, S2 normal. ABDOMEN: Soft, nontender. No organomegaly or masses noted. EXTREMITIES: No clubbing or cyanosis noted. Gangrenous changes present. NEUROLOGIC: No changes. LABORATORY DATA: Sodium 137, potassium 3.5, chloride 101, CO2 of 29, BUN 13, creatinine 0.37, gluco se 86. IMPRESSION: 1. Severe peripheral vascular disease with gangrene. 2. History of hypertension. 3. History of hyperlipidemia. 4. Depression. 5. Diabetes mellitus with polyneuropathy. 6. Gangrenous toes. RECOMMENDATIONS: 1. Continue current treatment. 2. Continue antibiotics. 3. Cardiology followup. 4. Await final plans for surgery. Dictated By: MOHINI LEE MD, MA/TRACE Conf#: [id number] DID#: [id number]
[2016-11-30] MEDS ORDERED: DEXTROSE 5%-0.45% NACL 1,000 ML IV SCH (19:00)
[2016-11-30 20:39] VITALS: BP 181/77; RESP 18
[2016-11-30] MEDS: MIRTAZAPINE 15 MG TAB PO SCH (21:06)
[2016-11-30] MEDS: ATORVASTATIN 40 MG TAB PO SCH (21:06)
[2016-11-30] MEDS: INSULIN GLARGINE [LANtus] 3 ML PEN SC SCH (21:08)
[2016-11-30] MEDS: HYDROmorphONE 2 MG/ML SYG IV PRN (21:57)
--- NOTE | 2016-11-30 23:32 | PN ---
Date/Time of Note Date/Time of Note DATE: 11/30/16 TIME: 23:32 Assessment/Plan Lines/Catheters IV Catheter Type (from [facility]): Saline Lock Vee in Place (from [facility]): No Assessment/Plan Problems: (1) Diabetes, polyneuropathy (2) Peripheral vascular disease (3) Cellulitis of right foot (4) Open wound of right foot (5) Acquired absence of left leg above knee (6) Peripheral vascular disease Status: Chronic (7) Diabetes mellitus with polyneuropathy Status: Chronic Qualifiers: Diabetes mellitus type: type 2 Qualified Code: E11.42 - Diabetic polyneuropathy associated with type 2 diabetes mellitus (8) Gangrene of toe Status: Chronic (9) Adjustment disorder with depressed mood Status: Acute (10) Hyperlipidemia Status: Chronic Qualifiers: Hyperlipidemia type: pure hypercholesterolemia Qualified Code: E78.00 - Pure hypercholesterolemia (11) Essential hypertension Status: Chronic Assessment/Plan Patient is apparently amenable to below the knee amputation of the right lower extremity. Vascular surgery is on the case. I will follow-up in house. Exam/Review of Systems Vital Signs Vitals Vital Signs Date Time Temp Pulse Resp B/P Pulse Ox O2 Delivery O2 Flow Rate FiO2 11/30/16 20:39 97.5 87 18 181/77 100 11/28/16 21:30 Room Air Intake and Output 11/29/16 11/29/16 11/30/16 15:00 23:00 07:00 Intake Total 950 ml 400 ml Balance 950 ml 400 ml Results Result Diagram: 11/27/16 0540 11/30/16 0525 MARIANA LING DPM November 30, 2016 23:32
[2016-12-01] VITALS (12 sets, daily range): BP systolic 106–162; BP diastolic 59–77; PULSE 85–106; RESP 10–24
[2016-12-01] MEDS: OXYCODONE/ACETAMINOPHEN (5/325) TAB PO PRN ×3 (00:14→23:22)
[2016-12-01] MEDS: INSULIN ASPART [NOVOLOG] 3 ML PEN SC SCH ×9 (00:24→21:00)
[2016-12-01] MEDS: ACCU-CHEK XX SCH (00:41)
[2016-12-01] MEDS: VANCOMYCIN 1 GM in NS 250 ML IVPB SCH ×2 (04:42→07:15)
[2016-12-01] MEDS: metroNIDAZOLE 500 MG/NS (PMX) 250 MG in EVAC CONTAINER 1 BOTTLE IVPB SCH ×3 (07:30→23:17)
[2016-12-01] MEDS ORDERED: MIDAZOLAM 1 MG/ML 2 ML INJ ONE ×2 (07:50)
[2016-12-01] MEDS ORDERED: FENTAnyl 50 MCG/ML VIAL ONE (07:50)
[2016-12-01] MEDS ORDERED: PROPOFOL 60 ML ONE (07:57)
--- NOTE | 2016-12-01 08:12 | HPN ---
Date/Time of Note Date/Time of Note DATE: 12/01/16 TIME: 08:12 Interval H&P Admission Note Pt. seen H&P reviewed: No system changes JOAQUINA MCKEON MD December 01, 2016 08:12
[2016-12-01] MEDS ORDERED: ROPIVACAINE 0.5 % 30 ML VIAL ONE (08:51)
[2016-12-01] MEDS ORDERED: POLYMYXIN/BACITRACIN 1L IRRIG IRR ONE (08:54)
[2016-12-01] MEDS: CLOPIDOGREL 75 MG TAB PO SCH (09:00)
[2016-12-01] MEDS ORDERED: EPHEDrine SULFATE 50 MG/5 ML SYG IV PRN (09:00)
[2016-12-01] MEDS ORDERED: HYDROmorphONE (0.2 MG/ML) 10ML SYG IV PRN ×2 (09:00)
[2016-12-01] MEDS: CEFEPIME 1GM/50 ML (PMX) 50 ML IVPB SCH ×2 (09:00→21:10)
[2016-12-01] MEDS ORDERED: MEPERIDINE 25 MG INJ IV PRN (09:00)
[2016-12-01] MEDS ORDERED: LABETALOL HCL 20MG INJ IV PRN (09:00)
[2016-12-01] MEDS ORDERED: DIPHENHYDRAMINE 50 MG INJ IV PRN (09:00)
[2016-12-01] MEDS ORDERED: hydrALAzine 20 MG INJ IV PRN (09:00)
[2016-12-01] MEDS: LISINOPRIL 20 MG TAB PO SCH (09:00)
[2016-12-01] MEDS ORDERED: ONDANSETRON 4 MG INJ IV PRN ×2 (09:00)
[2016-12-01] MEDS: GABAPENTIN 300 MG CAP PO SCH ×3 (09:00→21:11)
[2016-12-01] MEDS ORDERED: HYDROmorphONE 1 MG/ML SYG IV PRN ×2 (09:00)
[2016-12-01] MEDS: CHOLECALCIFEROL 2,000 UNIT CAP PO SCH (09:00)
[2016-12-01] MEDS ORDERED: INSULIN ASPART [NOVOLOG] 3 ML PEN SC ONE (09:00)
[2016-12-01] MEDS: FAMOTIDINE 20 MG TAB PO SCH ×2 (09:00→21:11)
[2016-12-01] MEDS ORDERED: FENTAnyl 50 MCG/ML VIAL IV PRN ×2 (09:00)
[2016-12-01] MEDS: DOCUSATE SODIUM 100 MG CAP PO SCH ×2 (09:00→21:11)
[2016-12-01] MEDS ORDERED: NALOXONE (0.4 MG/ML) INJ IV PRN (09:00)
--- NOTE | 2016-12-01 10:36 | OPR ---
Date/Time of Note Date/Time of Note DATE: 12/01/16 TIME: 10:32 Operative Report Free Text/Dictation DATE OF OPERATION: 12/01/2016 SURGEON: Zhou Mckeon MD PREOPERATIVE DIAGNOSIS: Right Lower Extremity gangrene POSTOPERATIVE DIAGNOSIS: same ANESTHESIA: Spinal BLOOD LOSS: 50ml COMPLICATIONS: None. PROCEDURE: 1. Right below knee amputation Indications: The patient is a 51-year-old female with a nonhealing gangrenous forefoot wound and ischemic foot with non-reconstructible occlusive disease in which she has become limited with her ambulatory. The risks of surgical intervention were discussed with the patient. Risks including but not limited to bleeding, myocardial infarction, , infection, and patient has agreed to proceed. Description of procedure: The patient was placed supine. The lower extremity was prepped and draped in the usual sterile fashion. The preoperative antibiotics were given. Spinal anesthesia was induced and patient tolerated well. An occlusive dressing was applied to the foot up to the level of the ankle. Anterior and posterior skin incisions were outlined with a marking pen. The anterior skin incision was made 12 cm below the tibial tuberosity and extended medially and laterally toward the edges of the gastrocnemius muscle. The skin incision was then extended distally on either side parallel to the tibia for 12 15 cm, creating a posterior flap. The skin and subcutaneous tissues were incised down to the fascia. The greater and short saphenous veins on the medial and posterior aspects of the leg, respectively, were ligated and divided. The fascia and the muscles were then divided with the electrocautery at the same level of the anterior skin incision. The muscles in the anterior and lateral compartment were divided, exposing the anterior tibial vessels, which were ligated and divided. The interosseous membrane was then incised. The tibial periosteum was incised circumferentially with the electrocautery at the same level of the skin and muscle division. Using a periosteal elevator, the tibial periosteum was stripped proximally for 2 cm. The tibia was then transected with an electric saw 2 cm proximal to the skin incision with an anterior bevel. The fibula was then exposed, dissected circumferentially, and transected with a bone cutter 2 cm proximal to the tibial division. The amputation was then completed with an amputation knife, transecting the soleus muscle obliquely and the gastrocnemius muscle at the same level as the posterior flap. Bleeding soleal veins and posterior tibial and peroneal vessels were clamped and oversewn with 2-0 silk sutures. Sharp bony edges were then filed, eliminating any bony prominences over the anterior aspect of the tibia. The fascia of the anterior and posterior muscle flaps were approximated with interrupted absorbable sutures. The dermal layer was approximated with interrupted 3-0 Vicryl sutures and skin marilin were applied. The stump was dressed with 4 4 gauze, Kerlix, and an Kehinde bandage. The patient tolerated the procedure well and was taken to the postanesthesia care unit in stable condition. All instruments, sponges, and needles were correct x 2. Anesthesia: general, MAC ZHOU MCKEON MD December 01, 2016 10:36
[2016-12-01] MEDS: HYDROmorphONE 2 MG/ML SYG IV PRN ×3 (12:25→19:46)
--- NOTE | 2016-12-01 13:05 | PN ---
DATE: 12/01/2016 SUBJECTIVE: The patient had an amputation this morning. She is alert, awake, eating lunch. Family at bedside. No fevers. ANTIMICROBIALS: 1. Flagyl. 2. Vancomycin. 3. Cefepime. PHYSICAL EXAMINATION: GENERAL: This is a well-developed, middle-aged woman who is alert, in no distress. HEENT: Head atraumatic, normocephalic. Sclerae anicteric. Buccal mucosa pink. NECK: Supple, trachea midline. CHEST: Rise symmetrical. Breath sounds clear. HEART: S1, S2. ABDOMEN: Soft. Bowel sounds present. EXTREMITIES: With right lower extremity dressing intact. ASSESSMENT: 1. Severe peripheral arterial disease, status post left above-knee amputation with disarticulation. 2. Right lower extremity gangrene, status post below-knee amputation this a.m. 3. History of Clostridium difficile colitis. 4. Diabetes. PLAN: The patient remains stable postoperatively. Continue present care. Follow recommendations o f vascular team. Dictated By: KATHERYN RINALDI [address] ATTENDANT for SAVANNA ANN/TRACE Conf#: [id number] DID#: [id number]
--- NOTE | 2016-12-01 15:01 | PN ---
Date/Time of Note Date/Time of Note DATE: 12/01/16 TIME: 14:54 Assessment/Plan VTE Prophylaxis VTE Prophylaxis Intervention: other Lines/Catheters IV Catheter Type (from Nrsg): Peripheral IV Central line still needed: Yes Urinary Cath still in place: Yes Reason Cath still needed: other (indicate) Assessment/Plan Assessment/Plan 1. Right lower extremity gangrenous wound with infection of 4th and 5th toe. The patient is S/P incision and drainage of the 4th and 5th toe with amputation of the right third toe by vascular surgery on 11/20/2016. s/p right BKA on 2016, follow up with surgery and physical therapy 2. Type 2 diabetes mellitus. Hemoglobin A1c 6.5. on insulins 3. Essential hypertension. controlled 4. Peripheral vascular disease. on plavix 5. Diabetic neuropathy. The patient will be continued on gabapentin. 6. Normocytic normochromic anemia. 7. Vitamin D deficiency. Continue vitamin D supplements. Subjective 24 Hr Interval Summary Free Text/Dictation back from surgery for right BKA Exam/Review of Systems Vital Signs Vitals Vital Signs Date Time Temp Pulse Resp B/P Pulse Ox O2 Delivery O2 Flow Rate FiO2 12/01/16 11:07 97.8 90 20 119/59 100 12/01/16 10:36 Room Air Intake and Output 11/30/16 11/30/16 12/01/16 15:00 23:00 07:00 Intake Total 150 ml 1060 ml 720 ml Balance 150 ml 1060 ml 720 ml Exam Constitutional: alert, oriented, well developed Psych: nl mood/affect, no complaints Head: atraumatic, normocephalic Eyes: EOMI, nl conjunctiva, nl lids ENMT: nl external ears & nose, nl lips & teeth, nl nasal mucosa & septum Neck: non-tender, supple Respiratory: clear to auscultation, normal air movement, No congested cough, No crackles/rales, No diminished breath sounds, No intercostal retraction, No labored breathing, No other, No respirations, No tactile fremitus, No wheezing Cardiovascular: nl pulses, regular rate and rhythm, No S3, No S4, No bruits, No diastolic murmur, No edema, No gallop, No irregular rhythm, No jugular venous distention (JVD), No murmurs/extra sounds, No other, No rub, No systolic murmur Gastrointestinal: nl liver, spleen, non-tender, soft, No ascites, No bowel sounds, No distended, No firm, No hepatomegaly, No mass , No other, No rebound or guarding, No splenomegaly, No surgical scars, No tender Musculoskeletal: other (right BKA) Extremities: other (right BKA) 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, nl mental status, nl speech, nl strength Results Result Diagram: 11/27/16 0540 11/30/16 0525 Results 24 hrs Laboratory Tests Test 11/30/16 17:12 11/30/16 20:57 12/01/16 00:21 12/01/16 04:37 Bedside Glucose 179 222 H 167 136 Test 12/01/16 10:00 12/01/16 12:04 Bedside Glucose 225 H 184 Medications Medications Current Medications Diagnostic Test (Pha) 1 ea 1 ea 02 XX ; Start 11/20/16 at 02:00 Cefepime HCl 50 ml @ 100 mls/hr Q12 IVPB Last administered on 11/30/16 22:01; Admin Dose 100 MLS/HR; Start 11/19/16 at 18:30 Vancomycin HCl (Vancocin) 250 ml @ 125 mls/hr Q12H IVPB Last administered on 04:42; Admin Dose 125 MLS/HR; Start 11/19/16 at 18:00 Oxycodone/ Acetaminophen (Percocet (5/ 325)) 1 tab Q4H PRN PO PAIN Last administered on 11/22/16 20:17; Admin Dose 1 TAB; Start 11/19/16 at 18:30 Gabapentin (Neurontin) 300 mg TID PO Last administered on 12/01/16 13:09; Admin Dose 300 MG; Start 11/19/16 at 21:00 Oxycodone/ Acetaminophen (Percocet (5/ 325)) 2 tab Q4H PRN PO PAIN LEVEL 6-10 Last administered on 12/01/16 00:14; Admin Dose 2 TAB; Start 11/19/16 at 21:30 Miscellaneous Information 1 ea NOTE XX ; Start 11/20/16 at 08:00 Glucose (Glutose) 15 gm Q15M PRN PO DECREASED GLUCOSE; Start 11/20/16 at 08:00 Glucose (Glutose) 22.5 gm Q15M PRN PO DECREASED GLUCOSE; Start 11/20/16 at 08: 00 Dextrose (D50w Syringe) 25 ml Q15M PRN IV DECREASED GLUCOSE; Start 11/20/16 at 08:00 Dextrose (D50w Syringe) 50 ml Q15M PRN IV DECREASED GLUCOSE; Start 11/20/16 at 08:00 Glucagon (Glucagen) 1 mg Q15M PRN IM DECREASED GLUCOSE; Start 11/20/16 at 08:00 Glucose (Glutose) 15 gm Q15M PRN BUCCAL DECREASED GLUCOSE; Start 11/20/16 at 08 :00 Hydralazine HCl (Apresoline) 10 mg Q6H PRN IV SBP>160 Last administered on 11/28 19:37; Admin Dose 10 MG; Start 11/20/16 at 16:30 Insulin Glargine (Lantus) 6 unit DAILY@20 SC Last administered on 11/30/16 21: 08; Admin Dose 6 UNIT; Start 11/20/16 at 20:00 Cholecalciferol (Vitamin D) 2,000 unit DAILY PO Last administered on 11/30/16 08:34; Admin Dose 2,000 UNIT; Start 11/21/16 at 11:30 Famotidine (Pepcid) 20 mg BID PO Last administered on 11/30/16 21:06; Admin Dose 20 MG; Start 11/21/16 at 21:00 Clopidogrel Bisulfate 75 mg 75 mg DAILY PO Last administered on 11/30/16 08:34 ; Admin Dose 75 MG; Start 11/22/16 at 12:30 Metronidazole/N/A (Flagyl 500 Mg (Pmx)/Evac Container) 50 ml @ 50 mls/hr Q8 IVPB Last administered on 11/30/16 22:59; Admin Dose 50 MLS/HR; Start 11/23/16 at 22:00 Ondansetron HCl (Zofran Inj) 4 mg Q4H PRN IV NAUSEA AND/OR VOMITING Last administered on 11/29/16 20:58; Admin Dose 4 MG; Start 11/24/16 at 14:30 Metoclopramide HCl (Reglan) 5 mg Q4H PRN IV VOMITTING Last administered on 11/28 13:24; Admin Dose 5 MG; Start 11/26/16 at 18:00 Docusate Sodium (Colace) 100 mg BID PO Last administered on 11/30/16 21:06; Admin Dose 100 MG; Start 11/26/16 at 21:00 Hydromorphone HCl (Dilaudid) 1.5 mg Q4H PRN IV PAIN Last administered on 12:25; Admin Dose 1.5 MG; Start 11/26/16 at 18:00 Polyethylene Glycol (Miralax) 17 gm DAILY PRN PO CONSTIPATION Last administered on 11/28/16 16:47; Admin Dose 17 GM; Start 11/27/16 at 17:00 Atorvastatin Calcium (Lipitor) 40 mg DAILY@21 PO Last administered on 11/30/16 21:06; Admin Dose 40 MG; Start 11/28/16 at 21:00 Lisinopril (Zestril) 20 mg DAILY PO Last administered on 11/30/16 08:34; Admin Dose 20 MG; Start 11/30/16 at 09:00 Mirtazapine (Remeron) 15 mg HS PO Last administered on 11/30/16 21:06; Admin Dose 15 MG; Start 11/29/16 at 21:00 Insulin Aspart (Novolog Insulin Pen) NOVOLOG *MILD* ALGORI... Q4 SC Last administered on 12/01/16 13:08; Admin Dose 2 UNIT; Start 11/30/16 at 21:00 Hydromorphone HCl (Dilaudid) 0.2 mg Q2H PRN IV PAIN LEVEL 1-5; Start 12/01/16 at 09:00 Hydromorphone HCl (Dilaudid) 0.4 mg Q2H PRN IV PAIN LEVEL 6-10; Start 12/01/16 at 09:00 Diphenhydramine HCl (Benadryl) 25 mg Q4H PRN IV PRURITUS; Start 12/01/16 at 09: 00 Ondansetron HCl (Zofran Inj) 4 mg Q6H PRN IV NAUSEA AND/OR VOMITING; Start 12/01 at 09:00 Naloxone HCl (Narcan) 0.2 mg Q2M PRN IV FOR RESP RATE 8 OR LESS; Start 12/01/16 at 09:00 BI VALLEJO MD December 01, 2016 15:01
--- NOTE | 2016-12-01 16:12 | CONS ---
Date/Time of Note Date/Time of Note DATE: 12/01/16 TIME: 16:11 Assessment/Plan Assessment/Plan Additional Assessment/Plan Pt stable per report - not examined. Will follow tomorrow. Consultation Date/Type/Reason Admit Date/Time Nov 19, 2016 at 11:38 Initial Consult Date Type of Consultation: Cardiology Referring Provider: JOAQUINA MCKEON MD Exam/Review of Systems Vital Signs Vitals Vital Signs Date Time Temp Pulse Resp B/P Pulse Ox O2 Delivery O2 Flow Rate FiO2 12/01/16 11:07 97.8 90 20 119/59 100 12/01/16 10:36 Room Air Intake and Output 11/30/16 11/30/16 12/01/16 15:00 23:00 07:00 Intake Total 150 ml 1060 ml 720 ml Balance 150 ml 1060 ml 720 ml Results Result Diagram: 11/27/16 0540 11/30/16 0525 Results 24 hrs Laboratory Tests Test 11/30/16 17:12 11/30/16 20:57 12/01/16 00:21 12/01/16 04:37 Bedside Glucose 179 222 H 167 136 Test 12/01/16 10:00 12/01/16 12:04 Bedside Glucose 225 H 184 Medications Medications Current Medications Diagnostic Test (Pha) 1 ea 1 ea 02 XX ; Start 11/20/16 at 02:00 Cefepime HCl 50 ml @ 100 mls/hr Q12 IVPB Last administered on 11/30/16 22:01; Admin Dose 100 MLS/HR; Start 11/19/16 at 18:30 Vancomycin HCl (Vancocin) 250 ml @ 125 mls/hr Q12H IVPB Last administered on 04:42; Admin Dose 125 MLS/HR; Start 11/19/16 at 18:00 Oxycodone/ Acetaminophen (Percocet (5/ 325)) 1 tab Q4H PRN PO PAIN Last administered on 11/22/16 20:17; Admin Dose 1 TAB; Start 11/19/16 at 18:30 Gabapentin (Neurontin) 300 mg TID PO Last administered on 12/01/16 13:09; Admin Dose 300 MG; Start 11/19/16 at 21:00 Oxycodone/ Acetaminophen (Percocet (5/ 325)) 2 tab Q4H PRN PO PAIN LEVEL 6-10 Last administered on 12/01/16 00:14; Admin Dose 2 TAB; Start 11/19/16 at 21:30 Miscellaneous Information 1 ea NOTE XX ; Start 11/20/16 at 08:00 Glucose (Glutose) 15 gm Q15M PRN PO DECREASED GLUCOSE; Start 11/20/16 at 08:00 Glucose (Glutose) 22.5 gm Q15M PRN PO DECREASED GLUCOSE; Start 11/20/16 at 08: 00 Dextrose (D50w Syringe) 25 ml Q15M PRN IV DECREASED GLUCOSE; Start 11/20/16 at 08:00 Dextrose (D50w Syringe) 50 ml Q15M PRN IV DECREASED GLUCOSE; Start 11/20/16 at 08:00 Glucagon (Glucagen) 1 mg Q15M PRN IM DECREASED GLUCOSE; Start 11/20/16 at 08:00 Glucose (Glutose) 15 gm Q15M PRN BUCCAL DECREASED GLUCOSE; Start 11/20/16 at 08 :00 Hydralazine HCl (Apresoline) 10 mg Q6H PRN IV SBP>160 Last administered on 11/28 19:37; Admin Dose 10 MG; Start 11/20/16 at 16:30 Insulin Glargine (Lantus) 6 unit DAILY@20 SC Last administered on 11/30/16 21: 08; Admin Dose 6 UNIT; Start 11/20/16 at 20:00 Cholecalciferol (Vitamin D) 2,000 unit DAILY PO Last administered on 11/30/16 08:34; Admin Dose 2,000 UNIT; Start 11/21/16 at 11:30 Famotidine (Pepcid) 20 mg BID PO Last administered on 11/30/16 21:06; Admin Dose 20 MG; Start 11/21/16 at 21:00 Clopidogrel Bisulfate 75 mg 75 mg DAILY PO Last administered on 11/30/16 08:34 ; Admin Dose 75 MG; Start 11/22/16 at 12:30 Metronidazole/N/A (Flagyl 500 Mg (Pmx)/Evac Container) 50 ml @ 50 mls/hr Q8 IVPB Last administered on 11/30/16 22:59; Admin Dose 50 MLS/HR; Start 11/23/16 at 22:00 Ondansetron HCl (Zofran Inj) 4 mg Q4H PRN IV NAUSEA AND/OR VOMITING Last administered on 11/29/16 20:58; Admin Dose 4 MG; Start 11/24/16 at 14:30 Metoclopramide HCl (Reglan) 5 mg Q4H PRN IV VOMITTING Last administered on 11/28 13:24; Admin Dose 5 MG; Start 11/26/16 at 18:00 Docusate Sodium (Colace) 100 mg BID PO Last administered on 11/30/16 21:06; Admin Dose 100 MG; Start 11/26/16 at 21:00 Hydromorphone HCl (Dilaudid) 1.5 mg Q4H PRN IV PAIN Last administered on 15:50; Admin Dose 1.5 MG; Start 11/26/16 at 18:00 Polyethylene Glycol (Miralax) 17 gm DAILY PRN PO CONSTIPATION Last administered on 11/28/16 16:47; Admin Dose 17 GM; Start 11/27/16 at 17:00 Atorvastatin Calcium (Lipitor) 40 mg DAILY@21 PO Last administered on 11/30/16 21:06; Admin Dose 40 MG; Start 11/28/16 at 21:00 Lisinopril (Zestril) 20 mg DAILY PO Last administered on 11/30/16 08:34; Admin Dose 20 MG; Start 11/30/16 at 09:00 Mirtazapine (Remeron) 15 mg HS PO Last administered on 11/30/16 21:06; Admin Dose 15 MG; Start 11/29/16 at 21:00 Insulin Aspart (Novolog Insulin Pen) NOVOLOG *MILD* ALGORI... Q4 SC Last administered on 12/01/16 13:08; Admin Dose 2 UNIT; Start 11/30/16 at 21:00 Hydromorphone HCl (Dilaudid) 0.2 mg Q2H PRN IV PAIN LEVEL 1-5; Start 12/01/16 at 09:00 Hydromorphone HCl (Dilaudid) 0.4 mg Q2H PRN IV PAIN LEVEL 6-10; Start 12/01/16 at 09:00 Diphenhydramine HCl (Benadryl) 25 mg Q4H PRN IV PRURITUS; Start 12/01/16 at 09: 00 Ondansetron HCl (Zofran Inj) 4 mg Q6H PRN IV NAUSEA AND/OR VOMITING; Start 12/01 at 09:00 Naloxone HCl (Narcan) 0.2 mg Q2M PRN IV FOR RESP RATE 8 OR LESS; Start 12/01/16 at 09:00 APRYL IVY MD December 01, 2016 16:12
[2016-12-01] MEDS ORDERED: HYDROmorphONE 1 MG/ML SYG IV ONE (21:01)
[2016-12-01] MEDS: INSULIN GLARGINE [LANtus] 3 ML PEN SC SCH (21:10)
[2016-12-01] MEDS: MIRTAZAPINE 15 MG TAB PO SCH (21:11)
[2016-12-01] MEDS: ATORVASTATIN 40 MG TAB PO SCH (21:11)
[2016-12-02] MEDS: ACCU-CHEK XX SCH (02:00)
[2016-12-02] MEDS: HYDROmorphONE 2 MG/ML SYG IV PRN ×2 (02:50→08:14)
[2016-12-02] MEDS: metroNIDAZOLE 500 MG/NS (PMX) 250 MG in EVAC CONTAINER 1 BOTTLE IVPB SCH ×3 (04:54→22:15)
[2016-12-02] MEDS: VANCOMYCIN 1 GM in NS 250 ML IVPB SCH ×2 (06:13→17:20)
[2016-12-02 07:40] VITALS: BP 190/88; RESP 20
[2016-12-02 08:20] VITALS: BP 150/69
[2016-12-02] MEDS: INSULIN ASPART [NOVOLOG] 3 ML PEN SC SCH ×7 (08:34→21:00)
[2016-12-02] MEDS: CEFEPIME 1GM/50 ML (PMX) 50 ML IVPB SCH ×3 (09:00→20:28)
[2016-12-02] MEDS: FAMOTIDINE 20 MG TAB PO SCH ×2 (09:53→20:23)
[2016-12-02] MEDS: CHOLECALCIFEROL 2,000 UNIT CAP PO SCH (09:53)
[2016-12-02] MEDS: LISINOPRIL 20 MG TAB PO SCH (09:53)
[2016-12-02] MEDS: CLOPIDOGREL 75 MG TAB PO SCH (09:53)
[2016-12-02] MEDS: GABAPENTIN 300 MG CAP PO SCH ×3 (09:53→20:23)
[2016-12-02] MEDS: DOCUSATE SODIUM 100 MG CAP PO SCH ×2 (09:53→20:23)
[2016-12-02] MEDS: OXYCODONE/ACETAMINOPHEN (5/325) TAB PO PRN ×2 (11:00→19:27)
[2016-12-02] MEDS: HYDROmorphONE 1 MG/ML SYG IV PRN ×3 (11:46→20:20)
[2016-12-02 12:00] VITALS: BP 135/80
--- NOTE | 2016-12-02 13:53 | PN ---
DATE: 12/02/2016 SUBJECTIVE: No events overnight. The patient is awake. Complaining of pain, looks comfortable. T -max 99.6. No labs this morning. ANTIMICROBIALS: She is on: 1. Flagyl. 2. Cefepime. 3. Vancomycin. PHYSICAL EXAMINATION: GENERAL: Well-developed, middle-aged woman who is awake, in no distress. HEENT: Head atraumatic, normocephalic. Sclerae anicteric. Buccal mucosa pink. NECK: Supple. CHEST: Rise symmetrical. Breath sounds clear. HEART: S1, S2. ABDOMEN: Soft, bowel tones present. EXTREMITIES: With right lower extremity dressing intact. ASSESSMENT: 1. Severe peripheral arterial disease status post right below-knee amputation, postop day #2. 2. History of Clostridium difficile colitis. 3. Diabetes. 4. History of left above-knee amputation. PLAN: The patient remains stable postoperatively. Continue present care. Pain management. Dakotah dougherty discuss with vascular team plans for further antibiotic management. Dictated By: KATHERYN RINALDI TUFTING MACHINE OPERATOR SINGLE NEEDLE for SAVANNA ANN/TRACE Conf#: [id number] DID#: [id number]
--- NOTE | 2016-12-02 15:02 | PN ---
Date/Time of Note Date/Time of Note DATE: 12/02/16 TIME: 14:59 Assessment/Plan VTE Prophylaxis VTE Prophylaxis Intervention: SCD's Lines/Catheters IV Catheter Type (from Nrsg): Peripheral IV Urinary Cath still in place: Yes Reason Cath still needed: other (indicate) Assessment/Plan Assessment/Plan 1. Right lower extremity gangrenous wound with infection of 4th and 5th toe. The patient is S/P incision and drainage of the 4th and 5th toe with amputation of the right third toe by vascular surgery on 11/20/2016. s/p right BKA on 2016, follow up with surgery and physical therapy, adjust pain medications 2. Type 2 diabetes mellitus. Hemoglobin A1c 6.5. on insulins 3. Essential hypertension. controlled 4. Peripheral vascular disease. on plavix 5. Diabetic neuropathy. The patient will be continued on gabapentin. 6. Normocytic normochromic anemia. 7. Vitamin D deficiency. Continue vitamin D supplements. Subjective 24 Hr Interval Summary Free Text/Dictation pain on right leg Exam/Review of Systems Vital Signs Vitals Vital Signs Date Time Temp Pulse Resp B/P Pulse Ox O2 Delivery O2 Flow Rate FiO2 12/02/16 08:20 150/69 12/02/16 07:40 99.6 129 20 98 12/01/16 10:36 Room Air Intake and Output 12/01/16 12/01/16 12/02/16 15:00 23:00 07:00 Intake Total 700 ml 900 ml 580 ml Output Total 1250 ml 700 ml 1100 ml Balance -550 ml 200 ml -520 ml Exam Constitutional: alert, oriented, well developed Psych: nl mood/affect, no complaints Head: atraumatic, normocephalic Eyes: EOMI, PERRL, nl conjunctiva, nl lids ENMT: nl external ears & nose, nl lips & teeth, nl nasal mucosa & septum Respiratory: clear to auscultation, normal air movement, No congested cough, No crackles/rales, No diminished breath sounds, No intercostal retraction, No labored breathing, No other, No respirations, No tactile fremitus, No wheezing Cardiovascular: nl pulses, regular rate and rhythm, No S3, No S4, No bruits, No diastolic murmur, No edema, No gallop, No irregular rhythm, No jugular venous distention (JVD), No murmurs/extra sounds, No other, No rub, No systolic murmur Gastrointestinal: nl liver, spleen, non-tender, soft, No ascites, No bowel sounds, No distended, No firm, No hepatomegaly, No mass , No other, No rebound or guarding, No splenomegaly, No surgical scars, No tender Musculoskeletal: other (s/p right BKA) Extremities: other (right BKA) 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, nl mental status, nl speech, nl strength Results Result Diagram: 11/30/16 0525 Results 24 hrs Laboratory Tests Test 12/01/16 17:30 12/01/16 21:04 12/02/16 08:22 12/02/16 12:26 Bedside Glucose 190 145 205 150 Medications Medications Current Medications Diagnostic Test (Pha) 1 ea 1 ea 02 XX ; Start 11/20/16 at 02:00 Cefepime HCl 50 ml @ 100 mls/hr Q12 IVPB Last administered on 12/02/16 12:27; Admin Dose 100 MLS/HR; Start 11/19/16 at 18:30 Vancomycin HCl (Vancocin) 250 ml @ 125 mls/hr Q12H IVPB Last administered on 06:13; Admin Dose 125 MLS/HR; Start 11/19/16 at 18:00 Oxycodone/ Acetaminophen (Percocet (5/ 325)) 1 tab Q4H PRN PO PAIN Last administered on 12/01/16 17:36; Admin Dose 1 TAB; Start 11/19/16 at 18:30 Gabapentin (Neurontin) 300 mg TID PO Last administered on 12/02/16 12:27; Admin Dose 300 MG; Start 11/19/16 at 21:00 Oxycodone/ Acetaminophen (Percocet (5/ 325)) 2 tab Q4H PRN PO PAIN LEVEL 6-10 Last administered on 12/02/16 11:00; Admin Dose 2 TAB; Start 11/19/16 at 21:30 Miscellaneous Information 1 ea NOTE XX ; Start 11/20/16 at 08:00 Glucose (Glutose) 15 gm Q15M PRN PO DECREASED GLUCOSE; Start 11/20/16 at 08:00 Glucose (Glutose) 22.5 gm Q15M PRN PO DECREASED GLUCOSE; Start 11/20/16 at 08: 00 Dextrose (D50w Syringe) 25 ml Q15M PRN IV DECREASED GLUCOSE; Start 11/20/16 at 08:00 Dextrose (D50w Syringe) 50 ml Q15M PRN IV DECREASED GLUCOSE; Start 11/20/16 at 08:00 Glucagon (Glucagen) 1 mg Q15M PRN IM DECREASED GLUCOSE; Start 11/20/16 at 08:00 Glucose (Glutose) 15 gm Q15M PRN BUCCAL DECREASED GLUCOSE; Start 11/20/16 at 08 :00 Hydralazine HCl (Apresoline) 10 mg Q6H PRN IV SBP>160 Last administered on 11/28 19:37; Admin Dose 10 MG; Start 11/20/16 at 16:30 Insulin Glargine (Lantus) 6 unit DAILY@20 SC Last administered on 12/01/16 21: 10; Admin Dose 6 UNIT; Start 11/20/16 at 20:00 Cholecalciferol (Vitamin D) 2,000 unit DAILY PO Last administered on 12/02/16 09:53; Admin Dose 2,000 UNIT; Start 11/21/16 at 11:30 Famotidine (Pepcid) 20 mg BID PO Last administered on 12/02/16 09:53; Admin Dose 20 MG; Start 11/21/16 at 21:00 Clopidogrel Bisulfate 75 mg 75 mg DAILY PO Last administered on 12/02/16 09:53 ; Admin Dose 75 MG; Start 11/22/16 at 12:30 Metronidazole/N/A (Flagyl 500 Mg (Pmx)/Evac Container) 50 ml @ 50 mls/hr Q8 IVPB Last administered on 12/02/16 14:24; Admin Dose 50 MLS/HR; Start 11/23/16 at 22:00 Ondansetron HCl (Zofran Inj) 4 mg Q4H PRN IV NAUSEA AND/OR VOMITING Last administered on 11/29/16 20:58; Admin Dose 4 MG; Start 11/24/16 at 14:30 Metoclopramide HCl (Reglan) 5 mg Q4H PRN IV VOMITTING Last administered on 11/28 13:24; Admin Dose 5 MG; Start 11/26/16 at 18:00 Docusate Sodium (Colace) 100 mg BID PO Last administered on 12/02/16 09:53; Admin Dose 100 MG; Start 11/26/16 at 21:00 Polyethylene Glycol (Miralax) 17 gm DAILY PRN PO CONSTIPATION Last administered on 11/28/16 16:47; Admin Dose 17 GM; Start 11/27/16 at 17:00 Atorvastatin Calcium (Lipitor) 40 mg DAILY@21 PO Last administered on 12/01/16 21:11; Admin Dose 40 MG; Start 11/28/16 at 21:00 Lisinopril (Zestril) 20 mg DAILY PO Last administered on 12/02/16 09:53; Admin Dose 20 MG; Start 11/30/16 at 09:00 Mirtazapine (Remeron) 15 mg HS PO Last administered on 12/01/16 21:11; Admin Dose 15 MG; Start 11/29/16 at 21:00 Diphenhydramine HCl (Benadryl) 25 mg Q4H PRN IV PRURITUS; Start 12/01/16 at 09: 00 Ondansetron HCl (Zofran Inj) 4 mg Q6H PRN IV NAUSEA AND/OR VOMITING; Start 12/01 at 09:00 Naloxone HCl (Narcan) 0.2 mg Q2M PRN IV FOR RESP RATE 8 OR LESS; Start 12/01/16 at 09:00 Hydromorphone HCl (Dilaudid) 1 mg Q3 PRN IV PAIN Last administered on 12/02/16 11:46; Admin Dose 1 MG; Start 12/02/16 at 11:35 BI VALLEJO MD December 02, 2016 15:02
--- NOTE | 2016-12-02 18:43 | CONS ---
Date/Time of Note Date/Time of Note DATE: 12/02/16 TIME: 18:37 Assessment/Plan Assessment/Plan Chief Complaint/Hosp Course IMPRESSION: 1. Preoperative evaluation prior to lower extremity vascular surgery.-negative troponin x 3. EKD 11/28 with no sig changes/single PVC. Relatively recent negative stress test and NL EF/no sig valve abnl by echo 09/2016. Now s/p RLE amputation POD#2 2. Hypertension, labile, but currently under reasonable control. 3. Dyslipidemia. 4. 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 5. Diabetes mellitus. 6. Lower extremity gangrenous changes, right lower extremity. 7. Status post left lower extremity above-knee amputation. 8. Anemia. 9.PVC-single on ecg Recc: -Continue plavix/zestril -Local wound care/abx's -Pain control Problems: Consultation Date/Type/Reason Admit Date/Time Nov 19, 2016 at 11:38 Initial Consult Date 11/28/2016 Type of Consultation: Cardiology Reason for Consultation Pre-op Referring Provider: JOAQUINA MCKEON MD Exam/Review of Systems Vital Signs Vitals Vital Signs Date Time Temp Pulse Resp B/P Pulse Ox O2 Delivery O2 Flow Rate FiO2 12/02/16 12:00 135/80 12/02/16 08:30 98.4 12/02/16 07:40 129 20 98 12/01/16 10:36 Room Air Intake and Output 12/01/16 12/01/16 12/02/16 15:00 23:00 07:00 Intake Total 700 ml 900 ml 580 ml Output Total 1250 ml 700 ml 1100 ml Balance -550 ml 200 ml -520 ml Exam Review of Systems: CONSTITUTIONAL: No fevers, chills. PULMONARY: No sob CARDIOVASCULAR: No chest pain/palpitations GASTROINTESTINAL: No nausea/vomiting. GENITOURINARY: No hematuria/dysuria. MUSCULOSKELETAL: No myagias/arthalgias. PSYCHIATRIC: The patient denies depression. NEUROLOGIC: No weakness Constitutional: alert Psych: no complaints Head: normocephalic ENMT: mucosa pink and moist Neck: jvd (9cm water), supple Respiratory: diminished breath sounds Cardiovascular: regular rate and rhythm Gastrointestinal: non-tender, soft Musculoskeletal: muscle tone Extremities: normal pulses Neurological: other (No focal deficits) Results Result Diagram: 11/30/16 0525 Results 24 hrs Laboratory Tests Test 12/01/16 21:04 12/02/16 08:22 12/02/16 12:26 12/02/16 17:18 Bedside Glucose 145 205 150 184 Medications Medications Current Medications Diagnostic Test (Pha) 1 ea 1 ea 02 XX ; Start 11/20/16 at 02:00 Cefepime HCl 50 ml @ 100 mls/hr Q12 IVPB Last administered on 12/02/16 12:27; Admin Dose 100 MLS/HR; Start 11/19/16 at 18:30 Vancomycin HCl (Vancocin) 250 ml @ 125 mls/hr Q12H IVPB Last administered on 17:20; Admin Dose 125 MLS/HR; Start 11/19/16 at 18:00 Oxycodone/ Acetaminophen (Percocet (5/ 325)) 1 tab Q4H PRN PO PAIN Last administered on 12/01/16 17:36; Admin Dose 1 TAB; Start 11/19/16 at 18:30 Gabapentin (Neurontin) 300 mg TID PO Last administered on 12/02/16 12:27; Admin Dose 300 MG; Start 11/19/16 at 21:00 Oxycodone/ Acetaminophen (Percocet (5/ 325)) 2 tab Q4H PRN PO PAIN LEVEL 6-10 Last administered on 12/02/16 11:00; Admin Dose 2 TAB; Start 11/19/16 at 21:30 Miscellaneous Information 1 ea NOTE XX ; Start 11/20/16 at 08:00 Glucose (Glutose) 15 gm Q15M PRN PO DECREASED GLUCOSE; Start 11/20/16 at 08:00 Glucose (Glutose) 22.5 gm Q15M PRN PO DECREASED GLUCOSE; Start 11/20/16 at 08: 00 Dextrose (D50w Syringe) 25 ml Q15M PRN IV DECREASED GLUCOSE; Start 11/20/16 at 08:00 Dextrose (D50w Syringe) 50 ml Q15M PRN IV DECREASED GLUCOSE; Start 11/20/16 at 08:00 Glucagon (Glucagen) 1 mg Q15M PRN IM DECREASED GLUCOSE; Start 11/20/16 at 08:00 Glucose (Glutose) 15 gm Q15M PRN BUCCAL DECREASED GLUCOSE; Start 11/20/16 at 08 :00 Hydralazine HCl (Apresoline) 10 mg Q6H PRN IV SBP>160 Last administered on 11/28 19:37; Admin Dose 10 MG; Start 11/20/16 at 16:30 Insulin Glargine (Lantus) 6 unit DAILY@20 SC Last administered on 12/01/16 21: 10; Admin Dose 6 UNIT; Start 11/20/16 at 20:00 Cholecalciferol (Vitamin D) 2,000 unit DAILY PO Last administered on 12/02/16 09:53; Admin Dose 2,000 UNIT; Start 11/21/16 at 11:30 Famotidine (Pepcid) 20 mg BID PO Last administered on 12/02/16 09:53; Admin Dose 20 MG; Start 11/21/16 at 21:00 Clopidogrel Bisulfate 75 mg 75 mg DAILY PO Last administered on 12/02/16 09:53 ; Admin Dose 75 MG; Start 11/22/16 at 12:30 Metronidazole/N/A (Flagyl 500 Mg (Pmx)/Evac Container) 50 ml @ 50 mls/hr Q8 IVPB Last administered on 12/02/16 14:24; Admin Dose 50 MLS/HR; Start 11/23/16 at 22:00 Ondansetron HCl (Zofran Inj) 4 mg Q4H PRN IV NAUSEA AND/OR VOMITING Last administered on 11/29/16 20:58; Admin Dose 4 MG; Start 11/24/16 at 14:30 Metoclopramide HCl (Reglan) 5 mg Q4H PRN IV VOMITTING Last administered on 11/28 13:24; Admin Dose 5 MG; Start 11/26/16 at 18:00 Docusate Sodium (Colace) 100 mg BID PO Last administered on 12/02/16 09:53; Admin Dose 100 MG; Start 11/26/16 at 21:00 Polyethylene Glycol (Miralax) 17 gm DAILY PRN PO CONSTIPATION Last administered on 11/28/16 16:47; Admin Dose 17 GM; Start 11/27/16 at 17:00 Atorvastatin Calcium (Lipitor) 40 mg DAILY@21 PO Last administered on 12/01/16 21:11; Admin Dose 40 MG; Start 11/28/16 at 21:00 Lisinopril (Zestril) 20 mg DAILY PO Last administered on 12/02/16 09:53; Admin Dose 20 MG; Start 11/30/16 at 09:00 Mirtazapine (Remeron) 15 mg HS PO Last administered on 12/01/16 21:11; Admin Dose 15 MG; Start 11/29/16 at 21:00 Diphenhydramine HCl (Benadryl) 25 mg Q4H PRN IV PRURITUS; Start 12/01/16 at 09: 00 Ondansetron HCl (Zofran Inj) 4 mg Q6H PRN IV NAUSEA AND/OR VOMITING; Start 12/01 at 09:00 Naloxone HCl (Narcan) 0.2 mg Q2M PRN IV FOR RESP RATE 8 OR LESS; Start 12/01/16 at 09:00 Hydromorphone HCl (Dilaudid) 1 mg Q3 PRN IV PAIN Last administered on 12/02/16 17:20; Admin Dose 1 MG; Start 12/02/16 at 11:35 KAYLEIGH NORIEGA December 02, 2016 18:43
[2016-12-02] MEDS: INSULIN GLARGINE [LANtus] 3 ML PEN SC SCH (20:19)
[2016-12-02] MEDS: MIRTAZAPINE 15 MG TAB PO SCH (20:23)
[2016-12-02] MEDS: ATORVASTATIN 40 MG TAB PO SCH (20:23)
[2016-12-02 20:35] VITALS: BP 175/76; RESP 19
[2016-12-02 22:00] VITALS: BP 144/78; PULSE 82; RESP 18
[2016-12-02] MEDS ORDERED: HYDROmorphONE 1 MG/ML SYG IV STA (22:23)
[2016-12-03] MEDS ORDERED: CYCLOBENZAPRINE 10 MG TAB PO ONE (00:30)
[2016-12-03] MEDS: ACCU-CHEK XX SCH (02:00)
[2016-12-03] MEDS: HYDROmorphONE 2 MG/ML SYG IV PRN ×5 (04:49→22:18)
[2016-12-03 05:01] LABS: ADD SCAN DIFF NO
[2016-12-03 05:15] LABS: BASOPHILS % 0.3 % (0.0-2.0); EOSINOPHILS % 0.3 % (0.0-7.0); HEMATOCRIT 31.5 % (37.0-47.0); HEMOGLOBIN 10.5 g/dl (12.0-16.0); LYMPHOCYTES # 1.6 10^3/ul (0.8-2.9); MEAN CORPUSCULAR HGB CONC 33.3 g/dl (32.0-37.0); MEAN PLATELET VOLUME 9.5 fl (7.4-10.4); MONOCYTE # 1.2 10^3/ul (0.3-0.9); MONOCYTES % 8.2 % (0.0-11.0); NEUTROPHIL # 11.6 10^3/ul (1.6-7.5); NEUTROPHILS % 79.4 % (39.0-77.0); PLATELET COUNT 510 10^3/UL (140-415); RED CELL DISTRIBUTION WIDTH 13.2 % (11.5-14.5); WHITE BLOOD COUNT 14.6 10^3/ul (4.8-10.8)
[2016-12-03 05:24] LABS: POTASSIUM 3.1 mmol/L (3.5-5.1)
[2016-12-03 05:27] LABS: CREATININE 0.34 mg/dl (0.44-1.00)
[2016-12-03 05:28] LABS: CALCIUM 8.7 mg/dl (8.4-10.2)
[2016-12-03] MEDS: metroNIDAZOLE 500 MG/NS (PMX) 250 MG in EVAC CONTAINER 1 BOTTLE IVPB SCH (05:31)
[2016-12-03] MEDS: VANCOMYCIN 1 GM in NS 250 ML IVPB SCH (06:34)
[2016-12-03 08:15] VITALS: BP 113/64; RESP 18
[2016-12-03] MEDS: INSULIN ASPART [NOVOLOG] 3 ML PEN SC SCH ×7 (09:19→21:00)
[2016-12-03] MEDS: CHOLECALCIFEROL 2,000 UNIT CAP PO SCH (09:21)
[2016-12-03] MEDS: CEFEPIME 1GM/50 ML (PMX) 50 ML IVPB SCH (09:21)
[2016-12-03] MEDS: FAMOTIDINE 20 MG TAB PO SCH ×2 (09:21→20:29)
[2016-12-03] MEDS: GABAPENTIN 300 MG CAP PO SCH ×3 (09:21→20:29)
[2016-12-03] MEDS: DOCUSATE SODIUM 100 MG CAP PO SCH ×2 (09:21→20:29)
[2016-12-03] MEDS: CLOPIDOGREL 75 MG TAB PO SCH (09:21)
[2016-12-03] MEDS: LISINOPRIL 20 MG TAB PO SCH (09:21)
[2016-12-03] MEDS: OXYCODONE/ACETAMINOPHEN (5/325) TAB PO PRN ×3 (10:35→20:39)
--- NOTE | 2016-12-03 12:15 | CONS ---
Date/Time of Note Date/Time of Note DATE: 12/03/16 TIME: 12:13 Assessment/Plan Assessment/Plan Chief Complaint/Hosp Course SUBJECTIVE: No events overnight. The patient is sleeping, nad, T max 99.8. ANTIMICROBIALS: She is on: 1. Flagyl. 2. Cefepime. 3. Vancomycin. PHYSICAL EXAMINATION: GENERAL: Well-developed, middle-aged woman who is awake, in no distress. HEENT: Head atraumatic, normocephalic. Sclerae anicteric. Buccal mucosa pink. NECK: Supple. CHEST: Rise symmetrical. Breath sounds clear. HEART: S1, S2. ABDOMEN: Soft, bowel tones present. EXTREMITIES: With right lower extremity dressing intact. ASSESSMENT: 1. Severe peripheral arterial disease status post right below-knee amputation, postop day #2. 2. History of Clostridium difficile colitis. 3. Diabetes. 4. History of left above-knee amputation. PLAN: The patient remains stable, will dc abx and observe, will check cxr in am and griffin cx prn. DW Dr Mckeon Problems: Consultation Date/Type/Reason Admit Date/Time Nov 19, 2016 at 11:38 Initial Consult Date Type of Consultation: id Referring Provider: JOAQUINA MCKEON MD Exam/Review of Systems Vital Signs Vitals Vital Signs Date Time Temp Pulse Resp B/P Pulse Ox O2 Delivery O2 Flow Rate FiO2 12/03/16 08:15 98.2 95 18 113/64 97 12/02/16 22:00 Room Air Intake and Output 12/02/16 12/02/16 12/03/16 15:00 23:00 07:00 Intake Total 50 ml 770 ml 950 ml Output Total 1300 ml 950 ml Balance 50 ml -530 ml 0 ml Results Result Diagram: 12/03/16 0440 12/03/16 0440 Results 24 hrs Laboratory Tests Test 12/02/16 12:26 12/02/16 17:18 12/02/16 20:17 12/02/16 21:37 Bedside Glucose 150 184 152 161 Test 12/03/16 04:40 12/03/16 09:06 White Blood Count 14.6 #H Red Blood Count 3.50 L Hemoglobin 10.5 L Hematocrit 31.5 L Mean Corpuscular Volume 90.0 Mean Corpuscular Hemoglobin 30.0 Mean Corpuscular Hemoglobin Concent 33.3 Red Cell Distribution Width 13.2 Platelet Count 510 H Mean Platelet Volume 9.5 Neutrophils % 79.4 H Lymphocytes % 11.0 L Monocytes % 8.2 Eosinophils % 0.3 Basophils % 0.3 Nucleated Red Blood Cells % 0.0 Neutrophils # 11.6 H Lymphocytes # 1.6 Monocytes # 1.2 H Eosinophils # 0.0 Basophils # 0.0 Nucleated Red Blood Cells # 0.0 Sodium Level 131 L Potassium Level 3.1 L Chloride Level 92 L Carbon Dioxide Level 28 Anion Gap 14 Blood Urea Nitrogen 8 Creatinine 0.34 L Glucose Level 220 Calcium Level 8.7 Bedside Glucose 180 Medications Medications Current Medications Diagnostic Test (Pha) 1 ea 1 ea 02 XX ; Start 11/20/16 at 02:00 Cefepime HCl 50 ml @ 100 mls/hr Q12 IVPB Last administered on 12/03/16 09:21; Admin Dose 100 MLS/HR; Start 11/19/16 at 18:30 Vancomycin HCl (Vancocin) 250 ml @ 125 mls/hr Q12H IVPB Last administered on 06:34; Admin Dose 125 MLS/HR; Start 11/19/16 at 18:00 Oxycodone/ Acetaminophen (Percocet (5/ 325)) 1 tab Q4H PRN PO PAIN Last administered on 12/01/16 17:36; Admin Dose 1 TAB; Start 11/19/16 at 18:30 Gabapentin (Neurontin) 300 mg TID PO Last administered on 12/03/16 09:21; Admin Dose 300 MG; Start 11/19/16 at 21:00 Oxycodone/ Acetaminophen (Percocet (5/ 325)) 2 tab Q4H PRN PO PAIN LEVEL 6-10 Last administered on 12/03/16 10:35; Admin Dose 2 TAB; Start 11/19/16 at 21:30 Miscellaneous Information 1 ea NOTE XX ; Start 11/20/16 at 08:00 Glucose (Glutose) 15 gm Q15M PRN PO DECREASED GLUCOSE; Start 11/20/16 at 08:00 Glucose (Glutose) 22.5 gm Q15M PRN PO DECREASED GLUCOSE; Start 11/20/16 at 08: 00 Dextrose (D50w Syringe) 25 ml Q15M PRN IV DECREASED GLUCOSE; Start 11/20/16 at 08:00 Dextrose (D50w Syringe) 50 ml Q15M PRN IV DECREASED GLUCOSE; Start 11/20/16 at 08:00 Glucagon (Glucagen) 1 mg Q15M PRN IM DECREASED GLUCOSE; Start 11/20/16 at 08:00 Glucose (Glutose) 15 gm Q15M PRN BUCCAL DECREASED GLUCOSE; Start 11/20/16 at 08 :00 Hydralazine HCl (Apresoline) 10 mg Q6H PRN IV SBP>160 Last administered on 11/28 19:37; Admin Dose 10 MG; Start 11/20/16 at 16:30 Insulin Glargine (Lantus) 6 unit DAILY@20 SC Last administered on 12/02/16 20: 19; Admin Dose 6 UNIT; Start 11/20/16 at 20:00 Cholecalciferol (Vitamin D) 2,000 unit DAILY PO Last administered on 12/03/16 09:21; Admin Dose 2,000 UNIT; Start 11/21/16 at 11:30 Famotidine (Pepcid) 20 mg BID PO Last administered on 12/03/16 09:21; Admin Dose 20 MG; Start 11/21/16 at 21:00 Clopidogrel Bisulfate 75 mg 75 mg DAILY PO Last administered on 12/03/16 09:21 ; Admin Dose 75 MG; Start 11/22/16 at 12:30 Metronidazole/N/A (Flagyl 500 Mg (Pmx)/Evac Container) 50 ml @ 50 mls/hr Q8 IVPB Last administered on 12/03/16 05:31; Admin Dose 50 MLS/HR; Start 11/23/16 at 22:00 Ondansetron HCl (Zofran Inj) 4 mg Q4H PRN IV NAUSEA AND/OR VOMITING Last administered on 11/29/16 20:58; Admin Dose 4 MG; Start 11/24/16 at 14:30 Metoclopramide HCl (Reglan) 5 mg Q4H PRN IV VOMITTING Last administered on 11/28 13:24; Admin Dose 5 MG; Start 11/26/16 at 18:00 Docusate Sodium (Colace) 100 mg BID PO Last administered on 12/03/16 09:21; Admin Dose 100 MG; Start 11/26/16 at 21:00 Polyethylene Glycol (Miralax) 17 gm DAILY PRN PO CONSTIPATION Last administered on 11/28/16 16:47; Admin Dose 17 GM; Start 11/27/16 at 17:00 Atorvastatin Calcium (Lipitor) 40 mg DAILY@21 PO Last administered on 12/02/16 20:23; Admin Dose 40 MG; Start 11/28/16 at 21:00 Lisinopril (Zestril) 20 mg DAILY PO Last administered on 12/03/16 09:21; Admin Dose 20 MG; Start 11/30/16 at 09:00 Mirtazapine (Remeron) 15 mg HS PO Last administered on 12/02/16 20:23; Admin Dose 15 MG; Start 11/29/16 at 21:00 Diphenhydramine HCl (Benadryl) 25 mg Q4H PRN IV PRURITUS; Start 12/01/16 at 09: 00 Ondansetron HCl (Zofran Inj) 4 mg Q6H PRN IV NAUSEA AND/OR VOMITING; Start 12/01 at 09:00 Naloxone HCl (Narcan) 0.2 mg Q2M PRN IV FOR RESP RATE 8 OR LESS; Start 12/01/16 at 09:00 Hydromorphone HCl (Dilaudid) 1.5 mg Q3 PRN IV PAIN Last administered on 09:15; Admin Dose 1.5 MG; Start 12/02/16 at 22:30 Miscellaneous Information (*Rx Drug Level Order Reminder*) VANCOMYCIN TROUGH 5/ 5 AT 1700 ONCE ONCE XX ; Start 12/04/16 at 17:00; Stop 12/04/16 at 17:01 KATHERYN RINALDI NP December 03, 2016 12:15
--- NOTE | 2016-12-03 14:08 | CONS ---
Date/Time of Note Date/Time of Note DATE: 12/03/16 TIME: 14:05 Assessment/Plan Assessment/Plan Chief Complaint/Hosp Course IMPRESSION: 1. Preoperative evaluation prior to lower extremity vascular surgery.-negative troponin x 3. EKD 11/28 with no sig changes/single PVC. Relatively recent negative stress test and NL EF/no sig valve abnl by echo 09/2016. Now s/p RLE amputation POD#3 2. Hypertension, labile, but currently under reasonable control. ? component of pain 3. Dyslipidemia. 4. Peripheral arterial disease, status post left lower extremity above- knee amputation and right lower extremity with gangrenous changes, status post prior SURGICAL PATHOLOGIST. 5. Diabetes mellitus. 6. Lower extremity gangrenous changes, right lower extremity. 7. Status post left lower extremity above-knee amputation. 8. Anemia. 9.PVC-single on ecg Recc: -Continue plavix/zestril -Local wound care/abx's -Pain control -Follow volume status closely Problems: Consultation Date/Type/Reason Admit Date/Time Nov 19, 2016 at 11:38 Initial Consult Date 11/28/2016 Type of Consultation: Cardiology Reason for Consultation Pre-op/HTN Referring Provider: JOAQUINA MCKEON MD Exam/Review of Systems Vital Signs Vitals Vital Signs Date Time Temp Pulse Resp B/P Pulse Ox O2 Delivery O2 Flow Rate FiO2 12/03/16 08:15 98.2 95 18 113/64 97 12/02/16 22:00 Room Air Intake and Output 12/02/16 12/02/16 12/03/16 15:00 23:00 07:00 Intake Total 50 ml 770 ml 950 ml Output Total 1300 ml 950 ml Balance 50 ml -530 ml 0 ml Exam Review of Systems: CONSTITUTIONAL: No fevers, chills. PULMONARY: No sob CARDIOVASCULAR: No chest pain/palpitations GASTROINTESTINAL: No nausea/vomiting. GENITOURINARY: No hematuria/dysuria. MUSCULOSKELETAL: s/p LE amputation PSYCHIATRIC: The patient denies depression. NEUROLOGIC: lethargic Constitutional: other (sleeping) Psych: no complaints Head: normocephalic ENMT: mucosa pink and moist Neck: jvd (9 cm water), supple Respiratory: diminished breath sounds (at bases/B) Cardiovascular: regular rate and rhythm Gastrointestinal: non-tender, soft Musculoskeletal: other (s/p now bilateral LE amputation) Extremities: edema (none) Neurological: other (No focal deficits) Results Result Diagram: 12/03/16 0440 12/03/16 0440 Results 24 hrs Laboratory Tests Test 12/02/16 17:18 12/02/16 20:17 12/02/16 21:37 12/03/16 04:40 Bedside Glucose 184 152 161 White Blood Count 14.6 #H Red Blood Count 3.50 L Hemoglobin 10.5 L Hematocrit 31.5 L Mean Corpuscular Volume 90.0 Mean Corpuscular Hemoglobin 30.0 Mean Corpuscular Hemoglobin Concent 33.3 Red Cell Distribution Width 13.2 Platelet Count 510 H Mean Platelet Volume 9.5 Neutrophils % 79.4 H Lymphocytes % 11.0 L Monocytes % 8.2 Eosinophils % 0.3 Basophils % 0.3 Nucleated Red Blood Cells % 0.0 Neutrophils # 11.6 H Lymphocytes # 1.6 Monocytes # 1.2 H Eosinophils # 0.0 Basophils # 0.0 Nucleated Red Blood Cells # 0.0 Sodium Level 131 L Potassium Level 3.1 L Chloride Level 92 L Carbon Dioxide Level 28 Anion Gap 14 Blood Urea Nitrogen 8 Creatinine 0.34 L Glucose Level 220 Calcium Level 8.7 Test 12/03/16 09:06 12/03/16 12:47 Bedside Glucose 180 182 Medications Medications Current Medications Diagnostic Test (Pha) (Accu-Chek) 1 ea 02 XX ; Start 11/20/16 at 02:00 Oxycodone/ Acetaminophen (Percocet (5/ 325)) 1 tab Q4H PRN PO PAIN Last administered on 12/01/16 17:36; Admin Dose 1 TAB; Start 11/19/16 at 18:30 Gabapentin (Neurontin) 300 mg TID PO Last administered on 12/03/16 13:15; Admin Dose 300 MG; Start 11/19/16 at 21:00 Oxycodone/ Acetaminophen (Percocet (5/ 325)) 2 tab Q4H PRN PO PAIN LEVEL 6-10 Last administered on 12/03/16 10:35; Admin Dose 2 TAB; Start 11/19/16 at 21:30 Miscellaneous Information 1 ea NOTE XX ; Start 11/20/16 at 08:00 Glucose (Glutose) 15 gm Q15M PRN PO DECREASED GLUCOSE; Start 11/20/16 at 08:00 Glucose (Glutose) 22.5 gm Q15M PRN PO DECREASED GLUCOSE; Start 11/20/16 at 08: 00 Dextrose (D50w Syringe) 25 ml Q15M PRN IV DECREASED GLUCOSE; Start 11/20/16 at 08:00 Dextrose (D50w Syringe) 50 ml Q15M PRN IV DECREASED GLUCOSE; Start 11/20/16 at 08:00 Glucagon (Glucagen) 1 mg Q15M PRN IM DECREASED GLUCOSE; Start 11/20/16 at 08:00 Glucose (Glutose) 15 gm Q15M PRN BUCCAL DECREASED GLUCOSE; Start 11/20/16 at 08 :00 Hydralazine HCl (Apresoline) 10 mg Q6H PRN IV SBP>160 Last administered on 11/28 19:37; Admin Dose 10 MG; Start 11/20/16 at 16:30 Insulin Glargine (Lantus) 6 unit DAILY@20 SC Last administered on 12/02/16 20: 19; Admin Dose 6 UNIT; Start 11/20/16 at 20:00 Cholecalciferol (Vitamin D) 2,000 unit DAILY PO Last administered on 12/03/16 09:21; Admin Dose 2,000 UNIT; Start 11/21/16 at 11:30 Famotidine (Pepcid) 20 mg BID PO Last administered on 12/03/16 09:21; Admin Dose 20 MG; Start 11/21/16 at 21:00 Clopidogrel Bisulfate (plaVIX) 75 mg DAILY PO Last administered on 12/03/16 09: 21; Admin Dose 75 MG; Start 11/22/16 at 12:30 Ondansetron HCl (Zofran Inj) 4 mg Q4H PRN IV NAUSEA AND/OR VOMITING Last administered on 11/29/16 20:58; Admin Dose 4 MG; Start 11/24/16 at 14:30 Metoclopramide HCl (Reglan) 5 mg Q4H PRN IV VOMITTING Last administered on 11/28 13:24; Admin Dose 5 MG; Start 11/26/16 at 18:00 Docusate Sodium (Colace) 100 mg BID PO Last administered on 12/03/16 09:21; Admin Dose 100 MG; Start 11/26/16 at 21:00 Polyethylene Glycol (Miralax) 17 gm DAILY PRN PO CONSTIPATION Last administered on 11/28/16 16:47; Admin Dose 17 GM; Start 11/27/16 at 17:00 Atorvastatin Calcium (Lipitor) 40 mg DAILY@21 PO Last administered on 12/02/16 20:23; Admin Dose 40 MG; Start 11/28/16 at 21:00 Lisinopril (Zestril) 20 mg DAILY PO Last administered on 12/03/16 09:21; Admin Dose 20 MG; Start 11/30/16 at 09:00 Mirtazapine (Remeron) 15 mg HS PO Last administered on 12/02/16 20:23; Admin Dose 15 MG; Start 11/29/16 at 21:00 Diphenhydramine HCl (Benadryl) 25 mg Q4H PRN IV PRURITUS; Start 12/01/16 at 09: 00 Ondansetron HCl (Zofran Inj) 4 mg Q6H PRN IV NAUSEA AND/OR VOMITING; Start 12/01 at 09:00 Naloxone HCl (Narcan) 0.2 mg Q2M PRN IV FOR RESP RATE 8 OR LESS; Start 12/01/16 at 09:00 Hydromorphone HCl (Dilaudid) 1.5 mg Q3 PRN IV PAIN Last administered on 09:15; Admin Dose 1.5 MG; Start 12/02/16 at 22:30 KAYLEIGH NORIEGA December 03, 2016 14:08
--- NOTE | 2016-12-03 15:40 | RADRPT ---
PROCEDURE: XR Chest. CLINICAL INDICATION: Shortness of breath. TECHNIQUE: Single frontal view. COMPARISON: 11/19/2016. FINDINGS: The lungs are clear. The heart size is normal. There is calcification in the aorta consistent with atherosclerosis. There is no pleural effusion. There is no pneumothorax. IMPRESSION: 1. Atherosclerosis. 2. Clear lungs. 3. No change from 11/19/2016. RPTAT: QQ .Chidi Mcnulty MD, MD Date Time Electronically viewed and signed by .Chidi Mcnulty MD, MD on 12/03/2016 15:39 .R/
--- NOTE | 2016-12-03 16:19 | PN ---
Date/Time of Note Date/Time of Note DATE: 12/03/16 TIME: 16:16 Assessment/Plan VTE Prophylaxis VTE Prophylaxis Intervention: other Lines/Catheters IV Catheter Type (from Nrs): Saline Lock Urinary Cath still in place: Yes Reason Cath still needed: other (indicate) Assessment/Plan Assessment/Plan 1. Right lower extremity gangrenous wound with infection of 4th and 5th toe. The patient is S/P incision and drainage of the 4th and 5th toe with amputation of the right third toe by vascular surgery on 11/20/2016. s/p right BKA on 2016, follow up with surgery and physical therapy 2. Type 2 diabetes mellitus. Hemoglobin A1c 6.5. on insulins 3. Essential hypertension. controlled 4. Peripheral vascular disease. on plavix 5. Diabetic neuropathy. The patient will be continued on gabapentin. 6. Normocytic normochromic anemia. 7. Vitamin D deficiency. Continue vitamin D supplements. 8. s/p Left lower extremity amputation Subjective 24 Hr Interval Summary Free Text/Dictation pain is better controlled Exam/Review of Systems Vital Signs Vitals Vital Signs Date Time Temp Pulse Resp B/P Pulse Ox O2 Delivery O2 Flow Rate FiO2 12/03/16 08:15 98.2 95 18 113/64 97 12/02/16 22:00 Room Air Intake and Output 12/02/16 12/02/16 12/03/16 15:00 23:00 07:00 Intake Total 50 ml 770 ml 950 ml Output Total 1300 ml 950 ml Balance 50 ml -530 ml 0 ml Exam Constitutional: alert, oriented, well developed Psych: nl mood/affect, no complaints Head: atraumatic, normocephalic Eyes: EOMI, PERRL, nl conjunctiva, nl lids ENMT: nl external ears & nose, nl lips & teeth, nl nasal mucosa & septum Neck: non-tender, supple Respiratory: clear to auscultation, normal air movement, No congested cough, No crackles/rales, No diminished breath sounds, No intercostal retraction, No labored breathing, No other, No respirations, No tactile fremitus, No wheezing Cardiovascular: nl pulses, regular rate and rhythm, No S3, No S4, No bruits, No diastolic murmur, No edema, No gallop, No irregular rhythm, No jugular venous distention (JVD), No murmurs/extra sounds, No other, No rub, No systolic murmur Gastrointestinal: nl liver, spleen, non-tender, soft, No ascites, No bowel sounds, No distended, No firm, No hepatomegaly, No mass , No other, No rebound or guarding, No splenomegaly, No surgical scars, No tender Musculoskeletal: other (s/p AKA on left, BKA on right) Neurological: 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 II-XII intact, nl mental status, nl speech, nl strength Results Result Diagram: 12/03/1643912/03/16 044 Results 24 hrs Laboratory Tests Test 12/02/16 17:18 12/02/16 20:17 12/02/16 21:37 12/03/16 04:40 Bedside Glucose 184 152 161 White Blood Count 14.6 #H Red Blood Count 3.50 L Hemoglobin 10.5 L Hematocrit 31.5 L Mean Corpuscular Volume 90.0 Mean Corpuscular Hemoglobin 30.0 Mean Corpuscular Hemoglobin Concent 33.3 Red Cell Distribution Width 13.2 Platelet Count 510 H Mean Platelet Volume 9.5 Neutrophils % 79.4 H Lymphocytes % 11.0 L Monocytes % 8.2 Eosinophils % 0.3 Basophils % 0.3 Nucleated Red Blood Cells % 0.0 Neutrophils # 11.6 H Lymphocytes # 1.6 Monocytes # 1.2 H Eosinophils # 0.0 Basophils # 0.0 Nucleated Red Blood Cells # 0.0 Sodium Level 131 L Potassium Level 3.1 L Chloride Level 92 L Carbon Dioxide Level 28 Anion Gap 14 Blood Urea Nitrogen 8 Creatinine 0.34 L Glucose Level 220 Calcium Level 8.7 Test 12/03/16 09:06 12/03/16 12:47 Bedside Glucose 180 182 Medications Medications Current Medications Diagnostic Test (Pha) (Accu-Chek) 1 ea 02 XX ; Start 11/20/16 at 02:00 Oxycodone/ Acetaminophen (Percocet (5/ 325)) 1 tab Q4H PRN PO PAIN Last administered on 12/01/16 17:36; Admin Dose 1 TAB; Start 11/19/16 at 18:30 Gabapentin (Neurontin) 300 mg TID PO Last administered on 12/03/16 13:15; Admin Dose 300 MG; Start 11/19/16 at 21:00 Oxycodone/ Acetaminophen (Percocet (5/ 325)) 2 tab Q4H PRN PO PAIN LEVEL 6-10 Last administered on 12/03/16 10:35; Admin Dose 2 TAB; Start 11/19/16 at 21:30 Miscellaneous Information 1 ea NOTE XX ; Start 11/20/16 at 08:00 Glucose (Glutose) 15 gm Q15M PRN PO DECREASED GLUCOSE; Start 11/20/16 at 08:00 Glucose (Glutose) 22.5 gm Q15M PRN PO DECREASED GLUCOSE; Start 11/20/16 at 08: 00 Dextrose (D50w Syringe) 25 ml Q15M PRN IV DECREASED GLUCOSE; Start 11/20/16 at 08:00 Dextrose (D50w Syringe) 50 ml Q15M PRN IV DECREASED GLUCOSE; Start 11/20/16 at 08:00 Glucagon (Glucagen) 1 mg Q15M PRN IM DECREASED GLUCOSE; Start 11/20/16 at 08:00 Glucose (Glutose) 15 gm Q15M PRN BUCCAL DECREASED GLUCOSE; Start 11/20/16 at 08 :00 Hydralazine HCl (Apresoline) 10 mg Q6H PRN IV SBP>160 Last administered on 11/28 19:37; Admin Dose 10 MG; Start 11/20/16 at 16:30 Insulin Glargine (Lantus) 6 unit DAILY@20 SC Last administered on 12/02/16 20: 19; Admin Dose 6 UNIT; Start 11/20/16 at 20:00 Cholecalciferol (Vitamin D) 2,000 unit DAILY PO Last administered on 12/03/16 09:21; Admin Dose 2,000 UNIT; Start 11/21/16 at 11:30 Famotidine (Pepcid) 20 mg BID PO Last administered on 12/03/16 09:21; Admin Dose 20 MG; Start 11/21/16 at 21:00 Clopidogrel Bisulfate (plaVIX) 75 mg DAILY PO Last administered on 12/03/16 09: 21; Admin Dose 75 MG; Start 11/22/16 at 12:30 Ondansetron HCl (Zofran Inj) 4 mg Q4H PRN IV NAUSEA AND/OR VOMITING Last administered on 11/29/16 20:58; Admin Dose 4 MG; Start 11/24/16 at 14:30 Metoclopramide HCl (Reglan) 5 mg Q4H PRN IV VOMITTING Last administered on 11/28 13:24; Admin Dose 5 MG; Start 11/26/16 at 18:00 Docusate Sodium (Colace) 100 mg BID PO Last administered on 12/03/16 09:21; Admin Dose 100 MG; Start 11/26/16 at 21:00 Polyethylene Glycol (Miralax) 17 gm DAILY PRN PO CONSTIPATION Last administered on 11/28/16 16:47; Admin Dose 17 GM; Start 11/27/16 at 17:00 Atorvastatin Calcium (Lipitor) 40 mg DAILY@21 PO Last administered on 12/02/16 20:23; Admin Dose 40 MG; Start 11/28/16 at 21:00 Lisinopril (Zestril) 20 mg DAILY PO Last administered on 12/03/16 09:21; Admin Dose 20 MG; Start 11/30/16 at 09:00 Mirtazapine (Remeron) 15 mg HS PO Last administered on 12/02/16 20:23; Admin Dose 15 MG; Start 11/29/16 at 21:00 Diphenhydramine HCl (Benadryl) 25 mg Q4H PRN IV PRURITUS; Start 12/01/16 at 09: 00 Ondansetron HCl (Zofran Inj) 4 mg Q6H PRN IV NAUSEA AND/OR VOMITING; Start 12/01 at 09:00 Naloxone HCl (Narcan) 0.2 mg Q2M PRN IV FOR RESP RATE 8 OR LESS; Start 12/01/16 at 09:00 Hydromorphone HCl (Dilaudid) 1.5 mg Q3 PRN IV PAIN Last administered on 15:00; Admin Dose 1.5 MG; Start 12/02/16 at 22:30 BI VALLEJO MD December 03, 2016 16:19
[2016-12-03] MEDS: ATORVASTATIN 40 MG TAB PO SCH (20:29)
[2016-12-03] MEDS: MIRTAZAPINE 15 MG TAB PO SCH (20:29)
[2016-12-03] MEDS: INSULIN GLARGINE [LANtus] 3 ML PEN SC SCH (20:31)
[2016-12-03 21:05] VITALS: BP 119/64; RESP 18
[2016-12-03] MEDS: POTASSIUM CHLORIDE 250 ML IVPB SCH (22:10)
--- NOTE | 2016-12-03 22:43 | PN ---
Date/Time of Note Date/Time of Note DATE: 12/03/16 TIME: 22:43 Assessment/Plan Lines/Catheters IV Catheter Type (from Nrsg): Saline Lock Vee in Place (from Nrsg): Yes Assessment/Plan Chief Complaint/Hosp Course -Bilateral lower extremity atherosclerosis with gangrene: S/P BKA -Patient is cleared from Vascular surgery standpoint for discharge planning -Continue with Material Damage Appraiser and PT/OT OOB -Optimize vascular status (BP meds, diet, nutrition, exercise, sugar control, antiplatelets). 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 Please call with any questions. Problems: Subjective 24 Hr Interval Summary SOME INCISIONAL PAIN Exam/Review of Systems Vital Signs Vitals Vital Signs Date Time Temp Pulse Resp B/P Pulse Ox O2 Delivery O2 Flow Rate FiO2 12/06/16 20:14 98.8 83 18 110/60 97 12/04/16 07:44 Room Air Intake and Output 12/05/16 12/05/16 12/06/16 15:00 23:00 07:00 Intake Total 840 ml 340 ml Output Total 900 ml 1400 ml Balance -60 ml -1060 ml Exam Free Text/Dictation GENERAL: Alert and oriented x3. PULMONARY: Clear to auscultation bilaterally. CARDIOVASCULAR: S1, S2 present. ABDOMEN: Soft, nontender, nondistended. Bowel sounds positive. EXTREMITIES: Right lower extremity: Palpable femoral pulse, Motor, sensory intact. Capillary refill 2-3 seconds at the BKA.stump. incision clean and dry, some incisional tenderness Results Result Diagram: 12/04/160 12/04/16 0440 JOAQUINA MCKEON MD December 03, 2016 22:43 JOAQUINA MCKEON MD December 03, 2016 22:43
[2016-12-04] MEDS: OXYCODONE/ACETAMINOPHEN (5/325) TAB PO PRN ×2 (00:52→17:29)
[2016-12-04] MEDS: ACCU-CHEK XX SCH (02:00)
[2016-12-04] MEDS: HYDROmorphONE 2 MG/ML SYG IV PRN ×6 (02:54→20:59)
[2016-12-04 02:59] LABS: ADD UMIC YES; URINE BILIRUBIN (Dip) NEGATIVE (NEGATIVE); URINE BLOOD (Dip) TRACE (NEGATIVE); URINE COLOR LT. YELLOW (YELLOW); URINE GLUCOSE (Dip) NEGATIVE (NEGATIVE); URINE KETONES (Dip) NEGATIVE (NEGATIVE); URINE LEUKOCYTE ESTERASE (Dip) 2+ (NEGATIVE); URINE NITRITE (Dip) NEGATIVE (NEGATIVE); URINE TOTAL PROTEIN (Dip) NEGATIVE (NEGATIVE); URINE UROBILINOGEN (Dip) 0.2 E.U./dL (0.1-1.0)
[2016-12-04] MEDS: POTASSIUM CHLORIDE 250 ML IVPB SCH (02:59)
[2016-12-04 03:49] LABS: BACTERIA,URINE OCCASIONAL; SQUAMOUS EPITHELIAL CELL,UR FEW; URINE RBCS 0-2 /HPF (0)
[2016-12-04 05:21] LABS: ADD SCAN DIFF NO
[2016-12-04 05:32] LABS: BASOPHILS % 0.1 % (0.0-2.0); EOSINOPHILS # 0.2 10^3/ul (0.0-0.5); EOSINOPHILS % 2.7 % (0.0-7.0); HEMATOCRIT 30.8 % (37.0-47.0); HEMOGLOBIN 10.1 g/dl (12.0-16.0); LYMPHOCYTES # 1.8 10^3/ul (0.8-2.9); LYMPHOCYTES % 21.9 % (15.0-51.0); MEAN CORPUSCULAR HEMOGLOBIN 30.4 pg (29.0-33.0); MEAN CORPUSCULAR HGB CONC 32.8 g/dl (32.0-37.0); MEAN CORPUSCULAR VOLUME 92.8 fl (82.0-101.0); MEAN PLATELET VOLUME 9.6 fl (7.4-10.4); MONOCYTE # 0.8 10^3/ul (0.3-0.9); MONOCYTES % 9.3 % (0.0-11.0); NEUTROPHIL # 5.5 10^3/ul (1.6-7.5); NEUTROPHILS % 65.3 % (39.0-77.0); PLATELET COUNT 522 10^3/UL (140-415); RED BLOOD COUNT 3.32 10^6/ul (4.20-5.40); RED CELL DISTRIBUTION WIDTH 13.4 % (11.5-14.5); WHITE BLOOD COUNT 8.4 10^3/ul (4.8-10.8)
[2016-12-04 05:51] LABS: CALCIUM 8.9 mg/dl (8.4-10.2); CREATININE 0.39 mg/dl (0.44-1.00); POTASSIUM 4.9 mmol/L (3.5-5.1)
[2016-12-04 07:44] VITALS: BP 113/56; PULSE 91; RESP 12
[2016-12-04] MEDS: INSULIN ASPART [NOVOLOG] 3 ML PEN SC SCH ×7 (08:00→20:48)
[2016-12-04] MEDS: CLOPIDOGREL 75 MG TAB PO SCH (08:47)
[2016-12-04] MEDS: FAMOTIDINE 20 MG TAB PO SCH ×2 (08:47→20:44)
[2016-12-04] MEDS: DOCUSATE SODIUM 100 MG CAP PO SCH ×2 (08:47→20:44)
[2016-12-04] MEDS: CHOLECALCIFEROL 2,000 UNIT CAP PO SCH (08:47)
[2016-12-04] MEDS: GABAPENTIN 300 MG CAP PO SCH ×3 (08:47→20:44)
[2016-12-04] MEDS: LISINOPRIL 20 MG TAB PO SCH (08:48)
--- NOTE | 2016-12-04 13:37 | CONS ---
Date/Time of Note Date/Time of Note DATE: 12/04/16 TIME: 13:36 Assessment/Plan Assessment/Plan Chief Complaint/Hosp Course SUBJECTIVE: No events overnight. The patient is sleeping, nad, no fevers PHYSICAL EXAMINATION: GENERAL: Well-developed, middle-aged woman who is awake, in no distress. HEENT: Head atraumatic, normocephalic. Sclerae anicteric. Buccal mucosa pink. NECK: Supple. CHEST: Rise symmetrical. Breath sounds clear. HEART: S1, S2. ABDOMEN: Soft, bowel tones present. EXTREMITIES: With right lower extremity dressing intact. ASSESSMENT: 1. Severe peripheral arterial disease status post right below-knee amputation 2. History of Clostridium difficile colitis. 3. Diabetes. 4. History of left above-knee amputation. PLAN: The patient remains stable, off abx, cxr wnl. DW staff Problems: Consultation Date/Type/Reason Admit Date/Time Nov 19, 2016 at 11:38 Type of Consultation: id Referring Provider: JOAQUINA MCKEON MD Exam/Review of Systems Vital Signs Vitals Vital Signs Date Time Temp Pulse Resp B/P Pulse Ox O2 Delivery O2 Flow Rate FiO2 12/04/16 07:44 98.5 91 12 113/56 99 Room Air Intake and Output 12/03/16 12/03/16 12/04/16 15:00 23:00 07:00 Intake Total 300 ml 600 ml 868 ml Output Total 1850 ml 900 ml Balance 300 ml -1250 ml -32 ml Results Result Diagram: 12/04/16 0440 12/04/16 0440 Results 24 hrs Laboratory Tests Test 12/03/16 17:11 12/03/16 20:27 12/04/16 02:40 12/04/16 04:40 Bedside Glucose 145 80 Urine Color LT. YELLOW Urine Clarity CLEAR Urine pH 6.5 Urine Specific [place] <=1.005 L Urine Ketones NEGATIVE Urine Nitrite NEGATIVE Urine Bilirubin NEGATIVE Urine Urobilinogen 0.2 E.U./dL Urine Leukocyte Esterase 2+ H Urine Microscopic RBC 0-2 Urine Microscopic WBC 25-50 Urine Squamous Epithelial Cells FEW Urine Bacteria OCCASIONAL Urine Hemoglobin TRACE Urine Glucose NEGATIVE Urine Total Protein NEGATIVE White Blood Count 8.4 # Red Blood Count 3.32 L Hemoglobin 10.1 L Hematocrit 30.8 L Mean Corpuscular Volume 92.8 Mean Corpuscular Hemoglobin 30.4 Mean Corpuscular Hemoglobin Concent 32.8 Red Cell Distribution Width 13.4 Platelet Count 522 H Mean Platelet Volume 9.6 Neutrophils % 65.3 Lymphocytes % 21.9 Monocytes % 9.3 Eosinophils % 2.7 Basophils % 0.1 Nucleated Red Blood Cells % 0.0 Neutrophils # 5.5 Lymphocytes # 1.8 Monocytes # 0.8 Eosinophils # 0.2 Basophils # 0.0 Nucleated Red Blood Cells # 0.0 Sodium Level 134 L Potassium Level 4.9 Chloride Level 102 # Carbon Dioxide Level 29 Anion Gap 8 Blood Urea Nitrogen 12 Creatinine 0.39 L Glucose Level 91 # Calcium Level 8.9 Test 12/04/16 08:05 12/04/16 11:33 Bedside Glucose 80 103 Medications Medications Current Medications Diagnostic Test (Pha) (Accu-Chek) 1 ea 02 XX ; Start 11/20/16 at 02:00 Oxycodone/ Acetaminophen (Percocet (5/ 325)) 1 tab Q4H PRN PO PAIN Last administered on 12/01/16 17:36; Admin Dose 1 TAB; Start 11/19/16 at 18:30 Gabapentin (Neurontin) 300 mg TID PO Last administered on 12/04/16 12:16; Admin Dose 300 MG; Start 11/19/16 at 21:00 Oxycodone/ Acetaminophen (Percocet (5/ 325)) 2 tab Q4H PRN PO PAIN LEVEL 6-10 Last administered on 12/04/16 00:52; Admin Dose 2 TAB; Start 11/19/16 at 21:30 Miscellaneous Information 1 ea NOTE XX ; Start 11/20/16 at 08:00 Glucose (Glutose) 15 gm Q15M PRN PO DECREASED GLUCOSE; Start 11/20/16 at 08:00 Glucose (Glutose) 22.5 gm Q15M PRN PO DECREASED GLUCOSE; Start 11/20/16 at 08: 00 Dextrose (D50w Syringe) 25 ml Q15M PRN IV DECREASED GLUCOSE; Start 11/20/16 at 08:00 Dextrose (D50w Syringe) 50 ml Q15M PRN IV DECREASED GLUCOSE; Start 11/20/16 at 08:00 Glucagon (Glucagen) 1 mg Q15M PRN IM DECREASED GLUCOSE; Start 11/20/16 at 08:00 Glucose (Glutose) 15 gm Q15M PRN BUCCAL DECREASED GLUCOSE; Start 11/20/16 at 08 :00 Hydralazine HCl (Apresoline) 10 mg Q6H PRN IV SBP>160 Last administered on 11/28 19:37; Admin Dose 10 MG; Start 11/20/16 at 16:30 Insulin Glargine (Lantus) 6 unit DAILY@20 SC Last administered on 12/03/16 20: 31; Admin Dose 6 UNIT; Start 11/20/16 at 20:00 Cholecalciferol (Vitamin D) 2,000 unit DAILY PO Last administered on 12/04/16 08:47; Admin Dose 2,000 UNIT; Start 11/21/16 at 11:30 Famotidine (Pepcid) 20 mg BID PO Last administered on 12/04/16 08:47; Admin Dose 20 MG; Start 11/21/16 at 21:00 Clopidogrel Bisulfate (plaVIX) 75 mg DAILY PO Last administered on 12/04/16 08: 47; Admin Dose 75 MG; Start 11/22/16 at 12:30 Ondansetron HCl (Zofran Inj) 4 mg Q4H PRN IV NAUSEA AND/OR VOMITING Last administered on 11/29/16 20:58; Admin Dose 4 MG; Start 11/24/16 at 14:30 Metoclopramide HCl (Reglan) 5 mg Q4H PRN IV VOMITTING Last administered on 11/28 13:24; Admin Dose 5 MG; Start 11/26/16 at 18:00 Docusate Sodium (Colace) 100 mg BID PO Last administered on 12/04/16 08:47; Admin Dose 100 MG; Start 11/26/16 at 21:00 Polyethylene Glycol (Miralax) 17 gm DAILY PRN PO CONSTIPATION Last administered on 11/28/16 16:47; Admin Dose 17 GM; Start 11/27/16 at 17:00 Atorvastatin Calcium (Lipitor) 40 mg DAILY@21 PO Last administered on 12/03/16 20:29; Admin Dose 40 MG; Start 11/28/16 at 21:00 Lisinopril (Zestril) 20 mg DAILY PO Last administered on 12/04/16 08:48; Admin Dose 20 MG; Start 11/30/16 at 09:00 Mirtazapine (Remeron) 15 mg HS PO Last administered on 12/03/16 20:29; Admin Dose 15 MG; Start 11/29/16 at 21:00 Diphenhydramine HCl (Benadryl) 25 mg Q4H PRN IV PRURITUS; Start 12/01/16 at 09: 00 Ondansetron HCl (Zofran Inj) 4 mg Q6H PRN IV NAUSEA AND/OR VOMITING; Start 12/01 at 09:00 Naloxone HCl (Narcan) 0.2 mg Q2M PRN IV FOR RESP RATE 8 OR LESS; Start 12/01/16 at 09:00 Hydromorphone HCl (Dilaudid) 1.5 mg Q3 PRN IV PAIN Last administered on 12:17; Admin Dose 1.5 MG; Start 12/02/16 at 22:30 KATHERYN RINALDI NP December 04, 2016 13:37
--- NOTE | 2016-12-04 15:18 | CONS ---
Date/Time of Note Date/Time of Note DATE: 12/04/16 TIME: 15:16 Assessment/Plan Assessment/Plan Chief Complaint/Hosp Course IMPRESSION: 1. Preoperative evaluation prior to lower extremity vascular surgery.-negative troponin x 3. EKD 11/28 with no sig changes/single PVC. Relatively recent negative stress test and NL EF/no sig valve abnl by echo 09/2016. Now s/p RLE amputation POD#3 2. Hypertension, labile, but currently under reasonable control. ? component of pain 3. Dyslipidemia. 4. Peripheral arterial disease, status post left lower extremity above- knee amputation and right lower extremity with gangrenous changes, status post prior [employer]. 5. Diabetes mellitus. 6. Lower extremity gangrenous changes, right lower extremity. 7. Status post left lower extremity above-knee amputation. 8. Anemia. 9.PVC-single on ecg Recc: -Continue plavix/zestril -Local wound care/abx's -Pain control -Follow volume status closely Problems: Consultation Date/Type/Reason Admit Date/Time Nov 19, 2016 at 11:38 Initial Consult Date 11/28/2016 Type of Consultation: Cardiology Reason for Consultation HTN Referring Provider: JOAQUINA MCKEON MD Exam/Review of Systems Vital Signs Vitals Vital Signs Date Time Temp Pulse Resp B/P Pulse Ox O2 Delivery O2 Flow Rate FiO2 12/04/16 07:44 98.5 91 12 113/56 99 Room Air Intake and Output 12/03/16 12/03/16 12/04/16 15:00 23:00 07:00 Intake Total 300 ml 600 ml 868 ml Output Total 1850 ml 900 ml Balance 300 ml -1250 ml -32 ml Exam Review of Systems: CONSTITUTIONAL: No fevers, chills. PULMONARY: No sob CARDIOVASCULAR: No chest pain/palpitations GASTROINTESTINAL: No nausea/vomiting. GENITOURINARY: No hematuria/dysuria. MUSCULOSKELETAL: No myagias/arthalgias. PSYCHIATRIC: The patient denies depression. NEUROLOGIC: No weakness Constitutional: alert, oriented Psych: no complaints Head: normocephalic ENMT: mucosa pink and moist Neck: jvd (8-9 cm water), supple Respiratory: clear to auscultation Cardiovascular: regular rate and rhythm Gastrointestinal: non-tender, soft Musculoskeletal: other (s/p BVilateral LE amputation) Extremities: other Neurological: other (No focal deficits) Results Result Diagram: 12/04/16 0440 12/04/16 0440 Results 24 hrs Laboratory Tests Test 12/03/16 17:11 12/03/16 20:27 12/04/16 02:40 12/04/16 04:40 Bedside Glucose 145 80 Urine Color LT. YELLOW Urine Clarity CLEAR Urine pH 6.5 Urine Specific [place] <=1.005 L Urine Ketones NEGATIVE Urine Nitrite NEGATIVE Urine Bilirubin NEGATIVE Urine Urobilinogen 0.2 E.U./dL Urine Leukocyte Esterase 2+ H Urine Microscopic RBC 0-2 Urine Microscopic WBC 25-50 Urine Squamous Epithelial Cells FEW Urine Bacteria OCCASIONAL Urine Hemoglobin TRACE Urine Glucose NEGATIVE Urine Total Protein NEGATIVE White Blood Count 8.4 # Red Blood Count 3.32 L Hemoglobin 10.1 L Hematocrit 30.8 L Mean Corpuscular Volume 92.8 Mean Corpuscular Hemoglobin 30.4 Mean Corpuscular Hemoglobin Concent 32.8 Red Cell Distribution Width 13.4 Platelet Count 522 H Mean Platelet Volume 9.6 Neutrophils % 65.3 Lymphocytes % 21.9 Monocytes % 9.3 Eosinophils % 2.7 Basophils % 0.1 Nucleated Red Blood Cells % 0.0 Neutrophils # 5.5 Lymphocytes # 1.8 Monocytes # 0.8 Eosinophils # 0.2 Basophils # 0.0 Nucleated Red Blood Cells # 0.0 Sodium Level 134 L Potassium Level 4.9 Chloride Level 102 # Carbon Dioxide Level 29 Anion Gap 8 Blood Urea Nitrogen 12 Creatinine 0.39 L Glucose Level 91 # Calcium Level 8.9 Test 12/04/16 08:05 12/04/16 11:33 Bedside Glucose 80 103 Medications Medications Current Medications Diagnostic Test (Pha) (Accu-Chek) 1 ea 02 XX ; Start 11/20/16 at 02:00 Oxycodone/ Acetaminophen (Percocet (5/ 325)) 1 tab Q4H PRN PO PAIN Last administered on 12/01/16 17:36; Admin Dose 1 TAB; Start 11/19/16 at 18:30 Gabapentin (Neurontin) 300 mg TID PO Last administered on 12/04/16 12:16; Admin Dose 300 MG; Start 11/19/16 at 21:00 Oxycodone/ Acetaminophen (Percocet (5/ 325)) 2 tab Q4H PRN PO PAIN LEVEL 6-10 Last administered on 12/04/16 00:52; Admin Dose 2 TAB; Start 11/19/16 at 21:30 Miscellaneous Information 1 ea NOTE XX ; Start 11/20/16 at 08:00 Glucose (Glutose) 15 gm Q15M PRN PO DECREASED GLUCOSE; Start 11/20/16 at 08:00 Glucose (Glutose) 22.5 gm Q15M PRN PO DECREASED GLUCOSE; Start 11/20/16 at 08: 00 Dextrose (D50w Syringe) 25 ml Q15M PRN IV DECREASED GLUCOSE; Start 11/20/16 at 08:00 Dextrose (D50w Syringe) 50 ml Q15M PRN IV DECREASED GLUCOSE; Start 11/20/16 at 08:00 Glucagon (Glucagen) 1 mg Q15M PRN IM DECREASED GLUCOSE; Start 11/20/16 at 08:00 Glucose (Glutose) 15 gm Q15M PRN BUCCAL DECREASED GLUCOSE; Start 11/20/16 at 08 :00 Hydralazine HCl (Apresoline) 10 mg Q6H PRN IV SBP>160 Last administered on 11/28 19:37; Admin Dose 10 MG; Start 11/20/16 at 16:30 Insulin Glargine (Lantus) 6 unit DAILY@20 SC Last administered on 12/03/16 20: 31; Admin Dose 6 UNIT; Start 11/20/16 at 20:00 Cholecalciferol (Vitamin D) 2,000 unit DAILY PO Last administered on 12/04/16 08:47; Admin Dose 2,000 UNIT; Start 11/21/16 at 11:30 Famotidine (Pepcid) 20 mg BID PO Last administered on 12/04/16 08:47; Admin Dose 20 MG; Start 11/21/16 at 21:00 Clopidogrel Bisulfate (plaVIX) 75 mg DAILY PO Last administered on 12/04/16 08: 47; Admin Dose 75 MG; Start 11/22/16 at 12:30 Ondansetron HCl (Zofran Inj) 4 mg Q4H PRN IV NAUSEA AND/OR VOMITING Last administered on 11/29/16 20:58; Admin Dose 4 MG; Start 11/24/16 at 14:30 Metoclopramide HCl (Reglan) 5 mg Q4H PRN IV VOMITTING Last administered on 11/28 13:24; Admin Dose 5 MG; Start 11/26/16 at 18:00 Docusate Sodium (Colace) 100 mg BID PO Last administered on 12/04/16 08:47; Admin Dose 100 MG; Start 11/26/16 at 21:00 Polyethylene Glycol (Miralax) 17 gm DAILY PRN PO CONSTIPATION Last administered on 11/28/16 16:47; Admin Dose 17 GM; Start 11/27/16 at 17:00 Atorvastatin Calcium (Lipitor) 40 mg DAILY@21 PO Last administered on 12/03/16 20:29; Admin Dose 40 MG; Start 11/28/16 at 21:00 Lisinopril (Zestril) 20 mg DAILY PO Last administered on 12/04/16 08:48; Admin Dose 20 MG; Start 11/30/16 at 09:00 Mirtazapine (Remeron) 15 mg HS PO Last administered on 12/03/16 20:29; Admin Dose 15 MG; Start 11/29/16 at 21:00 Diphenhydramine HCl (Benadryl) 25 mg Q4H PRN IV PRURITUS; Start 12/01/16 at 09: 00 Ondansetron HCl (Zofran Inj) 4 mg Q6H PRN IV NAUSEA AND/OR VOMITING; Start 12/01 at 09:00 Naloxone HCl (Narcan) 0.2 mg Q2M PRN IV FOR RESP RATE 8 OR LESS; Start 12/01/16 at 09:00 Hydromorphone HCl (Dilaudid) 1.5 mg Q3 PRN IV PAIN Last administered on 12:17; Admin Dose 1.5 MG; Start 12/02/16 at 22:30 KAYLEIGH NORIEGA December 04, 2016 15:18
--- NOTE | 2016-12-04 15:38 | PN ---
Date/Time of Note Date/Time of Note DATE: 12/04/16 TIME: 15:35 Assessment/Plan VTE Prophylaxis VTE Prophylaxis Intervention: LMWH Lines/Catheters [facility] Urinary Cath still in place: Yes Reason Cath still needed: other (indicate) Assessment/Plan Assessment/Plan 1. Right lower extremity gangrenous wound with infection of 4th and 5th toe. The patient is S/P incision and drainage of the 4th and 5th toe with amputation of the right third toe by vascular surgery on 11/20/2016. s/p right BKA on 2016, follow up with surgery and physical therapy 2. Type 2 diabetes mellitus. Hemoglobin A1c 6.5. on insulins 3. Essential hypertension. controlled 4. Peripheral vascular disease. on plavix 5. Diabetic neuropathy. The patient will be continued on gabapentin. 6. Normocytic normochromic anemia. 7. Vitamin D deficiency. Continue vitamin D supplements. 8. s/p Left lower extremity amputation 9. DVT prophylaxis: lovenox Subjective 24 Hr Interval Summary Free Text/Dictation right BKA stump pain Exam/Review of Systems Vital Signs Vitals Vital Signs Date Time Temp Pulse Resp B/P Pulse Ox O2 Delivery O2 Flow Rate FiO2 12/04/16 07:44 98.5 91 12 113/56 99 Room Air Intake and Output 12/03/16 12/03/16 12/04/16 15:00 23:00 07:00 Intake Total 300 ml 600 ml 868 ml Output Total 1850 ml 900 ml Balance 300 ml -1250 ml -32 ml Exam Constitutional: alert, oriented, well developed Psych: nl mood/affect, no complaints Head: atraumatic, normocephalic Eyes: EOMI, PERRL, nl conjunctiva, nl lids ENMT: nl external ears & nose, nl lips & teeth, nl nasal mucosa & septum Neck: non-tender, supple Respiratory: clear to auscultation, normal air movement, No congested cough, No crackles/rales, No diminished breath sounds, No intercostal retraction, No labored breathing, No other, No respirations, No tactile fremitus, No wheezing Cardiovascular: nl pulses, regular rate and rhythm, No S3, No S4, No bruits, No diastolic murmur, No edema, No gallop, No irregular rhythm, No jugular venous distention (JVD), No murmurs/extra sounds, No other, No rub, No systolic murmur Gastrointestinal: nl liver, spleen, non-tender, soft, No ascites, No bowel sounds, No distended, No firm, No hepatomegaly, No mass , No other, No rebound or guarding, No splenomegaly, No surgical scars, No tender Musculoskeletal: other (s/p right BKA and left AKA) Neurological: PSYCHIATRIST II-XII intact, nl mental status, nl speech, nl strength Skin: nl turgor Lymph: nl lymph nodes Results Result Diagram: 12/04/1643912/04/16439 Results 24 hrs Laboratory Tests Test 12/03/16 17:11 12/03/16 20:27 12/04/16 02:40 12/04/16 04:40 Bedside Glucose 145 80 Urine Color LT. YELLOW Urine Clarity CLEAR Urine pH 6.5 Urine Specific [place] <=1.005 L Urine Ketones NEGATIVE Urine Nitrite NEGATIVE Urine Bilirubin NEGATIVE Urine Urobilinogen 0.2 E.U./dL Urine Leukocyte Esterase 2+ H Urine Microscopic RBC 0-2 Urine Microscopic WBC 25-50 Urine Squamous Epithelial Cells FEW Urine Bacteria OCCASIONAL Urine Hemoglobin TRACE Urine Glucose NEGATIVE Urine Total Protein NEGATIVE White Blood Count 8.4 # Red Blood Count 3.32 L Hemoglobin 10.1 L Hematocrit 30.8 L Mean Corpuscular Volume 92.8 Mean Corpuscular Hemoglobin 30.4 Mean Corpuscular Hemoglobin Concent 32.8 Red Cell Distribution Width 13.4 Platelet Count 522 H Mean Platelet Volume 9.6 Neutrophils % 65.3 Lymphocytes % 21.9 Monocytes % 9.3 Eosinophils % 2.7 Basophils % 0.1 Nucleated Red Blood Cells % 0.0 Neutrophils # 5.5 Lymphocytes # 1.8 Monocytes # 0.8 Eosinophils # 0.2 Basophils # 0.0 Nucleated Red Blood Cells # 0.0 Sodium Level 134 L Potassium Level 4.9 Chloride Level 102 # Carbon Dioxide Level 29 Anion Gap 8 Blood Urea Nitrogen 12 Creatinine 0.39 L Glucose Level 91 # Calcium Level 8.9 Test 12/04/16 08:05 12/04/16 11:33 Bedside Glucose 80 103 Medications Medications Current Medications Diagnostic Test (Pha) (Accu-Chek) 1 ea 02 XX ; Start 11/20/16 at 02:00 Oxycodone/ Acetaminophen (Percocet (5/ 325)) 1 tab Q4H PRN PO PAIN Last administered on 12/01/16 17:36; Admin Dose 1 TAB; Start 11/19/16 at 18:30 Gabapentin (Neurontin) 300 mg TID PO Last administered on 12/04/16 12:16; Admin Dose 300 MG; Start 11/19/16 at 21:00 Oxycodone/ Acetaminophen (Percocet (5/ 325)) 2 tab Q4H PRN PO PAIN LEVEL 6-10 Last administered on 12/04/16 00:52; Admin Dose 2 TAB; Start 11/19/16 at 21:30 Miscellaneous Information 1 ea NOTE XX ; Start 11/20/16 at 08:00 Glucose (Glutose) 15 gm Q15M PRN PO DECREASED GLUCOSE; Start 11/20/16 at 08:00 Glucose (Glutose) 22.5 gm Q15M PRN PO DECREASED GLUCOSE; Start 11/20/16 at 08: 00 Dextrose (D50w Syringe) 25 ml Q15M PRN IV DECREASED GLUCOSE; Start 11/20/16 at 08:00 Dextrose (D50w Syringe) 50 ml Q15M PRN IV DECREASED GLUCOSE; Start 11/20/16 at 08:00 Glucagon (Glucagen) 1 mg Q15M PRN IM DECREASED GLUCOSE; Start 11/20/16 at 08:00 Glucose (Glutose) 15 gm Q15M PRN BUCCAL DECREASED GLUCOSE; Start 11/20/16 at 08 :00 Hydralazine HCl (Apresoline) 10 mg Q6H PRN IV SBP>160 Last administered on 11/28 19:37; Admin Dose 10 MG; Start 11/20/16 at 16:30 Insulin Glargine (Lantus) 6 unit DAILY@20 SC Last administered on 12/03/16 20: 31; Admin Dose 6 UNIT; Start 11/20/16 at 20:00 Cholecalciferol (Vitamin D) 2,000 unit DAILY PO Last administered on 12/04/16 08:47; Admin Dose 2,000 UNIT; Start 11/21/16 at 11:30 Famotidine (Pepcid) 20 mg BID PO Last administered on 12/04/16 08:47; Admin Dose 20 MG; Start 11/21/16 at 21:00 Clopidogrel Bisulfate (plaVIX) 75 mg DAILY PO Last administered on 12/04/16 08: 47; Admin Dose 75 MG; Start 11/22/16 at 12:30 Ondansetron HCl (Zofran Inj) 4 mg Q4H PRN IV NAUSEA AND/OR VOMITING Last administered on 11/29/16 20:58; Admin Dose 4 MG; Start 11/24/16 at 14:30 Metoclopramide HCl (Reglan) 5 mg Q4H PRN IV VOMITTING Last administered on 11/28 13:24; Admin Dose 5 MG; Start 11/26/16 at 18:00 Docusate Sodium (Colace) 100 mg BID PO Last administered on 12/04/16 08:47; Admin Dose 100 MG; Start 11/26/16 at 21:00 Polyethylene Glycol (Miralax) 17 gm DAILY PRN PO CONSTIPATION Last administered on 11/28/16 16:47; Admin Dose 17 GM; Start 11/27/16 at 17:00 Atorvastatin Calcium (Lipitor) 40 mg DAILY@21 PO Last administered on 12/03/16 20:29; Admin Dose 40 MG; Start 11/28/16 at 21:00 Lisinopril (Zestril) 20 mg DAILY PO Last administered on 12/04/16 08:48; Admin Dose 20 MG; Start 11/30/16 at 09:00 Mirtazapine (Remeron) 15 mg HS PO Last administered on 12/03/16 20:29; Admin Dose 15 MG; Start 11/29/16 at 21:00 Diphenhydramine HCl (Benadryl) 25 mg Q4H PRN IV PRURITUS; Start 12/01/16 at 09: 00 Ondansetron HCl (Zofran Inj) 4 mg Q6H PRN IV NAUSEA AND/OR VOMITING; Start 12/01 at 09:00 Naloxone HCl (Narcan) 0.2 mg Q2M PRN IV FOR RESP RATE 8 OR LESS; Start 12/01/16 at 09:00 Hydromorphone HCl (Dilaudid) 1.5 mg Q3 PRN IV PAIN Last administered on 12:17; Admin Dose 1.5 MG; Start 12/02/16 at 22:30 BI VALLEJO MD December 04, 2016 15:38
[2016-12-04] MEDS: ENOXAPARIN 30 MG/0.3 ML SYG SC SCH (16:20)
[2016-12-04 20:13] VITALS: BP 105/55; RESP 18
[2016-12-04] MEDS: MIRTAZAPINE 15 MG TAB PO SCH (20:44)
[2016-12-04] MEDS: ATORVASTATIN 40 MG TAB PO SCH (20:44)
[2016-12-04] MEDS: INSULIN GLARGINE [LANtus] 3 ML PEN SC SCH (20:47)
[2016-12-05] MEDS: HYDROmorphONE 2 MG/ML SYG IV PRN ×7 (01:43→21:17)
[2016-12-05] MEDS: POLYETHYLENE GLYCOL 17 GM PACKET PO PRN (01:49)
[2016-12-05] MEDS: ACCU-CHEK XX SCH (01:54)
[2016-12-05] MEDS: OXYCODONE/ACETAMINOPHEN (5/325) TAB PO PRN ×2 (03:40→14:22)
[2016-12-05 05:18] VITALS: BP 113/57; PULSE 94; RESP 16
[2016-12-05 07:25] VITALS: BP 110/57; RESP 18
[2016-12-05] MEDS: CLOPIDOGREL 75 MG TAB PO SCH (08:15)
[2016-12-05] MEDS: DOCUSATE SODIUM 100 MG CAP PO SCH ×2 (08:15→21:17)
[2016-12-05] MEDS: LISINOPRIL 20 MG TAB PO SCH (08:15)
[2016-12-05] MEDS: GABAPENTIN 300 MG CAP PO SCH ×3 (08:15→21:17)
[2016-12-05] MEDS: ENOXAPARIN 30 MG/0.3 ML SYG SC SCH (08:16)
[2016-12-05] MEDS: FAMOTIDINE 20 MG TAB PO SCH ×2 (08:16→21:29)
[2016-12-05] MEDS: CHOLECALCIFEROL 2,000 UNIT CAP PO SCH (08:16)
[2016-12-05] MEDS: INSULIN ASPART [NOVOLOG] 3 ML PEN SC SCH ×7 (08:17→21:34)
--- NOTE | 2016-12-05 08:40 | PN ---
Date/Time of Note Date/Time of Note DATE: 12/05/16 TIME: 08:37 Assessment/Plan VTE Prophylaxis VTE Prophylaxis Intervention: heparin Lines/Catheters IV Catheter Type (from Nrs): Saline Lock Urinary Cath still in place: Yes Reason Cath still needed: urinary retention (As per Dr. Alvarez) Assessment/Plan Problems: (1) Acquired absence of left leg above knee Status: Chronic Comment: Noted. This is due to necrotizing fasciitis. This is going to affect her rehabilitation. (2) Peripheral vascular disease Status: Chronic Comment: She is now status post surgery due to inability to revascularize distally. Continue maximum medical therapy to avoid new issues. She is now status post right BKA and recuperating. Her main issue here is for pain control. I am going to add in a long-acting opiate to see if he can take down the level of her discomfort and give her some relief. She will then need rehabilitation therapy to get her trained up so we can ultimately get her prosthesis. Dr. alvarez he is in charge. Please note in terms of when to discontinue the Vee catheter will defer this off to our surgery colleagues (3) Diabetes mellitus with polyneuropathy Status: Chronic Comment: In a controlled environment good blood sugar control Qualifiers: Diabetes mellitus type: type 2 Qualified Code: E11.42 - Diabetic polyneuropathy associated with type 2 diabetes mellitus (4) Adjustment disorder with depressed mood Status: Acute Comment: She remains on antidepressant doing fair under the circumstances. Her pain control is a significant issue affecting this (5) Hyperlipidemia Status: Chronic Comment: On full dose statin Qualifiers: Hyperlipidemia type: pure hypercholesterolemia Qualified Code: E78.00 - Pure hypercholesterolemia (6) Essential hypertension Status: Chronic Comment: Well-controlled. Subjective 24 Hr Interval Summary Free Text/Dictation Patient complains of pain but otherwise is doing okay Constitutional: no complaints (Denies fevers chills or sweats) Respiratory: no complaints Cardiovascular: no complaints Gastrointestinal: no complaints Genitourinary: no complaints Psychological: depression Exam/Review of Systems Vital Signs Vitals Vital Signs Date Time Temp Pulse Resp B/P Pulse Ox O2 Delivery O2 Flow Rate FiO2 12/05/16 05:18 99.2 94 16 113/57 12/04/16 20:13 92 12/04/16 07:44 Room Air Intake and Output 12/04/16 12/04/16 12/05/16 15:00 23:00 07:00 Intake Total 340 ml 480 ml Output Total 700 ml 700 ml Balance -360 ml -220 ml Exam Constitutional: alert, oriented Respiratory: clear to auscultation, normal air movement Cardiovascular: nl pulses, regular rate and rhythm Extremities: other (Left lower extremity surgically absent right lower extremity BKA and a bandage which is tender with minimal motion) Results Result Diagram: 12/04/16 0440 12/04/16 0440 Results 24 hrs Laboratory Tests Test 12/04/16 11:33 12/04/16 17:24 12/04/16 20:42 12/05/16 01:52 Bedside Glucose 103 119 207 177 Test 12/05/16 07:50 Bedside Glucose 149 Medications Medications Current Medications Diagnostic Test (Pha) (Accu-Chek) 1 ea 02 XX ; Start 11/20/16 at 02:00 Oxycodone/ Acetaminophen (Percocet (5/ 325)) 1 tab Q4H PRN PO PAIN Last administered on 12/01/16 17:36; Admin Dose 1 TAB; Start 11/19/16 at 18:30 Gabapentin (Neurontin) 300 mg TID PO Last administered on 12/05/16 08:15; Admin Dose 300 MG; Start 11/19/16 at 21:00 Oxycodone/ Acetaminophen (Percocet (5/ 325)) 2 tab Q4H PRN PO PAIN LEVEL 6-10 Last administered on 12/05/16 03:40; Admin Dose 2 TAB; Start 11/19/16 at 21:30 Miscellaneous Information 1 ea NOTE XX ; Start 11/20/16 at 08:00 Glucose (Glutose) 15 gm Q15M PRN PO DECREASED GLUCOSE; Start 11/20/16 at 08:00 Glucose (Glutose) 22.5 gm Q15M PRN PO DECREASED GLUCOSE; Start 11/20/16 at 08: 00 Dextrose (D50w Syringe) 25 ml Q15M PRN IV DECREASED GLUCOSE; Start 11/20/16 at 08:00 Dextrose (D50w Syringe) 50 ml Q15M PRN IV DECREASED GLUCOSE; Start 11/20/16 at 08:00 Glucagon (Glucagen) 1 mg Q15M PRN IM DECREASED GLUCOSE; Start 11/20/16 at 08:00 Glucose (Glutose) 15 gm Q15M PRN BUCCAL DECREASED GLUCOSE; Start 11/20/16 at 08 :00 Hydralazine HCl (Apresoline) 10 mg Q6H PRN IV SBP>160 Last administered on 11/28 19:37; Admin Dose 10 MG; Start 11/20/16 at 16:30 Insulin Glargine (Lantus) 6 unit DAILY@20 SC Last administered on 12/04/16 20: 47; Admin Dose 6 UNIT; Start 11/20/16 at 20:00 Cholecalciferol (Vitamin D) 2,000 unit DAILY PO Last administered on 12/05/16 08:16; Admin Dose 2,000 UNIT; Start 11/21/16 at 11:30 Famotidine (Pepcid) 20 mg BID PO Last administered on 12/05/16 08:16; Admin Dose 20 MG; Start 11/21/16 at 21:00 Clopidogrel Bisulfate (plaVIX) 75 mg DAILY PO Last administered on 12/05/16 08: 15; Admin Dose 75 MG; Start 11/22/16 at 12:30 Ondansetron HCl (Zofran Inj) 4 mg Q4H PRN IV NAUSEA AND/OR VOMITING Last administered on 11/29/16 20:58; Admin Dose 4 MG; Start 11/24/16 at 14:30 Metoclopramide HCl (Reglan) 5 mg Q4H PRN IV VOMITTING Last administered on 11/28 13:24; Admin Dose 5 MG; Start 11/26/16 at 18:00 Docusate Sodium (Colace) 100 mg BID PO Last administered on 12/05/16 08:15; Admin Dose 100 MG; Start 11/26/16 at 21:00 Polyethylene Glycol (Miralax) 17 gm DAILY PRN PO CONSTIPATION Last administered on 12/05/16 01:49; Admin Dose 17 GM; Start 11/27/16 at 17:00 Atorvastatin Calcium (Lipitor) 40 mg DAILY@21 PO Last administered on 12/04/16 20:44; Admin Dose 40 MG; Start 11/28/16 at 21:00 Lisinopril (Zestril) 20 mg DAILY PO Last administered on 12/05/16 08:15; Admin Dose 20 MG; Start 11/30/16 at 09:00 Mirtazapine (Remeron) 15 mg HS PO Last administered on 12/04/16 20:44; Admin Dose 15 MG; Start 11/29/16 at 21:00 Diphenhydramine HCl (Benadryl) 25 mg Q4H PRN IV PRURITUS; Start 12/01/16 at 09: 00 Ondansetron HCl (Zofran Inj) 4 mg Q6H PRN IV NAUSEA AND/OR VOMITING; Start 12/01 at 09:00 Naloxone HCl (Narcan) 0.2 mg Q2M PRN IV FOR RESP RATE 8 OR LESS; Start 12/01/16 at 09:00 Hydromorphone HCl (Dilaudid) 1.5 mg Q3 PRN IV PAIN Last administered on 08:22; Admin Dose 1.5 MG; Start 12/02/16 at 22:30 Enoxaparin Sodium (Lovenox) 30 mg DAILY SC Last administered on 12/05/16 08:16 ; Admin Dose 30 MG; Start 12/04/16 at 16:00 ORALIA BLUE MD December 05, 2016 08:40
[2016-12-05] MEDS ORDERED: GABAPENTIN 300 MG CAP PO SCH (09:00)
[2016-12-05] MEDS: morphine (ER) 15 MG TAB PO SCH ×2 (10:26→21:17)
--- NOTE | 2016-12-05 12:18 | CONS ---
Date/Time of Note Date/Time of Note DATE: 12/05/16 TIME: 12:17 Assessment/Plan Assessment/Plan Additional Assessment/Plan 1. Preoperative evaluation prior to lower extremity vascular surgery.-negative troponin x 3. EKD 11/28 with no sig changes/single PVC. Relatively recent negative stress test and NL EF/no sig valve abnl by echo 09/2016. Now s/p RLE amputation POD - con't medical optimization 2. Hypertension, labile, but currently under reasonable control. ? component of pain - stable, con't pain Rx 3. Dyslipidemia. 4. 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 5. Diabetes mellitus- on meds, keep euvolemic. 6. Lower extremity gangrenous changes, right lower extremity. 7. Status post left lower extremity above-knee amputation. 8. Anemia. 9.PVC-single on ecg Consultation Date/Type/Reason Admit Date/Time Nov 19, 2016 at 11:38 Type of Consultation: Cardiology Referring Provider: JOAQUINA MCKEON MD 24 HR Interval Summary Free Text/Dictation Post op - tolerated procedure well - con't med Rx ROS: No fever, no chills, no nausea, no vomiting, no diarrhea/constipation No recent weight changes No chest pain, no PND, no orthopnea No dizziness, blurred vision No thirst, no heat or cold intolerance Exam/Review of Systems Vital Signs Vitals Vital Signs Date Time Temp Pulse Resp B/P Pulse Ox O2 Delivery O2 Flow Rate FiO2 12/05/16 07:25 98.2 86 18 110/57 97 12/04/16 07:44 Room Air Intake and Output 12/04/16 12/04/16 12/05/16 15:00 23:00 07:00 Intake Total 340 ml 480 ml Output Total 700 ml 700 ml Balance -360 ml -220 ml Exam General: WN/WD/NAD, AOx 2-3 HEENT: Unicetric/atraumatic/EOMI (follow commands) NECK: JVD elevated, no thyromegaly Lymph: no lymphadenopathy HEART: regular with no S3, II/ systolic murmur at apex LUNGS: Coarse sounds ABD: soft, NT, ND, +BS : Intact Neuro: non focal SKIN: chronic changes EXT: trace edema, post op Results Result Diagram: 5/5/17 0440 12/04/16 0440 Results 24 hrs Laboratory Tests Test 12/04/16 17:24 12/04/16 20:42 12/05/16 01:52 12/05/16 07:50 Bedside Glucose 119 207 177 149 Test 12/05/16 11:56 Bedside Glucose 168 Medications Medications Current Medications Diagnostic Test (Pha) (Accu-Chek) 1 ea 02 XX ; Start 11/20/16 at 02:00 Oxycodone/ Acetaminophen (Percocet (5/ 325)) 1 tab Q4H PRN PO PAIN Last administered on 12/01/16 17:36; Admin Dose 1 TAB; Start 11/19/16 at 18:30 Oxycodone/ Acetaminophen (Percocet (5/ 325)) 2 tab Q4H PRN PO PAIN LEVEL 6-10 Last administered on 12/05/16 03:40; Admin Dose 2 TAB; Start 11/19/16 at 21:30 Miscellaneous Information 1 ea NOTE XX ; Start 11/20/16 at 08:00 Glucose (Glutose) 15 gm Q15M PRN PO DECREASED GLUCOSE; Start 11/20/16 at 08:00 Glucose (Glutose) 22.5 gm Q15M PRN PO DECREASED GLUCOSE; Start 11/20/16 at 08: 00 Dextrose (D50w Syringe) 25 ml Q15M PRN IV DECREASED GLUCOSE; Start 11/20/16 at 08:00 Dextrose (D50w Syringe) 50 ml Q15M PRN IV DECREASED GLUCOSE; Start 11/20/16 at 08:00 Glucagon (Glucagen) 1 mg Q15M PRN IM DECREASED GLUCOSE; Start 11/20/16 at 08:00 Glucose (Glutose) 15 gm Q15M PRN BUCCAL DECREASED GLUCOSE; Start 11/20/16 at 08 :00 Hydralazine HCl (Apresoline) 10 mg Q6H PRN IV SBP>160 Last administered on 11/28 19:37; Admin Dose 10 MG; Start 11/20/16 at 16:30 Insulin Glargine (Lantus) 6 unit DAILY@20 SC Last administered on 12/04/16 20: 47; Admin Dose 6 UNIT; Start 11/20/16 at 20:00 Cholecalciferol (Vitamin D) 2,000 unit DAILY PO Last administered on 12/05/16 08:16; Admin Dose 2,000 UNIT; Start 11/21/16 at 11:30 Famotidine (Pepcid) 20 mg BID PO Last administered on 12/05/16 08:16; Admin Dose 20 MG; Start 11/21/16 at 21:00 Clopidogrel Bisulfate (plaVIX) 75 mg DAILY PO Last administered on 12/05/16 08: 15; Admin Dose 75 MG; Start 11/22/16 at 12:30 Ondansetron HCl (Zofran Inj) 4 mg Q4H PRN IV NAUSEA AND/OR VOMITING Last administered on 11/29/16 20:58; Admin Dose 4 MG; Start 11/24/16 at 14:30 Metoclopramide HCl (Reglan) 5 mg Q4H PRN IV VOMITTING Last administered on 11/28 13:24; Admin Dose 5 MG; Start 11/26/16 at 18:00 Docusate Sodium (Colace) 100 mg BID PO Last administered on 12/05/16 08:15; Admin Dose 100 MG; Start 11/26/16 at 21:00 Polyethylene Glycol (Miralax) 17 gm DAILY PRN PO CONSTIPATION Last administered on 12/05/16 01:49; Admin Dose 17 GM; Start 11/27/16 at 17:00 Atorvastatin Calcium (Lipitor) 40 mg DAILY@21 PO Last administered on 12/04/16 20:44; Admin Dose 40 MG; Start 11/28/16 at 21:00 Lisinopril (Zestril) 20 mg DAILY PO Last administered on 12/05/16 08:15; Admin Dose 20 MG; Start 11/30/16 at 09:00 Mirtazapine (Remeron) 15 mg HS PO Last administered on 12/04/16 20:44; Admin Dose 15 MG; Start 11/29/16 at 21:00 Diphenhydramine HCl (Benadryl) 25 mg Q4H PRN IV PRURITUS; Start 12/01/16 at 09: 00 Ondansetron HCl (Zofran Inj) 4 mg Q6H PRN IV NAUSEA AND/OR VOMITING; Start 12/01 at 09:00 Naloxone HCl (Narcan) 0.2 mg Q2M PRN IV FOR RESP RATE 8 OR LESS; Start 12/01/16 at 09:00 Hydromorphone HCl (Dilaudid) 1.5 mg Q3 PRN IV PAIN Last administered on 11:57; Admin Dose 1.5 MG; Start 12/02/16 at 22:30 Enoxaparin Sodium (Lovenox) 30 mg DAILY SC Last administered on 12/05/16 08:16 ; Admin Dose 30 MG; Start 12/04/16 at 16:00 Gabapentin (Neurontin) 600 mg TID PO Last administered on 12/05/16 12:01; Admin Dose 600 MG; Start 12/05/16 at 13:00 Morphine Sulfate (Ms Contin (Er)) 15 mg BID PO Last administered on 12/05/16 10 :26; Admin Dose 15 MG; Start 12/05/16 at 09:00 APRYL IVY MD December 05, 2016 12:18
--- NOTE | 2016-12-05 19:56 | CONS ---
Date/Time of Note Date/Time of Note DATE: 12/05/16 TIME: 19:55 Assessment/Plan Assessment/Plan Chief Complaint/Hosp Course SUBJECTIVE: No events overnight. The patient is alert, nad, no fevers PHYSICAL EXAMINATION: GENERAL: Well-developed, middle-aged woman who is awake, in no distress. HEENT: Head atraumatic, normocephalic. Sclerae anicteric. Buccal mucosa pink. NECK: Supple. CHEST: Rise symmetrical. Breath sounds clear. HEART: S1, S2. ABDOMEN: Soft, bowel tones present. EXTREMITIES: With right lower extremity dressing intact. ASSESSMENT: 1. Severe peripheral arterial disease status post right below-knee amputation 2. History of Clostridium difficile colitis. 3. Diabetes. 4. History of left above-knee amputation. PLAN: The patient remains stable, off abx, will monitor wound for infection, f/ u vascular rec-s. staff Problems: Consultation Date/Type/Reason Admit Date/Time Nov 19, 2016 at 11:38 Type of Consultation: id Referring Provider: JOAQUINA MCKEON MD Exam/Review of Systems Vital Signs Vitals Vital Signs Date Time Temp Pulse Resp B/P Pulse Ox O2 Delivery O2 Flow Rate FiO2 12/05/16 07:25 98.2 86 18 110/57 97 12/04/16 07:44 Room Air Intake and Output 12/04/16 12/04/16 12/05/16 15:00 23:00 07:00 Intake Total 340 ml 480 ml Output Total 700 ml 700 ml Balance -360 ml -220 ml Results Result Diagram: 12/04/16 0440 12/04/16 0440 Results 24 hrs Laboratory Tests Test 12/04/16 20:42 12/05/16 01:52 12/05/16 07:50 12/05/16 11:56 Bedside Glucose 207 177 149 168 Test 12/05/16 17:30 Bedside Glucose 172 Medications Medications Current Medications Diagnostic Test (Pha) (Accu-Chek) 1 ea 02 XX ; Start 11/20/16 at 02:00 Oxycodone/ Acetaminophen (Percocet (5/ 325)) 1 tab Q4H PRN PO PAIN Last administered on 12/01/16t 17:36; Admin Dose 1 TAB; Start 11/19/16 at 18:30 Oxycodone/ Acetaminophen (Percocet (5/ 325)) 2 tab Q4H PRN PO PAIN LEVEL 6-10 Last administered on 12/05/16 14:22; Admin Dose 2 TAB; Start 11/19/16 at 21:30 Miscellaneous Information 1 ea NOTE XX ; Start 11/20/16 at 08:00 Glucose (Glutose) 15 gm Q15M PRN PO DECREASED GLUCOSE; Start 11/20/16 at 08:00 Glucose (Glutose) 22.5 gm Q15M PRN PO DECREASED GLUCOSE; Start 11/20/16 at 08: 00 Dextrose (D50w Syringe) 25 ml Q15M PRN IV DECREASED GLUCOSE; Start 11/20/16 at 08:00 Dextrose (D50w Syringe) 50 ml Q15M PRN IV DECREASED GLUCOSE; Start 11/20/16 at 08:00 Glucagon (Glucagen) 1 mg Q15M PRN IM DECREASED GLUCOSE; Start 11/20/16 at 08:00 Glucose (Glutose) 15 gm Q15M PRN BUCCAL DECREASED GLUCOSE; Start 11/20/16 at 08 :00 Hydralazine HCl (Apresoline) 10 mg Q6H PRN IV SBP>160 Last administered on 11/28 19:37; Admin Dose 10 MG; Start 11/20/16 at 16:30 Insulin Glargine (Lantus) 6 unit DAILY@20 SC Last administered on 12/04/16 20: 47; Admin Dose 6 UNIT; Start 11/20/16 at 20:00 Cholecalciferol (Vitamin D) 2,000 unit DAILY PO Last administered on 12/05/16 08:16; Admin Dose 2,000 UNIT; Start 11/21/16 at 11:30 Famotidine (Pepcid) 20 mg BID PO Last administered on 12/05/16 08:16; Admin Dose 20 MG; Start 11/21/16 at 21:00 Clopidogrel Bisulfate (plaVIX) 75 mg DAILY PO Last administered on 12/05/16 08: 15; Admin Dose 75 MG; Start 11/22/16 at 12:30 Ondansetron HCl (Zofran Inj) 4 mg Q4H PRN IV NAUSEA AND/OR VOMITING Last administered on 11/29/16 20:58; Admin Dose 4 MG; Start 11/24/16 at 14:30 Metoclopramide HCl (Reglan) 5 mg Q4H PRN IV VOMITTING Last administered on 11/28 13:24; Admin Dose 5 MG; Start 11/26/16 at 18:00 Docusate Sodium (Colace) 100 mg BID PO Last administered on 12/05/16 08:15; Admin Dose 100 MG; Start 11/26/16 at 21:00 Polyethylene Glycol (Miralax) 17 gm DAILY PRN PO CONSTIPATION Last administered on 12/05/16 01:49; Admin Dose 17 GM; Start 11/27/16 at 17:00 Atorvastatin Calcium (Lipitor) 40 mg DAILY@21 PO Last administered on 12/04/16 20:44; Admin Dose 40 MG; Start 11/28/16 at 21:00 Lisinopril (Zestril) 20 mg DAILY PO Last administered on 12/05/16 08:15; Admin Dose 20 MG; Start 11/30/16 at 09:00 Mirtazapine (Remeron) 15 mg HS PO Last administered on 12/04/16 20:44; Admin Dose 15 MG; Start 11/29/16 at 21:00 Diphenhydramine HCl (Benadryl) 25 mg Q4H PRN IV PRURITUS; Start 12/01/16 at 09: 00 Ondansetron HCl (Zofran Inj) 4 mg Q6H PRN IV NAUSEA AND/OR VOMITING; Start 12/01 at 09:00 Naloxone HCl (Narcan) 0.2 mg Q2M PRN IV FOR RESP RATE 8 OR LESS; Start 12/01/16 at 09:00 Hydromorphone HCl (Dilaudid) 1.5 mg Q3 PRN IV PAIN Last administered on 18:19; Admin Dose 1.5 MG; Start 12/02/16 at 22:30 Enoxaparin Sodium (Lovenox) 30 mg DAILY SC Last administered on 12/05/16 08:16 ; Admin Dose 30 MG; Start 12/04/16 at 16:00 Gabapentin (Neurontin) 600 mg TID PO Last administered on 12/05/16 12:01; Admin Dose 600 MG; Start 12/05/16 at 13:00 Morphine Sulfate (Ms Contin (Er)) 15 mg BID PO Last administered on 12/05/16 10 :26; Admin Dose 15 MG; Start 12/05/16 at 09:00 KATHERYN RINALDI NP December 05, 2016 19:56
[2016-12-05] MEDS: ATORVASTATIN 40 MG TAB PO SCH (21:17)
[2016-12-05] MEDS: MIRTAZAPINE 15 MG TAB PO SCH (21:17)
[2016-12-05] MEDS: INSULIN GLARGINE [LANtus] 3 ML PEN SC SCH (21:28)
[2016-12-05] MEDS ORDERED: INSULIN ASPART [NOVOLOG] 3 ML PEN SC ONE (21:30)
[2016-12-05 22:05] VITALS: BP 135/64; RESP 18
[2016-12-06] MEDS: HYDROmorphONE 2 MG/ML SYG IV PRN ×5 (00:12→19:55)
[2016-12-06] MEDS: POLYETHYLENE GLYCOL 17 GM PACKET PO PRN (00:13)
[2016-12-06] MEDS: ACCU-CHEK XX SCH (02:00)
[2016-12-06] MEDS: OXYCODONE/ACETAMINOPHEN (5/325) TAB PO PRN ×2 (02:27→18:49)
[2016-12-06] MEDS: INSULIN ASPART [NOVOLOG] 3 ML PEN SC SCH ×7 (08:00→20:52)
[2016-12-06 08:40] VITALS: BP 104/56; RESP 17
[2016-12-06] MEDS: DOCUSATE SODIUM 100 MG CAP PO SCH ×2 (08:50→20:51)
[2016-12-06] MEDS: GABAPENTIN 300 MG CAP PO SCH ×3 (08:50→20:52)
[2016-12-06] MEDS: FAMOTIDINE 20 MG TAB PO SCH ×2 (08:50→20:52)
[2016-12-06] MEDS: CLOPIDOGREL 75 MG TAB PO SCH (08:50)
[2016-12-06] MEDS: LISINOPRIL 20 MG TAB PO SCH (08:51)
[2016-12-06] MEDS: CHOLECALCIFEROL 2,000 UNIT CAP PO SCH (08:51)
[2016-12-06] MEDS: ENOXAPARIN 30 MG/0.3 ML SYG SC SCH (08:53)
[2016-12-06] MEDS: morphine (ER) 15 MG TAB PO SCH ×2 (08:55→20:52)
--- NOTE | 2016-12-06 12:22 | PN ---
Date/Time of Note Date/Time of Note DATE: 12/06/16 TIME: 12:18 Assessment/Plan VTE Prophylaxis VTE Prophylaxis Intervention: heparin Lines/Catheters IV Catheter Type (from Nrs): Saline Lock Urinary Cath still in place: Yes Reason Cath still needed: urinary retention Assessment/Plan Problems: (1) Status post below knee amputation of right lower extremity Onset Date: ~ 12/01/2016 Status: Acute Comment: Patient is 5 days postop and pain control is doing relatively well. There is no evidence of untoward medical complications. Will need input from our surgical colleagues about the plans for sending her to a rehabilitation facility with the ultimate plans to at least get her prosthesis or other types of rehabilitative functions. (2) Essential hypertension Status: Chronic Comment: Well-controlled (3) Hyperlipidemia Status: Chronic Comment: On statin therapy Qualifiers: Hyperlipidemia type: pure hypercholesterolemia Qualified Code: E78.00 - Pure hypercholesterolemia (4) Acquired absence of left leg above knee Status: Chronic Comment: Noted. (5) Adjustment disorder with depressed mood Status: Acute Comment: She is coming along with the therapeutics. Please note this is largely Testament to how strong her human she is (6) Peripheral vascular disease Status: Chronic Comment: Postop (7) Diabetes mellitus with polyneuropathy Status: Chronic Comment: Good blood sugar control Qualifiers: Diabetes mellitus type: type 2 Qualified Code: E11.42 - Diabetic polyneuropathy associated with type 2 diabetes mellitus Subjective 24 Hr Interval Summary Free Text/Dictation Patient reports her pain is less although she is being tough and still Constitutional: no complaints (No fever chills or sweats) Respiratory: no complaints Cardiovascular: no complaints Gastrointestinal: no complaints Exam/Review of Systems Vital Signs Vitals Vital Signs Date Time Temp Pulse Resp B/P Pulse Ox O2 Delivery O2 Flow Rate FiO2 12/06/16 08:40 97.8 76 17 104/56 95 12/04/16 07:44 Room Air Intake and Output 12/05/16 12/05/16 12/06/16 15:00 23:00 07:00 Intake Total 840 ml 340 ml Output Total 900 ml 1400 ml Balance -60 ml -1060 ml Exam Constitutional: alert, oriented Respiratory: clear to auscultation, normal air movement Cardiovascular: nl pulses, regular rate and rhythm Gastrointestinal: nl liver, spleen, non-tender, soft Results Result Diagram: 12/04/16 0440 12/04/16 0440 Results 24 hrs Laboratory Tests Test 12/05/16 17:30 12/05/16 21:24 12/06/16 02:23 12/06/16 07:53 Bedside Glucose 172 313 H 122 118 Test 12/06/16 12:16 Bedside Glucose 163 Medications Medications Current Medications Diagnostic Test (Pha) (Accu-Chek) 1 ea 02 XX ; Start 11/20/16 at 02:00 Oxycodone/ Acetaminophen (Percocet (5/ 325)) 1 tab Q4H PRN PO PAIN Last administered on 12/01/16 17:36; Admin Dose 1 TAB; Start 11/19/16 at 18:30 Oxycodone/ Acetaminophen (Percocet (5/ 325)) 2 tab Q4H PRN PO PAIN LEVEL 6-10 Last administered on 12/06/16 02:27; Admin Dose 2 TAB; Start 11/19/16 at 21:30 Miscellaneous Information 1 ea NOTE XX ; Start 11/20/16 at 08:00 Glucose (Glutose) 15 gm Q15M PRN PO DECREASED GLUCOSE; Start 11/20/16 at 08:00 Glucose (Glutose) 22.5 gm Q15M PRN PO DECREASED GLUCOSE; Start 11/20/16 at 08: 00 Dextrose (D50w Syringe) 25 ml Q15M PRN IV DECREASED GLUCOSE; Start 11/20/16 at 08:00 Dextrose (D50w Syringe) 50 ml Q15M PRN IV DECREASED GLUCOSE; Start 11/20/16 at 08:00 Glucagon (Glucagen) 1 mg Q15M PRN IM DECREASED GLUCOSE; Start 11/20/16 at 08:00 Glucose (Glutose) 15 gm Q15M PRN BUCCAL DECREASED GLUCOSE; Start 11/20/16 at 08 :00 Hydralazine HCl (Apresoline) 10 mg Q6H PRN IV SBP>160 Last administered on 11/28 19:37; Admin Dose 10 MG; Start 11/20/16 at 16:30 Insulin Glargine (Lantus) 6 unit DAILY@20 SC Last administered on 12/05/16 21: 28; Admin Dose 6 UNIT; Start 11/20/16 at 20:00 Cholecalciferol (Vitamin D) 2,000 unit DAILY PO Last administered on 12/06/16 08:51; Admin Dose 2,000 UNIT; Start 11/21/16 at 11:30 Famotidine (Pepcid) 20 mg BID PO Last administered on 12/06/16 08:50; Admin Dose 20 MG; Start 11/21/16 at 21:00 Clopidogrel Bisulfate (plaVIX) 75 mg DAILY PO Last administered on 12/06/16 08: 50; Admin Dose 75 MG; Start 11/22/16 at 12:30 Ondansetron HCl (Zofran Inj) 4 mg Q4H PRN IV NAUSEA AND/OR VOMITING Last administered on 11/29/16 20:58; Admin Dose 4 MG; Start 11/24/16 at 14:30 Metoclopramide HCl (Reglan) 5 mg Q4H PRN IV VOMITTING Last administered on 11/28 13:24; Admin Dose 5 MG; Start 11/26/16 at 18:00 Docusate Sodium (Colace) 100 mg BID PO Last administered on 12/06/16 08:50; Admin Dose 100 MG; Start 11/26/16 at 21:00 Polyethylene Glycol (Miralax) 17 gm DAILY PRN PO CONSTIPATION Last administered on 12/06/16 00:13; Admin Dose 17 GM; Start 11/27/16 at 17:00 Atorvastatin Calcium (Lipitor) 40 mg DAILY@21 PO Last administered on 12/05/16 21:17; Admin Dose 40 MG; Start 11/28/16 at 21:00 Lisinopril (Zestril) 20 mg DAILY PO Last administered on 12/06/16 08:51; Admin Dose 20 MG; Start 11/30/16 at 09:00 Mirtazapine (Remeron) 15 mg HS PO Last administered on 12/05/16 21:17; Admin Dose 15 MG; Start 11/29/16 at 21:00 Diphenhydramine HCl (Benadryl) 25 mg Q4H PRN IV PRURITUS; Start 12/01/16 at 09: 00 Ondansetron HCl (Zofran Inj) 4 mg Q6H PRN IV NAUSEA AND/OR VOMITING; Start 12/01 at 09:00 Naloxone HCl (Narcan) 0.2 mg Q2M PRN IV FOR RESP RATE 8 OR LESS; Start 12/01/16 at 09:00 Hydromorphone HCl (Dilaudid) 1.5 mg Q3 PRN IV PAIN Last administered on 11:45; Admin Dose 1.5 MG; Start 12/02/16 at 22:30 Enoxaparin Sodium (Lovenox) 30 mg DAILY SC Last administered on 12/06/16 08:53 ; Admin Dose 30 MG; Start 12/04/16 at 16:00 Gabapentin (Neurontin) 600 mg TID PO Last administered on 12/06/16 08:50; Admin Dose 600 MG; Start 12/05/16 at 13:00 Morphine Sulfate (Ms Contin (Er)) 15 mg BID PO Last administered on 12/06/16 08 :55; Admin Dose 15 MG; Start 12/05/16 at 09:00 ORALIA BLUE MD December 06, 2016 12:21
--- NOTE | 2016-12-06 12:28 | CONS ---
Date/Time of Note Date/Time of Note DATE: 12/06/16 TIME: 12:25 Assessment/Plan Assessment/Plan Additional Assessment/Plan 1. Preoperative evaluation prior to lower extremity vascular surgery.-negative troponin x 3. EKD 11/28 with no sig changes/single PVC. Relatively recent negative stress test and NL EF/no sig valve abnl by echo 09/2016. Now s/p RLE amputation POD - con't medical optimization - PAIN CONTROLLED. 2. Hypertension, labile, but currently under reasonable control. ? component of pain - stable, con't pain Rx - BP stable. 3. Dyslipidemia. 4. 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 5. Diabetes mellitus- on meds, keep euvolemic. 6. Lower extremity gangrenous changes, right lower extremity- post op 7. Status post left lower extremity above-knee amputation. 8. Anemia. 9.PVC-single on ecg Consultation Date/Type/Reason Admit Date/Time Nov 19, 2016 at 11:38 Type of Consultation: id Referring Provider: JOAQUINA MCKEON MD 24 HR Interval Summary Free Text/Dictation No acute change, BP stable - pain controlled. ROS: No fever, no chills, no nausea, no vomiting, no diarrhea/constipation No recent weight changes No chest pain, no PND, no orthopnea No dizziness, blurred vision No thirst, no heat or cold intolerance (pain controlled) Exam/Review of Systems Vital Signs Vitals Vital Signs Date Time Temp Pulse Resp B/P Pulse Ox O2 Delivery O2 Flow Rate FiO2 12/06/16 08:40 97.8 76 17 104/56 95 12/04/16 07:44 Room Air Intake and Output 12/05/16 12/05/16 12/06/16 15:00 23:00 07:00 Intake Total 840 ml 340 ml Output Total 900 ml 1400 ml Balance -60 ml -1060 ml Exam General: WN/WD/NAD, AOx 2-3 HEENT: Unicetric/atraumatic/EOMI (follow commands) NECK: JVD elevated, no thyromegaly Lymph: no lymphadenopathy HEART: regular with no S3, II/ systolic murmur at apex LUNGS: Coarse sounds ABD: soft, NT, ND, +BS : Intact Neuro: non focal SKIN: chronic changes EXT: trace edema, post op Results Result Diagram: 12/04/16 0440 12/04/16 0440 Results 24 hrs Laboratory Tests Test 12/05/16 17:30 12/05/16 21:24 12/06/16 02:23 12/06/16 07:53 Bedside Glucose 172 313 H 122 118 Test 12/06/16 12:16 Bedside Glucose 163 Medications Medications Current Medications Diagnostic Test (Pha) (Accu-Chek) 1 ea 02 XX ; Start 11/20/16 at 02:00 Oxycodone/ Acetaminophen (Percocet (5/ 325)) 1 tab Q4H PRN PO PAIN Last administered on 12/01/16 17:36; Admin Dose 1 TAB; Start 11/19/16 at 18:30 Oxycodone/ Acetaminophen (Percocet (5/ 325)) 2 tab Q4H PRN PO PAIN LEVEL 6-10 Last administered on 12/06/16 02:27; Admin Dose 2 TAB; Start 11/19/16 at 21:30 Miscellaneous Information 1 ea NOTE XX ; Start 11/20/16 at 08:00 Glucose (Glutose) 15 gm Q15M PRN PO DECREASED GLUCOSE; Start 11/20/16 at 08:00 Glucose (Glutose) 22.5 gm Q15M PRN PO DECREASED GLUCOSE; Start 11/20/16 at 08: 00 Dextrose (D50w Syringe) 25 ml Q15M PRN IV DECREASED GLUCOSE; Start 11/20/16 at 08:00 Dextrose (D50w Syringe) 50 ml Q15M PRN IV DECREASED GLUCOSE; Start 11/20/16 at 08:00 Glucagon (Glucagen) 1 mg Q15M PRN IM DECREASED GLUCOSE; Start 11/20/16 at 08:00 Glucose (Glutose) 15 gm Q15M PRN BUCCAL DECREASED GLUCOSE; Start 11/20/16 at 08 :00 Hydralazine HCl (Apresoline) 10 mg Q6H PRN IV SBP>160 Last administered on 11/28 19:37; Admin Dose 10 MG; Start 11/20/16 at 16:30 Insulin Glargine (Lantus) 6 unit DAILY@20 SC Last administered on 12/05/16 21: 28; Admin Dose 6 UNIT; Start 11/20/16 at 20:00 Cholecalciferol (Vitamin D) 2,000 unit DAILY PO Last administered on 12/06/16 08:51; Admin Dose 2,000 UNIT; Start 11/21/16 at 11:30 Famotidine (Pepcid) 20 mg BID PO Last administered on 12/06/16 08:50; Admin Dose 20 MG; Start 11/21/16 at 21:00 Clopidogrel Bisulfate (plaVIX) 75 mg DAILY PO Last administered on 12/06/16 08: 50; Admin Dose 75 MG; Start 11/22/16 at 12:30 Ondansetron HCl (Zofran Inj) 4 mg Q4H PRN IV NAUSEA AND/OR VOMITING Last administered on 11/29/16 20:58; Admin Dose 4 MG; Start 11/24/16 at 14:30 Metoclopramide HCl (Reglan) 5 mg Q4H PRN IV VOMITTING Last administered on 11/28 13:24; Admin Dose 5 MG; Start 11/26/16 at 18:00 Docusate Sodium (Colace) 100 mg BID PO Last administered on 12/06/16 08:50; Admin Dose 100 MG; Start 11/26/16 at 21:00 Polyethylene Glycol (Miralax) 17 gm DAILY PRN PO CONSTIPATION Last administered on 12/06/16 00:13; Admin Dose 17 GM; Start 11/27/16 at 17:00 Atorvastatin Calcium (Lipitor) 40 mg DAILY@21 PO Last administered on 12/05/16 21:17; Admin Dose 40 MG; Start 11/28/16 at 21:00 Lisinopril (Zestril) 20 mg DAILY PO Last administered on 12/06/16 08:51; Admin Dose 20 MG; Start 11/30/16 at 09:00 Mirtazapine (Remeron) 15 mg HS PO Last administered on 12/05/16 21:17; Admin Dose 15 MG; Start 11/29/16 at 21:00 Diphenhydramine HCl (Benadryl) 25 mg Q4H PRN IV PRURITUS; Start 12/01/16 at 09: 00 Ondansetron HCl (Zofran Inj) 4 mg Q6H PRN IV NAUSEA AND/OR VOMITING; Start 12/01 at 09:00 Naloxone HCl (Narcan) 0.2 mg Q2M PRN IV FOR RESP RATE 8 OR LESS; Start 12/01/16 at 09:00 Hydromorphone HCl (Dilaudid) 1.5 mg Q3 PRN IV PAIN Last administered on 11:45; Admin Dose 1.5 MG; Start 12/02/16 at 22:30 Enoxaparin Sodium (Lovenox) 30 mg DAILY SC Last administered on 12/06/16 08:53 ; Admin Dose 30 MG; Start 12/04/16 at 16:00 Gabapentin (Neurontin) 600 mg TID PO Last administered on 12/06/16 12:18; Admin Dose 600 MG; Start 12/05/16 at 13:00 Morphine Sulfate (Ms Contin (Er)) 15 mg BID PO Last administered on 12/06/16 08 :55; Admin Dose 15 MG; Start 12/05/16 at 09:00 APRYL IVY MD December 06, 2016 12:28
--- NOTE | 2016-12-06 15:57 | CONS ---
Date/Time of Note Date/Time of Note DATE: 12/06/16 TIME: 15:56 Assessment/Plan Assessment/Plan Chief Complaint/Hosp Course SUBJECTIVE: No events overnight, nad, no fevers PHYSICAL EXAMINATION: GENERAL: Well-developed, middle-aged woman who is awake, in no distress. HEENT: Head atraumatic, normocephalic. Sclerae anicteric. Buccal mucosa pink. NECK: Supple. CHEST: Rise symmetrical. Breath sounds clear. HEART: S1, S2. ABDOMEN: Soft, bowel tones present. EXTREMITIES: With right lower extremity dressing intact. ASSESSMENT: 1. Severe peripheral arterial disease status post right below-knee amputation 2. History of Clostridium difficile colitis. 3. Diabetes. 4. History of left above-knee amputation. PLAN: The patient remains stable, off abx, will monitor wound for infection, f/ u vascular rec-s. staff Problems: Consultation Date/Type/Reason Admit Date/Time Nov 19, 2016 at 11:38 Type of Consultation: id Referring Provider: JOAQUINA MCKEON MD Exam/Review of Systems Vital Signs Vitals Vital Signs Date Time Temp Pulse Resp B/P Pulse Ox O2 Delivery O2 Flow Rate FiO2 12/06/16 08:40 97.8 76 17 104/56 95 12/04/16 07:44 Room Air Intake and Output 12/05/16 12/05/16 12/06/16 15:00 23:00 07:00 Intake Total 840 ml 340 ml Output Total 900 ml 1400 ml Balance -60 ml -1060 ml Results Result Diagram: 12/04/16 0440 12/04/16 0440 Results 24 hrs Laboratory Tests Test 12/05/16 17:30 12/05/16 21:24 12/06/16 02:23 12/06/16 07:53 Bedside Glucose 172 313 H 122 118 Test 12/06/16 12:16 Bedside Glucose 163 Medications Medications Current Medications Diagnostic Test (Pha) (Accu-Chek) 1 ea 02 XX ; Start 11/20/16 at 02:00 Oxycodone/ Acetaminophen (Percocet (5/ 325)) 1 tab Q4H PRN PO PAIN Last administered on 12/01/16t 17:36; Admin Dose 1 TAB; Start 11/19/16 at 18:30 Oxycodone/ Acetaminophen (Percocet (5/ 325)) 2 tab Q4H PRN PO PAIN LEVEL 6-10 Last administered on 12/06/16 02:27; Admin Dose 2 TAB; Start 11/19/16 at 21:30 Miscellaneous Information 1 ea NOTE XX ; Start 11/20/16 at 08:00 Glucose (Glutose) 15 gm Q15M PRN PO DECREASED GLUCOSE; Start 11/20/16 at 08:00 Glucose (Glutose) 22.5 gm Q15M PRN PO DECREASED GLUCOSE; Start 11/20/16 at 08: 00 Dextrose (D50w Syringe) 25 ml Q15M PRN IV DECREASED GLUCOSE; Start 11/20/16 at 08:00 Dextrose (D50w Syringe) 50 ml Q15M PRN IV DECREASED GLUCOSE; Start 11/20/16 at 08:00 Glucagon (Glucagen) 1 mg Q15M PRN IM DECREASED GLUCOSE; Start 11/20/16 at 08:00 Glucose (Glutose) 15 gm Q15M PRN BUCCAL DECREASED GLUCOSE; Start 11/20/16 at 08 :00 Hydralazine HCl (Apresoline) 10 mg Q6H PRN IV SBP>160 Last administered on 11/28 19:37; Admin Dose 10 MG; Start 11/20/16 at 16:30 Insulin Glargine (Lantus) 6 unit DAILY@20 SC Last administered on 12/05/16 21: 28; Admin Dose 6 UNIT; Start 11/20/16 at 20:00 Cholecalciferol (Vitamin D) 2,000 unit DAILY PO Last administered on 12/06/16 08:51; Admin Dose 2,000 UNIT; Start 11/21/16 at 11:30 Famotidine (Pepcid) 20 mg BID PO Last administered on 12/06/16 08:50; Admin Dose 20 MG; Start 11/21/16 at 21:00 Clopidogrel Bisulfate (plaVIX) 75 mg DAILY PO Last administered on 12/06/16 08: 50; Admin Dose 75 MG; Start 11/22/16 at 12:30 Ondansetron HCl (Zofran Inj) 4 mg Q4H PRN IV NAUSEA AND/OR VOMITING Last administered on 11/29/16 20:58; Admin Dose 4 MG; Start 11/24/16 at 14:30 Metoclopramide HCl (Reglan) 5 mg Q4H PRN IV VOMITTING Last administered on 11/28 13:24; Admin Dose 5 MG; Start 11/26/16 at 18:00 Docusate Sodium (Colace) 100 mg BID PO Last administered on 12/06/16 08:50; Admin Dose 100 MG; Start 11/26/16 at 21:00 Polyethylene Glycol (Miralax) 17 gm DAILY PRN PO CONSTIPATION Last administered on 12/06/16 00:13; Admin Dose 17 GM; Start 11/27/16 at 17:00 Atorvastatin Calcium (Lipitor) 40 mg DAILY@21 PO Last administered on 12/05/16 21:17; Admin Dose 40 MG; Start 11/28/16 at 21:00 Lisinopril (Zestril) 20 mg DAILY PO Last administered on 12/06/16 08:51; Admin Dose 20 MG; Start 11/30/16 at 09:00 Mirtazapine (Remeron) 15 mg HS PO Last administered on 12/05/16 21:17; Admin Dose 15 MG; Start 11/29/16 at 21:00 Diphenhydramine HCl (Benadryl) 25 mg Q4H PRN IV PRURITUS; Start 12/01/16 at 09: 00 Ondansetron HCl (Zofran Inj) 4 mg Q6H PRN IV NAUSEA AND/OR VOMITING; Start 12/01 at 09:00 Naloxone HCl (Narcan) 0.2 mg Q2M PRN IV FOR RESP RATE 8 OR LESS; Start 12/01/16 at 09:00 Hydromorphone HCl (Dilaudid) 1.5 mg Q3 PRN IV PAIN Last administered on 15:06; Admin Dose 1.5 MG; Start 12/02/16 at 22:30 Enoxaparin Sodium (Lovenox) 30 mg DAILY SC Last administered on 12/06/16 08:53 ; Admin Dose 30 MG; Start 12/04/16 at 16:00 Gabapentin (Neurontin) 600 mg TID PO Last administered on 12/06/16 12:18; Admin Dose 600 MG; Start 12/05/16 at 13:00 Morphine Sulfate (Ms Contin (Er)) 15 mg BID PO Last administered on 12/06/16 08 :55; Admin Dose 15 MG; Start 12/05/16 at 09:00 KATHERYN RINALDI NP December 06, 2016 15:56
[2016-12-06] MEDS: INSULIN GLARGINE [LANtus] 3 ML PEN SC SCH (20:03)
[2016-12-06 20:14] VITALS: BP 110/60; RESP 18
[2016-12-06] MEDS: MIRTAZAPINE 15 MG TAB PO SCH (20:52)
[2016-12-06] MEDS: ATORVASTATIN 40 MG TAB PO SCH (20:52)
--- NOTE | 2016-12-06 22:01 | PN ---
Date/Time of Note Date/Time of Note DATE: 12/06/16 TIME: 22:01 Assessment/Plan Lines/Catheters IV Catheter Type (from Nrsg): Saline Lock Vee in Place (from Nrsg): Yes Assessment/Plan Chief Complaint/Hosp Course -Bilateral lower extremity atherosclerosis with gangrene: S/P BKA -Patient is cleared from Vascular surgery standpoint for discharge planning -Continue with Concrete Crafts[employer] and PT/OT OOB -Optimize vascular status (BP meds, diet, nutrition, exercise, sugar control, antiplatelets). -Discussed findings, plan and management with the patient, she understands with a certified medical coding technician -Thank you for allowing us to partake in the care of your patient. Please call with any questions. Problems: Subjective 24 Hr Interval Summary some incisional tenderness Exam/Review of Systems Vital Signs Vitals Vital Signs Date Time Temp Pulse Resp B/P Pulse Ox O2 Delivery O2 Flow Rate FiO2 12/06/16 20:14 98.8 83 18 110/60 97 12/04/16 07:44 Room Air Intake and Output 12/05/16 12/05/16 12/06/16 15:00 23:00 07:00 Intake Total 840 ml 340 ml Output Total 900 ml 1400 ml Balance -60 ml -1060 ml Exam Free Text/Dictation GENERAL: Alert and oriented x3. PULMONARY: Clear to auscultation bilaterally. CARDIOVASCULAR: S1, S2 present. ABDOMEN: Soft, nontender, nondistended. Bowel sounds positive. EXTREMITIES: Right lower extremity: Palpable femoral pulse, Motor, sensory intact. Capillary refill 2-3 seconds at the BKA.stump. incision clean and dry, some incisional tenderness Results Result Diagram: 12/04/16 0440 12/04/16 0440 JOAQUINA MCKEON MD December 06, 2016 22:01
[2016-12-07] MEDS: ACCU-CHEK XX SCH (01:48)
[2016-12-07] MEDS: HYDROmorphONE 2 MG/ML SYG IV PRN ×4 (01:50→13:55)
[2016-12-07 07:40] VITALS: BP 95/50; RESP 18
[2016-12-07] MEDS: INSULIN ASPART [NOVOLOG] 3 ML PEN SC SCH ×7 (08:00→21:00)
[2016-12-07] MEDS: LISINOPRIL 20 MG TAB PO SCH (09:00)
[2016-12-07] MEDS: GABAPENTIN 300 MG CAP PO SCH ×3 (09:05→19:56)
[2016-12-07] MEDS: morphine (ER) 15 MG TAB PO SCH ×2 (09:06→20:03)
[2016-12-07] MEDS: CLOPIDOGREL 75 MG TAB PO SCH (09:06)
[2016-12-07] MEDS: DOCUSATE SODIUM 100 MG CAP PO SCH ×2 (09:06→19:56)
[2016-12-07] MEDS: FAMOTIDINE 20 MG TAB PO SCH ×2 (09:06→20:04)
[2016-12-07] MEDS: CHOLECALCIFEROL 2,000 UNIT CAP PO SCH (09:06)
[2016-12-07] MEDS: ENOXAPARIN 30 MG/0.3 ML SYG SC SCH (09:09)
--- NOTE | 2016-12-07 11:36 | PN ---
Date/Time of Note Date/Time of Note DATE: 12/07/16 TIME: 11:31 Assessment/Plan VTE Prophylaxis VTE Prophylaxis Intervention: LMWH Lines/Catheters IV Catheter Type (from Nrsg): Saline Lock Urinary Cath still in place: Yes Reason Cath still needed: skin wounds contaminated by urine Assessment/Plan Chief Complaint/Hosp Course Subjective: Pain appears controlled. No distress. Does not like hospital food. Still crying due to her present situation. Objective: Vital signs stable Physical exam No pallor Reg, + sm no r/g CTAB Bs + nt nd, no r/r/g Lt hip disarticulation status. Rt BKA status. Assessment and plan 1. Rt foot gangrene. Sp BKA. Stable cont wound care. Once wound healed, consider prosthesis/PT. 2. Rt BKA status. Treat stress anxiety. Watch for phantom limb syndrome. 3. Debility. Transfer to snf when ok w vascular. 4. Chr PAD; ho fem-pop procedure, cont risk factor modification 5. DM/htn/dl/metabolic syndrome 6. Ho C diff 7. Anemia stable no evidence of bleed 8. Subclinical hyperthyroidism Problems: Exam/Review of Systems Vital Signs Vitals Vital Signs Date Time Temp Pulse Resp B/P Pulse Ox O2 Delivery O2 Flow Rate FiO2 12/07/16 07:40 99.2 18 95/50 94 12/06/16 20:14 83 12/04/16 07:44 Room Air Intake and Output 12/06/16 12/06/16 12/07/16 15:00 23:00 07:00 Intake Total 820 ml 480 ml Output Total 700 ml 1200 ml Balance 120 ml -720 ml Results Result Diagram: 12/04/16 0440 12/04/160 Results 24 hrs Laboratory Tests Test 12/06/16 12:16 12/06/16 17:08 12/06/16 20:00 12/06/16 20:51 Bedside Glucose 163 207 174 149 Test 12/07/16 08:12 Bedside Glucose 89 Medications Medications Current Medications Diagnostic Test (Pha) (Accu-Chek) 1 ea 02 XX ; Start 11/20/16 at 02:00 Oxycodone/ Acetaminophen (Percocet (5/ 325)) 1 tab Q4H PRN PO PAIN Last administered on 12/01/16t 17:36; Admin Dose 1 TAB; Start 11/19/16 at 18:30 Oxycodone/ Acetaminophen (Percocet (5/ 325)) 2 tab Q4H PRN PO PAIN LEVEL 6-10 Last administered on 12/06/16 18:49; Admin Dose 2 TAB; Start 11/19/16 at 21:30 Miscellaneous Information 1 ea NOTE XX ; Start 11/20/16 at 08:00 Glucose (Glutose) 15 gm Q15M PRN PO DECREASED GLUCOSE; Start 11/20/16 at 08:00 Glucose (Glutose) 22.5 gm Q15M PRN PO DECREASED GLUCOSE; Start 11/20/16 at 08: 00 Dextrose (D50w Syringe) 25 ml Q15M PRN IV DECREASED GLUCOSE; Start 11/20/16 at 08:00 Dextrose (D50w Syringe) 50 ml Q15M PRN IV DECREASED GLUCOSE; Start 11/20/16 at 08:00 Glucagon (Glucagen) 1 mg Q15M PRN IM DECREASED GLUCOSE; Start 11/20/16 at 08:00 Glucose (Glutose) 15 gm Q15M PRN BUCCAL DECREASED GLUCOSE; Start 11/20/16 at 08 :00 Hydralazine HCl (Apresoline) 10 mg Q6H PRN IV SBP>160 Last administered on 11/28 19:37; Admin Dose 10 MG; Start 11/20/16 at 16:30 Insulin Glargine (Lantus) 6 unit DAILY@20 SC Last administered on 12/06/16 20: 03; Admin Dose 6 UNIT; Start 11/20/16 at 20:00 Cholecalciferol (Vitamin D) 2,000 unit DAILY PO Last administered on 12/07/16 09:06; Admin Dose 2,000 UNIT; Start 11/21/16 at 11:30 Clopidogrel Bisulfate (plaVIX) 75 mg DAILY PO Last administered on 12/07/16 09: 06; Admin Dose 75 MG; Start 11/22/16 at 12:30 Ondansetron HCl (Zofran Inj) 4 mg Q4H PRN IV NAUSEA AND/OR VOMITING Last administered on 11/29/16 20:58; Admin Dose 4 MG; Start 11/24/16 at 14:30 Polyethylene Glycol (Miralax) 17 gm DAILY PRN PO CONSTIPATION Last administered on 12/06/16 00:13; Admin Dose 17 GM; Start 11/27/16 at 17:00 Atorvastatin Calcium (Lipitor) 40 mg DAILY@21 PO Last administered on 12/06/16 20:52; Admin Dose 40 MG; Start 11/28/16 at 21:00 Mirtazapine (Remeron) 15 mg HS PO Last administered on 12/06/16 20:52; Admin Dose 15 MG; Start 11/29/16 at 21:00 Diphenhydramine HCl (Benadryl) 25 mg Q4H PRN IV PRURITUS; Start 12/01/16 at 09: 00 Naloxone HCl (Narcan) 0.2 mg Q2M PRN IV FOR RESP RATE 8 OR LESS; Start 12/01/16 at 09:00 Hydromorphone HCl (Dilaudid) 1.5 mg Q3 PRN IV PAIN Last administered on 10:36; Admin Dose 1.5 MG; Start 12/02/16 at 22:30 Enoxaparin Sodium (Lovenox) 30 mg DAILY SC Last administered on 12/07/16 09:09 ; Admin Dose 30 MG; Start 12/04/16 at 16:00 Gabapentin (Neurontin) 600 mg TID PO Last administered on 12/07/16 09:05; Admin Dose 600 MG; Start 12/05/16 at 13:00 Morphine Sulfate (Ms Contin (Er)) 15 mg BID PO Last administered on 12/07/16 09 :06; Admin Dose 15 MG; Start 12/05/16 at 09:00 Docusate Sodium (Colace) 100 mg HS PO ; Start 12/07/16 at 21:00 Famotidine (Pepcid) 20 mg HS PO ; Start 12/07/16 at 21:00 Lisinopril (Zestril) 5 mg DAILY PO ; Start 12/08/16 at 09:00 Ondansetron HCl (Zofran Inj) 4 mg Q4 PRN IV NAUSEA AND/OR VOMITING; Start at 13:00 Lactobacillus Acidophilus/ Rhamnosus (Culturelle) 1 cap BID PO ; Start 12/07/16 at 11:00 GASTON CELAYA MD December 07, 2016 11:36
--- NOTE | 2016-12-07 12:19 | CONS ---
Date/Time of Note Date/Time of Note DATE: 12/07/16 TIME: 12:18 Assessment/Plan Assessment/Plan Chief Complaint/Hosp Course SUBJECTIVE: No events overnight, alert, feels good, no n/v/d, no fevers PHYSICAL EXAMINATION: GENERAL: Well-developed, middle-aged woman who is awake, in no distress. HEENT: Head atraumatic, normocephalic. Sclerae anicteric. Buccal mucosa pink. NECK: Supple. CHEST: Rise symmetrical. Breath sounds clear. HEART: S1, S2. ABDOMEN: Soft, bowel tones present. EXTREMITIES: With right lower extremity dressing intact. ASSESSMENT: 1. Severe peripheral arterial disease status post right below-knee amputation 2. History of Clostridium difficile colitis. 3. Diabetes. 4. History of left above-knee amputation. PLAN: The patient remains stable, off abx, will monitor wound for infection, f/ u vascular rec-s. DW staff Problems: Consultation Date/Type/Reason Admit Date/Time Nov 19, 2016 at 11:38 Type of Consultation: id Referring Provider: JOAQUINA MCKEON MD Exam/Review of Systems Vital Signs Vitals Vital Signs Date Time Temp Pulse Resp B/P Pulse Ox O2 Delivery O2 Flow Rate FiO2 12/07/16 07:40 99.2 18 95/50 94 12/06/16 20:14 83 12/04/16 07:44 Room Air Intake and Output 12/06/16 12/06/16 12/07/16 15:00 23:00 07:00 Intake Total 820 ml 480 ml Output Total 700 ml 1200 ml Balance 120 ml -720 ml Results Result Diagram: 12/04/16 0440 12/04/16 0440 Results 24 hrs Laboratory Tests Test 12/06/16 17:08 12/06/16 20:00 12/06/16 20:51 12/07/16 08:12 Bedside Glucose 207 174 149 89 Medications Medications Current Medications Diagnostic Test (Pha) (Accu-Chek) 1 ea 02 XX ; Start 11/20/16 at 02:00 Oxycodone/ Acetaminophen (Percocet (5/ 325)) 1 tab Q4H PRN PO PAIN Last administered on 12/01/16t 17:36; Admin Dose 1 TAB; Start 11/19/16 at 18:30 Oxycodone/ Acetaminophen (Percocet (5/ 325)) 2 tab Q4H PRN PO PAIN LEVEL 6-10 Last administered on 12/06/16 18:49; Admin Dose 2 TAB; Start 11/19/16 at 21:30 Miscellaneous Information 1 ea NOTE XX ; Start 11/20/16 at 08:00 Glucose (Glutose) 15 gm Q15M PRN PO DECREASED GLUCOSE; Start 11/20/16 at 08:00 Glucose (Glutose) 22.5 gm Q15M PRN PO DECREASED GLUCOSE; Start 11/20/16 at 08: 00 Dextrose (D50w Syringe) 25 ml Q15M PRN IV DECREASED GLUCOSE; Start 11/20/16 at 08:00 Dextrose (D50w Syringe) 50 ml Q15M PRN IV DECREASED GLUCOSE; Start 11/20/16 at 08:00 Glucagon (Glucagen) 1 mg Q15M PRN IM DECREASED GLUCOSE; Start 11/20/16 at 08:00 Glucose (Glutose) 15 gm Q15M PRN BUCCAL DECREASED GLUCOSE; Start 11/20/16 at 08 :00 Hydralazine HCl (Apresoline) 10 mg Q6H PRN IV SBP>160 Last administered on 11/28 19:37; Admin Dose 10 MG; Start 11/20/16 at 16:30 Insulin Glargine (Lantus) 6 unit DAILY@20 SC Last administered on 12/06/16 20: 03; Admin Dose 6 UNIT; Start 11/20/16 at 20:00 Cholecalciferol (Vitamin D) 2,000 unit DAILY PO Last administered on 12/07/16 09:06; Admin Dose 2,000 UNIT; Start 11/21/16 at 11:30 Clopidogrel Bisulfate (plaVIX) 75 mg DAILY PO Last administered on 12/07/16 09: 06; Admin Dose 75 MG; Start 11/22/16 at 12:30 Ondansetron HCl (Zofran Inj) 4 mg Q4H PRN IV NAUSEA AND/OR VOMITING Last administered on 11/29/16 20:58; Admin Dose 4 MG; Start 11/24/16 at 14:30 Polyethylene Glycol (Miralax) 17 gm DAILY PRN PO CONSTIPATION Last administered on 12/06/16 00:13; Admin Dose 17 GM; Start 11/27/16 at 17:00 Atorvastatin Calcium (Lipitor) 40 mg DAILY@21 PO Last administered on 12/06/16 20:52; Admin Dose 40 MG; Start 11/28/16 at 21:00 Mirtazapine (Remeron) 15 mg HS PO Last administered on 12/06/16 20:52; Admin Dose 15 MG; Start 11/29/16 at 21:00 Diphenhydramine HCl (Benadryl) 25 mg Q4H PRN IV PRURITUS; Start 12/01/16 at 09: 00 Naloxone HCl (Narcan) 0.2 mg Q2M PRN IV FOR RESP RATE 8 OR LESS; Start 12/01/16 at 09:00 Hydromorphone HCl (Dilaudid) 1.5 mg Q3 PRN IV PAIN Last administered on 10:36; Admin Dose 1.5 MG; Start 12/02/16 at 22:30 Enoxaparin Sodium (Lovenox) 30 mg DAILY SC Last administered on 12/07/16 09:09 ; Admin Dose 30 MG; Start 12/04/16 at 16:00 Gabapentin (Neurontin) 600 mg TID PO Last administered on 12/07/16 09:05; Admin Dose 600 MG; Start 12/05/16 at 13:00 Morphine Sulfate (Ms Contin (Er)) 15 mg BID PO Last administered on 12/07/16 09 :06; Admin Dose 15 MG; Start 12/05/16 at 09:00 Docusate Sodium (Colace) 100 mg HS PO ; Start 12/07/16 at 21:00 Famotidine (Pepcid) 20 mg HS PO ; Start 12/07/16 at 21:00 Lisinopril (Zestril) 5 mg DAILY PO ; Start 12/08/16 at 09:00 Ondansetron HCl (Zofran Inj) 4 mg Q4 PRN IV NAUSEA AND/OR VOMITING; Start at 13:00 Lactobacillus Acidophilus/ Rhamnosus (Culturelle) 1 cap BID PO ; Start 12/07/16 at 11:00 Multivitamins Therapeutic (Theragran) 1 tab DAILY PO ; Start 12/07/16 at 12:00 KATHERYN RINALDI NP December 07, 2016 12:19
[2016-12-07] MEDS: MULTIVITAMINS THERAPEUTIC TAB PO SCH (12:28)
[2016-12-07] MEDS: LACTOBACILLUS RHAMNOSUS CAP PO SCH ×2 (12:28→20:03)
[2016-12-07] MEDS ORDERED: ONDANSETRON 4 MG INJ IV PRN (13:00)
--- NOTE | 2016-12-07 18:01 | CONS ---
Date/Time of Note Date/Time of Note DATE: 12/07/16 TIME: 17:59 Assessment/Plan Assessment/Plan Chief Complaint/Hosp Course IMPRESSION: 1. Preoperative evaluation prior to lower extremity vascular surgery.-negative troponin x 3. EKD 11/28 with no sig changes/single PVC. Relatively recent negative stress test and NL EF/no sig valve abnl by echo 09/2016. Now s/p RLE amputation post-op 2. Hypertension, labile, but currently under reasonable control. ? component of pain 3. Dyslipidemia. 4. Peripheral arterial disease, status post left lower extremity above- knee amputation and right lower extremity with gangrenous changes, status post prior GRINDER TENDER. 5. Diabetes mellitus. 6. Lower extremity gangrenous changes, right lower extremity. 7. Status post left lower extremity above-knee amputation. 8. Anemia. 9.PVC-single on ecg Recc: -Continue plavix/zestril/statin -Local wound care/abx's -Pain control -Follow volume status closely Problems: Consultation Date/Type/Reason Admit Date/Time Nov 19, 2016 at 11:38 Initial Consult Date 11/28/2016 Type of Consultation: Cardiology Reason for Consultation HTN Referring Provider: JOAQUINA MCKEON MD Exam/Review of Systems Vital Signs Vitals Vital Signs Date Time Temp Pulse Resp B/P Pulse Ox O2 Delivery O2 Flow Rate FiO2 12/07/16 07:40 99.2 18 95/50 94 12/06/16 20:14 83 12/04/16 07:44 Room Air Intake and Output 12/06/16 12/06/16 12/07/16 15:00 23:00 07:00 Intake Total 820 ml 480 ml Output Total 700 ml 1200 ml Balance 120 ml -720 ml Exam Review of Systems: CONSTITUTIONAL: No fevers, chills. PULMONARY: No sob CARDIOVASCULAR: No chest pain/palpitations GASTROINTESTINAL: No nausea/vomiting. GENITOURINARY: No hematuria/dysuria. MUSCULOSKELETAL: No myagias/arthalgias. PSYCHIATRIC: The patient denies depression. NEUROLOGIC: No weakness Constitutional: alert Psych: no complaints Head: normocephalic ENMT: mucosa pink and moist Neck: jvd (9 cm water), supple Respiratory: diminished breath sounds (at bases/B) Cardiovascular: regular rate and rhythm Gastrointestinal: non-tender, soft Musculoskeletal: muscle tone Extremities: edema (none) Neurological: other (No focal deficits) Results Result Diagram: 12/04/16 0440 12/04/16 0440 Results 24 hrs Laboratory Tests Test 12/06/16 20:00 12/06/16 20:51 12/07/16 08:12 12/07/16 12:30 Bedside Glucose 174 149 89 195 Test 12/07/16 17:09 Bedside Glucose 151 Medications Medications Current Medications Diagnostic Test (Pha) (Accu-Chek) 1 ea 02 XX ; Start 11/20/16 at 02:00 Miscellaneous Information 1 ea NOTE XX ; Start 11/20/16 at 08:00 Glucose (Glutose) 15 gm Q15M PRN PO DECREASED GLUCOSE; Start 11/20/16 at 08:00 Glucose (Glutose) 22.5 gm Q15M PRN PO DECREASED GLUCOSE; Start 11/20/16 at 08: 00 Dextrose (D50w Syringe) 25 ml Q15M PRN IV DECREASED GLUCOSE; Start 11/20/16 at 08:00 Dextrose (D50w Syringe) 50 ml Q15M PRN IV DECREASED GLUCOSE; Start 11/20/16 at 08:00 Glucagon (Glucagen) 1 mg Q15M PRN IM DECREASED GLUCOSE; Start 11/20/16 at 08:00 Glucose (Glutose) 15 gm Q15M PRN BUCCAL DECREASED GLUCOSE; Start 11/20/16 at 08 :00 Hydralazine HCl (Apresoline) 10 mg Q6H PRN IV SBP>160 Last administered on 11/28 19:37; Admin Dose 10 MG; Start 11/20/16 at 16:30 Insulin Glargine (Lantus) 6 unit DAILY@20 SC Last administered on 12/06/16 20: 03; Admin Dose 6 UNIT; Start 11/20/16 at 20:00 Cholecalciferol (Vitamin D) 2,000 unit DAILY PO Last administered on 12/07/16 09:06; Admin Dose 2,000 UNIT; Start 11/21/16 at 11:30 Clopidogrel Bisulfate (plaVIX) 75 mg DAILY PO Last administered on 12/07/16 09: 06; Admin Dose 75 MG; Start 11/22/16 at 12:30 Ondansetron HCl (Zofran Inj) 4 mg Q4H PRN IV NAUSEA AND/OR VOMITING Last administered on 11/29/16 20:58; Admin Dose 4 MG; Start 11/24/16 at 14:30 Polyethylene Glycol (Miralax) 17 gm DAILY PRN PO CONSTIPATION Last administered on 12/06/16 00:13; Admin Dose 17 GM; Start 11/27/16 at 17:00 Atorvastatin Calcium (Lipitor) 40 mg DAILY@21 PO Last administered on 12/06/16 20:52; Admin Dose 40 MG; Start 11/28/16 at 21:00 Mirtazapine (Remeron) 15 mg HS PO Last administered on 12/06/16 20:52; Admin Dose 15 MG; Start 11/29/16 at 21:00 Diphenhydramine HCl (Benadryl) 25 mg Q4H PRN IV PRURITUS; Start 12/01/16 at 09: 00 Naloxone HCl (Narcan) 0.2 mg Q2M PRN IV FOR RESP RATE 8 OR LESS; Start 12/01/16 at 09:00 Hydromorphone HCl (Dilaudid) 1.5 mg Q3 PRN IV PAIN Last administered on 13:55; Admin Dose 1.5 MG; Start 12/02/16 at 22:30 Enoxaparin Sodium (Lovenox) 30 mg DAILY SC Last administered on 12/07/16 09:09 ; Admin Dose 30 MG; Start 12/04/16 at 16:00 Gabapentin (Neurontin) 600 mg TID PO Last administered on 12/07/16 12:28; Admin Dose 600 MG; Start 12/05/16 at 13:00 Morphine Sulfate (Ms Contin (Er)) 15 mg BID PO Last administered on 12/07/16 09 :06; Admin Dose 15 MG; Start 12/05/16 at 09:00 Docusate Sodium (Colace) 100 mg HS PO ; Start 12/07/16 at 21:00 Famotidine (Pepcid) 20 mg HS PO ; Start 12/07/16 at 21:00 Lisinopril (Zestril) 5 mg DAILY PO ; Start 12/08/16 at 09:00 Ondansetron HCl (Zofran Inj) 4 mg Q4 PRN IV NAUSEA AND/OR VOMITING; Start at 13:00 Lactobacillus Acidophilus/ Rhamnosus (Culturelle) 1 cap BID PO Last administered on 12/07/16 12:28; Admin Dose 1 CAP; Start 12/07/16 at 11:00 Multivitamins Therapeutic (Theragran) 1 tab DAILY PO Last administered on 12:28; Admin Dose 1 TAB; Start 12/07/16 at 12:00 Hydromorphone HCl (Dilaudid) 2 mg Q3H PRN PO MODERATE PAIN LEVEL 4-6; Start 12/07/16 at 16:30 KAYLEIGH NORIEGA December 07, 2016 18:01
[2016-12-07] MEDS: HYDROmorphONE 2 MG TAB PO PRN ×2 (18:15→21:10)
[2016-12-07] MEDS: ATORVASTATIN 40 MG TAB PO SCH (19:56)
[2016-12-07] MEDS: MIRTAZAPINE 15 MG TAB PO SCH (19:56)
[2016-12-07] MEDS: INSULIN GLARGINE [LANtus] 3 ML PEN SC SCH (20:03)
[2016-12-07 20:23] VITALS: BP 133/63; RESP 18
[2016-12-08] MEDS: ACCU-CHEK XX SCH (01:42)
[2016-12-08 06:33] LABS: ADD SCAN DIFF NO
[2016-12-08 06:41] LABS: BASOPHILS % 0.1 % (0.0-2.0); EOSINOPHILS # 0.3 10^3/ul (0.0-0.5); EOSINOPHILS % 4.2 % (0.0-7.0); HEMATOCRIT 29.3 % (37.0-47.0); HEMOGLOBIN 9.6 g/dl (12.0-16.0); LYMPHOCYTES # 1.6 10^3/ul (0.8-2.9); MEAN CORPUSCULAR HEMOGLOBIN 30.3 pg (29.0-33.0); MEAN CORPUSCULAR HGB CONC 32.8 g/dl (32.0-37.0); MEAN CORPUSCULAR VOLUME 92.4 fl (82.0-101.0); MEAN PLATELET VOLUME 9.2 fl (7.4-10.4); MONOCYTE # 0.8 10^3/ul (0.3-0.9); MONOCYTES % 10.7 % (0.0-11.0); NEUTROPHIL # 4.3 10^3/ul (1.6-7.5); NEUTROPHILS % 61.3 % (39.0-77.0); PLATELET COUNT 501 10^3/UL (140-415); RED BLOOD COUNT 3.17 10^6/ul (4.20-5.40); RED CELL DISTRIBUTION WIDTH 13.2 % (11.5-14.5); WHITE BLOOD COUNT 7.1 10^3/ul (4.8-10.8)
[2016-12-08 07:28] LABS: ALBUMIN 3.3 g/dl (3.3-4.9); ALBUMIN/GLOBULIN RATIO 0.86; BILIRUBIN,INDIRECT 0.3 mg/dl (0-1.1); BILIRUBIN,TOTAL 0.3 mg/dl (0.2-1.3); CREATININE 0.44 mg/dl (0.44-1.00); MAGNESIUM 2.1 mg/dl (1.7-2.5); PHOSPHORUS 4.9 mg/dl (2.5-4.9); POTASSIUM 4.4 mmol/L (3.5-5.1); TOTAL PROTEIN 7.1 g/dl (6.1-8.1)
[2016-12-08] MEDS: INSULIN ASPART [NOVOLOG] 3 ML PEN SC SCH ×7 (08:00→21:00)
[2016-12-08 08:24] VITALS: BP 114/55; RESP 18
[2016-12-08] MEDS: LACTOBACILLUS RHAMNOSUS CAP PO SCH ×2 (08:29→21:28)
[2016-12-08] MEDS: morphine (ER) 15 MG TAB PO SCH ×2 (08:30→21:29)
[2016-12-08] MEDS: CHOLECALCIFEROL 2,000 UNIT CAP PO SCH (08:30)
[2016-12-08] MEDS: CLOPIDOGREL 75 MG TAB PO SCH (08:30)
[2016-12-08] MEDS: MULTIVITAMINS THERAPEUTIC TAB PO SCH (08:30)
[2016-12-08] MEDS: GABAPENTIN 300 MG CAP PO SCH ×3 (08:30→21:31)
[2016-12-08] MEDS: LISINOPRIL 5 MG TAB PO SCH (08:31)
[2016-12-08] MEDS: ENOXAPARIN 30 MG/0.3 ML SYG SC SCH (08:33)
--- NOTE | 2016-12-08 09:18 | PN ---
Date/Time of Note Date/Time of Note DATE: 12/08/16 TIME: 09:18 Assessment/Plan Lines/Catheters IV Catheter Type (from Nrs): Saline Lock Vee in Place (from Nrsg): Yes Assessment/Plan Chief Complaint/Hosp Course -Bilateral lower extremity atherosclerosis with gangrene: S/P BKA -Patient is cleared from Vascular surgery standpoint for discharge planning -Continue with Rivet Maker and PT/OT OOB -Optimize vascular status (BP meds, diet, nutrition, exercise, sugar control, antiplatelets). -Discussed findings, plan and management with the patient, she understands with a certified environmental aide -Thank you for allowing us to partake in the care of your patient. Please call with any questions. Problems: Subjective 24 Hr Interval Summary Constitutional: improved, no complaints Exam/Review of Systems Vital Signs Vitals Vital Signs Date Time Temp Pulse Resp B/P Pulse Ox O2 Delivery O2 Flow Rate FiO2 12/08/16 08:24 97.7 79 18 114/55 94 12/04/16 07:44 Room Air Intake and Output 12/07/16 12/07/16 12/08/16 15:00 23:00 07:00 Intake Total 720 ml Output Total 1800 ml Balance -1080 ml Exam Free Text/Dictation GENERAL: Alert and oriented x3. PULMONARY: Clear to auscultation bilaterally. CARDIOVASCULAR: S1, S2 present. ABDOMEN: Soft, nontender, nondistended. Bowel sounds positive. EXTREMITIES: Right lower extremity: Palpable femoral pulse, Motor, sensory intact. Capillary refill 2-3 seconds at the BKA.stump. incision clean and dry, some incisional tenderness Results Result Diagram: 12/08/16 0624 12/08/16 0624 JOAQUINA MCKEON MD December 08, 2016 09:18
[2016-12-08] MEDS: HYDROmorphONE 2 MG TAB PO PRN ×2 (09:23→18:47)
--- NOTE | 2016-12-08 10:01 | CONS ---
Date/Time of Note Date/Time of Note DATE: 12/08/16 TIME: 09:59 Assessment/Plan Assessment/Plan Additional Assessment/Plan 1. Preoperative evaluation prior to lower extremity vascular surgery.-negative troponin x 3. EKD 11/28 with no sig changes/single PVC. Relatively recent negative stress test and NL EF/no sig valve abnl by echo 09/2016. Now s/p RLE amputation POD - con't medical optimization - PAIN CONTROLLED. 2. Hypertension, labile, but currently under reasonable control. ? component of pain - stable, con't pain Rx - BP stable. GOOD STATUS NOW. 3. Dyslipidemia. 4. Peripheral arterial disease, status post left lower extremity above- knee amputation and right lower extremity with gangrenous changes, status post prior [employer]- unchanged. 5. Diabetes mellitus- on meds, keep euvolemic. 6. Lower extremity gangrenous changes, right lower extremity- post op 7. Status post left lower extremity above-knee amputation. 8. Anemia. 9.PVC-single on ecg Consultation Date/Type/Reason Admit Date/Time Nov 19, 2016 at 11:38 Type of Consultation: Foot and ankle surgery Referring Provider: JOAQUINA MCKEON MD 24 HR Interval Summary Free Text/Dictation NO acute events - BP in good range - will monitor clinically. ROS: No fever, no chills, no nausea, no vomiting, no diarrhea/constipation No recent weight changes No chest pain, no PND, no orthopnea No dizziness, blurred vision No thirst, no heat or cold intolerance Exam/Review of Systems Vital Signs Vitals Vital Signs Date Time Temp Pulse Resp B/P Pulse Ox O2 Delivery O2 Flow Rate FiO2 12/08/16 08:24 97.7 79 18 114/55 94 12/04/16 07:44 Room Air Intake and Output 12/07/16 12/07/16 12/08/16 15:00 23:00 07:00 Intake Total 720 ml Output Total 1800 ml Balance -1080 ml Exam General: WN/WD/NAD, AOx 2-3 HEENT: Unicetric/atraumatic/EOMI (follows commands) NECK: JVD elevated, no thyromegaly Lymph: no lymphadenopathy HEART: regular with no S3, II/ systolic murmur at apex LUNGS: Coarse sounds ABD: soft, NT, ND, +BS : Intact Neuro: non focal SKIN: chronic changes EXT: trace edema, post op Results Result Diagram: 12/08/16 0624 12/08/16 0624 Results 24 hrs Laboratory Tests Test 12/07/16 12:30 12/07/16 17:09 12/07/16 20:00 12/07/16 21:12 Bedside Glucose 195 151 187 150 Test 12/08/16 06:24 12/08/16 08:14 White Blood Count 7.1 Red Blood Count 3.17 L Hemoglobin 9.6 L Hematocrit 29.3 L Mean Corpuscular Volume 92.4 Mean Corpuscular Hemoglobin 30.3 Mean Corpuscular Hemoglobin Concent 32.8 Red Cell Distribution Width 13.2 Platelet Count 501 H Mean Platelet Volume 9.2 Neutrophils % 61.3 Lymphocytes % 23.0 Monocytes % 10.7 Eosinophils % 4.2 Basophils % 0.1 Nucleated Red Blood Cells % 0.0 Neutrophils # 4.3 Lymphocytes # 1.6 Monocytes # 0.8 Eosinophils # 0.3 Basophils # 0.0 Nucleated Red Blood Cells # 0.0 Sodium Level 131 L Potassium Level 4.4 Chloride Level 96 L Carbon Dioxide Level 30 Anion Gap 9 Blood Urea Nitrogen 18 Creatinine 0.44 Glucose Level 126 Calcium Level 9.0 Phosphorus Level 4.9 Magnesium Level 2.1 Total Bilirubin 0.3 Direct Bilirubin 0.00 Indirect Bilirubin 0.3 Aspartate Amino Transf (AST/SGOT) 30 Alanine Aminotransferase (ALT/SGPT) 32 Alkaline Phosphatase 190 H Total Protein 7.1 Albumin 3.3 Globulin 3.80 H Albumin/Globulin Ratio 0.86 Bedside Glucose 114 Medications Medications Current Medications Diagnostic Test (Pha) (Accu-Chek) 1 ea 02 XX ; Start 11/20/16 at 02:00 Miscellaneous Information 1 ea NOTE XX ; Start 11/20/16 at 08:00 Glucose (Glutose) 15 gm Q15M PRN PO DECREASED GLUCOSE; Start 11/20/16 at 08:00 Glucose (Glutose) 22.5 gm Q15M PRN PO DECREASED GLUCOSE; Start 11/20/16 at 08: 00 Dextrose (D50w Syringe) 25 ml Q15M PRN IV DECREASED GLUCOSE; Start 11/20/16 at 08:00 Dextrose (D50w Syringe) 50 ml Q15M PRN IV DECREASED GLUCOSE; Start 11/20/16 at 08:00 Glucagon (Glucagen) 1 mg Q15M PRN IM DECREASED GLUCOSE; Start 11/20/16 at 08:00 Glucose (Glutose) 15 gm Q15M PRN BUCCAL DECREASED GLUCOSE; Start 11/20/16 at 08 :00 Hydralazine HCl (Apresoline) 10 mg Q6H PRN IV SBP>160 Last administered on 11/28 19:37; Admin Dose 10 MG; Start 11/20/16 at 16:30 Insulin Glargine (Lantus) 6 unit DAILY@20 SC Last administered on 12/07/16 20: 03; Admin Dose 6 UNIT; Start 11/20/16 at 20:00 Cholecalciferol (Vitamin D) 2,000 unit DAILY PO Last administered on 12/08/16 08:30; Admin Dose 2,000 UNIT; Start 11/21/16 at 11:30 Clopidogrel Bisulfate (plaVIX) 75 mg DAILY PO Last administered on 12/08/16 08: 30; Admin Dose 75 MG; Start 11/22/16 at 12:30 Ondansetron HCl (Zofran Inj) 4 mg Q4H PRN IV NAUSEA AND/OR VOMITING Last administered on 11/29/16 20:58; Admin Dose 4 MG; Start 11/24/16 at 14:30 Polyethylene Glycol (Miralax) 17 gm DAILY PRN PO CONSTIPATION Last administered on 12/06/16 00:13; Admin Dose 17 GM; Start 11/27/16 at 17:00 Atorvastatin Calcium (Lipitor) 40 mg DAILY@21 PO Last administered on 12/07/16 19:56; Admin Dose 40 MG; Start 11/28/16 at 21:00 Mirtazapine (Remeron) 15 mg HS PO Last administered on 12/07/16 19:56; Admin Dose 15 MG; Start 11/29/16 at 21:00 Diphenhydramine HCl (Benadryl) 25 mg Q4H PRN IV PRURITUS; Start 12/01/16 at 09: 00 Naloxone HCl (Narcan) 0.2 mg Q2M PRN IV FOR RESP RATE 8 OR LESS; Start 12/01/16 at 09:00 Hydromorphone HCl (Dilaudid) 1.5 mg Q3 PRN IV PAIN Last administered on 13:55; Admin Dose 1.5 MG; Start 12/02/16 at 22:30 Enoxaparin Sodium (Lovenox) 30 mg DAILY SC Last administered on 12/08/16 08:33 ; Admin Dose 30 MG; Start 12/04/16 at 16:00 Gabapentin (Neurontin) 600 mg TID PO Last administered on 12/08/16 08:30; Admin Dose 600 MG; Start 12/05/16 at 13:00 Morphine Sulfate (Ms Contin (Er)) 15 mg BID PO Last administered on 12/08/16 08 :30; Admin Dose 15 MG; Start 12/05/16 at 09:00 Docusate Sodium (Colace) 100 mg HS PO Last administered on 12/07/16 19:56; Admin Dose 100 MG; Start 12/07/16 at 21:00 Famotidine (Pepcid) 20 mg HS PO Last administered on 12/07/16 20:04; Admin Dose 20 MG; Start 12/07/16 at 21:00 Lisinopril (Zestril) 5 mg DAILY PO ; Start 12/08/16 at 09:00 Ondansetron HCl (Zofran Inj) 4 mg Q4 PRN IV NAUSEA AND/OR VOMITING; Start at 13:00 Lactobacillus Acidophilus/ Rhamnosus (Culturelle) 1 cap BID PO Last administered on 12/08/16 08:29; Admin Dose 1 CAP; Start 12/07/16 at 11:00 Multivitamins Therapeutic (Theragran) 1 tab DAILY PO Last administered on 08:30; Admin Dose 1 TAB; Start 12/07/16 at 12:00 Hydromorphone HCl (Dilaudid) 2 mg Q3H PRN PO MODERATE PAIN LEVEL 4-6 Last administered on 12/08/16 09:23; Admin Dose 2 MG; Start 12/07/16 at 16:30 APRYL IVY MD December 08, 2016 10:01
--- NOTE | 2016-12-08 13:51 | CONS ---
Date/Time of Note Date/Time of Note DATE: 12/08/16 TIME: 13:51 Assessment/Plan Assessment/Plan Chief Complaint/Hosp Course SUBJECTIVE: No events overnight, alert, feels good, no n/v/d, no fevers PHYSICAL EXAMINATION: GENERAL: Well-developed, middle-aged woman who is awake, in no distress. HEENT: Head atraumatic, normocephalic. Sclerae anicteric. Buccal mucosa pink. NECK: Supple. CHEST: Rise symmetrical. Breath sounds clear. HEART: S1, S2. ABDOMEN: Soft, bowel tones present. EXTREMITIES: With right lower extremity dressing intact. ASSESSMENT: 1. Severe peripheral arterial disease status post right below-knee amputation 2. History of Clostridium difficile colitis. 3. Diabetes. 4. History of left above-knee amputation. PLAN: The patient remains stable, off abx, will monitor wound for infection, f/ u vascular rec-s. DW staff Problems: Consultation Date/Type/Reason Admit Date/Time Nov 19, 2016 at 11:38 Type of Consultation: ID Referring Provider: JOAQUINA MCKEON MD Exam/Review of Systems Vital Signs Vitals Vital Signs Date Time Temp Pulse Resp B/P Pulse Ox O2 Delivery O2 Flow Rate FiO2 12/08/16 08:24 97.7 79 18 114/55 94 12/04/16 07:44 Room Air Intake and Output 12/07/16 12/07/16 12/08/16 15:00 23:00 07:00 Intake Total 720 ml Output Total 1800 ml Balance -1080 ml Results Result Diagram: 12/08/16 0624 12/08/16 0624 Results 24 hrs Laboratory Tests Test 12/07/16 17:09 12/07/16 20:00 12/07/16 21:12 12/08/16 06:24 Bedside Glucose 151 187 150 White Blood Count 7.1 Red Blood Count 3.17 L Hemoglobin 9.6 L Hematocrit 29.3 L Mean Corpuscular Volume 92.4 Mean Corpuscular Hemoglobin 30.3 Mean Corpuscular Hemoglobin Concent 32.8 Red Cell Distribution Width 13.2 Platelet Count 501 H Mean Platelet Volume 9.2 Neutrophils % 61.3 Lymphocytes % 23.0 Monocytes % 10.7 Eosinophils % 4.2 Basophils % 0.1 Nucleated Red Blood Cells % 0.0 Neutrophils # 4.3 Lymphocytes # 1.6 Monocytes # 0.8 Eosinophils # 0.3 Basophils # 0.0 Nucleated Red Blood Cells # 0.0 Sodium Level 131 L Potassium Level 4.4 Chloride Level 96 L Carbon Dioxide Level 30 Anion Gap 9 Blood Urea Nitrogen 18 Creatinine 0.44 Glucose Level 126 Calcium Level 9.0 Phosphorus Level 4.9 Magnesium Level 2.1 Total Bilirubin 0.3 Direct Bilirubin 0.00 Indirect Bilirubin 0.3 Aspartate Amino Transf (AST/SGOT) 30 Alanine Aminotransferase (ALT/SGPT) 32 Alkaline Phosphatase 190 H Total Protein 7.1 Albumin 3.3 Globulin 3.80 H Albumin/Globulin Ratio 0.86 Test 12/08/16 08:14 12/08/16 11:57 Bedside Glucose 114 171 Medications Medications Current Medications Diagnostic Test (Pha) (Accu-Chek) 1 ea 02 XX ; Start 11/20/16 at 02:00 Miscellaneous Information 1 ea NOTE XX ; Start 11/20/16 at 08:00 Glucose (Glutose) 15 gm Q15M PRN PO DECREASED GLUCOSE; Start 11/20/16 at 08:00 Glucose (Glutose) 22.5 gm Q15M PRN PO DECREASED GLUCOSE; Start 11/20/16 at 08: 00 Dextrose (D50w Syringe) 25 ml Q15M PRN IV DECREASED GLUCOSE; Start 11/20/16 at 08:00 Dextrose (D50w Syringe) 50 ml Q15M PRN IV DECREASED GLUCOSE; Start 11/20/16 at 08:00 Glucagon (Glucagen) 1 mg Q15M PRN IM DECREASED GLUCOSE; Start 11/20/16 at 08:00 Glucose (Glutose) 15 gm Q15M PRN BUCCAL DECREASED GLUCOSE; Start 11/20/16 at 08 :00 Hydralazine HCl (Apresoline) 10 mg Q6H PRN IV SBP>160 Last administered on 11/28 19:37; Admin Dose 10 MG; Start 11/20/16 at 16:30 Insulin Glargine (Lantus) 6 unit DAILY@20 SC Last administered on 12/07/16 20: 03; Admin Dose 6 UNIT; Start 11/20/16 at 20:00 Cholecalciferol (Vitamin D) 2,000 unit DAILY PO Last administered on 12/08/16 08:30; Admin Dose 2,000 UNIT; Start 11/21/16 at 11:30 Clopidogrel Bisulfate (plaVIX) 75 mg DAILY PO Last administered on 12/08/16 08: 30; Admin Dose 75 MG; Start 11/22/16 at 12:30 Ondansetron HCl (Zofran Inj) 4 mg Q4H PRN IV NAUSEA AND/OR VOMITING Last administered on 11/29/16 20:58; Admin Dose 4 MG; Start 11/24/16 at 14:30 Polyethylene Glycol (Miralax) 17 gm DAILY PRN PO CONSTIPATION Last administered on 12/06/16 00:13; Admin Dose 17 GM; Start 11/27/16 at 17:00 Atorvastatin Calcium (Lipitor) 40 mg DAILY@21 PO Last administered on 12/07/16 19:56; Admin Dose 40 MG; Start 11/28/16 at 21:00 Mirtazapine (Remeron) 15 mg HS PO Last administered on 12/07/16 19:56; Admin Dose 15 MG; Start 11/29/16 at 21:00 Diphenhydramine HCl (Benadryl) 25 mg Q4H PRN IV PRURITUS; Start 12/01/16 at 09: 00 Naloxone HCl (Narcan) 0.2 mg Q2M PRN IV FOR RESP RATE 8 OR LESS; Start 12/01/16 at 09:00 Hydromorphone HCl (Dilaudid) 1.5 mg Q3 PRN IV PAIN Last administered on 13:55; Admin Dose 1.5 MG; Start 12/02/16 at 22:30 Enoxaparin Sodium (Lovenox) 30 mg DAILY SC Last administered on 12/08/16 08:33 ; Admin Dose 30 MG; Start 12/04/16 at 16:00 Gabapentin (Neurontin) 600 mg TID PO Last administered on 12/08/16 12:04; Admin Dose 600 MG; Start 12/05/16 at 13:00 Morphine Sulfate (Ms Contin (Er)) 15 mg BID PO Last administered on 12/08/16 08 :30; Admin Dose 15 MG; Start 12/05/16 at 09:00 Docusate Sodium (Colace) 100 mg HS PO Last administered on 12/07/16 19:56; Admin Dose 100 MG; Start 12/07/16 at 21:00 Famotidine (Pepcid) 20 mg HS PO Last administered on 12/07/16 20:04; Admin Dose 20 MG; Start 12/07/16 at 21:00 Lisinopril (Zestril) 5 mg DAILY PO ; Start 12/08/16 at 09:00 Ondansetron HCl (Zofran Inj) 4 mg Q4 PRN IV NAUSEA AND/OR VOMITING; Start at 13:00 Lactobacillus Acidophilus/ Rhamnosus (Culturelle) 1 cap BID PO Last administered on 12/08/16 08:29; Admin Dose 1 CAP; Start 12/07/16 at 11:00 Multivitamins Therapeutic (Theragran) 1 tab DAILY PO Last administered on 08:30; Admin Dose 1 TAB; Start 12/07/16 at 12:00 Hydromorphone HCl (Dilaudid) 2 mg Q3H PRN PO MODERATE PAIN LEVEL 4-6 Last administered on 12/08/16 09:23; Admin Dose 2 MG; Start 12/07/16 at 16:30 KATHERYN RINALDI NP December 08, 2016 13:51
--- NOTE | 2016-12-08 15:35 | PN ---
Date/Time of Note Date/Time of Note DATE: 12/08/16 TIME: 15:33 Assessment/Plan VTE Prophylaxis VTE Prophylaxis Intervention: LMWH Lines/Catheters IV Catheter Type (from Nrs): Saline Lock Urinary Cath still in place: Yes Reason Cath still needed: pres ulcer contaminated by urine Assessment/Plan Chief Complaint/Hosp Course S: 12/07 pain appears controlled. No distress. Does not like hospital food. Still crying due to her present situation. 12/08 appears stable. Family agrees. I asked them to fill a prescription for DVT prophylaxis: Eliquis for Lovenox. O: Vss PE No pallor Reg, + sm no r/g CTAB Bs + nt nd, no r/r/g Lt hip disarticulation status. Rt BKA status. A/P 1. Rt foot gangrene. Sp BKA. Stable cont wound care. Once wound healed, consider prosthesis/PT. 2. Rt BKA status. Treat stress anxiety. Watch for phantom limb syndrome. 3. Debility. Transfer to snf when ok w vascular. 4. Chr PAD; ho fem-pop procedure, cont risk factor modification 5. DM/htn/dl/metabolic syndrome 6. Ho C diff 7. Anemia stable no evidence of bleed 8. Subclinical hyperthyroidism Problems: Exam/Review of Systems Vital Signs Vitals Vital Signs Date Time Temp Pulse Resp B/P Pulse Ox O2 Delivery O2 Flow Rate FiO2 12/08/16 08:24 97.7 79 18 114/55 94 12/04/16 07:44 Room Air Intake and Output 12/07/16 12/07/16 12/08/16 15:00 23:00 07:00 Intake Total 720 ml Output Total 1800 ml Balance -1080 ml Results Result Diagram: 12/08/16 0624 12/08/16 0624 Results 24 hrs Laboratory Tests Test 12/07/16 17:09 12/07/16 20:00 12/07/16 21:12 12/08/16 06:24 Bedside Glucose 151 187 150 White Blood Count 7.1 Red Blood Count 3.17 L Hemoglobin 9.6 L Hematocrit 29.3 L Mean Corpuscular Volume 92.4 Mean Corpuscular Hemoglobin 30.3 Mean Corpuscular Hemoglobin Concent 32.8 Red Cell Distribution Width 13.2 Platelet Count 501 H Mean Platelet Volume 9.2 Neutrophils % 61.3 Lymphocytes % 23.0 Monocytes % 10.7 Eosinophils % 4.2 Basophils % 0.1 Nucleated Red Blood Cells % 0.0 Neutrophils # 4.3 Lymphocytes # 1.6 Monocytes # 0.8 Eosinophils # 0.3 Basophils # 0.0 Nucleated Red Blood Cells # 0.0 Sodium Level 131 L Potassium Level 4.4 Chloride Level 96 L Carbon Dioxide Level 30 Anion Gap 9 Blood Urea Nitrogen 18 Creatinine 0.44 Glucose Level 126 Calcium Level 9.0 Phosphorus Level 4.9 Magnesium Level 2.1 Total Bilirubin 0.3 Direct Bilirubin 0.00 Indirect Bilirubin 0.3 Aspartate Amino Transf (AST/SGOT) 30 Alanine Aminotransferase (ALT/SGPT) 32 Alkaline Phosphatase 190 H Total Protein 7.1 Albumin 3.3 Globulin 3.80 H Albumin/Globulin Ratio 0.86 Test 12/08/16 08:14 12/08/16 11:57 Bedside Glucose 114 171 Medications Medications Current Medications Diagnostic Test (Pha) (Accu-Chek) 1 ea 02 XX ; Start 11/20/16 at 02:00 Miscellaneous Information 1 ea NOTE XX ; Start 11/20/16 at 08:00 Glucose (Glutose) 15 gm Q15M PRN PO DECREASED GLUCOSE; Start 11/20/16 at 08:00 Glucose (Glutose) 22.5 gm Q15M PRN PO DECREASED GLUCOSE; Start 11/20/16 at 08: 00 Dextrose (D50w Syringe) 25 ml Q15M PRN IV DECREASED GLUCOSE; Start 11/20/16 at 08:00 Dextrose (D50w Syringe) 50 ml Q15M PRN IV DECREASED GLUCOSE; Start 11/20/16 at 08:00 Glucagon (Glucagen) 1 mg Q15M PRN IM DECREASED GLUCOSE; Start 11/20/16 at 08:00 Glucose (Glutose) 15 gm Q15M PRN BUCCAL DECREASED GLUCOSE; Start 11/20/16 at 08 :00 Hydralazine HCl (Apresoline) 10 mg Q6H PRN IV SBP>160 Last administered on 11/28 19:37; Admin Dose 10 MG; Start 11/20/16 at 16:30 Insulin Glargine (Lantus) 6 unit DAILY@20 SC Last administered on 12/07/16 20: 03; Admin Dose 6 UNIT; Start 11/20/16 at 20:00 Cholecalciferol (Vitamin D) 2,000 unit DAILY PO Last administered on 12/08/16 08:30; Admin Dose 2,000 UNIT; Start 11/21/16 at 11:30 Clopidogrel Bisulfate (plaVIX) 75 mg DAILY PO Last administered on 12/08/16 08: 30; Admin Dose 75 MG; Start 11/22/16 at 12:30 Ondansetron HCl (Zofran Inj) 4 mg Q4H PRN IV NAUSEA AND/OR VOMITING Last administered on 11/29/16 20:58; Admin Dose 4 MG; Start 11/24/16 at 14:30 Polyethylene Glycol (Miralax) 17 gm DAILY PRN PO CONSTIPATION Last administered on 12/06/16 00:13; Admin Dose 17 GM; Start 11/27/16 at 17:00 Atorvastatin Calcium (Lipitor) 40 mg DAILY@21 PO Last administered on 12/07/16 19:56; Admin Dose 40 MG; Start 11/28/16 at 21:00 Mirtazapine (Remeron) 15 mg HS PO Last administered on 12/07/16 19:56; Admin Dose 15 MG; Start 11/29/16 at 21:00 Diphenhydramine HCl (Benadryl) 25 mg Q4H PRN IV PRURITUS; Start 12/01/16 at 09: 00 Naloxone HCl (Narcan) 0.2 mg Q2M PRN IV FOR RESP RATE 8 OR LESS; Start 12/01/16 at 09:00 Hydromorphone HCl (Dilaudid) 1.5 mg Q3 PRN IV PAIN Last administered on 13:55; Admin Dose 1.5 MG; Start 12/02/16 at 22:30 Enoxaparin Sodium (Lovenox) 30 mg DAILY SC Last administered on 12/08/16 08:33 ; Admin Dose 30 MG; Start 12/04/16 at 16:00 Gabapentin (Neurontin) 600 mg TID PO Last administered on 12/08/16 12:04; Admin Dose 600 MG; Start 12/05/16 at 13:00 Morphine Sulfate (Ms Contin (Er)) 15 mg BID PO Last administered on 12/08/16 08 :30; Admin Dose 15 MG; Start 12/05/16 at 09:00 Docusate Sodium (Colace) 100 mg HS PO Last administered on 12/07/16 19:56; Admin Dose 100 MG; Start 12/07/16 at 21:00 Famotidine (Pepcid) 20 mg HS PO Last administered on 12/07/16 20:04; Admin Dose 20 MG; Start 12/07/16 at 21:00 Lisinopril (Zestril) 5 mg DAILY PO ; Start 12/08/16 at 09:00 Ondansetron HCl (Zofran Inj) 4 mg Q4 PRN IV NAUSEA AND/OR VOMITING; Start at 13:00 Lactobacillus Acidophilus/ Rhamnosus (Culturelle) 1 cap BID PO Last administered on 12/08/16 08:29; Admin Dose 1 CAP; Start 12/07/16 at 11:00 Multivitamins Therapeutic (Theragran) 1 tab DAILY PO Last administered on 08:30; Admin Dose 1 TAB; Start 12/07/16 at 12:00 Hydromorphone HCl (Dilaudid) 2 mg Q3H PRN PO MODERATE PAIN LEVEL 4-6 Last administered on 12/08/16 09:23; Admin Dose 2 MG; Start 12/07/16 at 16:30 GASTON CELAYA MD December 08, 2016 15:35
[2016-12-08 20:44] VITALS: BP 104/61; RESP 18
[2016-12-08] MEDS: INSULIN GLARGINE [LANtus] 3 ML PEN SC SCH (21:26)
[2016-12-08] MEDS: ATORVASTATIN 40 MG TAB PO SCH (21:28)
[2016-12-08] MEDS: FAMOTIDINE 20 MG TAB PO SCH (21:28)
[2016-12-08] MEDS: DOCUSATE SODIUM 100 MG CAP PO SCH (21:28)
[2016-12-08] MEDS: MIRTAZAPINE 15 MG TAB PO SCH (21:31)
[2016-12-09] MEDS: ACCU-CHEK XX SCH (02:00)
[2016-12-09 07:45] VITALS: BP 132/60; RESP 20
[2016-12-09] MEDS: INSULIN ASPART [NOVOLOG] 3 ML PEN SC SCH ×6 (07:51→17:39)
[2016-12-09] MEDS: ENOXAPARIN 30 MG/0.3 ML SYG SC SCH (08:17)
[2016-12-09] MEDS: LACTOBACILLUS RHAMNOSUS CAP PO SCH (08:17)
[2016-12-09] MEDS: GABAPENTIN 300 MG CAP PO SCH ×2 (08:17→14:41)
[2016-12-09] MEDS: CLOPIDOGREL 75 MG TAB PO SCH (08:17)
[2016-12-09] MEDS: CHOLECALCIFEROL 2,000 UNIT CAP PO SCH (08:17)
[2016-12-09] MEDS: LISINOPRIL 5 MG TAB PO SCH (08:17)
[2016-12-09] MEDS: MULTIVITAMINS THERAPEUTIC TAB PO SCH (08:17)
[2016-12-09] MEDS: morphine (ER) 15 MG TAB PO SCH ×2 (08:18→11:53)
--- NOTE | 2016-12-09 13:27 | CONS ---
Date/Time of Note Date/Time of Note DATE: 12/09/16 TIME: 13:27 Assessment/Plan Assessment/Plan Chief Complaint/Hosp Course SUBJECTIVE: No events overnight, alert, feels good, no n/v/d, no fevers PHYSICAL EXAMINATION: GENERAL: Well-developed, middle-aged woman who is awake, in no distress. HEENT: Head atraumatic, normocephalic. Sclerae anicteric. Buccal mucosa pink. NECK: Supple. CHEST: Rise symmetrical. Breath sounds clear. HEART: S1, S2. ABDOMEN: Soft, bowel tones present. EXTREMITIES: With right lower extremity dressing intact. ASSESSMENT: 1. Severe peripheral arterial disease status post right below-knee amputation 2. History of Clostridium difficile colitis. 3. Diabetes. 4. History of left above-knee amputation. PLAN: The patient remains stable, off abx, will monitor wound for infection, f/ u vascular rec-s. DW staff Problems: Consultation Date/Type/Reason Admit Date/Time Nov 19, 2016 at 11:38 Type of Consultation: ID Referring Provider: JOAQUINA MCKEON MD Exam/Review of Systems Vital Signs Vitals Vital Signs Date Time Temp Pulse Resp B/P Pulse Ox O2 Delivery O2 Flow Rate FiO2 12/09/16 07:45 98.8 84 20 132/60 96 Intake and Output 12/08/16 12/08/16 12/09/16 15:00 23:00 07:00 Intake Total 840 ml 680 ml Output Total 750 ml 700 ml Balance 90 ml -20 ml Results Result Diagram: 12/08/16 0624 12/08/16 0624 Results 24 hrs Laboratory Tests Test 12/08/16 16:58 12/08/16 21:23 12/09/16 07:49 12/09/16 11:51 Bedside Glucose 132 167 146 258 H Medications Medications Current Medications Diagnostic Test (Pha) (Accu-Chek) 1 ea 02 XX ; Start 11/20/16 at 02:00 Miscellaneous Information 1 ea NOTE XX ; Start 11/20/16 at 08:00 Glucose (Glutose) 15 gm Q15M PRN PO DECREASED GLUCOSE; Start 11/20/16 at 08:00 Glucose (Glutose) 22.5 gm Q15M PRN PO DECREASED GLUCOSE; Start 11/20/16 at 08: 00 Dextrose (D50w Syringe) 25 ml Q15M PRN IV DECREASED GLUCOSE; Start 11/20/16 at 08:00 Dextrose (D50w Syringe) 50 ml Q15M PRN IV DECREASED GLUCOSE; Start 11/20/16 at 08:00 Glucagon (Glucagen) 1 mg Q15M PRN IM DECREASED GLUCOSE; Start 11/20/16 at 08:00 Glucose (Glutose) 15 gm Q15M PRN BUCCAL DECREASED GLUCOSE; Start 11/20/16 at 08 :00 Hydralazine HCl (Apresoline) 10 mg Q6H PRN IV SBP>160 Last administered on 11/28 19:37; Admin Dose 10 MG; Start 11/20/16 at 16:30 Insulin Glargine (Lantus) 6 unit DAILY@20 SC Last administered on 12/08/16 21: 26; Admin Dose 6 UNIT; Start 11/20/16 at 20:00 Cholecalciferol (Vitamin D) 2,000 unit DAILY PO Last administered on 12/09/16 08:17; Admin Dose 2,000 UNIT; Start 11/21/16 at 11:30 Clopidogrel Bisulfate (plaVIX) 75 mg DAILY PO Last administered on 12/09/16 08 :17; Admin Dose 75 MG; Start 11/22/16 at 12:30 Polyethylene Glycol (Miralax) 17 gm DAILY PRN PO CONSTIPATION Last administered on 12/06/16 00:13; Admin Dose 17 GM; Start 11/27/16 at 17:00 Atorvastatin Calcium (Lipitor) 40 mg DAILY@21 PO Last administered on 12/08/16 21:28; Admin Dose 40 MG; Start 11/28/16 at 21:00 Mirtazapine (Remeron) 15 mg HS PO Last administered on 12/08/16 21:31; Admin Dose 15 MG; Start 11/29/16 at 21:00 Diphenhydramine HCl (Benadryl) 25 mg Q4H PRN IV PRURITUS; Start 12/01/16 at 09: 00 Naloxone HCl (Narcan) 0.2 mg Q2M PRN IV FOR RESP RATE 8 OR LESS; Start 12/01/16 at 09:00 Hydromorphone HCl (Dilaudid) 1.5 mg Q3 PRN IV PAIN Last administered on 13:55; Admin Dose 1.5 MG; Start 12/02/16 at 22:30 Enoxaparin Sodium (Lovenox) 30 mg DAILY SC Last administered on 12/09/16 08:17 ; Admin Dose 30 MG; Start 12/04/16 at 16:00 Gabapentin (Neurontin) 600 mg TID PO Last administered on 12/09/16 08:17; Admin Dose 600 MG; Start 12/05/16 at 13:00 Morphine Sulfate (Ms Contin (Er)) 15 mg BID PO Last administered on 12/09/16 11:53; Admin Dose 15 MG; Start 12/05/16 at 09:00 Docusate Sodium (Colace) 100 mg HS PO Last administered on 12/08/16 21:28; Admin Dose 100 MG; Start 12/07/16 at 21:00 Famotidine (Pepcid) 20 mg HS PO Last administered on 12/08/16 21:28; Admin Dose 20 MG; Start 12/07/16 at 21:00 Lisinopril (Zestril) 5 mg DAILY PO Last administered on 12/09/16 08:17; Admin Dose 5 MG; Start 12/08/16 at 09:00 Ondansetron HCl (Zofran Inj) 4 mg Q4 PRN IV NAUSEA AND/OR VOMITING; Start at 13:00 Lactobacillus Acidophilus/ Rhamnosus (Culturelle) 1 cap BID PO Last administered on 12/09/16 08:17; Admin Dose 1 CAP; Start 12/07/16 at 11:00 Multivitamins Therapeutic (Theragran) 1 tab DAILY PO Last administered on 08:17; Admin Dose 1 TAB; Start 12/07/16 at 12:00 Hydromorphone HCl (Dilaudid) 2 mg Q3H PRN PO MODERATE PAIN LEVEL 4-6 Last administered on 12/08/16 18:47; Admin Dose 2 MG; Start 12/07/16 at 16:30 KATHERYN RINALDI NP December 09, 2016 13:27
--- NOTE | 2016-12-09 13:33 | PDOCDIS ---
Discharge Instructions DIAGNOSIS Discharge Diagnosis: gangrene CONDITION Patient Condition: Stable HOME CARE INSTRUCTIONS: Special Diet: 1800 ada ACTIVITY: Activity Restrictions: Slowly Increase Activity FOLLOW UP/APPOINTMENTS Appointments PCP 1wk APC Dr Giraldo -1wk GASTON CELAYA MD December 09, 2016 13:33
[2016-12-09] MEDS ORDERED: ATOR40TA68 PO (13:40)
[2016-12-09] MEDS ORDERED: CHOL20003 PO (13:40)
[2016-12-09] MEDS ORDERED: DOCU-216 PO (13:40)
[2016-12-09] MEDS ORDERED: LISI-313 PO (13:40)
[2016-12-09] MEDS ORDERED: MULTI PO (13:40)
[2016-12-09] MEDS ORDERED: LACT1CAP57 PO (13:40)
[2016-12-09] MEDS ORDERED: FAMO20TA18 PO (13:40)
[2016-12-09] MEDS ORDERED: MIRT15TA5 PO (13:40)
[2016-12-09] MEDS ORDERED: MORP15TA3 PO (13:40)
--- NOTE | 2016-12-09 14:49 | DS ---
DATE OF ADMISSION: 11/19/2016 DATE OF DISCHARGE: 12/09/2016 PRIMARY CARE PHYSICIAN: Unknown. CONSULTANTS: Dr. Briceño, Dr. Mckeon, Dr. Patel, Dr. Carlos Ling. DIAGNOSIS ON ADMISSION: Right foot gangrene. DIAGNOSES ON DISCHARGE: 1. Right foot gangrene. 2. Right below-knee amputation status. HOSPITAL COURSE: This is an unfortunate 51-year-old female who has a history of right foot gangrene . Unfortunately, it failed conservative measures. She required conservative surgeries initially, but as it did not, required a right BKA. She is presently right BKA status and once the wound is he aled, we will consider prosthesis and ambulatory assistance. The patient presently refused to go to SNF and is stable and fit for discharge. She was seen and cleared by vascular and podiatry. 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 I can only marielrocío sumner what she is going through. She has had a lot issues of adjustment disorder, grief, anxiety, an d stress, etc. I appreciate social service assistance. Her previous wound VAC is not required at t his time. In terms of her debility, the patient does not want to go to a SNF. Home health with [facility] will continue. The patient has finished antibiotics. I have given her prescriptions for narcotics. Always a risk of phantom limb syndrome. In terms of her chronic peripheral artery disease, there is history of fem-pop procedure. She will continue Plavix, risk factor modification. Chronic diabetes/hypertension/dyslipidemia/metabolic syndrome. The patient is to continue insulin, Lipitor, low salt diet. History of Clostridium difficile, but active at this time. Anemia, stable, no evidence of bleeding at this time. Subclinical hyperthyroidism. No evidence of issues at this time. DISCHARGE PLAN: The patient is discharged home. Follow up with Dr. Mckeon in [facility] in 1 week. Fo llow up with cardiology, ID as needed. LABORATORY DATA: Chest x-ray clear from 12/03/2016. MRSA nares negative. Blood cultures negative. Hepatitis panel negative. INR 1.1. White cell count of 7, hemoglobin and hematocrit of 9 and 29, platelets of 501. CMP essentially unremarkable. A1c of 6.5. TSH of 0.297, free T4 of 1.4. Pregna ncy test negative. LDL 117, total of 175, we increased her Lipitor. HDL 39, triglycerides 97. Vit cali D-125 level of less than 12. VITAL SIGNS: Stable. FOLLOWUP: Appointment with primary in 1 week, [facility] in 1 week. DIET: 1800 ADA. ACTIVITY: Nonweightbearing. ALLERGIES: NO KNOWN DRUG ALLERGIES. CODE STATUS: FULL. CONDITION: Stable. BARRIERS TO DISCHARGE: None. PENDING TESTS: None. FUNCTIONAL STATUS: The patient is awake, alert, agrees with plan of care. I educated the son at th e patient's request. STOPPED MEDICATIONS: 1. Aspirin. 2. Simvastatin. CONTINUED MEDICATIONS: 1. Plavix 75 daily. 2. Neurontin 300 b.i.d. 3. Lantus 5 at bedtime. 4. Insulin 2 units with meals. ALTERED MEDICATIONS: 1. Lipitor now 40 daily. 2. Lisinopril now 5 daily. NEW MEDICATIONS: 1. Multivitamin daily. 2. Remeron 15 at bedtime daily. 3. Culturelle 1 capsule twice daily. 4. Pepcid 20 daily 1 week. 5. Colace 100 at bedtime daily 1 week. 6. Vitamin D3 2000 units daily. 7. Morphine ER 15 mg b.i.d. 8. Dilaudid 2 mg every 6 hours p.r.n. pain. Prescriptions given. Dictated By: GASTON SAUNDERS/TRACE Conf#: [id number] DID#: [id number] CC: KAYLEIGH PATEL MD; CARLOS LING DPM; SAVANNA BRICEÑO MD; JOAQUINA MCKEON MD;*End*
--- NOTE | 2016-12-09 14:50 | DS ---
DATE OF ADMISSION: 11/19/2016 DATE OF DISCHARGE: 12/09/2016 ADDENDUM NEW MEDICATION: Eliquis for DVT prophylaxis for 1 week and if unable to be covered, Lovenox 30 subc utaneous daily. The patient is comfortable doing subcutaneous shots at home. Please see original dictation for summary. Dictated By: GASTON SAUNDERS/TRACE Conf#: [id number] DID#: [id number]
--- NOTE | 2016-12-09 16:34 | CONS ---
Date/Time of Note Date/Time of Note DATE: 12/09/16 TIME: 16:33 Assessment/Plan Assessment/Plan Chief Complaint/Hosp Course IMPRESSION: 1. Preoperative evaluation prior to lower extremity vascular surgery.-negative troponin x 3. EKD 11/28 with no sig changes/single PVC. Relatively recent negative stress test and NL EF/no sig valve abnl by echo 09/2016. Now s/p RLE amputation post-op 2. Hypertension, labile, but currently under reasonable control. ? component of pain 3. Dyslipidemia. 4. Peripheral arterial disease, status post left lower extremity above- knee amputation and right lower extremity with gangrenous changes, status post prior INSPECTOR LINE. 5. Diabetes mellitus. 6. Lower extremity gangrenous changes, right lower extremity. 7. Status post left lower extremity above-knee amputation. 8. Anemia. 9.PVC-single on ecg Recc: -Continue plavix/zestril/statin -Local wound care/abx's -Pain control -Follow volume status closely -D/C planning Problems: Consultation Date/Type/Reason Admit Date/Time Nov 19, 2016 at 11:38 Initial Consult Date 11/28/2016 Type of Consultation: Cardiology Reason for Consultation HTN Referring Provider: JOAQUINA MCKEON MD Exam/Review of Systems Vital Signs Vitals Vital Signs Date Time Temp Pulse Resp B/P Pulse Ox O2 Delivery O2 Flow Rate FiO2 12/09/16 07:45 98.8 84 20 132/60 96 Intake and Output 12/08/16 12/08/16 12/09/16 15:00 23:00 07:00 Intake Total 840 ml 680 ml Output Total 750 ml 700 ml Balance 90 ml -20 ml Exam Review of Systems: CONSTITUTIONAL: No fevers, chills. PULMONARY: No sob CARDIOVASCULAR: No chest pain/palpitations GASTROINTESTINAL: No nausea/vomiting. GENITOURINARY: No hematuria/dysuria. MUSCULOSKELETAL: No myagias/arthalgias. PSYCHIATRIC: The patient denies depression. NEUROLOGIC: No weakness Constitutional: alert, oriented Psych: no complaints Head: normocephalic ENMT: mucosa pink and moist Neck: jvd (8 cm water), supple Respiratory: clear to auscultation Cardiovascular: regular rate and rhythm Gastrointestinal: non-tender, soft Musculoskeletal: other (s/p bilateral LE amputation) Results Result Diagram: 12/08/16 0624 12/08/16 0624 Results 24 hrs Laboratory Tests Test 12/08/16 16:58 12/08/16 21:23 12/09/16 07:49 12/09/16 11:51 Bedside Glucose 132 167 146 258 H Medications Medications Current Medications Diagnostic Test (Pha) (Accu-Chek) 1 ea 02 XX ; Start 11/20/16 at 02:00 Miscellaneous Information 1 ea NOTE XX ; Start 11/20/16 at 08:00 Glucose (Glutose) 15 gm Q15M PRN PO DECREASED GLUCOSE; Start 11/20/16 at 08:00 Glucose (Glutose) 22.5 gm Q15M PRN PO DECREASED GLUCOSE; Start 11/20/16 at 08: 00 Dextrose (D50w Syringe) 25 ml Q15M PRN IV DECREASED GLUCOSE; Start 11/20/16 at 08:00 Dextrose (D50w Syringe) 50 ml Q15M PRN IV DECREASED GLUCOSE; Start 11/20/16 at 08:00 Glucagon (Glucagen) 1 mg Q15M PRN IM DECREASED GLUCOSE; Start 11/20/16 at 08:00 Glucose (Glutose) 15 gm Q15M PRN BUCCAL DECREASED GLUCOSE; Start 11/20/16 at 08 :00 Hydralazine HCl (Apresoline) 10 mg Q6H PRN IV SBP>160 Last administered on 11/28 19:37; Admin Dose 10 MG; Start 11/20/16 at 16:30 Insulin Glargine (Lantus) 6 unit DAILY@20 SC Last administered on 12/08/16 21: 26; Admin Dose 6 UNIT; Start 11/20/16 at 20:00 Cholecalciferol (Vitamin D) 2,000 unit DAILY PO Last administered on 12/09/16 08:17; Admin Dose 2,000 UNIT; Start 11/21/16 at 11:30 Clopidogrel Bisulfate (plaVIX) 75 mg DAILY PO Last administered on 12/09/16 08 :17; Admin Dose 75 MG; Start 11/22/16 at 12:30 Polyethylene Glycol (Miralax) 17 gm DAILY PRN PO CONSTIPATION Last administered on 12/06/16 00:13; Admin Dose 17 GM; Start 11/27/16 at 17:00 Atorvastatin Calcium (Lipitor) 40 mg DAILY@21 PO Last administered on 12/08/16 21:28; Admin Dose 40 MG; Start 11/28/16 at 21:00 Mirtazapine (Remeron) 15 mg HS PO Last administered on 12/08/16 21:31; Admin Dose 15 MG; Start 11/29/16 at 21:00 Diphenhydramine HCl (Benadryl) 25 mg Q4H PRN IV PRURITUS; Start 12/01/16 at 09: 00 Naloxone HCl (Narcan) 0.2 mg Q2M PRN IV FOR RESP RATE 8 OR LESS; Start 12/01/16 at 09:00 Hydromorphone HCl (Dilaudid) 1.5 mg Q3 PRN IV PAIN Last administered on 13:55; Admin Dose 1.5 MG; Start 12/02/16 at 22:30 Enoxaparin Sodium (Lovenox) 30 mg DAILY SC Last administered on 12/09/16 08:17 ; Admin Dose 30 MG; Start 12/04/16 at 16:00 Gabapentin (Neurontin) 600 mg TID PO Last administered on 12/09/16 14:41; Admin Dose 600 MG; Start 12/05/16 at 13:00 Morphine Sulfate (Ms Contin (Er)) 15 mg BID PO Last administered on 12/09/16 11:53; Admin Dose 15 MG; Start 12/05/16 at 09:00 Docusate Sodium (Colace) 100 mg HS PO Last administered on 12/08/16 21:28; Admin Dose 100 MG; Start 12/07/16 at 21:00 Famotidine (Pepcid) 20 mg HS PO Last administered on 12/08/16 21:28; Admin Dose 20 MG; Start 12/07/16 at 21:00 Lisinopril (Zestril) 5 mg DAILY PO Last administered on 12/09/16 08:17; Admin Dose 5 MG; Start 12/08/16 at 09:00 Ondansetron HCl (Zofran Inj) 4 mg Q4 PRN IV NAUSEA AND/OR VOMITING; Start at 13:00 Lactobacillus Acidophilus/ Rhamnosus (Culturelle) 1 cap BID PO Last administered on 12/09/16 08:17; Admin Dose 1 CAP; Start 12/07/16 at 11:00 Multivitamins Therapeutic (Theragran) 1 tab DAILY PO Last administered on 08:17; Admin Dose 1 TAB; Start 12/07/16 at 12:00 Hydromorphone HCl (Dilaudid) 2 mg Q3H PRN PO MODERATE PAIN LEVEL 4-6 Last administered on 12/08/16 18:47; Admin Dose 2 MG; Start 12/07/16 at 16:30 KAYLEIGH NORIEGA December 09, 2016 16:34
== END 2016-12-09 18:53 | disposition home health service (06) | DRG 240 ==
LOC: PP2 11:38
PROVIDERS: ADMIT Hospitalist; ATTEND Hospitalist
PROC: 0HRMXK3 Replacement of Right Foot Skin with Nonautologous Tissue Substitute, Full Thickness, External Approach (ICD-10-PCS; 2016-11-20)
PROC: 0QBN0ZZ Excision of Right Metatarsal, Open Approach (ICD-10-PCS; 2016-11-20)
PROC: 0Y6V0Z0 Detachment at Right 4th Toe, Complete, Open Approach (ICD-10-PCS; 2016-11-20)
PROC: 0Y6X0Z0 Detachment at Right 5th Toe, Complete, Open Approach (ICD-10-PCS; 2016-11-20)
PROC: 0Y6M0ZB Detachment at Right Foot, Partial 2nd Ray, Open Approach (ICD-10-PCS; 2016-11-20)
PROC: 0Y6H0Z2 Detachment at Right Lower Leg, Mid, Open Approach (ICD-10-PCS; principal; 2016-12-01 07:30)
DX: E11.52 Type 2 diabetes mellitus with diabetic peripheral angiopathy with gangrene (principal); I70.261 Atherosclerosis of native arteries of extremities with gangrene, right leg; E11.21 Type 2 diabetes mellitus with diabetic nephropathy; E11.42 Type 2 diabetes mellitus with diabetic polyneuropathy; I10 Essential (primary) hypertension; I25.10 Atherosclerotic heart disease of native coronary artery without angina pectoris; Z89.622 Acquired absence of left hip joint; E78.00 Pure hypercholesterolemia, unspecified; Z79.4 Long term (current) use of insulin; D64.9 Anemia, unspecified; E55.9 Vitamin D deficiency, unspecified; R11.10 Vomiting, unspecified; K59.00 Constipation, unspecified; F43.21 Adjustment disorder with depressed mood
CPT/HCPCS: 71010; 80048; 80053; 80061; 80202; 81001; 81003; 82565; 82652; 82728; 82962; 83036; 83540; 83605; 83735; 83935; 84100; 84300; 84439; 84443; 84484; 84520; 84703; 85025; 85049; 85610; 85670; 85730; 86803; 87040; 87081; 87340; 88305; 88307; 88311; 93005; J0360; J0690; J0692; J1100; J1170; J1650; J1815; J1885; J2250; J2270; J2370; J2405; J2765; J2795; J2916; J3010; J3370; J3480; J7042; Q4118

== ENCOUNTER 2017-01-10 15:12 | Emergency (ER) | payer BC ==
[~2017-01-10] VITALS: Ht 172.7 cm; Wt 75.0 kg
[~2017-01-10 15:12] MED LIST changes: -ASPI81TA3 PO; -ATOR10TA65 PO; +ATOR40TA68 PO; +CHOL20003 PO; +DOCU-216 PO; +FAMO20TA18 PO; +LACT1CAP57 PO; +LISI-313 PO; -LISI10TA2 PO; +MIRT15TA5 PO; +MORP15TA3 PO; +MULTI PO; -ZOC10 PO
[2017-01-10 15:15] VITALS: Ht 172.7 cm; Wt 75.0 kg
[2017-01-10 16:41] LABS: ADD UMIC YES; UR BILIRUBIN (Dip) NEGATIVE (NEGATIVE); UR BLOOD (Dip) TRACE (NEGATIVE); UR CLARITY CLEAR (CLEAR); UR COLOR DK. BLUE (YELLOW); UR GLUCOSE (Dip) NEGATIVE (NEGATIVE); UR KETONES (Dip) NEGATIVE (NEGATIVE); UR LEUKOCYTE ESTERASE (Dip) 3+ (NEGATIVE); UR NITRITE (Dip) POSITIVE (NEGATIVE); UR TOTAL PROTEIN (Dip) NEGATIVE (NEGATIVE); UR UROBILINOGEN (Dip) 0.2 E.U./dL (0.1-1.0)
[2017-01-10 16:48] LABS: UR BACTERIA MANY
[2017-01-10] MEDS ORDERED: CIPR500T4 PO (17:14)
[2017-01-10] MEDS ORDERED: CEFTRIAXONE 1 GM INJ IM ONE (17:30)
[2017-01-10] MEDS ORDERED: LIDOCAINE 1% (MDV) 20 ML INJ SC ONE (17:30)
--- NOTE | 2017-01-10 17:48 | ERD ---
ER Documentation Chief Complaint Date/Time DATE: 01/10/17 TIME: 17:37 Chief Complaint Complains of urine problems HPI 51-year-old female with history of diabetes is complaining of dysuria since this morning. Patient had a Vee catheter placed 1.5 month ago after right BKA surgery. Patient states that she had not noticed any urinary output in the collection bag today. She also reports bladder distention. She had a previous left leg amputation at the hip. The Vee catheter was placed because she was unable to use a bedpan or bedside commode immediately after surgery because of pain. She saw her PCP 2 weeks ago, and there was no mention of removing the Vee. Patient denies any fever or chills. Denies flank pain. Denies nausea vomiting. ROS All systems reviewed and are negative except as per history of present illness. Medications Home Meds Active Scripts Ciprofloxacin Hcl* (Ciprofloxacin Hcl*) 500 Mg Tablet, 500 MG PO BID for 10 Days , TAB Prov:LURDES IQBAL USER INTERFACE DEVELOPER 01/10/17 Multivitamins* (Theragran*) 1 Tab Tab, 1 TAB PO DAILY for 30 Days, #30 TAB Prov:GASTON CELAYA MD 12/09/16 Cholecalciferol (Vitamin D3) (VITAMIN D-3) 2,000 Unit Capsule, 2000 UNIT PO DAILY for 30 Days, #30 CAP Prov:GASTON CELAYA MD 12/09/16 Lactobacillus Rhamnosus* (Culturelle*) 1 Each Cap.sprink, 1 CAP PO BID for 10 Days, #20 CAP Prov:GASTON CELAYA MD 12/09/16 Famotidine* (Famotidine*) 20 Mg Tablet, 20 MG PO HS for 7 Days, #7 TAB Prov:GASTON CELAYA MD 12/09/16 Docusate Sodium (Dok) 100 Mg Capsule, 100 MG PO HS for 10 Days, #10 CAP 4 Refills Prov:GASTON CELAYA MD 12/09/16 Morphine Sulfate (Morphine Sulfate ER) 15 Mg Tablet.er, 15 MG PO BID for 14 Days , #30 TAB Prov:GASTON CELAYA MD 12/09/16 Mirtazapine* (Mirtazapine*) 15 Mg Tablet, 15 MG PO HS for 30 Days, #30 TAB Prov:GASTON CELAYA MD 12/09/16 Atorvastatin* (Atorvastatin*) 40 Mg Tablet, 40 MG PO DAILY@21 for 30 Days, #30 TAB 1 Refill Prov:GASTON CELAYA MD 12/09/16 Lisinopril* (Lisinopril*) 5 Mg Tablet, 5 MG PO DAILY for 14 Days, #14 TAB 1 Refill Prov:GASTON CELAYA MD 12/09/16 Clopidogrel Bisulfate (Clopidogrel) 75 Mg Tablet, 75 MG PO DAILY for 30 Days, TAB 4 Refills Prov:KELLEY BEVERLY S. 10/28/16 Insulin Glargine* (Lantus*) 100 Unit/Ml Soln, 5 UNIT SC HS for 30 Days Prov:BI VALLEJO MD 09/23/16 Reported Medications Insulin Glulisine (Apidra Solostar) 100 Unit/1 Ml Insuln.pen, 2 UNIT SQ AC MEALS , #1 TUB SLIDING SCALE NO SCALE GIVEN 11/11/16 Gabapentin* (Gabapentin*) 300 Mg Capsule, 300 MG PO TID, CAP 10/13/16 Allergies Allergies: Coded Allergies: No Known Allergy (Unverified , 01/10/17) PMhx/Soc History of Surgery: Yes (bilateral leg amputations due to diabetes) Anesthesia Reaction: No Hx Neurological Disorder: Yes (polyneuropathy) Hx Respiratory Disorders: No Hx Cardiac Disorders: Yes Hx Psychiatric Problems: Yes (depressed mood) Hx Miscellaneous Medical Probl: No (diabetes) Hx Alcohol Use: No Hx Substance Use: No Hx Tobacco Use: No Smoking Status: Unknown if ever smoked Physical Exam Vitals Vital Signs Date Time Temp Pulse Resp B/P Pulse Ox O2 Delivery O2 Flow Rate FiO2 01/10/17 15:15 97.2 74 20 139/70 100 Physical Exam General: Well-developed, well-nourished, conscious and coherent, in no distress Skin: Warm and dry without rash, good texture and turgor Head: Normocephalic without evidence of trauma Eyes: Sclera and conjunctivae normal; pupils equal, round, and reactive to light; extraocular movements are intact Neck: Supple without meningismus or adenopathy. Carotids are equal. Trachea midline. No bruits or JVD Chest: Normal AP diameter. Good expansion without retractions. Nontender. Lungs are clear to auscultate bilaterally with good tidal volume Heart: Regular rate and rhythm. No murmur, rub, or gallops heard Abdomen: Soft and nontender without masses, guarding, or rebound. Bowel sounds are active. No hepatosplenomegaly Back: Without spinal or CVA tenderness Pelvis: Suprapubic tenderness Extremities: Left lower extremity amputation at the hip, right below the knee amputation. No clubbing, cyanosis, or edema. Peripheral pulses are intact. Sensation intact Neuro: Alert and oriented 4, GCS 15. Cranial nerves grossly intact. Motor and sensory exams nonfocal. Moves all extremities. Speech clear. Gait normal Results 24 hrs Laboratory Tests Test 01/10/17 15:47 Urine Color DK. BLUE Urine Clarity CLEAR Urine pH 8.5 Urine Specific Ucon 1.010 Urine Ketones NEGATIVE Urine Nitrite POSITIVE Urine Bilirubin NEGATIVE Urine Urobilinogen 0.2 E.U./dL Urine Leukocyte Esterase 3+ Urine Microscopic RBC 2-5/HPF Urine Microscopic WBC >50/HPF Urine Bacteria MANY Urine Hemoglobin TRACE Urine Glucose NEGATIVE% Urine Total Protein NEGATIVE Current Medications Medications (Trade) Dose Ordered Sig/Nathen Route PRN Reason Start Time Stop Time Status Last Admin Dose Admin Ceftriaxone Sodium (Rocephin) 1 gm ONCE ONCE IM 01/10/17 17:30 01/10/17 17:31 DC 01/10/17 17:19 Lidocaine (Xylocaine 1% (Mdv) 20 ml) 1 ml ONCE ONCE SC 01/10/17 17:30 01/10/17 17:31 DC 01/10/17 17:20 Procedures/MDM Indwelling Vee catheter removed, a new Vee catheter inserted. Patient voided 600 mL of urine. Vee was flushed, large amount of vegetative growth was flushed out. However, the new Vee still appeared to be clogged. After determining that the reason of the initial Vee insertion was to help patient void when she was seen pain, I discussed with patient about removing the Vee. Patient says she is able to use the bedpan now on her own. She agrees with Vee removal. Vee catheter was removed on the patient. Patient able to void on her own. UA: Leukocyte esterase: 3+ Nitrite: Positive Bacteria: Many Patient has a urinary tract infection secondary to indwelling Vee catheter. Urine cultures pending low suspicion for pyelonephritis. Rocephin 1 g IM given to the patient in the ED. Patient appears well, stable for discharge and outpatient management. Medical decision making shared with patient and family. Education provided to patient and family. Patient and family expressed understanding of the plan. Medications on discharge: Cipro. Follow-up: Primary care provider in 2-3 days or return to ED if worse. Departure Diagnosis: Primary Impression: Catheter-associated urinary tract infection Indwelling urinary catheter type: indwelling urethral catheter Encounter type : initial encounter Qualified Code: T83.511A - Urinary tract infection associated with indwelling urethral catheter, initial encounter Condition: Stable Patient Instructions: Catheter-Associated Urinary Tract Infections Additional Instructions: Llame al doctor MAANA y oscar stefano MANUEL PARA DENTRO DE 2-3 NOE.Dgale a la secretaria que nosotros le instruimos hacer esta manuel.Avise o llame si pierre condicin se empeora antes de la manuel. Regresa aqui si peor o no mejor. LURDES IQBAL NP Jan 10, 2017 17:48
== END 2017-01-10 17:41 | disposition home or self-care (01) ==
LOC: FTE 15:12
DX: T83.511A Infection and inflammatory reaction due to indwelling urethral catheter, initial encounter (principal); E11.9 Type 2 diabetes mellitus without complications; Y73.3 Surgical instruments, materials and gastroenterology and urology devices (including sutures) associated with adverse incidents; Z79.01 Long term (current) use of anticoagulants; Z79.4 Long term (current) use of insulin
CPT/HCPCS: 51702; 81001; 87086; 96372; J0696; Z7502